=== PATIENT | female | born 1960 | race Caucasian/White ===

== ENCOUNTER 2022-11-07 15:54 | Outpatient (OUT) | payer MEDICARE, OTHER, MEDICAID, SELFPAY ==
--- NOTE | 2022-11-07 15:58 | XR_ITS ---
The [address] [address] Patient Name: CARLA ABDI MRN: [facility]:[id number] date: 1960 Sex: F Assigned Patient Location: [facility] Current Patient Location: Accession/Order Number: [id number] Exam Date: 11/07/2022 16:01 Report Date: 11/09/2022 07:31 At the request of: SOLITARIO EDWARDS Procedure: XR cervical spine 5V Exam: Radiographs: XR cervical spine 5V Reason for exam: M54.2 CERVICALGIA Comparison: Plain films dated 08/22/2021 XR/XR cervical spine 5V IMPRESSION: Anterior and posterior C4-C7 plate and screw fusion, hardware is intact. No radiographically evident cervical spine fractures or malalignment. Mild cervical spine degenerative changes. Remainder unremarkable. Electronically authenticated by: ADINA LOPEZ Date: 11/09/2022 07:31
== END 2022-11-07 15:55 | disposition home or self-care (01) ==
PROVIDERS: PCP Nurse Practitioner Family; Visit Provider Nurse Practitioner Family
DX: M54.2 Cervicalgia (principal)
CPT/HCPCS: 72050

== ENCOUNTER 2022-11-10 12:54 | Outpatient (OUT) | payer MEDICARE, OTHER, MEDICAID, SELFPAY ==
--- NOTE | 2022-11-10 15:32 | P.CN_ITS ---
Consult Note: HPI Data of Consult Patient: new to practice Consult date: 11/10/22 Requesting Physician: Manuel Reynaga MD Primary Care Provider: SOLITARIO EDWARDS Consult Narrative Reason for consult: neck pain, low back pain Narrative: 62yof who presents for evaluation. increasing axial neck pain that has been on going for years, but continues to worsen. previously underwent fusion c4-7. imaging reviewed, which is significant for spondylosis above level of fusion. engages in >6 weeks of provider directed home exercise, which provides minimal relief. utilizes various pain medications, with limited benefit. cc:: CC: Manuel Reynaga MD Review of Systems ROS Status of ROS 10 or more systems reviewed and unremarkable except as noted in history and below Exam Narrative Exam Narrative: Psych-alert and oriented x 3.? Attentive and appropriate, constitutionally normal, displays normal mood and affect per situation.? There are no obvious deficits in memory, reasoning, or intellect.? Skin-no obvious rashes, bruising, or erythema noted to the patient's area of pain. Extremities-upper extremities are warm with minimal edema and palpable pulses. Cervical- tenderness to palpation noted in the cervical spine and paraspinal musculature.? Pain is elicited with extension, and lateral rotation of the cervical spine.? Range of motion is slightly diminished due to pain. Facet loading maneuvers are positive bilaterally.? Coordination remains intact.? Gait remains non-antalgic. Assessment and Plan Assessment and Plan (1) Cervical spondylosis: (2) Cervical postlaminectomy syndrome: Plan 62yof who presents for evaluation. failed conservative measures. imaging reviewed, as noted. given symptoms and imaging, prudent to attempt diagnostic bilateral c2-3, c3-4 medial branch blocks under fluoroscopic guidance with intention of proceeding to radiofrequency ablation. she is in agreement. medications were reviewed. will trial robaxin 750mg tid prn. follow up after procedure.
== END 2022-11-10 12:55 | disposition home or self-care (01) ==
PROVIDERS: PCP Nurse Practitioner Family; Visit Provider Anesthesiology
DX: M47.812 Spondylosis without myelopathy or radiculopathy, cervical region (principal); M96.1 Postlaminectomy syndrome, not elsewhere classified
CPT/HCPCS: G0463

== ENCOUNTER 2022-11-11 11:43 | Outpatient (OUT) | payer MEDICARE, OTHER, MEDICAID, SELFPAY ==
--- NOTE | 2022-11-11 | XR_ITS ---
The [place] [id number] Patient Name: CARLA ABDI MRN: [facility]:[id number] date: 1960 Sex: F Assigned Patient Location: [facility] Current Patient Location: Accession/Order Number: [id number] Exam Date: 11/11/2022 12:05 Report Date: 11/12/2022 08:20 At the request of: OZZIE GIEDRADON Procedure: XR sacrum coccyx min 2V EXAMINATION: XR sacrum coccyx min 2V, XR lumbar spine 6V w bending HISTORY: Low back pain , chronic COMPARISON: No relevant comparison available. FINDINGS: BONES: 13 mm anterior listhesis of L4 on 5 without appreciable pars interarticularis defects. Moderate degenerative facet arthropathy L4-5, L5-S1. No compression fracture. DISC SPACES: Marked narrowing L4-5. Moderate narrowing L5-S1. PARASPINOUS: Negative. No paraspinous abnormality is seen. SACRUM: No fracture, disruption of the sacral ala line, or cortical irregularity. COCCYX: No fracture or suspicious alignment. SOFT TISSUES: No widening of the sacroiliac joints. No radiopaque foreign body. OTHER: Mild narrowing of the hip joint spaces, left greater than right. XR/XR sacrum coccyx min 2V IMPRESSION: 1. L4-5 grade 2 anterior listhesis and marked degenerative disc disease. 2. L5-S1 moderate degenerative disc disease. 3. Unremarkable sacrum and coccyx. 4. Mild degenerative changes of the hip joints, left greater than right. Electronically authenticated by: DENNY RINCON Date: 11/12/2022 08:20
--- NOTE | 2022-11-11 11:56 | XR_ITS ---
The [place] [id number] Patient Name: CARLA ABDI MRN: [facility]:[id number] date: 1960 Sex: F Assigned Patient Location: [facility] Current Patient Location: Accession/Order Number: [id number] Exam Date: 11/11/2022 12:05 Report Date: 11/12/2022 08:20 At the request of: LENORERI GIEDRAITIS Procedure: XR lumbar spine 6V w bending EXAMINATION: XR sacrum coccyx min 2V, XR lumbar spine 6V w bending HISTORY: Low back pain , chronic COMPARISON: No relevant comparison available. FINDINGS: BONES: 13 mm anterior listhesis of L4 on 5 without appreciable pars interarticularis defects. Moderate degenerative facet arthropathy L4-5, L5-S1. No compression fracture. DISC SPACES: Marked narrowing L4-5. Moderate narrowing L5-S1. PARASPINOUS: Negative. No paraspinous abnormality is seen. SACRUM: No fracture, disruption of the sacral ala line, or cortical irregularity. COCCYX: No fracture or suspicious alignment. SOFT TISSUES: No widening of the sacroiliac joints. No radiopaque foreign body. OTHER: Mild narrowing of the hip joint spaces, left greater than right. XR/XR lumbar spine 6V w bending IMPRESSION: 1. L4-5 grade 2 anterior listhesis and marked degenerative disc disease. 2. L5-S1 moderate degenerative disc disease. 3. Unremarkable sacrum and coccyx. 4. Mild degenerative changes of the hip joints, left greater than right. Electronically authenticated by: DENNY RINCON Date: 11/12/2022 08:20
== END 2022-11-11 11:44 | disposition home or self-care (01) ==
LOC: RAD 11:48
PROVIDERS: PCP Nurse Practitioner Family; Visit Provider Anesthesiology
DX: M54.50 Low back pain, unspecified (principal); M51.37 Other intervertebral disc degeneration, lumbosacral region; M51.36 Other intervertebral disc degeneration, lumbar region
CPT/HCPCS: 72114; 72220

== ENCOUNTER 2022-11-17 11:12 | Day surgery (SDC) | payer MEDICARE, OTHER, MEDICAID, SELFPAY ==
[2022-11-17 12:22] VITALS: BP 140/83; PULSE 82; RESP 16; TEMP 36.2; O2SAT 100
[2022-11-17] MEDS: BUPIVACAINE HCL 0.25% PF 25 MG/10 ML VIAL INJ (13:13)
[2022-11-17] MEDS: DEXAMETHASONE SODIUM PHOSPHATE 10 MG/ML VIAL INJ (13:13)
[2022-11-17] MEDS: LIDOCAINE HCL 2% PF 100 MG/5 ML VIAL INJ (13:14)
[2022-11-17 13:15] VITALS: BP 137/67; BP 160/72; PULSE 70; PULSE 81; RESP 18; O2SAT 94; O2SAT 95
--- NOTE | 2022-11-17 13:17 | W.PM.PROCNOT ---
Date of procedure: 11/17/22 Pre-op diagnosis: Cervical spondylosis Post-op diagnosis: same as pre-op Procedure: Procedure: Bilateral C2-3, C3-4 medial branch block Medications: Bupivacaine 0.25% 4cc The patient was seen and examined in the preoperative holding area.? The informed consent was obtained and placed on the chart.? The patient was brought to the medical procedure unit and placed in the prone position.? A timeout was completed verifying correct patient, procedure site, positioning, plan, and special equipment.? Using aseptic technique, the needle was placed at left C2.? Under direct fluoroscopic visualization, a Quincke tip needle was advanced to the midpoint of the waist of the articular pillar at the respective medial branch segment. The above-mentioned injectate was placed in a 1 mL aliquot proceeded by negative aspiration.? The needle was removed.? The procedure was completed at all left C3, 4. The same procedure, at the same levels, was then completed on the right side. Insertion site was covered.? Patient was taken to the postprocedural recovery area and monitored for an appropriate length of time before found suitable for discharge in the accompaniment of a responsible adult. Anesthesia: Local Surgeon: Manuel Reynaga Pathology: none sent Condition: stable Disposition: no change
== END 2022-11-17 13:23 | disposition home or self-care (01) ==
PROVIDERS: PCP Nurse Practitioner Family; Visit Provider Anesthesiology
DX: M47.812 Spondylosis without myelopathy or radiculopathy, cervical region (principal)
CPT/HCPCS: 64490; 64491; J1100

== ENCOUNTER 2022-12-04 09:06 | Outpatient (OUT) | payer MEDICARE, OTHER, MEDICAID, SELFPAY ==
--- NOTE | 2022-12-04 09:15 | PM.CN ---
Consult Note: HPI Data of Consult Patient: known to practice within the last 3 years Consult date: 12/04/22 Requesting Physician: Angle Brownlee NP Primary Care Provider: SOLITARIO EDWARDS Consult Narrative Reason for consult: F/u Narrative: Nancy Joyce a pleasant 62 year old female presents for evaluation of chronic neck pain, post cervical fusion. Patient recently underwent Bilateral C2-3, C3-4 medial branch block with >80% pain relief and functional improvement immediately following and hours after. Today rating pain 5/10 in neck and shoulders. Pain in bilateral hips and thighs today as well interfering with sleep. Patient has not noticed improvement in symptoms since starting robaxin, would like to discuss alternatives. cc:: CC: Angle Brownlee NP Review of Systems ROS Status of ROS 10 or more systems reviewed and unremarkable except as noted in history and below Musculoskeletal Reports: neck pain and joint pain (bilateral GTB) Meds Home Medications and Allergies Home Medications Medication Instructions Recorded Confirmed Type alprazolam 0.25 mg tablet (Xanax) 0.25 mg PO DAILY PRN anxiety 11/10/22 11/17/22 History diclofenac sodium 75 mg 75 mg PO BID 11/10/22 11/17/22 History tablet,delayed release escitalopram oxalate 10 mg tablet 10 mg PO DAILY 11/10/22 11/17/22 History (Lexapro) methocarbamol 750 mg tablet 750 mg PO TID 11/10/22 11/17/22 History Allergies Allergy/AdvReac Type Severity Reaction Status Date / Time No Known Drug Allergies Allergy Verified 11/10/22 16:09 Exam Constitutional Documenting provider has reviewed patient's vital signs: yes Common normals: no apparent distress, oriented x3, healthy appearing, alert and well nourished General appearance: cooperative [facility] Common normals: normocephalic, hearing grossly normal bilaterally and moist oral mucous membranes Head and scalp: normocephalic Eye Common normals: PERRL Pupil: PERRL Neck & C-Spine General: normal visual inspection Cervical spine: cervical ROM abnormal, pain with cervical ROM, cervical spine tenderness and paracervical muscle spasm Other: pain over C2-3 C3-4 facets no radiculopathy axial neck pain Chest Common normals: inspection of chest normal Respiratory Common normals: normal respiratory effort, no retractions and no use of accessory muscles Back & Pelvis Lumbar spine/lower back: pain with ROM Other: tenderness over bilateral GTB, pain radiates down lateral thighs when lying on side no radiculopathy negative internal/external rotation and thigh thrust. JIMENA negative Extremity Common normals: normal to inspection and full ROM Right lower extremity: hip joint Left lower extremity: hip joint Other: tenderness over bilateral GTB, pain radiates down lateral thighs when lying on side no radiculopathy negative internal/external rotation and thigh thrust. JIMENA negative Neuro Common normals: oriented x3, CN's II-XII intact bilaterally, moves all extremities, no focal motor deficits, no sensory deficits noted, deep tendon reflexes 2+ bilaterally and gait normal Sensorium/orientation: alert Motor exam: strength 5/5 throughout and no movement abnormalities noted Psych Common normals: mental status grossly normal, thought process normal, cooperative, affect normal, speech normal and activity/motor behavior normal Speech: normal speech Thought process: normal thought process Results Additional Findings Additional findings: I have checked an OARRS report on this patient today and there are no aberrancies noted in the prescribing history.?? A drug screen was completed and reviewed within the last year, and if there has not been a drug screen completed we ordered one today to monitor higher risk, state monitored pain medication use. As part of providing excellent, safe, comprehensive care, the following was completed at our patient's visit: 1. A medication reconciliation and review to ensure accurate knowledge of current/active medications, including asking our patients to inform us about any mcjl-smk-nodwfft medications or herbal remedies/nutritional supplements/alternative remedies. 2. A review to specifically ensure our patients have had annual screening for: elevated body mass index (BMI), tobacco use, screening for depression, and screening for unhealthy alcohol use. When screening is concerning, patients are provided with education and the specific recommendation to discuss the concerning health issue and treatment options with their primary care provider. Assessment and Plan Assessment and Plan (1) Cervical spondylosis: (2) Cervical postlaminectomy syndrome: (3) Muscle spasm: (4) Greater trochanteric bursitis of both hips: Assessment and Plan: encouraged heat/ice rest continue NSAIDs Plan proceed with bilateral C2-3 C3-4 MBB#2 under fluoroscopy continue HEP stop robaxin start baclofen 10mg tab 1/2-1 tab BID PRN muscle spasms continue voltaren 75mg BID patient utilizes prn xanax encouraged heat/ice rest for bilateral GT bursitis, can consider injection therapy in the future f/u 1 week after MBB #2
== END 2022-12-04 09:07 | disposition home or self-care (01) ==
LOC: PM 09:07
PROVIDERS: PCP Nurse Practitioner Family; Visit Provider Nurse Practitioner
DX: M47.812 Spondylosis without myelopathy or radiculopathy, cervical region (principal); M62.838 Other muscle spasm; M70.62 Trochanteric bursitis, left hip; M70.61 Trochanteric bursitis, right hip; M96.1 Postlaminectomy syndrome, not elsewhere classified
CPT/HCPCS: G0463

== ENCOUNTER 2022-12-15 10:07 | Day surgery (SDC) | payer MEDICARE, OTHER, MEDICAID, SELFPAY ==
[2022-12-15 10:20] VITALS: BP 144/90; PULSE 80; RESP 16; TEMP 36.2; O2SAT 97
[2022-12-15 11:12] VITALS: BP 169/84; PULSE 84; RESP 18; O2SAT 98
[2022-12-15] MEDS: BUPIVACAINE HCL 0.25% PF 25 MG/10 ML VIAL 5 ML INJ (11:14)
[2022-12-15] MEDS: DEXAMETHASONE SOD PHOS 10 MG/ML VIAL 5 MG INJ (11:14)
[2022-12-15] MEDS: LIDOCAINE HCL 2% PF 100 MG/5 ML VIAL INJ (11:15)
[2022-12-15 11:16] VITALS: BP 168/80; PULSE 82; RESP 18; O2SAT 94
--- NOTE | 2022-12-15 11:17 | W.PM.PROCNOT ---
Date of procedure: 12/15/22 Pre-op diagnosis: Cervical spondylosis Post-op diagnosis: same as pre-op Procedure: Procedure: Bilateral C2-3, C3-4 medial branch block Medications: Bupivacaine 0.25% 4cc The patient was seen and examined in the preoperative holding area.? The informed consent was obtained and placed on the chart.? The patient was brought to the medical procedure unit and placed in the prone position.? A timeout was completed verifying correct patient, procedure site, positioning, plan, and special equipment.? Using aseptic technique, the needle was placed at left C2.? Under direct fluoroscopic visualization, a Quincke tip needle was advanced to the midpoint of the waist of the articular pillar at the respective medial branch segment. The above-mentioned injectate was placed in a 1 mL aliquot proceeded by negative aspiration.? The needle was removed.? The procedure was completed at all left C3, 4. The same procedure, at the same levels, was then completed on the right side. Insertion site was covered.? Patient was taken to the postprocedural recovery area and monitored for an appropriate length of time before found suitable for discharge in the accompaniment of a responsible adult. Anesthesia: Local Surgeon: Manuel Reynaga Pathology: none sent Condition: stable Disposition: no change
== END 2022-12-15 11:23 | disposition home or self-care (01) ==
PROVIDERS: PCP Nurse Practitioner Family; Visit Provider Anesthesiology
DX: M47.812 Spondylosis without myelopathy or radiculopathy, cervical region (principal)
CPT/HCPCS: 64490; 64491; J1100

== ENCOUNTER 2022-12-25 14:15 | Outpatient (OUT) | payer MEDICARE, OTHER, MEDICAID, SELFPAY ==
--- NOTE | 2022-12-25 14:39 | PM.CN ---
Consult Note: HPI Data of Consult Patient: known to practice within the last 3 years Requesting Physician: Angle Brownlee NP Primary Care Provider: SOLITARIO EDWARDS Consult Narrative Reason for consult: f/u Narrative: Nancy Joyce a pleasant 62 year old female presents for evaluation and management of chronic neck pain. Patient rating pain 7/10 pulling sharp pain. Patient had 80% pain relief and functional improvement immediately after and hours following bilateral C2-3 C3-4 MBB #2. Patient would like to purse thermal RFA but she is leaving for [place] until spring as of this week. Patient would like to discuss medication management today. cc:: CC: Angle Brownlee NP Review of Systems ROS Status of ROS 10 or more systems reviewed and unremarkable except as noted in history and below Musculoskeletal Reports: back pain Meds Home Medications and Allergies Home Medications Medication Instructions Recorded Confirmed Type alprazolam 0.25 mg tablet (Xanax) 0.25 mg PO DAILY PRN anxiety 11/10/22 12/15/22 History diclofenac sodium 75 mg 75 mg PO BID 11/10/22 12/15/22 History tablet,delayed release escitalopram oxalate 10 mg tablet 10 mg PO DAILY 11/10/22 12/15/22 History (Lexapro) methocarbamol 750 mg tablet 750 mg PO TID 11/10/22 12/15/22 History Allergies Allergy/AdvReac Type Severity Reaction Status Date / Time No Known Drug Allergies Allergy Verified 12/15/22 10:25 Exam Constitutional Documenting provider has reviewed patient's vital signs: yes Common normals: no apparent distress, oriented x3, healthy appearing, alert and well nourished General appearance: cooperative HENMT Common normals: normocephalic, hearing grossly normal bilaterally and moist oral mucous membranes Head and scalp: normocephalic Eye Common normals: PERRL Pupil: PERRL Neck & C-Spine Common normals: full ROM General: normal visual inspection Cervical spine: cervical ROM abnormal, pain with cervical ROM, cervical spine tenderness and paracervical muscle spasm Other: pain over C2-3 C3-4 facets no radiculopathy axial neck pain Chest Common normals: inspection of chest normal Respiratory Common normals: normal respiratory effort, no retractions and no use of accessory muscles Back & Pelvis Lumbar spine/lower back: pain with ROM Other: tenderness over bilateral GTB, pain radiates down lateral thighs when lying on side no radiculopathy negative internal/external rotation and thigh thrust. JIMENA negative Extremity Common normals: normal to inspection and full ROM Right lower extremity: hip joint Left lower extremity: hip joint Other: tenderness over bilateral GTB, pain radiates down lateral thighs when lying on side no radiculopathy negative internal/external rotation and thigh thrust. JIMENA negative Neuro Common normals: oriented x3, CN's II-XII intact bilaterally, moves all extremities, no focal motor deficits, no sensory deficits noted and deep tendon reflexes 2+ bilaterally Sensorium/orientation: alert Motor exam: strength 5/5 throughout and no movement abnormalities noted Psych Common normals: mental status grossly normal, thought process normal, cooperative, affect normal, speech normal and activity/motor behavior normal Speech: normal speech Thought process: normal thought process Results Additional Findings Additional findings: I have checked an OARRS report on this patient today and there are no aberrancies noted in the prescribing history.?? A drug screen was completed and reviewed within the last year, and if there has not been a drug screen completed we ordered one today to monitor higher risk, state monitored pain medication use. As part of providing excellent, safe, comprehensive care, the following was completed at our patient's visit: 1. A medication reconciliation and review to ensure accurate knowledge of current/active medications, including asking our patients to inform us about any jrck-kqg-ptmvnst medications or herbal remedies/nutritional supplements/alternative remedies. 2. A review to specifically ensure our patients have had annual screening for: elevated body mass index (BMI), tobacco use, screening for depression, and screening for unhealthy alcohol use. When screening is concerning, patients are provided with education and the specific recommendation to discuss the concerning health issue and treatment options with their primary care provider. 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
== END 2022-12-25 14:16 | disposition home or self-care (01) ==
LOC: PM 14:19
PROVIDERS: PCP Nurse Practitioner Family; Visit Provider Nurse Practitioner
DX: M47.812 Spondylosis without myelopathy or radiculopathy, cervical region (principal); M96.1 Postlaminectomy syndrome, not elsewhere classified; M62.838 Other muscle spasm; M70.62 Trochanteric bursitis, left hip; M70.61 Trochanteric bursitis, right hip; Z79.899 Other long term (current) drug therapy
CPT/HCPCS: G0463

== ENCOUNTER 2023-07-06 12:43 | Outpatient (OUT) | payer MEDICARE, OTHER, MEDICAID, SELFPAY ==
--- OUTSIDE RECORDS SUMMARY | 2023-07-06 13:04 | XMS_ITS | CCD ---
Author Organization [facility] Care Team Providers Care Director [facility] Name Role Phone MD Nesha Bryant Attending Provider JIE Edwards Primary Care Provider 1( [phone] Asadelfino, Imad Unavailable Ama Edwards Primary Care Unavailable Asaad, Imad Attending Unavailable Asaad, Imad Admitting Unavailable JERRY, AMA Attending Unavailable JERRY, AMA Consulting Unavailable JERRY, AMA Primary Care Unavailable JERRY, AMA Admitting Unavailable JERRY, AMA Attending Unavailable JERRY, AMA Primary Care Unavailable JERRY, AMA Admitting Unavailable PAULINO, LOLIS Admitting Unavailable PAULINO, LOLIS Attending Unavailable PAULINO, LOLIS Consulting Unavailable JERRY, AMA Primary Care Unavailable SOLEDAD, DR GEORGE Lam Consulting Unavailable JERRY, AMA Attending Unavailable JERRY, AMA Primary Care Unavailable JERRY, AMA Admitting Unavailable JERRY, AMA Consulting Unavailable JERRY, AMA Admitting Unavailable ZIEBER, DR DENNY Franz Consulting Unavailable JERRY, AMA Attending Unavailable JERRY, AMA Primary Care Unavailable JERRY, AMA Consulting Unavailable JERRY, AMA Admitting Unavailable JERRY, AMA Attending Unavailable ZIEBSAUL, DR DENNY Franz Consulting Unavailable JERRY, AMA Primary Care Unavailable JERRY, AMA Consulting Unavailable George Catalan Unavailable JERRY, AMA Primary Care Unavailable JERRY, AMA Attending Unavailable JERRY, AMA Primary Care Unavailable SOLEDAD, DR GEORGE Lam Consulting Unavailable JERRY, AMA Admitting Unavailable JERRY, AMA Consulting Unavailable Juhi LEON, Manuel Yoo Attending Unavailable Juhi LEON, Manuel Yoo Attending Unavailable Juhi LEON, Manuel Yoo Attending Unavailable Medications Current Medications Medication Drug Class(es) Dates Sig (Normalized) Sig (Original) ALPRAZolam 0.25 mg oral tablet (3 sources) Benzodiazepine Start: 05-09-2022 take 0.25 mg by mouth once daily Alprazolam Active 0.25 MG PO Daily May 09, 2022 12:00am ALPRAZolam Activ e busPIRone hydrochloride 10 mg oral tablet (1 source) Start: 05-09-2022 Buspirone Active 10 MG PO As Directed May 09, 2022 12:00am hydrOXYzine hydrochloride 10 mg oral tablet (2 sources) Antihistamine hydrOXYzine HCl 10 MG as directed Orally Active omeprazole 40 mg delayed release oral capsule (2 sources) Proton Pump Inhibitor Start: 05-12-2022 take 1 capsule by mouth once daily Omeprazole 40 MG 1 capsule 30 minutes before morning meal Orally Once a day for 30 days Apr, Active polyethylene glycol 3350 555896 mg / potassium chloride 2970 mg / sodium bicarbonate 6740 mg / sodium chloride 5860 mg / sodium sulfate 05283 mg powder for oral solution (2 sources) Osmotic Laxative Start: 05-01-2022 PEG-3350/Electrol ytes 236 GM as directed Orally once daily for 1 days Apr, Active Problems Active Problems Problem Classification Problem Date Documented Da te Episodic/Chronic Disorders of lipid metabolism (1 source) Hyperlipidemia, unspecified; Translations: [HYPERLIPIDEMIA UNSPECIFIED] Onset: 03-17-2022 Chronic Other gastrointestinal disorders (2 sources) Diarrhea; Translations: [Diarrhea, unspecified] Episodic Other gastrointestinal disorders (2 sources) Dysphagia; Translations: [Dysphagia, unspecified] Episodic Other nutritional; endocrine; and metabolic disorders (2 sources) Weight loss; Translations: [Abnormal weight loss] Episodic Spondylosis; intervertebral disc disorders; other back problems (1 source) Other cervical disc degeneration, unspecified cervical region; Translations: [OTH CERV DISC DEGENERATION UNS CERV] Onset: 08-28-2021 Chronic Substance-related disorders (5 sources) Nicotine dependence, unspecified, uncomplicated; Translations: [NICOTINE DEPEND UNS UNCOMPLICATED] Onset: 08-22-2021 Chronic Unclassified (1 source) Encounter for screening for malignant neoplasm of colon; Translations: [Encounter for screening for malignant neoplasm of colon] Onset: 05-09-2022 Unclassified (3 sources) CONTACT W/AND (SUSP) EXPOS COVID-19; Translations: [CONTACT W/AND (SUSP) EXPOS COVID-19] Onset: 02-01-2022 Unclassified (1 source) COUGH, UNSPECIFIED; Translations: [COUGH, UNSPECIFIED] Onset: 02-01-2022 Past or Other Problems Problem Classification Problem Date Documented Da te Episodic/Chronic Deficiency and other anemia (1 source) Anemia, unspecified; Translations: [ANEMIA UNSPECIFIED] Onset: 03-17-2022 Episodic Diabetes mellitus without complication (1 source) Other abnormal glucose; Translations: [OTHER ABNORMAL GLUCOSE] Onset: 03-17-2022 Episodic Fever of unknown origin (1 source) Fever, unspecified; Translations: [FEVER UNSPECIFIED] Onset: 02-01-2022 Episodic Other gastrointestinal disorders (5 sources) Dysphagia, unspecified; Translations: [DYSPHAGIA UNSPECIFIED] Onset: 03-25-2022 Episodic Other nutritional; endocrine; and metabolic disorders (5 sources) Abnormal weight loss; Translations: [ABNORMAL WEIGHT LOSS] Onset: 03-12-2022 Episodic Other screening for suspected conditions (not mental disorders or infectious disease) (6 sources) Encounter for screening for malignant neoplasm of colon; Translations: [Encounter for screening for malignant neoplasm of rectum] Onset: 08-23-2021 Episodic Residual codes; unclassified (4 sources) Contact with and (suspected) exposure to potentially hazardous body fluids; Translations: [CONTACT AND EXPOS POTENTL HAZ BDY FLUID] Onset: 08-23-2021 Episodic Spondylosis; intervertebral disc disorders; other back problems (2 sources) Cervicalgia; Translations: [Pain in thoracic spine] Onset: 08-28-2021 Episodic Unclassified (1 source) CONTACT W/AND (SUSP) EXPOS COVID-19; Translations: [CONTACT W/AND (SUSP) EXPOS COVID-19] Onset: 01-27-2022 Results Test Name Value Interpretation Reference Range Facility [facility] 05-09-2022 L Specimen: [id number] Received: 05/09/22 Status: EDUARD Zaragoza Num: [id number] Spec Type: Surgical Subm Dr: Nesha Bryant MD Tissues: A Gastric Biopsy (GASTRIC) B Esophagus Biopsy (DISTAL ESOPHAGUS) C Esophagus Biopsy (PROXIMAL ESOPHAGUS) D Colon Biopsy (CECAL POLYP) E Colon Biopsy (SIGMOID POLYP) F Colon Biopsy (RECTAL POLYPS X3) Procedures: , Gross/Micro L4/6 Age/ Patient Sex Location Account Attending Physician Nancy Joyce 61/F [id number] Nesha Bryant MD SPEC NUM: [id number] RECD: 05/09/22 STATUS: EDUARD ZARAGOZA NUM: [id number] KATY: 05/09/22- SUBM DR: Nesha Bryant MD ENTERED: 05/09/22-[address]: SPEC TYPE: Surgical DEPT: S ORDERED: , Gross/Micro L4/6 ORDERED: , Gross/Micro L4/6 Pathological Diagnosis A. Stomach, gastric, biopsy: - Chronic gastritis, mild, nonspecific. - Negative for Helicobacter pylori on H E stain. B. Esophagus, distal, biopsy: - Squamous mucosa, negative for significant histopathologic changes. - Negative for Oconnell?s esophagus (H E stain). - Negative for dysplasia. - Negative for eosinophilic esophagitis. C. Esophagus, proximal, biopsy: - Squamous mucosa, negative for significant histopathologic changes. - Negative for Oconnell?s esophagus (H E stain). - Negative for dysplasia. - Negative for eosinophilic esophagitis. D. Colon, cecum, polyp, biopsy: - Colonic mucosal fold. - Negative for adenoma/dysplasia. Specimen: [id number] Received: 05/09/22 Status: EDUARD Nik Num: [id number] Spec Type: Surgical Subm Dr: Nesha Bryant MD Tissues: A Gastric Biopsy (GASTRIC) B Esophagus Biopsy (DISTAL ESOPHAGUS) C Esophagus Biopsy (PROXIMAL ESOPHAGUS) D Colon Biopsy (CECAL POLYP) E Colon Biopsy (SIGMOID POLYP) F Colon Biopsy (RECTAL POLYPS X3) Procedures: , Gross/Micro L4/6 Patient: Nancy Joyce [id number] (Continued) Specimen: Received: 05/09/22 (Continued) Pathological Diagnosis (Continued) Signed (signature on file) Carin Oliveros MD 05/12/22 1130 Specimen: Received: 05/09/22 Status: EDUARD Zaragoza Num: [id number] Spec Type: Surgical Subm Dr: Nesha Bryant MD Tissues: A Gastric Biopsy (GASTRIC) B Esophagus Biopsy (DISTAL ESOPHAGUS) C Esophagus Biopsy (PROXIMAL ESOPHAGUS) D Colon Biopsy (CECAL POLYP) E Colon Biopsy (SIGMOID POLYP) F Colon Biopsy (RECTAL POLYPS X3) Procedures: ROSI/Barbara, Gross/Micro L4/6 Patient: Nancy Joyce [id number] (Continued) Specimen: Received: 05/09/22 (Continued) Pathological Diagnosis (Continued) E. Colon, sigmoid, polyp, biopsy: - Features suggestive of hyperplastic polyp. F. Rectum, polyp, biopsy: - Colonic mucosal fold. - Negative for adenoma/dysplasia. Clinical Information Dysphagia, rule out H. pylori, rule out EOE Gross Description A. Received in formalin labeled with the patient's name, number and gastric rule out H. pylori are two fragments of soft roblero tissue measuring 0.2 cm and 0.3 cm. Entirely submitted in one cassette labeled A1. B. Received in formalin labeled with the patient's name, number and distal esophagus rule out EOE is one fragment of soft roblero tissue measuring 0.4 x 0.2 x 0.2 cm. Entirely submitted in one cassette labeled B1. C. Received in formalin labeled with the patient's name, number and proximal esophagus rule out EOE are two fragments of soft roblero tissue measuring 0.2 x 0.2 x 0.1 cm and 0.4 x 0.2 x 0.1 cm. Entirely submitted in one cassette labeled C1. D. Received in formalin labeled with the patient's name, number and cecal polyp is one fragment of soft roblero tissue measuring 0.4 x 0.4 x 0.2 cm. Entirely submitted in one cassette labeled D1. E. Received in formalin labeled with the patient's name, number and sigmoid polyp are two fragments of soft roblero tissue measuring 0.2 x 0.2 x 0.1 cm and 0.4 x 0.3 x 0.2 cm. Entirely submitted in one cassette labeled 1. (more content not included)... Normal [facility] XR MODIFIED BARIUM SWALLOWon 03-25-2022 XR MODIFIED BARIUM SWALLOW EXAMINATION: XR MODIFIED BARIUM SWALLOW HISTORY: Dysphagia COMPARISON: No relevant comparison available. TECHNIQUE: A swallowing evaluation was performed with fluoroscopy in the usual manner. Standard level fluoroscopic mode of operation utilized. FINDINGS: ORAL PHASE: Limited due to lack of dentures and multiple recently pulled teeth. Solids were not provided for evaluate of chewing function. Slight delay in initiation of swallowing with pudding and thickened liquid. PHARYNGEAL PHASE: Normal swallowing once initiated. ASPIRATION: None. STRUCTURE: Normal. No visible obstruction, stricture, or dilatation. OTHER: Negative. IMPRESSION: 1. No aspiration, penetration, or abnormal swallowing function was initiated. 2. Slight difficulty in initiating swallowing function. 3. Please see speech pathologist report for additional discussion and recommendations. Electronically authenticated by: DENNY RINCON Date: 2022-03-25 13:53 Normal [facility] INSULINon 03-13-2022 Insulin 3.9 uIU/mL Normal 2.6-24.9 [facility] Comment on above: Performed By: #### O BSCRN #### [facility] [address] [address] [address] Ambrosio Ramirez XR CSPINE MIN 4 VIEWSon 02-23 XR CSPINE MIN 4 VIEWS EXAMINATION: XR CSPINE MIN 4 VIEWS HISTORY: Neck pain ; chronic neck and upper midline back pain COMPARISON: XR C-spine 08/22/2021 FINDINGS: BONES: Anterior and posterior mechanical fusion of C4-C7 without evidence of hardware fracture or loosening. Posterior decompression C4. Straightening of the normal lordotic curvature. DISC SPACES: Mild narrowing C2-3, C3-4. Intervertebral disc spacers C4-5 through C6-7. PARASPINOUS: Negative. No paraspinous abnormality is seen. OTHER: Negative. IMPRESSION: 1. Stable surgical changes without evidence of hardware failure or change in alignment. 2. Grossly stable degenerative changes. Electronically authenticated by: DENNY RINCON Date: 2022-03-13 08:09 Normal [facility] CBC AUTO DIFFon 03-12-2022 BASO # 0.0 103/ul Normal 0.0-0.1 [facility] Comment on above: Performed By: #### C BC #### [facility] [address] [address] [address] Ambrosio Ramirez Basophils/100 WBC (Bld) 0.7 % Normal 0.2-2.0 [facility] Comment on above: Performed By: #### C BC #### [facility] [address] [address] [address] Ambrosio Ramirez EO # 0.1 103/ul Normal 0.0-0.7 [facility] Comment on above: Performed By: #### C BC #### [facility] [address] [address] [address] Ambrosio Ramirez Eosinophils/100 WBC (Bld) 0.9 % Normal 0.9-7.0 [facility] Comment on above: Performed By: #### C BC #### [facility] [address] [address] [address] Ambrosio Ramirez Erythrocyte distribution width (RBC) [Ratio] 12.3 % Normal 11.0-15.0 [facility] Comment on above: Performed By: #### C BC #### [facility] [address] [place] [address] Dr. Ambrosio Ramirez Hematocrit (Bld) [Volume fraction] 46.0 % Normal 36.0-48.0 [facility] Comment on above: Performed By: #### C BC #### [facility] [address] [place] [address] Dr. Ambrosio Ramirez Hemoglobin (Bld) [Mass/Vol] 15.2 g/dL Normal 12.0-16.0 [facility] Comment on above: Performed By: #### C BC #### [facility] [address] [place] [address] Dr. Ambrosio Ramirez IG # 0.03 10e3/ul Normal 0.00-0.03 [facility] Comment on above: Performed By: #### C BC #### [facility] [address] [place] [address] Dr. Ambrosio Ramirez IG % 0.5 % Normal 0.0-0.5 [facility] Comment on above: Performed By: #### C BC #### [facility] [address] [place] [address] Dr. Ambrosio Ramirez LYMPH # 2.0 103/ul Normal 1.2-3.8 [facility] Comment on above: Performed By: #### C BC #### [facility] [address] [place] [address] Dr. Ambrosio Ramirez Lymphocytes/100 WBC (Bld) 35.0 % Normal 20.5-60.0 [facility] Comment on above: Performed By: #### C BC #### [facility] [address] [place] [address] Dr. Ambrosio Ramirez MANUAL DIFF REQ NO Normal [facility] Comment on above: Performed By: #### C BC #### [facility] [address] [place] [address] Dr. Ambrosio Ramirez MCH (RBC) [Entitic mass] 33.8 pg Normal 26.7-34.0 [facility] Comment on above: Performed By: #### C BC #### [facility] [address] [place] [address] Dr. Ambrosio Ramirez MCHC (RBC) [Mass/Vol] 33.0 g/dL Normal 29.9-35.2 [facility] Comment on above: Performed By: #### C BC #### [facility] [address] [place] [address] Dr. Ambrosio Ramirez MCV (RBC) [Entitic vol] 102.2 fL Critically high 81.0-99.0 [facility] Comment on above: Performed By: #### C BC #### [facility] [address] [place] [address] Dr. Ambrosio Ramirez MONO # 0.4 103/ul Normal 0.3-0.8 [facility] Comment on above: Performed By: #### C BC #### [facility] [address] [place] [address] Dr. Ambrosio Ramirez Monocytes/100 WBC (Bld) 7.2 % Normal 1.7-12.0 [facility] Comment on above: Performed By: #### C BC #### [facility] [address] [place] [address] Dr. Ambrosio Ramirez NEUT # 3.2 103/ul Normal 1.4-6.5 [facility] Comment on above: Performed By: #### C BC #### [facility] [address] [place] [address] Dr. Ambrosio Ramirez Neutrophils/100 WBC (Bld) 55.7 % Normal 43.0-75.0 [facility] Comment on above: Performed By: #### C BC #### [facility] [address] [place] [address] Dr. Ambrosio Ramirez Platelet mean volume (Bld) [Entitic vol] 9.1 fL Critically low 9.5-13.5 [facility] Comment on above: Performed By: #### C BC #### [facility] [address] [address] [address] Ambrosio Ramirez PLT 234 103/ul Normal 150-450 [facility] Comment on above: Performed By: #### C BC #### [facility] [address] [address] [address] Ambrosio Ramirez RBC 4.50 106/ul Normal 4.20-5.40 [facility] Comment on above: Performed By: #### C BC #### [facility] [address] [place] [address] Dr. Ambrosio Ramirez WBC 5.7 103/ul Normal 4.0-11.0 [facility] Comment on above: Performed By: #### C BC #### [facility] [address] [place] [address] Dr. Ambrosio Ramirez FREE THYROXINE INDEX T7on FTI 2.41 Normal 1.30-4.50 [facility] Comment on above: Performed By: #### A 1C #### [facility] [address] [place] [address] Dr. Ambrosio Ramirez T3U 33.0 % Normal 30.0-39.0 [facility] Comment on above: Performed By: #### A 1C #### [facility] [address] [place] [address] Dr. Ambrosio Ramirez T4 [Mass/Vol] 7.30 ug/dL Normal 4.80-13.90 [facility] Comment on above: Performed By: #### A 1C #### [facility] [address] [place] [address] Dr. Ambrosio Ramirez GLYCOHEMOGLOBIN A1Con 2022 ADA RECOMMENDATION SEE BELOW Normal [facility] Comment on above: Result Comment: ADA RECOMMENDED LIMIT 4.0 - 6.0 ADA THERAPEUTIC TARGET < 7.0 ACTION SUGGESTED > 7.0 Performed By: #### A 1C #### [facility] [address] [place] [address] Dr. Ambrosio Ramirez Glucose [Mass/Vol] 100 mg/dL Normal [facility] Comment on above: Performed By: #### A 1C #### [facility] [address] [address] [address] Ambrosio Ramirez HbA1c (Bld) [Mass fraction] 5.1 % Normal 4.5-6.2 [facility] Comment on above: Performed By: #### A 1C #### [facility] [address] [address] [address] Ambrosio Ramirez IRONon 03-12-2022 Iron [Mass/Vol] 148.0 ug/dL Normal 50.0-170.0 [facility] Comment on above: Performed By: #### O BSCRN #### [facility] [address] [place] [address] Dr. Ambrosio Ramirez LIPID PROFILEon 03-12-2022 CHOL-HDL RATIO NORM SEE BELOW Normal [facility] Comment on above: Result Comment: 3.3 - 4.4 LOW RISK 4.4 - 7.1 AVERAGE RISK 7.1 - 11.0 MODERATE RISK >11.0 HIGH RISK Performed By: #### A 1C #### [facility] [address] [place] [address] Dr. Ambrosio Ramirez Cholesterol [Mass/Vol] 234 mg/dL Critically high <=200 [facility] Comment on above: Performed By: #### A 1C #### [facility] [address] [place] [address] Dr. Ambrosio Ramirez Cholesterol in HDL [Mass/Vol] 71 mg/dL Critically high 40-60 [facility] Comment on above: Performed By: #### A 1C #### [facility] [address] [address] [address] Ambrosio Ramirez Cholesterol in LDL [Mass/Vol] 132.4 mg/dL Normal [facility] Comment on above: Performed By: #### A 1C #### [facility] [address] [place] [address] Dr. Ambrosio Ramirez Cholesterol.total/Cho lesterol in HDL [Mass ratio] 3.3 {ratio} Normal [facility] Comment on above: Performed By: #### A 1C #### [facility] [address] [place] [address] Dr. Ambrosio Ramirez HDL NORMAL > or = 60 mg/dl - LOW CARDIOVASCULAR RISK <40 mg/dl - HIGH CARDIOVASCULAR RISK Normal [facility] Comment on above: Performed By: #### A 1C #### [facility] [address] [address] [address] Ambrosio Ramirez LDL CALC NORMAL SEE BELOW Normal [facility] Comment on above: Result Comment: <100 mg/dl OPTIMAL 100 - 129 mg/dl NEAR OR ABOVE OPTIMAL 130 - 159 mg/dl BORDERLINE HIGH 160 - 189 mg/dl HIGH >190 mg/dl VERY HIGH Performed By: #### A 1C #### [facility] [address] [address] [address] Ambrosio Ramirez Triglyceride [Mass/Vol] 153 mg/dL Critically high <=150 [facility] Comment on above: Performed By: #### A 1C #### [facility] [address] [address] [address] Ambrosio Ramirez VLDL CALC 30.6 mg/dL Normal [facility] Comment on above: Performed By: #### A 1C #### [facility] [address] [address] [address] Ambrosio Ramirez PROF 14(COMP METB)on 023 Albumin [Mass/Vol] 4.2 g/dL Normal 3.4-5.0 [facility] Comment on above: Performed By: #### A 1C #### [facility] [address] [place] [address] Dr. Ambrosio Ramirez Albumin/Globulin [Mass ratio] 1.3 {ratio} Normal [facility] Comment on above: Performed By: #### A 1C #### [facility] [address] [address] [address] Ambrosio Ramirez ALP [Catalytic activity/Vol] 62 U/L Normal 46-116 [facility] Comment on above: Performed By: #### A 1C #### [facility] [address] [place] [address] Dr. Ambrosio Ramirez ALT [Catalytic activity/Vol] 27 U/L Normal 14-59 [facility] Comment on above: Performed By: #### A 1C #### [facility] [address] [address] [address] Ambrosio Ramirez Anion gap [Moles/Vol] 12.8 mmol/L Normal [facility] Comment on above: Performed By: #### A 1C #### [facility] [address] [place] [address] Dr. Ambrosio Ramirez AST [Catalytic activity/Vol] 39 U/L Critically high 15-37 [facility] Comment on above: Performed By: #### A 1C #### [facility] [address] [address] [address] Ambrosio Ramirez Bilirubin [Mass/Vol] 0.4 mg/dL Normal 0.2-1.0 [facility] Comment on above: Performed By: #### A 1C #### [facility] [address] [place] [address] Dr. Ambrosio Ramirez Calcium [Mass/Vol] 9.1 mg/dL Normal 8.5-10.1 [facility] Comment on above: Performed By: #### A 1C #### [facility] [address] [place] [address] Dr. Ambrosio Ramirez Chloride [Moles/Vol] 103 mmol/L Normal 98-107 [facility] Comment on above: Performed By: #### A 1C #### [facility] [address] [place] [address] Dr. Ambrosio Ramirez CO2 [Moles/Vol] 30.5 mmol/L Normal 21.0-32.0 [facility] Comment on above: Performed By: #### A 1C #### [facility] [address] [place] [address] Dr. Ambrosio Ramirez Creatinine [Mass/Vol] 0.54 mg/dL Critically low 0.55-1.02 [facility] Comment on above: Performed By: #### A 1C #### [facility] [address] [place] [address] Dr. Ambrosio Ramirez EGFR-AF GREEK >60 Normal >=60 [facility] Comment on above: Performed By: #### A 1C #### [facility] [address] [place] [address] Dr. Ambrosio Ramirez EGFR-NON AF GREEK >60 Normal >=60 [facility] Comment on above: Performed By: #### A 1C #### [facility] [address] [place] [address] Dr. Ambrosio Ramirez Globulin (S) [Mass/Vol] 3.3 g/dL Normal [facility] Comment on above: Performed By: #### A 1C #### [facility] [address] [address] [address] Ambrosio Ramirez Glucose [Mass/Vol] 88 mg/dL Normal 74-106 [facility] Comment on above: Performed By: #### A 1C #### [facility] [address] [place] [address] Dr. Ambrosio Ramirez Potassium [Moles/Vol] 4.3 mmol/L Normal 3.5-5.1 [facility] Comment on above: Performed By: #### A 1C #### [facility] [address] [place] [address] Dr. Ambrosio Ramirez Protein [Mass/Vol] 7.5 g/dL Normal 6.4-8.2 [facility] Comment on above: Performed By: #### A 1C #### [facility] [address] [place] [address] Dr. Ambrosio Ramirez Sodium [Moles/Vol] 142 mmol/L Normal 136-145 [facility] Comment on above: Performed By: #### A 1C #### [facility] [address] [place] [address] Dr. Ambrosio Ramirez Urea nitrogen [Mass/Vol] 9.0 mg/dL Normal 7.0-18.0 [facility] Comment on above: Performed By: #### A 1C #### [facility] [address] [place] [address] Dr. Ambrosio Ramirez Urea nitrogen/Creatinine [Mass ratio] 16.7 mg/mg Normal [facility] Comment on above: Performed By: #### A 1C #### [facility] [address] [place] [address] Dr. Ambrosio Ramirez TSHon 03-12-2022 TSH 1.934 uIU/mL Normal 0.358-3.740 [facility] Comment on above: Performed By: #### A 1C #### [facility] [address] [address] [address] Ambrosio Ramirez XR TSPINE 3 VIEWSon 03-12-19 23 XR TSPINE 3 VIEWS EXAM: Thoracic spine HISTORY: . Pain in thoracic spine . COMPARISON: None. TECHNIQUE: 3 views. FINDINGS: Thoracic vertebral body heights are well-maintained. Mild disc space during is noted at multiple levels. Small spurs are noted involving the thoracic vertebral bodies. Pedicles appear intact. There is been previous posterior fusion of the mid and lower cervical spine. Impression: 1. Mild degenerative disc disease and spondylosis of the thoracic spine. Electronically authenticated by: GEORGE CATALAN Date: 2022-03-12 17:07 Normal [facility] Covid-19 PCR (CVDTB)on SARS-CoV-2 (COVID-19) RNA JAYY+probe Ql (Unsp spec) Not detected Normal NOT DETECTED [facility] Comment on above: Result Comment: When diagnostic testing is negative, the possibility of a false negative should be considered in the context of a patient's recent exposures and the presence of clinical signs and symptoms consistent with SARS-CoV-2. This test is not yet approved or cleared by the [place] FDA. When there are no FDA-approved or cleared tests available, and other criteria are met, FDA can make tests available under an emergency access mechanism called an Emergency Use Authorization (EUA). The EUA for this test is supported by the [place] of Health and Human Service's declaration that circumstances exist to justify the emergency use of in vitro diagnostics for the detection and/or diagnosis of the virus that causes COVID-19. This EUA will remain in effect for the duration of the COVID-19 declaration justifying emergency of IVDs, unless it is terminated or revoked by the FDA (after which the test may no longer be used). Performed By: #### C VDTBH #### [facility] [address] [place], [place] [address] Dr. Ambrosio Ramirez INFLUENZA A AND B AGon 01-27 INFLUENZA A AG Negative Normal NEGATIVE SEE COMMENT [facility] Comment on above: Performed By: #### I NFLUAB #### [facility] [address] [address] [address] Ambrosio Ramirez INFLUENZA B AG Negative Normal NEGATIVE SEE COMMENT [facility] Comment on above: Performed By: #### I NFLUAB #### [facility] [address] [place] [address] Dr. Ambrosio Ramirez INTERNAL CONTROLS Within Normal Limits Normal Wi thin Normal Limits [facility] Comment on above: Performed By: #### I NFLUAB #### [facility] [id number] Ambrosio Ramirez XR CHEST 2 Von 01-27-2022 XR CHEST 2 V EXAMINATION: XR CHEST 2 V HISTORY: Fever COMPARISON: No relevant comparison available. TECHNIQUE: PA and lateral FINDINGS: LUNGS: No significant pulmonary parenchymal abnormalities. VASCULATURE: No increased pulmonary vasculature. PLEURA: No pneumothorax, effusion, or pleural thickening. CARDIAC: No cardiomegaly or cardiac silhouette abnormality. MEDIASTINUM: No visible mass or adenopathy. BONES: No fracture or visible bone lesion. Cervical fusion hardware OTHER: Negative. IMPRESSION: No acute disease. Electronically authenticated by: GEORGE ROWE Date: 2022-01-27 14:42 Normal [facility] RPR QUANTon 08-26-2021 Rapid Plasma Reagin, Quant Non-Reactive Normal NonRea<1:1 [facility] Comment on above: Result Comment: Plea se Note: This test does not meet current guidelines for screening and diagnosis of syphilis. This test is intended for following treatment response in patients being treated for syphilis infection. To screen for syphilis infection, a reflex cascade that includes both RPR and a treponema-specific assay should be utilized, such as Treponema pallidum (Syphilis) Screening Bosque (579930) or Rapid Plasma Reagin (RPR) Test With Reflex to Quantitative RPR and Confirmatory Treponema pallidum Antibodies (030889). Performed By: #### R PRQ #### [facility] [address] [place] [address] Dr. Ambrosio Ramirez HEP B SURFACE ANTIGEN SCREEN on 08-24-2021 HBsAg Screen Negative Normal Negative [facility] Comment on above: Performed By: #### H BSANS #### [facility] [address] [place] [address] Dr. Ambrosio Ramirez HEPATITIS C ANTIBODYon 08-24 Hep C Virus Ab <0.1 Normal 0.0-0.9 [facility] Comment on above: Result Comment: Nega tive: < 0.8 Indeterminate: 0.8 - 0.9 Positive: > 0.9 . HCV antibody alone does not differentiate between previous resolved infection and active infection. The CDC and current clinical guidelines recommend that a positive HCV antibody result be followed up with an HCV RNA test to support the diagnosis of acute HCV infection. [facility] offers Hepatitis C Virus (HCV) RNA, Diagnosis, JAYY (404880) and Hepatitis C Virus (HCV) Antibody with reflex to Quantitative Real-time PCR (098979). Performed By: #### H CV #### [facility] [address] [place] [address] Dr. Ambrosio Ramirez INSULINon 08-23-2021 Insulin 5.0 uIU/mL Normal 2.6-24.9 [facility] Comment on above: Performed By: #### A 1C #### [facility] [address] [place] [address] Dr. Ambrosio Ramirez OCC BLD IMMUNO SCREENon OCCULT BLOOD Negative Normal NEGATIVE [facility] Comment on above: Performed By: #### O BSCRN #### [facility] [address] [place] [address] Dr. Ambrosio Ramirez CBC AUTO DIFFon 08-22-2021 BASO # 0.1 103/ul Normal 0.0-0.1 [facility] Comment on above: Performed By: #### O BSCRN #### [facility] [address] [place] [address] Dr. Ambrosio Ramirez Basophils/100 WBC (Bld) 1.0 % Normal 0.2-2.0 [facility] Comment on above: Performed By: #### O BSCRN #### [facility] [address] [place] [address] Dr. Ambrosio Ramirez EO # 0.1 103/ul Normal 0.0-0.7 [facility] Comment on above: Performed By: #### O BSCRN #### [facility] [address] [place] [address] Dr. Ambrosio Ramirez Eosinophils/100 WBC (Bld) 1.8 % Normal 0.9-7.0 [facility] Comment on above: Performed By: #### O BSCRN #### [facility] [address] [place] [address] Dr. Ambrosio Ramirez Erythrocyte distribution width (RBC) [Ratio] 11.9 % Normal 11.0-15.0 [facility] Comment on above: Performed By: #### O BSCRN #### [facility] [address] [place] [address] Dr. Ambrosio Ramirez Hematocrit (Bld) [Volume fraction] 48.6 % Critically high 36.0-48.0 [facility] Comment on above: Performed By: #### O BSCRN #### [facility] [address] [place] [address] Dr. Ambrosio Ramirez Hemoglobin (Bld) [Mass/Vol] 16.3 g/dL Critically high 12.0-16.0 [facility] Comment on above: Performed By: #### O BSCRN #### [facility] [address] [place] [address] Dr. Ambrosio Ramirez IG # 0.03 10e3/ul Normal 0.00-0.03 [facility] Comment on above: Performed By: #### O BSCRN #### [facility] [address] [place] [address] Dr. Ambrosio Ramirez IG % 0.6 % Critically high 0.0-0.5 [facility] Comment on above: Performed By: #### O BSCRN #### [facility] [address] [place] [address] Dr. Ambrosio Ramirez LYMPH # 2.4 103/ul Normal 1.2-3.8 [facility] Comment on above: Performed By: #### O BSCRN #### [facility] [address] [place] [address] Dr. Ambrosio Ramirez Lymphocytes/100 WBC (Bld) 46.9 % Normal 20.5-60.0 [facility] Comment on above: Performed By: #### O BSCRN #### [facility] [address] [place] [address] Dr. Ambrosio Ramirez MANUAL DIFF REQ NO Normal [facility] Comment on above: Performed By: #### O BSCRN #### [facility] [address] [place] [address] Dr. Ambrosio Ramirez MCH (RBC) [Entitic mass] 34.9 pg Critically high 26.7-34.0 [facility] Comment on above: Performed By: #### O BSCRN #### [facility] [address] [place] [address] Dr. Ambrosio Ramirez MCHC (RBC) [Mass/Vol] 33.5 g/dL Normal 29.9-35.2 [facility] Comment on above: Performed By: #### O BSCRN #### [facility] [address] [place] [address] Dr. Ambrosio Ramirez MCV (RBC) [Entitic vol] 104.1 fL Critically high 81.0-99.0 [facility] Comment on above: Performed By: #### O BSCRN #### [facility] [address] [place] [address] Dr. Ambrosio Ramirez MONO # 0.4 103/ul Normal 0.3-0.8 [facility] Comment on above: Performed By: #### O BSCRN #### [facility] [address] [place] [address] Dr. Ambrosio Ramirez Monocytes/100 WBC (Bld) 8.2 % Normal 1.7-12.0 [facility] Comment on above: Performed By: #### O BSCRN #### [facility] [address] [place] [address] Dr. Ambrosio Ramirez NEUT # 2.1 103/ul Normal 1.4-6.5 [facility] Comment on above: Performed By: #### O BSCRN #### [facility] [address] [place] [address] Dr. Ambrosio Ramirez Neutrophils/100 WBC (Bld) 41.5 % Critically low 43.0-75.0 [facility] Comment on above: Performed By: #### O BSCRN #### [facility] [address] [address] [address] Ambrosio Ramirez Platelet mean volume (Bld) [Entitic vol] 9.3 fL Critically low 9.5-13.5 [facility] Comment on above: Performed By: #### O BSCRN #### [facility] [address] [address] [address] Ambrosio Ramirez PLT 210 103/ul Normal 150-450 [facility] Comment on above: Performed By: #### O BSCRN #### [facility] [address] [place] [address] Dr. Ambrosio Ramirez RBC 4.67 106/ul Normal 4.20-5.40 [facility] Comment on above: Performed By: #### O BSCRN #### [facility] [address] [place] [address] Dr. Ambrosio Ramirez WBC 5.0 103/ul Normal 4.0-11.0 [facility] Comment on above: Performed By: #### O BSCRN #### [facility] [address] [address] [address] Ambrosio Ramirez FREE THYROXINE INDEX T7on FTI 2.72 Normal 1.30-4.50 [facility] Comment on above: Performed By: #### O BSCRN #### [facility] [address] [place] [address] Dr. Ambrosio Ramirez T3U 32.0 % Normal 30.0-39.0 [facility] Comment on above: Performed By: #### O BSCRN #### [facility] [address] [address] [address] Ambrosio Ramirez T4 [Mass/Vol] 8.50 ug/dL Normal 4.80-13.90 [facility] Comment on above: Performed By: #### O BSCRN #### [facility] [address] [place] [address] Dr. Ambrosio Ramirez GLYCOHEMOGLOBIN A1Con 2021 ADA RECOMMENDATION SEE BELOW Normal [facility] Comment on above: Result Comment: ADA RECOMMENDED LIMIT 4.0 - 6.0 ADA THERAPEUTIC TARGET < 7.0 ACTION SUGGESTED > 7.0 Performed By: #### A 1C #### [facility] [address] [place] [address] Dr. Ambrosio Ramirez Glucose [Mass/Vol] 108 mg/dL Normal [facility] Comment on above: Performed By: #### A 1C #### [facility] [address] [place] [address] Dr. Ambrosio Ramirez HbA1c (Bld) [Mass fraction] 5.4 % Normal 4.5-6.2 [facility] Comment on above: Performed By: #### A 1C #### [facility] [address] [place] [address] Dr. Ambrosio Ramirez HIV 1/2 RAPID (EXPOSURE ONLY )on 08-22-2021 HIV AB Negative Normal [facility] Comment on above: Performed By: #### A 1C #### [facility] [address] [place] [address] Dr. Ambrosio Ramirez HIV AG Negative Normal [facility] Comment on above: Performed By: #### A 1C #### [facility] [address] [place] [address] Dr. Ambrosio Ramirez INTERNAL CONTROLS Within Normal Limits Normal Wi thin Normal Limits [facility] Comment on above: Performed By: #### A 1C #### [facility] [address] [place] [address] Dr. Ambrosio Ramirez RAPID HIV INFO SEE BELOW Normal [facility] [place] Comment on above: Result Comment: This test is used for the initial screening of the exposure source. Confirmation of all results will be obtained through reference lab testing. Performed By: #### A 1C #### [facility] [address] [place] [address] Dr. Ambrosio Ramirez IRONon 08-22-2021 Iron [Mass/Vol] 137.0 ug/dL Normal 50.0-170.0 [facility] Comment on above: Performed By: #### I HAMLET #### [facility] [address] [place] [address] Dr. Ambrosio Ramirez LIPID PROFILEon 08-22-2021 CHOL-HDL RATIO NORM SEE BELOW Normal [facility] Comment on above: Result Comment: 3.3 - 4.4 LOW RISK 4.4 - 7.1 AVERAGE RISK 7.1 - 11.0 MODERATE RISK >11.0 HIGH RISK Performed By: #### O BSCRN #### [facility] [address] [address] [address] Ambrosio Ramirez Cholesterol [Mass/Vol] 251 mg/dL Critically high <=200 [facility] Comment on above: Performed By: #### O BSCRN #### [facility] [address] [address] [address] Ambrosio Ramirez Cholesterol in HDL [Mass/Vol] 67 mg/dL Critically high 40-60 [facility] Comment on above: Performed By: #### O BSCRN #### [facility] [address] [address] [address] Ambrosio Ramirez Cholesterol in LDL [Mass/Vol] 154.8 mg/dL Normal [facility] Comment on above: Performed By: #### O BSCRN #### [facility] [address] [address] [address] Ambrosio Ramirez Cholesterol.total/Cho lesterol in HDL [Mass ratio] 3.7 {ratio} Normal [facility] Comment on above: Performed By: #### O BSCRN #### [facility] [address] [address] [address] Ambrosio Ramirez HDL NORMAL > or = 60 mg/dl - LOW CARDIOVASCULAR RISK <40 mg/dl - HIGH CARDIOVASCULAR RISK Normal [facility] Comment on above: Performed By: #### O BSCRN #### [facility] [address] [id number] Ambrosio Ramirez LDL CALC NORMAL SEE BELOW Normal [facility] Comment on above: Result Comment: <100 mg/dl OPTIMAL 100 - 129 mg/dl NEAR OR ABOVE OPTIMAL 130 - 159 mg/dl BORDERLINE HIGH 160 - 189 mg/dl HIGH >190 mg/dl VERY HIGH Performed By: #### O BSCRN #### [facility] [address] [address] [address] Ambrosio Ramirez Triglyceride [Mass/Vol] 146 mg/dL Normal <=150 [facility] Comment on above: Performed By: #### O BSCRN #### [facility] [address] [place] [address] Dr. Ambrosio Ramirez VLDL CALC 29.2 mg/dL Normal [facility] Comment on above: Performed By: #### O BSCRN #### [facility] [address] [address] [address] Ambrosio Ramirez PROF 14(COMP METB)on 022 Albumin [Mass/Vol] 4.3 g/dL Normal 3.4-5.0 [facility] Comment on above: Performed By: #### O BSCRN #### [facility] [address] [place] [address] Dr. Ambrosio Ramirez Albumin/Globulin [Mass ratio] 1.2 {ratio} Normal [facility] Comment on above: Performed By: #### O BSCRN #### [facility] [address] [place] [address] Dr. Ambrosio Ramirez ALP [Catalytic activity/Vol] 57 U/L Normal 46-116 [facility] Comment on above: Performed By: #### O BSCRN #### [facility] [address] [place] [address] Dr. Ambrosio Ramirez ALT [Catalytic activity/Vol] 56 U/L Normal 14-59 [facility] Comment on above: Performed By: #### O BSCRN #### [facility] [address] [place] [address] Dr. Ambrosio Ramirez Anion gap [Moles/Vol] 11.5 mmol/L Normal [facility] Comment on above: Performed By: #### O BSCRN #### [facility] [address] [place] [address] Dr. Ambrosio Ramirez AST [Catalytic activity/Vol] 75 U/L Critically high 15-37 [facility] Comment on above: Performed By: #### O BSCRN #### [facility] [address] [place] [address] Dr. Ambrosio Ramirez Bilirubin [Mass/Vol] 0.4 mg/dL Normal 0.2-1.0 [facility] Comment on above: Performed By: #### O BSCRN #### [facility] [address] [place] [address] Dr. Ambrosio Ramirez Calcium [Mass/Vol] 8.7 mg/dL Normal 8.5-10.1 [facility] Comment on above: Performed By: #### O BSCRN #### [facility] [address] [place] [address] Dr. Ambrosio Ramirez Chloride [Moles/Vol] 105 mmol/L Normal 98-107 [facility] Comment on above: Performed By: #### O BSCRN #### [facility] [address] [place] [address] Dr. Ambrosio Ramirez CO2 [Moles/Vol] 30.3 mmol/L Normal 21.0-32.0 [facility] Comment on above: Performed By: #### O BSCRN #### [facility] [address] [place] [address] Dr. Ambrosio Ramirez Creatinine [Mass/Vol] 0.67 mg/dL Normal 0.55-1.02 [facility] Comment on above: Performed By: #### O BSCRN #### [facility] [address] [place] [address] Dr. Ambrosio Ramirez EGFR-AF GREEK >60 Normal >=60 [facility] Comment on above: Performed By: #### O BSCRN #### [facility] [address] [place] [address] Dr. Ambrosio Ramirez EGFR-NON AF GREEK >60 Normal >=60 [facility] Comment on above: Performed By: #### O BSCRN #### [facility] [address] [place] [address] Dr. Ambrosio Ramirez Globulin (S) [Mass/Vol] 3.7 g/dL Normal [facility] Comment on above: Performed By: #### O BSCRN #### [facility] [address] [place] [address] Dr. Ambrosio Ramirez Glucose [Mass/Vol] 93 mg/dL Normal 74-106 [facility] Comment on above: Performed By: #### O BSCRN #### [facility] [address] [address] [address] Ambrosio Ramirez Potassium [Moles/Vol] 4.8 mmol/L Normal 3.5-5.1 [facility] Comment on above: Performed By: #### O BSCRN #### [facility] [address] [address] [address] Ambrosio Ramirez Protein [Mass/Vol] 8.0 g/dL Normal 6.4-8.2 [facility] Comment on above: Performed By: #### O BSCRN #### [facility] [address] [place] [address] Dr. Ambrosio Ramirez Sodium [Moles/Vol] 142 mmol/L Normal 136-145 [facility] Comment on above: Performed By: #### O BSCRN #### [facility] [address] [place] [address] Dr. Ambrosio Ramirez Urea nitrogen [Mass/Vol] 8.0 mg/dL Normal 7.0-18.0 [facility] Comment on above: Performed By: #### O BSCRN #### [facility] [address] [place] [address] Dr. Ambrosio Ramirez Urea nitrogen/Creatinine [Mass ratio] 11.9 mg/mg Normal [facility] Comment on above: Performed By: #### O BSCRN #### [facility] [address] [place] [address] Dr. Ambrosio Ramirez TSHon 08-22-2021 TSH 2.117 uIU/mL Normal 0.358-3.740 [facility] Comment on above: Performed By: #### O BSCRN #### [facility] [address] [place] [address] Dr. Ambrosio Ramirez XR CSPINE MIN 4 VIEWSon 07-26 XR CSPINE MIN 4 VIEWS EXAMINATION: XR TSPINE 3 VIEWS, XR CSPINE MIN 4 VIEWS HISTORY: Pain in thoracic spine COMPARISON: No relevant comparison available. FINDINGS: BONES: Reversal of normal cervical lordosis. Anterior fusion C4-C7. Posterior decompression and transpedicular fusion through C7. No mechanical failure. Mild to moderate degenerative changes of the cervical and thoracic spine. Mild dextro curvature of the thoracic spine. DISC SPACES: Interbody fusion C3-4 C4-5 and C5-C6 PARASPINOUS: Negative. No paraspinous abnormality is seen. OTHER: Negative. IMPRESSION: Cervical fusion hardware with no mechanical failure [id number] degenerative changes of the cervical thoracic spine Electronically authenticated by: GEORGE ROWE Date: 2021-08-22 21:07 Normal [facility] Vital Signs Date Time Vital Sign Value Performing Clinician Facility 05-09-2022 10:14-0400 Diastolic blood pressure 85 mm[Hg] [employer] Ama Edwards Work Phone: [facility] 05-09-2022 10:14-0400 Heart rate 99 /min [employer]GER[employer] Ama Edwards Work Phone: [facility] 05-09-2022 10:14-0400 Respiratory rate 18 /min [employer]NAGER[employer] Ama Edwards Work Phone: [facility] 05-09-2022 10:14-0400 SaO2% (BldA) [Mass fraction] 99 % [employer] MANAGER[employer] Ama Edwards Work Phone: [facility] 05-09-2022 10:14-0400 Systolic blood pressure 124 mm[Hg] [employer] MANAGER[employer]C Ama Edwards Work Phone: [facility] 05-09-2022 08:04-0400 Body height 180.34 cm [employer] MANAGER[employer]C Ama Edwards Work Phone: [facility] 05-09-2022 08:04-0400 Body weight 58.96 kg [employer] MANAGER[employer] Ama Edwards Work Phone: [facility] 05-01-2022 11:15-0500 Body height [employer] Other [employer] Other 05-01-2022 11:15-0500 Body mass index (BMI) [Ratio] 18.13 kg/m2 [employer] Other [facility] Other 05-01-2022 11:15-0500 Body weight 58.97 kg Imad Asaad Other [facility] Other 05-01-2022 11:15-0500 Diastolic blood pressure 102 mm[Hg] Imad Asaad Other [facility] Other 05-01-2022 11:15-0500 Respiratory rate 16 /min Imad Asaad Other [facility] Other 05-01-2022 11:15-0500 Systolic blood pressure 158 mm[Hg] Imad Asaad Other [facility] Other Encounters Encounter Date Encounter Type Care Provider Facility Start: 12-15-2022 End: 12-16-2022 ambulatory Manuel Reynaga MD Facility: [facility] Start: 11-17-2022 End: 11-18-2022 ambulatory Manuel Reynaga MD Facility: [facility] Start: 11-10-2022 End: 11-11-2022 ambulatory Manuel Reynaga MD Facility: [facility] Start: 05-09-2022 End: 05-09-2022 ambulatory Ama Edwards Facility:[facility] Start: 05-09-2022 End: 05-09-2022 Admission to same day surgery center [employer] MANAGER[employer]C Ama Edwards Work Phone: [facility] Work Phone: Start: 05-09-2022 End: 05-09-2022 ambulatory [employer] MANAGER[employer]C Ama Edwards Work Phone: [facility] Work Phone: Start: 05-02-2022 End: 05-02-2022 ambulatory Imad Asaad Other [facility] Other Start: 05-02-2022 Telephone encounter Imad Asaad [facility] Start: 05-01-2022 End: 05-01-2022 ambulatory Imad Asaad Other [facility] Other Start: 05-01-2022 Office consultation new/estab patient 60 min Imad Asaad [facility] Start: 03-25-2022 End: 03-26-2022 ambulatory AMA EDWARDS Facility:[facility] Start: 03-12-2022 End: 03-13-2022 ambulatory AMA EDWARDS Facility:[facility] Start: 01-27-2022 End: 01-28-[address] GEORGE ROWE Facility:[facility] Start: 09-12-2021 ambulatory AMA EDWARDS Facility: [facility] Start: 08-23-2021 End: 08-23-2021 ambulatory AMA EDWARDS Facility:[facility] Start: 08-23-2021 End: 08-23-2021 ambulatory LOLIS BOB Facility:[facility] Start: 08-22-2021 End: 08-23-2021 ambulatory AMA EDWARDS Facility:[facility] Procedures Date Procedure Procedure Detail Performing Clinician Start: 05-09-2022 Esophagogastroduodenoscopy [employer] Ama patel Work Phone: Screening for malign ant neoplasm of colon Imad Asaad Other Plan of Treatment Date Care Activity Detail Author Start: 05-09-2022 [facility] Patient Education Colon Polyps H emorrhoids (DC) Diverticulosis (DC) Gastritis (DC) [facility] Work Phone: Payers Date Payer Category Payer Self-pay 2022 Unknown 1960 Unknown [id number] 2.16.84 [id number] 1960 Unknown [id number] 2.16.84 [id number] 1960 Unknown [id number] 2.16.84 [id number] 1960 Unknown [id number] 2.16.84 [id number] 1960 Unknown [id number] 2.16.84 [id number] 1960 Unknown [id number] 2.16.84 [id number] 1960 Unknown [id number] 2.16.84 [id number] 1960 Unknown [id number] 2.16. [id number] 1960 Unknown [id number] 2.16. [id number] 1960 Unknown [id number] 2.16. [id number] 1957 Medicare [id number] 21 [id number] 1959 Unknown [id number] 1959 Unknown [id number] 1957 Unknown [id number] Unknown [id number] 2.16.8 [id number] Social History Date Type Detail Facility Start: 05-09-2022 Tobacco smoking status IAIS Smoker (finding) [facility] Start: 1960 Sex Assigned At Female F [facility] Sex Assigned At Sex Assigned At Bir th [facility] Other Goals Date Patient Goal Desired Activity /State Procedure note 05-09-2022 Note Date & Type Note Facility 05-09-2022 Procedure note [facility] Evaluation note 05-01-2022 Note Date & Type Note Facility 05-01-2022 Evaluation note Encounter Date Diagnosis Assessment Notes Apr, Dysphagia (ICD-10 - R13.10) Apr, Weight loss (ICD-10 - R63.4) Apr, Colon cancer screening (ICD-10 - Z12.11) [facility] Other Evaluation note Note Date & Type Note Facility Evaluation note No assessment information jesse navas [facility] Work Phone: Evaluation note Note Date & Type Note Facility Evaluation note No Information [facility] Other History general Narrative - Reported Note Date & Type Note Facility History general Narrative - Reported Type Medical History Anxiety/Depression Surgical History Neck surgery Surgical History Tonsillectomy Hospitalization History See above [facility] Other Hospital Discharge instructions Note Date & Type Note Facility Hospital Discharge instructions Additional Instructions DISCHARGE INSTRUCTIONS FOR UPPER ENDOSCOPY WHAT TO EXPECT: - You may feel full, gassy or cramping after your procedure. In some cases, this may be from a few hours to a day. Walking may help relieve the discomfort. - Your throat may feel sore today from the scope that the doctor passed through your throat to visualize your stomach. Take a throat lozenge or suck on ice to ease the discomfort. - You may notice some streaks of blood in your sputum if the doctor has taken a biopsy. - You should begin to recover from anesthesia within 1 hour of the procedure, however may feel groggy for the next 24 hours. DO's AND DON'Ts: - Call your doctor right away if you have a hard abdomen, severe pain, vomiting or if you cough up large amounts of blood. - Call your doctor if you develop any rashes, hives or difficulty breathing. - If you take 81 mg aspirin for your heart it is safe to resume this medication. - If you take other blood thinner medications your doctor will instruct you when these can safely be resumed. - Do NOT drive for 24 hours. - Do NOT operate machinery such as power tools, lawn mowers, snow blowers, sewing machines, etc. for 24 hours. - Avoid alcoholic beverages and drugs for allergies, nerves, or sleep. - Do NOT stay alone. Do NOT leave your child unattended. - Do NOT make important personal or business decisions or sign any legal documents. - Eat solid foods and drink liquids in smaller amounts than usual until normal appetite returns. If you should experience an upset stomach, liquids high in sugar content (soda, Abraham-Aid, non-acid juices) are recommended. - Do NOT smoke. - Do take it easy today. You need not stay in bed, but avoid strenuous activities such as jogging or working out. DISCHARGE INSTRUCTIONS FOR COLONOSCOPY WHAT TO EXPECT: - You may feel full, gassy or cramping after your procedure. In some cases, this may be from a few hours to a day. Walking may help relieve the discomfort. - If you have polyp(s) removed you may note some minor bloody discharge after your first bowel movements. - You should begin to recover from anesthesia within 1 hour of the procedure, however may feel groggy for the next 24 hours. DO's AND DON'Ts: - Call your doctor right away if you have a hard abdomen, sever pain, are passing lots of bright red blood or clots. - Call your doctor if you develop any rashes, hives or difficulty breathing. - Let your doctor know if you have not had a bowel movement by 3 days after your procedure. - If you take 81 mg aspirin for your heart it is safe to resume this medication. - If you take other blood thinner medications your doctor will instruct you when these can safely be resumed. - Do NOT drive for 24 hours. - Do NOT operate machinery such as power tools, lawn mowers, snow blowers, sewing machines, etc. for 24 hours. - Avoid alcoholic beverages and drugs for allergies, nerves, or sleep. - Do NOT stay alone. Do NOT leave your child unattended. - Do NOT make important personal or business decisions or sign any legal documents. - Eat solid foods and drink liquids in smaller amounts than usual until normal appetite returns. If you should experience an upset stomach, liquids high in sugar content (soda, Abraham-Aid, non-acid juices) are recommended. - You can resume normal activities tomorrow. FOLLOW UP & RECOMMENDATIONS: -Start omeprazole 40 mg daily 30 minutes for breakfast. -Repeat colonoscopy in 3 years pending polyp pathology -Follow up with PCP. - Office number [phone]. [facility] Work Phone: Chief Complaint and Reason for Visit Chief Complaint Dysphagia, Weight Lo ss, Screening Family History No Family History Records Found Relationship Condition Age at Onset Recorded Date/T abelino Not Specified Dementia Unknown sister Cerebral aneurysm Unknown Lupus Unknown Malignant neoplasm of breast Unknown Summary Purpose Advance Directives No Advanced Directives Records FoundNo Advanced Directives Records FoundNo Advanced Directives Records Found Additional Source Comments Care Teams (unrecognized sec tion and content) Team Status: Active Member Role Status Dates JIE Watts Primary Care Provider Active Team Status: Inactive Member Role Status Dates Nesha Bryant MD Attending Provider Active JIE Watts Primary Care Provider Active REASON FOR VISIT (unrecogniz ed section and content) PATIENT IS HERE AT THE REQUE [facility] OF [facility] EDWRADS FOR DIARRHEA, WEIGHT LOSS AND DYSPHAGIAClinical INFORMATION SOURCE (unrecogn ized section and content) DATE CREATED AUTHOR 05/20/2022 [facility] DATE CREATED AUTHOR AUTHOR'S ORGANIZ ATION 07/02/2022 [facility] DATE CREATED AUTHOR AUTHOR'S ORGANIZ ATION 12/23/2022 [facility] FOR RECORDS PERTAINING TO PATIENTS WHO ARE OR HAVE BEEN ENROLLED IN A CHEMICAL DEPENDENCY/SUBSTANCEABUSE PROGRAM, SOME INFORMATION MAY BE OMITTED. This clinical summary was aggregated from multiple sources. Caution should be exercised in using it in the provision of clinical care. This summary normalizes information from multiple sources, and as a consequence, information in this document may materially change the coding, format and clinical context of patient data. In addition, data may be omitted in some cases. CLINICAL DECISIONS SHOULD BE BASED ON THE PRIMARY CLINICAL RECORDS. [facility]. provides no warranty or guarantee of the accuracy or completeness of information in this document.
--- NOTE | 2023-07-06 13:44 | P.CN_ITS ---
Consult Note: HPI Data of Consult Patient: known to practice within the last 3 years Consult date: 07/06/23 Requesting Physician: Manuel Reynaga MD Primary Care Provider: SOLITARIO EDWARDS Consult Narrative Reason for consult: neck, low back pain Narrative: 62yof who presents for assessment. notes worsening neck pain, low back pain. fused from C4-7. previously discussed proceeding with c2-3, c3-4 rfa, but patient then left to [place] for winter and now re-establishing. lumbar xr reviewed, which shows grade 2 listhesis of l4 on 5. continues in provider directed home exercise program >6 weeks, without benefit. uses robaxin without benefit. uses xanax prn. cc:: CC: Manuel Reynaga MD Review of Systems ROS Status of ROS 10 or more systems reviewed and unremark able except as noted in history and below PFSH PFSH Medical History Upper back pain ?M54.9 - Dorsalgia, unspecified (ICD-10) Neck pain ?M54.2 - Cervicalgia (ICD-10) Anxiety ?F41.9 - Anxiety disorder, unspecified (ICD-10) Smoker ?F17.200 - Nicotine dependence, unspecified, uncomplicated (ICD-10) Surgical History H/O cervical spine surgery ?Z98.890 - Other specified postprocedural states (ICD-10) Meds Home Medications and Allergies Home Medications ?Medication ?Instructions ?Recorded ?Confirmed ?Type alprazolam 0.25 mg tablet (Xanax) 0.25 mg PO DAILY PRN anxiety 11/10/22 12/15/22 History escitalopram oxalate 10 mg tablet 10 mg PO DAILY 11/10/22 12/15/22 History (Lexapro) methocarbamol 750 mg tablet 750 mg PO TID 11/10/22 12/15/22 History celecoxib 200 mg capsule (Celebrex) 200 mg PO BID 12/26/22 12/26/22 History cyclobenzaprine 10 mg tablet 10 mg PO TID PRN muscle spasm #90 07/06/23 Rx tabs etodolac 400 mg tablet (Lodine) 400 mg PO BID #60 tabs 07/06/23 Rx Allergies Allergy/AdvReac Type Severity Reaction Status Date / Time No Known Drug Allergies Allergy Verified 12/15/22 10:25 Exam Narrative Exam Narrative: Psych-alert and oriented x 3.? Attentive and appropriate, constitutionally normal, displays normal mood and affect per situation.? There are no obvious deficits in memory, reasoning, or intellect.? Skin-no obvious rashes, bruising, or erythema noted to the patient's area of pain. Extremities-upper extremities are warm with minimal edema and palpable pulses. Cervical- tenderness to palpation noted in the cervical spine and paraspinal musculature.? Pain is elicited with extension, and lateral rotation of the cervical spine.? Range of motion is slightly diminished due to pain. Facet loading maneuvers are positive bilaterally Lumbar-tenderness to palpation noted in the lumbar spine and paraspinal musculature. Pain is not elicited with flexion, extension, and lateral rotation of the lumbar spine. Range of motion is not diminished with these motions. Facet loading maneuvers are negative.? Strength-noted to be unremarkable with the exception of decreased strength rated at 4 out of 5 in bilateral quadriceps femoris, anterior tibialis. Sensory-no notable sensory deficits in the bilateral lower extremities to touch or pinprick in all dermatomal distributions with the exception to decreased sensation to the bilateral L4, 5 dermatomal distribution.? Coordination remains intact.? Gait remains non-antalgic. Assessment and Plan Assessment and Plan (1) Cervical postlaminectomy syndrome: (2) Cervical spondylosis: (3) Lumbar stenosis with neurogenic claudication: Plan 62yof who presents for assessment. failed conservative measures. imaging reviewed, as noted. given worsening neck pain, will obtain cervical xr to rule out acute pathology. discussed that if xr did not show new findings, would likely benefit from proceeding with cervical rfas. in terms of low back symptoms, given degree of listhesis, will have her obtain lumbar mri without contrast and be evaluated by spine surgeon. she is in agreement. meds reviewed. will trial flexeril 10mg tid prn and lodine 400mg bid prn. follow up in 1-2 weeks.
== END 2023-07-06 12:44 | disposition home or self-care (01) ==
PROVIDERS: PCP Nurse Practitioner Family; Visit Provider Anesthesiology
DX: M54.2 Cervicalgia (principal); M96.1 Postlaminectomy syndrome, not elsewhere classified; M47.812 Spondylosis without myelopathy or radiculopathy, cervical region; M48.062 Spinal stenosis, lumbar region with neurogenic claudication
CPT/HCPCS: 72050; G0463

== ENCOUNTER 2023-07-06 13:27 | Outpatient (OUT) | payer MEDICARE, OTHER, MEDICAID, SELFPAY ==
--- NOTE | 2023-07-06 13:33 | XR_ITS ---
The [address] [address] Patient Name: CARLA ABDI MRN: [id number] date: 1960 Sex: F Assigned Patient Location: [facility] Current Patient Location: Accession/Order Number: [id number] Exam Date: 07/06/2023 13:45 Report Date: 07/07/2023 06:46 At the request of: OZZIE REHMAN Procedure: XR cervical spine 5V EXAMINATION: XR cervical spine 5V HISTORY: Neck Pain , acute on chronic COMPARISON: XR cervical spine 11/07/2022 FINDINGS: BONES: Anterior posterior mechanical fusion of C4-C7; no hardware fracture or loosening. No bone fracture or spondylolisthesis. Mild-moderate degenerative facet arthropathy C3-4 through C6-7. DISC SPACES: Mild narrowing C2-3 and C3-4. Intervertebral disc spacers at C4-5, C5-6, C6-7. PARASPINOUS: Negative. No paraspinous abnormality is seen. OTHER: Negative. XR/XR cervical spine 5V IMPRESSION: 1. Stable surgical changes and moderate degenerative changes. 2. No appreciable acute abnormality or significant change. Electronically authenticated by: DENNY RINCON Date: 07/07/2023 06:46
== END 2023-07-06 13:28 | disposition home or self-care (01) ==
LOC: RAD 13:29
PROVIDERS: PCP Nurse Practitioner Family; Visit Provider Anesthesiology
DX: M54.2 Cervicalgia (principal)
CPT/HCPCS: 72050

== ENCOUNTER 2023-07-09 08:26 | Outpatient (OUT) | payer MEDICARE, OTHER, MEDICAID, SELFPAY ==
--- NOTE | 2023-07-09 08:40 | MR_ITS ---
The [address] [address] Patient Name: CARLA ABDI MRN: [employer]:[id number] date: 1960 Sex: F Assigned Patient Location: MRI Current Patient Location: MRI Accession/Order Number: [id number] Exam Date: 07/09/2023 08:47 Report Date: 07/09/2023 09:44 At the request of: OZZIE REHMAN Procedure: MR lumbar spine wo con MR lumbar spine wo con, 07/09/2023 8:47 AM EDT INDICATION: lumbar stenosis COMPARISON: Prior x-ray of the lumbar spine dated 11/11/2022 TECHNIQUE: Multiplanar, multisequential MRI images of lumbar spine were obtained without contrast. FINDINGS: For dictation purposes, the lowest complete disc space in the lumbar spine considered as L5-S1. There is normal physiologic lumbar lordosis. The vertebral height is preserved. The conus medullaris is at the level of L1. No signal abnormality within the visualized spinal cord is noted. No neural foraminal narrowing or canal stenoses at the level of T12-L1 and L1-L2 is noted. At the level of L2-L3, there are disc bulge with no neuroforaminal narrowing and no canal stenosis. At the level of L3-4, there are disc bulge with no neuroforaminal narrowing and no canal stenosis. At the level of L4-5, there are grade 1-2 anterolisthesis uncovering disc with severe bilateral neuroforaminal narrowing and moderate to severe canal stenosis. Type I endplate changes at this level are noted. At the level of L5-S1, there are disc bulge with no neuroforaminal narrowing and no canal stenosis. The paraspinal muscles are unremarkable. MR/MR lumbar spine wo con IMPRESSION: Moderate degenerative changes of lumbar spine at the level of L4-L5. Electronically authenticated by: RADHA BOWDEN Date: 07/09/2023 09:44
--- OUTSIDE RECORDS SUMMARY | 2023-07-09 08:47 | XMS_ITS | CCD ---
Author Organization [facility] Care Team Providers Care Box Lining Machine Feeder Name Role Phone MD Nesha Bryant Attending Provider JIE Edwards Primary Care Provider 1( [phone] Asadelfino, Imad Unavailable Ama Edwards Primary Care [...] 30 days Apr, Active polyethylene glycol 3350 [id number] mg / potassium chloride 2970 mg / sodium bicarbonate 6740 mg / sodium chloride 5860 mg / sodium sulfate 33790 mg powder for oral solution (2 sources) [...] Test Name Value Interpretation Reference Range Facility [facility] 05-09-2022 L Specimen: [id number] Received: 05/09/22 Status: EDUARD Zaragoza Num: [id number] Spec Type: Surgical Subm Dr: Nesha Bryant MD Tissues: A Gastric Biopsy (GASTRIC) B Esophagus Biopsy (DISTAL ESOPHAGUS) C Esophagus Biopsy (PROXIMAL ESOPHAGUS) D Colon Biopsy (CECAL POLYP) E Colon Biopsy (SIGMOID POLYP) F Colon Biopsy (RECTAL POLYPS X3) Procedures: , Gross/Micro L4/6 Age/ Patient Sex Location Account Attending Physician Nancy Joyce 61/F [id number] Nesha Bryant MD SPEC NUM: [id number] RECD: 05/09/22 STATUS: EDUARD ZARAGOZA NUM: [id number] KATY: 05/09/22- SUBM DR: Nesha Bryant MD [...] mucosal fold. - Negative for adenoma/dysplasia. Specimen: [id number] Received: 05/09/22 Status: EDUARD Nik Num: [id number] Spec Type: Surgical Subm Dr: Nesha Bryant MD Tissues: A Gastric Biopsy (GASTRIC) B Esophagus Biopsy (DISTAL ESOPHAGUS) C Esophagus Biopsy (PROXIMAL ESOPHAGUS) D Colon Biopsy (CECAL POLYP) E Colon Biopsy (SIGMOID POLYP) F Colon Biopsy (RECTAL POLYPS X3) Procedures: , Gross/Micro L4/6 Patient: Nancy Joyce [id number] (Continued) Specimen: Received: 05/09/22 (Continued) Pathological Diagnosis (Continued) Signed (signature on file) Carin Oliveros MD 05/12/22 1130 Specimen: Received: 05/09/22 Status: EDUARD Zaragoza Num: [id number] Spec Type: Surgical Subm Dr: Nesha Bryant MD Tissues: A Gastric Biopsy (GASTRIC) B Esophagus Biopsy (DISTAL ESOPHAGUS) C Esophagus Biopsy (PROXIMAL ESOPHAGUS) D Colon Biopsy (CECAL POLYP) E Colon Biopsy (SIGMOID POLYP) F Colon Biopsy (RECTAL POLYPS X3) Procedures: ROSI/Barbara, Gross/Micro L4/6 Patient: Nancy Joyce [id number] (Continued) Specimen: Received: 05/09/22 (Continued) Pathological Diagnosis [...] labeled 1. (more content not included)... Normal [facility] XR MODIFIED BARIUM SWALLOWon 03-25-2022 XR MODIFIED [...] DENNY RINCON Date: 2022-03-25 13:53 Normal [facility] INSULINon 03-13-2022 Insulin 3.9 uIU/mL Normal 2.6-24.[address] [facility] Comment on above: Performed By: #### O BSCRN #### [facility] [address] [address] [address] Ambrosio Ramirez XR CSPINE MIN 4 [...] DENNY RINCON Date: 2022-03-13 08:09 Normal [facility] CBC AUTO DIFFon 03-12-2022 BASO # 0.0 103/ul Normal 0.0-0.[address] [facility] Comment on above: Performed By: #### C BC #### [facility] [address] [address] [address] Ambrosio Ramirez Basophils/100 WBC (Bld) 0.7 % Normal 0.2-2.0 [facility] Comment on above: Performed By: #### C BC #### [facility] [address] [address] [address] Ambrosio Ramirez EO # 0.1 103/ul Normal 0.0-0.7 [facility] Comment on above: Performed By: #### C BC #### [facility] [address] [address] [address] Ambrosio Ramirez Eosinophils/100 WBC (Bld) 0.9 % Normal 0.9-7.0 [facility] Comment on above: Performed By: #### C BC #### [facility] [address] [address] [address] Ambrosio Ramirez Erythrocyte distribution width (RBC) [Ratio] 12.3 % Normal 11.0-15.[address] [facility] Comment on above: Performed By: #### C BC #### [facility] [address] [place] [address] Dr. Ambrosio Ramirez Hematocrit (Bld) [Volume fraction] 46.0 % Normal 36.0-48.[address] [facility] Comment on above: Performed By: #### C BC #### [facility] [address] [place] [address] Dr. Ambrosio Ramirez Hemoglobin (Bld) [Mass/Vol] 15.2 g/dL Normal 12.0-16.[address] [facility] Comment on above: Performed By: #### C BC #### [facility] [address] [place] [address] Dr. Ambrosio Ramirez IG # 0.03 10e3/ul Normal 0.00-0.[address] [facility] Comment on above: Performed By: #### C BC #### [facility] [address] [place] [address] Dr. Ambrosio Ramirez IG % 0.5 % Normal 0.0-0.[address] [facility] Comment on above: Performed By: #### C BC #### [facility] [address] [place] [address] Dr. Ambrosio Ramirez LYMPH # 2.0 103/ul Normal 1.2-3.[address] [facility] Comment on above: Performed By: #### C BC #### [facility] [address] [place] [address] Dr. Ambrosio Ramirez Lymphocytes/100 WBC (Bld) 35.0 % Normal 20.5-60.[address] [facility] Comment on above: Performed By: #### C BC #### [facility] [address] [place] [address] Dr. Ambrosio Ramirez MANUAL DIFF REQ NO Normal [facility] Comment on above: Performed By: #### C BC #### [facility] [address] [place] [address] Dr. Ambrosio Ramirez MCH (RBC) [Entitic mass] 33.8 pg Normal 26.7-34.0 [facility] Comment on above: Performed By: #### C BC #### [facility] [address] [place] [address] Dr. Ambrosio Ramirez MCHC (RBC) [Mass/Vol] 33.0 g/dL Normal 29.9-35.2 [facility] Comment on above: Performed By: #### C BC #### [facility] [address] [place] [address] Dr. Ambrosio Ramirez MCV (RBC) [Entitic vol] 102.2 fL Critically high 81.0-99.[address] [facility] Comment on above: Performed By: #### C BC #### [facility] [address] [place] [address] Dr. Ambrosio Ramirez MONO # 0.4 103/ul Normal 0.3-0.[address] [facility] Comment on above: Performed By: #### C BC #### [facility] [address] [place] [address] Dr. Ambrosio Ramirez Monocytes/100 WBC (Bld) 7.2 % Normal 1.7-12.[address] [facility] Comment on above: Performed By: #### C BC #### [facility] [address] [place] [address] Dr. Ambrosio Ramirez NEUT # 3.2 103/ul Normal 1.4-6.5 [facility] Comment on above: Performed By: #### C BC #### [facility] [address] [place] [address] Dr. Ambrosio Ramirez Neutrophils/100 WBC (Bld) 55.7 % Normal 43.0-75.0 [facility] Comment on above: Performed By: #### C BC #### [facility] [address] [place] [address] Dr. Ambrosio Ramirez Platelet mean volume (Bld) [Entitic vol] 9.1 fL Critically low 9.5-13.5 [facility] Comment on above: Performed By: #### C BC #### [facility] [address] [address] [address] Ambrosio Ramirez PLT 234 103/ul Normal 150-450 [facility] Comment on above: Performed By: #### C BC #### [facility] [address] [address] [address] Ambroiso Ramirez RBC 4.50 106/ul Normal 4.20-5.40 [facility] Comment on above: Performed By: #### C BC #### [facility] [address] [place] [address] Dr. Ambrosio Ramirez WBC 5.7 103/ul Normal 4.0-11.[address] [facility] Comment on above: Performed By: #### C BC #### [facility] [address] [place] [address] Dr. Ambrosio Ramirez FREE THYROXINE INDEX T7on FTI 2.41 Normal 1.30-4.[address] [facility] Comment on above: Performed By: #### A 1C #### [facility] [address] [place] [address] Dr. Ambrosio Ramirez T3U 33.0 % Normal 30.0-39.[address] [facility] Comment on above: Performed By: #### A 1C #### [facility] [address] [place] [address] Dr. Ambrosio Ramirez T4 [Mass/Vol] 7.30 ug/dL Normal 4.80-13.90 [facility] Comment on above: Performed By: #### A 1C #### [facility] [address] [place] [address] Dr. Ambrosio Ramirez GLYCOHEMOGLOBIN A1Con 2022 ADA RECOMMENDATION SEE BELOW Normal [facility] Comment on above: Result Comment: ADA RECOMMENDED LIMIT 4.0 - 6.0 ADA THERAPEUTIC TARGET < 7.0 ACTION SUGGESTED > 7.0 Performed By: #### A 1C #### [facility] [address] [place] [address] Dr. Ambrosio Ramirez Glucose [Mass/Vol] 100 mg/dL Normal [facility] Comment on above: Performed By: #### A 1C #### [facility] [address] [address] [address] Ambrosio Ramirez HbA1c (Bld) [Mass fraction] 5.1 % Normal 4.5-6.[address] [facility] Comment on above: Performed By: #### A 1C #### [facility] [address] [address] [address] Ambrosio Ramirez IRONon 03-12-2022 Iron [Mass/Vol] 148.0 ug/dL Normal 50.0-170.[address] [facility] Comment on above: Performed By: #### O BSCRN #### [facility] [address] [place] [address] Dr. Ambrosio Ramirez LIPID PROFILEon 03-12-2022 CHOL-HDL RATIO NORM SEE BELOW Normal [facility] Comment on above: Result Comment: 3.3 - 4.4 LOW RISK 4.4 - 7.1 AVERAGE RISK 7.1 - 11.0 MODERATE RISK >11.0 HIGH RISK Performed By: #### A 1C #### [facility] [address] [place] [address] Dr. Ambrosio Ramirez Cholesterol [Mass/Vol] 234 mg/dL Critically high <=[address] [facility] Comment on above: Performed By: #### A 1C #### [facility] [address] [place] [address] Dr. Ambrosio Ramirez Cholesterol in HDL [Mass/Vol] 71 mg/dL Critically high 40-[address] [facility] Comment on above: Performed By: #### A 1C #### [facility] [address] [address] [address] Ambrosio Ramirez Cholesterol in LDL [Mass/Vol] 132.4 mg/dL Normal [facility] Comment on above: Performed By: #### A 1C #### [facility] [address] [place] [address] Dr. Ambrosio Ramirez Cholesterol.total/Cho lesterol in HDL [Mass ratio] 3.3 {ratio} Normal [facility] Comment on above: Performed By: #### A 1C #### [facility] [address] [place] [address] Dr. Ambrosio Ramirez HDL NORMAL > or = 60 mg/dl - LOW CARDIOVASCULAR RISK <40 mg/dl - HIGH CARDIOVASCULAR RISK Normal [facility] Comment on above: Performed By: #### A 1C #### [facility] [address] [address] [address] Ambrosio Ramirez LDL CALC NORMAL SEE BELOW Normal [facility] Comment on above: Result Comment: <100 mg/dl OPTIMAL 100 - 129 mg/dl NEAR OR ABOVE OPTIMAL 130 - 159 mg/dl BORDERLINE HIGH 160 - 189 mg/dl HIGH >190 mg/dl VERY HIGH Performed By: #### A 1C #### [facility] [address] [address] [address] Ambrosio Ramirez Triglyceride [Mass/Vol] 153 mg/dL Critically high <=[address] [facility] Comment on above: Performed By: #### A 1C #### [facility] [address] [address] [address] Ambrosio Ramirez VLDL CALC 30.6 mg/dL Normal [facility] Comment on above: Performed By: #### A 1C #### [facility] [address] [address] [address] Ambrosio Ramirez PROF 14(COMP METB)on 023 Albumin [Mass/Vol] 4.2 g/dL Normal 3.4-5.0 [facility] Comment on above: Performed By: #### A 1C #### [facility] [address] [place] [address] Dr. Ambrosio Ramirez Albumin/Globulin [Mass ratio] 1.3 {ratio} Normal [facility] Comment on above: Performed By: #### A 1C #### [facility] [address] [address] [address] Ambrosio Ramirez ALP [Catalytic activity/Vol] 62 U/L Normal 46-[address] [facility] Comment on above: Performed By: #### A 1C #### [facility] [address] [place] [address] Dr. Ambrosio Ramirez ALT [Catalytic activity/Vol] 27 U/L Normal 14-[address] [facility] Comment on above: Performed By: #### A 1C #### [facility] [address] [address] [address] Ambrosio Ramirez Anion gap [Moles/Vol] 12.8 mmol/L Normal [facility] Comment on above: Performed By: #### A 1C #### [facility] [address] [place] [address] Dr. Ambrosio Ramirez AST [Catalytic activity/Vol] 39 U/L Critically high 15-[address] [facility] Comment on above: Performed By: #### A 1C #### [facility] [address] [address] [address] Ambrosio Ramirez Bilirubin [Mass/Vol] 0.4 mg/dL Normal 0.2-1.[address] [facility] Comment on above: Performed By: #### A 1C #### [facility] [address] [place] [address] Dr. Ambrosio Ramirez Calcium [Mass/Vol] 9.1 mg/dL Normal 8.5-10.1 [facility] Comment on above: Performed By: #### A 1C #### [facility] [address] [place] [address] Dr. Ambrosio Ramirez Chloride [Moles/Vol] 103 mmol/L Normal 98-[address] [facility] Comment on above: Performed By: #### A 1C #### [facility] [address] [place] [address] Dr. Ambrosio Ramirez CO2 [Moles/Vol] 30.5 mmol/L Normal 21.0-32.[address] [facility] Comment on above: Performed By: #### A 1C #### [facility] [address] [place] [address] Dr. Ambrosio Ramirez Creatinine [Mass/Vol] 0.54 mg/dL Critically low 0.55-1.[address] [facility] Comment on above: Performed By: #### A 1C #### [facility] [address] [place] [address] Dr. Ambrosio Ramirez EGFR-AF MAURITIAN >60 Normal >=[address] [facility] Comment on above: Performed By: #### A 1C #### [facility] [address] [place] [address] Dr. Ambrosio Ramirez EGFR-NON AF MAURITIAN >60 Normal >=[address] [facility] Comment on above: Performed By: #### A 1C #### [facility] [address] [place] [address] Dr. Ambrosio Ramirez Globulin (S) [Mass/Vol] 3.3 g/dL Normal [facility] Comment on above: Performed By: #### A 1C #### [facility] [address] [address] [address] Ambrosio Ramirez Glucose [Mass/Vol] 88 mg/dL Normal 74-106 [facility] Comment on above: Performed By: #### A 1C #### [facility] [address] [place] [address] Dr. Ambrosio Ramirez Potassium [Moles/Vol] 4.3 mmol/L Normal 3.5-5.[address] [facility] Comment on above: Performed By: #### A 1C #### [facility] [address] [place] [address] Dr. Ambrosio Ramirez Protein [Mass/Vol] 7.5 g/dL Normal 6.4-8.2 [facility] Comment on above: Performed By: #### A 1C #### [facility] [address] [place] [address] Dr. Ambrosio Ramirez Sodium [Moles/Vol] 142 mmol/L Normal 136-145 [facility] Comment on above: Performed By: #### A 1C #### [facility] [address] [place] [address] Dr. Ambrosio Ramirez Urea nitrogen [Mass/Vol] 9.0 mg/dL Normal 7.0-18.[address] [facility] Comment on above: Performed By: #### A 1C #### [facility] [address] [place] [address] Dr. Ambrosio Ramirez Urea nitrogen/Creatinine [Mass ratio] 16.7 mg/mg Normal [facility] Comment on above: Performed By: #### A 1C #### [facility] [address] [place] [address] Dr. Ambrosio Ramirez TSHon 03-12-2022 TSH 1.934 uIU/mL Normal 0.358-3.740 [facility] Comment on above: Performed By: #### A 1C #### [facility] [address] [address] [address] Ambrosio Ramirez XR TSPINE 3 VIEWSon [...] GEORGE CATALAN Date: 2022-03-12 17:07 Normal [facility] Covid-19 PCR (CVDTB)on SARS-CoV-2 (COVID-19) RNA JAYY+probe Ql (Unsp spec) Not detected Normal NOT DETECTED [facility] Comment on above: Result Comment: When diagnostic [...] for this test is supported by the [place] of Health and Human Service's declaration that [...] used). Performed By: #### C VDTBH #### [facility] [address] [place], [place] [address] Dr. Ambrosio Ramirez INFLUENZA A AND B AGon 01-27 INFLUENZA A AG Negative Normal NEGATIVE SEE COMMENT [facility] Comment on above: Performed By: #### I NFLUAB #### [facility] [address] [address] [address] Ambrosio Ramirez INFLUENZA B AG Negative Normal NEGATIVE SEE COMMENT [facility] Comment on above: Performed By: #### I NFLUAB #### [facility] [address] [place] [address] Dr. Ambrosio Ramirez INTERNAL CONTROLS Within Normal Limits Normal Wi thin Normal Limits [facility] Comment on above: Performed By: #### I NFLUAB #### [facility] [address] [id number] Ambrosio Ramirez XR CHEST 2 Von [...] GEORGE ROWE Date: 2022-01-27 14:42 Normal [facility] RPR QUANTon 08-26-2021 Rapid Plasma Reagin, Quant Non-Reactive Normal NonRea<1:1 [facility] Comment on above: Result Comment: Plea se Note: This test does not meet current guidelines for screening and diagnosis of syphilis. This test is intended for following treatment response in patients being treated for syphilis infection. To screen for syphilis infection, a reflex cascade that includes both RPR and a treponema-specific assay should be utilized, such as Treponema pallidum (Syphilis) Screening Becker (579622) or Rapid Plasma Reagin (RPR) Test With Reflex to Quantitative RPR and Confirmatory Treponema pallidum Antibodies (475271). Performed By: #### R PRQ #### [facility] [address] [place] [address] Dr. Ambrosio Ramirez HEP B SURFACE ANTIGEN SCREEN on 08-24-2021 HBsAg Screen Negative Normal Negative [facility] Comment on above: Performed By: #### H BSANS #### [facility] [address] [place] [address] Dr. Ambrosio Ramirez HEPATITIS C ANTIBODYon 08-24 Hep C Virus Ab <0.1 Normal 0.0-0.9 [facility] Comment on above: Result Comment: Nega [...] Hepatitis C Virus (HCV) RNA, Diagnosis, JAYY (534587) and Hepatitis C Virus (HCV) Antibody with reflex to Quantitative Real-time PCR (735102). Performed By: #### H CV #### [facility] [address] [place] [address] Dr. Ambrosio Ramirez INSULINon 08-23-2021 Insulin 5.0 uIU/mL Normal 2.6-24.[address] [facility] Comment on above: Performed By: #### A 1C #### [facility] [address] [place] [address] Dr. Ambrosio Ramirez OCC BLD IMMUNO SCREENon OCCULT BLOOD Negative Normal NEGATIVE [facility] Comment on above: Performed By: #### O BSCRN #### [facility] [address] [place] [address] Dr. Ambrosio Ramirez CBC AUTO DIFFon 08-22-2021 BASO # 0.1 103/ul Normal 0.0-0.[address] [facility] Comment on above: Performed By: #### O BSCRN #### [facility] [address] [place] [address] Dr. Ambrosio Ramirez Basophils/100 WBC (Bld) 1.0 % Normal 0.2-2.0 [facility] Comment on above: Performed By: #### O BSCRN #### [facility] [address] [place] [address] Dr. Ambrosio Ramirez EO # 0.1 103/ul Normal 0.0-0.[address] [facility] Comment on above: Performed By: #### O BSCRN #### [facility] [address] [place] [address] Dr. Ambrosio Ramirez Eosinophils/100 WBC (Bld) 1.8 % Normal 0.9-7.[address] [facility] Comment on above: Performed By: #### O BSCRN #### [facility] [address] [place] [address] Dr. Ambrosio Ramirez Erythrocyte distribution width (RBC) [Ratio] 11.9 % Normal 11.0-15.[address] [facility] Comment on above: Performed By: #### O BSCRN #### [facility] [address] [place] [address] Dr. Ambrosio Ramirez Hematocrit (Bld) [Volume fraction] 48.6 % Critically high 36.0-48.[address] [facility] Comment on above: Performed By: #### O BSCRN #### [facility] [address] [place] [address] Dr. Ambrosio Ramirez Hemoglobin (Bld) [Mass/Vol] 16.3 g/dL Critically high 12.0-16.[address] [facility] Comment on above: Performed By: #### O BSCRN #### [facility] [address] [place] [address] Dr. Ambrosio Ramirez IG # 0.03 10e3/ul Normal 0.00-0.[address] [facility] Comment on above: Performed By: #### O BSCRN #### [facility] [address] [place] [address] Dr. Ambrosio Ramirez IG % 0.6 % Critically high 0.0-0.5 [facility] Comment on above: Performed By: #### O BSCRN #### [facility] [address] [place] [address] Dr. Ambrosio Ramirez LYMPH # 2.4 103/ul Normal 1.2-3.8 [facility] Comment on above: Performed By: #### O BSCRN #### [facility] [address] [place] [address] Dr. Ambrosio Ramirez Lymphocytes/100 WBC (Bld) 46.9 % Normal 20.5-60.[address] [facility] Comment on above: Performed By: #### O BSCRN #### [facility] [address] [place] [address] Dr. Ambrosio Ramirez MANUAL DIFF REQ NO Normal [facility] Comment on above: Performed By: #### O BSCRN #### [facility] [address] [place] [address] Dr. Ambrosio Ramirez MCH (RBC) [Entitic mass] 34.9 pg Critically high 26.7-34.[address] [facility] [address] [facility] Comment on above: Performed By: #### O BSCRN #### [facility] [address] [place] [address] Dr. Ambrosio Ramirez MCHC (RBC) [Mass/Vol] 33.5 g/dL Normal 29.9-35.[address] [facility] Comment on above: Performed By: #### O BSCRN #### [facility] [address] [place] [address] Dr. Ambrosio Ramirez MCV (RBC) [Entitic vol] 104.1 fL Critically high 81.0-99.[address] [facility] Comment on above: Performed By: #### O BSCRN #### [facility] [address] [place] [address] Dr. Ambrosio Ramirez MONO # 0.4 103/ul Normal 0.3-0.[address] [facility] Comment on above: Performed By: #### O BSCRN #### [facility] [address] [place] [address] Dr. Ambrosio Ramirez Monocytes/100 WBC (Bld) 8.2 % Normal 1.7-12.[address] [facility] Comment on above: Performed By: #### O BSCRN #### [facility] [address] [place] [address] Dr. Ambrosio Ramirez NEUT # 2.1 103/ul Normal 1.4-6.[address] [facility] Comment on above: Performed By: #### O BSCRN #### [facility] [address] [place] [address] Dr. Ambrosio Ramirez Neutrophils/100 WBC (Bld) 41.5 % Critically low 43.0-75.[address] [facility] Comment on above: Performed By: #### O BSCRN #### [facility] [address] [address] [address] Ambrosio Ramirez Platelet mean volume (Bld) [Entitic vol] 9.3 fL Critically low 9.5-13.[address] [facility] Comment on above: Performed By: #### O BSCRN #### [facility] [address] [address] [address] Ambrosio Ramirez PLT 210 103/ul Normal 150-[address] [facility] Comment on above: Performed By: #### O BSCRN #### [facility] [address] [place] [address] Dr. Ambrosio Ramirez RBC 4.67 106/ul Normal 4.20-5.[address] [facility] Comment on above: Performed By: #### O BSCRN #### [facility] [address] [place] [address] Dr. Ambrosio Ramirez WBC 5.0 103/ul Normal 4.0-11.[address] [facility] Comment on above: Performed By: #### O BSCRN #### [facility] [address] [address] [address] Ambrosio Ramirez FREE THYROXINE INDEX T7on FTI 2.72 Normal 1.30-4.[address] [facility] Comment on above: Performed By: #### O BSCRN #### [facility] [address] [place] [address] Dr. Ambrosio Ramirez T3U 32.0 % Normal 30.0-39.[address] [facility] Comment on above: Performed By: #### O BSCRN #### [facility] [address] [address] [address] Ambrosio Ramirez T4 [Mass/Vol] 8.50 ug/dL Normal 4.80-13.90 [facility] Comment on above: Performed By: #### O BSCRN #### [facility] [address] [place] [address] Dr. Ambrosio Ramirez GLYCOHEMOGLOBIN A1Con 2021 ADA RECOMMENDATION SEE BELOW Normal [facility] Comment on above: Result Comment: ADA RECOMMENDED LIMIT 4.0 - 6.0 ADA THERAPEUTIC TARGET < 7.0 ACTION SUGGESTED > 7.0 Performed By: #### A 1C #### [facility] [address] [place] [address] Dr. Ambrosio Ramirez Glucose [Mass/Vol] 108 mg/dL Normal [facility] Comment on above: Performed By: #### A 1C #### [facility] [address] [place] [address] Dr. Ambrosio Ramirez HbA1c (Bld) [Mass fraction] 5.4 % Normal 4.5-6.[address] [facility] Comment on above: Performed By: #### A 1C #### [facility] [address] [place] [address] Dr. Ambrosio Ramirez HIV 1/2 RAPID (EXPOSURE ONLY )on 08-22-2021 HIV AB Negative Normal [facility] Comment on above: Performed By: #### A 1C #### [facility] [address] [place] [address] Dr. Ambrosio Ramirez HIV AG Negative Normal [facility] Comment on above: Performed By: #### A 1C #### [facility] [address] [place] [address] Dr. Ambrosio Ramirez INTERNAL CONTROLS Within Normal Limits Normal Wi thin Normal Limits [facility] Comment on above: Performed By: #### A 1C #### [facility] [address] [place] [address] Dr. Ambrosio Ramirez RAPID HIV INFO SEE BELOW Normal [facility] Comment on above: Result Comment: This test is used for the initial screening of the exposure source. Confirmation of all results will be obtained through reference lab testing. Performed By: #### A 1C #### [facility] [address] [place] [address] Dr. Ambrosio Ramirez IRONon 08-22-2021 Iron [Mass/Vol] 137.0 ug/dL Normal 50.0-170.[address] [facility] Comment on above: Performed By: #### I HAMLET #### [facility] [address] [place] [address] Dr. Ambrosio Ramirez LIPID PROFILEon 08-22-2021 CHOL-HDL RATIO NORM SEE BELOW Normal [facility] Comment on above: Result Comment: 3.3 - 4.4 LOW RISK 4.4 - 7.1 AVERAGE RISK 7.1 - 11.0 MODERATE RISK >11.0 HIGH RISK Performed By: #### O BSCRN #### [facility] [address] [address] [address] Ambrosio Ramirez Cholesterol [Mass/Vol] 251 mg/dL Critically high <=[address] [facility] Comment on above: Performed By: #### O BSCRN #### [facility] [address] [address] [address] Ambrosio Ramirez Cholesterol in HDL [Mass/Vol] 67 mg/dL Critically high 40-[address] [facility] Comment on above: Performed By: #### O BSCRN #### [facility] [address] [address] [address] Ambrosio Ramirez Cholesterol in LDL [Mass/Vol] 154.8 mg/dL Normal [facility] Comment on above: Performed By: #### O BSCRN #### [facility] [address] [address] [address] Ambrosio Ramirez Cholesterol.total/Cho lesterol in HDL [Mass ratio] 3.7 {ratio} Normal [facility] Comment on above: Performed By: #### O BSCRN #### [facility] [address] [address] [address] Ambrosio Ramirez HDL NORMAL > or = 60 mg/dl - LOW CARDIOVASCULAR RISK <40 mg/dl - HIGH CARDIOVASCULAR RISK Normal [facility] Comment on above: Performed By: #### O BSCRN #### [facility] [address] [id number] [address] Ambrosio Ramirez LDL CALC NORMAL SEE BELOW Normal [facility] Comment on above: Result Comment: <100 mg/dl OPTIMAL 100 - 129 mg/dl NEAR OR ABOVE OPTIMAL 130 - 159 mg/dl BORDERLINE HIGH 160 - 189 mg/dl HIGH >190 mg/dl VERY HIGH Performed By: #### O BSCRN #### [facility] [address] [address] [address] Ambrosio Ramirez Triglyceride [Mass/Vol] 146 mg/dL Normal <=[address] [facility] Comment on above: Performed By: #### O BSCRN #### [facility] [address] [place] [address] Dr. Ambrosio Ramirez VLDL CALC 29.2 mg/dL Normal [facility] Comment on above: Performed By: #### O BSCRN #### [facility] [address] [address] [address] Ambrosio Ramirez PROF 14(COMP METB)on 022 Albumin [Mass/Vol] 4.3 g/dL Normal 3.4-5.0 [facility] Comment on above: Performed By: #### O BSCRN #### [facility] [address] [place] [address] Dr. Ambrosio Ramirez Albumin/Globulin [Mass ratio] 1.2 {ratio} Normal [facility] Comment on above: Performed By: #### O BSCRN #### [facility] [address] [place] [address] Dr. Ambrosio Ramirez ALP [Catalytic activity/Vol] 57 U/L Normal 46-[address] [facility] Comment on above: Performed By: #### O BSCRN #### [facility] [address] [place] [address] Dr. Ambrosio Ramirez ALT [Catalytic activity/Vol] 56 U/L Normal 14-[address] [facility] Comment on above: Performed By: #### O BSCRN #### [facility] [address] [place] [address] Dr. Ambrosio Ramirez Anion gap [Moles/Vol] 11.5 mmol/L Normal [facility] Comment on above: Performed By: #### O BSCRN #### [facility] [address] [place] [address] Dr. Ambrosio Ramirez AST [Catalytic activity/Vol] 75 U/L Critically high 15-[address] [facility] Comment on above: Performed By: #### O BSCRN #### [facility] [address] [place] [address] Dr. Ambrosio Ramirez Bilirubin [Mass/Vol] 0.4 mg/dL Normal 0.2-1.[address] [facility] Comment on above: Performed By: #### O BSCRN #### [facility] [address] [place] [address] Dr. Ambrosio Ramirez Calcium [Mass/Vol] 8.7 mg/dL Normal 8.5-10.1 [facility] Comment on above: Performed By: #### O BSCRN #### [facility] [address] [place] [address] Dr. Ambrosio Ramirez Chloride [Moles/Vol] 105 mmol/L Normal 98-[address] [facility] Comment on above: Performed By: #### O BSCRN #### [facility] [address] [place] [address] Dr. Ambrosio Ramirez CO2 [Moles/Vol] 30.3 mmol/L Normal 21.0-32.[address] [facility] Comment on above: Performed By: #### O BSCRN #### [facility] [address] [place] [address] Dr. Ambrosio Ramirez Creatinine [Mass/Vol] 0.67 mg/dL Normal 0.55-1.[address] [facility] Comment on above: Performed By: #### O BSCRN #### [facility] [address] [place] [address] Dr. Ambrosio Ramirez EGFR-AF MAURITIAN >60 Normal >=[address] [facility] Comment on above: Performed By: #### O BSCRN #### [facility] [address] [place] [address] Dr. Ambrosio Ramirez EGFR-NON AF MAURITIAN >60 Normal >=[address] [facility] Comment on above: Performed By: #### O BSCRN #### [facility] [address] [place] [address] Dr. Ambrosio Ramirez Globulin (S) [Mass/Vol] 3.7 g/dL Normal [facility] Comment on above: Performed By: #### O BSCRN #### [facility] [address] [place] [address] Dr. Ambrosio Ramirez Glucose [Mass/Vol] 93 mg/dL Normal 74-106 [facility] Comment on above: Performed By: #### O BSCRN #### [facility] [address] [address] [address] Ambrosio Ramirez Potassium [Moles/Vol] 4.8 mmol/L Normal 3.5-5.[address] [facility] Comment on above: Performed By: #### O BSCRN #### [facility] [address] [address] [address] Ambrosio Ramirez Protein [Mass/Vol] 8.0 g/dL Normal 6.4-8.2 [facility] Comment on above: Performed By: #### O BSCRN #### [facility] [address] [place] [address] Dr. Ambrosio Ramirez Sodium [Moles/Vol] 142 mmol/L Normal 136-145 [facility] Comment on above: Performed By: #### O BSCRN #### [facility] [address] [place] [address] Dr. Ambrosio Ramirez Urea nitrogen [Mass/Vol] 8.0 mg/dL Normal 7.0-18.[address] [facility] Comment on above: Performed By: #### O BSCRN #### [facility] [address] [place] [address] Dr. Ambrosio Ramirez Urea nitrogen/Creatinine [Mass ratio] 11.9 mg/mg Normal [facility] Comment on above: Performed By: #### O BSCRN #### [facility] [address] [place] [address] Dr. Ambrosio Ramirez TSHon 08-22-2021 TSH 2.117 uIU/mL Normal 0.358-3.740 [facility] Comment on above: Performed By: #### O BSCRN #### [facility] [address] [place] [address] Dr. Ambrosio Ramirez XR CSPINE MIN 4 [...] Cervical fusion hardware with no mechanical failure [id number] degenerative changes of the cervical thoracic spine Electronically authenticated by: GEORGE ROWE Date: 2021-08-22 21:[address] [facility] Vital Signs Date Time Vital Sign Value Performing Clinician Facility 05-09-2022 10:14-0400 Diastolic blood pressure 85 mm[Hg] 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 Ama Edwards Work Phone: [facility] 05-09-2022 10:14-0400 Heart rate 99 /min 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 Ama Edwards Work Phone: [facility] 05-09-2022 10:14-0400 Respiratory rate 18 /min 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 Ama Edwards Work Phone: [facility] 05-09-2022 10:14-0400 SaO2% (BldA) [Mass fraction] 99 % 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 Ama Edwards Work Phone: [facility] 05-09-2022 10:14-0400 Systolic blood pressure 124 mm[Hg] 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 [employer] Ama Edwards Work Phone: [facility] 05-09-2022 08:04-0400 Body height 180.34 cm 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 [employer] Ama Edwards Work Phone: [facility] 05-09-2022 08:04-0400 Body weight 58.96 kg 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 Ama Edwards Work Phone: [facility] 05-01-2022 11:15-0500 Body height [email or web address] Other [facility] Other 05-01-2022 11:15-0500 Body mass index (BMI) [Ratio] 18.13 kg/m2 [facility] Other [facility] Other 05-01-2022 11:15-0500 Body weight 58.97 kg Imad Asaad Other [facility] Other 05-01-2022 11:15-0500 Diastolic blood pressure 102 mm[Hg] Imad Asaad Other [facility] Other 05-01-2022 11:15-0500 Respiratory rate 16 /min Imad Asaad Other [facility] Other 05-01-2022 11:15-0500 Systolic blood pressure 158 mm[Hg] Imad Asaad Other [facility] Other Encounters Encounter Date Encounter Type Care Provider Facility Start: 12-15-2022 End: 12-16-2022 ambulatory Manuel Reynaga MD Facility: [facility] Start: 11-17-2022 End: 11-18-2022 ambulatory Manuel Reynaga MD Facility: [facility] Start: 11-10-2022 End: 11-11-2022 ambulatory Manuel Reynaga MD Facility: [facility] Start: 05-09-2022 End: 05-09-2022 ambulatory Ama Edwards Facility:[facility] Start: 05-09-2022 End: 05-09-2022 Admission to same day surgery center 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 Ama Edwards Work Phone: [facility] Work Phone: Start: 05-09-2022 End: 05-09-2022 ambulatory 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 Ama Edwards Work Phone: [facility] Work Phone: Start: 05-02-2022 End: 05-02-2022 ambulatory Imad Asaad Other [facility] Other Start: 05-02-2022 Telephone encounter Imad Asaad [facility] Start: 05-01-2022 End: 05-01-2022 ambulatory Imad Asaad Other [facility] Other Start: 05-01-2022 Office consultation new/estab patient [...] Procedure Detail Performing Clinician Start: 05-09-2022 Esophagogastroduodenoscopy 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 [employer] Ama patel Work Phone: Screening for malign ant neoplasm of colon Imad Asaad Other Plan of Treatment Date Care Activity Detail Author Start: 05-09-[address] [facility] Patient Education Colon Polyps H emorrhoids (DC) Diverticulosis (DC) Gastritis (DC) [facility] Work Phone: Payers Date Payer Category Payer Self-pay 2022 Unknown 1960 Unknown [id number] 2.16.84 [id number] 1960 Unknown [id number] 2.16.84 [id number] 1960 Unknown [id number] 2.16.84 [id number] 1960 Unknown [id number] 2.16.84 [id number] 1960 Unknown [id number] 2.16.84 [id number] 1960 Unknown [id number] 2.16.84 [id number] 1960 Unknown [id number] 2.16.84 [id number] 1960 Unknown [id number] 2.16. [id number] 1960 Unknown [id number] 2.16. [id number] 1960 Unknown [id number] 2.16. [id number] 1957 Medicare [id number] 1957 Unknown [id number] 1959 Unknown [id number] 1957 Unknown [id number] Unknown [id number] 2.16.8 [id number] Social History Date Type Detail Facility Start: 05-09-2022 Tobacco smoking status RIIS Smoker (finding) [facility] Start: 1960 Sex Assigned At Female F [facility] Sex Assigned At Sex Assigned At Bir th [facility] Other Goals Date Patient Goal Desired Activity /State Procedure note 05-09-2022 Note Date & Type Note Facility 05-09-2022 Procedure note [facility] Evaluation note 05-01-2022 Note Date & Type Note Facility 05-01-2022 Evaluation note Encounter Date Diagnosis Assessment Notes Apr, Dysphagia (ICD-10 - R13.10) Apr, Weight loss (ICD-10 - R63.4) Apr, Colon cancer screening (ICD-10 - Z12.11) [facility] Other Evaluation note Note Date & Type Note Facility Evaluation note No assessment information jesse navas [facility] Work Phone: Evaluation note Note Date & Type Note Facility Evaluation note No Information [facility] Other History general Narrative - Reported Note Date & Type Note Facility History general Narrative - Reported Type Medical History Anxiety/Depression Surgical History Neck surgery Surgical History Tonsillectomy Hospitalization History See above [facility] Other Hospital Discharge instructions Note Date & [...] -Follow up with PCP. - Office number [phone]. [facility] Work Phone: Chief Complaint and Reason [...] HERE AT THE REQUE [facility] OF [facility] EDWARDS FOR DIARRHEA, WEIGHT LOSS AND DYSPHAGIAClinical INFORMATION SOURCE (unrecogn ized section and content) DATE CREATED AUTHOR 05/20/2022 [facility] DATE CREATED AUTHOR AUTHOR'S ORGANIZ ATION 07/02/2022 [facility] DATE CREATED AUTHOR AUTHOR'S ORGANIZ ATION 12/23/2022 [facility] FOR RECORDS PERTAINING TO PATIENTS WHO ARE [...] BE BASED ON THE PRIMARY CLINICAL RECORDS. [facility] [employer] [facility] provides no warranty or guarantee of the accuracy or completeness of information in this document.
== END 2023-07-09 08:27 | disposition home or self-care (01) ==
LOC: MRI 08:28
PROVIDERS: PCP Nurse Practitioner Family; Visit Provider Anesthesiology
DX: M48.062 Spinal stenosis, lumbar region with neurogenic claudication (principal)
CPT/HCPCS: 72148

== ENCOUNTER 2023-07-15 12:41 | Outpatient (OUT) | payer MEDICARE, OTHER, MEDICAID, SELFPAY ==
--- NOTE | 2023-07-15 12:52 | PM.CN ---
Consult Note: HPI Data of Consult Patient: known to practice within the last 3 years Consult date: 07/06/23 Requesting Physician: Angle Brownlee NP Primary Care Provider: SOLITARIO EDWARDS Consult Narrative Reason for consult: neck, low back pain Narrative: 62yof who presents for assessment. notes worsening neck pain, low back pain. fused from C4-7. previously discussed proceeding with c2-3, c3-4 rfa, but patient then left to [place] for winter and now re-establishing. lumbar xr reviewed, which shows grade 2 listhesis of l4 on 5. continues in provider directed home exercise program >6 weeks, without benefit. uses robaxin without benefit. uses xanax prn. most recently underwent cervical xray and lumbar MRI, results noted below. cc:: CC: Angle Brownlee NP Review of Systems ROS Status of ROS 10 or more systems reviewed and unremarkable except as noted in history and below PFSH PFSH Medical History Upper back pain ?M54.9 - Dorsalgia, unspecified (ICD-10) Neck pain ?M54.2 - Cervicalgia (ICD-10) Anxiety ?F41.9 - Anxiety disorder, unspecified (ICD-10) Smoker ?F17.200 - Nicotine dependence, unspecified, uncomplicated (ICD-10) Surgical History H/O cervical spine surgery ?Z98.890 - Other specified postprocedural states (ICD-10) Meds Home Medications and Allergies Home Medications ?Medication ?Instructions ?Recorded ?Confirmed ?Type alprazolam 0.25 mg tablet (Xanax) 0.25 mg PO DAILY PRN anxiety 11/10/22 12/15/22 History escitalopram oxalate 10 mg tablet 10 mg PO DAILY 11/10/22 12/15/22 History (Lexapro) methocarbamol 750 mg tablet 750 mg PO TID 11/10/22 12/15/22 History celecoxib 200 mg capsule (Celebrex) 200 mg PO BID 12/26/22 12/26/22 History cyclobenzaprine 10 mg tablet 10 mg PO TID PRN muscle spasm #90 07/06/23 Rx tabs etodolac 400 mg tablet (Lodine) 400 mg PO BID #60 tabs 07/06/23 Rx Allergies Allergy/AdvReac Type Severity Reaction Status Date / Time No Known Drug Allergies Allergy Verified 12/15/22 10:25 Exam Narrative Exam Narrative: Psych-alert and oriented x 3.? Attentive and appropriate, constitutionally normal, displays normal mood and affect per situation.? There are no obvious deficits in memory, reasoning, or intellect.? Skin-no obvious rashes, bruising, or erythema noted to the patient's area of pain. Extremities-upper extremities are warm with minimal edema and palpable pulses. Cervical- tenderness to palpation noted in the cervical spine and paraspinal musculature.?strength in RUE 4/5 LUE 5/5 decreased sensation following C6,7,8 pattern on right Pain is elicited with extension, and lateral rotation of the cervical spine.? Range of motion is slightly diminished due to pain. Facet loading maneuvers are positive bilaterally Lumbar-tenderness to palpation noted in the lumbar spine and paraspinal musculature. Pain is not elicited with flexion, extension, and lateral rotation of the lumbar spine. Range of motion is not diminished with these motions. Facet loading maneuvers are negative.? Strength-noted to be unremarkable with the exception of decreased strength rated at 4 out of 5 in bilateral quadriceps femoris, anterior tibialis. Sensory-no notable sensory deficits in the bilateral lower extremities to touch or pinprick in all dermatomal distributions with the exception to decreased sensation to the bilateral L4, 5 dermatomal distribution.? Coordination remains intact.? Gait remains non-antalgic. Constitutional Documenting provider has reviewed patient's vital signs: yes Common normals: no apparent distress, oriented x3, healthy appearing, alert and well nourished General appearance: cooperative [facility] Common normals: normocephalic, hearing grossly normal bilaterally and moist oral mucous membranes Head and scalp: normocephalic Eye Common normals: PERRL Pupil: PERRL Neck & C-Spine Common normals: full ROM General: normal visual inspection Chest Common normals: inspection of chest normal Respiratory Common normals: normal respiratory effort, no retractions and no use of accessory muscles Neuro Common normals: oriented x3, CN's II-XII intact bilaterally, moves all extremities, no focal motor deficits, no sensory deficits noted and deep tendon reflexes 2+ bilaterally Sensorium/orientation: alert Motor exam: strength 5/5 throughout and no movement abnormalities noted Psych Common normals: mental status grossly normal, thought process normal, cooperative, affect normal, speech normal and activity/motor behavior normal Speech: normal speech Thought process: normal thought process Results Imaging Lumbar MRI: Attestation: I have reviewed the pertinent imaging results. Radiologist's impression: No neural foraminal narrowing or canal stenoses at the level of T12-L1 and L1-L2 is noted. At the level of L2-L3, there are disc bulge with no neuroforaminal narrowing and no canal stenosis. At the level of L3-4, there are disc bulge with no neuroforaminal narrowing and no canal stenosis. At the level of L4-5, there are grade 1-2 anterolisthesis uncovering disc with severe bilateral neuroforaminal narrowing and moderate to severe canal stenosis. Type I endplate changes at this level are noted. At the level of L5-S1, there are disc bulge with no neuroforaminal narrowing and no canal stenosis. The paraspinal muscles are unremarkable. Cervical Xray: Attestation: I have reviewed the pertinent imaging results. Radiologist's impression: BONES: Anterior posterior mechanical fusion of C4-C7; no hardware fracture or loosening. No bone fracture or spondylolisthesis. Mild-moderate degenerative facet arthropathy C3-4 through C6-7. DISC SPACES: Mild narrowing C2-3 and C3-4. Intervertebral disc spacers at C4-5, C5-6, C6-7. PARASPINOUS: Negative. No paraspinous abnormality is seen. OTHER: Negative. Additional Findings Additional findings: If on a controlled substance or opioids, I have checked an [facility] report on this patient and there are no aberrancies noted in the prescribing history.??If on a controlled substance or opioid a drug screen was completed and reviewed within the last year, and if there has not been a drug screen completed we ordered one today to monitor higher risk, state monitored pain medication use. As part of providing excellent, safe, comprehensive care, the following was completed at our patient's visit: 1. A medication reconciliation and review to ensure accurate knowledge of current/active medications, including asking our patients to inform us about any [id number] medications or herbal remedies/nutritional supplements/alternative remedies. 2. A review to specifically ensure our patients have had annual screening for screening for depression, screening for tobacco use, and screening for unhealthy alcohol use. For concerning screenings had a discussion with the patient, provided patient education, and recommended follow-up with primary care provider when appropriate. If patient noted with a risk of falling, they received education on strength, gait, and balance training to prevent future risk of falling. Assessment and Plan Assessment and Plan (1) Cervical radiculopathy: (2) Cervical postlaminectomy syndrome: (3) Cervical spondylosis: (4) Lumbar stenosis with neurogenic claudication: (5) Myofascial pain: Plan 62yof who presents for assessment. failed conservative measures. imaging reviewed, as noted. given worsening neck pain with radiculopathy, will obtain cervical MRI. in terms of low back symptoms, given degree of listhesis, will have her evaluated by spine surgeon. she is in agreement. meds reviewed. failed flexeril, not taking lodine. continues to take xanax, celebrex, and robaxin.
--- OUTSIDE RECORDS SUMMARY | 2023-07-15 12:58 | XMS_ITS | CCD ---
Author Organization [facility]ini[facility] Care Team Providers Care Lead Handler Name Role Phone MD Nesha Bryant Attending Provider JIE Edwards Primary Care Provider Asaad, Imad Unavailable Ama Edwards Primary Care Unavailable Asaad, Imad Attending Unavailable Asaad, Imad Admitting Unavailable JERRY, AMA Attending Unavailable JERRY, AMA Consulting Unavailable JERRY, AMA Primary Care Unavailable JERRY, AMA Admitting Unavailable JERRY, AMA Attending Unavailable JERRY, AMA Primary Care Unavailable JERRY, AMA Admitting Unavailable PAULINO, LOLIS Admitting Unavailable PAULINO, LOLIS Attending Unavailable PAULINO, LOLIS Consulting Unavailable JERRY, AMA Primary Care Unavailable DR GEORGE ROWE V Consulting Unavailable JERRY, AMA Attending Unavailable JERRY, AMA Primary Care Unavailable JERRY, AMA Admitting Unavailable JERRY, AMA Consulting Unavailable JERRY, AMA Admitting Unavailable ZIEBER, DR DENNY Franz Consulting Unavailable JERRY, AMA Attending Unavailable JERRY, AMA Primary Care Unavailable JERRY, AMA Consulting Unavailable JERRY, AMA Admitting Unavailable JERRY, AMA Attending Unavailable ZIEBER, DR DENNY Franz Consulting Unavailable JERRY, AMA Primary Care Unavailable JERRY, AMA Consulting Unavailable George Catalan Unavailable JERRY, AMA Primary Care Unavailable JERRY, AMA Attending Unavailable JERRY, AMA Primary Care Unavailable DR GEORGE ROWE V Consulting Unavailable JERRY, AMA Admitting Unavailable JERRY, AMA Consulting Unavailable Juhi LEON, Manuel Yoo Attending Unavailable Giteo LEON, Manuel Yoo Attending Unavailable Juhi LEON, [...] 30 days Apr, Active polyethylene glycol 3350 806655 mg / potassium chloride 2970 mg / sodium bicarbonate 6740 mg / sodium chloride 5860 mg / sodium sulfate 21214 mg powder for oral solution (2 sources) [...] Test Name Value Interpretation Reference Range Facility [facility] 05-09-2022 L Specimen: [id number] Received: 05/09/22 Status: EDUARD Nickbatsheva Num: [id number] Spec Type: Surgical Subm Dr: Nesha Bryant MD Tissues: A Gastric Biopsy (GASTRIC) B Esophagus Biopsy (DISTAL ESOPHAGUS) C Esophagus Biopsy (PROXIMAL ESOPHAGUS) D Colon Biopsy (CECAL POLYP) E Colon Biopsy (SIGMOID POLYP) F Colon Biopsy (RECTAL POLYPS X3) Procedures: Sanya CUNNINGHAM/Lindsay L4/6 Age/ Patient Sex Location Account Attending Physician Nancy Joyce 61/F [id number] Nesha Bryant MD SPEC NUM: [id number] RECD: 05/09/22 STATUS: EDUARD NIK NUM: [id number] KATY: 05/09/22- SUBM DR: Nesha Bryant MD ENTERED: 05/09/22-[address]: SPEC TYPE: Surgical DEPT: S ORDERED: HE/12, Gross/Micro L4/6 ORDERED: HE, Gross/Micro L4/6 Pathological Diagnosis A. Stomach, gastric, [...] mucosal fold. - Negative for adenoma/dysplasia. Specimen: [id number] Received: 05/09/22 Status: EDUARD Nik Num: [id number] Spec Type: Surgical Subm Dr: Nesha Bryant MD Tissues: A Gastric Biopsy (GASTRIC) B Esophagus Biopsy (DISTAL ESOPHAGUS) C Esophagus Biopsy (PROXIMAL ESOPHAGUS) D Colon Biopsy (CECAL POLYP) E Colon Biopsy (SIGMOID POLYP) F Colon Biopsy (RECTAL POLYPS X3) Procedures: , Gross/Micro L4/6 Patient: Nancy Joyce [id number] (Continued) Specimen: [id number] Received: 05/09/22 (Continued) Pathological Diagnosis (Continued) Signed (signature on file) Carin Oliveros MD 05/12/22 1130 Specimen: [id number] Received: 05/09/22 Status: EDUARD Zaragoza Num: [id number] Spec Type: Surgical Subm Dr: Nesha Bryant MD Tissues: A Gastric Biopsy (GASTRIC) B Esophagus Biopsy (DISTAL ESOPHAGUS) C Esophagus Biopsy (PROXIMAL ESOPHAGUS) D Colon Biopsy (CECAL POLYP) E Colon Biopsy (SIGMOID POLYP) F Colon Biopsy (RECTAL POLYPS X3) Procedures: ROSI/Sanya Jimenez/Lindsay L4/6 Patient: Nancy Joyce [id number] (Continued) Specimen: [id number] Received: 05/09/22 (Continued) Pathological Diagnosis (Continued) E. [...] labeled 1. (more content not included)... Normal [facility] XR MODIFIED BARIUM SWALLOWon 03-25-2022 [...] DENNY RINCON Date: 2022-03-25 13:53 Normal [facility] INSULINon 03-13-2022 Insulin 3.9 uIU/mL Normal 2.6-24.9 [facility] Comment on above: Performed By: #### O BSCRN #### [facility] [address] [place] [address] Dr. Ambrosio Ramirez XR CSPINE MIN 4 [...] DENNY RINCON Date: 2022-03-13 08:09 Normal [facility] CBC AUTO DIFFon 03-12-2022 BASO # 0.0 103/ul Normal 0.0-0.1 [facility] Comment on above: Performed By: #### C BC #### [facility] [address] [place] [address] Dr. Ambrosio Ramirez Basophils/100 WBC (Bld) 0.7 % Normal 0.2-2.0 [facility] Comment on above: Performed By: #### C BC #### [facility] [address] [place] [address] Dr. Ambrosio Ramirez EO # 0.1 103/ul Normal 0.0-0.7 [facility] Comment on above: Performed By: #### C BC #### [facility] [address] [place] [address] Dr. Ambrosio Ramirez Eosinophils/100 WBC (Bld) 0.9 % Normal 0.9-7.0 [facility] Comment on above: Performed By: #### C BC #### [facility] [address] [place] [address] Dr. Ambrosio Ramirez Erythrocyte distribution width (RBC) [Ratio] 12.3 % Normal 11.0-15.0 [facility] Comment on above: Performed By: #### C BC #### [facility] [address] [place] [address] Dr. Ambrosio Ramirez Hematocrit (Bld) [Volume fraction] 46.0 % Normal 36.0-48.0 [facility] Comment on above: Performed By: #### C BC #### [facility] [address] [place] [address] Dr. Ambrosio Ramirez Hemoglobin (Bld) [Mass/Vol] 15.2 g/dL Normal 12.0-16.0 [facility] Comment on above: Performed By: #### C BC #### [facility] [address] [place] [address] Dr. Ambrosio Ramirez IG # 0.03 10e3/ul Normal 0.00-0.03 [facility] Comment on above: Performed By: #### C BC #### [facility] [address] [place] [address] Dr. Ambrosio Ramirez IG % 0.5 % Normal 0.0-0.5 [facility] Comment on above: Performed By: #### C BC #### [facility] [address] [place] [address] Dr. Ambrosio Ramirez LYMPH # 2.0 103/ul Normal 1.2-3.8 [facility] Comment on above: Performed By: #### C BC #### [facility] [address] [place] [address] Dr. Ambrosio Ramirez Lymphocytes/100 WBC (Bld) 35.0 % Normal 20.5-60.0 [facility] Comment on above: Performed By: #### C BC #### [facility] [address] [place] [address] Dr. Ambrosio Ramirez MANUAL DIFF REQ NO Normal [facility] Comment on above: Performed By: #### C BC #### [facility] [address] [address] [address] Ambrosio Ramirez MCH (RBC) [Entitic mass] 33.8 pg Normal 26.7-34.0 [facility] Comment on above: Performed By: #### C BC #### [facility] [address] [place] [address] Dr. Ambrosio Ramirez MCHC (RBC) [Mass/Vol] 33.0 g/dL Normal 29.9-35.2 [facility] Comment on above: Performed By: #### C BC #### [facility] [address] [place] [address] Dr. Ambrosio Ramirez MCV (RBC) [Entitic vol] 102.2 fL Critically high 81.0-99.0 [facility] Comment on above: Performed By: #### C BC #### [facility] [address] [place] [address] Dr. Ambrosio Ramirez MONO # 0.4 103/ul Normal 0.3-0.8 [facility] Comment on above: Performed By: #### C BC #### [facility] [address] [place] [address] Dr. Ambrosio Ramirez Monocytes/100 WBC (Bld) 7.2 % Normal 1.7-12.0 [facility] Comment on above: Performed By: #### C BC #### [facility] [address] [place] [address] Dr. Ambrosio Ramirez NEUT # 3.2 103/ul Normal 1.4-6.5 [facility] Comment on above: Performed By: #### C BC #### [facility] [address] [place] [address] Dr. Ambrosio Ramirez Neutrophils/100 WBC (Bld) 55.7 % Normal 43.0-75.0 [facility] Comment on above: Performed By: #### C BC #### [facility] [address] [place] [address] Dr. Ambrosio Ramirez Platelet mean volume (Bld) [Entitic vol] 9.1 fL Critically low 9.5-13.5 [facility] Comment on above: Performed By: #### C BC #### [facility] [address] [address] [address] Ambrosio Ramirez PLT 234 103/ul Normal 150-450 [facility] Comment on above: Performed By: #### C BC #### [facility] [address] [address] [address] Ambrosio Ramirez RBC 4.50 106/ul Normal 4.20-5.40 [facility] Comment on above: Performed By: #### C BC #### [facility] [address] [address] [address] Ambrosio Ramirez WBC 5.7 103/ul Normal 4.0-11.0 [facility] Comment on above: Performed By: #### C BC #### [facility] [address] [place] [address] Dr. Ambrosio Ramirez FREE THYROXINE INDEX T7on FTI 2.41 Normal 1.30-4.50 [facility] Comment on above: Performed By: #### A 1C #### [facility] [address] [place] [address] Dr. Ambrosio Ramirez T3U 33.0 % Normal 30.0-39.0 [facility] Comment on above: Performed By: #### A 1C #### [facility] [address] [place] [address] Dr. Amborsio Ramirez T4 [Mass/Vol] 7.30 ug/dL Normal 4.80-13.90 [facility] Comment on above: Performed By: #### A 1C #### [facility] [address] [place] [address] Dr. Ambrosio Ramirez GLYCOHEMOGLOBIN A1Con 2022 ADA RECOMMENDATION SEE BELOW Normal [facility] Comment on above: Result Comment: ADA RECOMMENDED LIMIT 4.0 - 6.0 ADA THERAPEUTIC TARGET < 7.0 ACTION SUGGESTED > 7.0 Performed By: #### A 1C #### [facility] [address] [place] [address] Dr. Ambrosio Ramirez Glucose [Mass/Vol] 100 mg/dL Normal [facility] Comment on above: Performed By: #### A 1C #### [facility] [address] [address] [address] Ambrosio Ramirez HbA1c (Bld) [Mass fraction] 5.1 % Normal 4.5-6.2 [facility] Comment on above: Performed By: #### A 1C #### [facility] [address] [place] [address] Dr. Ambrosio Ramirez IRONon 03-12-2022 Iron [Mass/Vol] 148.0 ug/dL Normal 50.0-170.0 [facility] Comment on above: Performed By: #### O BSCRN #### [facility] [address] [place] [address] Dr. Ambrosio Ramirez LIPID PROFILEon 03-12-2022 CHOL-HDL RATIO NORM SEE BELOW Normal [facility] Comment on above: Result Comment: 3.3 - 4.4 LOW RISK 4.4 - 7.1 AVERAGE RISK 7.1 - 11.0 MODERATE RISK >11.0 HIGH RISK Performed By: #### A 1C #### [facility] [address] [place] [address] Dr. Ambrosio Ramirez Cholesterol [Mass/Vol] 234 mg/dL Critically high <=200 [facility] Comment on above: Performed By: #### A 1C #### [facility] [address] [place] [address] Dr. Ambrosio Ramirez Cholesterol in HDL [Mass/Vol] 71 mg/dL Critically high 40-60 [facility] Comment on above: Performed By: #### A 1C #### [facility] [address] [address] [address] Ambrosio Ramirez Cholesterol in LDL [Mass/Vol] 132.4 mg/dL Normal [facility] Comment on above: Performed By: #### A 1C #### [facility] [address] [place] [address] Dr. Ambrosio Ramirez Cholesterol.total/Cho lesterol in HDL [Mass ratio] 3.3 {ratio} Normal [facility] Comment on above: Performed By: #### A 1C #### [facility] [address] [address] [address] Ambrosio Ramirez HDL NORMAL > or = 60 mg/dl - LOW CARDIOVASCULAR RISK <40 mg/dl - HIGH CARDIOVASCULAR RISK Normal [facility] Comment on above: Performed By: #### A 1C #### [facility] [address] [address] [address] Ambrosio Ramriez LDL CALC NORMAL SEE BELOW Normal [facility] Comment on above: Result Comment: <100 mg/dl OPTIMAL 100 - 129 mg/dl NEAR OR ABOVE OPTIMAL 130 - 159 mg/dl BORDERLINE HIGH 160 - 189 mg/dl HIGH >190 mg/dl VERY HIGH Performed By: #### A 1C #### [facility] [address] [place] [address] Dr. Ambrosio Ramirez Triglyceride [Mass/Vol] 153 mg/dL Critically high <=150 [facility] Comment on above: Performed By: #### A 1C #### [facility] [address] [address] [address] Ambrosio Ramirez VLDL CALC 30.6 mg/dL Normal [facility] Comment on above: Performed By: #### A 1C #### [facility] [address] [address] [address] Ambrosio Ramirez PROF 14(COMP METB)on 023 Albumin [Mass/Vol] 4.2 g/dL Normal 3.4-5.0 [facility] Comment on above: Performed By: #### A 1C #### [facility] [address] [place] [address] Dr. Ambrosio Ramirez Albumin/Globulin [Mass ratio] 1.3 {ratio} Normal [facility] Comment on above: Performed By: #### A 1C #### [facility] [address] [address] [address] Ambrosio Ramirez ALP [Catalytic activity/Vol] 62 U/L Normal 46-116 [facility] Comment on above: Performed By: #### A 1C #### [facility] [address] [address] [address] Ambrosio Ramirez ALT [Catalytic activity/Vol] 27 U/L Normal 14-59 [facility] Comment on above: Performed By: #### A 1C #### [facility] [address] [address] [address] Ambrosio Ramirez Anion gap [Moles/Vol] 12.8 mmol/L Normal [facility] Comment on above: Performed By: #### A 1C #### [facility] [address] [address] [address] Ambrosio Ramirez AST [Catalytic activity/Vol] 39 U/L Critically high 15-37 [facility] Comment on above: Performed By: #### A 1C #### [facility] [address] [address] [address] Ambrosio Ramirez Bilirubin [Mass/Vol] 0.4 mg/dL Normal 0.2-1.0 [facility] Comment on above: Performed By: #### A 1C #### [facility] [address] [address] [address] Ambrosio Ramirez Calcium [Mass/Vol] 9.1 mg/dL Normal 8.5-10.1 [facility] Comment on above: Performed By: #### A 1C #### [facility] [address] [address] [address] Ambrosio Ramirez Chloride [Moles/Vol] 103 mmol/L Normal 98-107 [facility] Comment on above: Performed By: #### A 1C #### [facility] [address] [address] [address] Ambrosio Ramirez CO2 [Moles/Vol] 30.5 mmol/L Normal 21.0-32.0 [facility] Comment on above: Performed By: #### A 1C #### [facility] [address] [address] [address] Ambrosio Ramirez Creatinine [Mass/Vol] 0.54 mg/dL Critically low 0.55-1.02 [facility] Comment on above: Performed By: #### A 1C #### [facility] [address] [address] [address] Ambrosio Ramirez EGFR-AF LIBERIAN >60 Normal >=60 [facility] Comment on above: Performed By: #### A 1C #### [facility] [address] [place] [address] Dr. Ambrosio Ramirez EGFR-NON AF LIBERIAN >60 Normal >=60 [facility] Comment on above: Performed By: #### A 1C #### [facility] [address] [place] [address] Dr. Ambrosio Ramirez Globulin (S) [Mass/Vol] 3.3 g/dL Normal [facility] Comment on above: Performed By: #### A 1C #### [facility] [address] [address] [address] Ambrosio Ramirez Glucose [Mass/Vol] 88 mg/dL Normal 74-106 [facility] Comment on above: Performed By: #### A 1C #### [facility] [address] [place] [address] Dr. Ambrosio Ramirez Potassium [Moles/Vol] 4.3 mmol/L Normal 3.5-5.1 [facility] Comment on above: Performed By: #### A 1C #### [facility] [address] [place] [address] Dr. Ambrosio Ramirez Protein [Mass/Vol] 7.5 g/dL Normal 6.4-8.2 [facility] Comment on above: Performed By: #### A 1C #### [facility] [address] [place] [address] Dr. Ambrosio Ramirez Sodium [Moles/Vol] 142 mmol/L Normal 136-145 [facility] Comment on above: Performed By: #### A 1C #### [facility] [address] [place] [address] Dr. Ambrosio Ramirez Urea nitrogen [Mass/Vol] 9.0 mg/dL Normal 7.0-18.0 [facility] Comment on above: Performed By: #### A 1C #### [facility] [address] [place] [address] Dr. Ambrosio Ramirez Urea nitrogen/Creatinine [Mass ratio] 16.7 mg/mg Normal [facility] Comment on above: Performed By: #### A 1C #### [facility] [address] [place] [address] Dr. Ambrosio Ramirez TSHon 03-12-2022 TSH 1.934 uIU/mL Normal 0.358-3.[address] [facility] Comment on above: Performed By: #### A 1C #### [facility] [address] [address] [address] Ambrosio Ramirez XR TSPINE 3 VIEWSon [...] GEORGE CATALAN Date: 2022-03-12 17:07 Normal [facility] Covid-19 PCR ([facility])on SARS-CoV-2 (COVID-19) RNA JAYY+probe Ql (Unsp spec) Not detected Normal NOT DETECTED [facility] Comment on above: Result Comment: When [...] for this test is supported by the [employer] of [employer] and Human Service's declaration that [...] used). Performed By: #### C VDTBH #### [facility] [address] [address] [address] Ambrosio Ramirez INFLUENZA A AND B AGon 12-05 -2022 INFLUENZA A AG Negative Normal NEGATIVE SEE COMMENT [facility] Comment on above: Performed By: #### I NFLUAB #### [facility] [address] [place] [address] Dr. Ambrosio Ramirez INFLUENZA B AG Negative Normal NEGATIVE SEE COMMENT [facility] Comment on above: Performed By: #### I NFLUAB #### [facility] [address] [place] [address] Dr. Ambrosio Ramirez INTERNAL CONTROLS Within Normal Limits Normal Wi thin Normal Limits [facility] Comment on above: Performed By: #### I NFLUAB #### [facility] [address] [address] [address] Ambrosio Ramirez XR CHEST 2 Von [...] GEORGE ROWE Date: 2022-01-27 14:42 Normal [facility] RPR QUANTon 08-26-2021 Rapid Plasma Reagin, Quant Non-Reactive Normal NonRea<1:1 [facility] Comment on above: Result Comment: Plea se Note: This test does not meet current guidelines for screening and diagnosis of syphilis. This test is intended for following treatment response in patients being treated for syphilis infection. To screen for syphilis infection, a reflex cascade that includes both RPR and a treponema-specific assay should be utilized, such as Treponema pallidum (Syphilis) Screening [place] (446503) or Rapid Plasma Reagin (RPR) Test With Reflex to Quantitative RPR and Confirmatory Treponema pallidum Antibodies (130219). Performed By: #### R PRQ #### [facility] [address] [place] [address] Dr. Ambrosio Ramirez HEP B SURFACE ANTIGEN SCREEN on 08-24-2021 HBsAg Screen Negative Normal Negative [facility] Comment on above: Performed By: #### H BSANS #### [facility] [address] [address] [address] Ambrosio Ramirez HEPATITIS C ANTIBODYon 08-24 Hep C Virus Ab <0.1 Normal 0.0-0.9 [facility] Comment on above: Result Comment: Nega tive: [...] Hepatitis C Virus (HCV) RNA, Diagnosis, JAYY (897008) and Hepatitis C Virus (HCV) Antibody with reflex to Quantitative Real-time PCR (108862). Performed By: #### H CV #### [facility] [address] [place] [address] Dr. Ambrosio Ramirez INSULINon 08-23-2021 Insulin 5.0 uIU/mL Normal 2.6-24.9 [facility] Comment on above: Performed By: #### A 1C #### [facility] [address] [place] [address] Dr. Ambrosio Ramirze OCC BLD IMMUNO SCREENon OCCULT BLOOD Negative Normal NEGATIVE [facility] Comment on above: Performed By: #### O BSCRN #### [facility] [address] [place] [address] Dr. Ambrosio Ramirez CBC AUTO DIFFon 08-22-2021 BASO # 0.1 103/ul Normal 0.0-0.1 [facility] Comment on above: Performed By: #### O BSCRN #### [facility] [address] [place] [address] Dr. Ambrosio Ramirez Basophils/100 WBC (Bld) 1.0 % Normal 0.2-2.0 [facility] Comment on above: Performed By: #### O BSCRN #### [facility] [address] [place] [address] Dr. Ambrosio Ramirez EO # 0.1 103/ul Normal 0.0-0.7 [facility] Comment on above: Performed By: #### O BSCRN #### [facility] [address] [place] [address] Dr. Ambrosio Ramirez Eosinophils/100 WBC (Bld) 1.8 % Normal 0.9-7.0 [facility] Comment on above: Performed By: #### O BSCRN #### [facility] [address] [place] [address] Dr. Ambrosio Ramirez Erythrocyte distribution width (RBC) [Ratio] 11.9 % Normal 11.0-15.0 [facility] Comment on above: Performed By: #### O BSCRN #### [facility] [address] [place] [address] Dr. Ambrosio Ramirez Hematocrit (Bld) [Volume fraction] 48.6 % Critically high 36.0-48.0 [facility] Comment on above: Performed By: #### O BSCRN #### [facility] [address] [place] [address] Dr. Ambrosio Ramirez Hemoglobin (Bld) [Mass/Vol] 16.3 g/dL Critically high 12.0-16.0 [facility] Comment on above: Performed By: #### O BSCRN #### [facility] [address] [place] [address] Dr. Ambrosio Ramirez IG # 0.03 10e3/ul Normal 0.00-0.03 [facility] Comment on above: Performed By: #### O BSCRN #### [facility] [address] [place] [address] Dr. Ambrosio Ramirez IG % 0.6 % Critically high 0.0-0.5 [facility] Comment on above: Performed By: #### O BSCRN #### [facility] [address] [place] [address] Dr. Ambrosio Ramirez LYMPH # 2.4 103/ul Normal 1.2-3.8 [facility] Comment on above: Performed By: #### O BSCRN #### [facility] [address] [place] [address] Dr. Ambrosio Ramirez Lymphocytes/100 WBC (Bld) 46.9 % Normal 20.5-60.0 [facility] Comment on above: Performed By: #### O BSCRN #### [facility] [address] [place] [address] Dr. Ambrosio Ramirez MANUAL DIFF REQ NO Normal [facility] Comment on above: Performed By: #### O BSCRN #### [facility] [address] [place] [address] Dr. Ambrosio Ramirez MCH (RBC) [Entitic mass] 34.9 pg Critically high 26.7-34.0 [facility] Comment on above: Performed By: #### O BSCRN #### [facility] [address] [place] [address] Dr. Ambrosio Ramirez MCHC (RBC) [Mass/Vol] 33.5 g/dL Normal 29.9-35.2 [facility] Comment on above: Performed By: #### O BSCRN #### [facility] [address] [place] [address] Dr. Ambrosio Ramirez MCV (RBC) [Entitic vol] 104.1 fL Critically high 81.0-99.0 [facility] Comment on above: Performed By: #### O BSCRN #### [facility] [address] [place] [address] Dr. Ambrosio Ramirez MONO # 0.4 103/ul Normal 0.3-0.8 [facility] Comment on above: Performed By: #### O BSCRN #### [facility] [address] [place] [address] Dr. Ambrosio Ramirez Monocytes/100 WBC (Bld) 8.2 % Normal 1.7-12.0 [facility] Comment on above: Performed By: #### O BSCRN #### [facility] [address] [place] [address] Dr. Ambrosio Ramirez NEUT # 2.1 103/ul Normal 1.4-6.5 [facility] Comment on above: Performed By: #### O BSCRN #### [facility] [address] [place] [address] Dr. Ambrosio Ramirez Neutrophils/100 WBC (Bld) 41.5 % Critically low 43.0-75.0 [facility] Comment on above: Performed By: #### O BSCRN #### [facility] [address] [address] [address] Ambrosio Ramirez Platelet mean volume (Bld) [Entitic vol] 9.3 fL Critically low 9.5-13.5 [facility] Comment on above: Performed By: #### O BSCRN #### [facility] [address] [address] [address] Ambrosio Ramirez PLT 210 103/ul Normal 150-450 [facility] Comment on above: Performed By: #### O BSCRN #### [facility] [address] [place] [address] Dr. Ambrosio Ramirez RBC 4.67 106/ul Normal 4.20-5.40 [facility] Comment on above: Performed By: #### O BSCRN #### [facility] [address] [place] [address] Dr. Ambrosio Ramirez WBC 5.0 103/ul Normal 4.0-11.0 [facility] Comment on above: Performed By: #### O BSCRN #### [facility] [address] [place] [address] Dr. Ambrosio Ramirez FREE THYROXINE INDEX T7on -2021 FTI 2.72 Normal 1.30-4.50 [facility] Comment on above: Performed By: #### O BSCRN #### [facility] [address] [place] [address] Dr. Ambrosio Ramirez T3U 32.0 % Normal 30.0-39.0 [facility] Comment on above: Performed By: #### O BSCRN #### [facility] [address] [place] [address] Dr. Ambrosio Ramirez T4 [Mass/Vol] 8.50 ug/dL Normal 4.80-13.[address] [facility] Comment on above: Performed By: #### O BSCRN #### [facility] [address] [place], [place] [id number] Dr. Ambrosio Ramirez GLYCOHEMOGLOBIN A1Con 2021 ADA RECOMMENDATION SEE BELOW Normal [facility] Comment on above: Result Comment: ADA RECOMMENDED LIMIT 4.0 - 6.0 ADA THERAPEUTIC TARGET < 7.0 ACTION SUGGESTED > 7.0 Performed By: #### A 1C #### [facility] [address] [place] [address] Dr. Ambrosio Ramirez Glucose [Mass/Vol] 108 mg/dL Normal [facility] Comment on above: Performed By: #### A 1C #### [facility] [address] [place] [address] Dr. Ambrosio Ramirez HbA1c (Bld) [Mass fraction] 5.4 % Normal 4.5-6.2 [facility] Comment on above: Performed By: #### A 1C #### [facility] [address] [place] [address] Dr. Ambrosio Ramirez HIV 1/2 RAPID (EXPOSURE ONLY )on 08-22-2021 HIV AB Negative Normal [facility] Comment on above: Performed By: #### A 1C #### [facility] [address] [place] [address] Dr. Ambrosio Ramirez HIV AG Negative Normal [facility] Comment on above: Performed By: #### A 1C #### [facility] [address] [place] [address] Dr. Ambrosio Ramirez INTERNAL CONTROLS Within Normal Limits Normal Wi thin Normal Limits [facility] Comment on above: Performed By: #### A 1C #### [facility] [address] [place] [address] Dr. Ambrosio Ramirez RAPID HIV INFO SEE BELOW Normal [facility] Comment on above: Result Comment: This test is used for the initial screening of the exposure source. Confirmation of all results will be obtained through reference lab testing. Performed By: #### A 1C #### [facility] [address] [place] [address] Dr. Ambrosio Ramirez IRONon 08-22-2021 Iron [Mass/Vol] 137.0 ug/dL Normal 50.0-170.0 [facility] Comment on above: Performed By: #### I HAMLET #### [facility] [address] [address] [address] Ambrosio Ramirez LIPID PROFILEon 08-22-2021 CHOL-HDL RATIO NORM SEE BELOW Normal [facility] Comment on above: Result Comment: 3.3 - 4.4 LOW RISK 4.4 - 7.1 AVERAGE RISK 7.1 - 11.0 MODERATE RISK >11.0 HIGH RISK Performed By: #### O BSCRN #### [facility] [address] [address] [address] Ambrosio Ramirez Cholesterol [Mass/Vol] 251 mg/dL Critically high <=200 [facility] Comment on above: Performed By: #### O BSCRN #### [facility] [address] [address] [address] Ambrosio Ramirez Cholesterol in HDL [Mass/Vol] 67 mg/dL Critically high 40-60 [facility] Comment on above: Performed By: #### O BSCRN #### [facility] [address] [address] [address] Ambrosio Ramirez Cholesterol in LDL [Mass/Vol] 154.8 mg/dL Normal [facility] Comment on above: Performed By: #### O BSCRN #### [facility] [address] [address] [address] Ambrosio Ramirez Cholesterol.total/Cho lesterol in HDL [Mass ratio] 3.7 {ratio} Normal [facility] Comment on above: Performed By: #### O BSCRN #### [facility] [address] [address] [address] Ambrosio Ramirez HDL NORMAL > or = 60 mg/dl - LOW CARDIOVASCULAR RISK <40 mg/dl - HIGH CARDIOVASCULAR RISK Normal [facility] Comment on above: Performed By: #### O BSCRN #### [facility] [address] [address] [address] Ambrosio Ramirez LDL CALC NORMAL SEE BELOW Normal [facility] Comment on above: Result Comment: <100 mg/dl OPTIMAL 100 - 129 mg/dl NEAR OR ABOVE OPTIMAL 130 - 159 mg/dl BORDERLINE HIGH 160 - 189 mg/dl HIGH >190 mg/dl VERY HIGH Performed By: #### O BSCRN #### [facility] [address] [address] [address] Ambrosio Ramirez Triglyceride [Mass/Vol] 146 mg/dL Normal <=150 [facility] Comment on above: Performed By: #### O BSCRN #### [facility] [address] [address] [address] Ambrosio Ramirez VLDL CALC 29.2 mg/dL Normal [facility] Comment on above: Performed By: #### O BSCRN #### [facility] [address] [address] [address] Ambrosio Ramirez PROF 14(COMP METB)on 022 Albumin [Mass/Vol] 4.3 g/dL Normal 3.4-5.0 [facility] Comment on above: Performed By: #### O BSCRN #### [facility] [address] [place] [address] Dr. Ambrosio Ramirez Albumin/Globulin [Mass ratio] 1.2 {ratio} Normal [facility] Comment on above: Performed By: #### O BSCRN #### [facility] [address] [place] [address] Dr. Ambrosio Ramirez ALP [Catalytic activity/Vol] 57 U/L Normal 46-116 [facility] Comment on above: Performed By: #### O BSCRN #### [facility] [address] [place] [address] Dr. Ambrosio Ramirez ALT [Catalytic activity/Vol] 56 U/L Normal 14-59 [facility] Comment on above: Performed By: #### O BSCRN #### [facility] [address] [place] [address] Dr. Ambrosio Ramirez Anion gap [Moles/Vol] 11.5 mmol/L Normal [facility] Comment on above: Performed By: #### O BSCRN #### [facility] [address] [place] [address] Dr. Ambrosio Ramirez AST [Catalytic activity/Vol] 75 U/L Critically high 15-37 [facility] Comment on above: Performed By: #### O BSCRN #### [facility] [address] [address] [address] Ambrosio Ramirez Bilirubin [Mass/Vol] 0.4 mg/dL Normal 0.2-1.0 [facility] Comment on above: Performed By: #### O BSCRN #### [facility] [address] [place] [address] Dr. Ambrosio Ramirez Calcium [Mass/Vol] 8.7 mg/dL Normal 8.5-10.1 [facility] Comment on above: Performed By: #### O BSCRN #### [facility] [address] [address] [address] Ambrosio Ramirez Chloride [Moles/Vol] 105 mmol/L Normal 98-107 [facility] Comment on above: Performed By: #### O BSCRN #### [facility] [address] [place] [address] Dr. Ambrosio Ramirez CO2 [Moles/Vol] 30.3 mmol/L Normal 21.0-32.0 [facility] Comment on above: Performed By: #### O BSCRN #### [facility] [address] [place] [address] Dr. Ambrosio Ramirez Creatinine [Mass/Vol] 0.67 mg/dL Normal 0.55-1.02 [facility] Comment on above: Performed By: #### O BSCRN #### [facility] [address] [place] [address] Dr. Ambrosio Ramirez EGFR-AF LIBERIAN >60 Normal >=60 [facility] Comment on above: Performed By: #### O BSCRN #### [facility] [address] [place] [address] Dr. Ambrosio Ramirez EGFR-NON AF LIBERIAN >60 Normal >=60 [facility] Comment on above: Performed By: #### O BSCRN #### [facility] [address] [place] [address] Dr. Ambrosio Ramirez Globulin (S) [Mass/Vol] 3.7 g/dL Normal [facility] Comment on above: Performed By: #### O BSCRN #### [facility] [address] [address] [address] Ambrosio Ramirez Glucose [Mass/Vol] 93 mg/dL Normal 74-106 [facility] Comment on above: Performed By: #### O BSCRN #### [facility] [address] [address] [address] Ambrosio Ramirez Potassium [Moles/Vol] 4.8 mmol/L Normal 3.5-5.1 [facility] Comment on above: Performed By: #### O BSCRN #### [facility] [address] [address] [address] Ambrosio Ramirez Protein [Mass/Vol] 8.0 g/dL Normal 6.4-8.2 [facility] Comment on above: Performed By: #### O BSCRN #### [facility] [address] [place] [address] Dr. Ambrosio Ramirez Sodium [Moles/Vol] 142 mmol/L Normal 136-145 [facility] Comment on above: Performed By: #### O BSCRN #### [facility] [address] [address] [address] Ambrosio Ramirez Urea nitrogen [Mass/Vol] 8.0 mg/dL Normal 7.0-18.0 [facility] Comment on above: Performed By: #### O BSCRN #### [facility] [address] [place] [address] Dr. Ambrosio Ramirez Urea nitrogen/Creatinine [Mass ratio] 11.9 mg/mg Normal [facility] Comment on above: Performed By: #### O BSCRN #### [facility] [address] [address] [address] Ambrosio Ramirez TSHon 08-22-2021 TSH 2.117 uIU/mL Normal 0.358-3.740 [facility] Comment on above: Performed By: #### O BSCRN #### [facility] [address] [place] [address] Dr. Ambrosio Ramirez XR CSPINE MIN 4 [...] Cervical fusion hardware with no mechanical failure [id number] degenerative changes of the cervical thoracic spine Electronically authenticated by: GEORGE ROWE Date: 2021-08-22 21:07 Normal [facility] Vital Signs Date Time Vital Sign Value Performing Clinician Facility 05-09-2022 10:14-0400 Diastolic blood pressure 85 mm[Hg] OYSTER PICKER-C Ama Edwards Work Phone: [facility] 05-09-2022 10:14-0400 Heart rate 99 /min OYSTER PICKER-C Ama Edwards Work Phone: [facility] 05-09-2022 10:14-0400 Respiratory rate 18 /min OYSTER PICKER-C Ama Edwards Work Phone: [facility] 05-09-2022 10:14-0400 SaO2% (BldA) [Mass fraction] 99 % OYSTER PICKER-C Ama Edwards Work Phone: [facility] 05-09-2022 10:14-0400 Systolic blood pressure 124 mm[Hg] OYSTER PICKER-C Ama Edwards Work Phone: [facility] 05-09-2022 08:04-0400 Body height 180.34 cm OYSTER PICKER-C Ama Edwards Work Phone: [facility] 05-09-2022 08:04-0400 Body weight 58.96 kg OYSTER PICKER-C Ama Edwards Work Phone: [facility] 05-01-2022 11:15-0500 Body height Imad Asaad Other [facility] Other 05-01-2022 11:15-0500 Body mass index (BMI) [Ratio] 18.13 kg/m2 Imad Asaad Other [facility] Other 05-01-2022 11:15-0500 Body weight 58.97 kg Imad Asaad Other [facility] Other 05-01-2022 11:15-0500 Diastolic blood pressure 102 mm[Hg] Imad Asaad Other [facility] Other 05-01-2022 11:15-0500 Respiratory rate 16 /min Imad Asaad Other [facility] Other 05-01-2022 11:15-0500 Systolic blood pressure 158 mm[Hg] Imad Asaad Other [facility] Other Encounters Encounter Date Encounter Type Care Provider Facility Start: 07-06-2023 End: 07-07-2023 ambulatory Manuel Reynaga MD Facility: [facility] Start: 12-15-2022 End: 12-16-2022 ambulatory Manuel Reynaga MD Facility: [facility] Start: 11-17-2022 End: 11-18-2022 ambulatory Manuel Reynaga MD Facility: [facility] Start: 11-10-2022 End: 11-11-2022 ambulatory Manuel Reynaga MD Facility: [facility] Start: 05-09-2022 End: 05-09-2022 ambulatory Ama Edwards Facility:[facility] Start: 05-09-2022 End: 05-09-2022 Admission to same day surgery center OYSTER PICKER-C Ama Edwards Work Phone: [facility] Work Phone: Start: 05-09-2022 End: 05-09-2022 ambulatory OYSTER PICKER-C Ama Edwards Work Phone: [facility] Work Phone: Start: 05-02-2022 End: 05-02-2022 ambulatory Imad Asaad Other [facility] Other Start: 05-02-2022 Telephone encounter Imad Asaad [facility] Start: 05-01-2022 End: 05-01-2022 ambulatory Imad Asaad Other [facility] Other Start: 05-01-2022 Office consultation new/estab patient [...] Procedure Detail Performing Clinician Start: 05-09-2022 Esophagogastroduodenoscopy OYSTER PICKER-C Ama patel Work Phone: Screening for malign ant neoplasm of colon Imad Asaad Other Plan of Treatment Date Care Activity Detail Author Start: 05-09-2022 [facility] Patient Education Colon Polyps H emorrhoids (DC) Diverticulosis (DC) Gastritis (DC) [facility] Work Phone: Payers Date Payer Category Payer Self-pay 2022 Unknown 1960 Unknown [id number] 2.16.84 [id number] 1960 Unknown [id number] 2.16.84 [id number] 1960 Unknown [id number] 2.16.84 [id number] 1960 Unknown [id number] 2.16.84 [id number] 1960 Unknown [id number] 2.16.84 [id number] 1960 Unknown [id number] 2.16.84 [id number] 1960 Unknown [id number] 2.16.84 [id number] 1960 Unknown [id number] 2.16. [id number] 1960 Unknown [id number] 2.16. [id number] 1960 Unknown [id number] 2.16. [id number] 1960 Unknown [id number] 2.16. [id number] 1957 Medicare [id number] 1957 Unknown [id number] 1957 Unknown [id number] 1957 Unknown [id number] Unknown [id number] 2.16.8 [id number] Social History Date Type Detail Facility Start: 05-09-2022 Tobacco smoking status [facility] Smoker (finding) [facility] Start: 1960 Sex Assigned At Female F [facility] Sex Assigned At Sex Assigned At Bir th [facility] Other Goals Date Patient Goal Desired Activity /State Procedure note 05-09-2022 Note Date & Type Note Facility 05-09-2022 Procedure note [facility] Evaluation note 05-01-2022 Note Date & Type Note Facility 05-01-2022 Evaluation note Encounter Date Diagnosis Assessment Notes Apr, Dysphagia (ICD-10 - R13.10) Apr, Weight loss (ICD-10 - R63.4) Apr, Colon cancer screening (ICD-10 - Z12.11) [facility] Other Evaluation note Note Date & Type Note Facility Evaluation note No assessment information [facility] Work Phone: Evaluation note Note Date & Type Note Facility Evaluation note No Information [facility] Other History general Narrative - Reported Note Date & Type Note Facility History general Narrative - Reported Type Medical History Anxiety/Depression Surgical History Neck surgery Surgical History Tonsillectomy Hospitalization History See above [facility] Other Hospital Discharge instructions Note Date & [...] NOT operate machinery such as power tools, [employer] mowers, snow blowers, sewing machines, etc. for [...] NOT operate machinery such as power tools, [employer] mowers, snow blowers, sewing machines, etc. for [...] -Follow up with PCP. - Office number [phone]. [facility] Work Phone: Chief Complaint and Reason [...] and content) [facility]HEA, WEIGHT LOSS AND DYSPHAGIAClinical INFORMATION SOURCE (unrecogn ized section and content) DATE CREATED AUTHOR 05/20/2022 [facility] DATE CREATED AUTHOR AUTHOR'S ORGANIZ ATION 07/02/2022 [facility] DATE CREATED AUTHOR AUTHOR'S ORGANIZ ATION 07/09/2023 [facility] FOR RECORDS PERTAINING TO PATIENTS [...] BE BASED ON THE PRIMARY CLINICAL RECORDS. [employer] provides no warranty or guarantee of the accuracy or completeness of information in this document.
== END 2023-07-15 12:42 | disposition home or self-care (01) ==
LOC: PM 12:41
PROVIDERS: PCP Nurse Practitioner Family; Visit Provider Nurse Practitioner
DX: M54.12 Radiculopathy, cervical region (principal); M96.1 Postlaminectomy syndrome, not elsewhere classified; M47.812 Spondylosis without myelopathy or radiculopathy, cervical region; M48.062 Spinal stenosis, lumbar region with neurogenic claudication; M79.18 Myalgia, other site
CPT/HCPCS: G0463

== ENCOUNTER 2023-07-24 06:46 | Outpatient (OUT) | payer MEDICARE, OTHER, MEDICAID, SELFPAY ==
--- NOTE | 2023-07-24 06:48 | MR_ITS ---
The [address] [address] Patient Name: CARLA ABDI MRN: [facility]:[id number] date: 1960 Sex: F Assigned Patient Location: MRI Current Patient Location: MRI Accession/Order Number: [id number] Exam Date: 07/24/2023 06:55 Report Date: 07/26/2023 08:01 At the request of: AISSATOU ANGELO Procedure: MR cervical spine wo con EXAM: MR CERVICAL SPINE WO CON COMPARISON: Cervical spine x-rays from 07/06/2023. HISTORY: [id number] neck pain with history of cervical fusion. Cervical pain for one year with tingling and numbness in the arms and hands. TECHNIQUE: Multiplanar and multisequence imaging of the cervical spine was performed without contrast. FINDINGS: There is postsurgical change status-post anterior cervical fusion and discectomy from C4 through C7. There has also been prior laminectomy and posterior fusion from C4 through C7. There is artifact related to the hardware degrading evaluation. There is also mild motion artifact. There is straightening of the cervical lordosis. No acute fracture is identified in the cervical spine. There is mild to moderate degenerative disc disease at C2-C3 and C3-C4 as well as within the visualized upper thoracic spine and at C7-T1 demonstrated by disc space narrowing and endplate spurring along with disc desiccation. No acute abnormality is identified in the visualized posterior fossa or at the craniocervical junction. No convincing cord signal abnormality is identified in the cervical cord. C2-C3: There is osseous fusion of the facet joint on the right. No focal disc herniation is evident. There is no central or foraminal stenosis. C3-C4: A left uncovertebral/foraminal disc-osteophyte complex results in mild left foraminal narrowing. There is a tortuous vertebral artery which tracks towards the neural foramen on the left at this level. No central stenosis is evident. C4-C5: There has been prior laminectomy as well as posterior and anterior interbody fusion. No central or foraminal stenosis is evident. C5-C6: There has been prior laminectomy as well as posterior and anterior interbody fusion. There is endplate spurring and suspected mild foraminal narrowing without central stenosis. C6-C7: There has been prior laminectomy with posterior and anterior interbody fusion. There is uncovertebral spurring and suspected mild foraminal narrowing without central stenosis. C7-T1: There appears to be moderate facet arthropathy and mild endplate spurring without central or foraminal stenosis. MR/MR cervical spine wo con IMPRESSION: 1. Postsurgical change with prior laminectomy and posterior fusion from C4 through C7 as well as anterior cervical fusion and discectomy from C4 through C7. 2. There is uncovertebral spurring at C5-C6 and C6-C7 with suspected mild foraminal narrowing at these levels. 3. A left uncovertebral/foraminal disc osteophyte complex at C3-C4 results in mild left foraminal narrowing. 4. No acute fracture. No central stenosis. Electronically authenticated by: ANABEL ROD Date: 07/26/2023 08:01
--- OUTSIDE RECORDS SUMMARY | 2023-07-24 06:49 | XMS_ITS ---
Patient Summarization (C-CDA 2.1 CCD) Created on: July 24, 2023 Nancy Joyce : 1960 Sex: Female Author Organization Sample organization Care Team Providers Care Cue Selector Name Role Phone MD Nesha Bryant Attending Provider [phone] JIE Edwards Primary Care Provider Asaad, Imad [...] AMA Admitting Unavailable JERRY, AMA Attending Unavailable JUAN ANTONIOEBSAUL, DR DENNY Franz Consulting Unavailable JERRY, AMA Primary Care Unavailable JERRY, AMA Consulting Unavailable George Catalan Unavailable JERRY, AMA Primary Care Unavailable JERRY, AMA Attending Unavailable JERRY, AMA Primary Care Unavailable DR GEORGE ROWE V Consulting Unavailable JERRY, AMA Admitting Unavailable JERRY, AMA Consulting Unavailable Juhi LEON, Hollirius Yoo Attending Unavailable Juhi LEON, Andrius Naila Attending Unavailable Juhi LEON, Andrius Naila Attending Unavailable Juhi LEON, Andrius Yoo Attending Unavailable Encounters Encounter Date Encounter Type Care Provider Facility Start: 07-06-2023 End: 07-07-2023 ambulatory Manuel Reynaga MD Facility: [facility] Start: 12-15-2022 End: 12-16-2022 ambulatory Manuel Reynaga MD Facility: [facility] Start: 11-17-2022 End: 11-18-2022 ambulatory Manuel Reynaga MD Facility:[facility] Start: 11-10-2022 End: 11-11-2022 ambulatory Manuel Reynaga MD Facility:[facility] Start: 05-09-2022 End: 05-09-2022 ambulatory Ama Edwards Facility:[facility] Start: 05-09-2022 End: 05-09-2022 Admission to same day surgery center HR GENERALIST-C Ama Edwards Work Phone: [facility] Work Phone: Start: 05-09-2022 End: 05-09-2022 ambulatory HR GENERALIST-C Ama Edwards Work Phone: [facility] Work Phone: Start: 05-02-2022 End: 05-02-2022 ambulatory Imad Asaad Other [employer] Other Start: 05-02-2022 Telephone encounter Imad Asaad [facility] Start: 05-01-2022 End: 05-01-2022 ambulatory Imad Asaad Other [place] [facility] Other Start: 05-01-2022 Office consultation new/estab patient [...] 08-22-2021 End: 08-23-2021 ambulatory AMA EDWARDS Facility:[facility] Goals Date Patient Goal Desired Activity /State Medications Current Medications Medication Drug Class(es) Dates [...] 30 days Apr, Active polyethylene glycol 3350 893320 mg / potassium chloride 2970 mg / sodium bicarbonate 6740 mg / sodium chloride 5860 mg / sodium sulfate 48721 mg powder for oral solution (2 sources) Osmotic Laxative Start: 05-01-2022 PEG-3350/Electrol ytes 236 GM as directed Orally once daily for 1 days Apr, Active Payers Date Payer Category Payer Self-pay 2022 Unknown 1960 Unknown [id number] 2.16.84 [id number] 1960 Unknown [id number] 2.16.84 [id number] 1960 Unknown [id number] 2.16.84 [id number] 1960 Unknown [id number] 2.16.84 [id number] 1960 Unknown [id number] 2.16.84 [id number] 1960 Unknown [id number] 2.16.84 0.1.714010.3.579.2.593 1960 Unknown [id number] 2.16.84 [id number] 1960 Unknown [id number] 2.16. [id number] 1960 Unknown [id number] 2.16. [id number] 1960 Unknown [id number] 2.16. [id number] 1960 Unknown [id number] 2.16. [id number] 1957 Medicare [id number] 1957 Unknown [id number] 1957 Unknown [id number] 1957 Unknown [id number] Unknown [id number] 2.16.8 [id number] Plan of Treatment Date Care Activity Detail Author Start: 05-09-2022 [facility] Patient Education Colon Polyps H emorrhoids (DC) Diverticulosis (DC) Gastritis (DC) [facility] Work Phone: Problems Active Problems Problem Classification Problem Date [...] [CONTACT W/AND (SUSP) EXPOS COVID-19] Onset: 01-27-2022 Procedures Date Procedure Procedure Detail Performing Clinician Start: 05-09-2022 Esophagogastroduodenoscopy JIE patel Work Phone: Screening for malign ant neoplasm of colon Nesha Bryant Other Results Test Name Value Interpretation Reference Range Facility [facility] 05-09-2022 L Specimen: [id number] Received: 05/09/22 Status: EDUARD Zaragoza Num: [id number] Spec Type: Surgical Subm Dr: Nesha Bryant MD Tissues: A Gastric Biopsy (GASTRIC) B Esophagus Biopsy (DISTAL ESOPHAGUS) C Esophagus Biopsy (PROXIMAL ESOPHAGUS) D Colon Biopsy (CECAL POLYP) E Colon Biopsy (SIGMOID POLYP) F Colon Biopsy (RECTAL POLYPS X3) Procedures: ROSI/Barbara Gross/Lindsay L4/6 Age/ Patient Sex Location Account Attending Physician Nancy Joyce 61/F [id number] Nesha Bryant MD SPEC NUM: [id number] RECD: 05/09/22 STATUS: EDUARD ZARAGOZA NUM: [id number] KATY: 05/09/22- SUBM DR: Nesha Bryant MD ENTERED: 05/09/22 [facility] DR: SPEC TYPE: Surgical DEPT: S ORDERED: HE/12, Gross/Micro L4/6 ORDERED: HE/12, Gross/Micro L4/6 Pathological Diagnosis A. Stomach, gastric, [...] mucosal fold. - Negative for adenoma/dysplasia. Specimen: [id number] Received: 05/09/22 Status: EDUARD Zaragoza Num: [id number] Spec Type: Surgical Subm Dr: Nesha Bryant MD Tissues: A Gastric Biopsy (GASTRIC) B Esophagus Biopsy (DISTAL ESOPHAGUS) C Esophagus Biopsy (PROXIMAL ESOPHAGUS) D Colon Biopsy (CECAL POLYP) E Colon Biopsy (SIGMOID POLYP) F Colon Biopsy (RECTAL POLYPS X3) Procedures: , Gross/Micro L4/6 Patient: Nancy Joyce [id number] (Continued) Specimen: [id number] Received: 05/09/22 (Continued) Pathological Diagnosis (Continued) Signed (signature on file) Carin Oliveros MD 05/12/22 1130 Specimen: [id number] Received: 05/09/22 Status: EDUARD Zaragoza Num: [id number] Spec Type: Surgical Subm Dr: Nesha Bryant MD Tissues: A Gastric Biopsy (GASTRIC) B Esophagus Biopsy (DISTAL ESOPHAGUS) C Esophagus Biopsy (PROXIMAL ESOPHAGUS) D Colon Biopsy (CECAL POLYP) E Colon Biopsy (SIGMOID POLYP) F Colon Biopsy (RECTAL POLYPS X3) Procedures: , Gross/Micro L4/6 Patient: Nancy Joyce [id number] (Continued) Specimen: [id number] Received: 05/09/22-1039 (Continued) Pathological Diagnosis (Continued) E. Colon, sigmoid, [...] labeled 1. (more content not included)... Normal [facility] XR MODIFIED BARIUM SWALLOWon 03-25-2022 XR [...] by: DENNY RINCON Date: 2022-03-25 13:53 Normal [facility] INSULINon 03-13-2022 Insulin 3.9 uIU/mL Normal 2.6-24.[address] [facility] Comment on above: Performed By: #### O BSCRN #### [facility] [address] [place] [address] Dr. Ambrosio Ramirez XR CSPINE MIN 4 [...] DENNY RINCON Date: 2022-03-13 08:09 Normal [facility] CBC AUTO DIFFon 03-12-2022 BASO # 0.0 103/ul Normal 0.0-0.1 [facility] Comment on above: Performed By: #### C BC #### [facility] [address] [address] [address] Ambrosio Ramirez Basophils/100 WBC (Bld) 0.7 % Normal 0.2-2.0 [facility] Comment on above: Performed By: #### C BC #### [facility] [address] [place] [address] Dr. Ambrosio Ramirez EO # 0.1 103/ul Normal 0.0-0.7 [facility] Comment on above: Performed By: #### C BC #### [facility] [address] [place] [address] Dr. Ambrosio Ramirez Eosinophils/100 WBC (Bld) 0.9 % Normal 0.9-7.0 [facility] Comment on above: Performed By: #### C BC #### [facility] [address] [place] [address] Dr. Ambrosio Ramirez Erythrocyte distribution width (RBC) [Ratio] 12.3 % Normal 11.0-15.0 [facility] Comment on above: Performed By: #### C BC #### [facility] [address] [place] [address] Dr. Ambrosio Ramirez Hematocrit (Bld) [Volume fraction] 46.0 % Normal 36.0-48.0 [facility] Comment on above: Performed By: #### C BC #### [facility] [address] [place] [address] Dr. Ambrosio Ramirez Hemoglobin (Bld) [Mass/Vol] 15.2 g/dL Normal 12.0-16.[address] [facility] Comment on above: Performed By: #### C BC #### [facility] [address] [place] [address] Dr. Ambrosio Ramirez IG # 0.03 10e3/ul Normal 0.00-0.03 [facility] Comment on above: Performed By: #### C BC #### [facility] [address] [place] [address] Dr. Ambrosio Ramirez IG % 0.5 % Normal 0.0-0.5 [facility] Comment on above: Performed By: #### C BC #### [facility] [address] [place] [address] Dr. Ambrosio Ramirez LYMPH # 2.0 103/ul Normal 1.2-3.8 [facility] Comment on above: Performed By: #### C BC #### [facility] [address] [place] [address] Dr. Ambrosio Ramirez Lymphocytes/100 WBC (Bld) 35.0 % Normal 20.5-60.0 [facility] Comment on above: Performed By: #### C BC #### [facility] [address] [place] [address] Dr. Ambrosio Ramirez MANUAL DIFF REQ NO Normal [facility] Comment on above: Performed By: #### C BC #### [facility] [address] [place] [address] Dr. Ambrosio Ramirez MCH (RBC) [Entitic mass] 33.8 pg Normal 26.7-34.0 [facility] Comment on above: Performed By: #### C BC #### [facility] [address] [place] [address] Dr. Ambrosio Ramirez MCHC (RBC) [Mass/Vol] 33.0 g/dL Normal 29.9-35.2 [facility] Comment on above: Performed By: #### C BC #### [facility] [address] [place] [address] Dr. Ambrosio Ramirez MCV (RBC) [Entitic vol] 102.2 fL Critically high 81.0-99.0 [facility] Comment on above: Performed By: #### C BC #### [facility] [address] [place] [address] Dr. Ambrosio Ramirez MONO # 0.4 103/ul Normal 0.3-0.8 [facility] Comment on above: Performed By: #### C BC #### [facility] [address] [place] [address] Dr. Ambrosio Ramirez Monocytes/100 WBC (Bld) 7.2 % Normal 1.7-12.0 [facility] Comment on above: Performed By: #### C BC #### [facility] [address] [place] [address] Dr. Ambrosio Ramirez NEUT # 3.2 103/ul Normal 1.4-6.5 [facility] Comment on above: Performed By: #### C BC #### [facility] [address] [place] [address] Dr. Ambrosio Ramirez Neutrophils/100 WBC (Bld) 55.7 % Normal 43.0-75.0 [facility] Comment on above: Performed By: #### C BC #### [facility] [address] [place] [address] Dr. Ambrosio Ramirez Platelet mean volume (Bld) [Entitic vol] 9.1 fL Critically low 9.5-13.5 [facility] Comment on above: Performed By: #### C BC #### [facility] [address] [place] [address] Dr. Ambrosio Ramirez PLT 234 103/ul Normal 150-450 [facility] Comment on above: Performed By: #### C BC #### [facility] [address] [place] [address] Dr. Ambrosio Ramirez RBC 4.50 106/ul Normal 4.20-5.40 [facility] Comment on above: Performed By: #### C BC #### [facility] [address] [place] [address] Dr. Ambrosio Ramirez WBC 5.7 103/ul Normal 4.0-11.[address] [facility] Comment on above: Performed By: #### C BC #### [facility] [address] [place] [address] Dr. Ambrosio Ramirez FREE THYROXINE INDEX T7on FTI 2.41 Normal 1.30-4.50 [facility] Comment on above: Performed By: #### A 1C #### [facility] [address] [place] [address] Dr. Ambrosio Ramirez T3U 33.0 % Normal 30.0-39.0 [facility] Comment on above: Performed By: #### A 1C #### [facility] [address] [address] [address] Ambrosio Ramirez T4 [Mass/Vol] 7.30 ug/dL Normal 4.80-13.90 [facility] Comment on above: Performed By: #### A 1C #### [facility] [address] [address] [address] Ambrosio Ramirez GLYCOHEMOGLOBIN A1Con 2022 ADA RECOMMENDATION SEE BELOW Normal [facility] Comment on above: Result Comment: ADA RECOMMENDED LIMIT 4.0 - 6.0 ADA THERAPEUTIC TARGET < 7.0 ACTION SUGGESTED > 7.0 Performed By: #### A 1C #### [facility] [address] [place] [address] Dr. Ambrosio Ramirez Glucose [Mass/Vol] 100 mg/dL Normal [facility] Comment on above: Performed By: #### A 1C #### [facility] [address] [place] [address] Dr. Ambrosio Ramirez HbA1c (Bld) [Mass fraction] 5.1 % Normal 4.5-6.2 [facility] Comment on above: Performed By: #### A 1C #### [facility] [address] [place] [address] Dr. Ambrosio Ramirez IRONon 03-12-2022 Iron [Mass/Vol] 148.0 ug/dL Normal 50.0-170.0 [facility] Comment on above: Performed By: #### O BSCRN #### [facility] [address] [place] [address] Dr. Ambrosio Ramirez LIPID PROFILEon 03-12-2022 CHOL-HDL RATIO NORM SEE BELOW Normal [facility] Comment on above: Result Comment: 3.3 - 4.4 LOW RISK 4.4 - 7.1 AVERAGE RISK 7.1 - 11.0 MODERATE RISK >11.0 HIGH RISK Performed By: #### A 1C #### [facility] [address] [place] [address] Dr. Ambrosio Ramirez Cholesterol [Mass/Vol] 234 mg/dL Critically high <=200 [facility] Comment on above: Performed By: #### A 1C #### [facility] [address] [address] [address] Ambrosio Ramirez Cholesterol in HDL [Mass/Vol] 71 mg/dL Critically high 40-60 [facility] Comment on above: Performed By: #### A 1C #### [facility] [address] [place], [place] [address] Dr. Ambrosio Ramirez Cholesterol in LDL [Mass/Vol] 132.4 mg/dL Normal [facility] Comment on above: Performed By: #### A 1C #### [facility] [address] [address] [address] Ambrosio Ramirez Cholesterol.total/Cho lesterol in HDL [Mass ratio] 3.3 {ratio} Normal [facility] Comment on above: Performed By: #### A 1C #### [facility] [address] [place] [address] Dr. Ambrosio Ramirez HDL NORMAL > or = 60 mg/dl - LOW CARDIOVASCULAR RISK <40 mg/dl - HIGH CARDIOVASCULAR RISK Normal [facility] Comment on above: Performed By: #### A 1C #### [facility] [address] [address] [address] Ambrosio Ramirez LDL CALC NORMAL SEE BELOW Normal [facility] Comment on above: Result Comment: <100 mg/dl OPTIMAL 100 - 129 mg/dl NEAR OR ABOVE OPTIMAL 130 - 159 mg/dl BORDERLINE HIGH 160 - 189 mg/dl HIGH >190 mg/dl VERY HIGH Performed By: #### A 1C #### [facility] [address] [address] [address] Ambrosio Ramirez Triglyceride [Mass/Vol] 153 mg/dL Critically high <=[address] [facility] Comment on above: Performed By: #### A 1C #### [facility] [address] [address] [address] Ambrosio Ramirez VLDL CALC 30.6 mg/dL Normal [facility] Comment on above: Performed By: #### A 1C #### [facility] [address] [address] [address] Ambrosio Ramirez PROF 14(COMP METB)on 01-18-2 023 Albumin [Mass/Vol] 4.2 g/dL Normal 3.4-5.0 [facility] Comment on above: Performed By: #### A 1C #### [facility] [address] [place] [address] Dr. Ambrosio Ramirez Albumin/Globulin [Mass ratio] 1.3 {ratio} Normal [facility] Comment on above: Performed By: #### A 1C #### [facility] [address] [place] [address] Dr. Ambrosio Ramirez ALP [Catalytic activity/Vol] 62 U/L Normal 46-116 [facility] Comment on above: Performed By: #### A 1C #### [facility] [address] [place] [address] Dr. Ambrosio Ramirez ALT [Catalytic activity/Vol] 27 U/L Normal 14-59 [facility] Comment on above: Performed By: #### A 1C #### [facility] [address] [place] [address] Dr. Ambrosio Ramirez Anion gap [Moles/Vol] 12.8 mmol/L Normal [facility] Comment on above: Performed By: #### A 1C #### [facility] [address] [place] [address] Dr. Ambrosio Ramirez AST [Catalytic activity/Vol] 39 U/L Critically high 15-37 [facility] Comment on above: Performed By: #### A 1C #### [facility] [address] [place] [address] Dr. Ambrosio Ramirez Bilirubin [Mass/Vol] 0.4 mg/dL Normal 0.2-1.0 [facility] Comment on above: Performed By: #### A 1C #### [facility] [address] [place] [address] Dr. Ambrosio Ramirez Calcium [Mass/Vol] 9.1 mg/dL Normal 8.5-10.1 [facility] Comment on above: Performed By: #### A 1C #### [facility] [address] [place] [address] Dr. Ambrosio Ramirez Chloride [Moles/Vol] 103 mmol/L Normal 98-107 [facility] Comment on above: Performed By: #### A 1C #### [facility] [address] [address] [address] Ambrosio Ramirez CO2 [Moles/Vol] 30.5 mmol/L Normal 21.0-32.0 [facility] Comment on above: Performed By: #### A 1C #### [facility] [address] [address] [address] Ambrosio Ramirez Creatinine [Mass/Vol] 0.54 mg/dL Critically low 0.55-1.[address] [facility] Comment on above: Performed By: #### A 1C #### [facility] [address] [address] [address] Ambrosio Ramirez EGFR-AF VIETNAMESE >60 Normal >=60 [facility] Comment on above: Performed By: #### A 1C #### [facility] [address] [place] [address] Dr. Ambrosio Ramirez EGFR-NON AF VIETNAMESE >60 Normal >=[address] [facility] Comment on above: Performed By: #### A 1C #### [facility] [address] [place] [address] Dr. Ambrosio Ramirez Globulin (S) [Mass/Vol] 3.3 g/dL Normal [facility] Comment on above: Performed By: #### A 1C #### [facility] [address] [address] [address] Ambrosio Ramirez Glucose [Mass/Vol] 88 mg/dL Normal 74-106 [facility] Comment on above: Performed By: #### A 1C #### [facility] [address] [place] [address] Dr. Ambrosio Ramirez Potassium [Moles/Vol] 4.3 mmol/L Normal 3.5-5.[address] [facility] Comment on above: Performed By: #### A 1C #### [facility] [address] [place] [address] Dr. Ambrosio Ramirez Protein [Mass/Vol] 7.5 g/dL Normal 6.4-8.2 [facility] Comment on above: Performed By: #### A 1C #### [facility] [address] [address] [address] Ambrosio Ramirez Sodium [Moles/Vol] 142 mmol/L Normal 136-145 [facility] Comment on above: Performed By: #### A 1C #### [facility] [id number] Ambrosio Ramirez Urea nitrogen [Mass/Vol] 9.0 mg/dL Normal 7.0-18.0 [facility] Comment on above: Performed By: #### A 1C #### [facility] [address] [address] [address] Ambrosio Ramirez Urea nitrogen/Creatinine [Mass ratio] 16.7 mg/mg Normal [facility] Comment on above: Performed By: #### A 1C #### [facility] [address] [address] [address] Ambrosio Ramirez TSHon 03-12-2022 TSH 1.934 uIU/mL Normal 0.358-3.740 [facility] Comment on above: Performed By: #### A 1C #### [facility] [address] [place] [address] Dr. Ambrosio Ramirez XR TSPINE 3 VIEWSon [...] GEORGE CATALAN Date: 2022-03-12 17:07 Normal [facility]on SARS-CoV-2 (COVID-19) RNA JAYY+probe Ql (Unsp spec) Not detected Normal NOT DETECTED [facility] Comment on above: Result Comment: When [...] for this test is supported by the [place] of Health and Human Service's declaration that [...] used). Performed By: #### C VDTBH #### [facility] [address] [place] [address] Dr. Ambrosio Ramirez INFLUENZA A AND B AGon 01-27 INFLUENZA A AG Negative Normal NEGATIVE SEE COMMENT [facility] Comment on above: Performed By: #### I NFLUAB #### [facility] [address] [place] [address] Dr. Ambrosio Ramirez INFLUENZA B AG Negative Normal NEGATIVE SEE COMMENT [facility] Comment on above: Performed By: #### I NFLUAB #### [facility] [address] [place] [address] Dr. Ambrosio Ramirez INTERNAL CONTROLS Within Normal Limits Normal Wi thin Normal Limits [facility] Comment on above: Performed By: #### I NFLUAB #### [facility] [address] [place] [address] Dr. Ambrosio Ramirez XR CHEST 2 Von [...] No acute disease. Electronically authenticated by: GEORGE RWOE Date: 2022-01-27 14:42 Normal [facility] RPR QUANTon 08-26-2021 Rapid Plasma Reagin, Quant Non-Reactive Normal NonRea<1:1 [facility] Comment on above: Result Comment: Hadley mitchell Note: This test does not meet current guidelines for screening and diagnosis of syphilis. This test is intended for following treatment response in patients being treated for syphilis infection. To screen for syphilis infection, a reflex cascade that includes both RPR and a treponema-specific assay should be utilized, such as Treponema pallidum (Syphilis) Screening [place] (411523) or Rapid Plasma Reagin (RPR) Test With Reflex to Quantitative RPR and Confirmatory Treponema pallidum Antibodies (588977). Performed By: #### R PRQ #### [facility] [address] [place] [address] Dr. Ambrosio Ramirez HEP B SURFACE ANTIGEN SCREEN on 08-24-2021 HBsAg Screen Negative Normal Negative [facility] Comment on above: Performed By: #### H BSANS #### [facility] [address] [address] [address] Ambrosio Ramirez HEPATITIS C ANTIBODYon 08-24 Hep C Virus Ab <0.1 Normal 0.0-0.9 [facility] Comment on above: Result Comment: Nega tive: < 0.8 Indeterminate: 0.8 - 0.9 Positive: > 0.9 . HCV antibody alone does not differentiate between previous resolved infection and active infection. The CDC and current clinical guidelines recommend that a positive HCV antibody result be followed up with an HCV RNA test to support the diagnosis of acute HCV infection. [facility] offers Hepatitis C Virus (HCV) RNA, Diagnosis, JAYY ([id number]) and Hepatitis C Virus (HCV) Antibody with reflex to Quantitative Real-time PCR ([id number]). Performed By: #### H CV #### [facility] [address] [address] [address] Ambrosio Ramirez INSULINon 08-23-2021 Insulin 5.0 uIU/mL Normal 2.6-24.9 [facility] Comment on above: Performed By: #### A 1C #### [facility] [address] [address] [address] Ambrosio Ramirez OCC BLD IMMUNO SCREENon OCCULT BLOOD Negative Normal NEGATIVE [facility] Comment on above: Performed By: #### O BSCRN #### [facility] [address] [place] [address] Dr. Ambrosio Ramirez CBC AUTO DIFFon 08-22-2021 BASO # 0.1 103/ul Normal 0.0-0.1 [facility] Comment on above: Performed By: #### O BSCRN #### [facility] [address] [place] [address] Dr. Ambrosio Ramirez Basophils/100 WBC (Bld) 1.0 % Normal 0.2-2.0 [facility] Comment on above: Performed By: #### O BSCRN #### [facility] [address] [place] [address] Dr. Ambrosio Ramirez EO # 0.1 103/ul Normal 0.0-0.7 [facility] Comment on above: Performed By: #### O BSCRN #### [facility] [address] [place] [address] Dr. Ambrosio Ramirez Eosinophils/100 WBC (Bld) 1.8 % Normal 0.9-7.0 [facility] Comment on above: Performed By: #### O BSCRN #### [facility] [address] [place] [address] Dr. Ambrosio Ramirez Erythrocyte distribution width (RBC) [Ratio] 11.9 % Normal 11.0-15.0 [facility] Comment on above: Performed By: #### O BSCRN #### [facility] [address] [place] [address] Dr. Ambrosio Ramirez Hematocrit (Bld) [Volume fraction] 48.6 % Critically high 36.0-48.0 [facility] Comment on above: Performed By: #### O BSCRN #### [facility] [address] [place] [address] Dr. Ambrosio Ramirez Hemoglobin (Bld) [Mass/Vol] 16.3 g/dL Critically high 12.0-16.0 [facility] Comment on above: Performed By: #### O BSCRN #### [facility] [address] [place], [place] [id number] Dr. Ambrosio Ramirez IG # 0.03 10e3/ul Normal 0.00-0.03 [facility] Comment on above: Performed By: #### O BSCRN #### [facility] [address] [place] [address] Dr. Ambrosio Ramirez IG % 0.6 % Critically high 0.0-0.[address] [facility] Comment on above: Performed By: #### O BSCRN #### [facility] [address] [place] [address] Dr. Ambrosio Ramirez LYMPH # 2.4 103/ul Normal 1.2-3.8 [facility] Comment on above: Performed By: #### O BSCRN #### [facility] [address] [place] [address] Dr. Ambrosio Ramirez Lymphocytes/100 WBC (Bld) 46.9 % Normal 20.5-60.0 [facility] Comment on above: Performed By: #### O BSCRN #### [facility] [address] [place] [address] Dr. Ambrosio Ramirez MANUAL DIFF REQ NO Normal [facility] Comment on above: Performed By: #### O BSCRN #### [facility] [address] [place] [address] Dr. Ambrosio Ramirez MCH (RBC) [Entitic mass] 34.9 pg Critically high 26.7-34.0 [facility] Comment on above: Performed By: #### O BSCRN #### [facility] [address] [place] [address] Dr. Ambrosio Ramirez MCHC (RBC) [Mass/Vol] 33.5 g/dL Normal 29.9-35.2 [facility] Comment on above: Performed By: #### O BSCRN #### [facility] [address] [place] [address] Dr. Ambrosio Ramirez MCV (RBC) [Entitic vol] 104.1 fL Critically high 81.0-99.0 [facility] Comment on above: Performed By: #### O BSCRN #### [facility] [address] [address] [address] Ambrosio Ramirez MONO # 0.4 103/ul Normal 0.3-0.[address] [facility] Comment on above: Performed By: #### O BSCRN #### [facility] [address] [place] [address] Dr. Ambrosio Ramirez Monocytes/100 WBC (Bld) 8.2 % Normal 1.7-12.[address] [facility] Comment on above: Performed By: #### O BSCRN #### [facility] [address] [place] [address] Dr. Ambrosio Ramirez NEUT # 2.1 103/ul Normal 1.4-6.[address] [facility] Comment on above: Performed By: #### O BSCRN #### [facility] [address] [place] [address] Dr. Ambrosio Ramirez Neutrophils/100 WBC (Bld) 41.5 % Critically low 43.0-75.[address] [facility] Comment on above: Performed By: #### O BSCRN #### [facility] [address] [place] [address] Dr. Ambrosio Ramirez Platelet mean volume (Bld) [Entitic vol] 9.3 fL Critically low 9.5-13.5 [facility] Comment on above: Performed By: #### O BSCRN #### [facility] [address] [place] [address] Dr. Ambrosio Ramirez PLT 210 103/ul Normal 150-[address] [facility] Comment on above: Performed By: #### O BSCRN #### [facility] [address] [place] [address] Dr. Ambrosio Ramirez RBC 4.67 106/ul Normal 4.20-5.[address] [facility] Comment on above: Performed By: #### O BSCRN #### [facility] [address] [place] [address] Dr. Ambrosio Ramirez WBC 5.0 103/ul Normal 4.0-11.[address] [facility] Comment on above: Performed By: #### O BSCRN #### [facility] [address] [address] [address] Ambrosio Ramirez FREE THYROXINE INDEX T7on FTI 2.72 Normal 1.30-4.50 [facility] Comment on above: Performed By: #### O BSCRN #### [facility] [address] [address] [address] Ambrosio Ramirez T3U 32.0 % Normal 30.0-39.0 [facility] Comment on above: Performed By: #### O BSCRN #### [facility] [address] [address] [address] Ambrosio Ramirez T4 [Mass/Vol] 8.50 ug/dL Normal 4.80-13.90 [facility] Comment on above: Performed By: #### O BSCRN #### [facility] [address] [place] [address] Dr. Ambrosio Ramirez GLYCOHEMOGLOBIN A1Con 2021 ADA RECOMMENDATION SEE BELOW Normal [facility] Comment on above: Result Comment: ADA RECOMMENDED LIMIT 4.0 - 6.0 ADA THERAPEUTIC TARGET < 7.0 ACTION SUGGESTED > 7.0 Performed By: #### A 1C #### [facility] [address] [address] [address] Ambrosio Ramirez Glucose [Mass/Vol] 108 mg/dL Normal [facility] Comment on above: Performed By: #### A 1C #### [facility] [address] [place] [address] Dr. Ambrosio Ramirez HbA1c (Bld) [Mass fraction] 5.4 % Normal 4.5-6.2 [facility] Comment on above: Performed By: #### A 1C #### [facility] [address] [address] [address] Ambrosio Ramirez HIV 1/2 RAPID (EXPOSURE ONLY )on 08-22-2021 HIV AB Negative Normal [facility] Comment on above: Performed By: #### A 1C #### [facility] [address] [place] [address] Dr. Ambrosio Ramirez HIV AG Negative Normal [facility] Comment on above: Performed By: #### A 1C #### [facility] [address] [place] [address] Dr. Ambrosio Ramirez INTERNAL CONTROLS Within Normal Limits Normal Wi thin Normal Limits [facility] Comment on above: Performed By: #### A 1C #### [facility] [address] [place] [address] Dr. Ambrosio Ramirez RAPID HIV INFO SEE BELOW Normal [facility] Comment on above: Result Comment: This test is used for the initial screening of the exposure source. Confirmation of all results will be obtained through reference lab testing. Performed By: #### A 1C #### [facility] [address] [place] [address] Dr. Ambrosio Ramirez IRONon 08-22-2021 Iron [Mass/Vol] 137.0 ug/dL Normal 50.0-170.0 [facility] Comment on above: Performed By: #### I HAMLET #### [facility] [address] [place] [address] Dr. Ambrosio Ramirez LIPID PROFILEon 08-22-2021 CHOL-HDL RATIO NORM SEE BELOW Normal [facility] Comment on above: Result Comment: 3.3 - 4.4 LOW RISK 4.4 - 7.1 AVERAGE RISK 7.1 - 11.0 MODERATE RISK >11.0 HIGH RISK Performed By: #### O BSCRN #### [facility] [address] [place] [address] Dr. Ambrosio Ramirez Cholesterol [Mass/Vol] 251 mg/dL Critically high <=200 [facility] Comment on above: Performed By: #### O BSCRN #### [facility] [address] [place] [address] Dr. Ambrosio Ramirez Cholesterol in HDL [Mass/Vol] 67 mg/dL Critically high 40-60 [facility] Comment on above: Performed By: #### O BSCRN #### [facility] [address] [place] [address] Dr. Ambrosio Ramirez Cholesterol in LDL [Mass/Vol] 154.8 mg/dL Normal [facility] Comment on above: Performed By: #### O BSCRN #### [facility] [address] [place] [address] Dr. Ambrosio Ramirez Cholesterol.total/Cho lesterol in HDL [Mass ratio] 3.7 {ratio} Normal [facility] Comment on above: Performed By: #### O BSCRN #### [facility] [address] [address] [address] Ambrosio Ramirez HDL NORMAL > or = 60 mg/dl - LOW CARDIOVASCULAR RISK <40 mg/dl - HIGH CARDIOVASCULAR RISK Normal [facility] Comment on above: Performed By: #### O BSCRN #### [facility] [address] [address] [address] Ambrosio Ramirez LDL CALC NORMAL SEE BELOW Normal [facility] Comment on above: Result Comment: <100 mg/dl OPTIMAL 100 - 129 mg/dl NEAR OR ABOVE OPTIMAL 130 - 159 mg/dl BORDERLINE HIGH 160 - 189 mg/dl HIGH >190 mg/dl VERY HIGH Performed By: #### O BSCRN #### [facility] [address] [address] [address] Ambrosio Ramirez Triglyceride [Mass/Vol] 146 mg/dL Normal <=150 [facility] Comment on above: Performed By: #### O BSCRN #### [facility] [address] [address] [address] Ambrosio Ramirez VLDL CALC 29.2 mg/dL Normal [facility] Comment on above: Performed By: #### O BSCRN #### [facility] [address] [address] [address] Ambrosio Ramirez PROF 14(COMP METB)on 022 Albumin [Mass/Vol] 4.3 g/dL Normal 3.4-5.0 [facility] Comment on above: Performed By: #### O BSCRN #### [facility] [address] [address] [address] Ambrosio Ramirez Albumin/Globulin [Mass ratio] 1.2 {ratio} Normal [facility] Comment on above: Performed By: #### O BSCRN #### [facility] [address] [address] [address] Ambrosio Ramirez ALP [Catalytic activity/Vol] 57 U/L Normal 46-116 [facility] Comment on above: Performed By: #### O BSCRN #### [facility] [address] [address] [address] Ambrosio Ramirez ALT [Catalytic activity/Vol] 56 U/L Normal 14-59 [facility] Comment on above: Performed By: #### O BSCRN #### [facility] [address] [address] [address] Ambrosio Ramirez Anion gap [Moles/Vol] 11.5 mmol/L Normal [facility] Comment on above: Performed By: #### O BSCRN #### [facility] [address] [address] [address] Ambrosio Ramirez AST [Catalytic activity/Vol] 75 U/L Critically high 15-37 [facility] Comment on above: Performed By: #### O BSCRN #### [facility] [address] [address] [address] Ambrosio Ramirez Bilirubin [Mass/Vol] 0.4 mg/dL Normal 0.2-1.0 [facility] Comment on above: Performed By: #### O BSCRN #### [facility] [address] [address] [address] Ambrosio Ramirez Calcium [Mass/Vol] 8.7 mg/dL Normal 8.5-10.1 [facility] Comment on above: Performed By: #### O BSCRN #### [facility] [address] [address] [address] Ambrosio Ramirez Chloride [Moles/Vol] 105 mmol/L Normal 98-107 [facility] Comment on above: Performed By: #### O BSCRN #### [facility] [address] [address] [address] Ambrosio Ramirez CO2 [Moles/Vol] 30.3 mmol/L Normal 21.0-32.0 [facility] Comment on above: Performed By: #### O BSCRN #### [facility] [address] [address] [address] Ambroiso Ramirez Creatinine [Mass/Vol] 0.67 mg/dL Normal 0.55-1.02 [facility] Comment on above: Performed By: #### O BSCRN #### [facility] [address] [address] [address] Ambrosio Ramirez EGFR-AF VIETNAMESE >60 Normal >=60 [facility] Comment on above: Performed By: #### O BSCRN #### [facility] [address] [address] [address] Ambrosio Ramirez EGFR-NON AF VIETNAMESE >60 Normal >=60 [facility] Comment on above: Performed By: #### O BSCRN #### [facility] [address] [address] [address] Ambrosio Ramirez Globulin (S) [Mass/Vol] 3.7 g/dL Normal [facility] Comment on above: Performed By: #### O BSCRN #### [facility] [address] [place] [address] Dr. Ambrosio Ramirez Glucose [Mass/Vol] 93 mg/dL Normal 74-106 [facility] Comment on above: Performed By: #### O BSCRN #### [facility] [address] [address] [address] Ambrosio Ramirez Potassium [Moles/Vol] 4.8 mmol/L Normal 3.5-5.1 [facility] Comment on above: Performed By: #### O BSCRN #### [facility] [address] [address] [address] Ambrosio Ramirez Protein [Mass/Vol] 8.0 g/dL Normal 6.4-8.2 [facility] Comment on above: Performed By: #### O BSCRN #### [facility] [address] [address] [address] Ambrosio Ramirez Sodium [Moles/Vol] 142 mmol/L Normal 136-145 [facility] Comment on above: Performed By: #### O BSCRN #### [facility] [address] [address] [address] Ambrosio Ramirez Urea nitrogen [Mass/Vol] 8.0 mg/dL Normal 7.0-18.0 [facility] Comment on above: Performed By: #### O BSCRN #### [facility] [address] [address] [address] Ambrosio Ramirez Urea nitrogen/Creatinine [Mass ratio] 11.9 mg/mg Normal [facility] Comment on above: Performed By: #### O BSCRN #### [facility] [address] [address] [address] Ambrosio Ramirez TSHon 08-22-2021 TSH 2.117 uIU/mL Normal 0.358-3.740 [facility] Comment on above: Performed By: #### O BSCRN #### [facility] [address] [address] [address] Ambrosio Ramirez XR CSPINE MIN 4 [...] Cervical fusion hardware with no mechanical failure [id number] degenerative changes of the cervical thoracic spine Electronically authenticated by: GEORGE ROWE Date: 2021-08-22 21:07 Normal [facility] Social History Date Type Detail Facility Start: 05-09-2022 Tobacco smoking status NHIS Smoker (finding) [facility] Start: 1960 Sex Assigned At Female F [facility] Sex Assigned At Sex Assigned At Bir th [employer] Other Vital Signs Date Time Vital Sign Value Performing Clinician Facility 05-09-2022 10:14-0400 Diastolic blood pressure 85 mm[Hg] HR GENERALIST-C Ama Edwards Work Phone: [facility] 05-09-2022 10:14-0400 Heart rate 99 /min HR GENERALIST-Fabricio Edwards Work Phone: [facility] 05-09-2022 10:14-0400 Respiratory rate 18 /min HR GENERALIST-C Ama Edwards Work Phone: [facility] 05-09-2022 10:14-0400 SaO2% (BldA) [Mass fraction] 99 % HR GENERALIST-C Ama Edwards Work Phone: [facility] 05-09-2022 10:14-0400 Systolic blood pressure 124 mm[Hg] HR GENERALIST-C Ama Edwards Work Phone: [facility] 05-09-2022 08:04-0400 Body height 180.34 cm HR GENERALIST-C Ama Edwards Work Phone: [facility] 05-09-2022 08:04-0400 Body weight 58.96 kg HR GENERALIST-C Ama Edwards Work Phone: [facility] 05-01-2022 11:15-0500 Body height Imad Asaad Other [employer] Other 05-01-2022 11:15-0500 Body mass index (BMI) [Ratio] 18.13 kg/m2 Imad Asaad Other [employer] Other 05-01-2022 11:15-0500 Body weight 58.97 kg Imad Asaad Other [employer] Other 05-01-2022 11:15-0500 Diastolic blood pressure 102 mm[Hg] Imad Asaad Other [employer] Other 05-01-2022 11:15-0500 Respiratory rate 16 /min Imad Asaad Other [employer] Other 05-01-2022 11:15-0500 Systolic blood pressure 158 mm[Hg] Imad Asaad Other [employer] Other Procedure note 05-09-2022 Note Date & Type Note Facility 05-09-2022 Procedure note [facility] Evaluation note 05-01-2022 Note Date & Type Note Facility 05-01-2022 Evaluation note Encounter Date Diagnosis Assessment Notes Apr, Dysphagia (ICD-10 - R13.10) Apr, Weight loss (ICD-10 - R63.4) Apr, Colon cancer screening (ICD-10 - Z12.11) [employer] Other Evaluation note Note Date & Type Note Facility Evaluation note No assessment information [facility] Work Phone: Evaluation note Note Date & Type Note Facility Evaluation note No Information [employer] Other History general Narrative - Reported Note Date & Type Note Facility History general Narrative - Reported Type Medical History Anxiety/Depression Surgical History Neck surgery Surgical History Tonsillectomy Hospitalization History See above [facility] [employer] Other Hospital Discharge instructions Note Date & [...] - Do NOT operate machinery such as [employer], [employer] mowers, snow blowers, sewing machines, etc. for [...] NOT operate machinery such as power tools, [employer]NA[employer] mowers, snow blowers, sewing machines, etc. for [...] -Follow up with PCP. - Office number [phone]. [facility] Work Phone: Chief Complaint and [...] and content) [facility] DIARRHEA, WEIGHT LOSS AND DYSPHAGIAClinical INFORMATION SOURCE (unrecogn ized section and content) DATE CREATED AUTHOR 05/20/2022 [facility] DATE CREATED AUTHOR AUTHOR'S ORGANIZ ATION 07/02/2022 [facility] DATE CREATED AUTHOR AUTHOR'S ORGANIZ ATION 07/09/2023 [facility] FOR RECORDS PERTAINING TO PATIENTS WHO ARE [...] BE BASED ON THE PRIMARY CLINICAL RECORDS. [employer] provides no warranty or guarantee of the accuracy or completeness of information in this document.
== END 2023-07-24 06:47 | disposition home or self-care (01) ==
LOC: MRI 06:46
PROVIDERS: PCP Nurse Practitioner Family; Visit Provider Nurse Practitioner
DX: M54.12 Radiculopathy, cervical region (principal); Z98.890 Other specified postprocedural states
CPT/HCPCS: 72141

== ENCOUNTER 2023-08-17 13:33 | Outpatient (OUT) | payer MEDICARE, OTHER, MEDICAID, SELFPAY ==
--- NOTE | 2023-08-17 14:20 | P.CN_ITS ---
Consult Note: HPI Data of Consult Patient: known to practice within the last 3 years Consult date: 08/17/23 Requesting Physician: Manuel Reynaga MD Primary Care Provider: [facility] Consult Narrative Reason for consult: neck pain Narrative: 62yof who presents for assessment. continues to have significant neck pain. previously underwent c2-3, 3-4 medial branch blocks x2 and had significant relief of >80% for >2 hours and subsequent return of pain to baseline. [place] and is now reestablishing. states that she will have lumbar surgery in september. continues to use xanax and states flexeril not helpful. denies adverse med side effects. cc:: CC: Manuel Reynaga MD Review of Systems ROS Status of ROS 10 or more systems reviewed and unremark able except as noted in history and below PFSH PFSH Medical History Upper back pain ?M54.9 - Dorsalgia, unspecified (ICD-10) Neck pain ?M54.2 - Cervicalgia (ICD-10) Anxiety ?F41.9 - Anxiety disorder, unspecified (ICD-10) Smoker ?F17.200 - Nicotine dependence, unspecified, uncomplicated (ICD-10) Surgical History H/O cervical spine surgery ?Z98.890 - Other specified postprocedural states (ICD-10) Meds Home Medications and Allergies Home Medications ?Medication ?Instructions ?Recorded ?Confirmed ?Type alprazolam 0.25 mg tablet (Xanax) 0.25 mg PO DAILY PRN anxiety 11/10/22 12/15/22 History escitalopram oxalate 10 mg tablet 10 mg PO DAILY 11/10/22 12/15/22 History (Lexapro) methocarbamol 750 mg tablet 750 mg PO TID 11/10/22 12/15/22 History cyclobenzaprine 10 mg tablet 10 mg PO TID PRN muscle spasm #90 07/06/23 Rx tabs etodolac 400 mg tablet (Lodine) 400 mg PO BID #60 tabs 07/06/23 Rx etodolac 400 mg tablet 400 mg PO BID #60 tabs 07/29/23 Rx buprenorphine 5 mcg/hour weekly 1 patch transdermal Q7D #4 ea 08/17/23 Rx transdermal patch (Butrans) Allergies Allergy/AdvReac Type Severity Reaction Status Date / Time No Known Drug Allergies Allergy Verified 12/15/22 10:25 Exam Narrative Exam Narrative: Psych-alert and oriented x 3.? Attentive and appropriate, constitutionally normal, displays normal mood and affect per situation.? There are no obvious deficits in memory, reasoning, or intellect.? Skin-no obvious rashes, bruising, or erythema noted to the patient's area of pain. Extremities-upper extremities are warm with minimal edema and palpable pulses. Cervical- tenderness to palpation noted in the cervical spine and paraspinal musculature.? Pain is elicited with extension, and lateral rotation of the cervical spine.? Range of motion is slightly diminished due to pain. Facet loading maneuvers are positive bilaterally.? Coordination remains intact.? Gait remains non-antalgic. Assessment and Plan Assessment and Plan (1) Cervical spondylosis: (2) Cervical postlaminectomy syndrome: Plan 62yof who presents for assessment. failed conservative measures. given symptoms and relief with 2 diagnostic blocks, as noted, prudent to proceed with left, then right, c2-3, 3-4 rfa under fluoroscopic guidance. will do this with ivcs. she is in agreement. meds reviewed. uds obtained. agreed to prescribe butrans patch 5mcg/hr, but no oral opioids given xanax use. follow up after procedure.
== END 2023-08-17 13:34 | disposition home or self-care (01) ==
PROVIDERS: PCP Nurse Practitioner Family; Visit Provider Anesthesiology
DX: M47.812 Spondylosis without myelopathy or radiculopathy, cervical region (principal); M96.1 Postlaminectomy syndrome, not elsewhere classified
CPT/HCPCS: G0463

== ENCOUNTER 2023-08-31 07:57 | Day surgery (SDC) | payer MEDICARE, OTHER, MEDICAID, SELFPAY ==
--- OUTSIDE RECORDS SUMMARY | 2023-08-31 08:01 | XMS_ITS | CCD ---
Author Organization [facility] CliniSyri Care Team Providers Care Bottom Polisher Name Role Phone MD Nesha Bryant Attending Provider [phone] JIE Edwards Primary Care Provider Asaad, Imad [...] AMA Admitting Unavailable JERRY, AMA Consulting Unavailable Giteo LEON, Manuel Yoo Attending Unavailable Giedraitis , Andkirshna Yoo Attending Unavailable Gieditis , Manuel Yoo Attending Unavailable Giedcitlalli LEON, Manuel Yoo Attending Unavailable Giedraitis Manuel LEON Attending Unavailable Medications Current Medications Medication Drug [...] 30 days Apr, Active polyethylene glycol 3350 [id number] mg / potassium chloride 2970 mg / sodium bicarbonate 6740 mg / sodium chloride 5860 mg / sodium sulfate 60633 mg powder for oral solution (2 sources) [...] Test Name Value Interpretation Reference Range Facility [facility] 05-09-2022 L Specimen: Received: 05/09/22 Status: EDUARD Nik Num: [id number] Spec Type: Surgical Subm Dr: Nesha Bryant MD Tissues: A Gastric Biopsy (GASTRIC) B Esophagus Biopsy (DISTAL ESOPHAGUS) C Esophagus Biopsy (PROXIMAL ESOPHAGUS) D Colon Biopsy (CECAL POLYP) E Colon Biopsy (SIGMOID POLYP) F Colon Biopsy (RECTAL POLYPS X3) Procedures: /, Gross/Micro L4/6 Age/ Patient Sex Location Account Attending Physician Nancy Joyce 61/F [id number] Nesha Bryant MD SPEC NUM: [id number] RECD: 05/09/22 STATUS: EDUARD ZARAGOZA NUM: [id number] KATY: 05/09/22- SUBM DR: Nesha Bryant MD ENTERED: 05/09/22-1040 [facility] : SPEC TYPE: Surgical DEPT: S ORDERED: HE/12, [...] mucosal fold. - Negative for adenoma/dysplasia. Specimen: [id number] Received: 05/09/22 Status: EDUARD Zaragoza Num: [id number] Spec Type: Surgical Subm Dr: Nesha Bryant MD Tissues: A Gastric Biopsy (GASTRIC) B Esophagus Biopsy (DISTAL ESOPHAGUS) C Esophagus Biopsy (PROXIMAL ESOPHAGUS) D Colon Biopsy (CECAL POLYP) E Colon Biopsy (SIGMOID POLYP) F Colon Biopsy (RECTAL POLYPS X3) Procedures: , Gross/Micro L4/6 Patient: Nancy Joyce [id number] (Continued) Specimen: [id number] Received: 05/09/22 (Continued) Pathological Diagnosis (Continued) Signed (signature on file) Carin Oliveros MD 05/12/22 1130 Specimen: [id number] Received: 05/09/22 Status: EDUARD Nik Num: [id number] Spec Type: Surgical Subm Dr: Nesha Bryant MD Tissues: A Gastric Biopsy (GASTRIC) B Esophagus Biopsy (DISTAL ESOPHAGUS) C Esophagus Biopsy (PROXIMAL ESOPHAGUS) D Colon Biopsy (CECAL POLYP) E Colon Biopsy (SIGMOID POLYP) F Colon Biopsy (RECTAL POLYPS X3) Procedures: Gross/Micro L4/6 Patient: Nancy Joyce [id number] (Continued) Specimen: [id number] Received: 05/09/22 (Continued) Pathological Diagnosis (Continued) E. [...] labeled 1. (more content not included)... Normal [facility] XR MODIFIED BARIUM SWALLOWon 03-25-2022 XR [...] DENNY RINCON Date: 2022-03-25 13:53 Normal [facility] INSULINon 03-13-2022 Insulin 3.9 uIU/mL Normal 2.6-24.9 [facility] Comment on above: Performed By: #### O BSCRN #### [facility] [address] [place] [address] Dr. Ambrosio Ramirez XR CSPINE MIN 4 [...] DENNY RINCON Date: 2022-03-13 08:09 Normal [facility] CBC AUTO DIFFon 03-12-2022 BASO # 0.0 103/ul Normal 0.0-0.1 [facility] Comment on above: Performed By: #### C BC #### [facility] [address] [place] [address] Dr. Ambrosio Ramirez Basophils/100 WBC (Bld) 0.7 % Normal 0.2-2.0 [facility] Comment on above: Performed By: #### C BC #### [facility] [address] [place] [address] Dr. Ambrosio Ramirez EO # 0.1 103/ul Normal 0.0-0.7 [facility] Comment on above: Performed By: #### C BC #### [facility] [address] [place] [address] Dr. Ambrosio Ramirez Eosinophils/100 WBC (Bld) 0.9 % Normal 0.9-7.0 [facility] Comment on above: Performed By: #### C BC #### [facility] [address] [place] [address] Dr. Ambrosio Ramirez Erythrocyte distribution width (RBC) [Ratio] 12.3 % Normal 11.0-15.0 [facility] Comment on above: Performed By: #### C BC #### [facility] [address] [place] [address] Dr. Ambrosio Ramirez Hematocrit (Bld) [Volume fraction] 46.0 % Normal 36.0-48.0 [facility] Comment on above: Performed By: #### C BC #### [facility] [address] [place] [address] Dr. Ambrosio Ramirez Hemoglobin (Bld) [Mass/Vol] 15.2 g/dL Normal 12.0-16.0 [facility] Comment on above: Performed By: #### C BC #### [facility] [address] [place] [address] Dr. Ambrosio Ramirez IG # 0.03 10e3/ul Normal 0.00-0.03 [facility] Comment on above: Performed By: #### C BC #### [facility] [address] [place] [address] Dr. Ambrosio Ramirez IG % 0.5 % Normal 0.0-0.5 [facility] Comment on above: Performed By: #### C BC #### [facility] [address] [place] [address] Dr. Ambrosio Ramirez LYMPH # 2.0 103/ul Normal 1.2-3.8 [facility] Comment on above: Performed By: #### C BC #### [facility] [address] [place] [address] Dr. Ambrosio Ramirez Lymphocytes/100 WBC (Bld) 35.0 % Normal 20.5-60.0 [facility] Comment on above: Performed By: #### C BC #### [facility] [address] [place] [address] Dr. Ambrosio Ramirez MANUAL DIFF REQ NO Normal [facility] Comment on above: Performed By: #### C BC #### [facility] [address] [place] [address] Dr. Ambrosio Ramirez MCH (RBC) [Entitic mass] 33.8 pg Normal 26.7-34.0 [facility] Comment on above: Performed By: #### C BC #### [facility] [address] [place] [address] Dr. Ambrosio Ramirez MCHC (RBC) [Mass/Vol] 33.0 g/dL Normal 29.9-35.2 [facility] Comment on above: Performed By: #### C BC #### [facility] [address] [place] [address] Dr. Ambrosio Ramirez MCV (RBC) [Entitic vol] 102.2 fL Critically high 81.0-99.0 [facility] Comment on above: Performed By: #### C BC #### [facility] [address] [place] [address] Dr. Ambrosio Ramirez MONO # 0.4 103/ul Normal 0.3-0.8 [facility] Comment on above: Performed By: #### C BC #### [facility] [address] [place] [address] Dr. Ambrosio Ramirez Monocytes/100 WBC (Bld) 7.2 % Normal 1.7-12.0 [facility] Comment on above: Performed By: #### C BC #### [facility] [address] [place] [address] Dr. Ambrosio Ramirez NEUT # 3.2 103/ul Normal 1.4-6.5 [facility] Comment on above: Performed By: #### C BC #### [facility] [address] [place] [address] Dr. Ambrosio Ramirez Neutrophils/100 WBC (Bld) 55.7 % Normal 43.0-75.0 [facility] Comment on above: Performed By: #### C BC #### [facility] [address] [place] [address] Dr. Ambrosio Ramirez Platelet mean volume (Bld) [Entitic vol] 9.1 fL Critically low 9.5-13.5 [facility] Comment on above: Performed By: #### C BC #### [facility] [address] [place] [address] Dr. Ambrosio Ramirez PLT 234 103/ul Normal 150-450 [facility] Comment on above: Performed By: #### C BC #### [facility] [address] [address] [address] Ambrosio Ramirez RBC 4.50 106/ul Normal 4.20-5.40 [facility] Comment on above: Performed By: #### C BC #### [facility] [address] [place] [address] Dr. Ambrosio Ramirez WBC 5.7 103/ul Normal 4.0-11.0 [facility] Comment on above: Performed By: #### C BC #### [facility] [address] [place] [address] Dr. Ambrosio Ramirez FREE THYROXINE INDEX T7on FTI 2.41 Normal 1.30-4.50 [facility] Comment on above: Performed By: #### A 1C #### [facility] [address] [place] [address] Dr. Ambrosio Ramirez T3U 33.0 % Normal 30.0-39.0 [facility] Comment on above: Performed By: #### A 1C #### [facility] [address] [place] [address] Dr. Ambrosio Ramirez T4 [Mass/Vol] 7.30 ug/dL Normal 4.80-13.90 [facility] Comment on above: Performed By: #### A 1C #### [facility] [address] [place] [address] Dr. Ambrosio Ramirez GLYCOHEMOGLOBIN A1Con 2022 ADA RECOMMENDATION SEE BELOW Normal [facility] Comment on above: Result Comment: ADA RECOMMENDED LIMIT 4.0 - 6.0 ADA THERAPEUTIC TARGET < 7.0 ACTION SUGGESTED > 7.0 Performed By: #### A 1C #### [facility] [address] [place] [address] Dr. Ambrosio Ramirez Glucose [Mass/Vol] 100 mg/dL Normal [facility] Comment on above: Performed By: #### A 1C #### [facility] [address] [place] [address] Dr. Ambrosio Ramirez HbA1c (Bld) [Mass fraction] 5.1 % Normal 4.5-6.2 [facility] Comment on above: Performed By: #### A 1C #### [facility] [address] [place] [address] Dr. Ambrosio Ramirez IRONon 03-12-2022 Iron [Mass/Vol] 148.0 ug/dL Normal 50.0-170.0 [facility] Comment on above: Performed By: #### O BSCRN #### [facility] [address] [place] [address] Dr. Ambrosio Ramirez LIPID PROFILEon 03-12-2022 CHOL-HDL RATIO NORM SEE BELOW Normal [facility] Comment on above: Result Comment: 3.3 - 4.4 LOW RISK 4.4 - 7.1 AVERAGE RISK 7.1 - 11.0 MODERATE RISK >11.0 HIGH RISK Performed By: #### A 1C #### [facility] [address] [place] [address] Dr. Amborsio Ramirez Cholesterol [Mass/Vol] 234 mg/dL Critically high <=200 [facility] Comment on above: Performed By: #### A 1C #### [facility] [address] [place] [address] Dr. Ambrosio Ramirez Cholesterol in HDL [Mass/Vol] 71 mg/dL Critically high 40-60 [facility] Comment on above: Performed By: #### A 1C #### [facility] [address] [place] [address] Dr. Ambrosio Ramirez Cholesterol in LDL [Mass/Vol] 132.4 mg/dL Normal [facility] Comment on above: Performed By: #### A 1C #### [facility] [address] [place] [address] Dr. Ambrosio Ramirez Cholesterol.total/Cho lesterol in HDL [Mass ratio] 3.3 {ratio} Normal [facility] Comment on above: Performed By: #### A 1C #### [facility] [address] [address] [address] Ambrosio Ramirez HDL NORMAL > or = 60 mg/dl - LOW CARDIOVASCULAR RISK <40 mg/dl - HIGH CARDIOVASCULAR RISK Normal [facility] Comment on above: Performed By: #### A 1C #### [facility] [address] [address] [address] Ambrosio Ramirez LDL CALC NORMAL SEE BELOW Normal [facility] Comment on above: Result Comment: <100 mg/dl OPTIMAL 100 - 129 mg/dl NEAR OR ABOVE OPTIMAL 130 - 159 mg/dl BORDERLINE HIGH 160 - 189 mg/dl HIGH >190 mg/dl VERY HIGH Performed By: #### A 1C #### [facility] [address] [place] [address] Dr. Ambrosio Ramirez Triglyceride [Mass/Vol] 153 mg/dL Critically high <=150 [facility] Comment on above: Performed By: #### A 1C #### [facility] [address] [address] [address] Ambrosio Ramirez VLDL CALC 30.6 mg/dL Normal [facility] Comment on above: Performed By: #### A 1C #### [facility] [address] [place] [address] Dr. Ambrosio Ramirez PROF 14(COMP METB)on 023 Albumin [Mass/Vol] 4.2 g/dL Normal 3.4-5.0 [facility] Comment on above: Performed By: #### A 1C #### [facility] [address] [place] [address] Dr. Ambrosio Ramirez Albumin/Globulin [Mass ratio] 1.3 {ratio} Normal [facility] Comment on above: Performed By: #### A 1C #### [facility] [address] [place] [address] Dr. Ambrosio Ramirez ALP [Catalytic activity/Vol] 62 U/L Normal 46-116 [facility] Comment on above: Performed By: #### A 1C #### [facility] [address] [place] [address] Dr. Ambrosio Ramirez ALT [Catalytic activity/Vol] 27 U/L Normal 14-59 [facility] Comment on above: Performed By: #### A 1C #### [facility] [address] [address] [address] Ambrosio Ramirez Anion gap [Moles/Vol] 12.8 mmol/L Normal [facility] Comment on above: Performed By: #### A 1C #### [facility] [address] [address] [address] Ambrosio Ramirez AST [Catalytic activity/Vol] 39 U/L Critically high 15-37 [facility] Comment on above: Performed By: #### A 1C #### [facility] [address] [address] [address] Ambrosio Ramirez Bilirubin [Mass/Vol] 0.4 mg/dL Normal 0.2-1.0 [facility] Comment on above: Performed By: #### A 1C #### [facility] [address] [address] [address] Ambrosio Ramirez Calcium [Mass/Vol] 9.1 mg/dL Normal 8.5-10.1 [facility] Comment on above: Performed By: #### A 1C #### [facility] [address] [place] [address] Dr. Ambrosio Ramirez Chloride [Moles/Vol] 103 mmol/L Normal 98-107 [facility] Comment on above: Performed By: #### A 1C #### [facility] [address] [address] [address] Ambrosio Ramirez CO2 [Moles/Vol] 30.5 mmol/L Normal 21.0-32.0 [facility] Comment on above: Performed By: #### A 1C #### [facility] [address] [address] [address] Ambrosio Ramirez Creatinine [Mass/Vol] 0.54 mg/dL Critically low 0.55-1.02 [facility] Comment on above: Performed By: #### A 1C #### [facility] [address] [address] [address] Ambrosio Ramirez EGFR-AF IRANIAN >60 Normal >=60 [facility] Comment on above: Performed By: #### A 1C #### [facility] [address] [address] [address] Ambrosio Ramirez EGFR-NON AF IRANIAN >60 Normal >=60 [facility] Comment on above: Performed By: #### A 1C #### [facility] [address] [address] [address] Ambrosio Ramirez Globulin (S) [Mass/Vol] 3.3 g/dL Normal [facility] Comment on above: Performed By: #### A 1C #### [facility] [address] [address] [address] Ambrosio Ramirez Glucose [Mass/Vol] 88 mg/dL Normal 74-106 [facility] Comment on above: Performed By: #### A 1C #### [facility] [address] [address] [address] Ambrosio Ramirez Potassium [Moles/Vol] 4.3 mmol/L Normal 3.5-5.1 [facility] Comment on above: Performed By: #### A 1C #### [facility] [address] [address] [address] Ambrosio Ramirez Protein [Mass/Vol] 7.5 g/dL Normal 6.4-8.2 [facility] Comment on above: Performed By: #### A 1C #### [facility] [address] [address] [address] Ambrosio Ramirez Sodium [Moles/Vol] 142 mmol/L Normal 136-145 [facility] Comment on above: Performed By: #### A 1C #### [facility] [address] [address] [address] Ambrosio Ramirez Urea nitrogen [Mass/Vol] 9.0 mg/dL Normal 7.0-18.0 [facility] Comment on above: Performed By: #### A 1C #### [facility] [address] [address] [address] Ambrosio Ramirez Urea nitrogen/Creatinine [Mass ratio] 16.7 mg/mg Normal [facility] Comment on above: Performed By: #### A 1C #### [facility] [address] [address] [address] Ambrosio Ramirez TSHon 03-12-2022 TSH 1.934 uIU/mL Normal 0.358-3.740 [facility] Comment on above: Performed By: #### A 1C #### [facility] [address] [address] [address] Ambrosio Ramirez XR TSPINE 3 VIEWSon [...] GEORGE CATALAN Date: 2022-03-12 17:07 Normal [facility] Covid-19 PCR ([facility])on SARS-CoV-2 (COVID-19) RNA JAYY+probe Ql (Unsp spec) Not detected Normal NOT DETECTED [facility] Comment on above: Result Comment: When [...] for this test is supported by the [place] of Health and Human Service's declaration that [...] used). Performed By: #### C VDTBH #### [facility] [address] [address] [address] Ambrosio Ramirez INFLUENZA A AND B AGon 01-27 INFLUENZA A AG Negative Normal NEGATIVE SEE COMMENT [facility] Comment on above: Performed By: #### I NFLUAB #### [facility] [address] [place] [address] Dr. Ambrosio Ramirez INFLUENZA B AG Negative Normal NEGATIVE SEE COMMENT [facility] Comment on above: Performed By: #### I NFLUAB #### [facility] [address] [place] [address] Dr. Ambrosio Ramirez INTERNAL CONTROLS Within Normal Limits Normal Wi thin Normal Limits [facility] Comment on above: Performed By: #### I NFLUAB #### [facility] [address] [address] [address] Ambrosio Ramirez XR CHEST 2 Von [...] GEORGE ROWE Date: 2022-01-27 14:42 Normal [facility] RPR QUANTon 08-26-2021 Rapid Plasma Reagin, Quant Non-Reactive Normal NonRea<1:1 [facility] Comment on above: Result Comment: Plea se Note: This test does not meet current guidelines for screening and diagnosis of syphilis. This test is intended for following treatment response in patients being treated for syphilis infection. To screen for syphilis infection, a reflex cascade that includes both RPR and a treponema-specific assay should be utilized, such as Treponema pallidum (Syphilis) Screening [place] (808230) or Rapid Plasma Reagin (RPR) Test With Reflex to Quantitative RPR and Confirmatory Treponema pallidum Antibodies (702858). Performed By: #### R PRQ #### [facility] [address] [place] [address] Dr. Ambrosio Ramirez HEP B SURFACE ANTIGEN SCREEN on 08-24-2021 HBsAg Screen Negative Normal Negative [facility] Comment on above: Performed By: #### H BSANS #### [facility] [address] [place] [address] Dr. Ambrosio Ramirez HEPATITIS C ANTIBODYon 08-24 Hep C Virus Ab <0.1 Normal 0.0-0.9 [facility] Comment on above: Result Comment: Nega [...] Hepatitis C Virus (HCV) RNA, Diagnosis, JAYY (738878) and Hepatitis C Virus (HCV) Antibody with reflex to Quantitative Real-time PCR ([id number]). Performed By: #### H CV #### [facility] [address] [place] [address] Dr. Ambrosio Ramirez INSULINon 08-23-2021 Insulin 5.0 uIU/mL Normal 2.6-24.9 [facility] Comment on above: Performed By: #### A 1C #### [facility] [address] [place] [address] Dr. Ambrosio Ramirez OCC BLD IMMUNO SCREENon OCCULT BLOOD Negative Normal NEGATIVE [facility] Comment on above: Performed By: #### O BSCRN #### [facility] [address] [place] [address] Dr. Ambrosio Ramirez CBC AUTO DIFFon 08-22-2021 BASO # 0.1 103/ul Normal 0.0-0.1 [facility] Comment on above: Performed By: #### O BSCRN #### [facility] [address] [place] [address] Dr. Ambrosio aRmirez Basophils/100 WBC (Bld) 1.0 % Normal 0.2-2.0 [facility] Comment on above: Performed By: #### O BSCRN #### [facility] [address] [place] [address] Dr. Ambrosio Ramirez EO # 0.1 103/ul Normal 0.0-0.7 [facility] Comment on above: Performed By: #### O BSCRN #### [facility] [address] [place] [address] Dr. Ambrosio Ramirez Eosinophils/100 WBC (Bld) 1.8 % Normal 0.9-7.0 [facility] Comment on above: Performed By: #### O BSCRN #### [facility] [address] [place] [address] Dr. Ambrosio Ramirez Erythrocyte distribution width (RBC) [Ratio] 11.9 % Normal 11.0-15.0 [facility] Comment on above: Performed By: #### O BSCRN #### [facility] [address] [place] [address] Dr. Ambrosio Ramirez Hematocrit (Bld) [Volume fraction] 48.6 % Critically high 36.0-48.0 [facility] Comment on above: Performed By: #### O BSCRN #### [facility] [address] [place] [address] Dr. Ambrosio Ramirez Hemoglobin (Bld) [Mass/Vol] 16.3 g/dL Critically high 12.0-16.0 [facility] Comment on above: Performed By: #### O BSCRN #### [facility] [address] [place] [address] Dr. Ambrosio Ramirez IG # 0.03 10e3/ul Normal 0.00-0.03 [facility] Comment on above: Performed By: #### O BSCRN #### [facility] [address] [place] [address] Dr. Ambrosio Ramirez IG % 0.6 % Critically high 0.0-0.5 [facility] Comment on above: Performed By: #### O BSCRN #### [facility] [address] [place] [address] Dr. Ambrosio Ramirez LYMPH # 2.4 103/ul Normal 1.2-3.8 [facility] Comment on above: Performed By: #### O BSCRN #### [facility] [address] [place] [address] Dr. Ambrosio Ramirez Lymphocytes/100 WBC (Bld) 46.9 % Normal 20.5-60.0 [facility] Comment on above: Performed By: #### O BSCRN #### [facility] [address] [place] [address] Dr. Ambrosio Ramirez MANUAL DIFF REQ NO Normal [facility] Comment on above: Performed By: #### O BSCRN #### [facility] [address] [place] [address] Dr. Ambrosio Ramirez MCH (RBC) [Entitic mass] 34.9 pg Critically high 26.7-34.0 [facility] Comment on above: Performed By: #### O BSCRN #### [facility] [address] [place] [address] Dr. Ambrosio Ramirez MCHC (RBC) [Mass/Vol] 33.5 g/dL Normal 29.9-35.2 [facility] Comment on above: Performed By: #### O BSCRN #### [facility] [address] [place] [address] Dr. Ambrosio Ramirez MCV (RBC) [Entitic vol] 104.1 fL Critically high 81.0-99.0 [facility] Comment on above: Performed By: #### O BSCRN #### [facility] [address] [place] [address] Dr. Ambrosio Ramirez MONO # 0.4 103/ul Normal 0.3-0.8 [facility] Comment on above: Performed By: #### O BSCRN #### [facility] [address] [place] [address] Dr. Ambrosio Ramirez Monocytes/100 WBC (Bld) 8.2 % Normal 1.7-12.0 [facility] Comment on above: Performed By: #### O BSCRN #### [facility] [address] [place] [address] Dr. Ambrosio Ramirez NEUT # 2.1 103/ul Normal 1.4-6.5 [facility] Comment on above: Performed By: #### O BSCRN #### [facility] [address] [address] [address] Ambrosio Ramirez Neutrophils/100 WBC (Bld) 41.5 % Critically low 43.0-75.0 [facility] Comment on above: Performed By: #### O BSCRN #### [facility] [address] [place] [address] Dr. Ambrosio Ramirez Platelet mean volume (Bld) [Entitic vol] 9.3 fL Critically low 9.5-13.5 [facility] Comment on above: Performed By: #### O BSCRN #### [facility] [address] [place] [address] Dr. Ambrosio Ramirez PLT 210 103/ul Normal 150-450 [facility] Comment on above: Performed By: #### O BSCRN #### [facility] [address] [place] [address] Dr. Ambrosio Ramirez RBC 4.67 106/ul Normal 4.20-5.40 [facility] Comment on above: Performed By: #### O BSCRN #### [facility] [address] [place] [address] Dr. Ambrosio Ramirez WBC 5.0 103/ul Normal 4.0-11.0 [facility] Comment on above: Performed By: #### O BSCRN #### [facility] [address] [place] [address] Dr. Ambrosio Ramirez FREE THYROXINE INDEX T7on -2021 FTI 2.72 Normal 1.30-4.50 [facility] Comment on above: Performed By: #### O BSCRN #### [facility] [address] [place] [address] Dr. Ambrosio Ramirez T3U 32.0 % Normal 30.0-39.0 [facility] Comment on above: Performed By: #### O BSCRN #### [facility] [address] [place] [address] Dr. Ambrosio Ramirez T4 [Mass/Vol] 8.50 ug/dL Normal 4.80-13.90 [facility] Comment on above: Performed By: #### O BSCRN #### [facility] [address] [address] [address] Ambrosio Ramirez GLYCOHEMOGLOBIN A1Con 2021 ADA RECOMMENDATION SEE BELOW Normal [facility] Comment on above: Result Comment: ADA RECOMMENDED LIMIT 4.0 - 6.0 ADA THERAPEUTIC TARGET < 7.0 ACTION SUGGESTED > 7.0 Performed By: #### A 1C #### [facility] [address] [address] [address] Ambrosio Ramirez Glucose [Mass/Vol] 108 mg/dL [facility] Comment on above: Performed By: #### A 1C #### [facility] [address] [address] [address] Ambrosio Ramirez HbA1c (Bld) [Mass fraction] 5.4 % Normal 4.5-6.2 [facility] Comment on above: Performed By: #### A 1C #### [facility] [address] [place] [address] Dr. Ambrosio Ramirez HIV 1/2 RAPID (EXPOSURE ONLY )on 08-22-2021 HIV AB Negative Normal [facility] Comment on above: Performed By: #### A 1C #### [facility] [address] [address] [address] Ambrosio Ramirez HIV AG Negative [facility] Comment on above: Performed By: #### A 1C #### [facility] [address] [place] [address] Dr. Ambrosio Ramirez INTERNAL CONTROLS Within Normal Limits Normal Wi thin Normal Limits [facility] Comment on above: Performed By: #### A 1C #### [facility] [address] [place] [address] Dr. Ambrosio Ramirez RAPID HIV INFO SEE BELOW Normal [facility] Comment on above: Result Comment: This test is used for the initial screening of the exposure source. Confirmation of all results will be obtained through reference lab testing. Performed By: #### A 1C #### [facility] [address] [place] [address] Dr. Ambrosio Ramirez IRONon 08-22-2021 Iron [Mass/Vol] 137.0 ug/dL Normal 50.0-170.0 [facility] Comment on above: Performed By: #### I HAMLET #### [facility] [address] [address] [address] Ambrosio Ramirez LIPID PROFILEon 08-22-2021 CHOL-HDL RATIO NORM SEE BELOW Normal [facility] Comment on above: Result Comment: 3.3 - 4.4 LOW RISK 4.4 - 7.1 AVERAGE RISK 7.1 - 11.0 MODERATE RISK >11.0 HIGH RISK Performed By: #### O BSCRN #### [facility] [address] [address] [address] Ambrosio Ramirez Cholesterol [Mass/Vol] 251 mg/dL Critically high <=200 [facility] Comment on above: Performed By: #### O BSCRN #### [facility] [address] [address] [address] Ambrosio Ramirez Cholesterol in HDL [Mass/Vol] 67 mg/dL Critically high 40-60 [facility] Comment on above: Performed By: #### O BSCRN #### [facility] [address] [address] [address] Ambrosio Ramirez Cholesterol in LDL [Mass/Vol] 154.8 mg/dL Normal [facility] Comment on above: Performed By: #### O BSCRN #### [facility] [address] [address] [address] Ambrosio Ramirez Cholesterol.total/Cho lesterol in HDL [Mass ratio] 3.7 {ratio} Normal [facility] Comment on above: Performed By: #### O BSCRN #### [facility] [address] [address] [address] Ambrosio Ramirez HDL NORMAL > or = 60 mg/dl - LOW CARDIOVASCULAR RISK <40 mg/dl - HIGH CARDIOVASCULAR RISK Normal [facility] Comment on above: Performed By: #### O BSCRN #### [facility] [address] [address] [address] Ambrosio Ramirez LDL CALC NORMAL SEE BELOW Normal [facility] Comment on above: Result Comment: <100 mg/dl OPTIMAL 100 - 129 mg/dl NEAR OR ABOVE OPTIMAL 130 - 159 mg/dl BORDERLINE HIGH 160 - 189 mg/dl HIGH >190 mg/dl VERY HIGH Performed By: #### O BSCRN #### [facility] [address] [address] [address] Ambrosio Ramirez Triglyceride [Mass/Vol] 146 mg/dL Normal <=150 [facility] Comment on above: Performed By: #### O BSCRN #### [facility] [address] [address] [address] Ambrosio Ramirez VLDL CALC 29.2 mg/dL Normal [facility] Comment on above: Performed By: #### O BSCRN #### [facility] [address] [place] [address] Dr. Ambrosio Ramirez PROF 14(COMP METB)on 022 Albumin [Mass/Vol] 4.3 g/dL Normal 3.4-5.0 [facility] Comment on above: Performed By: #### O BSCRN #### [facility] [address] [place] [address] Dr. Ambrosio Ramirez Albumin/Globulin [Mass ratio] 1.2 {ratio} Normal [facility] Comment on above: Performed By: #### O BSCRN #### [facility] [address] [place] [address] Dr. Ambrosio Ramirez ALP [Catalytic activity/Vol] 57 U/L Normal 46-116 [facility] Comment on above: Performed By: #### O BSCRN #### [facility] [address] [place] [address] Dr. Ambrosio Ramirez ALT [Catalytic activity/Vol] 56 U/L Normal 14-59 [facility] Comment on above: Performed By: #### O BSCRN #### [facility] [address] [address] [address] Ambrosio Ramirez Anion gap [Moles/Vol] 11.5 mmol/L Normal [facility] Comment on above: Performed By: #### O BSCRN #### [facility] [address] [place] [address] Dr. Ambrosio Ramirez AST [Catalytic activity/Vol] 75 U/L Critically high 15-37 [facility] Comment on above: Performed By: #### O BSCRN #### [facility] [address] [address] [address] Ambrosio Ramirez Bilirubin [Mass/Vol] 0.4 mg/dL Normal 0.2-1.0 [facility] Comment on above: Performed By: #### O BSCRN #### [facility] [address] [address] [address] Ambrosio Ramirez Calcium [Mass/Vol] 8.7 mg/dL Normal 8.5-10.1 [facility] Comment on above: Performed By: #### O BSCRN #### [facility] [address] [address] [address] Ambrosio Ramirez Chloride [Moles/Vol] 105 mmol/L Normal 98-107 [facility] Comment on above: Performed By: #### O BSCRN #### [facility] [address] [place] [address] Dr. Ambrosio Ramirez CO2 [Moles/Vol] 30.3 mmol/L Normal 21.0-32.0 [facility] Comment on above: Performed By: #### O BSCRN #### [facility] [address] [place] [address] Dr. Ambrosio Ramirez Creatinine [Mass/Vol] 0.67 mg/dL Normal 0.55-1.02 [facility] Comment on above: Performed By: #### O BSCRN #### [facility] [address] [place] [address] Dr. Ambrosio Ramirez EGFR-AF IRANIAN >60 Normal >=60 [facility] Comment on above: Performed By: #### O BSCRN #### [facility] [address] [place] [address] Dr. Ambrosio Ramirez EGFR-NON AF IRANIAN >60 Normal >=60 [facility] Comment on above: Performed By: #### O BSCRN #### [facility] [address] [place] [address] Dr. Ambrosio Ramirez Globulin (S) [Mass/Vol] 3.7 g/dL Normal [facility] Comment on above: Performed By: #### O BSCRN #### [facility] [address] [address] [address] Ambrosio Ramirez Glucose [Mass/Vol] 93 mg/dL Normal 74-106 [facility] Comment on above: Performed By: #### O BSCRN #### [facility] [address] [address] [address] Ambrosio Ramirez Potassium [Moles/Vol] 4.8 mmol/L Normal 3.5-5.1 [facility] Comment on above: Performed By: #### O BSCRN #### [facility] [address] [address] [address] Ambrosio Ramirez Protein [Mass/Vol] 8.0 g/dL Normal 6.4-8.2 [facility] Comment on above: Performed By: #### O BSCRN #### [facility] [address] [address] [address] Ambrosio Ramirez Sodium [Moles/Vol] 142 mmol/L Normal 136-145 [facility] Comment on above: Performed By: #### O BSCRN #### [facility] [address] [address] [address] Ambrosio Ramirez Urea nitrogen [Mass/Vol] 8.0 mg/dL Normal 7.0-18.0 [facility] Comment on above: Performed By: #### O BSCRN #### [facility] [address] [address] [address] Ambrosio Ramirez Urea nitrogen/Creatinine [Mass ratio] 11.9 mg/mg Normal [facility] Comment on above: Performed By: #### O BSCRN #### [facility] [address] [address] [address] Ambrosio Ramirez TSHon 08-22-2021 TSH 2.117 uIU/mL Normal 0.358-3.740 [facility] Comment on above: Performed By: #### O BSCRN #### [facility] [address] [address] [address] Ambrosio Ramirez XR CSPINE MIN 4 [...] Cervical fusion hardware with no mechanical failure Cvmy-ic-qbwehtfe degenerative changes of the cervical thoracic spine Electronically authenticated by: GEORGE ROWE Date: 2021-08-22 21:07 Normal [facility] Vital Signs Date Time Vital Sign Value Performing Clinician Facility 05-09-2022 10:14-0400 Diastolic blood pressure 85 mm[Hg] CAKE FORMER-C Ama Edwards Work Phone: [facility] 05-09-2022 10:14-0400 Heart rate 99 /min CAKE FORMER-C Ama Edwards Work Phone: [facility] 05-09-2022 10:14-0400 Respiratory rate 18 /min CAKE FORMER-C Ama Edwards Work Phone: [facility] 05-09-2022 10:14-0400 SaO2% (BldA) [Mass fraction] 99 % CAKE FORMER-C Ama Edwards Work Phone: [facility] 05-09-2022 10:14-0400 Systolic blood pressure 124 mm[Hg] CAKE FORMER-C Ama Edwards Work Phone: [facility] 05-09-2022 08:04-0400 Body height 180.34 cm CAKE FORMER-C Ama Edwards Work Phone: [facility] 05-09-2022 08:04-0400 Body weight 58.96 kg CAKE FORMER-C Ama Edwards Work Phone: [facility] 05-01-2022 11:15-0500 Body height Imad Asaad Other [facility] Other 05-01-2022 11:15-0500 Body mass index (BMI) [Ratio] 18.13 kg/m2 Imad Asaad Other [facility] Other 05-01-2022 11:15-0500 Body weight 58.97 kg Imad Asaad Other [facility] Other 05-01-2022 11:15-0500 Diastolic blood pressure 102 mm[Hg] Imad Asaad Other [facility] Other 05-01-2022 11:15-0500 Respiratory rate 16 /min Imad Asaad Other [facility] Other 05-01-2022 11:15-0500 Systolic blood pressure 158 mm[Hg] Imad Asaad Other [facility] Other Encounters Encounter Date Encounter Type Care Provider Facility Start: 08-17-2023 End: 08-17-2023 ambulatory Manuel Reynaga MD Facility: [facility] Start: 07-06-2023 End: 07-06-2023 ambulatory Manuel Reynaga MD Facility: [facility] Start: 12-15-2022 End: 12-15-2022 ambulatory Manuel Reynaga MD Facility: [facility] Start: 11-17-2022 End: 11-17-2022 ambulatory Manuel Reynaga MD Facility: [facility] Start: 11-10-2022 End: 11-10-2022 ambulatory Manuel Reynaga MD Facility: [facility] Start: 05-09-2022 End: 05-09-2022 ambulatory Ama Edwards Facility:[facility] Start: 05-09-2022 End: 05-09-2022 Admission to same day surgery center JIE Edwards Work Phone: [facility] Work Phone: Start: 05-09-2022 End: 05-09-2022 ambulatory JIE Edwards Work Phone: [facility] Work Phone: Start: 05-02-2022 End: 05-02-2022 ambulatory Imad Asaad Other [facility] Other Start: 05-02-2022 Telephone encounter Imad Asaad [facility] Start: 05-01-2022 End: 05-01-2022 ambulatory Imad Asaad Other [facility] Other Start: 05-01-2022 Office consultation new/estab patient [...] Procedure Detail Performing Clinician Start: 05-09-2022 Esophagogastroduodenoscopy SHANE-Fabricio patel Work Phone: Screening for malign ant neoplasm of colon Imad Asaad Other Plan of Treatment Date Care Activity Detail Author Start: 05-09-2022 [facility] Patient Education Colon Polyps H emorrhoids (DC) Diverticulosis (DC) Gastritis (DC) [facility] Work Phone: Payers Date Payer Category Payer Self-pay 2022 Unknown 1960 Unknown [id number] 2.16.84 [id number] 1960 Unknown [id number] 2.16.84 [id number] 1960 Unknown [id number] 2.16.84 [id number] 1960 Unknown [id number] 2.16.84 [id number] 1962 Unknown [id number] 2.16.84 [id number] 1962 Unknown [id number] 2.16.84 [id number] 1962 Unknown [id number] 2.16.84 [id number] 1962 Unknown [id number] 2.16. [id number] 1962 Unknown [id number] 2.16. [id number] 1962 Unknown [id number] 2.16. [id number] 1962 Unknown [id number] 2.16. [id number] 1962 Unknown [id number] 2.16. [id number] 1957 Medicare [id number] 21 [id number] 1959 Unknown [id number] 1957 Unknown [id number] 1957 Unknown [id number] Unknown [id number] 2.16.8 [id number] Social History Date Type Detail Facility Start: 05-09-2022 Tobacco smoking status NHIS Smoker (finding) [facility] Start: 1960 Sex Assigned At Female F [facility] Sex Assigned At Sex Assigned At Bir th [facility] Other Goals Date Patient Goal Desired Activity /State Procedure note 05-09-2022 Note Date & Type Note Facility 05-09-2022 Procedure note [facility] Evaluation note 05-01-2022 Note Date & Type Note Facility 05-01-2022 Evaluation note Encounter Date Diagnosis Assessment Notes Apr, Dysphagia (ICD-10 - R13.10) Apr, Weight loss (ICD-10 - R63.4) Apr, Colon cancer screening (ICD-10 - Z12.11) [facility] Other Evaluation note Note Date & Type Note Facility Evaluation note No assessment information availa ble [facility] Work Phone: Evaluation note Note Date & Type Note Facility Evaluation note No Information [facility] Other History general Narrative - Reported Note Date & Type Note Facility History general Narrative - Reported Type Medical History Anxiety/Depression Surgical History Neck surgery Surgical History Tonsillectomy Hospitalization History See above [facility] Other Hospital Discharge instructions Note Date & [...] -Follow up with PCP. - Office number [phone]. [facility] Work Phone: Chief Complaint and Reason for [...] section and content) DATE CREATED AUTHOR 05/20/2022 [facility] DATE CREATED AUTHOR AUTHOR'S ORGANIZ ATION 07/02/2022 [facility] DATE CREATED AUTHOR AUTHOR'S ORGANIZ ATION 08/19/2023 [facility] FOR RECORDS PERTAINING TO PATIENTS [...] BE BASED ON THE PRIMARY CLINICAL RECORDS. [facility]. provides no warranty or guarantee of the accuracy or completeness of information in this document.
[2023-08-31 08:06] VITALS: BP 132/83; PULSE 87; TEMP 36.7; O2SAT 97
[2023-08-31] MEDS: 0.9 % SODIUM CHLORIDE 500 ML IV (08:15)
[2023-08-31] MEDS: DEXAMETHASONE SOD PHOS 10 MG/ML VIAL INJ (08:49)
[2023-08-31] MEDS: BUPIVACAINE HCL 0.25% PF 25 MG/10 ML VIAL 5 ML INJ (08:49)
[2023-08-31] MEDS: LIDOCAINE HCL 2% 400 MG/20 ML MDV 5 ML INJ (08:50)
--- NOTE | 2023-08-31 09:00 | P.ON_ITS ---
Date of procedure: 08/31/23 Pre-op diagnosis: Pain due to cervical spondylosis without myelopathy Post-op diagnosis: same as pre-op Procedure: Procedure: Left C2-3, 3-4 radiofrequency ablation Medications: Bupivacaine 0.25% 2cc, lidocaine 2% 3cc, dexamethasone 10mg The patient was seen and examined in the preoperative holding area.? The site was marked.? Written informed consent was obtained and placed on the chart.? The patient was brought to the medical procedure unit and placed in the prone position.? A timeout was completed verifying correct patient, procedure, positioning, and special requirements.? The skin overlying the target points, the designated medial branch, were prepped and draped in the usual sterile fashion.? The target point was achieved with a 20-gauge 15 cm with a 10 mm curved active tip radiofrequency cannula under direct fluoroscopic visualization .? The needle was inserted at level C2 on the left side. Needle tip position was confirmed with lateral fluoroscopic position.? Motor stimulation was carried out at 2 Hz up to 5 volts with the absence of extremity activity.? This was repeated at level C3, 4 on left side.?? Sensory stimulation was carried out.? Concordant pain was realized at the above- mentioned sites.? Then radiofrequency lesioning was carried out times 90 seconds at 80 degrees times 2 lesions at each level.? The radiofrequency probe was removed prior to cannula removal.? The above-mentioned injectate was placed in 1 mL increments.? The needle was removed.? Insertion sites were covered.? The patient was taken to the postoperative recovery area and monitored for an appropriate length of time before being found suitable for discharge in the company of a responsible adult. Anesthesia: MAC Surgeon: Manuel Reynaga Pathology: none sent Condition: stable Disposition: no change
[2023-08-31 09:02] VITALS: BP 130/73; PULSE 90; TEMP 37.4; O2SAT 96
[2023-08-31 09:09] VITALS: BP 119/76; PULSE 86; O2SAT 99
== END 2023-08-31 09:28 | disposition home or self-care (01) ==
LOC: SURGOUT 07:58
PROVIDERS: PCP Nurse Practitioner Family; Visit Provider Anesthesiology
DX: M47.812 Spondylosis without myelopathy or radiculopathy, cervical region (principal)
CPT/HCPCS: 64633; 64634; J0665; J1100; J2704

== ENCOUNTER 2023-09-21 07:20 | Day surgery (SDC) | payer MEDICARE, OTHER, MEDICAID, SELFPAY ==
--- OUTSIDE RECORDS SUMMARY | 2023-09-21 07:23 | XMS_ITS | CCD ---
Author Organization [facility]iniSyaz Care Team Providers Care Beef Killer Name Role Phone MD Nesha Bryant Attending Provider [phone] JIE Edwards Primary Care Provider [phone] Asaad, Imad Unavailable Ama Edwards Primary Care [...] LEON, Manuel Yoo Attending Unavailable Giedraitis , Andkrishna Yoo Attending Unavailable Gieditis , Manuel Yoo Attending Unavailable Giedcitlalli LEON, Manuel Yoo Attending Unavailable Giedraitis MD, Manuel Yoo Attending Unavailable Juhi LEON, Manuel [...] 30 days Apr, Active polyethylene glycol 3350 598905 mg / potassium chloride 2970 mg / sodium bicarbonate 6740 mg / sodium chloride 5860 mg / sodium sulfate 50779 mg powder for oral solution (2 sources) [...] Results Test Name Value Interpretation Reference Range [facility] 05-09-2022 L Specimen: [id number] Received: 05/09/22 Status: EDUARD Nik Num: [id number] Spec Type: Surgical Subm Dr: Nesha Bryant MD Tissues: A Gastric Biopsy (GASTRIC) B Esophagus Biopsy (DISTAL ESOPHAGUS) C Esophagus Biopsy (PROXIMAL ESOPHAGUS) D Colon Biopsy (CECAL POLYP) E Colon Biopsy (SIGMOID POLYP) F Colon Biopsy (RECTAL POLYPS X3) Procedures: , Gross/Micro L4/6 Age/ Patient Sex Location Account Attending Physician Nancy Joyce 61/F [id number] Nesha Bryant MD SPEC NUM: [id number] RECD: 05/09/22 STATUS: EDUARD ZARAGOZA NUM: [id number] KATY: 05/09/22- SUBM DR: Nesha Bryant MD ENTERED: 05/09/22-[address] [facility] [address]: SPEC TYPE: Surgical DEPT: S ORDERED: [...] mucosal fold. - Negative for adenoma/dysplasia. Specimen: [id number] Received: 05/09/22 Status: EDUARD Nik Num: [id number] Spec Type: Surgical Subm Dr: Nesha Bryant MD Tissues: A Gastric Biopsy (GASTRIC) B Esophagus Biopsy (DISTAL ESOPHAGUS) C Esophagus Biopsy (PROXIMAL ESOPHAGUS) D Colon Biopsy (CECAL POLYP) E Colon Biopsy (SIGMOID POLYP) F Colon Biopsy (RECTAL POLYPS X3) Procedures: HE/12, Gross/Micro L4/6 Patient: Nancy Joyce [id number] (Continued) Specimen: [id number] Received: 05/09/22 (Continued) Pathological Diagnosis (Continued) Signed (signature on file) Carin Oliveros MD 05/12/22 1130 Specimen: [id number] Received: 05/09/22 Status: EDUARD Zaragoza Num: [id number] Spec Type: Surgical Subm Dr: Nesha Bryant MD Tissues: A Gastric Biopsy (GASTRIC) B Esophagus Biopsy (DISTAL ESOPHAGUS) C Esophagus Biopsy (PROXIMAL ESOPHAGUS) D Colon Biopsy (CECAL POLYP) E Colon Biopsy (SIGMOID POLYP) F Colon Biopsy (RECTAL POLYPS X3) Procedures: ROSI/Barbara, Gross/Micro L4/6 Patient: Nancy Joyce [id number] (Continued) Specimen: [id number] Received: 05/09/22-1038 (Continued) Pathological Diagnosis (Continued) E. Colon, sigmoid, [...] labeled 1. (more content not included)... Normal [facility] XR MODIFIED BARIUM SWALLOWon 03-25-2022 [...] DENNY RINCON Date: 2022-03-25 13:53 Normal [facility] INSULINon 03-13-2022 Insulin 3.9 uIU/mL Normal 2.6-24.9 [facility] Comment on above: Performed By: #### O BSCRN #### [facility] [address] [address] [address] Ambrosio Ramirez XR CSPINE MIN 4 [...] DENNY RINCON Date: 2022-03-13 08:09 Normal [facility] CBC AUTO DIFFon 03-12-2022 BASO # 0.0 103/ul Normal 0.0-0.1 [facility] Comment on above: Performed By: #### C BC #### [facility] [address] [place] [address] Dr. Ambrosio Ramirez Basophils/100 WBC (Bld) 0.7 % Normal 0.2-2.0 [facility] Comment on above: Performed By: #### C BC #### [facility] [address] [address] [address] Ambrosio Ramirez EO # 0.1 103/ul Normal 0.0-0.7 [facility] Comment on above: Performed By: #### C BC #### [facility] [address] [place] [address] Dr. Ambrosio Ramirez Eosinophils/100 WBC (Bld) 0.9 % Normal 0.9-7.0 [facility] Comment on above: Performed By: #### C BC #### [facility] [address] [place] [address] Dr. Ambrosio Ramirez Erythrocyte distribution width (RBC) [Ratio] 12.3 % Normal 11.0-15.0 [facility] Comment on above: Performed By: #### C BC #### [facility] [address] [place] [address] Dr. Ambrosio Ramirez Hematocrit (Bld) [Volume fraction] 46.0 % Normal 36.0-48.0 [facility] Comment on above: Performed By: #### C BC #### [facility] [address] [place] [address] Dr. Ambrosio Ramirez Hemoglobin (Bld) [Mass/Vol] 15.2 g/dL Normal 12.0-16.0 [facility] Comment on above: Performed By: #### C BC #### [facility] [address] [place] [address] Dr. Ambrosio Ramirez IG # 0.03 10e3/ul Normal 0.00-0.03 [facility] Comment on above: Performed By: #### C BC #### [facility] [address] [place] [address] Dr. Ambrosio Ramirez IG % 0.5 % Normal 0.0-0.5 [facility] Comment on above: Performed By: #### C BC #### [facility] [address] [place] [address] Dr. Ambrosio Ramirez LYMPH # 2.0 103/ul Normal 1.2-3.8 [facility] Comment on above: Performed By: #### C BC #### [facility] [address] [place] [address] Dr. Ambrosio Ramirez Lymphocytes/100 WBC (Bld) 35.0 % Normal 20.5-60.0 [facility] Comment on above: Performed By: #### C BC #### [facility] [address] [place] [address] Dr. Ambrosio Ramirez MANUAL DIFF REQ NO Normal [facility] Comment on above: Performed By: #### C BC #### [facility] [address] [place] [address] Dr. Ambrosio Ramirez MCH (RBC) [Entitic mass] 33.8 pg Normal 26.7-34.0 [facility] Comment on above: Performed By: #### C BC #### [facility] [address] [place] [address] Dr. Ambrosio Ramirez MCHC (RBC) [Mass/Vol] 33.0 g/dL Normal 29.9-35.2 [facility] Comment on above: Performed By: #### C BC #### [facility] [address] [place] [address] Dr. Ambrosio Ramirez MCV (RBC) [Entitic vol] 102.2 fL Critically high 81.0-99.0 [facility] Comment on above: Performed By: #### C BC #### [facility] [address] [place] [address] Dr. Ambrosio Ramirez MONO # 0.4 103/ul Normal 0.3-0.8 [facility] Comment on above: Performed By: #### C BC #### [facility] [address] [place] [address] Dr. Ambrosio Ramirez Monocytes/100 WBC (Bld) 7.2 % Normal 1.7-12.0 [facility] Comment on above: Performed By: #### C BC #### [facility] [address] [place] [address] Dr. Ambrosio Ramirez NEUT # 3.2 103/ul Normal 1.4-6.5 [facility] Comment on above: Performed By: #### C BC #### [facility] [address] [place] [address] Dr. Ambrosio Ramirez Neutrophils/100 WBC (Bld) 55.7 % Normal 43.0-75.0 [facility] Comment on above: Performed By: #### C BC #### [facility] [address] [place] [address] Dr. Ambrosio Ramirez Platelet mean volume (Bld) [Entitic vol] 9.1 fL Critically low 9.5-13.5 [facility] Comment on above: Performed By: #### C BC #### [facility] [address] [place] [address] Dr. Ambrosio Ramirez PLT 234 103/ul Normal 150-450 [facility] Comment on above: Performed By: #### C BC #### [facility] [address] [place] [address] Dr. Ambrosio Ramirez RBC 4.50 106/ul Normal 4.20-5.40 [facility] Comment on above: Performed By: #### C BC #### [facility] [address] [place] [address] Dr. Ambrosio Ramirez WBC 5.7 103/ul Normal 4.0-11.0 [facility] Comment on above: Performed By: #### C BC #### [facility] [address] [place] [address] Dr. Ambrosio Ramirez FREE THYROXINE INDEX T7on FTI 2.41 Normal 1.30-4.50 [facility] Comment on above: Performed By: #### A 1C #### [facility] [address] [place] [address] Dr. Ambrosio Ramirez T3U 33.0 % Normal 30.0-39.0 [facility] Comment on above: Performed By: #### A 1C #### [facility] [address] [place] [address] Dr. Ambrosio Ramirez T4 [Mass/Vol] 7.30 ug/dL Normal 4.80-13.90 [facility] Comment on above: Performed By: #### A 1C #### [facility] [address] [place] [address] Dr. Ambrosio Ramirez GLYCOHEMOGLOBIN A1Con 2022 ADA RECOMMENDATION SEE BELOW Normal [facility] Comment on above: Result Comment: ADA RECOMMENDED LIMIT 4.0 - 6.0 ADA THERAPEUTIC TARGET < 7.0 ACTION SUGGESTED > 7.0 Performed By: #### A 1C #### [facility] [address] [address] [address] Ambrosio Ramirez Glucose [Mass/Vol] 100 mg/dL Normal [facility] Comment on above: Performed By: #### A 1C #### [facility] [address] [place] [address] Dr. Ambrosio Ramirez HbA1c (Bld) [Mass fraction] 5.1 % Normal 4.5-6.2 [facility] Comment on above: Performed By: #### A 1C #### [facility] [address] [place] [address] Dr. Ambrosio Ramirez IRONon 03-12-2022 Iron [Mass/Vol] 148.0 ug/dL Normal 50.0-170.0 [facility] Comment on above: Performed By: #### O BSCRN #### [facility] [address] [place] [address] Dr. Amborsio Ramirez LIPID PROFILEon 03-12-2022 CHOL-HDL RATIO NORM SEE BELOW Normal [facility] Comment on above: Result Comment: 3.3 - 4.4 LOW RISK 4.4 - 7.1 AVERAGE RISK 7.1 - 11.0 MODERATE RISK >11.0 HIGH RISK Performed By: #### A 1C #### [facility] [address] [place] [address] Dr. Ambrosio Ramirez Cholesterol [Mass/Vol] 234 mg/dL Critically high <=200 [facility] Comment on above: Performed By: #### A 1C #### [facility] [address] [place] [address] Dr. Ambrosio Ramirez Cholesterol in HDL [Mass/Vol] 71 mg/dL Critically high 40-60 [facility] Comment on above: Performed By: #### A 1C #### [facility] [address] [place] [address] Dr. Ambrosio Ramirez Cholesterol in LDL [Mass/Vol] 132.4 mg/dL Normal [facility] Comment on above: Performed By: #### A 1C #### [facility] [address] [place] [address] Dr. Ambrosio Ramirez Cholesterol.total/Cho lesterol in HDL [Mass ratio] 3.3 {ratio} Normal [facility] Comment on above: Performed By: #### A 1C #### [facility] [address] [address] [address] Ambrosio Ramirez HDL NORMAL > or = 60 mg/dl - LOW CARDIOVASCULAR RISK <40 mg/dl - HIGH CARDIOVASCULAR RISK Normal [facility] Comment on above: Performed By: #### A 1C #### [facility] [address] [address] [address] Ambrosio Ramirez LDL CALC NORMAL SEE BELOW Normal [facility] Comment on above: Result Comment: <100 mg/dl OPTIMAL 100 - 129 mg/dl NEAR OR ABOVE OPTIMAL 130 - 159 mg/dl BORDERLINE HIGH 160 - 189 mg/dl HIGH >190 mg/dl VERY HIGH Performed By: #### A 1C #### [facility] [address] [place] [address] Dr. Ambrosio Ramirez Triglyceride [Mass/Vol] 153 mg/dL Critically high <=150 [facility] Comment on above: Performed By: #### A 1C #### [facility] [address] [place] [address] Dr. Ambrosio Ramirez VLDL CALC 30.6 mg/dL Normal [facility] Comment on above: Performed By: #### A 1C #### [facility] [address] [place] [address] Dr. Ambrosio Ramirez PROF 14(COMP METB)on 023 Albumin [Mass/Vol] 4.2 g/dL Normal 3.4-5.0 [facility] Comment on above: Performed By: #### A 1C #### [facility] [address] [place] [address] Dr. Ambrosio Ramirez Albumin/Globulin [Mass ratio] 1.3 {ratio} Normal [facility] Comment on above: Performed By: #### A 1C #### [facility] [address] [place] [address] Dr. Ambrosio Ramirez ALP [Catalytic activity/Vol] 62 U/L Normal 46-116 [facility] Comment on above: Performed By: #### A 1C #### [facility] [address] [address] [address] Ambrosio Ramirez ALT [Catalytic activity/Vol] 27 U/L Normal 14-59 [facility] Comment on above: Performed By: #### A 1C #### [facility] [address] [place] [address] Dr. Ambrosio Ramirez Anion gap [Moles/Vol] 12.8 mmol/L Normal [facility] Comment on above: Performed By: #### A 1C #### [facility] [address] [address] [address] Ambrosio Ramirez AST [Catalytic activity/Vol] 39 U/L Critically high 15-37 [facility] Comment on above: Performed By: #### A 1C #### [facility] [address] [place] [address] Dr. Ambrosio Ramirez Bilirubin [Mass/Vol] 0.4 mg/dL Normal 0.2-1.0 [facility] Comment on above: Performed By: #### A 1C #### [facility] [address] [place] [address] Dr. Ambrosio Ramirez Calcium [Mass/Vol] 9.1 mg/dL Normal 8.5-10.1 [facility] Comment on above: Performed By: #### A 1C #### [facility] [address] [place] [address] Dr. Ambrosio Ramirez Chloride [Moles/Vol] 103 mmol/L Normal 98-107 [facility] Comment on above: Performed By: #### A 1C #### [facility] [address] [place] [address] Dr. Ambrosio Ramirez CO2 [Moles/Vol] 30.5 mmol/L Normal 21.0-32.0 [facility] Comment on above: Performed By: #### A 1C #### [facility] [address] [place] [address] Dr. Ambrosio Ramirez Creatinine [Mass/Vol] 0.54 mg/dL Critically low 0.55-1.02 [facility] Comment on above: Performed By: #### A 1C #### [facility] [address] [place] [address] Dr. Ambrosio Ramirez EGFR-AF [place]ER >60 Normal >=60 [facility] Comment on above: Performed By: #### A 1C #### [facility] [address] [address] [address] Ambrosio Ramirez EGFR-NON AF [place]ER >60 Normal >=60 [facility] Comment on above: Performed By: #### A 1C #### [facility] [address] [address] [address] Ambrosio Ramirez Globulin (S) [Mass/Vol] 3.3 g/dL Normal [facility] Comment on above: Performed By: #### A 1C #### [facility] [address] [address] [address] Ambrosio Ramirez Glucose [Mass/Vol] 88 mg/dL Normal 74-106 [facility] Comment on above: Performed By: #### A 1C #### [facility] [address] [place] [address] Dr. Ambrosio Ramirez Potassium [Moles/Vol] 4.3 mmol/L Normal 3.5-5.1 [facility] Comment on above: Performed By: #### A 1C #### [facility] [address] [address] [address] Ambrosio Ramirez Protein [Mass/Vol] 7.5 g/dL Normal 6.4-8.2 [facility] Comment on above: Performed By: #### A 1C #### [facility] [address] [address] [address] Ambrosio Ramirez Sodium [Moles/Vol] 142 mmol/L Normal 136-145 [facility] Comment on above: Performed By: #### A 1C #### [facility] [address] [address] [address] Ambrosio Ramirez Urea nitrogen [Mass/Vol] 9.0 mg/dL Normal 7.0-18.0 [facility] Comment on above: Performed By: #### A 1C #### [facility] [address] [address] [address] Ambrosio Ramirez Urea nitrogen/Creatinine [Mass ratio] 16.7 mg/mg Normal [facility] Comment on above: Performed By: #### A 1C #### [facility] [address] [place], [place] [address] Dr. Ambrosio Ramirez TSHon 03-12-2022 TSH 1.934 uIU/mL Normal 0.358-3.740 [facility] Comment on above: Performed By: #### A 1C #### [facility] [address] [place], [place] [address] Dr. Ambrosio Ramirez XR TSPINE 3 VIEWSon [...] GEORGE CATALAN Date: 2022-03-12 17:07 Normal [facility] Covid-19 PCR (CVDTB)on SARS-CoV-2 (COVID-19) RNA JAYY+probe Ql (Unsp spec) Not detected Normal NOT DETECTED [facility] Comment on above: Result Comment: When diagnostic [...] for this test is supported by the Animal Sticker of Health and Human Service's declaration that [...] used). Performed By: #### C VDTBH #### [facility] [address] [place] [address] Dr. Ambrosio Ramirez INFLUENZA A AND B AGon 01-27 INFLUENZA A AG Negative Normal NEGATIVE SEE COMMENT [facility] Comment on above: Performed By: #### I NFLUAB #### [facility] [address] [place] [address] Dr. Ambrosio Ramirez INFLUENZA B AG Negative Normal NEGATIVE SEE COMMENT [facility] Comment on above: Performed By: #### I NFLUAB #### [facility] [address] [place] [address] Dr. Ambrosio Ramirez INTERNAL CONTROLS Within Normal Limits Normal Wi thin Normal Limits [facility] Comment on above: Performed By: #### I NFLUAB #### [facility] [address] [place] [address] Dr. Ambrosio Ramirez XR CHEST 2 Von [...] GEORGE ROWE Date: 2022-01-27 14:42 Normal [facility] RPR QUANTon 08-26-2021 Rapid Plasma Reagin, Quant Non-Reactive Normal NonRea<1:1 [facility] Comment on above: Result Comment: Plea se Note: This test does not meet current guidelines for screening and diagnosis of syphilis. This test is intended for following treatment response in patients being treated for syphilis infection. To screen for syphilis infection, a reflex cascade that includes both RPR and a treponema-specific assay should be utilized, such as Treponema pallidum (Syphilis) Screening Dane (246725) or Rapid Plasma Reagin (RPR) Test With Reflex to Quantitative RPR and Confirmatory Treponema pallidum Antibodies (718779). Performed By: #### R PRQ #### [facility] [address] [place] [address] Dr. Ambrosio Ramirez HEP B SURFACE ANTIGEN SCREEN on 08-24-2021 HBsAg Screen Negative Normal Negative [facility] Comment on above: Performed By: #### H BSANS #### [facility] [address] [place] [address] Dr. Ambrosio Ramirez HEPATITIS C ANTIBODYon 08-24 Hep C Virus Ab <0.1 Normal 0.0-0.9 [facility] Comment on above: Result Comment: [...] Hepatitis C Virus (HCV) RNA, Diagnosis, JAYY (003171) and Hepatitis C Virus (HCV) Antibody with reflex to Quantitative Real-time PCR (930980). Performed By: #### H CV #### [facility] [address] [place] [address] Dr. Ambrosio Ramirez INSULINon 08-23-2021 Insulin 5.0 uIU/mL Normal 2.6-24.9 [facility] Comment on above: Performed By: #### A 1C #### [facility] [address] [place] [address] Dr. Ambrosio Ramirez OCC BLD IMMUNO SCREENon OCCULT BLOOD Negative Normal NEGATIVE [facility] Comment on above: Performed By: #### O BSCRN #### [facility] [address] [place] [address] Dr. Ambrosio Ramirez CBC AUTO DIFFon 08-22-2021 BASO # 0.1 103/ul Normal 0.0-0.1 [facility] Comment on above: Performed By: #### O BSCRN #### [facility] [address] [place] [address] Dr. Ambrosio Ramirez Basophils/100 WBC (Bld) 1.0 % Normal 0.2-2.0 [facility] Comment on above: Performed By: #### O BSCRN #### [facility] [address] [place] [address] Dr. Ambrosio Ramirez EO # 0.1 103/ul Normal 0.0-0.7 [facility] Comment on above: Performed By: #### O BSCRN #### [facility] [address] [place] [address] Dr. Ambrosio Ramirez Eosinophils/100 WBC (Bld) 1.8 % Normal 0.9-7.0 [facility] Comment on above: Performed By: #### O BSCRN #### [facility] [address] [place] [address] Dr. Ambrosio Ramirez Erythrocyte distribution width (RBC) [Ratio] 11.9 % Normal 11.0-15.0 [facility] Comment on above: Performed By: #### O BSCRN #### [facility] [address] [place] [address] Dr. Ambrosio Ramirez Hematocrit (Bld) [Volume fraction] 48.6 % Critically high 36.0-48.0 [facility] Comment on above: Performed By: #### O BSCRN #### [facility] [address] [place] [address] Dr. Ambrosio Ramirez Hemoglobin (Bld) [Mass/Vol] 16.3 g/dL Critically high 12.0-16.0 [facility] Comment on above: Performed By: #### O BSCRN #### [facility] [address] [place] [address] Dr. Ambrosio Ramirez IG # 0.03 10e3/ul Normal 0.00-0.03 [facility] Comment on above: Performed By: #### O BSCRN #### [facility] [address] [place] [address] Dr. Ambrosio Ramirez IG % 0.6 % Critically high 0.0-0.5 [facility] Comment on above: Performed By: #### O BSCRN #### [facility] [address] [place] [address] Dr. Ambrosio Ramirez LYMPH # 2.4 103/ul Normal 1.2-3.8 [facility] Comment on above: Performed By: #### O BSCRN #### [facility] [address] [place] [address] Dr. Ambrosio Ramirez Lymphocytes/100 WBC (Bld) 46.9 % Normal 20.5-60.0 [facility] Comment on above: Performed By: #### O BSCRN #### [facility] [address] [place] [address] Dr. Ambrosio Ramirez MANUAL DIFF REQ NO Normal [facility] Comment on above: Performed By: #### O BSCRN #### [facility] [address] [place] [address] Dr. Ambrosio Ramirez MCH (RBC) [Entitic mass] 34.9 pg Critically high 26.7-34.0 [facility] Comment on above: Performed By: #### O BSCRN #### [facility] [address] [place] [address] Dr. Ambrosio Ramirez MCHC (RBC) [Mass/Vol] 33.5 g/dL Normal 29.9-35.2 [facility] Comment on above: Performed By: #### O BSCRN #### [facility] [address] [place] [address] Dr. Ambrosio Ramirez MCV (RBC) [Entitic vol] 104.1 fL Critically high 81.0-99.0 [facility] Comment on above: Performed By: #### O BSCRN #### [facility] [address] [place] [address] Dr. Ambrosio Ramirez MONO # 0.4 103/ul Normal 0.3-0.8 [facility] Comment on above: Performed By: #### O BSCRN #### [facility] [address] [place] [address] Dr. Ambrosio Ramirez Monocytes/100 WBC (Bld) 8.2 % Normal 1.7-12.0 [facility] Comment on above: Performed By: #### O BSCRN #### [facility] [address] [place] [address] Dr. Ambrosio Ramirez NEUT # 2.1 103/ul Normal 1.4-6.5 [facility] Comment on above: Performed By: #### O BSCRN #### [facility] [address] [address] [address] Ambrosio Ramirez Neutrophils/100 WBC (Bld) 41.5 % Critically low 43.0-75.0 [facility] Comment on above: Performed By: #### O BSCRN #### [facility] [address] [address] [address] Ambrosio Ramirez Platelet mean volume (Bld) [Entitic vol] 9.3 fL Critically low 9.5-13.5 [facility] Comment on above: Performed By: #### O BSCRN #### [facility] [address] [address] [address] Ambrosio Ramirez PLT 210 103/ul Normal 150-450 [facility] Comment on above: Performed By: #### O BSCRN #### [facility] [address] [address] [address] Ambrosio Ramirez RBC 4.67 106/ul Normal 4.20-5.40 [facility] Comment on above: Performed By: #### O BSCRN #### [facility] [address] [address] [address] Ambrosio Ramirez WBC 5.0 103/ul Normal 4.0-11.0 [facility] Comment on above: Performed By: #### O BSCRN #### [facility] [address] [address] [address] Ambrosio Ramirez FREE THYROXINE INDEX T7on FTI 2.72 Normal 1.30-4.50 [facility] Comment on above: Performed By: #### O BSCRN #### [facility] [address] [address] [address] Ambrosio Ramirez T3U 32.0 % Normal 30.0-39.0 [facility] Comment on above: Performed By: #### O BSCRN #### [facility] [address] [address] [address] Ambrosio Ramirez T4 [Mass/Vol] 8.50 ug/dL Normal 4.80-13.90 [facility] Comment on above: Performed By: #### O BSCRN #### [facility] [address] [address] [address] Ambrosio Ramirez GLYCOHEMOGLOBIN A1Con 2021 ADA RECOMMENDATION SEE BELOW Normal [facility] Comment on above: Result Comment: ADA RECOMMENDED LIMIT 4.0 - 6.0 ADA THERAPEUTIC TARGET < 7.0 ACTION SUGGESTED > 7.0 Performed By: #### A 1C #### [facility] [address] [address] [address] Ambrosio Ramirez Glucose [Mass/Vol] 108 mg/dL Normal [facility] Comment on above: Performed By: #### A 1C #### [facility] [address] [place] [address] Dr. Ambrosio Ramirez HbA1c (Bld) [Mass fraction] 5.4 % Normal 4.5-6.2 [facility] Comment on above: Performed By: #### A 1C #### [facility] [address] [address] [address] Ambrosio Ramirez HIV 1/2 RAPID (EXPOSURE ONLY )on 08-22-2021 HIV AB Negative Normal [facility] Comment on above: Performed By: #### A 1C #### [facility] [address] [address] [address] Ambrosio Ramirez HIV AG Negative Normal [facility] Comment on above: Performed By: #### A 1C #### [facility] [address] [place] [address] Dr. Ambrosio Ramirez INTERNAL CONTROLS Within Normal Limits Normal Wi thin Normal Limits [facility] Comment on above: Performed By: #### A 1C #### [facility] [address] [place] [address] Dr. Ambrosio Ramirez RAPID HIV INFO SEE BELOW Normal [facility] Comment on above: Result Comment: This test is used for the initial screening of the exposure source. Confirmation of all results will be obtained through reference lab testing. Performed By: #### A 1C #### [facility] [address] [place] [address] Dr. Ambrosio Ramirez IRONon 06-30-2022 Iron [Mass/Vol] 137.0 ug/dL Normal 50.0-170.0 [facility] Comment on above: Performed By: #### I HAMLET #### [facility] [address] [address] [address] Ambrosio Ramirez LIPID PROFILEon 08-22-2021 CHOL-HDL RATIO NORM SEE BELOW Normal [facility] Comment on above: Result Comment: 3.3 - 4.4 LOW RISK 4.4 - 7.1 AVERAGE RISK 7.1 - 11.0 MODERATE RISK >11.0 HIGH RISK Performed By: #### O BSCRN #### [facility] [address] [address] [address] Ambrosio Ramirez Cholesterol [Mass/Vol] 251 mg/dL Critically high <=200 [facility] Comment on above: Performed By: #### O BSCRN #### [facility] [address] [address] [address] Ambrosio Ramirez Cholesterol in HDL [Mass/Vol] 67 mg/dL Critically high 40-60 [facility] Comment on above: Performed By: #### O BSCRN #### [facility] [address] [address] [address] Ambrosio Ramirez Cholesterol in LDL [Mass/Vol] 154.8 mg/dL Normal [facility] Comment on above: Performed By: #### O BSCRN #### [facility] [address] [address] [address] Ambrosio Ramirez Cholesterol.total/Cho lesterol in HDL [Mass ratio] 3.7 {ratio} Normal [facility] Comment on above: Performed By: #### O BSCRN #### [facility] [address] [address] [address] Ambrosio Ramirez HDL NORMAL > or = 60 mg/dl - LOW CARDIOVASCULAR RISK <40 mg/dl - HIGH CARDIOVASCULAR RISK Normal [facility] Comment on above: Performed By: #### O BSCRN #### [facility] [address] [address] [address] Ambrosio Ramirez LDL CALC NORMAL SEE BELOW Normal [facility] Comment on above: Result Comment: <100 mg/dl OPTIMAL 100 - 129 mg/dl NEAR OR ABOVE OPTIMAL 130 - 159 mg/dl BORDERLINE HIGH 160 - 189 mg/dl HIGH >190 mg/dl VERY HIGH Performed By: #### O BSCRN #### [facility] [address] [place] [address] Dr. Ambrosio Ramirez Triglyceride [Mass/Vol] 146 mg/dL Normal <=150 [facility] Comment on above: Performed By: #### O BSCRN #### [facility] [address] [place] [address] Dr. Ambrosio Ramirez VLDL CALC 29.2 mg/dL Normal [facility] Comment on above: Performed By: #### O BSCRN #### [facility] [address] [place] [address] Dr. Ambrosio Ramirez PROF 14(COMP METB)on 022 Albumin [Mass/Vol] 4.3 g/dL Normal 3.4-5.0 [facility] Comment on above: Performed By: #### O BSCRN #### [facility] [address] [place] [address] Dr. Ambrosio Ramirez Albumin/Globulin [Mass ratio] 1.2 {ratio} Normal [facility] Comment on above: Performed By: #### O BSCRN #### [facility] [address] [place] [address] Dr. Ambrosio Ramirez ALP [Catalytic activity/Vol] 57 U/L Normal 46-116 [facility] Comment on above: Performed By: #### O BSCRN #### [facility] [address] [place] [address] Dr. Ambrosio Ramirez ALT [Catalytic activity/Vol] 56 U/L Normal 14-59 [facility] Comment on above: Performed By: #### O BSCRN #### [facility] [address] [place] [address] Dr. Ambrosio Ramirez Anion gap [Moles/Vol] 11.5 mmol/L Normal [facility] Comment on above: Performed By: #### O BSCRN #### [facility] [address] [place] [address] Dr. Ambrosio Ramirez AST [Catalytic activity/Vol] 75 U/L Critically high 15-37 [facility] Comment on above: Performed By: #### O BSCRN #### [facility] [address] [place] [address] Dr. Ambrosio Ramirez Bilirubin [Mass/Vol] 0.4 mg/dL Normal 0.2-1.0 [facility] Comment on above: Performed By: #### O BSCRN #### [facility] [address] [place] [address] Dr. Ambrosio Ramirez Calcium [Mass/Vol] 8.7 mg/dL Normal 8.5-10.1 [facility] Comment on above: Performed By: #### O BSCRN #### [facility] [address] [place] [address] Dr. Ambrosio Ramirez Chloride [Moles/Vol] 105 mmol/L Normal 98-107 [facility] Comment on above: Performed By: #### O BSCRN #### [facility] [address] [place] [address] Dr. Ambrosio Ramirez CO2 [Moles/Vol] 30.3 mmol/L Normal 21.0-32.0 [facility] Comment on above: Performed By: #### O BSCRN #### [facility] [address] [place] [address] Dr. Ambrosio Raimrez Creatinine [Mass/Vol] 0.67 mg/dL Normal 0.55-1.02 [facility] Comment on above: Performed By: #### O BSCRN #### [facility] [address] [place] [address] Dr. Ambrosio Ramirez EGFR-AF [place] >60 Normal >=60 [facility] Comment on above: Performed By: #### O BSCRN #### [facility] [address] [place] [address] Dr. Ambrosio Ramirez EGFR-NON AF [place] >60 Normal >=60 [facility] Comment on above: Performed By: #### O BSCRN #### [facility] [address] [place] [address] Dr. Ambrosio Ramirez Globulin (S) [Mass/Vol] 3.7 g/dL Normal [facility] Comment on above: Performed By: #### O BSCRN #### [facility] [address] [place] [address] Dr. Ambrosio Ramirez Glucose [Mass/Vol] 93 mg/dL Normal 74-106 [facility] Comment on above: Performed By: #### O BSCRN #### [facility] [address] [place] [address] Dr. Ambrosio Ramirez Potassium [Moles/Vol] 4.8 mmol/L Normal 3.5-5.1 [facility] Comment on above: Performed By: #### O BSCRN #### [facility] [address] [place] [address] Dr. Ambrosio Ramirez Protein [Mass/Vol] 8.0 g/dL Normal 6.4-8.2 [facility] Comment on above: Performed By: #### O BSCRN #### [facility] [address] [place] [address] Dr. Ambrosio Ramirez Sodium [Moles/Vol] 142 mmol/L Normal 136-145 [facility] Comment on above: Performed By: #### O BSCRN #### [facility] [address] [place] [address] Dr. Ambrosio Ramirez Urea nitrogen [Mass/Vol] 8.0 mg/dL Normal 7.0-18.0 [facility] Comment on above: Performed By: #### O BSCRN #### [facility] [address] [place] [address] Dr. Ambrosio Ramirez Urea nitrogen/Creatinine [Mass ratio] 11.9 mg/mg Normal [facility] Comment on above: Performed By: #### O BSCRN #### [facility] [address] [place] [address] Dr. Ambrosio Ramirez TSHon 08-22-2021 TSH 2.117 uIU/mL Normal 0.358-3.740 [facility] Comment on above: Performed By: #### O BSCRN #### [facility] [address] [place] [address] Dr. Ambrosio Ramirez XR CSPINE MIN 4 VIEWSon 06-3 XR CSPINE MIN 4 VIEWS EXAMINATION: XR [...] Cervical fusion hardware with no mechanical failure [id number] degenerative changes of the cervical thoracic spine Electronically authenticated by: GEORGE ROWE Date: 2021-08-22 21:07 Normal [facility] Vital Signs Date Time Vital Sign Value Performing Clinician Facility 05-09-2022 10:14-0400 Diastolic blood pressure 85 mm[Hg] [employer] Ama Edwards Work Phone: [facility] 05-09-2022 10:14-0400 Heart rate 99 /min [employer] Ama Edwards Work Phone: [facility] 05-09-2022 10:14-0400 Respiratory rate 18 /min [employer] Ama Edwards Work Phone: [facility] 05-09-2022 10:14-0400 SaO2% (BldA) [Mass fraction] 99 % [employer] Ama Edwards Work Phone: [facility] 05-09-2022 10:14-0400 Systolic blood pressure 124 mm[Hg] [employer]C Ama Gordillomer Work Phone: [facility] 05-09-2022 08:04-0400 Body height 180.34 cm [employer] Ama Edwards Work Phone: [facility] 05-09-2022 08:04-0400 Body weight 58.96 kg [employer]C Ama Gordillomer Work Phone: [facility] 05-01-2022 11:15-0500 Body height Imad Asaad Other [facility] Other 05-01-2022 11:15-0500 Body mass index (BMI) [Ratio] 18.13 kg/m2 Imad Asaad Other [facility] Other 05-01-2022 11:15-0500 Body weight 58.97 kg Imad Asaad Other [facility] Other 05-01-2022 11:15-0500 Diastolic blood pressure 102 mm[Hg] Imad Asaad Other [facility] Other 05-01-2022 11:15-0500 Respiratory rate 16 /min Imad Asaad Other [facility] Other 05-01-2022 11:15-0500 Systolic blood pressure 158 mm[Hg] Imad Asaad Other [facility] Other Encounters Encounter Date Encounter Type Care Provider Facility Start: 08-31-2023 End: 08-31-2023 ambulatory Manuel Reynaga MD Facility: [facility] Start: 08-17-2023 End: 08-17-2023 ambulatory Manuel Reynaga MD Facility: [facility] Start: 07-06-2023 End: 07-06-2023 ambulatory Manuel Reynaga MD Facility: [facility] Start: 12-15-2022 End: 12-15-2022 ambulatory Manuel Reynaga MD Facility: [facility] Start: 11-17-2022 End: 11-17-2022 ambulatory Manuel Reynaga MD Facility: [facility] Start: 11-10-2022 End: 11-10-2022 ambulatory Manuel Reynaga MD Facility: [facility] Start: 05-09-2022 End: 05-09-2022 ambulatory Ama Edwards Facility:[facility] Start: 05-09-2022 End: 05-09-2022 Admission to same day surgery center [employer]-Fabricio Edwards Work Phone: [facility] Work Phone: Start: 05-09-2022 End: 05-09-2022 ambulatory [employer] Ama Edwards Work Phone: [facility] Work Phone: Start: 05-02-2022 End: 05-02-2022 ambulatory Imad Asaad Other [facility] Other Start: 05-02-2022 Telephone encounter Imad Asaad [facility] Start: 05-01-2022 End: 05-01-2022 ambulatory Imad Asaad Other [facility] Other Start: 05-01-2022 Office consultation new/estab patient [...] Procedure Detail Performing Clinician Start: 05-09-2022 Esophagogastroduodenoscopy [employer] Ama patel Work Phone: Screening for malign ant neoplasm of colon Imad Asaad Other Plan of Treatment Date Care Activity Detail Author Start: 05-09-2022 [facility] Patient Education Colon Polyps H emorrhoids (DC) Diverticulosis (DC) Gastritis (DC) [facility] Work Phone: Payers Date Payer Category Payer Self-pay 2022 Unknown 1960 Unknown [id number] 2.16.84 [id number] 1960 Unknown [id number] 2.16.84 [id number] 1960 Unknown [id number] 2.16.84 [id number] 1960 Unknown [id number] 2.16.84 [id number] 1960 Unknown [id number] 2.16.84 0.1.278968.3.579.2.593 1960 Unknown [id number] 2.16.84 [id number] 1960 Unknown [id number] 2.16.84 [id number] 1960 Unknown [id number] 2.16. [id number] 1960 Unknown [id number] 2.16. [id number] 1960 Unknown [id number] 2.16. [id number] 1960 Unknown [id number] 2.16. 840.1.179427.3.579.2.196 1960 Unknown [id number] 2.16. [id number] 1960 Unknown [id number] 2.16. [id number] 1957 Medicare [id number] 1957 Unknown [id number] 1957 Unknown [id number] 1957 Unknown [id number] Unknown [id number] 2.16.8 [id number] Social History Date Type Detail Facility Start: 05-09-2022 Tobacco smoking status NHIS Smoker (finding) [facility] Start: 1960 Sex Assigned At Female F [facility] Sex Assigned At Sex Assigned At Bir th [facility] Other Goals Date Patient Goal Desired Activity /State Procedure note 05-09-2022 Note Date & Type Note Facility 05-09-2022 Procedure note [facility] Evaluation note 05-01-2022 Note Date & Type Note Facility 05-01-2022 Evaluation note Encounter Date Diagnosis Assessment Notes Apr, Dysphagia (ICD-10 - R13.10) Apr, Weight loss (ICD-10 - R63.4) Apr, Colon cancer screening (ICD-10 - Z12.11) [facility] Other Evaluation note Note Date & Type Note Facility Evaluation note No assessment information availa [facility] Work Phone: Evaluation note Note Date & Type Note Facility Evaluation note No Information [facility] Other History general Narrative - Reported Note Date & Type Note Facility History general Narrative - Reported Type Medical History Anxiety/Depression Surgical History Neck surgery Surgical History Tonsillectomy Hospitalization History See above [facility] Other Hospital Discharge instructions Note Date & [...] NOT operate machinery such as power tools, [employer] mowers, snow blowers, sewing machines, etc. for [...] -Follow up with PCP. - Office number [phone]. [facility] Work Phone: Chief Complaint and Reason [...] section and content) DATE CREATED AUTHOR 05/20/2022 [facility] DATE CREATED AUTHOR AUTHOR'S ORGANIZ ATION 07/02/2022 [facility] DATE CREATED AUTHOR AUTHOR'S ORGANIZ ATION 09/12/2023 [facility] FOR RECORDS PERTAINING TO PATIENTS WHO ARE [...] BE BASED ON THE PRIMARY CLINICAL RECORDS. [facility]. provides no warranty or guarantee of the accuracy or completeness of information in this document.
[2023-09-21 07:36] VITALS: BP 133/86; PULSE 91; TEMP 36.2; O2SAT 95
[2023-09-21] MEDS: 0.9 % SODIUM CHLORIDE 500 ML IV (07:50)
[2023-09-21] MEDS: BUPIVACAINE HCL 0.25% PF 25 MG/10 ML VIAL 2 ML INJ (08:28)
[2023-09-21] MEDS: DEXAMETHASONE SOD PHOS 10 MG/ML VIAL INJ (08:28)
[2023-09-21] MEDS: LIDOCAINE HCL 2% 400 MG/20 ML MDV 5 ML INJ (08:28)
--- NOTE | 2023-09-21 08:34 | P.ON_ITS ---
Date of procedure: 09/21/23 Pre-op diagnosis: Pain due to cervical spondylosis Post-op diagnosis: same as pre-op Procedure: Procedure: Right C2-3, 3-4 radiofrequency ablation Medications: Bupivacaine 0.25% 3cc, lidocaine 2% 3cc, dexamethasone 10mg The patient was seen and examined in the preoperative holding area.? The site was marked.? Written informed consent was obtained and placed on the chart.? The patient was brought to the medical procedure unit and placed in the prone position.? A timeout was completed verifying correct patient, procedure, positioning, and special requirements.? The skin overlying the target points, the designated medial branch, were prepped and draped in the usual sterile fashion.? The target point was achieved with a 20-gauge 15 cm with a 10 mm curved active tip radiofrequency cannula under direct fluoroscopic visualization.? The needle was inserted at level C2 on the right side. Needle tip position was confirmed with lateral fluoroscopic position.? Motor stimulation was carried out at 2 Hz up to 5 volts with the absence of extremity activity.? This was repeated at level C3, 4 on right side.?? Sensory stimulation was carried out.? Concordant pain was realized at the above- mentioned sites.? Then radiofrequency lesioning was carried out times 90 seconds at 80 degrees times 2 lesions at each level.? The radiofrequency probe was removed prior to cannula removal.? The above-mentioned injectate was placed in 1 mL increments.? The needle was removed.? Insertion sites were covered.? The patient was taken to the postoperative recovery area and monitored for an appropriate length of time before being found suitable for discharge in the company of a responsible adult. Anesthesia: MAC Surgeon: Manuel Reynaga Pathology: none sent Condition: stable Disposition: no change
[2023-09-21 08:37] VITALS: BP 135/86; PULSE 88; O2SAT 95
[2023-09-21 08:40] VITALS: BP 118/72; PULSE 91; O2SAT 95
== END 2023-09-21 08:58 | disposition home or self-care (01) ==
LOC: SURGOUT 07:21
PROVIDERS: PCP Nurse Practitioner Family; Visit Provider Anesthesiology
DX: M47.812 Spondylosis without myelopathy or radiculopathy, cervical region (principal)
CPT/HCPCS: 64633; 64634; J0665; J1100; J2250; J2704; J3010

== ENCOUNTER 2023-09-25 12:44 | Outpatient (OUT) | payer MEDICARE, OTHER, MEDICAID, SELFPAY ==
--- NOTE | 2023-09-25 12:44 | XR_ITS ---
[address] [address] Patient Name: CARLA ABDI MRN: [id number] date: 1960 Sex: F Assigned Patient Location: [facility] Current Patient Location: Accession/Order Number: [id number] Exam Date: 09/25/2023 13:35 Report Date: 09/26/2023 06:37 At the request of: SHAD REID Procedure: XR chest 2V EXAMINATION: XR chest 2V HISTORY: Preop exam COMPARISON: XR chest 01/27/2022 FINDINGS: LUNGS: No significant pulmonary parenchymal abnormalities. VASCULATURE: No increased pulmonary vasculature. PLEURA: No pneumothorax, effusion, or pleural thickening. CARDIAC: No cardiomegaly or cardiac silhouette abnormality. MEDIASTINUM: No visible mass or adenopathy. BONES: Anterior and posterior mechanical fusion of the visible cervical spine. OTHER: Negative. XR/XR chest 2V IMPRESSION: 1. No acute cardiac pulmonary process. Electronically authenticated by: DENNY RINCON Date: 09/26/2023 06:37
--- NOTE | 2023-09-25 12:44 | ECG_ITS ---
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
[2023-09-25 13:35] LABS: Basophils Absolute Auto 0.1 10^3/uL (0.0-0.1); Basophils Percent Auto 0.8 % (0.2-2.0); Eosinophils Absolute Auto 0.2 10^3/uL (0.0-0.7); Eosinophils Percent Auto 3.5 % (0.9-7.0); Hematocrit 41.8 % (36.0-48.0); Hemoglobin 13.8 g/dL (12.0-16.0); Immature Granulocytes Abs Auto 0.11 10^3/uL (0.00-0.03); Immature Granulocytes Pct Auto 1.7 % (0.0-0.5); Lymphocytes Absolute Auto 1.8 10^3/uL (1.2-3.8); Lymphocytes Percent Auto 28.8 % (20.5-60.0); Mean Corpuscular Hemoglobin 33.3 pg (26.7-34.0); Mean Platelet Volume 9.5 fL (9.5-13.5); Monocytes Absolute Auto 0.5 10^3/uL (0.3-0.8); Monocytes Percent Auto 7.8 % (1.7-12.0); Neutrophils Absolute Auto 3.6 10^3/uL (1.4-6.5); Neutrophils Percent Auto 57.4 % (43.0-75.0); Platelet Count 230 10^3/uL (150-450); Red Blood Count 4.14 10^6/uL (4.20-5.40); Red Cell Distribution Width 12.7 % (11.0-15.0); White Blood Count 6.3 10^3/uL (4.0-11.0)
[2023-09-25 14:09] LABS: Alanine Aminotransferase 22 U/L (14-59); Albumin Globulin Ratio 1.1; Albumin Level 3.9 g/dL (3.4-5.0); Alkaline Phosphatase 67 U/L (46-116); Anion Gap 10.3; Aspartate Amino Transferase 27 U/L (15-37); BUN Creatinine Ratio 17.1; Bilirubin Direct 0.1 mg/dL (0.0-0.2); Bilirubin Total 0.5 mg/dL (0.2-1.0); Calcium 9.3 mg/dL (8.5-10.1); Carbon Dioxide 29.5 mmol/L (21.0-32.0); Chloride 102 mmol/L (98-107); Estimated GFR (African America >60 (>=60); Estimated GFR (Non-African Ame >60 (>=60); Globulin 3.5 g/dL; Glucose 94 mg/dL (74-106); Potassium 4.8 mmol/L (3.5-5.1); Sodium 137 mmol/L (136-145); Total Protein 7.4 g/dL (6.4-8.2)
[2023-09-25 14:14] LABS: INR 0.94; Partial Thromboplastin Time 26.5 sec (22.3-36.2)
== END 2023-09-25 12:45 | disposition home or self-care (01) ==
LOC: PST 12:45
PROVIDERS: PCP Nurse Practitioner Family; Visit Provider Orthopaedic Surgery Orthopaedic Surgery of the Spine
DX: Z01.810 Encounter for preprocedural cardiovascular examination (principal); Z01.812 Encounter for preprocedural laboratory examination; M51.37 Other intervertebral disc degeneration, lumbosacral region
CPT/HCPCS: 36415; 71046; 80048; 80076; 85025; 85610; 85730; 87081; 93005

== ENCOUNTER 2023-10-07 16:29 | Outpatient (OUT) | payer MEDICARE, OTHER, MEDICAID, SELFPAY | END 2023-10-07 16:30 | disposition home or self-care (01) | LOC: LAB 16:30 | PROVIDERS: PCP Nurse Practitioner Family; Visit Provider Orthopaedic Surgery Orthopaedic Surgery of the Spine | DX: Z01.812 Encounter for preprocedural laboratory examination (principal); M51.37 Other intervertebral disc degeneration, lumbosacral region | CPT/HCPCS: 36415; 86850; 86900; 86901 ==

== ENCOUNTER 2023-10-09 12:32 | Observation (INO) | payer MEDICARE, OTHER, MEDICAID, SELFPAY ==
[2023-09-25 13:21] VITALS: BP 132/79; PULSE 85; TEMP 36.4; O2SAT 97; BMI 22.4
[2023-10-09] VITALS (16 sets, daily range): BP systolic 99–136; BP diastolic 54–82; PULSE 69–96; TEMP 36.1–36.8; O2SAT 90–100; BMI 22.8
--- NOTE | 2023-10-09 | FL_ITS ---
[address] [address] Patient Name: CARLA ABDI MRN: [id number] date: 1960 Sex: F Assigned Patient Location: SURGOUT Current Patient Location: [place] Accession/Order Number: [id number] Exam Date: 10/09/2023 11:10 Report Date: 10/20/2023 08:18 At the request of: SHAD REID Procedure: FL fluoroscopy <1hr NON-READ EXAM: FL fluoroscopy <1hr NON-READ HISTORY: TECHNIQUE: FINDINGS: Please see Operative Report. Electronically authenticated by: RADIOLOGIST NO Date: 10/20/2023 08:18
--- OUTSIDE RECORDS SUMMARY | 2023-10-09 07:45 | XMS_ITS | CCD ---
Author Organization [facility] CliniSyor Care Team Providers Care Escort Patients Name Role Phone MD Nesha Bryant Attending [...] 30 days Apr, Active polyethylene glycol 3350 254886 mg / potassium chloride 2970 mg / sodium bicarbonate 6740 mg / sodium chloride 5860 mg / sodium sulfate 07639 mg powder for oral solution (2 sources) [...] Test Name Value Interpretation Reference Range Facility [facility] 05-09-2022 L Specimen: [id number] Received: 05/09/22 Status: EDUARD Zaragoza Num: [id number] Spec Type: Surgical Subm Dr: Nesha Bryant MD Tissues: A Gastric Biopsy (GASTRIC) B Esophagus Biopsy (DISTAL ESOPHAGUS) C Esophagus Biopsy (PROXIMAL ESOPHAGUS) D Colon Biopsy (CECAL POLYP) E Colon Biopsy (SIGMOID POLYP) F Colon Biopsy (RECTAL POLYPS X3) Procedures: /, Gross/Micro L4/6 Age/ Patient Sex Location Account Attending Physician Nancy Joyce 61/F [id number] Nesha Bryant MD SPEC NUM: [id number] RECD: 05/09/22 STATUS: EDUARD ZARAGOZA NUM: [id number] KATY: 05/09/22- SUBM DR: Nesha Bryant MD ENTERED: 05/09/22-[address] [facility] [address]: SPEC TYPE: Surgical DEPT: S [...] mucosal fold. - Negative for adenoma/dysplasia. Specimen: [id number] Received: 05/09/22 Status: EDUARD Nickbatsheva Num: [id number] Spec Type: Surgical Subm Dr: Nesha Bryant MD Tissues: A Gastric Biopsy (GASTRIC) B Esophagus Biopsy (DISTAL ESOPHAGUS) C Esophagus Biopsy (PROXIMAL ESOPHAGUS) D Colon Biopsy (CECAL POLYP) E Colon Biopsy (SIGMOID POLYP) F Colon Biopsy (RECTAL POLYPS X3) Procedures: HE/12, Gross/Micro L4/6 Patient: Nancy Joyce [id number] (Continued) Specimen: [id number] Received: 05/09/22 (Continued) Pathological Diagnosis (Continued) Signed (signature on file) Carin Oliveros MD 05/12/22 1130 Specimen: [id number] Received: 05/09/22 Status: EDUARD Zaragoza Num: [id number] Spec Type: Surgical Subm Dr: Nesha Bryant MD Tissues: A Gastric Biopsy (GASTRIC) B Esophagus Biopsy (DISTAL ESOPHAGUS) C Esophagus Biopsy (PROXIMAL ESOPHAGUS) D Colon Biopsy (CECAL POLYP) E Colon Biopsy (SIGMOID POLYP) F Colon Biopsy (RECTAL POLYPS X3) Procedures: ROSI/Barbara, Gross/Micro L4/6 Patient: Nancy Joyce [id number] (Continued) Specimen: [id number] Received: 05/09/22 (Continued) Pathological Diagnosis (Continued) E. [...] cassette labeled 1. (more content not included)... [facility] XR MODIFIED BARIUM SWALLOWon 03-25-2022 XR [...] DENNY RINCON Date: 2022-03-25 13:53 Normal [facility] INSULINon 03-13-2022 Insulin 3.9 uIU/mL Normal 2.6-24.9 [facility] Comment on above: Performed By: #### O BSCRN #### [facility] [address] [address] [address] Ambrosio Ramirez XR CSPINE MIN 4 [...] DENNY RINCON Date: 2022-03-13 08:09 Normal [facility] CBC AUTO DIFFon 03-12-2022 BASO # 0.0 103/ul Normal 0.0-0.1 [facility] Comment on above: Performed By: #### C BC #### [facility] [address] [address] [address] Ambrosio Ramirez Basophils/100 WBC (Bld) 0.7 % Normal 0.2-2.0 [facility] Comment on above: Performed By: #### C BC #### [facility] [address] [address] [address] Ambrosio Ramirez EO # 0.1 103/ul Normal 0.0-0.7 [facility] Comment on above: Performed By: #### C BC #### [facility] [address] [place] [address] Dr. Ambrosio Ramirez Eosinophils/100 WBC (Bld) 0.9 % Normal 0.9-7.0 [facility] Comment on above: Performed By: #### C BC #### [facility] [address] [place] [address] Dr. Ambrosio Ramirez Erythrocyte distribution width (RBC) [Ratio] 12.3 % Normal 11.0-15.0 [facility] Comment on above: Performed By: #### C BC #### [facility] [address] [place] [address] Dr. Ambrosio Ramirez Hematocrit (Bld) [Volume fraction] 46.0 % Normal 36.0-48.0 [facility] Comment on above: Performed By: #### C BC #### [facility] [address] [place] [address] Dr. Ambrosio Ramirez Hemoglobin (Bld) [Mass/Vol] 15.2 g/dL Normal 12.0-16.0 [facility] Comment on above: Performed By: #### C BC #### [facility] [address] [place] [address] Dr. Ambrosio Ramirez IG # 0.03 10e3/ul Normal 0.00-0.03 [facility] Comment on above: Performed By: #### C BC #### [facility] [address] [place] [address] Dr. Ambrosio Ramirez IG % 0.5 % Normal 0.0-0.5 [facility] Comment on above: Performed By: #### C BC #### [facility] [address] [place] [address] Dr. Ambrosio Ramirez LYMPH # 2.0 103/ul Normal 1.2-3.8 [facility] Comment on above: Performed By: #### C BC #### [facility] [address] [place] [address] Dr. Ambrosio Ramirez Lymphocytes/100 WBC (Bld) 35.0 % Normal 20.5-60.0 [facility] Comment on above: Performed By: #### C BC #### [facility] [address] [place] [address] Dr. Ambrosio Ramirez MANUAL DIFF REQ NO Normal [facility] Comment on above: Performed By: #### C BC #### [facility] [address] [place] [address] Dr. Ambrosio Ramirez MCH (RBC) [Entitic mass] 33.8 pg Normal 26.7-34.0 [facility] Comment on above: Performed By: #### C BC #### [facility] [address] [place] [address] Dr. Ambrosio Ramirez MCHC (RBC) [Mass/Vol] 33.0 g/dL Normal 29.9-35.2 [facility] Comment on above: Performed By: #### C BC #### [facility] [address] [place] [address] Dr. Ambrosio Ramirez MCV (RBC) [Entitic vol] 102.2 fL Critically high 81.0-99.0 [facility] Comment on above: Performed By: #### C BC #### [facility] [address] [place] [address] Dr. Ambrosio Ramirez MONO # 0.4 103/ul Normal 0.3-0.8 [facility] Comment on above: Performed By: #### C BC #### [facility] [address] [place] [address] Dr. Ambrosio Ramirez Monocytes/100 WBC (Bld) 7.2 % Normal 1.7-12.0 [facility] Comment on above: Performed By: #### C BC #### [facility] [address] [place] [address] Dr. Ambrosio Ramirez NEUT # 3.2 103/ul Normal 1.4-6.5 [facility] Comment on above: Performed By: #### C BC #### [facility] [address] [place] [address] Dr. Ambrosio Ramirez Neutrophils/100 WBC (Bld) 55.7 % Normal 43.0-75.0 [facility] Comment on above: Performed By: #### C BC #### [facility] [address] [place] [address] Dr. Ambrosio Ramirez Platelet mean volume (Bld) [Entitic vol] 9.1 fL Critically low 9.5-13.5 [facility] Comment on above: Performed By: #### C BC #### [facility] [address] [place] [address] Dr. Ambrosio Ramirez PLT 234 103/ul Normal 150-450 [facility] Comment on above: Performed By: #### C BC #### [facility] [address] [place] [address] Dr. Ambrosio Ramirez RBC 4.50 106/ul Normal 4.20-5.40 [facility] Comment on above: Performed By: #### C BC #### [facility] [address] [place] [address] Dr. Ambrosio Ramirez WBC 5.7 103/ul Normal 4.0-11.0 [facility] Comment on above: Performed By: #### C BC #### [facility] [address] [place] [address] Dr. Ambrosio Ramirez FREE THYROXINE INDEX T7on FTI 2.41 Normal 1.30-4.50 [facility] Comment on above: Performed By: #### A 1C #### [facility] [address] [place] [address] Dr. Ambrosio Ramirez T3U 33.0 % Normal 30.0-39.0 [facility] Comment on above: Performed By: #### A 1C #### [facility] [address] [place] [address] Dr. Ambrosio Ramirez T4 [Mass/Vol] 7.30 ug/dL Normal 4.80-13.90 [facility] Comment on above: Performed By: #### A 1C #### [facility] [address] [place] [address] Dr. Ambrosio Ramirez GLYCOHEMOGLOBIN A1Con 2022 ADA RECOMMENDATION SEE BELOW Normal [facility] Comment on above: Result Comment: ADA RECOMMENDED LIMIT 4.0 - 6.0 ADA THERAPEUTIC TARGET < 7.0 ACTION SUGGESTED > 7.0 Performed By: #### A 1C #### [facility] [address] [address] [address] Ambrosio Ramirez Glucose [Mass/Vol] 100 mg/dL Normal [facility] Comment on above: Performed By: #### A 1C #### [facility] [address] [place] [address] Dr. Ambrosio Ramirez HbA1c (Bld) [Mass fraction] 5.1 % Normal 4.5-6.2 [facility] Comment on above: Performed By: #### A 1C #### [facility] [address] [place] [address] Dr. Ambrosio Ramirez IRONon 03-12-2022 Iron [Mass/Vol] 148.0 ug/dL Normal 50.0-170.0 [facility] Comment on above: Performed By: #### O BSCRN #### [facility] [address] [place] [address] Dr. Ambrosio Ramirez LIPID PROFILEon 03-12-2022 CHOL-HDL RATIO NORM SEE BELOW Normal [facility] Comment on above: Result Comment: 3.3 - 4.4 LOW RISK 4.4 - 7.1 AVERAGE RISK 7.1 - 11.0 MODERATE RISK >11.0 HIGH RISK Performed By: #### A 1C #### [facility] [address] [place] [address] Dr. Ambrosio Ramirez Cholesterol [Mass/Vol] 234 mg/dL Critically high <=200 [facility] Comment on above: Performed By: #### A 1C #### [facility] [address] [place] [address] Dr. Ambrosio Ramirez Cholesterol in HDL [Mass/Vol] 71 mg/dL Critically high 40-60 [facility] Comment on above: Performed By: #### A 1C #### [facility] [address] [place] [address] Dr. Ambrosio Ramirez Cholesterol in LDL [Mass/Vol] 132.4 mg/dL Normal [facility] Comment on above: Performed By: #### A 1C #### [facility] [address] [place] [address] Dr. Ambrosio Ramirez Cholesterol.total/Cho lesterol in HDL [Mass ratio] 3.3 {ratio} Normal [facility] Comment on above: Performed By: #### A 1C #### [facility] [address] [address] [address] Ambrosio Ramirez HDL NORMAL > or = 60 mg/dl - LOW CARDIOVASCULAR RISK <40 mg/dl - HIGH CARDIOVASCULAR RISK Normal [facility] Comment on above: Performed By: #### A 1C #### [facility] [address] [address] [address] Ambrosio Ramirez LDL CALC NORMAL SEE BELOW Normal [facility] Comment on above: Result Comment: <100 mg/dl OPTIMAL 100 - 129 mg/dl NEAR OR ABOVE OPTIMAL 130 - 159 mg/dl BORDERLINE HIGH 160 - 189 mg/dl HIGH >190 mg/dl VERY HIGH Performed By: #### A 1C #### [facility] [address] [address] [address] Ambrosio Ramirez Triglyceride [Mass/Vol] 153 mg/dL Critically high <=150 [facility] Comment on above: Performed By: #### A 1C #### [facility] [address] [address] [address] Ambrosio Ramirez VLDL CALC 30.6 mg/dL Normal [facility] Comment on above: Performed By: #### A 1C #### [facility] [address] [address] [address] Ambrosio Ramirez PROF 14(COMP METB)on 023 Albumin [Mass/Vol] 4.2 g/dL Normal 3.4-5.0 [facility] Comment on above: Performed By: #### A 1C #### [facility] [address] [address] [address] Ambrosio Ramirez Albumin/Globulin [Mass ratio] 1.3 {ratio} Normal [facility] Comment on above: Performed By: #### A 1C #### [facility] [address] [address] [address] Ambrosio Ramirez ALP [Catalytic activity/Vol] 62 U/L Normal 46-116 [facility] Comment on above: Performed By: #### A 1C #### [facility] [address] [address] [address] Ambrosio Ramirez ALT [Catalytic activity/Vol] 27 U/L Normal 14-59 [facility] Comment on above: Performed By: #### A 1C #### [facility] [address] [address] [address] Ambrosio Ramirez Anion gap [Moles/Vol] 12.8 mmol/L Normal [facility] Comment on above: Performed By: #### A 1C #### [facility] [address] [address] [address] Ambrosio Ramirez AST [Catalytic activity/Vol] 39 U/L Critically high 15-37 [facility] Comment on above: Performed By: #### A 1C #### [facility] [address] [place] [address] Dr. Ambrosio Ramirez Bilirubin [Mass/Vol] 0.4 mg/dL Normal 0.2-1.0 [facility] Comment on above: Performed By: #### A 1C #### [facility] [address] [place] [address] Dr. Ambrosio Ramirez Calcium [Mass/Vol] 9.1 mg/dL Normal 8.5-10.1 [facility] Comment on above: Performed By: #### A 1C #### [facility] [address] [place] [address] Dr. Ambrosio Ramirez Chloride [Moles/Vol] 103 mmol/L Normal 98-107 [facility] Comment on above: Performed By: #### A 1C #### [facility] [address] [address] [address] Ambrosio Ramirez CO2 [Moles/Vol] 30.5 mmol/L Normal 21.0-32.0 [facility] Comment on above: Performed By: #### A 1C #### [facility] [address] [place] [address] Dr. Ambrosio Ramirez Creatinine [Mass/Vol] 0.54 mg/dL Critically low 0.55-1.02 [facility] Comment on above: Performed By: #### A 1C #### [facility] [address] [address] [address] Ambrosio Ramirez EGFR-AF MALAYSIAN >60 Normal >=60 [facility] Comment on above: Performed By: #### A 1C #### [facility] [address] [address] [address] Ambrosio Ramirez EGFR-NON AF MALAYSIAN >60 Normal >=60 [facility] Comment on above: Performed By: #### A 1C #### [facility] [address] [address] [address] Ambrosio Ramirez Globulin (S) [Mass/Vol] 3.3 g/dL Normal [facility] Comment on above: Performed By: #### A 1C #### [facility] [address] [place] [address] Dr. Ambrosio Ramirez Glucose [Mass/Vol] 88 mg/dL Normal 74-106 [facility] Comment on above: Performed By: #### A 1C #### [facility] [address] [place] [address] Dr. Ambrosio Ramirez Potassium [Moles/Vol] 4.3 mmol/L Normal 3.5-5.1 [facility] Comment on above: Performed By: #### A 1C #### [facility] [address] [place] [address] Dr. Ambrosio Ramirez Protein [Mass/Vol] 7.5 g/dL Normal 6.4-8.2 [facility] Comment on above: Performed By: #### A 1C #### [facility] [address] [place] [address] Dr. Ambrosio Ramirez Sodium [Moles/Vol] 142 mmol/L Normal 136-145 [facility] Comment on above: Performed By: #### A 1C #### [facility] [address] [place] [address] Dr. Ambrosio Ramirez Urea nitrogen [Mass/Vol] 9.0 mg/dL Normal 7.0-18.0 [facility] Comment on above: Performed By: #### A 1C #### [facility] [address] [place] [address] Dr. Ambrosio Ramirez Urea nitrogen/Creatinine [Mass ratio] 16.7 mg/mg Normal [facility] Comment on above: Performed By: #### A 1C #### [facility] [address] [place], [place] [address] Dr. Ambrosio Ramirez TSHon 03-12-2022 TSH 1.934 uIU/mL Normal 0.358-3.740 [facility] Comment on above: Performed By: #### A 1C #### [facility] [address] [place], [place] [address] Dr. Ambrosio Ramirez XR TSPINE 3 VIEWSon [...] GEORGE CATALAN Date: 2022-03-12 17:07 Normal [facility] Covid-19 PCR (CVDTB)on SARS-CoV-2 (COVID-19) RNA JAYY+probe Ql (Unsp spec) Not detected Normal NOT DETECTED [facility] Comment on above: Result Comment: When diagnostic [...] for this test is supported by the [employer] Worker of Health and Human Service's declaration that [...] used). Performed By: #### C VDTBH #### [facility] [address] [address] [address] Ambrosio Ramirez INFLUENZA A AND B AGon 01-27 INFLUENZA A AG Negative Normal NEGATIVE SEE COMMENT [facility] Comment on above: Performed By: #### I NFLUAB #### [facility] [address] [place] [address] Dr. Ambrosio Ramirez INFLUENZA B AG Negative Normal NEGATIVE SEE COMMENT [facility] Comment on above: Performed By: #### I NFLUAB #### [facility] [address] [address] [address] Ambrosio Ramirez INTERNAL CONTROLS Within Normal Limits Normal Wi thin Normal Limits [facility] Comment on above: Performed By: #### I NFLUAB #### [facility] [address] [place] [address] Dr. Ambrosio Ramirez XR CHEST 2 Von [...] GEORGE ROWE Date: 2022-01-27 14:42 Normal [facility] RPR QUANTon 08-26-2021 Rapid Plasma Reagin, Quant Non-Reactive Normal NonRea<1:1 [facility] Comment on above: Result Comment: Plea se Note: This test does not meet current guidelines for screening and diagnosis of syphilis. This test is intended for following treatment response in patients being treated for syphilis infection. To screen for syphilis infection, a reflex cascade that includes both RPR and a treponema-specific assay should be utilized, such as Treponema pallidum (Syphilis) Screening [place] (083029) or Rapid Plasma Reagin (RPR) Test With Reflex to Quantitative RPR and Confirmatory Treponema pallidum Antibodies (529914). Performed By: #### R PRQ #### [facility] [address] [place] [address] Dr. Ambrosio Ramirez HEP B SURFACE ANTIGEN SCREEN on 08-24-2021 HBsAg Screen Negative Normal Negative [facility] Comment on above: Performed By: #### H BSANS #### [facility] [address] [place] [address] Dr. Ambrosio Ramirez HEPATITIS C ANTIBODYon 08-24 Hep C Virus Ab <0.1 Normal 0.0-0.9 [facility] Comment on above: Result Comment: Nega [...] Hepatitis C Virus (HCV) RNA, Diagnosis, JAYY (779699) and Hepatitis C Virus (HCV) Antibody with reflex to Quantitative Real-time PCR (915809). Performed By: #### H CV #### [facility] [address] [place] [address] Dr. Ambrosio Ramirez INSULINon 08-23-2021 Insulin 5.0 uIU/mL Normal 2.6-24.9 [facility] Comment on above: Performed By: #### A 1C #### [facility] [address] [place] [address] Dr. Ambrosio Ramirez OCC BLD IMMUNO SCREENon OCCULT BLOOD Negative Normal NEGATIVE [facility] Comment on above: Performed By: #### O BSCRN #### [facility] [address] [place] [address] Dr. Ambrosio Ramirez CBC AUTO DIFFon 08-22-2021 BASO # 0.1 103/ul Normal 0.0-0.1 [facility] Comment on above: Performed By: #### O BSCRN #### [facility] [address] [place] [address] Dr. Ambrosio Ramirez Basophils/100 WBC (Bld) 1.0 % Normal 0.2-2.0 [facility] Comment on above: Performed By: #### O BSCRN #### [facility] [address] [place] [address] Dr. Ambrosio Ramirez EO # 0.1 103/ul Normal 0.0-0.7 [facility] Comment on above: Performed By: #### O BSCRN #### [facility] [address] [place] [address] Dr. Ambrosio Ramirez Eosinophils/100 WBC (Bld) 1.8 % Normal 0.9-7.0 [facility] Comment on above: Performed By: #### O BSCRN #### [facility] [address] [place] [address] Dr. Ambrosio Ramirez Erythrocyte distribution width (RBC) [Ratio] 11.9 % Normal 11.0-15.0 [facility] Comment on above: Performed By: #### O BSCRN #### [facility] [address] [place] [address] Dr. Ambrosio Ramirez Hematocrit (Bld) [Volume fraction] 48.6 % Critically high 36.0-48.0 [facility] Comment on above: Performed By: #### O BSCRN #### [facility] [address] [place] [address] Dr. Ambrosio Ramirez Hemoglobin (Bld) [Mass/Vol] 16.3 g/dL Critically high 12.0-16.0 [facility] Comment on above: Performed By: #### O BSCRN #### [facility] [address] [place] [address] Dr. Ambrosio Ramirez IG # 0.03 10e3/ul Normal 0.00-0.03 [facility] Comment on above: Performed By: #### O BSCRN #### [facility] [address] [place] [address] Dr. Ambrosio Ramirez IG % 0.6 % Critically high 0.0-0.[address] [facility] Comment on above: Performed By: #### O BSCRN #### [facility] [address] [place] [address] Dr. Ambrosio Ramirez LYMPH # 2.4 103/ul Normal 1.2-3.8 [facility] Comment on above: Performed By: #### O BSCRN #### [facility] [address] [place] [address] Dr. Ambrosio Ramirez Lymphocytes/100 WBC (Bld) 46.9 % Normal 20.5-60.0 [facility] Comment on above: Performed By: #### O BSCRN #### [facility] [address] [place] [address] Dr. Ambrosio Ramirez MANUAL DIFF REQ NO Normal [facility] Comment on above: Performed By: #### O BSCRN #### [facility] [address] [place] [address] Dr. Ambrosio Ramirez MCH (RBC) [Entitic mass] 34.9 pg Critically high 26.7-34.0 [facility] Comment on above: Performed By: #### O BSCRN #### [facility] [address] [place] [address] Dr. Ambrosio Ramirez MCHC (RBC) [Mass/Vol] 33.5 g/dL Normal 29.9-35.2 [facility] Comment on above: Performed By: #### O BSCRN #### [facility] [address] [place] [address] Dr. Ambrosio Ramirez MCV (RBC) [Entitic vol] 104.1 fL Critically high 81.0-99.0 [facility] Comment on above: Performed By: #### O BSCRN #### [facility] [address] [place] [address] Dr. Ambrosio Ramirez MONO # 0.4 103/ul Normal 0.3-0.8 [facility] Comment on above: Performed By: #### O BSCRN #### [facility] [address] [place] [address] Dr. Ambrosio Ramirez Monocytes/100 WBC (Bld) 8.2 % Normal 1.7-12.0 [facility] Comment on above: Performed By: #### O BSCRN #### [facility] [address] [place] [address] Dr. Ambrosio Ramirez NEUT # 2.1 103/ul Normal 1.4-6.5 [facility] Comment on above: Performed By: #### O BSCRN #### [facility] [address] [place] [address] Dr. Ambrosio Ramirez Neutrophils/100 WBC (Bld) 41.5 % Critically low 43.0-75.0 [facility] Comment on above: Performed By: #### O BSCRN #### [facility] [address] [place] [address] Dr. Ambrosio Ramirez Platelet mean volume (Bld) [Entitic vol] 9.3 fL Critically low 9.5-13.5 [facility] Comment on above: Performed By: #### O BSCRN #### [facility] [address] [place] [address] Dr. Ambrosio Ramirez PLT 210 103/ul Normal 150-450 [facility] Comment on above: Performed By: #### O BSCRN #### [facility] [address] [place] [address] Dr. Ambrosio Ramirez RBC 4.67 106/ul Normal 4.20-5.40 [facility] Comment on above: Performed By: #### O BSCRN #### [facility] [address] [place] [address] Dr. Ambrosio Ramirez WBC 5.0 103/ul Normal 4.0-11.0 [facility] Comment on above: Performed By: #### O BSCRN #### [facility] [address] [place] [address] Dr. Ambrosio Ramirez FREE THYROXINE INDEX T7on -2021 FTI 2.72 Normal 1.30-4.50 [facility] Comment on above: Performed By: #### O BSCRN #### [facility] [address] [place] [address] Dr. Ambrosio Ramirez T3U 32.0 % Normal 30.0-39.0 [facility] Comment on above: Performed By: #### O BSCRN #### [facility] [address] [place] [address] Dr. Ambrosio Ramirez T4 [Mass/Vol] 8.50 ug/dL Normal 4.80-13.90 [facility] Comment on above: Performed By: #### O BSCRN #### [facility] [address] [place] [address] Dr. Ambrosio Ramirez GLYCOHEMOGLOBIN A1Con 2021 ADA RECOMMENDATION SEE BELOW Normal [facility] Comment on above: Result Comment: ADA RECOMMENDED LIMIT 4.0 - 6.0 ADA THERAPEUTIC TARGET < 7.0 ACTION SUGGESTED > 7.0 Performed By: #### A 1C #### [facility] [address] [place] [address] Dr. Ambrosio Ramirez Glucose [Mass/Vol] 108 mg/dL Normal [facility] Comment on above: Performed By: #### A 1C #### [facility] [address] [place] [address] Dr. Ambrosio Ramirez HbA1c (Bld) [Mass fraction] 5.4 % Normal 4.5-6.2 [facility] Comment on above: Performed By: #### A 1C #### [facility] [address] [place] [address] Dr. Ambrosio Ramirez HIV 1/2 RAPID (EXPOSURE ONLY )on 08-22-2021 HIV AB Negative Normal [facility] Comment on above: Performed By: #### A 1C #### [facility] [address] [place] [address] Dr. Ambrosio Ramirez HIV AG Negative Normal [facility] Comment on above: Performed By: #### A 1C #### [facility] [address] [address] [address] Ambrosio Ramirez INTERNAL CONTROLS Within Normal Limits Normal Wi thin Normal Limits [facility] Comment on above: Performed By: #### A 1C #### [facility] [address] [place] [address] Dr. Ambrsoio Ramirez RAPID HIV INFO SEE BELOW Normal [facility] [place] Comment on above: Result Comment: This test is used for the initial screening of the exposure source. Confirmation of all results will be obtained through reference lab testing. Performed By: #### A 1C #### [facility] [address] [place] [address] Dr. Ambrosio Ramirez IRONon 08-22-2021 Iron [Mass/Vol] 137.0 ug/dL Normal 50.0-170.0 [facility] Comment on above: Performed By: #### I HAMLET #### [facility] [address] [address] [address] Ambrosio Ramirez LIPID PROFILEon 08-22-2021 CHOL-HDL RATIO NORM SEE BELOW Normal [facility] Comment on above: Result Comment: 3.3 - 4.4 LOW RISK 4.4 - 7.1 AVERAGE RISK 7.1 - 11.0 MODERATE RISK >11.0 HIGH RISK Performed By: #### O BSCRN #### [facility] [address] [address] [address] Ambrosio Ramirez Cholesterol [Mass/Vol] 251 mg/dL Critically high <=200 [facility] Comment on above: Performed By: #### O BSCRN #### [facility] [address] [address] [address] Ambrosio Ramirez Cholesterol in HDL [Mass/Vol] 67 mg/dL Critically high 40-60 [facility] Comment on above: Performed By: #### O BSCRN #### [facility] [address] [address] [address] Ambrosio Ramirez Cholesterol in LDL [Mass/Vol] 154.8 mg/dL Normal [facility] Comment on above: Performed By: #### O BSCRN #### [facility] [address] [address] [address] Ambrosio Ramirez Cholesterol.total/Cho lesterol in HDL [Mass ratio] 3.7 {ratio} Normal [facility] Comment on above: Performed By: #### O BSCRN #### [facility] [address] [address] [address] Ambrosio Ramirez HDL NORMAL > or = 60 mg/dl - LOW CARDIOVASCULAR RISK <40 mg/dl - HIGH CARDIOVASCULAR RISK Normal [facility] Comment on above: Performed By: #### O BSCRN #### [facility] [address] [address] [address] Ambrosio Ramirez LDL CALC NORMAL SEE BELOW Normal [facility] Comment on above: Result Comment: <100 mg/dl OPTIMAL 100 - 129 mg/dl NEAR OR ABOVE OPTIMAL 130 - 159 mg/dl BORDERLINE HIGH 160 - 189 mg/dl HIGH >190 mg/dl VERY HIGH Performed By: #### O BSCRN #### [facility] [address] [address] [address] Ambrosio Ramirez Triglyceride [Mass/Vol] 146 mg/dL Normal <=150 [facility] Comment on above: Performed By: #### O BSCRN #### [facility] [address] [address] [address] Ambrosio Ramirez VLDL CALC 29.2 mg/dL Normal [facility] Comment on above: Performed By: #### O BSCRN #### [facility] [address] [address] [address] Ambrosio Ramirez PROF 14(COMP METB)on 022 Albumin [Mass/Vol] 4.3 g/dL Normal 3.4-5.0 [facility] Comment on above: Performed By: #### O BSCRN #### [facility] [address] [place] [address] Dr. Ambrosio Ramirez Albumin/Globulin [Mass ratio] 1.2 {ratio} Normal [facility] Comment on above: Performed By: #### O BSCRN #### [facility] [address] [place] [address] Dr. Ambrosio Ramirez ALP [Catalytic activity/Vol] 57 U/L Normal 46-116 [facility] Comment on above: Performed By: #### O BSCRN #### [facility] [address] [place] [address] Dr. Ambrosio Ramirez ALT [Catalytic activity/Vol] 56 U/L Normal 14-59 [facility] Comment on above: Performed By: #### O BSCRN #### [facility] [address] [place] [address] Dr. Ambrosio Ramirez Anion gap [Moles/Vol] 11.5 mmol/L Normal [facility] Comment on above: Performed By: #### O BSCRN #### [facility] [address] [address] [address] Ambrosio Ramirez AST [Catalytic activity/Vol] 75 U/L Critically high 15-37 [facility] Comment on above: Performed By: #### O BSCRN #### [facility] [address] [place] [address] Dr. Ambrosio Ramirez Bilirubin [Mass/Vol] 0.4 mg/dL Normal 0.2-1.0 [facility] Comment on above: Performed By: #### O BSCRN #### [facility] [address] [place] [address] Dr. Ambrosio Ramirez Calcium [Mass/Vol] 8.7 mg/dL Normal 8.5-10.1 [facility] Comment on above: Performed By: #### O BSCRN #### [facility] [address] [place] [address] Dr. Ambrosio Ramirez Chloride [Moles/Vol] 105 mmol/L Normal 98-107 [facility] Comment on above: Performed By: #### O BSCRN #### [facility] [address] [place] [address] Dr. Ambrosio Ramirez CO2 [Moles/Vol] 30.3 mmol/L Normal 21.0-32.0 [facility] Comment on above: Performed By: #### O BSCRN #### [facility] [address] [place] [address] Dr. Ambrosio Ramirez Creatinine [Mass/Vol] 0.67 mg/dL Normal 0.55-1.02 [facility] Comment on above: Performed By: #### O BSCRN #### [facility] [address] [place] [address] Dr. Ambrosio Ramirez EGFR-AF MALAYSIAN >60 Normal >=60 [facility] Comment on above: Performed By: #### O BSCRN #### [facility] [address] [place] [address] Dr. Ambrosio Ramirez EGFR-NON AF MALAYSIAN >60 Normal >=60 [facility] Comment on above: Performed By: #### O BSCRN #### [facility] [address] [place] [address] Dr. Ambrosio Ramirez Globulin (S) [Mass/Vol] 3.7 g/dL Normal [facility] Comment on above: Performed By: #### O BSCRN #### [facility] [address] [address] [address] Ambrosio Ramirez Glucose [Mass/Vol] 93 mg/dL Normal 74-106 [facility] Comment on above: Performed By: #### O BSCRN #### [facility] [address] [place] [address] Dr. Ambrosio Ramirez Potassium [Moles/Vol] 4.8 mmol/L Normal 3.5-5.1 [facility] Comment on above: Performed By: #### O BSCRN #### [facility] [address] [place] [address] Dr. Ambrosio Ramirez Protein [Mass/Vol] 8.0 g/dL Normal 6.4-8.2 [facility] Comment on above: Performed By: #### O BSCRN #### [facility] [address] [place] [address] Dr. Ambrosio Ramirez Sodium [Moles/Vol] 142 mmol/L Normal 136-145 [facility] Comment on above: Performed By: #### O BSCRN #### [facility] [address] [place] [address] Dr. Ambrosio Ramirez Urea nitrogen [Mass/Vol] 8.0 mg/dL Normal 7.0-18.0 [facility] Comment on above: Performed By: #### O BSCRN #### [facility] [address] [place] [address] Dr. Ambrosio Ramirez Urea nitrogen/Creatinine [Mass ratio] 11.9 mg/mg Normal [facility] Comment on above: Performed By: #### O BSCRN #### [facility] [address] [place] [address] Dr. Ambrosio Ramirez TSHon 08-22-2021 TSH 2.117 uIU/mL Normal 0.358-3.740 [facility] Comment on above: Performed By: #### O BSCRN #### [facility] [address] [address] [address] Ambrosio Ramirez XR CSPINE MIN 4 [...] Cervical fusion hardware with no mechanical failure [id number] degenerative changes of the cervical thoracic spine Electronically authenticated by: GEORGE ROWE Date: 2021-08-22 21:07 Normal [facility] Vital Signs Date Time Vital Sign Value Performing Clinician Facility 05-09-2022 10:14-0400 Diastolic blood pressure 85 mm[Hg] IRON MELTER-C Ama Edwards Work Phone: [facility] 05-09-2022 10:14-0400 Heart rate 99 /min IR[facility] Ama Edwards Work Phone: [facility] 05-09-2022 10:14-0400 Respiratory rate 18 /min IR[facility] Ama Edwards Work Phone: [facility] 05-09-2022 10:14-0400 SaO2% (BldA) [Mass fraction] 99 % IRON [facility]C Ama Edwards Work Phone: [facility] 05-09-2022 10:14-0400 Systolic blood pressure 124 mm[Hg] IRON MELTER-C Ama Edwards Work Phone: [facility] 05-09-2022 08:04-0400 Body height 180.34 cm IRON MELTER-C Ama Edwards Work Phone: [facility] 05-09-2022 08:04-0400 Body weight 58.96 kg IRON MELTER-C Ama Edwards Work Phone: [facility] 05-01-2022 11:15-0500 Body height Imad Asaad Other [facility] 05-01-2022 11:15-0500 Body mass index (BMI) [Ratio] 18.13 kg/m2 Imad Asaad Other [facility] 05-01-2022 11:15-0500 Body weight 58.97 kg Imad Asaad Other [facility] 05-01-2022 11:15-0500 Diastolic blood pressure 102 mm[Hg] Imad Asaad Other [facility] 05-01-2022 11:15-0500 Respiratory rate 16 /min Imad Asaad Other [facility] 05-01-2022 11:15-0500 Systolic blood pressure 158 mm[Hg] Imad Asaad Other [facility] Other Encounters Encounter Date Encounter Type Care Provider Facility Start: 09-21-2023 End: 09-21-2023 ambulatory Manuel Reynaga MD Facility: [facility] Start: 08-31-2023 End: 08-31-2023 ambulatory Manuel Reynaga MD Facility: [facility] Start: 08-17-2023 End: 08-17-2023 ambulatory Manuel Reynaga MD Facility: [facility] Start: 07-06-2023 End: 07-06-2023 ambulatory Manuel Reynaga MD Facility: [facility] Start: 12-15-2022 End: 12-15-2022 ambulatory Manuel Reynaga MD Facility: [facility] Start: 11-17-2022 End: 11-17-2022 ambulatory Manuel Reynaga MD Facility:[facility] Start: 11-10-2022 End: 11-10-2022 ambulatory Maneul Reynaga MD Facility:[facility] Start: 05-09-2022 End: 05-09-2022 ambulatory Ama Edwards Facility:[facility] Start: 05-09-2022 End: 05-09-2022 Admission to same day surgery center IRON [facility]TER-C Ama Edwards Work Phone: [facility] Work Phone: Start: 05-09-2022 End: 05-09-2022 ambulatory IRON MELTER-C Ama Edwards Work Phone: [facility] Work Phone: Start: 05-02-2022 End: 05-02-2022 ambulatory Imad Asaad Other [facility] Start: 05-02-2022 Telephone encounter Imad Asaad [facility] Start: 05-01-2022 End: 05-01-2022 ambulatory Imad Asaad Other [facility] Start: 05-01-2022 Office consultation new/estab patient [...] Date Care Activity Detail Author Start: 05-09-2022 [facility] Patient Education Colon Polyps H emorrhoids (DC) Diverticulosis (DC) Gastritis (DC) [facility] Work Phone: Payers Date Payer Category Payer Self-pay 2022 Unknown 1960 Unknown [id number] 2.16.84 [id number] 1960 Unknown [id number] 2.16.84 [id number] 1960 Unknown [id number] 2.16.84 [id number] 1960 Unknown [id number] 2.16.84 [id number] 1962 Unknown [id number] 2.16.84 [id number] 1962 Unknown [id number] 2.16.84 [id number] 1962 Unknown [id number] 2.16.84 [id number] 1962 Unknown [id number] 2.16. [id number] 1962 Unknown [id number] 2.16. [id number] 1962 Unknown [id number] 2.16. [id number] 1962 Unknown [id number] 2.16. [id number] 1962 Unknown [id number] 2.16. 840.1.198107.3.579.2.196 1962 Unknown [id number] 2.16. [id number] 1962 Unknown [id number] 2.16. [id number] 1957 Medicare [id number] 1959 Unknown [id number] 1957 Unknown [id number] 1957 Unknown [id number] Unknown [id number] 2.16.8 [id number] Social History Date Type Detail Facility Start: 05-09-2022 Tobacco smoking status NHIS Smoker (finding) [facility] Start: 1960 Sex Assigned At Female F [facility] Sex Assigned At Sex Assigned At Bir th [facility] Other Goals Date Patient Goal Desired Activity /State Procedure note 05-09-2022 Note Date & Type Note Facility 05-09-2022 Procedure note [facility] Evaluation note 05-01-2022 Note Date & Type Note Facility 05-01-2022 Evaluation note Encounter Date Diagnosis Assessment Notes Apr, Dysphagia (ICD-10 - R13.10) Apr, Weight loss (ICD-10 - R63.4) Apr, Colon cancer screening (ICD-10 - Z12.11) [facility] Evaluation note Note Date & Type Note Facility Evaluation note No assessment information availa [facility] Work Phone: Evaluation note Note Date & Type Note Facility Evaluation note No Information [employer] Other History general Narrative - Reported Note Date & Type Note Facility History general Narrative - Reported Type Medical History Anxiety/Depression Surgical History Neck surgery Surgical History Tonsillectomy Hospitalization History See above [facility] Other Hospital Discharge instructions Note Date & [...] NOT operate machinery such as power tools, [employer] mowers, snow blowers, sewing machines, etc. for [...] -Follow up with PCP. - Office number [phone]. [facility] Work Phone: Chief Complaint and Reason for [...] and content) [facility] DIARRHEA, WEIGHT LOSS AND DYSPHAGIAClinical INFORMATION SOURCE (unrecogn ized section and content) DATE CREATED AUTHOR 05/20/2022 [facility] DATE CREATED AUTHOR AUTHOR'S ORGANIZ ATION 07/02/2022 [facility] DATE CREATED AUTHOR AUTHOR'S ORGANIZ ATION 10/06/2023 [facility] FOR RECORDS PERTAINING TO PATIENTS WHO ARE [...] BE BASED ON THE PRIMARY CLINICAL RECORDS. [employer] provides no warranty or guarantee of the accuracy or completeness of information in this document.
[2023-10-09 08:18] LABS: Amphetamine Screen Urine NEGATIVE (NEGATIVE); Barbiturates Screen Urine NEGATIVE (NEGATIVE); Benzodiazepines Screen Urine POSITIVE (NEGATIVE); Buprenorphine Screen Urine NEGATIVE (NEGATIVE); Cannabinoid Screen Urine NEGATIVE (NEGATIVE); Cocaine Screen Urine NEGATIVE (NEGATIVE); Methadone Screen Urine NEGATIVE (NEGATIVE); Methamphetamines Screen Urine NEGATIVE (NEGATIVE); Opiate Screen Urine NEGATIVE (NEGATIVE); Oxycodone Screen Urine NEGATIVE (NEGATIVE); Phencyclidine Screen Urine NEGATIVE (NEGATIVE); Tricyclic Antidepressant Urine POSITIVE (NEGATIVE)
[2023-10-09] MEDS: LACTATED RINGER'S SOLUTION 1,000 ML 50 ML IV ×2 (08:22→10:53)
[2023-10-09] MEDS: CEFAZOLIN SODIUM 2 GM/50 ML D5W PREMIX IV (09:46)
[2023-10-09] MEDS: VANCOMYCIN HCL 1,000 MG VIAL 1000 MG TOPICAL (12:00)
--- NOTE | 2023-10-09 12:17 | P.ON_ITS ---
Brief Operative Note Date of procedure: 10/09/23 Pre-op diagnosis general: L4-5 spondylolisthesis, grade 1 and DDD with stenosis and radiculopathy Post-op diagnosis: same as pre-op Procedure: L4-5 decompression and fusion Anesthesia: AGAPITO Surgeon: Segundo [employer] Requirements Planner: Godfrey Pack Estimated blood loss (mL): 150 Pathology: none sent Condition: stable Disposition: PACU
[2023-10-09] MEDS: HYDROMORPHONE HCL 0.5 MG/0.5 ML SYRINGE IV ×3 (12:48→13:04)
--- NOTE | 2023-10-09 12:59 | W.PM.OPNOTE ---
Surgery Operative Note Operative Note Procedure Date: 10/09/23 Time Out Performed: yes Pre-op Diagnosis: 1. L4-5 spondylolisthesis, grade 1 2. L4-5 degenerative disc disease with stenosis and radiculopathy Post-op Diagnosis: same as pre-op Procedures performed: 1. ?L4-5 bilateral laminectomy, partial medial facetectomies and foraminotomies of L4 and L5 nerve roots along with total facetectomies at L4-5 on the right for complete decompression of the right L4 nerve root 2. ?L4-5 posterior spinal fusion. 3. ?L4-5 posterior spinal instrumentation, GetSet, Xtant instrumentation. 4. ?Use of local autograft bone Anesthesia: AGAPITO Primary Surgeon: Segundo Chu Estimated blood loss (mL): 150 Findings: Stenosis Specimens: None Drains: Hemovac drain x 1 Indications for Procedures: INDICATIONS: ?This is a 62-year-old female with refractory back and right leg pain from degenerative spondylolisthesis and lumbar stenosis at L4-5. ?Patient has failed full conservative therapy including medication management, physical therapy, and lumbar injections. Due to the persistence of symptoms and reduction in the ADLs, patient elected surgical treatment.?Patient, therefore, understood indications for the surgery as well as its risks, benefits, and alternatives. ?These risks include but are not limited to paralysis, infection, hematoma, dural tear, nerve root injury, nonunion, DVT/PE, stroke, ID, etc. ?All questions were answered. Informed consent was obtained. Detailed description of Procedure: ? OPERATIVE PROCEDURE: ?The patient was taken to the operating room by the Anesthesiology Service and had satisfactory general anesthesia.?A first-generation cephalosporin was given within 1 hour of surgical incision. ?2 gm of cefazolin was given IV. ?Venous thromboembolic prophylaxis was performed with sequential devices. (Charles was placed using standard sterile technique)?The patient was then positioned prone on a standard OSI frame with the abdomen hanging free and all bony prominences well padded. ?The low back was then prepped and draped in its entirety in the usual sterile fashion. Before incision, a formal timeout was taken per protocol. We next took a midline longitudinal approach and performed subperiosteal dissection out to the tips of the transverse processes of L4 and L5.?Intraoperative radiographic localization of level was confirmed. ?We then began the laminectomy as well as decompression by removing the spinous process of L4. ?We entered the spinal canal, resecting the ligamentum flavum in its entirety over this region. Patient had significant stenosis in the lateral recess and neural foramina.?Partial medial facetectomy was then performed with an osteotome to get lateral to the facet overhang, but just medial to the pedicles and nerve roots. ?Kerrison's were then used to perform foraminotomies of the L4 and L5 nerve roots bilaterally. In order to get further lateral to the right L4 nerve root, total facetectomy was performed at L4-5 on the right. ?In this way, the right L4 nerve root was completely visualized and foraminized. ?In this way, we completed decompression at L4-5 with foraminotomies of the L4 and L5 nerve roots bilaterally. Satisfied with this, we then turned our attention to perform spinal instrumentation and posterolateral fusion. Using anatomic landmarks and guided by direct visualization of the pedicles from within the canal, pedicle screws were placed bilaterally at L4 and L5. ?All the screws were completely interosseous as determined by bony palpation. ?Before the screws were inserted, the transverse processes were decorticated with a high-speed bur at L4 and L5. ?Local autograft bone was placed over the decorticated elements bilaterally from L4-5.?The screws were then inserted which were under tapped by 1 mm. ?Two rods were placed from L4-5, set screws engaged and tightened down to their final torque.?Everything was tightened down. ?A very rigid construct was achieved. ?Final x-ray was taken, demonstrated good position of the spine and all of the implants. Satisfied with this, we then achieved hemostasis. ?We then copiously irrigated the wound with Irrisept. ?We then inserted a Hemovac drain through a separate stab incision. ?The wound was then closed in layer with interrupted 1 and 2-0 Vicryl sutures and dusted with vancomycin powder. ?A 3-0 Monocryl was used for the skin. The skin edges were sealed with Dermabond. ?A dry sterile dressing was applied. ?The patient was then returned to the hospital bed, extubated, and taken to the recovery room in stable condition. Spinal cord monitoring remained stable throughout the operation. SUPERVISOR QUILTING: ?TANIYA Page PA-C, assisted throughout the procedure with positioning, draping, retraction, wound closure, and dressing application. POSTOPERATIVE CARE: ?The patient will be recovered in PACU and then a regular nursing floor. ??Once the drainage is low and pain is under control, patient will be discharged home per clinical indication. Patient will follow up in the office in 6 weeks. ?At that time, AP and lateral x-rays of the lumbar spine will be obtained to assess instrumentation and fusion. Signal Circuit Designer: Godfrey Pack Other Provider present: No
--- NOTE | 2023-10-09 13:23 | PC.NURSE ---
Medicated with Dilaudid IV as ordered for pain; lying on right side with pillow to back and pillow between knees
--- NOTE | 2023-10-09 13:28 | PC.NURSE ---
Medicated as ordered for pain; does not rate pain. Moving all extremities without difficulty.
--- NOTE | 2023-10-09 13:33 | PC.NURSE ---
Medicated for pain with IV Dilaudid as ordered; does not rate pain
[2023-10-09] MEDS: 0.9 % SODIUM CHLORIDE 1,000 ML 100 ML IV ×2 (13:36→17:38)
--- NOTE | 2023-10-09 14:33 | SWNOTE1 ---
SW met with pt and in room. Pt lives at home with , independent at home. SW spoke with them about hemovac drain and need for HH to be set up at discharge. Pt and in agreement. SW provided list from medicare.gov and pt/pt's do not have preference. has heard of [facility]. Referral sent to__. Referral included face sheet, and operative note.
--- NOTE | 2023-10-09 15:17 | SWNOTE1 ---
SW received call from [facility] and they are able to accept. SW or nursing to send discharge orders once pt is discharged.
--- NOTE | 2023-10-09 15:36 | SWNOTE1 ---
SW took packet to the med/surge floor in case of dc this evening or over the weekend.
[2023-10-09] MEDS: OXYCODONE HCL 5 MG TABLET PO ×2 (15:44→21:33)
--- NOTE | 2023-10-09 16:08 | SWNOTE1 ---
BIBIANA completed HCPOA with patient. Copy placed in chart and copy given to patient along with booklet. BIBIANA reminded pt and that pt will be going home with [place] .
--- NOTE | 2023-10-09 17:28 | P.PN_ITS ---
Progress Note: Subjective Subjective Interval history: Patient admitted for lumbar disc surgery-consultation for Medical management When I saw patient up on the medical surgical floor, she was sitting up at the bedside eating her dinner, seemed fairly comfortable from a pain control standpoint. Only complaint really was her shoulder pain which has been a longstanding issue as well. Exam Constitutional Vital Signs, click to edit/add: Last Vital Signs Temp 97.4 F L 10/09/23 16:33 Pulse 93 H 10/09/23 16:33 Resp 18 10/09/23 16:33 BP 126/79 10/09/23 16:33 Pulse Ox 94 L 10/09/23 16:33 O2 Del Method Room Air 10/09/23 16:33 O2 Flow Rate 3 10/09/23 13:24 Documenting provider has reviewed patient's vital signs: yes Common normals: no apparent distress Chest Common normals: inspection of chest normal Respiratory Common normals: normal respiratory effort and no retractions Auscultation: diminished lung sounds Cardio Common normals: regular rate, regular rhythm and no murmurs GI Common normals: Normal to inspection, nondistended, normoactive bowel sounds present, soft to palpation and no hepatosplenomegaly Progress Note: A&P Assessment and Plan (1) Fibromyalgia: (2) Back pain: (3) Degeneration of lumbosacral intervertebral disc: (4) Depression: (5) HTN (hypertension): (6) Smoker: Plan Admission findings: Patient mated status post surgical intervention for lumbar disc disease-plan per Dr. Saint Izaguirre Likely mild COPD based on exam-lungs are fairly clear currently. Encourage PEP, continue with home inhalers Generalized anxiety disorder-continue with home medications GERD-continue with home medications Discharge disposition per surgery.
[2023-10-09] MEDS: CEFAZOLIN SODIUM/DEXTROSE,ISO 2 GM/50 ML PIGGYBACK IV (17:38)
[2023-10-09] MEDS: MORPHINE SULFATE 2 MG/ML SYRINGE IV ×2 (19:40→23:45)
[2023-10-09] MEDS: NICOTINE 21 MG PATCH.TD24 TD (19:40)
[2023-10-09] MEDS: SENNOSIDES/DOCUSATE SODIUM 1 TAB TABLET PO (21:29)
[2023-10-09] MEDS: TRAZODONE HCL 50 MG TABLET PO (21:33)
[2023-10-09] MEDS: CYCLOBENZAPRINE HCL 10 MG TABLET PO (21:36)
[2023-10-10] MEDS: CEFAZOLIN SODIUM/DEXTROSE,ISO 2 GM/50 ML PIGGYBACK IV (01:01)
[2023-10-10] MEDS: MORPHINE SULFATE 2 MG/ML SYRINGE IV ×6 (01:09→23:08)
[2023-10-10] MEDS: OXYCODONE HCL 5 MG TABLET PO ×3 (03:05→20:42)
[2023-10-10 03:21] VITALS: BP 123/72; PULSE 96; TEMP 36.6; O2SAT 92
[2023-10-10] MEDS: 0.9 % SODIUM CHLORIDE 1,000 ML 100 ML IV ×2 (05:32→13:59)
[2023-10-10] MEDS: OMEPRAZOLE 40 MG CAPSULE.DR PO (05:35)
[2023-10-10 07:42] VITALS: BP 128/74; PULSE 90; TEMP 36.8; O2SAT 92
[2023-10-10 08:08] LABS: Hematocrit 31.7 % (36.0-48.0); Hemoglobin 10.3 g/dL (12.0-16.0)
[2023-10-10 08:15] LABS: Anion Gap 10.2; BUN Creatinine Ratio 21.9; Calcium 8.6 mg/dL (8.5-10.1); Carbon Dioxide 30.1 mmol/L (21.0-32.0); Chloride 104 mmol/L (98-107); Estimated GFR (African America >60 (>=60); Estimated GFR (Non-African Ame >60 (>=60); Glucose 95 mg/dL (74-106); Potassium 4.3 mmol/L (3.5-5.1); Sodium 140 mmol/L (136-145)
[2023-10-10] MEDS: SENNOSIDES/DOCUSATE SODIUM 1 TAB TABLET PO ×2 (09:04→20:43)
[2023-10-10] MEDS: POLYETHYLENE GLYCOL 3350 17 GM POWDER PACKET PO (09:04)
[2023-10-10] MEDS: BISACODYL 5 MG TABLET PO (09:04)
--- NOTE | 2023-10-10 09:39 | PT.DAILY ---
Physical Therapy Daily Note PT Daily Note/Assess Start: 10/10/23 09:27 Freq: Status: Active Protocol: Document 10/10/23 09:27 [id number] (Rec: 10/10/23 09:39 [id number]) Physical Therapy Daily Note/Assessment Time In/Time Out Time In 08:08 Time Out 08:20 Pain In Pain Level 9 Pain Out Pain Level 9 Subjective Subjective Patient received seated at edge of bed, reports she just received her pain meds. Patient agreeable to work with PT and perform stairs. States she would like to go to the [facility] for additional rehab as she does not feel she will be able to care for her whom requires a high level of care and mother in law at this time. Patient advised to speak with nursing and/or the doctor. Therapeutic Activity Time Therapeutic Activity Minutes (minutes) 12 Therapeutic Activity Units 1 Therapeutic Activity Treatment Chair Transfer Ability Modified Independent Therapeutic Activity Comments Sit to stand transfer to IV pole is MOD I, hand placement is one hand on bed and the other on bedrail. Patient ambulated ~100 ft with use of IV pole in R hand with SBA +1 to therapy room. Navigated 4 steps in reciprocal while ascending with RADHA handrails, descended in step to gait leading with L foot with use of RADHA handrails for safety. Ambulated ~100 ft. with use of IV pole in R hand with SBA x 1 to room and seated EOB per patient requests. States she is not ready to sit in chair or lay down. CBWR, nursing notified of patient placement and acknowledge information. Total Physical Therapy Time Total Therapy Minutes 12 Total Physical Therapy Units 1 Summary Daily Note Summary Patient demonstrates increased ambulation distance, slow pace of gait. Uses IV pole for AD, reaches for handrail to the L side of cottrell 4 times for support during walking. Able to navigate stairs, demonstrates RADHA LE weakness in step to gait while descending and requiring RADHA handrails for safety and support. Patient reports she only has one handrail on the right to get into her trailer. Patient would benefit from [facility] PT upon DC to address functional deficits.
--- NOTE | 2023-10-10 10:33 | P.ORPN_ITS ---
Progress Note: A&P Assessment and Plan (1) Fibromyalgia: (2) Back pain: (3) Degeneration of lumbosacral intervertebral disc: (4) Depression: (5) HTN (hypertension): (6) Smoker: Plan POD #1 S/P L4-5 decompression/ fusion - PT/OT eval-pt doing well and walking the halls, has need for assistance to rise from sitting or laying. - ABLA Hgb 13.8 prior to surgery and has trended to 10.3 post op, vitals stable, afebrile overnight. - Neuro intact, some muscle spasms can be normal, decreased sensation to L thigh was present prior to surgery. - 5/5 strength to lower extremities - Hemovac in place, 430ml since surgery, keep in place for today, possibly remove tomorrow - Pt anxious about returning home as she has no help and cannot get up by herself, interested in the [place] - Awaiting bowel movement for discharge Subjective Subjective Principal diagnosis: L4-5 Decompression and Fusion Interval history: Patient is POD #1 status post L4?5 decompression and fusion. Patient is doing well this morning, states that she has been up walking and the hardest part is getting out of bed. Pain is controlled. Patient denies BM or flatus so far, but denies abdominal pain. Patient also denies nausea/vomiting and is eating. She is still having numbness to her left thigh and pain to her lower extremities. She is having some muscle spasms to her lower extremities as well. Exam Narrative Exam Narrative: On exam patient is laying in the hospital bed in no apparent distress, age-appro priate, alert and oriented x 3. On inspection of her lumbar dressing is clean dry and intact with a Hemovac in place. Sensation intact to bilateral lower extremities, other than decreased sensation to left thigh. 5/5 strength to bilateral lower extremities. 2+ DP pulse palpated bilaterally. Constitutional Vital Signs, click to edit/add: Last Vital Signs Temp 98.3 F 10/10/23 07:42 Pulse 90 10/10/23 07:42 Resp 16 10/10/23 07:47 BP 128/74 10/10/23 07:42 Pulse Ox 92 L 10/10/23 07:42 O2 Del Method Room Air 10/10/23 07:42 O2 Flow Rate 3 10/09/23 13:24
[2023-10-10 11:10] VITALS: BP 134/51; PULSE 88; TEMP 36.7; O2SAT 93
[2023-10-10 15:25] VITALS: BP 130/58; PULSE 91; TEMP 36.7; O2SAT 94
--- NOTE | 2023-10-10 15:48 | PM.IMPN1 ---
Progress Note: A&P Assessment and Plan (1) S/P lumbar fusion: Assessment and Plan: S/P L4-5 decompression/ fusion. Post op management as per orthopedic surgery. Appeared comfortable, ambulating w.o assistance but reporting poorly controlled pain. PT/OT eval. Pain control as per orthopedic surgery. (2) Wheezing on auscultation: Assessment and Plan: No formal diagnosis of COPD, but smokes. Added duonebs as needed. No resp symptoms. (3) Fibromyalgia: Assessment and Plan: C/w Etodolac. (4) Degeneration of lumbosacral intervertebral disc: Assessment and Plan: S/P L4-5 decompression/ fusion (5) Depression: Assessment and Plan: C/w home medications. Anxious about returning home. Increase Alprazolam to TID. Qualifiers: Depression Type: major depressive disorder Major depression recurrence: recurrent Active/Remission status: in full remission Qualified Code(s): F33.42 - Major depressive disorder, recurrent, in full remission (6) HTN (hypertension): Assessment and Plan: Not on any medications. Outpatient f/u Qualifiers: Hypertension type: primary hypertension Qualified Code(s): I10 - Essential (primary) hypertension (7) Smoker: Assessment and Plan: Nicotine patch in place. Internal Medicine - PN: Subj Subjective Interval history: Seen and examined. POD #1. Reports poorly controlled pain. Patient previously was sobbing and tearful when informed that she will likely be discharged home once cleared by Orthopedics. Patient has been ambulating with minimal assist post operatively. Exam Constitutional Vital Signs, click to edit/add: Last Vital Signs Temp 98.1 F 10/10/23 15:25 Pulse 91 H 10/10/23 15:25 Resp 16 10/10/23 15:25 BP 130/58 10/10/23 15:25 Pulse Ox 94 L 10/10/23 15:25 O2 Del Method Room Air 10/10/23 15:25 O2 Flow Rate 3 10/09/23 13:24 Documenting provider has reviewed patient's vital signs: yes Common normals: no apparent distress and oriented x3 General appearance: cooperative Respiratory Common normals: normal respiratory effort and clear to auscultation bilaterally Effort & inspection: able to speak in complete sentences Auscultation: clear to auscultation bilaterally Cardio Common normals: regular rate, S1 normal heart sound and S2 normal heart sound Rate: regular rate Heart sounds: S1 normal and S2 normal Back & Pelvis Thoracic spine/upper back: ROM limited and paraspinal muscle tenderness Lumbar spine/lower back: ROM limited Extremity Common normals: no clubbing, cyanosis or edema Neuro Common normals: oriented x3, moves all extremities and no focal motor deficits Psych Common normals: mental status grossly normal, denies hallucinations, denies homicidal ideation and denies suicidal ideation Internal Medicine - PN: Obj Da Labs Labs: Laboratory Results - last 24 hr 10/10/23 08:02 Hgb 10.3 L Hct 31.7 L Sodium 140 Potassium 4.3 Chloride 104 Carbon Dioxide 30.1 Anion Gap 10.2 BUN 14.0 Creatinine 0.64 Est GFR ( Amer) >60 Est GFR (Non-Af Amer) >60 BUN/Creatinine Ratio 21.9 Glucose 95 Calcium 8.6
[2023-10-10] MEDS: ALPRAZOLAM 0.25 MG TABLET 0.5 MG PO (16:20)
[2023-10-10] MEDS: CYCLOBENZAPRINE HCL 10 MG TABLET PO ×2 (17:14→20:41)
--- NOTE | 2023-10-10 17:25 | US_ITS ---
The [address] [address] Patient Name: CARLA ABDI MRN: [id number] date: 1960 Sex: F Assigned Patient Location: [place] Current Patient Location: [place] Accession/Order Number: [id number] Exam Date: 10/10/2023 19:04 Report Date: 10/10/2023 20:56 At the request of: SHAIKH TOM Procedure: US venous doppler LE BI EXAM: US venous doppler LE BI HISTORY: pain/swelling bilateral. Clinical suspicion of DVT right and left leg COMPARISON: None. TECHNIQUE: [Doppler ultrasound right and left leg veins. William scale, color Doppler and compression imaging. FINDINGS: Right leg: Deep veins visualized groin to costal calf demonstrate normal color flow, compression and augmentation. No thrombus or occlusion. Greater saphenous vein at the groin is patent without thrombus. No abnormal fluid collection seen. Left leg: Deep veins groin to proximal calf demonstrate normal color flow, compression and augmentation without thrombus or occlusion. Saphenous vein at the groin is patent without thrombus. No abnormal fluid collection. US/US venous doppler LE BI IMPRESSION: 1. Negative for DVT or saphenous thrombus right leg veins. No fluid collection or Wolf's cyst. 2. Negative for DVT or saphenous thrombus left leg veins. No fluid collection or Wolf's cyst. Electronically authenticated by: MI HINKLE Date: 10/10/2023 20:56
[2023-10-10] MEDS: ORPHENADRINE CITRATE 100 MG TABLET.ER PO (18:01)
[2023-10-10 20:00] VITALS: BP 158/81; PULSE 78; PULSE 87; TEMP 37.1; O2SAT 93
[2023-10-10] MEDS: NICOTINE 21 MG PATCH.TD24 TD (20:51)
--- NOTE | 2023-10-10 20:58 | PC.NURSE ---
Patient found wearing SCD attached to the motor standing up in the room with them on. I explained to her those are a fall hazard and she could get severely injured getting out of bed with those still attached. The SCD are to be taken off when OOB. She said Fadia been walking out in the halls with them attached to me still. I explained it is unsafe to walk around with the sleeves on or get OOB with them still attached to the motor. I informed the Driver Guide that I'm afraid she will not be compliant. I also told her she is on muscle relaxers and pain pills that can cause her to become unsteady or too drowsy to ambulate. Will continue to monitor.
[2023-10-11] VITALS: BP 145/74; PULSE 86; TEMP 36.9; O2SAT 91
[2023-10-11] MEDS: MORPHINE SULFATE 2 MG/ML SYRINGE IV ×2 (01:18→06:23)
[2023-10-11] MEDS: OXYCODONE HCL 5 MG TABLET PO ×2 (03:07→09:23)
[2023-10-11 04:00] VITALS: BP 117/66; TEMP 37.2; O2SAT 91
[2023-10-11] MEDS: OMEPRAZOLE 40 MG CAPSULE.DR PO (06:20)
[2023-10-11 08:10] LABS: Hemoglobin 9.8 g/dL (12.0-16.0)
[2023-10-11 08:28] VITALS: BP 115/77; PULSE 87; TEMP 36.9; O2SAT 91
[2023-10-11 08:29] LABS: Anion Gap 9.2; BUN Creatinine Ratio 20.3; Calcium 8.5 mg/dL (8.5-10.1); Carbon Dioxide 29.8 mmol/L (21.0-32.0); Chloride 105 mmol/L (98-107); Estimated GFR (African America >60 (>=60); Estimated GFR (Non-African Ame >60 (>=60); Glucose 113 mg/dL (74-106); Sodium 140 mmol/L (136-145)
--- NOTE | 2023-10-11 09:06 | PM.ORPN ---
Progress Note: A&P Assessment and Plan (1) S/P lumbar fusion: (2) Wheezing on auscultation: Plan POD #2 S/P L4-5 decompression/ fusion - PT/OT eval - ABLA Hgb 9.8 this am, vitals stable, afebrile overnight. - Neuro intact, some muscle spasms can be normal, decreased sensation to L thigh was present prior to surgery. Norflex helped vs the flexeril she had been taking, will stop Flexeril and discharge her with Norflex. - 5/5 strength to lower extremities - Hemovac in place, < 50ml in the last 12 hours, hemovac removed, keep tegaderm in place for 24 hrs then regular dressing changes daily. - Percocet sent to Pharmacy,no NSAIDs for 6 months post fusion, Tylenol okay. - Cover incision and drain site with a clean dry dressing when discharged until it is dry for a 24 hr period, then can leave open to air. Change daily or as needed until then. - Call with concerns, discharge today. Follow up in [address] Verdin. Plan discussed with Supervising Physician, Dr Verdin. Subjective Subjective Principal diagnosis: Post Op L4-5 Decompression/Fusion Interval history: Pt is POD #2 status post L4-5 Decompression/Fusion and patient is doing well. She states that her muscle spasms increased and were relieved by Norflex given by the Hospitalist. She has been up out of bed without issue today. She endorses she had a small BM today. Exam Narrative Exam Narrative: On exam patient is walking around the room upon my entry, in no apparent distress, age-appropriate, alert and oriented x 3. On inspection of the midline lumbar incision there is some mild serosanguineous drainage, nonpurulent, no erythema, no warmth to touch. 5/5 strength to bilateral lower extremities. Decreased sensation to left thigh with light touch, otherwise sensation intact to light touch bilateral lower extremities. Constitutional Vital Signs, click to edit/add: Last Vital Signs Temp 98.5 F 10/11/23 08:28 Pulse 87 10/11/23 08:28 Resp 16 10/11/23 08:29 BP 115/77 10/11/23 08:28 Pulse Ox 91 L 10/11/23 08:28 O2 Del Method Room Air 10/11/23 08:28 O2 Flow Rate 3 10/09/23 13:24
[2023-10-11] MEDS: POLYETHYLENE GLYCOL 3350 17 GM POWDER PACKET PO (09:21)
[2023-10-11] MEDS: BISACODYL 5 MG TABLET PO (09:21)
[2023-10-11] MEDS: SENNOSIDES/DOCUSATE SODIUM 1 TAB TABLET PO (09:21)
[2023-10-11] MEDS: CYCLOBENZAPRINE HCL 10 MG TABLET PO (09:23)
--- NOTE | 2023-10-11 11:32 | PM.IMPN1 ---
Progress Note: A&P Assessment and Plan (1) S/P lumbar fusion: Assessment and Plan: S/P L4-5 decompression/ fusion. Post op management as per orthopedic surgery. Appeared comfortable, ambulating w.o assistance. Stable for discharge as per orthopedics. (2) Wheezing on auscultation: Assessment and Plan: No formal diagnosis of COPD, but smokes. Added duonebs as needed. No resp symptoms. (3) Fibromyalgia: Assessment and Plan: C/w Etodolac. (4) Degeneration of lumbosacral intervertebral disc: Assessment and Plan: S/P L4-5 decompression/ fusion (5) Depression: Assessment and Plan: C/w home medications. Anxious about returning home. Increase Alprazolam to TID. Qualifiers: Depression Type: major depressive disorder Major depression recurrence: recurrent Active/Remission status: in full remission Qualified Code(s): F33.42 - Major depressive disorder, recurrent, in full remission (6) HTN (hypertension): Assessment and Plan: Not on any medications. Outpatient f/u Qualifiers: Hypertension type: primary hypertension Qualified Code(s): I10 - Essential (primary) hypertension (7) Smoker: Assessment and Plan: Nicotine patch in place. Internal Medicine - PN: Subj Subjective Interval history: Seen and examined. POD #2. pain is much better. US b/l LE ordered yesterday negative for DVT. Exam Constitutional Vital Signs, click to edit/add: Last Vital Signs Temp 98.5 F 10/11/23 08:28 Pulse 87 10/11/23 08:28 Resp 16 10/11/23 08:29 BP 115/77 10/11/23 08:28 Pulse Ox 91 L 10/11/23 08:28 O2 Del Method Room Air 10/11/23 08:28 O2 Flow Rate 3 10/09/23 13:24 Documenting provider has reviewed patient's vital signs: yes Common normals: no apparent distress and oriented x3 General appearance: cooperative Respiratory Common normals: normal respiratory effort and clear to auscultation bilaterally Effort & inspection: able to speak in complete sentences Auscultation: clear to auscultation bilaterally Cardio Common normals: regular rate, S1 normal heart sound and S2 normal heart sound Rate: regular rate Heart sounds: S1 normal and S2 normal Back & Pelvis Thoracic spine/upper back: ROM limited and paraspinal muscle tenderness Lumbar spine/lower back: ROM limited Extremity Common normals: no clubbing, cyanosis or edema Neuro Common normals: oriented x3, moves all extremities and no focal motor deficits Psych Common normals: mental status grossly normal, denies hallucinations, denies homicidal ideation and denies suicidal ideation Internal Medicine - PN: Obj Da Labs Labs: Laboratory Results - last 24 hr 10/11/23 07:55 Hgb 9.8 L Hct 30.0 L Sodium 140 Potassium 4.0 Chloride 105 Carbon Dioxide 29.8 Anion Gap 9.2 BUN 12.0 Creatinine 0.59 Est GFR ( Amer) >60 Est GFR (Non-Af Amer) >60 BUN/Creatinine Ratio 20.3 Glucose 113 H Calcium 8.5
--- NOTE | 2023-10-12 09:38 | SWNOTE1 ---
Pt was discharged yesterday, 10/11/23, hemovac drain was removed. [facility] sent an email requesting discharge orders. BIBIANA faxed over physician progress notes from 10/09 and 10/10 to [facility], along with [place] [facility] [place] and [facility].
--- NOTE | 2023-10-12 09:45 | SWNOTE1 ---
SW reviewed progress notes from pt's stay and pt was discharged on 10/10 and her hemovac drain was removed. SW called and left a message for pt to see if she still wants HH to come in. Waiting for call back.
--- NOTE | 2023-10-12 12:48 | SWNOTE1 ---
SW attempted to call pt again, no answer. Pt's phone number listed is the same as pt's . Pt's phone will ring 2-3 times then go busy.
--- NOTE | 2023-10-14 11:23 | SWNOTE1 ---
BIBIANA called pt again, no answer. BIBIANA notified [facility] that SW is still not able to get ahold of pt at this time.
--- OUTSIDE RECORDS SUMMARY | 2023-10-14 12:18 | XMS_ITS | CCD ---
Author Organization [facility] CliniSyid Care Team Providers Care Policy Intern Name Role Phone MD Nesha Bryant Attending Provider [phone] JIE Edwards Primary Care Provider Asaad, Imad [...] LEON, Manuel Yoo Attending Unavailable Giedraitis , Andkrishan Yoo Attending Unavailable Gieditis , Manuel Yoo Attending Unavailable Giedcitlalli LENO, Manuel Yoo Attending Unavailable Giedraitis MD, Manuel [...] 30 days Apr, Active polyethylene glycol 3350 431026 mg / potassium chloride 2970 mg / sodium bicarbonate 6740 mg / sodium chloride 5860 mg / sodium sulfate 43717 mg powder for oral solution (2 sources) [...] Test Name Value Interpretation Reference Range Facility [facility] 05-09-2022 L Specimen: [id number] Received: 05/09/22 Status: EDUARD Zaragoza Num: [id number] Spec Type: Surgical Subm Dr: Nesha Bryant MD Tissues: A Gastric Biopsy (GASTRIC) B Esophagus Biopsy (DISTAL ESOPHAGUS) C Esophagus Biopsy (PROXIMAL ESOPHAGUS) D Colon Biopsy (CECAL POLYP) E Colon Biopsy (SIGMOID POLYP) F Colon Biopsy (RECTAL POLYPS X3) Procedures: /, Gross/Micro L4/6 Age/ Patient Sex Location Account Attending Physician Nancy Joyce 61/F [id number] Nesha Bryant MD SPEC NUM: [id number] RECD: 05/09/22 STATUS: EDUARD ZARAGOZA NUM: [id number] KATY: 05/09/22- SUBM DR: Nesha Bryant MD ENTERED: 05/09/22-[address] [facility] [address]: SPEC TYPE: Surgical DEPT: S ORDERED: [...] mucosal fold. - Negative for adenoma/dysplasia. Specimen: [id number] Received: 05/09/22 Status: EDUARD Nickbatsheva Num: [id number] Spec Type: Surgical Subm Dr: Nesha Bryant MD Tissues: A Gastric Biopsy (GASTRIC) B Esophagus Biopsy (DISTAL ESOPHAGUS) C Esophagus Biopsy (PROXIMAL ESOPHAGUS) D Colon Biopsy (CECAL POLYP) E Colon Biopsy (SIGMOID POLYP) F Colon Biopsy (RECTAL POLYPS X3) Procedures: HE/12, Gross/Micro L4/6 Patient: Nancy Joyce [id number] (Continued) Specimen: [id number] Received: 05/09/22 (Continued) Pathological Diagnosis (Continued) Signed (signature on file) Carin Oliveros MD 05/12/22 1130 Specimen: [id number] Received: 05/09/22 Status: EDUARD Zaragoza Num: [id number] Spec Type: Surgical Subm Dr: Nesha Bryant MD Tissues: A Gastric Biopsy (GASTRIC) B Esophagus Biopsy (DISTAL ESOPHAGUS) C Esophagus Biopsy (PROXIMAL ESOPHAGUS) D Colon Biopsy (CECAL POLYP) E Colon Biopsy (SIGMOID POLYP) F Colon Biopsy (RECTAL POLYPS X3) Procedures: ROSI/Barbara, Gross/Micro L4/6 Patient: Nancy Joyce [id number] (Continued) Specimen: [id number] Received: 05/09/22 (Continued) Pathological Diagnosis (Continued) E. [...] cassette labeled 1. (more content not included)... [facility] XR MODIFIED BARIUM SWALLOWon 03-25-2022 XR [...] DENNY RINCON Date: 2022-03-25 13:53 Normal [facility] INSULINon 03-13-2022 Insulin 3.9 uIU/mL Normal 2.6-24.9 [facility] Comment on above: Performed By: #### O BSCRN #### [facility] [address] [address] [address] Ambrosio Ramirez XR CSPINE MIN 4 [...] DENNY RINCON Date: 2022-03-13 08:09 Normal [facility] CBC AUTO DIFFon 03-12-2022 BASO # 0.0 103/ul Normal 0.0-0.1 [facility] Comment on above: Performed By: #### C BC #### [facility] [address] [address] [address] Ambrosio Ramirez Basophils/100 WBC (Bld) 0.7 % Normal 0.2-2.0 [facility] Comment on above: Performed By: #### C BC #### [facility] [address] [address] [address] Ambrosio Ramirez EO # 0.1 103/ul Normal 0.0-0.7 [facility] Comment on above: Performed By: #### C BC #### [facility] [address] [place] [address] Dr. Ambrosio Ramirez Eosinophils/100 WBC (Bld) 0.9 % Normal 0.9-7.0 [facility] Comment on above: Performed By: #### C BC #### [facility] [address] [place] [address] Dr. Ambrosio Ramirez Erythrocyte distribution width (RBC) [Ratio] 12.3 % Normal 11.0-15.0 [facility] Comment on above: Performed By: #### C BC #### [facility] [address] [place] [address] Dr. Ambrosio Ramirez Hematocrit (Bld) [Volume fraction] 46.0 % Normal 36.0-48.0 [facility] Comment on above: Performed By: #### C BC #### [facility] [address] [place] [address] Dr. Ambrosio Ramirez Hemoglobin (Bld) [Mass/Vol] 15.2 g/dL Normal 12.0-16.0 [facility] Comment on above: Performed By: #### C BC #### [facility] [address] [place] [address] Dr. Ambrosio Ramirez IG # 0.03 10e3/ul Normal 0.00-0.03 [facility] Comment on above: Performed By: #### C BC #### [facility] [address] [place] [address] Dr. Ambrosio Ramirez IG % 0.5 % Normal 0.0-0.5 [facility] Comment on above: Performed By: #### C BC #### [facility] [address] [place] [address] Dr. Ambrosio Ramirez LYMPH # 2.0 103/ul Normal 1.2-3.8 [facility] Comment on above: Performed By: #### C BC #### [facility] [address] [place] [address] Dr. Ambrosio Ramirez Lymphocytes/100 WBC (Bld) 35.0 % Normal 20.5-60.0 [facility] Comment on above: Performed By: #### C BC #### [facility] [address] [place] [address] Dr. Ambrosio Ramirez MANUAL DIFF REQ NO Normal [facility] Comment on above: Performed By: #### C BC #### [facility] [address] [place] [address] Dr. Ambrosio Ramirez MCH (RBC) [Entitic mass] 33.8 pg Normal 26.7-34.0 [facility] Comment on above: Performed By: #### C BC #### [facility] [address] [place] [address] Dr. Ambrosio Ramirez MCHC (RBC) [Mass/Vol] 33.0 g/dL Normal 29.9-35.2 [facility] Comment on above: Performed By: #### C BC #### [facility] [address] [place] [address] Dr. Ambrosio Ramirez MCV (RBC) [Entitic vol] 102.2 fL Critically high 81.0-99.0 [facility] Comment on above: Performed By: #### C BC #### [facility] [address] [place] [address] Dr. Ambrosio Ramirez MONO # 0.4 103/ul Normal 0.3-0.8 [facility] Comment on above: Performed By: #### C BC #### [facility] [address] [place] [address] Dr. Ambrosio Ramirez Monocytes/100 WBC (Bld) 7.2 % Normal 1.7-12.0 [facility] Comment on above: Performed By: #### C BC #### [facility] [address] [place] [address] Dr. Ambrosio Ramirez NEUT # 3.2 103/ul Normal 1.4-6.5 [facility] Comment on above: Performed By: #### C BC #### [facility] [address] [place] [address] Dr. Ambrosio Ramirez Neutrophils/100 WBC (Bld) 55.7 % Normal 43.0-75.0 [facility] Comment on above: Performed By: #### C BC #### [facility] [address] [place] [address] Dr. Ambrosio Ramirez Platelet mean volume (Bld) [Entitic vol] 9.1 fL Critically low 9.5-13.5 [facility] Comment on above: Performed By: #### C BC #### [facility] [address] [place] [address] Dr. Ambrosio Ramirez PLT 234 103/ul Normal 150-450 [facility] Comment on above: Performed By: #### C BC #### [facility] [address] [place] [address] Dr. Ambrosio Ramirez RBC 4.50 106/ul Normal 4.20-5.40 [facility] Comment on above: Performed By: #### C BC #### [facility] [address] [place] [address] Dr. Ambrosio Ramirez WBC 5.7 103/ul Normal 4.0-11.0 [facility] Comment on above: Performed By: #### C BC #### [facility] [address] [place] [address] Dr. Ambrosio Ramirez FREE THYROXINE INDEX T7on FTI 2.41 Normal 1.30-4.50 [facility] Comment on above: Performed By: #### A 1C #### [facility] [address] [place] [address] Dr. Ambrosio Ramirez T3U 33.0 % Normal 30.0-39.0 [facility] Comment on above: Performed By: #### A 1C #### [facility] [address] [place] [address] Dr. Ambrosio Ramirez T4 [Mass/Vol] 7.30 ug/dL Normal 4.80-13.90 [facility] Comment on above: Performed By: #### A 1C #### [facility] [address] [place] [address] Dr. Ambrosio Ramirez GLYCOHEMOGLOBIN A1Con 2022 ADA RECOMMENDATION SEE BELOW Normal [facility] Comment on above: Result Comment: ADA RECOMMENDED LIMIT 4.0 - 6.0 ADA THERAPEUTIC TARGET < 7.0 ACTION SUGGESTED > 7.0 Performed By: #### A 1C #### [facility] [address] [address] [address] Ambrosio Ramirez Glucose [Mass/Vol] 100 mg/dL Normal [facility] Comment on above: Performed By: #### A 1C #### [facility] [address] [place] [address] Dr. Ambrosio Ramirez HbA1c (Bld) [Mass fraction] 5.1 % Normal 4.5-6.2 [facility] Comment on above: Performed By: #### A 1C #### [facility] [address] [place] [address] Dr. Ambrosio Ramirez IRONon 03-12-2022 Iron [Mass/Vol] 148.0 ug/dL Normal 50.0-170.0 [facility] Comment on above: Performed By: #### O BSCRN #### [facility] [address] [place] [address] Dr. Ambrosio Ramirez LIPID PROFILEon 03-12-2022 CHOL-HDL RATIO NORM SEE BELOW Normal [facility] Comment on above: Result Comment: 3.3 - 4.4 LOW RISK 4.4 - 7.1 AVERAGE RISK 7.1 - 11.0 MODERATE RISK >11.0 HIGH RISK Performed By: #### A 1C #### [facility] [address] [place] [address] Dr. Ambrosio Ramirez Cholesterol [Mass/Vol] 234 mg/dL Critically high <=200 [facility] Comment on above: Performed By: #### A 1C #### [facility] [address] [place] [address] Dr. Ambrosio Ramirez Cholesterol in HDL [Mass/Vol] 71 mg/dL Critically high 40-60 [facility] Comment on above: Performed By: #### A 1C #### [facility] [address] [place] [address] Dr. Ambrosio Ramirez Cholesterol in LDL [Mass/Vol] 132.4 mg/dL Normal [facility] Comment on above: Performed By: #### A 1C #### [facility] [address] [place] [address] Dr. Ambrosio Ramirez Cholesterol.total/Cho lesterol in HDL [Mass ratio] 3.3 {ratio} Normal [facility] Comment on above: Performed By: #### A 1C #### [facility] [address] [address] [address] Ambrosio Ramirez HDL NORMAL > or = 60 mg/dl - LOW CARDIOVASCULAR RISK <40 mg/dl - HIGH CARDIOVASCULAR RISK Normal [facility] Comment on above: Performed By: #### A 1C #### [facility] [address] [address] [address] Ambroiso Ramirez LDL CALC NORMAL SEE BELOW Normal [facility] Comment on above: Result Comment: <100 mg/dl OPTIMAL 100 - 129 mg/dl NEAR OR ABOVE OPTIMAL 130 - 159 mg/dl BORDERLINE HIGH 160 - 189 mg/dl HIGH >190 mg/dl VERY HIGH Performed By: #### A 1C #### [facility] [address] [address] [address] Ambrosio Ramirez Triglyceride [Mass/Vol] 153 mg/dL Critically high <=150 [facility] Comment on above: Performed By: #### A 1C #### [facility] [address] [address] [address] Ambrosio Ramirez VLDL CALC 30.6 mg/dL Normal [facility] Comment on above: Performed By: #### A 1C #### [facility] [address] [address] [address] Ambrosio Ramirez PROF 14(COMP METB)on 023 Albumin [Mass/Vol] 4.2 g/dL Normal 3.4-5.0 [facility] Comment on above: Performed By: #### A 1C #### [facility] [address] [address] [address] Ambrosio Ramirez Albumin/Globulin [Mass ratio] 1.3 {ratio} Normal [facility] Comment on above: Performed By: #### A 1C #### [facility] [address] [address] [address] Ambrosio Ramirez ALP [Catalytic activity/Vol] 62 U/L Normal 46-116 [facility] Comment on above: Performed By: #### A 1C #### [facility] [address] [address] [address] Ambrosio Ramirez ALT [Catalytic activity/Vol] 27 U/L Normal 14-59 [facility] Comment on above: Performed By: #### A 1C #### [facility] [address] [address] [address] Ambrosio Ramirez Anion gap [Moles/Vol] 12.8 mmol/L Normal [facility] Comment on above: Performed By: #### A 1C #### [facility] [address] [address] [address] Ambrosio Ramirez AST [Catalytic activity/Vol] 39 U/L Critically high 15-37 [facility] Comment on above: Performed By: #### A 1C #### [facility] [address] [place] [address] Dr. Ambrosio Ramirez Bilirubin [Mass/Vol] 0.4 mg/dL Normal 0.2-1.0 [facility] Comment on above: Performed By: #### A 1C #### [facility] [address] [place] [address] Dr. Ambrosio Ramirez Calcium [Mass/Vol] 9.1 mg/dL Normal 8.5-10.1 [facility] Comment on above: Performed By: #### A 1C #### [facility] [address] [place] [address] Dr. Ambrosio Ramirez Chloride [Moles/Vol] 103 mmol/L Normal 98-107 [facility] Comment on above: Performed By: #### A 1C #### [facility] [address] [address] [address] Ambrosio Ramirez CO2 [Moles/Vol] 30.5 mmol/L Normal 21.0-32.0 [facility] Comment on above: Performed By: #### A 1C #### [facility] [address] [place] [address] Dr. Ambrosio Ramirez Creatinine [Mass/Vol] 0.54 mg/dL Critically low 0.55-1.02 [facility] Comment on above: Performed By: #### A 1C #### [facility] [address] [address] [address] Ambrosio Ramirez EGFR-AF EMIRATI >60 Normal >=60 [facility] Comment on above: Performed By: #### A 1C #### [facility] [address] [address] [address] Ambrosio Ramirez EGFR-NON AF EMIRATI >60 Normal >=60 [facility] Comment on above: Performed By: #### A 1C #### [facility] [address] [address] [address] Ambrosio Ramirez Globulin (S) [Mass/Vol] 3.3 g/dL Normal [facility] Comment on above: Performed By: #### A 1C #### [facility] [address] [place] [address] Dr. Ambrosio Ramirez Glucose [Mass/Vol] 88 mg/dL Normal 74-106 [facility] Comment on above: Performed By: #### A 1C #### [facility] [address] [place] [address] Dr. Ambrosio Ramirez Potassium [Moles/Vol] 4.3 mmol/L Normal 3.5-5.1 [facility] Comment on above: Performed By: #### A 1C #### [facility] [address] [place] [address] Dr. Ambrosio Ramirez Protein [Mass/Vol] 7.5 g/dL Normal 6.4-8.2 [facility] Comment on above: Performed By: #### A 1C #### [facility] [address] [place] [address] Dr. Ambrosio Ramirez Sodium [Moles/Vol] 142 mmol/L Normal 136-145 [facility] Comment on above: Performed By: #### A 1C #### [facility] [address] [place] [address] Dr. Ambrosio Ramirez Urea nitrogen [Mass/Vol] 9.0 mg/dL Normal 7.0-18.0 [facility] Comment on above: Performed By: #### A 1C #### [facility] [address] [place] [address] Dr. Ambrosio Ramirez Urea nitrogen/Creatinine [Mass ratio] 16.7 mg/mg Normal [facility] Comment on above: Performed By: #### A 1C #### [facility] [address] [place], [place] [address] Dr. Ambrosio Ramirez TSHon 03-12-2022 TSH 1.934 uIU/mL Normal 0.358-3.740 [facility] Comment on above: Performed By: #### A 1C #### [facility] [address] [place], [place] [address] Dr. Ambrosio Ramirez XR TSPINE 3 VIEWSon [...] GEORGE CATALAN Date: 2022-03-12 17:07 Normal [facility] Covid-19 PCR (CVDTB)on SARS-CoV-2 (COVID-19) RNA JAYY+probe Ql (Unsp spec) Not detected Normal NOT DETECTED [facility] Comment on above: Result Comment: When [...] for this test is supported by the Assistant Manager Pt of Health and Human Service's declaration that [...] used). Performed By: #### C VDTBH #### [facility] [address] [address] [address] Ambrosio Ramirez INFLUENZA A AND B AGon 01-27 INFLUENZA A AG Negative Normal NEGATIVE SEE COMMENT [facility] Comment on above: Performed By: #### I NFLUAB #### [facility] [address] [place] [address] Dr. Ambrosio Ramirez INFLUENZA B AG Negative Normal NEGATIVE SEE COMMENT [facility] Comment on above: Performed By: #### I NFLUAB #### [facility] [address] [address] [address] Ambrosio Ramirez INTERNAL CONTROLS Within Normal Limits Normal Wi thin Normal Limits [facility] Comment on above: Performed By: #### I NFLUAB #### [facility] [address] [place] [address] Dr. Ambrosio Ramirez XR CHEST 2 Von [...] GEORGE ROWE Date: 2022-01-27 14:42 Normal [facility] RPR QUANTon 08-26-2021 Rapid Plasma Reagin, Quant Non-Reactive Normal NonRea<1:1 [facility] Comment on above: Result Comment: Plea se Note: This test does not meet current guidelines for screening and diagnosis of syphilis. This test is intended for following treatment response in patients being treated for syphilis infection. To screen for syphilis infection, a reflex cascade that includes both RPR and a treponema-specific assay should be utilized, such as Treponema pallidum (Syphilis) Screening [place] (011491) or Rapid Plasma Reagin (RPR) Test With Reflex to Quantitative RPR and Confirmatory Treponema pallidum Antibodies (614131). Performed By: #### R PRQ #### [facility] [address] [place] [address] Dr. Ambrosio Ramirez HEP B SURFACE ANTIGEN SCREEN on 08-24-2021 HBsAg Screen Negative Normal Negative [facility] Comment on above: Performed By: #### H BSANS #### [facility] [address] [place] [address] Dr. Ambrosio Ramirez HEPATITIS C ANTIBODYon 08-24 Hep C Virus Ab <0.1 Normal 0.0-0.9 [facility] Comment on above: Result Comment: Nega tive: [...] Hepatitis C Virus (HCV) RNA, Diagnosis, JAYY (203429) and Hepatitis C Virus (HCV) Antibody with reflex to Quantitative Real-time PCR ([id number]). Performed By: #### H CV #### [facility] [address] [place] [address] Dr. Ambrosio Ramirez INSULINon 08-23-2021 Insulin 5.0 uIU/mL Normal 2.6-24.9 [facility] Comment on above: Performed By: #### A 1C #### [facility] [address] [place] [address] Dr. Ambrosio Ramirez OCC BLD IMMUNO SCREENon OCCULT BLOOD Negative Normal NEGATIVE [facility] Comment on above: Performed By: #### O BSCRN #### [facility] [address] [place] [address] Dr. Ambrosio Ramirez CBC AUTO DIFFon 08-22-2021 BASO # 0.1 103/ul Normal 0.0-0.1 [facility] Comment on above: Performed By: #### O BSCRN #### [facility] [address] [place] [address] Dr. Ambrosio Ramirez Basophils/100 WBC (Bld) 1.0 % Normal 0.2-2.0 [facility] Comment on above: Performed By: #### O BSCRN #### [facility] [address] [place] [address] Dr. Ambrosio Ramirez EO # 0.1 103/ul Normal 0.0-0.7 [facility] Comment on above: Performed By: #### O BSCRN #### [facility] [address] [place] [address] Dr. Ambrosio Ramirez Eosinophils/100 WBC (Bld) 1.8 % Normal 0.9-7.0 [facility] Comment on above: Performed By: #### O BSCRN #### [facility] [address] [place] [address] Dr. Ambrosio Ramirez Erythrocyte distribution width (RBC) [Ratio] 11.9 % Normal 11.0-15.0 [facility] Comment on above: Performed By: #### O BSCRN #### [facility] [address] [place] [address] Dr. Ambrosio Ramirez Hematocrit (Bld) [Volume fraction] 48.6 % Critically high 36.0-48.0 [facility] Comment on above: Performed By: #### O BSCRN #### [facility] [address] [place] [address] Dr. Ambrosio Ramirez Hemoglobin (Bld) [Mass/Vol] 16.3 g/dL Critically high 12.0-16.0 [facility] Comment on above: Performed By: #### O BSCRN #### [facility] [address] [place] [address] Dr. Ambrosio Ramirez IG # 0.03 10e3/ul Normal 0.00-0.03 [facility] Comment on above: Performed By: #### O BSCRN #### [facility] [address] [place] [address] Dr. Ambrosio Ramirez IG % 0.6 % Critically high 0.0-0.5 [facility] Comment on above: Performed By: #### O BSCRN #### [facility] [address] [place] [address] Dr. Ambrosio Ramirez LYMPH # 2.4 103/ul Normal 1.2-3.8 [facility] Comment on above: Performed By: #### O BSCRN #### [facility] [address] [place] [address] Dr. Ambrosio Ramirez Lymphocytes/100 WBC (Bld) 46.9 % Normal 20.5-60.0 [facility] Comment on above: Performed By: #### O BSCRN #### [facility] [address] [place] [address] Dr. Ambrosio Ramirez MANUAL DIFF REQ NO Normal [facility] Comment on above: Performed By: #### O BSCRN #### [facility] [address] [place] [address] Dr. Ambrosio Ramirez MCH (RBC) [Entitic mass] 34.9 pg Critically high 26.7-34.0 [facility] Comment on above: Performed By: #### O BSCRN #### [facility] [address] [place] [address] Dr. Ambrosio Ramirez MCHC (RBC) [Mass/Vol] 33.5 g/dL Normal 29.9-35.2 [facility] Comment on above: Performed By: #### O BSCRN #### [facility] [address] [place] [address] Dr. Ambrosio Ramirez MCV (RBC) [Entitic vol] 104.1 fL Critically high 81.0-99.0 [facility] Comment on above: Performed By: #### O BSCRN #### [facility] [address] [place] [address] Dr. Ambrosio Ramirez MONO # 0.4 103/ul Normal 0.3-0.8 [facility] Comment on above: Performed By: #### O BSCRN #### [facility] [address] [place] [address] Dr. Ambrosio Ramirez Monocytes/100 WBC (Bld) 8.2 % Normal 1.7-12.0 [facility] Comment on above: Performed By: #### O BSCRN #### [facility] [address] [place] [address] Dr. Ambrosio Ramirez NEUT # 2.1 103/ul Normal 1.4-6.5 [facility] Comment on above: Performed By: #### O BSCRN #### [facility] [address] [place] [address] Dr. Amborsio Ramirez Neutrophils/100 WBC (Bld) 41.5 % Critically low 43.0-75.0 [facility] Comment on above: Performed By: #### O BSCRN #### [facility] [address] [place] [address] Dr. Ambrosio Ramirez Platelet mean volume (Bld) [Entitic vol] 9.3 fL Critically low 9.5-13.5 [facility] Comment on above: Performed By: #### O BSCRN #### [facility] [address] [place] [address] Dr. Ambrosio Ramirez PLT 210 103/ul Normal 150-450 [facility] Comment on above: Performed By: #### O BSCRN #### [facility] [address] [place] [address] Dr. Ambrosio Ramirez RBC 4.67 106/ul Normal 4.20-5.40 [facility] Comment on above: Performed By: #### O BSCRN #### [facility] [address] [place] [address] Dr. Ambrosio Ramirez WBC 5.0 103/ul Normal 4.0-11.0 [facility] Comment on above: Performed By: #### O BSCRN #### [facility] [address] [place] [address] Dr. Ambrosio Ramirez FREE THYROXINE INDEX T7on -2021 FTI 2.72 Normal 1.30-4.50 [facility] Comment on above: Performed By: #### O BSCRN #### [facility] [address] [place] [address] Dr. Ambrosio Ramirez T3U 32.0 % Normal 30.0-39.0 [facility] Comment on above: Performed By: #### O BSCRN #### [facility] [address] [place] [address] Dr. Ambrosio Ramirez T4 [Mass/Vol] 8.50 ug/dL Normal 4.80-13.90 [facility] Comment on above: Performed By: #### O BSCRN #### [facility] [address] [place] [address] Dr. Ambrosio Ramirez GLYCOHEMOGLOBIN A1Con 2021 ADA RECOMMENDATION SEE BELOW Normal [facility] Comment on above: Result Comment: ADA RECOMMENDED LIMIT 4.0 - 6.0 ADA THERAPEUTIC TARGET < 7.0 ACTION SUGGESTED > 7.0 Performed By: #### A 1C #### [facility] [address] [place] [address] Dr. Ambrosio Ramirez Glucose [Mass/Vol] 108 mg/dL Normal [facility] Comment on above: Performed By: #### A 1C #### [facility] [address] [place] [address] Dr. Ambrosio Ramirez HbA1c (Bld) [Mass fraction] 5.4 % Normal 4.5-6.2 [facility] Comment on above: Performed By: #### A 1C #### [facility] [address] [place] [address] Dr. Ambrosio Ramirez HIV 1/2 RAPID (EXPOSURE ONLY )on 08-22-2021 HIV AB Negative Normal [facility] Comment on above: Performed By: #### A 1C #### [facility] [address] [place] [address] Dr. Ambrosio Ramirez HIV AG Negative Normal [facility] Comment on above: Performed By: #### A 1C #### [facility] [address] [address] [address] Ambrosio Ramirez INTERNAL CONTROLS Within Normal Limits Normal Wi thin Normal Limits [facility] Comment on above: Performed By: #### A 1C #### [facility] [address] [place] [address] Dr. Ambrosio Ramirez RAPID HIV INFO SEE BELOW Normal [facility] Comment on above: Result Comment: This test is used for the initial screening of the exposure source. Confirmation of all results will be obtained through reference lab testing. Performed By: #### A 1C #### [facility] [address] [place] [address] Dr. Ambrosio Ramirez IRONon 08-22-2021 Iron [Mass/Vol] 137.0 ug/dL Normal 50.0-170.0 [facility] Comment on above: Performed By: #### I HAMLET #### [facility] [address] [address] [address] Ambrosio Ramirez LIPID PROFILEon 08-22-2021 CHOL-HDL RATIO NORM SEE BELOW Normal [facility] Comment on above: Result Comment: 3.3 - 4.4 LOW RISK 4.4 - 7.1 AVERAGE RISK 7.1 - 11.0 MODERATE RISK >11.0 HIGH RISK Performed By: #### O BSCRN #### [facility] [address] [address] [address] Ambrosio Ramirez Cholesterol [Mass/Vol] 251 mg/dL Critically high <=200 [facility] Comment on above: Performed By: #### O BSCRN #### [facility] [address] [address] [address] Ambrosio Ramirez Cholesterol in HDL [Mass/Vol] 67 mg/dL Critically high 40-60 [facility] Comment on above: Performed By: #### O BSCRN #### [facility] [address] [address] [address] Ambrosio Ramirez Cholesterol in LDL [Mass/Vol] 154.8 mg/dL Normal [facility] Comment on above: Performed By: #### O BSCRN #### [facility] [address] [address] [address] Ambrosio Ramirez Cholesterol.total/Cho lesterol in HDL [Mass ratio] 3.7 {ratio} Normal [facility] Comment on above: Performed By: #### O BSCRN #### [facility] [address] [address] [address] Ambrosio Ramirez HDL NORMAL > or = 60 mg/dl - LOW CARDIOVASCULAR RISK <40 mg/dl - HIGH CARDIOVASCULAR RISK Normal [facility] Comment on above: Performed By: #### O BSCRN #### [facility] [address] [address] [address] Ambrosio Ramirez LDL CALC NORMAL SEE BELOW Normal [facility] Comment on above: Result Comment: <100 mg/dl OPTIMAL 100 - 129 mg/dl NEAR OR ABOVE OPTIMAL 130 - 159 mg/dl BORDERLINE HIGH 160 - 189 mg/dl HIGH >190 mg/dl VERY HIGH Performed By: #### O BSCRN #### [facility] [address] [address] [address] Ambrosio Ramirez Triglyceride [Mass/Vol] 146 mg/dL Normal <=150 [facility] Comment on above: Performed By: #### O BSCRN #### [facility] [address] [address] [address] Ambrosio Ramirez VLDL CALC 29.2 mg/dL Normal [facility] Comment on above: Performed By: #### O BSCRN #### [facility] [address] [address] [address] Ambrosio Ramirez PROF 14(COMP METB)on 022 Albumin [Mass/Vol] 4.3 g/dL Normal 3.4-5.0 [facility] Comment on above: Performed By: #### O BSCRN #### [facility] [address] [place] [address] Dr. Ambrosio Ramirez Albumin/Globulin [Mass ratio] 1.2 {ratio} Normal [facility] Comment on above: Performed By: #### O BSCRN #### [facility] [address] [place] [address] Dr. Ambrosio Ramirez ALP [Catalytic activity/Vol] 57 U/L Normal 46-116 [facility] Comment on above: Performed By: #### O BSCRN #### [facility] [address] [place] [address] Dr. Ambrsoio Ramirez ALT [Catalytic activity/Vol] 56 U/L Normal 14-59 [facility] Comment on above: Performed By: #### O BSCRN #### [facility] [address] [place] [address] Dr. Ambrosio Ramirez Anion gap [Moles/Vol] 11.5 mmol/L Normal [facility] Comment on above: Performed By: #### O BSCRN #### [facility] [address] [address] [address] Ambrosio Ramirez AST [Catalytic activity/Vol] 75 U/L Critically high 15-37 [facility] Comment on above: Performed By: #### O BSCRN #### [facility] [address] [place] [address] Dr. Ambrosio Ramirez Bilirubin [Mass/Vol] 0.4 mg/dL Normal 0.2-1.0 [facility] Comment on above: Performed By: #### O BSCRN #### [facility] [address] [place] [address] Dr. Ambrosio Ramirez Calcium [Mass/Vol] 8.7 mg/dL Normal 8.5-10.1 [facility] Comment on above: Performed By: #### O BSCRN #### [facility] [address] [place] [address] Dr. Ambrosio Ramirez Chloride [Moles/Vol] 105 mmol/L Normal 98-107 [facility] Comment on above: Performed By: #### O BSCRN #### [facility] [address] [place] [address] Dr. Ambrosio Ramirez CO2 [Moles/Vol] 30.3 mmol/L Normal 21.0-32.0 [facility] Comment on above: Performed By: #### O BSCRN #### [facility] [address] [place] [address] Dr. Ambrosio Ramirez Creatinine [Mass/Vol] 0.67 mg/dL Normal 0.55-1.02 [facility] Comment on above: Performed By: #### O BSCRN #### [facility] [address] [place] [address] Dr. Ambrosio Ramirez EGFR-AF EMIRATI >60 Normal >=60 [facility] Comment on above: Performed By: #### O BSCRN #### [facility] [address] [place] [address] Dr. Ambrosio Ramirez EGFR-NON AF EMIRATI >60 Normal >=60 [facility] Comment on above: Performed By: #### O BSCRN #### [facility] [address] [place] [address] Dr. Ambrosio Ramirez Globulin (S) [Mass/Vol] 3.7 g/dL Normal [facility] Comment on above: Performed By: #### O BSCRN #### [facility] [address] [address] [address] Ambrosio Ramirez Glucose [Mass/Vol] 93 mg/dL Normal 74-106 [facility] Comment on above: Performed By: #### O BSCRN #### [facility] [address] [place] [address] Dr. Ambrosio Ramirez Potassium [Moles/Vol] 4.8 mmol/L Normal 3.5-5.1 [facility] Comment on above: Performed By: #### O BSCRN #### [facility] [address] [place] [address] Dr. Ambrosio Ramirez Protein [Mass/Vol] 8.0 g/dL Normal 6.4-8.2 [facility] Comment on above: Performed By: #### O BSCRN #### [facility] [address] [place] [address] Dr. Ambrosio Ramirez Sodium [Moles/Vol] 142 mmol/L Normal 136-145 [facility] Comment on above: Performed By: #### O BSCRN #### [facility] [address] [place] [address] Dr. Ambrosio Ramirez Urea nitrogen [Mass/Vol] 8.0 mg/dL Normal 7.0-18.0 [facility] Comment on above: Performed By: #### O BSCRN #### [facility] [address] [place] [address] Dr. Ambrosio Ramirez Urea nitrogen/Creatinine [Mass ratio] 11.9 mg/mg Normal [facility] Comment on above: Performed By: #### O BSCRN #### [facility] [address] [place] [address] Dr. Ambrosio Ramirez TSHon 08-22-2021 TSH 2.117 uIU/mL Normal 0.358-3.740 [facility] Comment on above: Performed By: #### O BSCRN #### [facility] [address] [address] [address] Ambrosio Ramirez XR CSPINE MIN 4 [...] Cervical fusion hardware with no mechanical failure [id number] degenerative changes of the cervical thoracic spine Electronically authenticated by: GEORGE ROWE Date: 2021-08-22 21:07 Normal [facility] Vital Signs Date Time Vital Sign Value Performing Clinician Facility 05-09-2022 10:14-0400 Diastolic blood pressure 85 mm[Hg] [employer] ATTENDANT-C Ama Edwards Work Phone: [facility] 05-09-2022 10:14-0400 Heart rate 99 /min [employer] ATTEND[employer]-C Ama Edwards Work Phone: [facility] 05-09-2022 10:14-0400 Respiratory rate 18 /min [employer] ATTENDANT-C Ama Edwards Work Phone: [facility] 05-09-2022 10:14-0400 SaO2% (BldA) [Mass fraction] 99 % [employer] ATTENDANT-C Ama Edwards Work Phone: [facility] 05-09-2022 10:14-0400 Systolic blood pressure 124 mm[Hg] ACTIV[employer] ATTENDANT-C Ama Edwards Work Phone: [facility] 05-09-2022 08:04-0400 Body height 180.34 cm ACTIV[employer] ATTENDANT-C Ama Edwards Work Phone: [facility] 05-09-2022 08:04-0400 Body weight 58.96 kg [employer] ATTENDANT-C Ama Edwards Work Phone: [facility] 05-01-2022 11:15-0500 Body height Imad Asaad Other [facility] Other 05-01-2022 11:15-0500 Body mass index (BMI) [Ratio] 18.13 kg/m2 Imad Asaad Other [facility] Other 05-01-2022 11:15-0500 Body weight 58.97 kg Imad Asaad Other [facility] Other 05-01-2022 11:15-0500 Diastolic blood pressure 102 mm[Hg] Imad Asaad Other [facility] Other 05-01-2022 11:15-0500 Respiratory rate 16 /min Imad Asaad Other [facility] Other 05-01-2022 11:15-0500 Systolic blood pressure 158 mm[Hg] Imad Asaad Other [facility] Other Encounters Encounter Date Encounter Type Care [...] Facility:[facility] Start: 11-10-2022 End: 11-10-2022 ambulatory Manuel Reynaga MD Facility:[facility] Start: 05-09-2022 End: 05-09-2022 ambulatory Ama Edwards Facility:[facility] Start: 05-09-2022 End: 05-09-2022 Admission to same day surgery center [employer] ATTENDANT-C Ama Edwards Work Phone: [facility] Work Phone: Start: 05-09-2022 End: 05-09-2022 ambulatory [employer] ATTENDANT-C Ama Edwards Work Phone: [facility] Work Phone: Start: 05-02-2022 End: 05-02-2022 ambulatory Imad Asaad Other [facility] Other Start: 05-02-2022 Telephone encounter Imad Asaad [facility] Start: 05-01-2022 End: 05-01-2022 ambulatory Imad Asaad Other [facility] Other Start: 05-01-2022 Office consultation new/estab patient [...] Date Care Activity Detail Author Start: 05-09-2022 [facility] Patient Education Colon Polyps H emorrhoids (DC) Diverticulosis (DC) Gastritis (DC) [facility] Work Phone: Payers Date Payer Category Payer Self-pay 2022 Unknown 1960 Unknown [id number] 2.16.84 [id number] 1960 Unknown [id number] 2.16.84 [id number] 1960 Unknown [id number] 2.16.84 [id number] 1962 Unknown [id number] 2.16.84 0.1.156211.3.579.2.593 1962 Unknown [id number] 2.16.84 0.1.970541.3.579.2.593 1962 Unknown [id number] 2.16.84 0.1.948156.3.579.2.593 1962 Unknown [id number] 2.16.84 0.1.891258.3.579.2.593 1962 Unknown [id number] 2.16. 840.1.512478.3.579.2.196 1962 Unknown [id number] 2.16. 840.1.139908.3.579.2.196 1962 Unknown [id number] 2.16. 840.1.384472.3.579.2.196 1962 Unknown [id number] 2.16. 840.1.130363.3.579.2.196 1962 Unknown [id number] 2.16. 840.1.542076.3.579.2.196 1962 Unknown [id number] 2.16. 840.1.648800.3.579.2.196 1962 Unknown [id number] 2.16. 840.1.104927.3.579.2.196 1957 Medicare [id number] 21 [id number] 1957 Unknown [id number] 1959 Unknown [id number] 1957 Unknown [id number] Unknown [id number] 2.16.8 [id number] Social History Date Type Detail Facility Start: 05-09-2022 Tobacco smoking status NHIS Smoker (finding) [facility] Start: 1960 Sex Assigned At Female F [facility] Sex Assigned At Sex Assigned At Bir th [facility] Other Goals Date Patient Goal Desired Activity /State Procedure note 05-09-2022 Note Date & Type Note Facility 05-09-2022 Procedure note [facility] Evaluation note 05-01-2022 Note Date & Type Note Facility 05-01-2022 Evaluation note Encounter Date Diagnosis Assessment Notes Apr, Dysphagia (ICD-10 - R13.10) Apr, Weight loss (ICD-10 - R63.4) Apr, Colon cancer screening (ICD-10 - Z12.11) [facility] Other Evaluation note Note Date & Type Note Facility Evaluation note No assessment information availa [facility] Work Phone: Evaluation note Note Date & Type Note Facility Evaluation note No Information [facility] Other History general Narrative - Reported Note Date & Type Note Facility History general Narrative - Reported Type Medical History Anxiety/Depression Surgical History Neck surgery Surgical History Tonsillectomy Hospitalization History See above [facility] Other Hospital Discharge instructions Note Date & [...] NOT operate machinery such as power tools, [id number] mowers, snow blowers, sewing machines, etc. for [...] -Follow up with PCP. - Office number [phone]. [facility] Work Phone: Chief Complaint and Reason [...] content) [facility] DIARRHEA, WEIGHT LOSS AND DYSPHAGIAClinical INFORMATION SOURCE (unrecogn ized section and content) DATE CREATED AUTHOR 05/20/2022 [facility] DATE CREATED AUTHOR AUTHOR'S ORGANIZ ATION 07/02/2022 [facility] DATE CREATED AUTHOR AUTHOR'S ORGANIZ ATION 10/06/2023 [facility] FOR RECORDS PERTAINING TO PATIENTS WHO [...] BE BASED ON THE PRIMARY CLINICAL RECORDS. [employer] provides no warranty or guarantee of the accuracy or completeness of information in this document.
--- NOTE | 2023-10-14 15:06 | CM.DCFOLLOWU ---
1st attempt 10/14/23
--- NOTE | 2023-10-15 14:21 | CM.DCFOLLOWU ---
2nd attempt 10/15/23
--- NOTE | 2023-10-19 15:17 | CM.DCFOLLOWU ---
3rd attempt 10/19/23
== END 2023-10-11 12:35 | disposition home or self-care (01) ==
LOC: MS 18:47 → SURGOUT 10-14 11:56 → MS 10-14 11:56
PROVIDERS: Anesthesiology; Admitting Provider Family Medicine; PCP Nurse Practitioner Family; Visit Provider Orthopaedic Surgery Orthopaedic Surgery of the Spine
PROC: (CPT 20936; principal; 2023-10-09 09:15)
DX: M51.16 Intervertebral disc disorders with radiculopathy, lumbar region (principal); M48.061 Spinal stenosis, lumbar region without neurogenic claudication; M43.16 Spondylolisthesis, lumbar region; M79.7 Fibromyalgia; M54.9 Dorsalgia, unspecified; I10 Essential (primary) hypertension; D62 Acute posthemorrhagic anemia; F41.1 Generalized anxiety disorder; K21.9 Gastro-esophageal reflux disease without esophagitis; R06.2 Wheezing; F33.42 Major depressive disorder, recurrent, in full remission; M79.605 Pain in left leg; M79.604 Pain in right leg; F17.210 Nicotine dependence, cigarettes, uncomplicated; Z79.899 Other long term (current) drug therapy
CPT/HCPCS: 20936; 22612; 22840; 63047; 63048; 36415; 76000; 80048; 80307; 85014; 85018; 93970; 94667; 94668; 95861; 95938; 95940; 96365; 96366; 96375; 96376; 97161; 97165; 97530; C1713; G0378; J0690; J1100; J1170; J1290; J1885; J2250; J2270; J2371; J2405; J2704; J2710; J3010; J3370

== ENCOUNTER 2023-10-22 14:53 | Outpatient (OUT) | payer MEDICARE, OTHER, MEDICAID, SELFPAY ==
--- OUTSIDE RECORDS SUMMARY | 2023-10-22 15:13 | XMS_ITS | CCD ---
Author Organization [facility] Care Team Providers Care General Practitioner Name Role Phone MD Nesha Bryant Attending [...] 30 days Apr, Active polyethylene glycol 3350 164257 mg / potassium chloride 2970 mg / sodium bicarbonate 6740 mg / sodium chloride 5860 mg / sodium sulfate 60511 mg powder for oral solution (2 sources) [...] Test Name Value Interpretation Reference Range Facility [facility] 05-09-2022 L Specimen: [id number] Received: 05/09/22 Status: EDUARD Zaragoza Num: [id number] Spec Type: Surgical Subm Dr: Nesha Bryant MD Tissues: A Gastric Biopsy (GASTRIC) B Esophagus Biopsy (DISTAL ESOPHAGUS) C Esophagus Biopsy (PROXIMAL ESOPHAGUS) D Colon Biopsy (CECAL POLYP) E Colon Biopsy (SIGMOID POLYP) F Colon Biopsy (RECTAL POLYPS X3) Procedures: /, Gross/Micro L4/6 Age/ Patient Sex Location Account Attending Physician Nancy Joyce 61/F [id number] Nesha Bryant MD SPEC NUM: [id number] RECD: 05/09/22 STATUS: EDUARD ZARAGOZA NUM: [id number] KATY: 05/09/22- SUBM DR: Nesha Bryant MD ENTERED: 05/09/22-[address] [facility] [address]: SPEC TYPE: Surgical DEPT: S ORDERED: [...] mucosal fold. - Negative for adenoma/dysplasia. Specimen: [id number] Received: 05/09/22 Status: EDUARD Nickbatsheva Num: [id number] Spec Type: Surgical Subm Dr: Nesha Bryant MD Tissues: A Gastric Biopsy (GASTRIC) B Esophagus Biopsy (DISTAL ESOPHAGUS) C Esophagus Biopsy (PROXIMAL ESOPHAGUS) D Colon Biopsy (CECAL POLYP) E Colon Biopsy (SIGMOID POLYP) F Colon Biopsy (RECTAL POLYPS X3) Procedures: HE/12, Gross/Micro L4/6 Patient: Nancy Joyce [id number] (Continued) Specimen: [id number] Received: 05/09/22 (Continued) Pathological Diagnosis (Continued) Signed (signature on file) Carin Oliveros MD 05/12/22 1130 Specimen: [id number] Received: 05/09/22 Status: EDUARD Zaragoza Num: [id number] Spec Type: Surgical Subm Dr: Nesha Bryant MD Tissues: A Gastric Biopsy (GASTRIC) B Esophagus Biopsy (DISTAL ESOPHAGUS) C Esophagus Biopsy (PROXIMAL ESOPHAGUS) D Colon Biopsy (CECAL POLYP) E Colon Biopsy (SIGMOID POLYP) F Colon Biopsy (RECTAL POLYPS X3) Procedures: ROSI/Barbara, Gross/Micro L4/6 Patient: Nancy Joyce [id number] (Continued) Specimen: [id number] Received: 05/09/22 (Continued) Pathological Diagnosis (Continued) E. [...] cassette labeled 1. (more content not included)... [facility] XR MODIFIED BARIUM SWALLOWon 03-25-2022 XR [...] DENNY RINCON Date: 2022-03-25 13:53 Normal [facility] INSULINon 03-13-2022 Insulin 3.9 uIU/mL Normal 2.6-24.9 [facility] Comment on above: Performed By: #### O BSCRN #### [facility] [address] [address] [address] Ambrosio Ramirez XR CSPINE MIN 4 [...] DENNY RINCON Date: 2022-03-13 08:09 Normal [facility] CBC AUTO DIFFon 03-12-2022 BASO # 0.0 103/ul Normal 0.0-0.1 [facility] Comment on above: Performed By: #### C BC #### [facility] [address] [address] [address] Ambrosio Ramirez Basophils/100 WBC (Bld) 0.7 % Normal 0.2-2.0 [facility] Comment on above: Performed By: #### C BC #### [facility] [address] [address] [address] Ambrosio Ramirez EO # 0.1 103/ul Normal 0.0-0.7 [facility] Comment on above: Performed By: #### C BC #### [facility] [address] [place] [address] Dr. Ambrosio Ramirez Eosinophils/100 WBC (Bld) 0.9 % Normal 0.9-7.0 [facility] Comment on above: Performed By: #### C BC #### [facility] [address] [place] [address] Dr. Ambrosio Ramirez Erythrocyte distribution width (RBC) [Ratio] 12.3 % Normal 11.0-15.0 [facility] Comment on above: Performed By: #### C BC #### [facility] [address] [place] [address] Dr. Ambrosio Ramirez Hematocrit (Bld) [Volume fraction] 46.0 % Normal 36.0-48.0 [facility] Comment on above: Performed By: #### C BC #### [facility] [address] [place] [address] Dr. Ambrosio Ramirez Hemoglobin (Bld) [Mass/Vol] 15.2 g/dL Normal 12.0-16.0 [facility] Comment on above: Performed By: #### C BC #### [facility] [address] [place] [address] Dr. Ambrosio Ramirez IG # 0.03 10e3/ul Normal 0.00-0.03 [facility] Comment on above: Performed By: #### C BC #### [facility] [address] [place] [address] Dr. Ambrosio Ramirez IG % 0.5 % Normal 0.0-0.5 [facility] Comment on above: Performed By: #### C BC #### [facility] [address] [place] [address] Dr. Ambrosio Ramirez LYMPH # 2.0 103/ul Normal 1.2-3.8 [facility] Comment on above: Performed By: #### C BC #### [facility] [address] [place] [address] Dr. Ambrosio Ramirez Lymphocytes/100 WBC (Bld) 35.0 % Normal 20.5-60.0 [facility] Comment on above: Performed By: #### C BC #### [facility] [address] [place] [address] Dr. Ambrosio Ramirez MANUAL DIFF REQ NO Normal [facility] Comment on above: Performed By: #### C BC #### [facility] [address] [place] [address] Dr. Ambrosio Ramirez MCH (RBC) [Entitic mass] 33.8 pg Normal 26.7-34.0 [facility] Comment on above: Performed By: #### C BC #### [facility] [address] [place] [address] Dr. Ambrosio Ramirez MCHC (RBC) [Mass/Vol] 33.0 g/dL Normal 29.9-35.2 [facility] Comment on above: Performed By: #### C BC #### [facility] [address] [place] [address] Dr. Ambrosio Ramirez MCV (RBC) [Entitic vol] 102.2 fL Critically high 81.0-99.0 [facility] Comment on above: Performed By: #### C BC #### [facility] [address] [place] [address] Dr. Ambrosio Ramirez MONO # 0.4 103/ul Normal 0.3-0.8 [facility] Comment on above: Performed By: #### C BC #### [facility] [address] [place] [address] Dr. Ambrosio Ramirez Monocytes/100 WBC (Bld) 7.2 % Normal 1.7-12.0 [facility] Comment on above: Performed By: #### C BC #### [facility] [address] [place] [address] Dr. Ambrosio Ramirez NEUT # 3.2 103/ul Normal 1.4-6.5 [facility] Comment on above: Performed By: #### C BC #### [facility] [address] [place] [address] Dr. Ambrosio Ramirez Neutrophils/100 WBC (Bld) 55.7 % Normal 43.0-75.0 [facility] Comment on above: Performed By: #### C BC #### [facility] [address] [place] [address] Dr. Ambrosio Ramirez Platelet mean volume (Bld) [Entitic vol] 9.1 fL Critically low 9.5-13.5 [facility] Comment on above: Performed By: #### C BC #### [facility] [address] [place] [address] Dr. Ambrosio Ramirez PLT 234 103/ul Normal 150-450 [facility] Comment on above: Performed By: #### C BC #### [facility] [address] [place] [address] Dr. Ambrosio Ramirez RBC 4.50 106/ul Normal 4.20-5.40 [facility] Comment on above: Performed By: #### C BC #### [facility] [address] [place] [address] Dr. Ambrosio Ramirez WBC 5.7 103/ul Normal 4.0-11.0 [facility] Comment on above: Performed By: #### C BC #### [facility] [address] [place] [address] Dr. Ambrosio Ramirez FREE THYROXINE INDEX T7on FTI 2.41 Normal 1.30-4.50 [facility] Comment on above: Performed By: #### A 1C #### [facility] [address] [place] [address] Dr. Ambrosio Ramirez T3U 33.0 % Normal 30.0-39.0 [facility] Comment on above: Performed By: #### A 1C #### [facility] [address] [place] [address] Dr. Ambrosio Ramirez T4 [Mass/Vol] 7.30 ug/dL Normal 4.80-13.90 [facility] Comment on above: Performed By: #### A 1C #### [facility] [address] [place] [address] Dr. Ambrosio Ramirez GLYCOHEMOGLOBIN A1Con 2022 ADA RECOMMENDATION SEE BELOW Normal [facility] Comment on above: Result Comment: ADA RECOMMENDED LIMIT 4.0 - 6.0 ADA THERAPEUTIC TARGET < 7.0 ACTION SUGGESTED > 7.0 Performed By: #### A 1C #### [facility] [address] [address] [address] Ambrosio aRmirez Glucose [Mass/Vol] 100 mg/dL Normal [facility] Comment on above: Performed By: #### A 1C #### [facility] [address] [place] [address] Dr. Ambrosio Ramirez HbA1c (Bld) [Mass fraction] 5.1 % Normal 4.5-6.2 [facility] Comment on above: Performed By: #### A 1C #### [facility] [address] [place] [address] Dr. Ambrosio Ramirez IRONon 03-12-2022 Iron [Mass/Vol] 148.0 ug/dL Normal 50.0-170.0 [facility] Comment on above: Performed By: #### O BSCRN #### [facility] [address] [place] [address] Dr. Ambrosio Ramirez LIPID PROFILEon 03-12-2022 CHOL-HDL RATIO NORM SEE BELOW Normal [facility] Comment on above: Result Comment: 3.3 - 4.4 LOW RISK 4.4 - 7.1 AVERAGE RISK 7.1 - 11.0 MODERATE RISK >11.0 HIGH RISK Performed By: #### A 1C #### [facility] [address] [place] [address] Dr. Ambrosio Ramirez Cholesterol [Mass/Vol] 234 mg/dL Critically high <=200 [facility] Comment on above: Performed By: #### A 1C #### [facility] [address] [place] [address] Dr. Ambrosio Ramirez Cholesterol in HDL [Mass/Vol] 71 mg/dL Critically high 40-60 [facility] Comment on above: Performed By: #### A 1C #### [facility] [address] [place] [address] Dr. Ambrosio Ramirez Cholesterol in LDL [Mass/Vol] 132.4 mg/dL Normal [facility] Comment on above: Performed By: #### A 1C #### [facility] [address] [place] [address] Dr. Ambrosio Ramirez Cholesterol.total/Cho lesterol in HDL [Mass ratio] 3.3 {ratio} Normal [facility] Comment on above: Performed By: #### A 1C #### [facility] [address] [address] [address] Ambrosio Ramirez HDL NORMAL > or = 60 mg/dl - LOW CARDIOVASCULAR RISK <40 mg/dl - HIGH CARDIOVASCULAR RISK Normal [facility] Comment on above: Performed By: #### A 1C #### [facility] [address] [address] [address] Ambrosio Ramirez LDL CALC NORMAL SEE BELOW Normal [facility] Comment on above: Result Comment: <100 mg/dl OPTIMAL 100 - 129 mg/dl NEAR OR ABOVE OPTIMAL 130 - 159 mg/dl BORDERLINE HIGH 160 - 189 mg/dl HIGH >190 mg/dl VERY HIGH Performed By: #### A 1C #### [facility] [address] [address] [address] Ambrosio Ramirez Triglyceride [Mass/Vol] 153 mg/dL Critically high <=150 [facility] Comment on above: Performed By: #### A 1C #### [facility] [address] [address] [address] Ambrosio Ramirez VLDL CALC 30.6 mg/dL Normal [facility] Comment on above: Performed By: #### A 1C #### [facility] [address] [address] [address] Ambrosio Ramirez PROF 14(COMP METB)on 023 Albumin [Mass/Vol] 4.2 g/dL Normal 3.4-5.0 [facility] Comment on above: Performed By: #### A 1C #### [facility] [address] [address] [address] Ambrosio Ramirez Albumin/Globulin [Mass ratio] 1.3 {ratio} Normal [facility] Comment on above: Performed By: #### A 1C #### [facility] [address] [address] [address] Ambrosio Ramirez ALP [Catalytic activity/Vol] 62 U/L Normal 46-116 [facility] Comment on above: Performed By: #### A 1C #### [facility] [address] [address] [address] Ambrosio Ramirez ALT [Catalytic activity/Vol] 27 U/L Normal 14-59 [facility] Comment on above: Performed By: #### A 1C #### [facility] [address] [address] [address] Ambrosio Ramirez Anion gap [Moles/Vol] 12.8 mmol/L Normal [facility] Comment on above: Performed By: #### A 1C #### [facility] [address] [address] [address] Ambrosio Ramirez AST [Catalytic activity/Vol] 39 U/L Critically high 15-37 [facility] Comment on above: Performed By: #### A 1C #### [facility] [address] [place] [address] Dr. Ambrosio Ramirez Bilirubin [Mass/Vol] 0.4 mg/dL Normal 0.2-1.0 [facility] Comment on above: Performed By: #### A 1C #### [facility] [address] [place] [address] Dr. Ambrosio Ramirez Calcium [Mass/Vol] 9.1 mg/dL Normal 8.5-10.1 [facility] Comment on above: Performed By: #### A 1C #### [facility] [address] [place] [address] Dr. Ambrosio Ramirez Chloride [Moles/Vol] 103 mmol/L Normal 98-107 [facility] Comment on above: Performed By: #### A 1C #### [facility] [address] [address] [address] Ambrosio Ramirez CO2 [Moles/Vol] 30.5 mmol/L Normal 21.0-32.0 [facility] Comment on above: Performed By: #### A 1C #### [facility] [address] [place] [address] Dr. Ambrosio Ramirez Creatinine [Mass/Vol] 0.54 mg/dL Critically low 0.55-1.02 [facility] Comment on above: Performed By: #### A 1C #### [facility] [address] [address] [address] Ambrosio Ramirez EGFR-AF RWANDAN >60 Normal >=60 [facility] Comment on above: Performed By: #### A 1C #### [facility] [address] [address] [address] Ambrosio Ramirez EGFR-NON AF RWANDAN >60 Normal >=60 [facility] Comment on above: Performed By: #### A 1C #### [facility] [address] [address] [address] Ambrosio Ramirez Globulin (S) [Mass/Vol] 3.3 g/dL Normal [facility] Comment on above: Performed By: #### A 1C #### [facility] [address] [place] [address] Dr. Ambrosio Ramirez Glucose [Mass/Vol] 88 mg/dL Normal 74-106 [facility] Comment on above: Performed By: #### A 1C #### [facility] [address] [place] [address] Dr. Ambrosio Ramirez Potassium [Moles/Vol] 4.3 mmol/L Normal 3.5-5.1 [facility] Comment on above: Performed By: #### A 1C #### [facility] [address] [place] [address] Dr. Ambrosio Ramirez Protein [Mass/Vol] 7.5 g/dL Normal 6.4-8.2 [facility] Comment on above: Performed By: #### A 1C #### [facility] [address] [place] [address] Dr. Ambrosio Ramirez Sodium [Moles/Vol] 142 mmol/L Normal 136-145 [facility] Comment on above: Performed By: #### A 1C #### [facility] [address] [place] [address] Dr. Ambrosio Ramirez Urea nitrogen [Mass/Vol] 9.0 mg/dL Normal 7.0-18.0 [facility] Comment on above: Performed By: #### A 1C #### [facility] [address] [place] [address] Dr. Ambrosio Ramirez Urea nitrogen/Creatinine [Mass ratio] 16.7 mg/mg Normal [facility] Comment on above: Performed By: #### A 1C #### [facility] [address], [place] [address] Dr. Ambrosio Ramirez TSHon 03-12-2022 TSH 1.934 uIU/mL Normal 0.358-3.740 [facility] Comment on above: Performed By: #### A 1C #### [facility] [address] [place], [place] [address] Dr. Ambrosio Ramirez XR TSPINE 3 VIEWSon [...] GEORGE CATALAN Date: 2022-03-12 17:07 Normal [facility] Covid-19 PCR (CVDTB)on SARS-CoV-2 (COVID-19) RNA JAYY+probe Ql (Unsp spec) Not detected Normal NOT DETECTED [facility] Comment on above: Result Comment: When [...] for this test is supported by the Rn Diabetes of Health and Human Service's declaration that [...] used). Performed By: #### C VDTBH #### [facility] [address] [address] [address] Ambrosio Ramirez INFLUENZA A AND B AGon 01-27 INFLUENZA A AG Negative Normal NEGATIVE SEE COMMENT [facility] Comment on above: Performed By: #### I NFLUAB #### [facility] [address] [place] [address] Dr. Ambrosio Ramirez INFLUENZA B AG Negative Normal NEGATIVE SEE COMMENT [facility] Comment on above: Performed By: #### I NFLUAB #### [facility] [address] [address] [address] Ambrosio Ramirez INTERNAL CONTROLS Within Normal Limits Normal Wi thin Normal Limits [facility] Comment on above: Performed By: #### I NFLUAB #### [facility] [address] [place] [address] Dr. Ambrosio Ramirez XR CHEST 2 Von [...] GEORGE ROWE Date: 2022-01-27 14:42 Normal [facility] RPR QUANTon 08-26-2021 Rapid Plasma Reagin, Quant Non-Reactive Normal NonRea<1:1 [facility] Comment on above: Result Comment: Plea se Note: This test does not meet current guidelines for screening and diagnosis of syphilis. This test is intended for following treatment response in patients being treated for syphilis infection. To screen for syphilis infection, a reflex cascade that includes both RPR and a treponema-specific assay should be utilized, such as Treponema pallidum (Syphilis) Screening [place] (065489) or Rapid Plasma Reagin (RPR) Test With Reflex to Quantitative RPR and Confirmatory Treponema pallidum Antibodies (638340). Performed By: #### R PRQ #### [facility] [address] [place] [address] Dr. Ambrosio Ramirez HEP B SURFACE ANTIGEN SCREEN on 08-24-2021 HBsAg Screen Negative Normal Negative [facility] Comment on above: Performed By: #### H BSANS #### [facility] [address] [place] [address] Dr. Ambrosio Ramirez HEPATITIS C ANTIBODYon 08-24 Hep C Virus Ab <0.1 Normal 0.0-0.9 [facility] Comment on above: Result Comment: Nega tive: [...] Hepatitis C Virus (HCV) RNA, Diagnosis, JAYY (510550) and Hepatitis C Virus (HCV) Antibody with reflex to Quantitative Real-time PCR (162337). Performed By: #### H CV #### [facility] [address] [place] [address] Dr. Ambrosio Ramirez INSULINon 08-23-2021 Insulin 5.0 uIU/mL Normal 2.6-24.9 [facility] Comment on above: Performed By: #### A 1C #### [facility] [address] [place] [address] Dr. Ambrosio Ramirez OCC BLD IMMUNO SCREENon OCCULT BLOOD Negative Normal NEGATIVE [facility] Comment on above: Performed By: #### O BSCRN #### [facility] [address] [place] [address] Dr. Ambrosio Ramirez CBC AUTO DIFFon 08-22-2021 BASO # 0.1 103/ul Normal 0.0-0.1 [facility] Comment on above: Performed By: #### O BSCRN #### [facility] [address] [place] [address] Dr. Ambrosio Ramirez Basophils/100 WBC (Bld) 1.0 % Normal 0.2-2.0 [facility] Comment on above: Performed By: #### O BSCRN #### [facility] [address] [place] [address] Dr. Ambrosio Ramirez EO # 0.1 103/ul Normal 0.0-0.7 [facility] Comment on above: Performed By: #### O BSCRN #### [facility] [address] [place] [address] Dr. Ambrosio Ramirez Eosinophils/100 WBC (Bld) 1.8 % Normal 0.9-7.0 [facility] Comment on above: Performed By: #### O BSCRN #### [facility] [address] [place] [address] Dr. Ambrosio Ramirez Erythrocyte distribution width (RBC) [Ratio] 11.9 % Normal 11.0-15.0 [facility] Comment on above: Performed By: #### O BSCRN #### [facility] [address] [place] [address] Dr. Ambrosio Ramirez Hematocrit (Bld) [Volume fraction] 48.6 % Critically high 36.0-48.0 [facility] Comment on above: Performed By: #### O BSCRN #### [facility] [address] [place] [address] Dr. Ambrosio Ramirez Hemoglobin (Bld) [Mass/Vol] 16.3 g/dL Critically high 12.0-16.0 [facility] Comment on above: Performed By: #### O BSCRN #### [facility] [address] [place] [address] Dr. Ambrosio Ramirez IG # 0.03 10e3/ul Normal 0.00-0.03 [facility] Comment on above: Performed By: #### O BSCRN #### [facility] [address] [place] [address] Dr. Ambrosio Ramirez IG % 0.6 % Critically high 0.0-0.5 [facility] Comment on above: Performed By: #### O BSCRN #### [facility] [address] [place] [address] Dr. Ambrosio Ramirez LYMPH # 2.4 103/ul Normal 1.2-3.8 [facility] Comment on above: Performed By: #### O BSCRN #### [facility] [address] [place] [address] Dr. Ambrosio Ramirez Lymphocytes/100 WBC (Bld) 46.9 % Normal 20.5-60.0 [facility] Comment on above: Performed By: #### O BSCRN #### [facility] [address] [place] [address] Dr. Ambrosio Ramirez MANUAL DIFF REQ NO Normal [facility] Comment on above: Performed By: #### O BSCRN #### [facility] [address] [place] [address] Dr. Ambrosio Ramirez MCH (RBC) [Entitic mass] 34.9 pg Critically high 26.7-34.0 [facility] Comment on above: Performed By: #### O BSCRN #### [facility] [address] [place] [address] Dr. Ambrosio Ramirez MCHC (RBC) [Mass/Vol] 33.5 g/dL Normal 29.9-35.2 [facility] Comment on above: Performed By: #### O BSCRN #### [facility] [address] [place] [address] Dr. Ambrosio Ramirez MCV (RBC) [Entitic vol] 104.1 fL Critically high 81.0-99.0 [facility] Comment on above: Performed By: #### O BSCRN #### [facility] [address] [place] [address] Dr. Ambrosio Ramirez MONO # 0.4 103/ul Normal 0.3-0.8 [facility] Comment on above: Performed By: #### O BSCRN #### [facility] [address] [place] [address] Dr. Ambrosio Ramirez Monocytes/100 WBC (Bld) 8.2 % Normal 1.7-12.0 [facility] Comment on above: Performed By: #### O BSCRN #### [facility] [address] [place] [address] Dr. Ambrosio Ramirez NEUT # 2.1 103/ul Normal 1.4-6.5 [facility] Comment on above: Performed By: #### O BSCRN #### [facility] [address] [place] [address] Dr. Ambrosio Ramirez Neutrophils/100 WBC (Bld) 41.5 % Critically low 43.0-75.0 [facility] Comment on above: Performed By: #### O BSCRN #### [facility] [address] [place] [address] Dr. Ambrosio Ramirez Platelet mean volume (Bld) [Entitic vol] 9.3 fL Critically low 9.5-13.5 [facility] Comment on above: Performed By: #### O BSCRN #### [facility] [address] [place] [address] Dr. Ambrosio Ramirez PLT 210 103/ul Normal 150-450 [facility] Comment on above: Performed By: #### O BSCRN #### [facility] [address] [place] [address] Dr. Ambrosio Ramirez RBC 4.67 106/ul Normal 4.20-5.40 [facility] Comment on above: Performed By: #### O BSCRN #### [facility] [address] [place] [address] Dr. Ambrosio Ramirez WBC 5.0 103/ul Normal 4.0-11.0 [facility] Comment on above: Performed By: #### O BSCRN #### [facility] [address] [place] [address] Dr. Ambrosio Ramirez FREE THYROXINE INDEX T7on -2021 FTI 2.72 Normal 1.30-4.50 [facility] Comment on above: Performed By: #### O BSCRN #### [facility] [address] [place] [address] Dr. Ambrosio Ramirez T3U 32.0 % Normal 30.0-39.0 [facility] Comment on above: Performed By: #### O BSCRN #### [facility] [address] [place] [address] Dr. Ambrosio Ramirez T4 [Mass/Vol] 8.50 ug/dL Normal 4.80-13.90 [facility] Comment on above: Performed By: #### O BSCRN #### [facility] [address] [place] [address] Dr. Ambrosio Ramirez GLYCOHEMOGLOBIN A1Con 2021 ADA RECOMMENDATION SEE BELOW Normal [facility] Comment on above: Result Comment: ADA RECOMMENDED LIMIT 4.0 - 6.0 ADA THERAPEUTIC TARGET < 7.0 ACTION SUGGESTED > 7.0 Performed By: #### A 1C #### [facility] [address] [place] [address] Dr. Ambrosio Ramirez Glucose [Mass/Vol] 108 mg/dL Normal [facility] Comment on above: Performed By: #### A 1C #### [facility] [address] [place] [address] Dr. Ambrosio Ramirez HbA1c (Bld) [Mass fraction] 5.4 % Normal 4.5-6.2 [facility] Comment on above: Performed By: #### A 1C #### [facility] [address] [place] [address] Dr. Ambrosio Ramirez HIV 1/2 RAPID (EXPOSURE ONLY )on 08-22-2021 HIV AB Negative Normal [facility] Comment on above: Performed By: #### A 1C #### [facility] [address] [place] [address] Dr. Ambrosio Ramirez HIV AG Negative Normal [facility] Comment on above: Performed By: #### A 1C #### [facility] [address] [address] [address] Ambrosio Ramirez INTERNAL CONTROLS Within Normal Limits Normal Wi thin Normal Limits [facility] Comment on above: Performed By: #### A 1C #### [facility] [address] [place] [address] Dr. Ambrosio Ramirez RAPID HIV INFO SEE BELOW Normal [facility] Comment on above: Result Comment: This test is used for the initial screening of the exposure source. Confirmation of all results will be obtained through reference lab testing. Performed By: #### A 1C #### [facility] [address] [place] [address] Dr. Ambrosio Ramirez IRONon 08-22-2021 Iron [Mass/Vol] 137.0 ug/dL Normal 50.0-170.0 [facility] Comment on above: Performed By: #### I HAMLET #### [facility] [address] [address] [address] Ambrosio Ramirez LIPID PROFILEon 08-22-2021 CHOL-HDL RATIO NORM SEE BELOW Normal [facility] Comment on above: Result Comment: 3.3 - 4.4 LOW RISK 4.4 - 7.1 AVERAGE RISK 7.1 - 11.0 MODERATE RISK >11.0 HIGH RISK Performed By: #### O BSCRN #### [facility] [address] [address] [address] Ambrosio Ramirez Cholesterol [Mass/Vol] 251 mg/dL Critically high <=200 [facility] Comment on above: Performed By: #### O BSCRN #### [facility] [address] [address] [address] Ambrosio Ramirez Cholesterol in HDL [Mass/Vol] 67 mg/dL Critically high 40-60 [facility] Comment on above: Performed By: #### O BSCRN #### [facility] [address] [address] [address] Ambrosio Ramirez Cholesterol in LDL [Mass/Vol] 154.8 mg/dL Normal [facility] Comment on above: Performed By: #### O BSCRN #### [facility] [address] [address] [address] Ambrosio Ramirez Cholesterol.total/Cho lesterol in HDL [Mass ratio] 3.7 {ratio} Normal [facility] Comment on above: Performed By: #### O BSCRN #### [facility] [address] [address] [address] Ambrosio Ramirez HDL NORMAL > or = 60 mg/dl - LOW CARDIOVASCULAR RISK <40 mg/dl - HIGH CARDIOVASCULAR RISK Normal [facility] Comment on above: Performed By: #### O BSCRN #### [facility] [address] [address] [address] Ambrosio Ramirez LDL CALC NORMAL SEE BELOW Normal [facility] Comment on above: Result Comment: <100 mg/dl OPTIMAL 100 - 129 mg/dl NEAR OR ABOVE OPTIMAL 130 - 159 mg/dl BORDERLINE HIGH 160 - 189 mg/dl HIGH >190 mg/dl VERY HIGH Performed By: #### O BSCRN #### [facility] [address] [address] [address] Ambrosio Ramirez Triglyceride [Mass/Vol] 146 mg/dL Normal <=150 [facility] Comment on above: Performed By: #### O BSCRN #### [facility] [address] [address] [address] Ambrosio Ramirez VLDL CALC 29.2 mg/dL Normal [facility] Comment on above: Performed By: #### O BSCRN #### [facility] [address] [address] [address] Ambrosio Ramirez PROF 14(COMP METB)on 022 Albumin [Mass/Vol] 4.3 g/dL Normal 3.4-5.0 [facility] Comment on above: Performed By: #### O BSCRN #### [facility] [address] [place] [address] Dr. Ambrosio Ramirez Albumin/Globulin [Mass ratio] 1.2 {ratio} Normal [facility] Comment on above: Performed By: #### O BSCRN #### [facility] [address] [place] [address] Dr. Ambrosio Ramirez ALP [Catalytic activity/Vol] 57 U/L Normal 46-116 [facility] Comment on above: Performed By: #### O BSCRN #### [facility] [address] [place] [address] Dr. Ambrosio Ramirez ALT [Catalytic activity/Vol] 56 U/L Normal 14-59 [facility] Comment on above: Performed By: #### O BSCRN #### [facility] [address] [place] [address] Dr. Ambrosio Ramirez Anion gap [Moles/Vol] 11.5 mmol/L Normal [facility] Comment on above: Performed By: #### O BSCRN #### [facility] [address] [address] [address] Ambrosio Ramirez AST [Catalytic activity/Vol] 75 U/L Critically high 15-37 [facility] Comment on above: Performed By: #### O BSCRN #### [facility] [address] [place] [address] Dr. Ambrosio Ramirez Bilirubin [Mass/Vol] 0.4 mg/dL Normal 0.2-1.0 [facility] Comment on above: Performed By: #### O BSCRN #### [facility] [address] [place] [address] Dr. Ambrosio Ramirez Calcium [Mass/Vol] 8.7 mg/dL Normal 8.5-10.1 [facility] Comment on above: Performed By: #### O BSCRN #### [facility] [address] [place] [address] Dr. Ambrosio Ramirez Chloride [Moles/Vol] 105 mmol/L Normal 98-107 [facility] Comment on above: Performed By: #### O BSCRN #### [facility] [address] [place] [address] Dr. Ambrosio Ramirez CO2 [Moles/Vol] 30.3 mmol/L Normal 21.0-32.0 [facility] Comment on above: Performed By: #### O BSCRN #### [facility] [address] [place] [address] Dr. Ambrosio Ramirez Creatinine [Mass/Vol] 0.67 mg/dL Normal 0.55-1.02 [facility] Comment on above: Performed By: #### O BSCRN #### [facility] [address] [place] [address] Dr. Ambrosio Ramirez EGFR-AF RWANDAN >60 Normal >=60 [facility] Comment on above: Performed By: #### O BSCRN #### [facility] [address] [place] [address] Dr. Ambrosio Ramirez EGFR-NON AF RWANDAN >60 Normal >=60 [facility] Comment on above: Performed By: #### O BSCRN #### [facility] [address] [place] [address] Dr. Ambrosio Ramirez Globulin (S) [Mass/Vol] 3.7 g/dL Normal [facility] Comment on above: Performed By: #### O BSCRN #### [facility] [address] [address] [address] Ambrosio Ramirez Glucose [Mass/Vol] 93 mg/dL Normal 74-106 [facility] Comment on above: Performed By: #### O BSCRN #### [facility] [address] [place] [address] Dr. Ambrosio Ramirez Potassium [Moles/Vol] 4.8 mmol/L Normal 3.5-5.1 [facility] Comment on above: Performed By: #### O BSCRN #### [facility] [address] [place] [address] Dr. Ambrosio Ramirez Protein [Mass/Vol] 8.0 g/dL Normal 6.4-8.2 [facility] Comment on above: Performed By: #### O BSCRN #### [facility] [address] [place] [address] Dr. Ambrosio Ramirez Sodium [Moles/Vol] 142 mmol/L Normal 136-145 [facility] Comment on above: Performed By: #### O BSCRN #### [facility] [address] [place] [address] Dr. Ambrosio Ramirez Urea nitrogen [Mass/Vol] 8.0 mg/dL Normal 7.0-18.0 [facility] Comment on above: Performed By: #### O BSCRN #### [facility] [address] [place] [address] Dr. Ambrosio Ramirez Urea nitrogen/Creatinine [Mass ratio] 11.9 mg/mg Normal [facility] Comment on above: Performed By: #### O BSCRN #### [facility] [address] [place] [address] Dr. Ambrosio Ramirez TSHon 08-22-2021 TSH 2.117 uIU/mL Normal 0.358-3.740 [facility] Comment on above: Performed By: #### O BSCRN #### [facility] [address] [address] [address] Ambrosio Ramirez XR CSPINE MIN 4 [...] Cervical fusion hardware with no mechanical failure [id number] degenerative changes of the cervical thoracic spine Electronically authenticated by: GEORGE ROWE Date: 2021-08-22 21:[address] [facility] Vital Signs Date Time Vital Sign Value Performing Clinician Facility 05-09-2022 10:14-0400 Diastolic blood pressure 85 mm[Hg] RADIOGRAPHIC TECHNOLOGIST-C Ama [place] Work Phone: [facility] 05-09-2022 10:14-0400 Heart rate 99 /min RADIOGRAPHIC TECHNOLOGIST-C Ama [place] Work Phone: [facility] 05-09-2022 10:14-0400 Respiratory rate 18 /min RADIOGRAPHIC TECHNOLOGIST-C Ama [place] Work Phone: [facility] 05-09-2022 10:14-0400 SaO2% (BldA) [Mass fraction] 99 % RADIOGRAPHIC TECHNOLOGIST-C Ama [place] Work Phone: [facility] 05-09-2022 10:14-0400 Systolic blood pressure 124 mm[Hg] RADIOGRAPHIC TECHNOLOGIST-C Ama [place] Work Phone: [facility] 05-09-2022 08:04-0400 Body height 180.34 cm RADIOGRAPHIC TECHNOLOGIST-C Ama [place] Work Phone: [facility] 05-09-2022 08:04-0400 Body weight 58.96 kg RADIOGRAPHIC TECHNOLOGIST-C Ama [place] Work Phone: [facility] 05-01-2022 11:15-0500 Body height Imad Asaad Other [facility] 05-01-2022 11:15-0500 Body mass index (BMI) [Ratio] 18.13 kg/m2 Imad Asaad Other [facility] Other 05-01-2022 11:15-0500 Body weight 58.97 kg Imad Asaad Other [facility] Other 05-01-2022 11:15-0500 Diastolic blood pressure 102 mm[Hg] Imad Asaad Other [facility] Other 05-01-2022 11:15-0500 Respiratory rate 16 /min Imad Asaad Other [facility] Other 05-01-2022 11:15-0500 Systolic blood pressure 158 mm[Hg] Imad Asaad Other [facility] Other Encounters Encounter Date Encounter Type Care [...] Start: 05-09-2022 End: 05-09-2022 ambulatory Ama [place] Facility:[facility] Start: 05-09-2022 End: 05-09-2022 Admission to same day surgery center RADIOGRAPHIC TECHNOLOGIST-C Ama [place] Work Phone: [facility] Work Phone: Start: 05-09-2022 End: 05-09-2022 ambulatory RADIOGRAPHIC TECHNOLOGIST-C Ama [place] Work Phone: [facility] Work Phone: Start: 05-02-2022 End: 05-02-2022 ambulatory Imad Asaad Other [facility] Other Start: 05-02-2022 Telephone encounter Imad Asaad [facility] Start: 05-01-2022 End: 05-01-2022 ambulatory Imad Asaad Other [facility] Other Start: 05-01-2022 Office consultation new/estab patient [...] Date Care Activity Detail Author Start: 05-09-2022 [facility] Patient Education Colon Polyps H emorrhoids (DC) Diverticulosis (DC) Gastritis (DC) [facility] Work Phone: Payers Date Payer Category Payer Self-pay 2022 Unknown 1960 Unknown [id number] 2.16.84 [id number] 1960 Unknown [id number] 2.16.84 [id number] 1960 Unknown [id number] 2.16.84 [id number] 1962 Unknown [id number] 2.16.84 [id number] 1962 Unknown [id number] 2.16.84 [id number] 1962 Unknown [id number] 2.16.84 [id number] 1962 Unknown [id number] 2.16.84 [id number] 1962 Unknown [id number] 2.16. [id number] 1962 Unknown [id number] 2.16. [id number] 1962 Unknown [id number] 2.16. [id number] 1962 Unknown [id number] 2.16. [id number] 1962 Unknown [id number] 2.16. [id number] 1962 Unknown [id number] 2.16. [id number] 1962 Unknown [id number] 2.16. [id number] 1957 Medicare [id number] 1959 Unknown [id number] 1959 Unknown [id number] 1959 Unknown [id number] Unknown [id number] 2.16.8 [id number] Social History Date Type Detail Facility Start: 05-09-2022 Tobacco smoking status NHIS Smoker (finding) [facility] Start: 1960 Sex Assigned At Female F [facility] Sex Assigned At Sex Assigned At Bir th [facility] Other Goals Date Patient Goal Desired Activity /State Procedure note 05-09-2022 Note Date & Type Note Facility 05-09-2022 Procedure note [facility] Evaluation note 05-01-2022 Note Date & Type Note Facility 05-01-2022 Evaluation note Encounter Date Diagnosis Assessment Notes Apr, Dysphagia (ICD-10 - R13.10) Apr, Weight loss (ICD-10 - R63.4) Apr, Colon cancer screening (ICD-10 - Z12.11) [facility] Other Evaluation note Note Date & Type Note Facility Evaluation note No assessment information availa [facility] Work Phone: Evaluation note Note Date & Type Note Facility Evaluation note No Information [facility] Other History general Narrative - Reported Note Date & Type Note Facility History general Narrative - Reported Type Medical History Anxiety/Depression Surgical History Neck surgery Surgical History Tonsillectomy Hospitalization History See above [facility] Other Hospital Discharge instructions Note Date & [...] NOT operate machinery such as power tools, [employer] mowers, snow blowers, sewing machines, etc. for [...] -Follow up with PCP. - Office number [phone]. [facility] Work Phone: Chief Complaint and Reason [...] content) [facility] DIARRHEA, WEIGHT LOSS AND DYSPHAGIAClinical INFORMATION SOURCE (unrecogn ized section and content) DATE CREATED AUTHOR 05/20/2022 [facility] DATE CREATED AUTHOR AUTHOR'S ORGANIZ ATION 07/02/2022 [facility] DATE CREATED AUTHOR AUTHOR'S ORGANIZ ATION 10/06/2023 [facility] FOR RECORDS PERTAINING TO PATIENTS WHO ARE [...] BE BASED ON THE PRIMARY CLINICAL RECORDS. [employer] provides no warranty or guarantee of the accuracy or completeness of information in this document.
--- NOTE | 2023-10-22 15:47 | P.CN_ITS ---
Consult Note: HPI Data of Consult Patient: known to practice within the last 3 years Consult date: 08/17/23 Requesting Physician: Angle Brownlee NP Primary Care Provider: SOLITARIO EDWARDS Consult Narrative Reason for consult: neck pain Narrative: 62yof who presents for assessment. continues to have significant neck pain. denies adverse med side effects. patient recently underwent right and left C3-4 C3-4 RFA 50% improvement ongoing. patient continues to have discomfort across occipital nerves and bilateral traps. patient not currently utilizing butrans or zonegran due to concerns of side effects. continues to f/u with Dr Reyes post lumbar fusion. cc:: CC: Angle Brownlee NP Review of Systems ROS Status of ROS 10 or more systems reviewed and unremark able except as noted in history and below Musculoskeletal Reports: back pain and neck pain PFSH PFSH Medical History Dyspnea on exertion ?R06.09 - Other forms of dyspnea (ICD-10) Colon polyp ?K63.5 - Polyp of colon (ICD-10) Fibromyalgia ?M79.7 - Fibromyalgia (ICD-10) Back pain ?M54.9 - Dorsalgia, unspecified (ICD-10) Arthritis ?M19.90 - Unspecified osteoarthritis, unspecified site (ICD-10) Claustrophobia ?F40.240 - Claustrophobia (ICD-10) Insomnia ?G47.00 - Insomnia, unspecified (ICD-10) Heartburn ?R12 - Heartburn (ICD-10) Diverticulitis ?K57.92 - Diverticulitis of intestine, part unspecified, without perforation or abscess without bleeding (ICD-10) Degeneration of lumbosacral intervertebral disc ?M51.37 - Other intervertebral disc degeneration, lumbosacral region (ICD-10) Spondylolisthesis, lumbar region ?M43.16 - Spondylolisthesis, lumbar region (ICD-10) Cervical disc displacement ?M50.20 - Other cervical disc displacement, unspecified cervical region (ICD- 10) Spinal stenosis, cervical region ?M48.02 - Spinal stenosis, cervical region (ICD-10) Other cervical disc degeneration, high cervical region ?M50.31 - Other cervical disc degeneration, high cervical region (ICD-10) Anxiety ?F41.9 - Anxiety disorder, unspecified (ICD-10) Depression ?F32.A - Depression, unspecified (ICD-10) Bronchitis ?J40 - Bronchitis, not specified as acute or chronic (ICD-10) HTN (hypertension) ?I10 - Essential (primary) hypertension (ICD-10) Intervertebral disc degeneration Myofascial pain ?M79.18 - Myalgia, other site (ICD-10) Cervical radiculopathy ?M54.12 - Radiculopathy, cervical region (ICD-10) Lumbar stenosis with neurogenic claudication ?M48.062 - Spinal stenosis, lumbar region with neurogenic claudication (ICD- 10) Chronic use of benzodiazepine for therapeutic purpose ?Z79.899 - Other meterman (current) drug therapy (ICD-10) Greater trochanteric bursitis of both hips ?M70.61 - Trochanteric bursitis, right hip (ICD-10) ?M70.62 - Trochanteric bursitis, left hip (ICD-10) Muscle spasm ?M62.838 - Other muscle spasm (ICD-10) Cervical postlaminectomy syndrome ?M96.1 - Postlaminectomy syndrome, not elsewhere classified (ICD-10) Cervical spondylosis ?M47.812 - Spondylosis without myelopathy or radiculopathy, cervical region (ICD-10) Upper back pain ?M54.9 - Dorsalgia, unspecified (ICD-10) Neck pain ?M54.2 - Cervicalgia (ICD-10) Smoker ?F17.200 - Nicotine dependence, unspecified, uncomplicated (ICD-10) Surgical History History of colonoscopy ?Z98.890 - Other specified postprocedural states (ICD-10) S/P epidural steroid injection ?Z92.241 - Personal history of systemic steroid therapy (ICD-10) History of tonsillectomy ?Z90.89 - Acquired absence of other organs (ICD-10) H/O cervical spine surgery ?Z98.890 - Other specified postprocedural states (ICD-10) Family History Other Family history of breast cancer Social History Within the past year, how often did you have a drink containing alcohol: 2-4 times a month Smoking status: Current every day smoker What tobacco products do you use: cigarettes Packs per day: 1 Years smoked: 45 Smoking pack-years: 45.00 Highest level of school completed/degree received: 9th grade Meds Home Medications and Allergies Home Medications ?Medication ?Instructions ?Recorded ?Confirmed ?Type alprazolam 0.25 mg tablet (Xanax) 0.25 mg PO BID PRN anxiety 11/10/22 10/09/23 History cyclobenzaprine 10 mg tablet 10 mg PO TID PRN muscle spasm #90 07/06/23 10/09/23 Rx tabs etodolac 400 mg tablet 400 mg PO BID #60 tabs 07/29/23 10/09/23 Rx omeprazole 40 mg capsule,delayed 40 mg PO DAILY 08/31/23 10/09/23 History release albuterol sulfate 90 mcg/actuation 2 inh inhalation Q6H PRN shortness 09/25/23 10/09/23 History aerosol inhaler of breath or wheezing trazodone 50 mg tablet 50 mg PO QPM PRN sleep 09/25/23 10/09/23 History zonisamide 100 mg capsule 100 mg PO BID PRN NEEDED 10/09/23 10/09/23 History orphenadrine citrate 100 mg 100 mg PO BID PRN Muscle spasms 30 10/11/23 Rx tablet,extended release days #60 tabs Allergies Allergy/AdvReac Type Severity Reaction Status Date / Time No Known Drug Allergies Allergy Verified 09/25/23 12:58 Exam Constitutional Documenting provider has reviewed patient's vital signs: yes Common normals: no apparent distress, oriented x3, healthy appearing, alert and well nourished General appearance: cooperative [facility] Common normals: normocephalic, hearing grossly normal bilaterally and moist oral mucous membranes Head and scalp: normocephalic Eye Common normals: PERRL Pupil: PERRL Neck & C-Spine Common normals: full ROM General: normal visual inspection Cervical spine: cervical ROM abnormal, pain with cervical ROM, paracervical muscle tenderness, paracervical muscle spasm and trapezius muscle tenderness Other: trigger points noted in bilateral splenius capitus and bilateral trapezius sensation intact BUE strength 5/5 in BUE Chest Common normals: inspection of chest normal Respiratory Common normals: normal respiratory effort, no retractions and no use of accessory muscles Neuro Common normals: oriented x3, CN's II-XII intact bilaterally, moves all extremities, no focal motor deficits, no sensory deficits noted and deep tendon reflexes 2+ bilaterally Sensorium/orientation: alert Motor exam: strength 5/5 throughout and no movement abnormalities noted Psych Common normals: mental status grossly normal, thought process normal, cooperative, affect normal, speech normal and activity/motor behavior normal Speech: normal speech Thought process: normal thought process Results Additional Findings Additional findings: If on a controlled substance or opioids, I have checked an [place] report on this patient and there are no aberrancies noted in the prescribing history.??If on a controlled substance or opioid a drug screen was completed and reviewed within the last year, and if there has not been a drug screen completed we ordered one today to monitor higher risk, state monitored pain medication use. As part of providing excellent, safe, comprehensive care, the following was completed at our patient's visit: 1. A medication reconciliation and review to ensure accurate knowledge of current/active medications, including asking our patients to inform us about any [id number] medications or herbal remedies/nutritional supplements/alternative remedies. 2. A review to specifically ensure our patients have had annual screening for screening for depression, screening for tobacco use, and screening for unhealthy alcohol use. For concerning screenings had a discussion with the patient, provided patient education, and recommended follow-up with primary care provider when appropriate. If patient noted with a risk of falling, they received education on strength, gait, and balance training to prevent future risk of falling. Assessment and Plan Assessment and Plan (1) Cervical spondylosis: (2) Cervical postlaminectomy syndrome: (3) Muscle spasm: (4) Myofascial pain: Plan with residual myofascial pain and trigger points i am recommending bilateral trapezius and splenius capitus TPI in office with Dr Reynaga, can consider occipital nerve blocks if pain persists continue current medications f/u 3 months, sooner if needed
== END 2023-10-22 14:54 | disposition home or self-care (01) ==
LOC: PM 14:53
PROVIDERS: PCP Nurse Practitioner Family; Visit Provider Nurse Practitioner
DX: M47.812 Spondylosis without myelopathy or radiculopathy, cervical region (principal); M96.1 Postlaminectomy syndrome, not elsewhere classified; M62.838 Other muscle spasm
CPT/HCPCS: G0463

== ENCOUNTER 2023-11-13 11:45 | Outpatient (OUT) | payer MEDICARE, OTHER, MEDICAID, SELFPAY ==
--- NOTE | 2023-11-13 | XR_ITS ---
The [address] [address] Patient Name: CARLA ABDI MRN: [facility]:[id number] date: 1960 Sex: F Assigned Patient Location: Current Patient Location: Accession/Order Number: [id number] Exam Date: 11/13/2023 11:46 Report Date: 11/16/2023 13:30 At the request of: SHAD REID Procedure: XR lumbar spine 2-3V EXAMINATION: XR lumbar spine 2-3V HISTORY: LUMBAR SPINE PAIN COMPARISON: No relevant comparison available. FINDINGS: BONES: Posterior decompression and transpedicular fusion L4-L5 with no mechanical failure. 10 mm anterolisthesis of L4 and L5. Minimal spondylosis. Moderate facet osteoarthropathy DISC SPACES: Collapse L4-5 PARASPINOUS: Negative. No paraspinous abnormality is seen. OTHER: Vascular calcifications XR/XR lumbar spine 2-3V IMPRESSION: Lumbar fusion with no mechanical failure Electronically authenticated by: GEROGE ROWE Date: 11/16/2023 13:30
--- OUTSIDE RECORDS SUMMARY | 2023-11-13 11:49 | XMS_ITS | CCD ---
Author Organization [facility] CliniSyct Care Team Providers Care Hand Almond Blancher Name Role Phone MD Nesha Bryant Attending [...] 30 days Apr, Active polyethylene glycol 3350 786105 mg / potassium chloride 2970 mg / sodium bicarbonate 6740 mg / sodium chloride 5860 mg / sodium sulfate 01421 mg powder for oral solution (2 sources) [...] Test Name Value Interpretation Reference Range Facility [facility] 05-09-2022 L Specimen: [id number] Received: 05/09/22 Status: EDUARD Zaragoza Num: [id number] Spec Type: Surgical Subm Dr: Nesha Bryant MD Tissues: A Gastric Biopsy (GASTRIC) B Esophagus Biopsy (DISTAL ESOPHAGUS) C Esophagus Biopsy (PROXIMAL ESOPHAGUS) D Colon Biopsy (CECAL POLYP) E Colon Biopsy (SIGMOID POLYP) F Colon Biopsy (RECTAL POLYPS X3) Procedures: /, Gross/Micro L4/6 Age/ Patient Sex Location Account Attending Physician Nancy Joyce 61/F [id number] Nesha Bryant MD SPEC NUM: [id number] RECD: 05/09/22 STATUS: EDUARD ZARAGOZA NUM: [id number] KATY: 05/09/22- SUBM DR: Nesha Bryant MD ENTERED: 05/09/22-1040 [facility] DR: SPEC TYPE: Surgical DEPT: S ORDERED: [...] mucosal fold. - Negative for adenoma/dysplasia. Specimen: [id number] Received: 05/09/22 Status: EDURAD Nickbatsheva Num: [id number] Spec Type: Surgical Subm Dr: Nesha Bryant MD Tissues: A Gastric Biopsy (GASTRIC) B Esophagus Biopsy (DISTAL ESOPHAGUS) C Esophagus Biopsy (PROXIMAL ESOPHAGUS) D Colon Biopsy (CECAL POLYP) E Colon Biopsy (SIGMOID POLYP) F Colon Biopsy (RECTAL POLYPS X3) Procedures: HE/12, Gross/Micro L4/6 Patient: Nancy Joyce [id number] (Continued) Specimen: [id number] Received: 05/09/22 (Continued) Pathological Diagnosis (Continued) Signed (signature on file) Carin Oliveros MD 05/12/22 1130 Specimen: [id number] Received: 05/09/22 Status: EDUARD Zaragoza Num: [id number] Spec Type: Surgical Subm Dr: Nesha Bryant MD Tissues: A Gastric Biopsy (GASTRIC) B Esophagus Biopsy (DISTAL ESOPHAGUS) C Esophagus Biopsy (PROXIMAL ESOPHAGUS) D Colon Biopsy (CECAL POLYP) E Colon Biopsy (SIGMOID POLYP) F Colon Biopsy (RECTAL POLYPS X3) Procedures: ROSI/Barbara, Gross/Micro L4/6 Patient: Nancy Joyce [id number] (Continued) Specimen: [id number] Received: 05/09/22 (Continued) Pathological Diagnosis (Continued) E. [...] cassette labeled 1. (more content not included)... [facility] XR MODIFIED BARIUM SWALLOWon 03-25-2022 XR [...] DENNY RINCON Date: 2022-03-25 13:[address] [facility] INSULINon 03-13-2022 Insulin 3.9 uIU/mL Normal 2.6-24.9 [facility] Comment on above: Performed By: #### O BSCRN #### [facility] [address] [address] [address] Ambrosio Ramirez XR CSPINE MIN 4 [...] DENNY RINCON Date: 2022-03-13 08:[address] [facility] CBC AUTO DIFFon 03-12-2022 BASO # 0.0 103/ul Normal 0.0-0.1 [facility] Comment on above: Performed By: #### C BC #### [facility] [address] [address] [address] Ambrosio Ramirez Basophils/100 WBC (Bld) 0.7 % Normal 0.2-2.0 [facility] Comment on above: Performed By: #### C BC #### [facility] [address] [address] [address] Ambrosio Ramirez EO # 0.1 103/ul Normal 0.0-0.7 [facility] Comment on above: Performed By: #### C BC #### [facility] [address] [place] [address] Dr. Ambrosio Ramirez Eosinophils/100 WBC (Bld) 0.9 % Normal 0.9-7.0 [facility] Comment on above: Performed By: #### C BC #### [facility] [address] [place] [address] Dr. Ambrosio Ramirez Erythrocyte distribution width (RBC) [Ratio] 12.3 % Normal 11.0-15.0 [facility] Comment on above: Performed By: #### C BC #### [facility] [address] [place] [address] Dr. Ambrosio Ramirez Hematocrit (Bld) [Volume fraction] 46.0 % Normal 36.0-48.0 [facility] Comment on above: Performed By: #### C BC #### [facility] [address] [place] [address] Dr. Ambrosio Ramirez Hemoglobin (Bld) [Mass/Vol] 15.2 g/dL Normal 12.0-16.0 [facility] Comment on above: Performed By: #### C BC #### [facility] [address] [place] [address] Dr. Ambrosio Ramirez IG # 0.03 10e3/ul Normal 0.00-0.03 [facility] Comment on above: Performed By: #### C BC #### [facility] [address] [place] [address] Dr. Ambrosio Ramirez IG % 0.5 % Normal 0.0-0.[address] [facility] Comment on above: Performed By: #### C BC #### [facility] [address] [place] [address] Dr. Ambrosio Ramirez LYMPH # 2.0 103/ul Normal 1.2-3.[address] [facility] Comment on above: Performed By: #### C BC #### [facility] [address] [place] [address] Dr. Ambrosio Ramirez Lymphocytes/100 WBC (Bld) 35.0 % Normal 20.5-60.0 [facility] Comment on above: Performed By: #### C BC #### [facility] [address] [place] [address] Dr. Ambrosio Ramirez MANUAL DIFF REQ NO Normal [facility] Comment on above: Performed By: #### C BC #### [facility] [address] [place] [address] Dr. Ambrosio Ramirez MCH (RBC) [Entitic mass] 33.8 pg Normal 26.7-34.0 [facility] Comment on above: Performed By: #### C BC #### [facility] [address] [place] [address] Dr. Ambrosio Ramirez MCHC (RBC) [Mass/Vol] 33.0 g/dL Normal 29.9-35.2 [facility] Comment on above: Performed By: #### C BC #### [facility] [address] [place] [address] Dr. Ambrosio Ramirez MCV (RBC) [Entitic vol] 102.2 fL Critically high 81.0-99.0 [facility] Comment on above: Performed By: #### C BC #### [facility] [address] [place] [address] Dr. Ambrosio Ramirez MONO # 0.4 103/ul Normal 0.3-0.8 [facility] Comment on above: Performed By: #### C BC #### [facility] [address] [place] [address] Dr. Ambrosio Ramirez Monocytes/100 WBC (Bld) 7.2 % Normal 1.7-12.0 [facility] Comment on above: Performed By: #### C BC #### [facility] [address] [place] [address] Dr. Ambrosio Ramirez NEUT # 3.2 103/ul Normal 1.4-6.[address] [facility] Comment on above: Performed By: #### C BC #### [facility] [address] [place] [address] Dr. Ambrosio Ramirez Neutrophils/100 WBC (Bld) 55.7 % Normal 43.0-75.[address] [facility] Comment on above: Performed By: #### C BC #### [facility] [address] [place] [address] Dr. Ambrosio Ramirez Platelet mean volume (Bld) [Entitic vol] 9.1 fL Critically low 9.5-13.5 [facility] Comment on above: Performed By: #### C BC #### [facility] [address] [place] [address] Dr. Ambrosio Ramirez PLT 234 103/ul Normal 150-[address] [facility] Comment on above: Performed By: #### C BC #### [facility] [address] [place] [address] Dr. Ambrosio Ramirez RBC 4.50 106/ul Normal 4.20-5.40 [facility] Comment on above: Performed By: #### C BC #### [facility] [address] [place] [address] Dr. Ambrosio Ramirez WBC 5.7 103/ul Normal 4.0-11.0 [facility] Comment on above: Performed By: #### C BC #### [facility] [address] [place] [address] Dr. Ambrosio Ramirez FREE THYROXINE INDEX T7on FTI 2.41 Normal 1.30-4.50 [facility] Comment on above: Performed By: #### A 1C #### [facility] [address] [place] [address] Dr. Ambrosio Ramirez T3U 33.0 % Normal 30.0-39.0 [facility] Comment on above: Performed By: #### A 1C #### [facility] [address] [place] [address] Dr. Ambrosio Ramirez T4 [Mass/Vol] 7.30 ug/dL Normal 4.80-13.90 [facility] Comment on above: Performed By: #### A 1C #### [facility] [address] [place] [address] Dr. Ambrosio Ramirez GLYCOHEMOGLOBIN A1Con 2022 ADA RECOMMENDATION SEE BELOW Normal [facility] Comment on above: Result Comment: ADA RECOMMENDED LIMIT 4.0 - 6.0 ADA THERAPEUTIC TARGET < 7.0 ACTION SUGGESTED > 7.0 Performed By: #### A 1C #### [facility] [address] [address] [address] Ambrosio Ramirez Glucose [Mass/Vol] 100 mg/dL Normal [facility] Comment on above: Performed By: #### A 1C #### [facility] [address] [place] [address] Dr. Ambrosio Ramirez HbA1c (Bld) [Mass fraction] 5.1 % Normal 4.5-6.2 [facility] Comment on above: Performed By: #### A 1C #### [facility] [address] [place] [address] Dr. Ambrosio Ramirez IRONon 03-12-2022 Iron [Mass/Vol] 148.0 ug/dL Normal 50.0-170.0 [facility] Comment on above: Performed By: #### O BSCRN #### [facility] [address] [place] [address] Dr. Ambrosio Ramirez LIPID PROFILEon 03-12-2022 CHOL-HDL RATIO NORM SEE BELOW Normal [facility] Comment on above: Result Comment: 3.3 - 4.4 LOW RISK 4.4 - 7.1 AVERAGE RISK 7.1 - 11.0 MODERATE RISK >11.0 HIGH RISK Performed By: #### A 1C #### [facility] [address] [place] [address] Dr. Ambrosio Ramirez Cholesterol [Mass/Vol] 234 mg/dL Critically high <=200 [facility] Comment on above: Performed By: #### A 1C #### [facility] [address] [place] [address] Dr. Ambrosio Ramirez Cholesterol in HDL [Mass/Vol] 71 mg/dL Critically high 40-60 [facility] Comment on above: Performed By: #### A 1C #### [facility] [address] [place] [address] Dr. Ambrosio Ramirez Cholesterol in LDL [Mass/Vol] 132.4 mg/dL Normal [facility] Comment on above: Performed By: #### A 1C #### [facility] [address] [place] [address] Dr. Ambrosio Ramirez Cholesterol.total/Cho lesterol in HDL [Mass ratio] 3.3 {ratio} Normal [facility] Comment on above: Performed By: #### A 1C #### [facility] [address] [address] [address] Ambrosio Ramirez HDL NORMAL > or = 60 mg/dl - LOW CARDIOVASCULAR RISK <40 mg/dl - HIGH CARDIOVASCULAR RISK Normal [facility] Comment on above: Performed By: #### A 1C #### [facility] [address] [address] [address] Ambrosio Ramirez LDL CALC NORMAL SEE BELOW Normal [facility] Comment on above: Result Comment: <100 mg/dl OPTIMAL 100 - 129 mg/dl NEAR OR ABOVE OPTIMAL 130 - 159 mg/dl BORDERLINE HIGH 160 - 189 mg/dl HIGH >190 mg/dl VERY HIGH Performed By: #### A 1C #### [facility] [address] [address] [address] Ambrosio Ramirez Triglyceride [Mass/Vol] 153 mg/dL Critically high <=150 [facility] Comment on above: Performed By: #### A 1C #### [facility] [address] [address] [address] Ambrosio Ramirez VLDL CALC 30.6 mg/dL Normal [facility] Comment on above: Performed By: #### A 1C #### [facility] [address] [address] [address] Ambrosio Ramirez PROF 14(COMP METB)on 023 Albumin [Mass/Vol] 4.2 g/dL Normal 3.4-5.0 [facility] Comment on above: Performed By: #### A 1C #### [facility] [address] [address] [address] Ambrosio Ramirez Albumin/Globulin [Mass ratio] 1.3 {ratio} Normal [facility] Comment on above: Performed By: #### A 1C #### [facility] [address] [address] [address] Ambrosio Ramirez ALP [Catalytic activity/Vol] 62 U/L Normal 46-116 [facility] Comment on above: Performed By: #### A 1C #### [facility] [address] [address] [address] Ambrosio Ramirez ALT [Catalytic activity/Vol] 27 U/L Normal 14-59 [facility] Comment on above: Performed By: #### A 1C #### [facility] [address] [address] [address] Ambrosio Ramirez Anion gap [Moles/Vol] 12.8 mmol/L Normal [facility] Comment on above: Performed By: #### A 1C #### [facility] [address] [address] [address] Ambrosio Ramirez AST [Catalytic activity/Vol] 39 U/L Critically high 15-37 [facility] Comment on above: Performed By: #### A 1C #### [facility] [address] [place] [address] Dr. Ambrosio Ramirez Bilirubin [Mass/Vol] 0.4 mg/dL Normal 0.2-1.0 [facility] Comment on above: Performed By: #### A 1C #### [facility] [address] [place] [address] Dr. Ambrosio Ramirez Calcium [Mass/Vol] 9.1 mg/dL Normal 8.5-10.1 [facility] Comment on above: Performed By: #### A 1C #### [facility] [address] [place] [address] Dr. Ambrosio Ramirez Chloride [Moles/Vol] 103 mmol/L Normal 98-107 [facility] Comment on above: Performed By: #### A 1C #### [facility] [address] [address] [address] Ambrosio Ramirez CO2 [Moles/Vol] 30.5 mmol/L Normal 21.0-32.0 [facility] Comment on above: Performed By: #### A 1C #### [facility] [address] [place] [address] Dr. Ambrosio Ramirez Creatinine [Mass/Vol] 0.54 mg/dL Critically low 0.55-1.02 [facility] Comment on above: Performed By: #### A 1C #### [facility] [address] [address] [address] Ambrosio Ramirez EGFR-AF SOUTH AFRICAN >60 Normal >=[address] [facility] Comment on above: Performed By: #### A 1C #### [facility] [address] [address] [address] Ambrosio Ramirez EGFR-NON AF SOUTH AFRICAN >60 Normal >=60 [facility] Comment on above: Performed By: #### A 1C #### [facility] [address] [address] [address] Ambrosio Ramirez Globulin (S) [Mass/Vol] 3.3 g/dL Normal [facility] Comment on above: Performed By: #### A 1C #### [facility] [address] [place] [address] Dr. Ambrosio Ramirez Glucose [Mass/Vol] 88 mg/dL Normal 74-106 [facility] Comment on above: Performed By: #### A 1C #### [facility] [address] [place] [address] Dr. Ambrosio Ramirez Potassium [Moles/Vol] 4.3 mmol/L Normal 3.5-5.1 [facility] Comment on above: Performed By: #### A 1C #### [facility] [address] [place] [address] Dr. Ambrosio Ramirez Protein [Mass/Vol] 7.5 g/dL Normal 6.4-8.2 [facility] Comment on above: Performed By: #### A 1C #### [facility] [address] [place] [address] Dr. Ambrosio Ramirez Sodium [Moles/Vol] 142 mmol/L Normal 136-145 [facility] Comment on above: Performed By: #### A 1C #### [facility] [address] [place] [address] Dr. Ambrosio Ramirez Urea nitrogen [Mass/Vol] 9.0 mg/dL Normal 7.0-18.0 [facility] Comment on above: Performed By: #### A 1C #### [facility] [address] [place] [address] Dr. Ambrosio Ramirez Urea nitrogen/Creatinine [Mass ratio] 16.7 mg/mg Normal [facility] Comment on above: Performed By: #### A 1C #### [facility] [address] [place], [place] [address] Dr. Ambrosio Ramirez TSHon 03-12-2022 TSH 1.934 uIU/mL Normal 0.358-3.740 [facility] Comment on above: Performed By: #### A 1C #### [facility] [address] [place], [place] [address] Dr. Ambrosio Ramirez XR TSPINE 3 VIEWSon [...] GEORGE CATALAN Date: 2022-03-12 17:[address] [facility] Covid-19 PCR (CVDTB)on SARS-CoV-2 (COVID-19) RNA JAYY+probe Ql (Unsp spec) Not detected Normal NOT DETECTED [facility] Comment on above: Result Comment: When [...] for this test is supported by the [place] of Health and Human Service's declaration that [...] used). Performed By: #### C VDTBH #### [facility] [address] [address] [address] Ambrosio Ramirez INFLUENZA A AND B AGon 01-27 INFLUENZA A AG Negative Normal NEGATIVE SEE COMMENT [facility] Comment on above: Performed By: #### I NFLUAB #### [facility] [address] [place] [address] Dr. Ambrosio Ramirez INFLUENZA B AG Negative Normal NEGATIVE SEE COMMENT [facility] Comment on above: Performed By: #### I NFLUAB #### [facility] [address] [address] [address] Ambrosio Ramirez INTERNAL CONTROLS Within Normal Limits Normal Wi thin Normal Limits [facility] Comment on above: Performed By: #### I NFLUAB #### [facility] [address] [place] [address] Dr. Ambrosio Ramirez XR CHEST 2 Von [...] GEORGE ROWE Date: 2022-01-27 14:[address] [facility] RPR QUANTon 08-26-2021 Rapid Plasma Reagin, Quant Non-Reactive Normal NonRea<1:[address] [facility] Comment on above: Result Comment: Plea se Note: This test does not meet current guidelines for screening and diagnosis of syphilis. This test is intended for following treatment response in patients being treated for syphilis infection. To screen for syphilis infection, a reflex cascade that includes both RPR and a treponema-specific assay should be utilized, such as Treponema pallidum (Syphilis) Screening [place] (635231) or Rapid Plasma Reagin (RPR) Test With Reflex to Quantitative RPR and Confirmatory Treponema pallidum Antibodies (147465). Performed By: #### R PRQ #### [facility] [address] [place] [address] Dr. Ambrosio Ramirez HEP B SURFACE ANTIGEN SCREEN on 08-24-2021 HBsAg Screen Negative Normal Negative [facility] Comment on above: Performed By: #### H BSANS #### [facility] [address] [place] [address] Dr. Ambrosio Ramirez HEPATITIS C ANTIBODYon 08-24 Hep C Virus Ab <0.1 Normal 0.0-0.9 [facility] Comment on above: Result Comment: Nega [...] Hepatitis C Virus (HCV) RNA, Diagnosis, JAYY (462381) and Hepatitis C Virus (HCV) Antibody with reflex to Quantitative Real-time PCR (092433). Performed By: #### H CV #### [facility] [address] [place] [address] Dr. Ambrosio Ramirez INSULINon 08-23-2021 Insulin 5.0 uIU/mL Normal 2.6-24.9 [facility] Comment on above: Performed By: #### A 1C #### [facility] [address] [place] [address] Dr. Ambrosio Ramirez OCC BLD IMMUNO SCREENon OCCULT BLOOD Negative Normal NEGATIVE [facility] Comment on above: Performed By: #### O BSCRN #### [facility] [address] [place] [address] Dr. Ambrosio Ramirez CBC AUTO DIFFon 08-22-2021 BASO # 0.1 103/ul Normal 0.0-0.1 [facility] Comment on above: Performed By: #### O BSCRN #### [facility] [address] [place] [address] Dr. Ambrosio Ramirez Basophils/100 WBC (Bld) 1.0 % Normal 0.2-2.0 [facility] Comment on above: Performed By: #### O BSCRN #### [facility] [address] [place] [address] Dr. Ambrosio Ramirez EO # 0.1 103/ul Normal 0.0-0.7 [facility] Comment on above: Performed By: #### O BSCRN #### [facility] [address] [place] [address] Dr. Ambrosio Ramirez Eosinophils/100 WBC (Bld) 1.8 % Normal 0.9-7.0 [facility] Comment on above: Performed By: #### O BSCRN #### [facility] [address] [place] [address] Dr. Ambrosio Ramirez Erythrocyte distribution width (RBC) [Ratio] 11.9 % Normal 11.0-15.0 [facility] Comment on above: Performed By: #### O BSCRN #### [facility] [address] [place] [address] Dr. Ambrosio Ramirez Hematocrit (Bld) [Volume fraction] 48.6 % Critically high 36.0-48.0 [facility] Comment on above: Performed By: #### O BSCRN #### [facility] [address] [place] [address] Dr. Ambrosio Ramirez Hemoglobin (Bld) [Mass/Vol] 16.3 g/dL Critically high 12.0-16.0 [facility] Comment on above: Performed By: #### O BSCRN #### [facility] [address] [place] [address] Dr. Ambrosio Ramirez IG # 0.03 10e3/ul Normal 0.00-0.03 [facility] Comment on above: Performed By: #### O BSCRN #### [facility] [address] [place] [address] Dr. Ambrosio Ramirez IG % 0.6 % Critically high 0.0-0.5 [facility] Comment on above: Performed By: #### O BSCRN #### [facility] [address] [place] [address] Dr. Ambrosio Ramirez LYMPH # 2.4 103/ul Normal 1.2-3.[address] [facility] Comment on above: Performed By: #### O BSCRN #### [facility] [address] [place] [address] Dr. Ambrosio Ramirez Lymphocytes/100 WBC (Bld) 46.9 % Normal 20.5-60.0 [facility] Comment on above: Performed By: #### O BSCRN #### [facility] [address] [place] [address] Dr. Ambrosio Ramirez MANUAL DIFF REQ NO Normal [facility] Comment on above: Performed By: #### O BSCRN #### [facility] [address] [place] [address] Dr. Ambrosio Ramirez MCH (RBC) [Entitic mass] 34.9 pg Critically high 26.7-34.0 [facility] Comment on above: Performed By: #### O BSCRN #### [facility] [address] [place] [address] Dr. Ambrosio Ramirez MCHC (RBC) [Mass/Vol] 33.5 g/dL Normal 29.9-35.2 [facility] Comment on above: Performed By: #### O BSCRN #### [facility] [address] [place] [address] Dr. Ambrosio Ramirez MCV (RBC) [Entitic vol] 104.1 fL Critically high 81.0-99.0 [facility] Comment on above: Performed By: #### O BSCRN #### [facility] [address] [place] [address] Dr. Ambrosio Ramirez MONO # 0.4 103/ul Normal 0.3-0.8 [facility] Comment on above: Performed By: #### O BSCRN #### [facility] [address] [place] [address] Dr. Ambrosio Ramirez Monocytes/100 WBC (Bld) 8.2 % Normal 1.7-12.0 [facility] Comment on above: Performed By: #### O BSCRN #### [facility] [address] [place] [address] Dr. Ambrosio Ramirez NEUT # 2.1 103/ul Normal 1.4-6.5 [facility] Comment on above: Performed By: #### O BSCRN #### [facility] [address] [place] [address] Dr. Ambrosio Ramirez Neutrophils/100 WBC (Bld) 41.5 % Critically low 43.0-75.0 [facility] Comment on above: Performed By: #### O BSCRN #### [facility] [address] [place] [address] Dr. Ambrosio Ramirez Platelet mean volume (Bld) [Entitic vol] 9.3 fL Critically low 9.5-13.5 [facility] Comment on above: Performed By: #### O BSCRN #### [facility] [address] [place] [address] Dr. Ambrosio Ramirez PLT 210 103/ul Normal 150-450 [facility] Comment on above: Performed By: #### O BSCRN #### [facility] [address] [place] [address] Dr. Ambrosio Ramirez RBC 4.67 106/ul Normal 4.20-5.40 [facility] Comment on above: Performed By: #### O BSCRN #### [facility] [address] [place] [address] Dr. Ambrosio Ramirez WBC 5.0 103/ul Normal 4.0-11.0 [facility] Comment on above: Performed By: #### O BSCRN #### [facility] [address] [place] [address] Dr. Ambrosio Ramirez FREE THYROXINE INDEX T7on -2021 FTI 2.72 Normal 1.30-4.50 [facility] Comment on above: Performed By: #### O BSCRN #### [facility] [address] [place] [address] Dr. Ambrosio Ramirez T3U 32.0 % Normal 30.0-39.0 [facility] Comment on above: Performed By: #### O BSCRN #### [facility] [address] [place] [address] Dr. Ambrosio Ramirez T4 [Mass/Vol] 8.50 ug/dL Normal 4.80-13.90 [facility] Comment on above: Performed By: #### O BSCRN #### [facility] [address] [place] [address] Dr. Ambrosio Ramirez GLYCOHEMOGLOBIN A1Con 2021 ADA RECOMMENDATION SEE BELOW Normal [facility] Comment on above: Result Comment: ADA RECOMMENDED LIMIT 4.0 - 6.0 ADA THERAPEUTIC TARGET < 7.0 ACTION SUGGESTED > 7.0 Performed By: #### A 1C #### [facility] [address] [place] [address] Dr. Ambrosio Ramirez Glucose [Mass/Vol] 108 mg/dL Normal [facility] Comment on above: Performed By: #### A 1C #### [facility] [address] [place] [address] Dr. Ambrosio Ramirez HbA1c (Bld) [Mass fraction] 5.4 % Normal 4.5-6.2 [facility] Comment on above: Performed By: #### A 1C #### [facility] [address] [place] [address] Dr. Ambrosio Ramirez HIV 1/2 RAPID (EXPOSURE ONLY )on 08-22-2021 HIV AB Negative Normal [facility] Comment on above: Performed By: #### A 1C #### [facility] [address] [place] [address] Dr. Ambrosio Ramirez HIV AG Negative Normal [facility] Comment on above: Performed By: #### A 1C #### [facility] [address] [address] [address] Ambrosio Ramirez INTERNAL CONTROLS Within Normal Limits Normal Wi thin Normal Limits [facility] Comment on above: Performed By: #### A 1C #### [facility] [address] [place] [address] Dr. Ambrosio Ramirez RAPID HIV INFO SEE BELOW Normal [facility] Comment on above: Result Comment: This test is used for the initial screening of the exposure source. Confirmation of all results will be obtained through reference lab testing. Performed By: #### A 1C #### [facility] [address] [place] [address] Dr. Ambrosio Ramirez IRONon 08-22-2021 Iron [Mass/Vol] 137.0 ug/dL Normal 50.0-170.0 [facility] Comment on above: Performed By: #### I HAMLET #### [facility] [address] [address] [address] Ambrosio Ramirez LIPID PROFILEon 08-22-2021 CHOL-HDL RATIO NORM SEE BELOW Normal [facility] Comment on above: Result Comment: 3.3 - 4.4 LOW RISK 4.4 - 7.1 AVERAGE RISK 7.1 - 11.0 MODERATE RISK >11.0 HIGH RISK Performed By: #### O BSCRN #### [facility] [address] [address] [address] Ambrosio Ramirez Cholesterol [Mass/Vol] 251 mg/dL Critically high <=200 [facility] Comment on above: Performed By: #### O BSCRN #### [facility] [address] [address] [address] Ambrosio Ramirez Cholesterol in HDL [Mass/Vol] 67 mg/dL Critically high 40-60 [facility] Comment on above: Performed By: #### O BSCRN #### [facility] [address] [address] [address] Ambrosio Ramirez Cholesterol in LDL [Mass/Vol] 154.8 mg/dL Normal [facility] Comment on above: Performed By: #### O BSCRN #### [facility] [address] [address] [address] Ambrosio Ramirez Cholesterol.total/Cho lesterol in HDL [Mass ratio] 3.7 {ratio} Normal [facility] Comment on above: Performed By: #### O BSCRN #### [facility] [address] [address] [address] Ambrosio Ramirez HDL NORMAL > or = 60 mg/dl - LOW CARDIOVASCULAR RISK <40 mg/dl - HIGH CARDIOVASCULAR RISK Normal [facility] Comment on above: Performed By: #### O BSCRN #### [facility] [address] [address] [address] Ambrosio Ramirez LDL CALC NORMAL SEE BELOW Normal [facility] Comment on above: Result Comment: <100 mg/dl OPTIMAL 100 - 129 mg/dl NEAR OR ABOVE OPTIMAL 130 - 159 mg/dl BORDERLINE HIGH 160 - 189 mg/dl HIGH >190 mg/dl VERY HIGH Performed By: #### O BSCRN #### [facility] [address] [address] [address] Ambrosio Ramirez Triglyceride [Mass/Vol] 146 mg/dL Normal <=150 [facility] Comment on above: Performed By: #### O BSCRN #### [facility] [address] [address] [address] Ambrosio Ramirez VLDL CALC 29.2 mg/dL Normal [facility] Comment on above: Performed By: #### O BSCRN #### [facility] [address] [address] [address] Ambrosio Ramirez PROF 14(COMP METB)on 022 Albumin [Mass/Vol] 4.3 g/dL Normal 3.4-5.0 [facility] Comment on above: Performed By: #### O BSCRN #### [facility] [address] [place] [address] Dr. Ambrosio Ramirez Albumin/Globulin [Mass ratio] 1.2 {ratio} Normal [facility] Comment on above: Performed By: #### O BSCRN #### [facility] [address] [place] [address] Dr. Ambrosio Ramirez ALP [Catalytic activity/Vol] 57 U/L Normal 46-116 [facility] Comment on above: Performed By: #### O BSCRN #### [facility] [address] [place] [address] Dr. Ambrosio Ramirez ALT [Catalytic activity/Vol] 56 U/L Normal 14-59 [facility] Comment on above: Performed By: #### O BSCRN #### [facility] [address] [place] [address] Dr. Ambrosio Ramirez Anion gap [Moles/Vol] 11.5 mmol/L Normal [facility] Comment on above: Performed By: #### O BSCRN #### [facility] [address] [address] [address] Ambrosio Ramirez AST [Catalytic activity/Vol] 75 U/L Critically high 15-37 [facility] Comment on above: Performed By: #### O BSCRN #### [facility] [address] [place] [address] Dr. Ambrosio Ramirez Bilirubin [Mass/Vol] 0.4 mg/dL Normal 0.2-1.0 [facility] Comment on above: Performed By: #### O BSCRN #### [facility] [address] [place] [address] Dr. Ambrosio Ramirez Calcium [Mass/Vol] 8.7 mg/dL Normal 8.5-10.1 [facility] Comment on above: Performed By: #### O BSCRN #### [facility] [address] [place] [address] Dr. Ambrosio Ramirez Chloride [Moles/Vol] 105 mmol/L Normal 98-107 [facility] Comment on above: Performed By: #### O BSCRN #### [facility] [address] [place] [address] Dr. Ambroiso Ramirez CO2 [Moles/Vol] 30.3 mmol/L Normal 21.0-32.[address] [facility] Comment on above: Performed By: #### O BSCRN #### [facility] [address] [place] [address] Dr. Ambrosio Ramirez Creatinine [Mass/Vol] 0.67 mg/dL Normal 0.55-1.02 [facility] Comment on above: Performed By: #### O BSCRN #### [facility] [address] [place] [address] Dr. Ambrosio Ramirez EGFR-AF SOUTH AFRICAN >60 Normal >=[address] [facility] Comment on above: Performed By: #### O BSCRN #### [facility] [address] [place] [address] Dr. Ambrosio Ramirez EGFR-NON AF SOUTH AFRICAN >60 Normal >=[address] [facility] Comment on above: Performed By: #### O BSCRN #### [facility] [address] [place] [address] Dr. Ambrosio Ramirez Globulin (S) [Mass/Vol] 3.7 g/dL Normal [facility] Comment on above: Performed By: #### O BSCRN #### [facility] [address] [address] [address] Ambrosio Ramirez Glucose [Mass/Vol] 93 mg/dL Normal 74-106 [facility] Comment on above: Performed By: #### O BSCRN #### [facility] [address] [place] [address] Dr. Ambrosio Ramirez Potassium [Moles/Vol] 4.8 mmol/L Normal 3.5-5.1 [facility] Comment on above: Performed By: #### O BSCRN #### [facility] [address] [place] [address] Dr. Ambrosio Ramirez Protein [Mass/Vol] 8.0 g/dL Normal 6.4-8.2 [facility] Comment on above: Performed By: #### O BSCRN #### [facility] [address] [place] [address] Dr. Ambrosio Ramirez Sodium [Moles/Vol] 142 mmol/L Normal 136-145 [facility] Comment on above: Performed By: #### O BSCRN #### [facility] [address] [place] [address] Dr. Ambrosio Ramirez Urea nitrogen [Mass/Vol] 8.0 mg/dL Normal 7.0-18.0 [facility] Comment on above: Performed By: #### O BSCRN #### [facility] [address] [place] [address] Dr. Ambrosio Ramirez Urea nitrogen/Creatinine [Mass ratio] 11.9 mg/mg Normal [facility] Comment on above: Performed By: #### O BSCRN #### [facility] [address] [place] [address] Dr. Ambrosio Ramirez TSHon 08-22-2021 TSH 2.117 uIU/mL Normal 0.358-3.740 [facility] Comment on above: Performed By: #### O BSCRN #### [facility] [address] [address] [address] 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 Electronically authenticated by: GEORGE ROWE Date: 2021-08-22 21:07 Normal [facility] Vital Signs Date Time Vital Sign Value Performing Clinician Facility 05-09-2022 10:14-0400 Diastolic blood pressure 85 mm[Hg] [facility] Ama Edwards Work Phone: [facility] 05-09-2022 10:14-0400 Heart rate 99 /min [facility] [employer] Ama Edwards Work Phone: [facility] 05-09-2022 10:14-0400 Respiratory rate 18 /min [employer] [employer] Ama Edwards Work Phone: [facility] 05-09-2022 10:14-0400 SaO2% (BldA) [Mass fraction] 99 % [employer] Ama Edwards Work Phone: [facility] 05-09-2022 10:14-0400 Systolic blood pressure 124 mm[Hg] [employer] [employer] Ama Edwards Work Phone: [facility] 05-09-2022 08:04-0400 Body height 180.34 cm [employer] Ama Edwards Work Phone: [facility] 05-09-2022 08:04-0400 Body weight 58.96 kg [employer] Ama Edwards Work Phone: [facility] 05-01-2022 11:15-0500 Body height Imad Asaad Other [facility] Other 05-01-2022 11:15-0500 Body mass index (BMI) [Ratio] 18.13 kg/m2 Imad Asaad Other [facility] Other 05-01-2022 11:15-0500 Body weight 58.97 kg Imad Asaad Other [facility] Other 05-01-2022 11:15-0500 Diastolic blood pressure 102 mm[Hg] Imad Asaad Other [facility] Other 05-01-2022 11:15-0500 Respiratory rate 16 /min Imad Asaad Other [facility] Other 05-01-2022 11:15-0500 Systolic blood pressure 158 mm[Hg] Imad Asaad Other [facility] Other Encounters Encounter Date Encounter Type Care [...] Start: 05-09-2022 End: 05-09-2022 ambulatory Ama Edwards Facility:[facility] Start: 05-09-2022 End: 05-09-2022 Admission to same day surgery center [facility] Ama Edwards Work Phone: [facility] Work Phone: Start: 05-09-2022 End: 05-09-2022 ambulatory [facility] Ama Edwards Work Phone: [facility] Work Phone: Start: 05-02-2022 End: 05-02-2022 ambulatory Imad Asaad Other [facility] Other Start: 05-02-2022 Telephone encounter Imad Asaad [facility] Start: 05-01-2022 End: 05-01-2022 ambulatory Imad Asaad Other [facility] Other Start: 05-01-2022 Office consultation new/estab patient [...] Date Care Activity Detail Author Start: 05-09-2022 [facility] Patient Education Colon Polyps H emorrhoids (DC) Diverticulosis (DC) Gastritis (DC) [facility] Work Phone: Payers Date Payer Category Payer Self-pay 2022 Unknown 1960 Unknown [id number] 2.16.84 [id number] 1960 Unknown [id number] 2.16.84 [id number] 1960 Unknown [id number] 2.16.84 [id number] 1960 Unknown [id number] 2.16.84 0.1.892728.3.579.2.593 1960 Unknown [id number] 2.16.84 0.1.855078.3.579.2.593 1960 Unknown [id number] 2.16.84 0.1.857812.3.579.2.593 1960 Unknown [id number] 2.16.84 0.1.085630.3.579.2.593 1960 Unknown [id number] 2.16. 840.1.151974.3.579.2.196 1960 Unknown [id number] 2.16. 840.1.460804.3.579.2.196 1960 Unknown [id number] 2.16. 840.1.482455.3.579.2.196 1960 Unknown [id number] 2.16. 840.1.145446.3.579.2.196 1960 Unknown [id number] 2.16. 840.1.136709.3.579.2.196 1960 Unknown [id number] 2.16. 840.1.505448.3.579.2.196 1960 Unknown [id number] 2.16. 840.1.702562.3.579.2.196 1957 Medicare [id number] 1959 Unknown [id number] 1957 Unknown [id number] 1957 Unknown [id number] Unknown [id number] 2.16.8 [id number] Social History Date Type Detail Facility Start: 05-09-2022 Tobacco smoking status NHIS Smoker (finding) [facility] Start: 1960 Sex Assigned At Female F [facility] Sex Assigned At Sex Assigned At Bir th [facility] Other Goals Date Patient Goal Desired Activity /State Procedure note 05-09-2022 Note Date & Type Note Facility 05-09-2022 Procedure note [facility] Evaluation note 05-01-2022 Note Date & Type Note Facility 05-01-2022 Evaluation note Encounter Date Diagnosis Assessment Notes Apr, Dysphagia (ICD-10 - R13.10) Apr, Weight loss (ICD-10 - R63.4) Apr, Colon cancer screening (ICD-10 - Z12.11) [facility] Other Evaluation note Note Date & Type Note Facility Evaluation note No assessment information availa [facility] Work Phone: Evaluation note Note Date & Type Note Facility Evaluation note No Information [employer] Other History general Narrative - Reported Note Date & Type Note Facility History general Narrative - Reported Type Medical History Anxiety/Depression Surgical History Neck surgery Surgical History Tonsillectomy Hospitalization History See above [facility] Other Hospital Discharge instructions Note Date & [...] NOT operate machinery such as power tools, [employer] mowers, snow blowers, sewing machines, etc. for [...] -Follow up with PCP. - Office number [phone]. [facility] Work Phone: Chief Complaint and [...] and content) [facility] DIARRHEA, WEIGHT LOSS AND DYSPHAGIAClinical INFORMATION SOURCE (unrecogn ized section and content) DATE CREATED AUTHOR 05/20/2022 [facility] DATE CREATED AUTHOR AUTHOR'S ORGANIZ ATION 07/02/2022 [facility] DATE CREATED AUTHOR AUTHOR'S ORGANIZ ATION 10/06/2023 [facility] FOR RECORDS PERTAINING TO PATIENTS WHO ARE [...] BE BASED ON THE PRIMARY CLINICAL RECORDS. [employer] provides no warranty or guarantee of the accuracy or completeness of information in this document.
== END 2023-11-13 11:46 | disposition home or self-care (01) ==
LOC: EC 11:45
PROVIDERS: PCP Nurse Practitioner Family; Visit Provider Orthopaedic Surgery Orthopaedic Surgery of the Spine
DX: M54.50 Low back pain, unspecified (principal); M43.26 Fusion of spine, lumbar region
CPT/HCPCS: 72100

== ENCOUNTER 2023-11-23 14:05 | Outpatient (OUT) | payer MEDICARE, OTHER, MEDICAID, SELFPAY ==
--- NOTE | 2023-11-23 14:10 | XR_ITS ---
The [address] [address] Patient Name: CARLA ABDI MRN: [id number] date: 1960 Sex: F Assigned Patient Location: LAB Current Patient Location: LAB Accession/Order Number: [id number] Exam Date: 11/23/2023 14:20 Report Date: 11/23/2023 14:42 At the request of: SOILTARIO EDWARDS Procedure: XR chest 2V PROCEDURE: XR chest 2V DATE: 11/23/2023 1:20 PM CDT COMPARISONS: 09/25/2023 CLINICAL INDICATION: 63 years Female Chronic Obstructive Pulmonary Disease FINDINGS: The cardiomediastinal silhouette and pulmonary vasculature are within normal limits. There is slight scattered increased interstitial markings likely representing some chronic lung changes, stable. The lungs are otherwise clear. There is no evidence of pleural effusion or pneumothorax. XR/XR chest 2V IMPRESSION: Probable mild chronic lung changes. Stable chest. Electronically authenticated by: FABIO JAMES Date: 11/23/2023 14:42
--- OUTSIDE RECORDS SUMMARY | 2023-11-23 14:18 | XMS_ITS | CCD ---
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 Name Role Phone MD Nesha Bryant Attending Provider [phone] JIE Edwards Primary Care Provider Asaad, Imad [...] Unavailable Giedraitis , Andkrishna Yoo Attending Unavailable Gicarmenitis , Manuel Yoo Attending Unavailable Giedcitlalli LEON, Manule Yoo Attending Unavailable Giedraitis MD, Manuel Yoo [...] 30 days Apr, Active polyethylene glycol 3350 792807 mg / potassium chloride 2970 mg / sodium bicarbonate 6740 mg / sodium chloride 5860 mg / sodium sulfate 95739 mg powder for oral solution (2 sources) [...] Test Name Value Interpretation Reference Range [facility] L Specimen: [id number] Received: 05/09/22 Status: EDUARD Zaragoza Num: [id number] Spec Type: Surgical Subm Dr: Nesha Bryant MD Tissues: A Gastric Biopsy (GASTRIC) B Esophagus Biopsy (DISTAL ESOPHAGUS) C Esophagus Biopsy (PROXIMAL ESOPHAGUS) D Colon Biopsy (CECAL POLYP) E Colon Biopsy (SIGMOID POLYP) F Colon Biopsy (RECTAL POLYPS X3) Procedures: /, Gross/Micro L4/6 Age/ Patient Sex Location Account Attending Physician Nancy Joyce 61/F [id number] Nesha Bryant MD SPEC NUM: [id number] RECD: 05/09/22 STATUS: EDUARD ZARAGOZA NUM: [id number] KATY: 05/09/22- SUBM DR: Nesha Bryant MD ENTERED: 05/09/22-[address] [facility] [address]: SPEC TYPE: Surgical DEPT: S [...] mucosal fold. - Negative for adenoma/dysplasia. Specimen: [id number] Received: 05/09/22 Status: EDUARD Nickbatsheva Num: [id number] Spec Type: Surgical Subm Dr: Nesha Bryant MD Tissues: A Gastric Biopsy (GASTRIC) B Esophagus Biopsy (DISTAL ESOPHAGUS) C Esophagus Biopsy (PROXIMAL ESOPHAGUS) D Colon Biopsy (CECAL POLYP) E Colon Biopsy (SIGMOID POLYP) F Colon Biopsy (RECTAL POLYPS X3) Procedures: HE/12, Gross/Micro L4/6 Patient: Nancy Joyce [id number] (Continued) Specimen: [id number] Received: 05/09/22 (Continued) Pathological Diagnosis (Continued) Signed (signature on file) Carin Oliveros MD 05/12/22 1130 Specimen: [id number] Received: 05/09/22 Status: EDUARD Zaragoza Num: [id number] Spec Type: Surgical Subm Dr: Nesha Bryant MD Tissues: A Gastric Biopsy (GASTRIC) B Esophagus Biopsy (DISTAL ESOPHAGUS) C Esophagus Biopsy (PROXIMAL ESOPHAGUS) D Colon Biopsy (CECAL POLYP) E Colon Biopsy (SIGMOID POLYP) F Colon Biopsy (RECTAL POLYPS X3) Procedures: ROSI/Barbara, Gross/Micro L4/6 Patient: Nancy Joyce [id number] (Continued) Specimen: [id number] Received: 05/09/22 (Continued) Pathological Diagnosis (Continued) E. [...] cassette labeled 1. (more content not included)... [facility] XR MODIFIED BARIUM SWALLOWon 03-25-2022 XR [...] DENNY RINCON Date: 2022-03-25 13:53 Normal [facility] INSULINon 03-13-2022 Insulin 3.9 uIU/mL Normal 2.6-24.9 [facility] Comment on above: Performed By: #### O BSCRN #### [facility] [address] [address] [address] Ambrosio Ramirez XR CSPINE MIN 4 [...] DENNY RINCON Date: 2022-03-13 08:09 Normal [facility] CBC AUTO DIFFon 03-12-2022 BASO # 0.0 103/ul Normal 0.0-0.1 [facility] Comment on above: Performed By: #### C BC #### [facility] [address] [address] [address] Ambrosio Ramirez Basophils/100 WBC (Bld) 0.7 % Normal 0.2-2.0 [facility] Comment on above: Performed By: #### C BC #### [facility] [address] [address] [address] Ambrosio Ramirez EO # 0.1 103/ul Normal 0.0-0.7 [facility] Comment on above: Performed By: #### C BC #### [facility] [address] [place] [address] Dr. Ambrosio Ramirez Eosinophils/100 WBC (Bld) 0.9 % Normal 0.9-7.0 [facility] Comment on above: Performed By: #### C BC #### [facility] [address] [place] [address] Dr. Ambrosio Ramirez Erythrocyte distribution width (RBC) [Ratio] 12.3 % Normal 11.0-15.0 [facility] Comment on above: Performed By: #### C BC #### [facility] [address] [place] [address] Dr. Ambrosio Ramirez Hematocrit (Bld) [Volume fraction] 46.0 % Normal 36.0-48.0 [facility] Comment on above: Performed By: #### C BC #### [facility] [address] [place] [address] Dr. Ambrosio Ramirez Hemoglobin (Bld) [Mass/Vol] 15.2 g/dL Normal 12.0-16.0 [facility] Comment on above: Performed By: #### C BC #### [facility] [address] [place] [address] Dr. Ambrosio Ramirez IG # 0.03 10e3/ul Normal 0.00-0.03 [facility] Comment on above: Performed By: #### C BC #### [facility] [address] [place] [address] Dr. Ambrosio Ramirez IG % 0.5 % Normal 0.0-0.5 [facility] Comment on above: Performed By: #### C BC #### [facility] [address] [place] [address] Dr. Ambrosio Ramirez LYMPH # 2.0 103/ul Normal 1.2-3.8 [facility] Comment on above: Performed By: #### C BC #### [facility] [address] [place] [address] Dr. Ambrosio Ramirez Lymphocytes/100 WBC (Bld) 35.0 % Normal 20.5-60.0 [facility] Comment on above: Performed By: #### C BC #### [facility] [address] [place] [address] Dr. Ambrosio Ramirez MANUAL DIFF REQ NO Normal [facility] Comment on above: Performed By: #### C BC #### [facility] [address] [place] [address] Dr. Ambrosio Ramirez MCH (RBC) [Entitic mass] 33.8 pg Normal 26.7-34.0 [facility] Comment on above: Performed By: #### C BC #### [facility] [address] [place] [address] Dr. Ambrosio Ramirez MCHC (RBC) [Mass/Vol] 33.0 g/dL Normal 29.9-35.2 [facility] Comment on above: Performed By: #### C BC #### [facility] [address] [place] [address] Dr. Ambrosio Ramirez MCV (RBC) [Entitic vol] 102.2 fL Critically high 81.0-99.0 [facility] Comment on above: Performed By: #### C BC #### [facility] [address] [place] [address] Dr. Ambrosio Ramirez MONO # 0.4 103/ul Normal 0.3-0.8 [facility] Comment on above: Performed By: #### C BC #### [facility] [address] [place] [address] Dr. Ambrosio Ramirez Monocytes/100 WBC (Bld) 7.2 % Normal 1.7-12.0 [facility] Comment on above: Performed By: #### C BC #### [facility] [address] [place] [address] Dr. Ambrosio Ramirez NEUT # 3.2 103/ul Normal 1.4-6.5 [facility] Comment on above: Performed By: #### C BC #### [facility] [address] [place] [address] Dr. Ambrosio Ramirez Neutrophils/100 WBC (Bld) 55.7 % Normal 43.0-75.0 [facility] Comment on above: Performed By: #### C BC #### [facility] [address] [place] [address] Dr. Ambrosio Ramirez Platelet mean volume (Bld) [Entitic vol] 9.1 fL Critically low 9.5-13.5 [facility] Comment on above: Performed By: #### C BC #### [facility] [address] [place] [address] Dr. Ambrosio Ramirez PLT 234 103/ul Normal 150-450 [facility] Comment on above: Performed By: #### C BC #### [facility] [address] [place] [address] Dr. Ambrosio Ramirez RBC 4.50 106/ul Normal 4.20-5.40 [facility] Comment on above: Performed By: #### C BC #### [facility] [address] [place] [address] Dr. Ambrosio Ramirez WBC 5.7 103/ul Normal 4.0-11.0 [facility] Comment on above: Performed By: #### C BC #### [facility] [address] [place] [address] Dr. Ambrosio Ramirez FREE THYROXINE INDEX T7on FTI 2.41 Normal 1.30-4.50 [facility] Comment on above: Performed By: #### A 1C #### [facility] [address] [place] [address] Dr. Ambrosio Ramirez T3U 33.0 % Normal 30.0-39.0 [facility] Comment on above: Performed By: #### A 1C #### [facility] [address] [place] [address] Dr. Ambrosio Ramirez T4 [Mass/Vol] 7.30 ug/dL Normal 4.80-13.90 [facility] Comment on above: Performed By: #### A 1C #### [facility] [address] [place] [address] Dr. Ambrosio Ramirez GLYCOHEMOGLOBIN A1Con 2022 ADA RECOMMENDATION SEE BELOW Normal [facility] Comment on above: Result Comment: ADA RECOMMENDED LIMIT 4.0 - 6.0 ADA THERAPEUTIC TARGET < 7.0 ACTION SUGGESTED > 7.0 Performed By: #### A 1C #### [facility] [address] [address] [address] Ambrosio Ramirez Glucose [Mass/Vol] 100 mg/dL Normal [facility] Comment on above: Performed By: #### A 1C #### [facility] [address] [place] [address] Dr. Ambrosio Ramirez HbA1c (Bld) [Mass fraction] 5.1 % Normal 4.5-6.2 [facility] Comment on above: Performed By: #### A 1C #### [facility] [address] [place] [address] Dr. Ambrosio Ramirez IRONon 03-12-2022 Iron [Mass/Vol] 148.0 ug/dL Normal 50.0-170.0 [facility] Comment on above: Performed By: #### O BSCRN #### [facility] [address] [place] [address] Dr. Ambrosio Ramirez LIPID PROFILEon 03-12-2022 CHOL-HDL RATIO NORM SEE BELOW Normal [facility] Comment on above: Result Comment: 3.3 - 4.4 LOW RISK 4.4 - 7.1 AVERAGE RISK 7.1 - 11.0 MODERATE RISK >11.0 HIGH RISK Performed By: #### A 1C #### [facility] [address] [place] [address] Dr. Ambrosio Ramirez Cholesterol [Mass/Vol] 234 mg/dL Critically high <=200 [facility] Comment on above: Performed By: #### A 1C #### [facility] [address] [place] [address] Dr. Ambrosio Ramirez Cholesterol in HDL [Mass/Vol] 71 mg/dL Critically high 40-60 [facility] Comment on above: Performed By: #### A 1C #### [facility] [address] [place] [address] Dr. Ambrosio Ramirez Cholesterol in LDL [Mass/Vol] 132.4 mg/dL Normal [facility] Comment on above: Performed By: #### A 1C #### [facility] [address] [place] [address] Dr. Ambrosio Ramirez Cholesterol.total/Cho lesterol in HDL [Mass ratio] 3.3 {ratio} Normal [facility] Comment on above: Performed By: #### A 1C #### [facility] [address] [address] [address] Ambrosio Ramirez HDL NORMAL > or = 60 mg/dl - LOW CARDIOVASCULAR RISK <40 mg/dl - HIGH CARDIOVASCULAR RISK Normal [facility] Comment on above: Performed By: #### A 1C #### [facility] [address] [address] [address] Ambrosio Ramirez LDL CALC NORMAL SEE BELOW Normal [facility] Comment on above: Result Comment: <100 mg/dl OPTIMAL 100 - 129 mg/dl NEAR OR ABOVE OPTIMAL 130 - 159 mg/dl BORDERLINE HIGH 160 - 189 mg/dl HIGH >190 mg/dl VERY HIGH Performed By: #### A 1C #### [facility] [address] [address] [address] Ambrosio Ramirez Triglyceride [Mass/Vol] 153 mg/dL Critically high <=150 [facility] Comment on above: Performed By: #### A 1C #### [facility] [address] [address] [address] Ambrosio Ramirez VLDL CALC 30.6 mg/dL Normal [facility] Comment on above: Performed By: #### A 1C #### [facility] [address] [address] [address] Ambrosio Ramirez PROF 14(COMP METB)on 023 Albumin [Mass/Vol] 4.2 g/dL Normal 3.4-5.0 [facility] Comment on above: Performed By: #### A 1C #### [facility] [address] [address] [address] Ambrosio Ramirez Albumin/Globulin [Mass ratio] 1.3 {ratio} Normal [facility] Comment on above: Performed By: #### A 1C #### [facility] [address] [address] [address] Ambrosio Ramirez ALP [Catalytic activity/Vol] 62 U/L Normal 46-116 [facility] Comment on above: Performed By: #### A 1C #### [facility] [address] [address] [address] Ambrosio Ramirez ALT [Catalytic activity/Vol] 27 U/L Normal 14-59 [facility] Comment on above: Performed By: #### A 1C #### [facility] [address] [address] [address] Ambrosio Ramirez Anion gap [Moles/Vol] 12.8 mmol/L Normal Th [facility] Comment on above: Performed By: #### A 1C #### [facility] [address] [address] [address] Ambrosio Ramirez AST [Catalytic activity/Vol] 39 U/L Critically high 15-37 [facility] Comment on above: Performed By: #### A 1C #### [facility] [address] [place] [address] Dr. Ambrosio Ramirez Bilirubin [Mass/Vol] 0.4 mg/dL Normal 0.2-1.0 [facility] Comment on above: Performed By: #### A 1C #### [facility] [address] [place] [address] Dr. Ambrosio Ramirez Calcium [Mass/Vol] 9.1 mg/dL Normal 8.5-10.1 [facility] Comment on above: Performed By: #### A 1C #### [facility] [address] [place] [address] Dr. Ambrosio Ramirez Chloride [Moles/Vol] 103 mmol/L Normal 98-107 [facility] Comment on above: Performed By: #### A 1C #### [facility] [address] [address] [address] Ambrosio Ramirez CO2 [Moles/Vol] 30.5 mmol/L Normal 21.0-32.0 [facility] Comment on above: Performed By: #### A 1C #### [facility] [address] [place] [address] Dr. Ambrosio Ramirez Creatinine [Mass/Vol] 0.54 mg/dL Critically low 0.55-1.02 [facility] Comment on above: Performed By: #### A 1C #### [facility] [address] [address] [address] Ambrosio Ramirez EGFR-AF ZIMBABWEAN >60 Normal >=60 [facility] Comment on above: Performed By: #### A 1C #### [facility] [address] [address] [address] Ambrosio Ramirez EGFR-NON AF ZIMBABWEAN >60 Normal >=60 [facility] Comment on above: Performed By: #### A 1C #### [facility] [address] [address] [address] Ambrosio Ramirez Globulin (S) [Mass/Vol] 3.3 g/dL Normal [facility] Comment on above: Performed By: #### A 1C #### [facility] [address] [place] [address] Dr. Ambrosio Ramirez Glucose [Mass/Vol] 88 mg/dL Normal 74-106 [facility] Comment on above: Performed By: #### A 1C #### [facility] [address] [place] [address] Dr. Ambrosio Ramirez Potassium [Moles/Vol] 4.3 mmol/L Normal 3.5-5.1 [facility] Comment on above: Performed By: #### A 1C #### [facility] [address] [place] [address] Dr. Ambrosio Ramirez Protein [Mass/Vol] 7.5 g/dL Normal 6.4-8.2 [facility] Comment on above: Performed By: #### A 1C #### [facility] [address] [place] [address] Dr. Ambrosio Ramirez Sodium [Moles/Vol] 142 mmol/L Normal 136-145 [facility] Comment on above: Performed By: #### A 1C #### [facility] [address] [place] [address] Dr. Ambrosio Ramirez Urea nitrogen [Mass/Vol] 9.0 mg/dL Normal 7.0-18.0 [facility] Comment on above: Performed By: #### A 1C #### [facility] [address] [place] [address] Dr. Ambrosio Ramirez Urea nitrogen/Creatinine [Mass ratio] 16.7 mg/mg Normal [facility] Comment on above: Performed By: #### A 1C #### [facility] [address] [place], [place] [address] Dr. Ambrosio Ramirez TSHon 03-12-2022 TSH 1.934 uIU/mL Normal 0.358-3.740 [facility] Comment on above: Performed By: #### A 1C #### [facility] [address] [place], [place] [address] Dr. Ambrosio Ramirez XR TSPINE 3 VIEWSon [...] GEORGE CATALAN Date: 2022-03-12 17:07 Normal [facility] Covid-19 PCR (CVDTB)on SARS-CoV-2 (COVID-19) RNA JAYY+probe Ql (Unsp spec) Not detected Normal NOT DETECTED [facility] Comment on above: Result Comment: When [...] for this test is supported by the [place] of [employer] and Human Service's declaration that [...] used). Performed By: #### C VDTBH #### [facility] [address] [address] [address] Ambrosio Ramirez INFLUENZA A AND B AGon 01-27 INFLUENZA A AG Negative Normal NEGATIVE SEE COMMENT [facility] Comment on above: Performed By: #### I NFLUAB #### [facility] [address] [place] [address] Dr. Ambrosio Ramirez INFLUENZA B AG Negative Normal NEGATIVE SEE COMMENT [facility] Comment on above: Performed By: #### I NFLUAB #### [facility] [address] [address] [address] Ambrosio Ramirez INTERNAL CONTROLS Within Normal Limits Normal Wi thin Normal Limits [facility] Comment on above: Performed By: #### I NFLUAB #### [facility] [address] [place] [address] Dr. Ambrosio Ramirez XR CHEST 2 Von [...] GEORGE ROWE Date: 2022-01-27 14:42 Normal [facility] RPR QUANTon 08-26-2021 Rapid Plasma Reagin, Quant Non-Reactive Normal NonRea<1:1 [facility] Comment on above: Result Comment: Plea se Note: This test does not meet current guidelines for screening and diagnosis of syphilis. This test is intended for following treatment response in patients being treated for syphilis infection. To screen for syphilis infection, a reflex cascade that includes both RPR and a treponema-specific assay should be utilized, such as Treponema pallidum (Syphilis) Screening Colbert (134475) or Rapid Plasma Reagin (RPR) Test With Reflex to Quantitative RPR and Confirmatory Treponema pallidum Antibodies (767371). Performed By: #### R PRQ #### [facility] [address] [place] [address] Dr. Ambrosio Ramirez HEP B SURFACE ANTIGEN SCREEN on 08-24-2021 HBsAg Screen Negative Normal Negative [facility] Comment on above: Performed By: #### H BSANS #### [facility] [address] [place] [address] Dr. Ambrosio Ramirez HEPATITIS C ANTIBODYon 08-24 Hep C Virus Ab <0.1 Normal 0.0-0.9 [facility] Comment on above: Result Comment: Nega tive: [...] Hepatitis C Virus (HCV) RNA, Diagnosis, JAYY (378798) and Hepatitis C Virus (HCV) Antibody with reflex to Quantitative Real-time PCR ([id number]). Performed By: #### H CV #### [facility] [address] [place] [address] Dr. Ambrosio Ramirez INSULINon 08-23-2021 Insulin 5.0 uIU/mL Normal 2.6-24.9 [facility] Comment on above: Performed By: #### A 1C #### [facility] [address] [place] [address] Dr. Ambrosio Ramirez OCC BLD IMMUNO SCREENon OCCULT BLOOD Negative Normal NEGATIVE [facility] Comment on above: Performed By: #### O BSCRN #### [facility] [address] [place] [address] Dr. Ambrosio Ramirez CBC AUTO DIFFon 08-22-2021 BASO # 0.1 103/ul Normal 0.0-0.1 [facility] Comment on above: Performed By: #### O BSCRN #### [facility] [address] [place] [address] Dr. Ambrosio Ramirez Basophils/100 WBC (Bld) 1.0 % Normal 0.2-2.0 [facility] Comment on above: Performed By: #### O BSCRN #### [facility] [address] [place] [address] Dr. Ambrosio Ramirez EO # 0.1 103/ul Normal 0.0-0.7 [facility] Comment on above: Performed By: #### O BSCRN #### [facility] [address] [place] [address] Dr. Ambrosio Ramirez Eosinophils/100 WBC (Bld) 1.8 % Normal 0.9-7.0 [facility] Comment on above: Performed By: #### O BSCRN #### [facility] [address] [place] [address] Dr. Ambrosio Ramirez Erythrocyte distribution width (RBC) [Ratio] 11.9 % Normal 11.0-15.0 [facility] Comment on above: Performed By: #### O BSCRN #### [facility] [address] [place] [address] Dr. Ambrosio Ramirez Hematocrit (Bld) [Volume fraction] 48.6 % Critically high 36.0-48.0 [facility] Comment on above: Performed By: #### O BSCRN #### [facility] [address] [place] [address] Dr. Ambrosio Ramirez Hemoglobin (Bld) [Mass/Vol] 16.3 g/dL Critically high 12.0-16.0 [facility] Comment on above: Performed By: #### O BSCRN #### [facility] [address] [place] [address] Dr. Ambrosio Ramirez IG # 0.03 10e3/ul Normal 0.00-0.03 [facility] Comment on above: Performed By: #### O BSCRN #### [facility] [address] [place] [address] Dr. Ambrosio Ramirez IG % 0.6 % Critically high 0.0-0.5 [facility] Comment on above: Performed By: #### O BSCRN #### [facility] [address] [place] [address] Dr. Ambrosio Ramirez LYMPH # 2.4 103/ul Normal 1.2-3.8 [facility] Comment on above: Performed By: #### O BSCRN #### [facility] [address] [place] [address] Dr. Abmrosio Ramirez Lymphocytes/100 WBC (Bld) 46.9 % Normal 20.5-60.0 [facility] Comment on above: Performed By: #### O BSCRN #### [facility] [address] [place] [address] Dr. Ambrosio Ramirez MANUAL DIFF REQ NO Normal [facility] Comment on above: Performed By: #### O BSCRN #### [facility] [address] [place] [address] Dr. Ambrosio Ramirez MCH (RBC) [Entitic mass] 34.9 pg Critically high 26.7-34.0 [facility] Comment on above: Performed By: #### O BSCRN #### [facility] [address] [place] [address] Dr. Ambrosio Ramirez MCHC (RBC) [Mass/Vol] 33.5 g/dL Normal 29.9-35.2 [facility] Comment on above: Performed By: #### O BSCRN #### [facility] [address] [place] [address] Dr. Ambrosio Ramirez MCV (RBC) [Entitic vol] 104.1 fL Critically high 81.0-99.0 [facility] Comment on above: Performed By: #### O BSCRN #### [facility] [address] [place] [address] Dr. Ambrosio Ramirez MONO # 0.4 103/ul Normal 0.3-0.8 [facility] Comment on above: Performed By: #### O BSCRN #### [facility] [address] [place] [address] Dr. Ambrosio Ramirez Monocytes/100 WBC (Bld) 8.2 % Normal 1.7-12.0 [facility] Comment on above: Performed By: #### O BSCRN #### [facility] [address] [place] [address] Dr. Ambrosio Ramirez NEUT # 2.1 103/ul Normal 1.4-6.5 [facility] Comment on above: Performed By: #### O BSCRN #### [facility] [address] [place] [address] Dr. Ambrosio Ramirez Neutrophils/100 WBC (Bld) 41.5 % Critically low 43.0-75.0 [facility] Comment on above: Performed By: #### O BSCRN #### [facility] [address] [place] [address] Dr. Ambrosio Ramirez Platelet mean volume (Bld) [Entitic vol] 9.3 fL Critically low 9.5-13.5 [facility] Comment on above: Performed By: #### O BSCRN #### [facility] [address] [place] [address] Dr. Ambrosio Ramirez PLT 210 103/ul Normal 150-450 [facility] Comment on above: Performed By: #### O BSCRN #### [facility] [address] [place] [address] Dr. Ambrosio Ramirez RBC 4.67 106/ul Normal 4.20-5.40 [facility] Comment on above: Performed By: #### O BSCRN #### [facility] [address] [place] [address] Dr. Ambrosio Ramirez WBC 5.0 103/ul Normal 4.0-11.0 [facility] Comment on above: Performed By: #### O BSCRN #### [facility] [address] [place] [address] Dr. Ambrosio Ramirez FREE THYROXINE INDEX T7on -2021 FTI 2.72 Normal 1.30-4.50 [facility] Comment on above: Performed By: #### O BSCRN #### [facility] [address] [place] [address] Dr. Ambrosio Ramirez T3U 32.0 % Normal 30.0-39.0 [facility] Comment on above: Performed By: #### O BSCRN #### [facility] [address] [place] [address] Dr. Ambrosio Ramirez T4 [Mass/Vol] 8.50 ug/dL Normal 4.80-13.90 [facility] Comment on above: Performed By: #### O BSCRN #### [facility] [address] [place] [address] Dr. Ambrosio Ramirez GLYCOHEMOGLOBIN A1Con 2021 ADA RECOMMENDATION SEE BELOW Normal [facility] Comment on above: Result Comment: ADA RECOMMENDED LIMIT 4.0 - 6.0 ADA THERAPEUTIC TARGET < 7.0 ACTION SUGGESTED > 7.0 Performed By: #### A 1C #### [facility] [address] [place] [address] Dr. Ambrosio Ramirez Glucose [Mass/Vol] 108 mg/dL Normal [facility] Comment on above: Performed By: #### A 1C #### [facility] [address] [place] [address] Dr. Ambrosio Ramirez HbA1c (Bld) [Mass fraction] 5.4 % Normal 4.5-6.2 [facility] Comment on above: Performed By: #### A 1C #### [facility] [address] [place] [address] Dr. Ambrosio Ramirez HIV 1/2 RAPID (EXPOSURE ONLY )on 08-22-2021 HIV AB Negative Normal [facility] Comment on above: Performed By: #### A 1C #### [facility] [address] [place] [address] Dr. Ambrosio Ramirez HIV AG Negative Normal [facility] Comment on above: Performed By: #### A 1C #### [facility] [address] [address] [address] Ambrosio Ramirez INTERNAL CONTROLS Within Normal Limits Normal Wi thin Normal Limits [facility] Comment on above: Performed By: #### A 1C #### [facility] [address] [place] [address] Dr. Ambrosio Ramirez RAPID HIV INFO SEE BELOW Normal [facility] Comment on above: Result Comment: This test is used for the initial screening of the exposure source. Confirmation of all results will be obtained through reference lab testing. Performed By: #### A 1C #### [facility] [address] [place] [address] Dr. Ambrosio Ramirez IRONon 08-22-2021 Iron [Mass/Vol] 137.0 ug/dL Normal 50.0-170.0 [facility] Comment on above: Performed By: #### I HAMLET #### [facility] [address] [address] [address] Ambrosio Ramirez LIPID PROFILEon 08-22-2021 CHOL-HDL RATIO NORM SEE BELOW Normal [facility] Comment on above: Result Comment: 3.3 - 4.4 LOW RISK 4.4 - 7.1 AVERAGE RISK 7.1 - 11.0 MODERATE RISK >11.0 HIGH RISK Performed By: #### O BSCRN #### [facility] [address] [address] [address] Ambrosio Ramirez Cholesterol [Mass/Vol] 251 mg/dL Critically high <=200 [facility] Comment on above: Performed By: #### O BSCRN #### [facility] [address] [address] [address] Ambrosio Ramirez Cholesterol in HDL [Mass/Vol] 67 mg/dL Critically high 40-60 [facility] Comment on above: Performed By: #### O BSCRN #### [facility] [address] [address] [address] Ambrosio Ramirez Cholesterol in LDL [Mass/Vol] 154.8 mg/dL Normal [facility] Comment on above: Performed By: #### O BSCRN #### [facility] [address] [address] [address] Ambrosio Ramirez Cholesterol.total/Cho lesterol in HDL [Mass ratio] 3.7 {ratio} Normal [facility] Comment on above: Performed By: #### O BSCRN #### [facility] [address] [address] [address] Ambrosio Ramirez HDL NORMAL > or = 60 mg/dl - LOW CARDIOVASCULAR RISK <40 mg/dl - HIGH CARDIOVASCULAR RISK Normal [facility] Comment on above: Performed By: #### O BSCRN #### [facility] [address] [address] [address] Ambrosio Ramirez LDL CALC NORMAL SEE BELOW Normal [facility] Comment on above: Result Comment: <100 mg/dl OPTIMAL 100 - 129 mg/dl NEAR OR ABOVE OPTIMAL 130 - 159 mg/dl BORDERLINE HIGH 160 - 189 mg/dl HIGH >190 mg/dl VERY HIGH Performed By: #### O BSCRN #### [facility] [address] [address] [address] Ambrosio Ramirez Triglyceride [Mass/Vol] 146 mg/dL Normal <=150 [facility] Comment on above: Performed By: #### O BSCRN #### [facility] [address] [address] [address] Ambrosio Ramirez VLDL CALC 29.2 mg/dL Normal [facility] Comment on above: Performed By: #### O BSCRN #### [facility] [address] [address] [address] Ambrosio Ramirez PROF 14(COMP METB)on 022 Albumin [Mass/Vol] 4.3 g/dL Normal 3.4-5.0 [facility] Comment on above: Performed By: #### O BSCRN #### [facility] [address] [place] [address] Dr. Ambrosio Ramirez Albumin/Globulin [Mass ratio] 1.2 {ratio} Normal [facility] Comment on above: Performed By: #### O BSCRN #### [facility] [address] [place] [address] Dr. Ambrosio Ramirez ALP [Catalytic activity/Vol] 57 U/L Normal 46-116 [facility] Comment on above: Performed By: #### O BSCRN #### [facility] [address] [place] [address] Dr. Ambrosio Ramirez ALT [Catalytic activity/Vol] 56 U/L Normal 14-59 [facility] Comment on above: Performed By: #### O BSCRN #### [facility] [address] [place] [address] Dr. Ambrosio Ramirez Anion gap [Moles/Vol] 11.5 mmol/L Normal [facility] Comment on above: Performed By: #### O BSCRN #### [facility] [address] [address] [address] Ambrosio Ramirez AST [Catalytic activity/Vol] 75 U/L Critically high 15-37 [facility] Comment on above: Performed By: #### O BSCRN #### [facility] [address] [place] [address] Dr. Ambrosio Ramirez Bilirubin [Mass/Vol] 0.4 mg/dL Normal 0.2-1.0 [facility] Comment on above: Performed By: #### O BSCRN #### [facility] [address] [place] [address] Dr. Ambrosio Ramirez Calcium [Mass/Vol] 8.7 mg/dL Normal 8.5-10.1 [facility] Comment on above: Performed By: #### O BSCRN #### [facility] [address] [place] [address] Dr. Ambrosio Ramirez Chloride [Moles/Vol] 105 mmol/L Normal 98-107 [facility] Comment on above: Performed By: #### O BSCRN #### [facility] [address] [place] [address] Dr. Ambrosio Ramirez CO2 [Moles/Vol] 30.3 mmol/L Normal 21.0-32.0 [facility] Comment on above: Performed By: #### O BSCRN #### [facility] [address] [place] [address] Dr. Ambrosio Ramirez Creatinine [Mass/Vol] 0.67 mg/dL Normal 0.55-1.02 [facility] Comment on above: Performed By: #### O BSCRN #### [facility] [address] [place] [address] Dr. Ambrosio Ramirez EGFR-AF ZIMBABWEAN >60 Normal >=60 [facility] Comment on above: Performed By: #### O BSCRN #### [facility] [address] [place] [address] Dr. Ambrosio Ramirez EGFR-NON AF ZIMBABWEAN >60 Normal >=60 [facility] Comment on above: Performed By: #### O BSCRN #### [facility] [address] [place] [address] Dr. Ambrosio Ramirez Globulin (S) [Mass/Vol] 3.7 g/dL Normal [facility] Comment on above: Performed By: #### O BSCRN #### [facility] [address] [address] [address] Ambrosio Ramirez Glucose [Mass/Vol] 93 mg/dL Normal 74-106 [facility] Comment on above: Performed By: #### O BSCRN #### [facility] [address] [place] [address] Dr. Ambrosio Ramirez Potassium [Moles/Vol] 4.8 mmol/L Normal 3.5-5.1 [facility] Comment on above: Performed By: #### O BSCRN #### [facility] [address] [place] [address] Dr. Ambrosio Ramirez Protein [Mass/Vol] 8.0 g/dL Normal 6.4-8.2 [facility] Comment on above: Performed By: #### O BSCRN #### [facility] [address] [place] [address] Dr. Ambrosio Ramirez Sodium [Moles/Vol] 142 mmol/L Normal 136-145 [facility] Comment on above: Performed By: #### O BSCRN #### [facility] [address] [place] [address] Dr. Ambrosio Ramirez Urea nitrogen [Mass/Vol] 8.0 mg/dL Normal 7.0-18.0 [facility] Comment on above: Performed By: #### O BSCRN #### [facility] [address] [place] [address] Dr. Ambrosio Ramirez Urea nitrogen/Creatinine [Mass ratio] 11.9 mg/mg Normal [facility] Comment on above: Performed By: #### O BSCRN #### [facility] [address] [place] [address] Dr. Ambrosio Ramirez TSHon 08-22-2021 TSH 2.117 uIU/mL Normal 0.358-3.740 [facility] Comment on above: Performed By: #### O BSCRN #### [facility] [address] [address] [address] 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 05-09-2022 10:14-0400 Heart rate 99 /min HAZMAT CDL A DRIVER-C Ama Edwards Work Phone: [facility] 05-09-2022 10:14-0400 Respiratory rate 18 /min HAZMAT CDL A DRIVER-C Ama Edwards Work Phone: [facility] 05-09-2022 10:14-0400 SaO2% (BldA) [Mass fraction] 99 % HAZMAT CDL A DRIVER-C mAa Edwards Work Phone: 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 05-09-2022 08:04-0400 Body weight 58.96 kg HAZMAT CDL A DRIVER-C Ama Edwards Work Phone: [facility] 05-01-2022 11:15-0500 Body height Imad Asaad Other [employer] [facility] Other 05-01-2022 11:15-0500 Body mass index (BMI) [Ratio] 18.13 kg/m2 Imad Asaad Other [employer] [facility] Other 05-01-2022 11:15-0500 Body weight 58.97 kg Imad Asaad Other [employer] [facility] Other 05-01-2022 11:15-0500 Diastolic blood pressure 102 mm[Hg] Imad Asaad Other [employer] Other 05-01-2022 11:15-0500 Respiratory rate 16 /min Imad Asaad Other [employer] [facility] Other 05-01-2022 11:15-0500 Systolic blood pressure 158 mm[Hg] Imad Asaad Other [employer] Other Encounters Encounter Date Encounter Type Care [...] Start: 05-09-2022 End: 05-09-2022 ambulatory Ama Edwards Facility: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 Patient Education Colon Polyps H emorrhoids (DC) Diverticulosis (DC) Gastritis (DC) [facility] Work Phone: Payers Date Payer Category Payer Self-pay 2022 Unknown 1960 Unknown [id number] 2.16.84 [id number] 1960 Unknown [id number] 2.16.84 [id number] 1960 Unknown [id number] 2.16.84 [id number] 1962 Unknown [id number] 2.16.84 [id number] 1962 Unknown [id number] 2.16.84 [id number] 1962 Unknown [id number] 2.16.84 [id number] 1962 Unknown [id number] 2.16.84 [id number] 1962 Unknown [id number] 2.16. [id number] 1962 Unknown [id number] 2.16. [id number] 1962 Unknown [id number] 2.16. [id number] 1962 Unknown [id number] 2.16. 840.1.269774.3.579.2.196 1962 Unknown [id number] 2.16. 840.1.437010.3.579.2.196 1962 Unknown [id number] 2.16. [id number] 1962 Unknown [id number] 2.16. [id number] 1957 Medicare [id number] 1957 Unknown [id number] 1959 Unknown [id number] 1957 Unknown [id number] Unknown [id number] 2.16.8 [id number] Social History Date Type Detail Facility Start: 05-09-2022 Tobacco smoking status NHIS Smoker (finding) [facility] Start: 1960 Sex Assigned At Female F [facility] Sex Assigned At Sex Assigned At Bir th [employer] Other Goals Date Patient Goal Desired Activity /State Procedure note 05-09-2022 Note Date & Type Note Facility 05-09-2022 Procedure note [facility] Evaluation note 05-01-2022 Note Date & Type Note Facility 05-01-2022 Evaluation note Encounter Date Diagnosis Assessment Notes Apr, Dysphagia (ICD-10 - R13.10) Apr, Weight loss (ICD-10 - R63.4) Apr, Colon cancer screening (ICD-10 - Z12.11) [employer] [facility] Other Evaluation note Note Date & Type Note Facility Evaluation note No assessment information availa [facility] Work Phone: Evaluation note Note Date & Type Note Facility Evaluation note No Information [facility] Other History general Narrative - Reported Note Date & Type Note Facility History general Narrative - Reported Type Medical History Anxiety/Depression Surgical History Neck surgery Surgical History Tonsillectomy Hospitalization History See above [facility] [employer] Other Hospital Discharge instructions Note Date & [...] NOT operate machinery such as power tools, [employer] mowers, snow blowers, sewing machines, etc. for [...] -Follow up with PCP. - Office number [phone]. [facility] Work Phone: Chief Complaint and Reason [...] and content) [facility] FOR DIARRHEA, WEIGHT LOSS AND DYSPHAGIAClinical INFORMATION SOURCE (unrecogn ized section and content) DATE CREATED AUTHOR 05/20/2022 [facility] DATE CREATED AUTHOR AUTHOR'S ORGANIZ ATION 07/02/2022 [facility] DATE CREATED AUTHOR AUTHOR'S ORGANIZ ATION 10/06/2023 [facility] FOR RECORDS PERTAINING TO PATIENTS WHO [...] BE BASED ON THE PRIMARY CLINICAL RECORDS. [employer] provides no warranty or guarantee of the accuracy or completeness of information in this document.
[2023-11-23 14:31] LABS: Bilirubin Urine NEGATIVE (NEGATIVE); Blood Urine NEGATIVE (NEGATIVE); Clarity Urine CLEAR (CLEAR); Color Urine YELLOW (YELLOW); Glucose Urine UA NEGATIVE (NEGATIVE); Ketones Urine NEGATIVE (NEGATIVE); Leukocyte Esterase Urine TRACE (NEGATIVE); Nitrite Urine NEGATIVE (NEGATIVE); Protein Urine NEGATIVE (NEG/TRACE); Specific Gravity Urine 1.015 (1.005-1.025); Urobilinogen Urine 0.2 EU/dL (0.2-1.0)
[2023-11-23 14:56] LABS: Bacteria Urine TRACE #/HPF (NONE SEEN); Cast Seen? NONE SEEN #/LPF (NONE SEEN); Crystals Seen? None Seen #/HPF (None Seen); Mucus Urine MODERATE (NONE SEEN); Squamous Epithelial Cell Urine FEW #/LPF (NONE/RARE); Trichomonas Urine SEEN (NONE SEEN)
== END 2023-11-23 14:06 | disposition home or self-care (01) ==
LOC: LAB 14:06
PROVIDERS: PCP Nurse Practitioner Family; Visit Provider Nurse Practitioner Family
DX: R30.0 Dysuria (principal); J44.9 Chronic obstructive pulmonary disease, unspecified
CPT/HCPCS: 71046; 81001; 87086

== ENCOUNTER 2023-11-26 08:35 | Outpatient (OUT) | payer MEDICARE, OTHER, MEDICAID, SELFPAY ==
--- OUTSIDE RECORDS SUMMARY | 2023-11-26 08:39 | XMS_ITS | CCD ---
Author Organization [facility]ini[facility] Care Team Providers Care Support Team Assoc Name Role Phone MD Nesha Bryant Attending Provider [phone] JIE Edwards Primary Care Provider [phone] Asaad, Imad Unavailable Ama Edwards Primary Care [...] Unavailable Juhi LEON, Manuel Yoo Attending Unavailable LEIGH CLARK Attending Unavailable Thompson Diane Referring Unavailable Medications Current Medications Medication Drug Class(es) [...] 30 days Apr, Active polyethylene glycol 3350 232693 mg / potassium chloride 2970 mg / sodium bicarbonate 6740 mg / sodium chloride 5860 mg / sodium sulfate 23050 mg powder for oral solution (2 sources) [...] Test Name Value Interpretation Reference Range Facility [facility] 05-09-2022 L Specimen: [id number] Received: 05/09/22 Status: EDUARD Zaragoza Num: [id number] Spec Type: Surgical Subm Dr: Nesha Bryant MD Tissues: A Gastric Biopsy (GASTRIC) B Esophagus Biopsy (DISTAL ESOPHAGUS) C Esophagus Biopsy (PROXIMAL ESOPHAGUS) D Colon Biopsy (CECAL POLYP) E Colon Biopsy (SIGMOID POLYP) F Colon Biopsy (RECTAL POLYPS X3) Procedures: /Sanya Jimenez/Lindsay L4/6 Age/ Patient Sex Location Account Attending Physician Nancy Joyce 61/F [id number] Nesha Bryant MD SPEC NUM: [id number] RECD: 05/09/22 STATUS: EDUARD ZARAGOZA NUM: [id number] KATY: 05/09/22- SUBM DR: Nesha Bryant MD ENTERED: 05/09/22-[address] [facility] [address]: SPEC TYPE: Surgical DEPT: S [...] mucosal fold. - Negative for adenoma/dysplasia. Specimen: [id number] Received: 05/09/22-1039 Status: MANOLOZahra Zaragoza Num: [id number] Spec Type: Surgical Subm Dr: Nesha Bryant MD Tissues: A Gastric Biopsy (GASTRIC) B Esophagus Biopsy (DISTAL ESOPHAGUS) C Esophagus Biopsy (PROXIMAL ESOPHAGUS) D Colon Biopsy (CECAL POLYP) E Colon Biopsy (SIGMOID POLYP) F Colon Biopsy (RECTAL POLYPS X3) Procedures: HE/12, Gross/Micro L4/6 Patient: Nancy Joyce [id number] (Continued) Specimen: [id number] Received: 05/09/22 (Continued) Pathological Diagnosis (Continued) Signed (signature on file) Carin Oliveros MD 05/12/22 1130 Specimen: [id number] Received: 05/09/22 Status: EDUARD Nik Num: [id number] Spec Type: Surgical Subm Dr: Nesha Bryant MD Tissues: A Gastric Biopsy (GASTRIC) B Esophagus Biopsy (DISTAL ESOPHAGUS) C Esophagus Biopsy (PROXIMAL ESOPHAGUS) D Colon Biopsy (CECAL POLYP) E Colon Biopsy (SIGMOID POLYP) F Colon Biopsy (RECTAL POLYPS X3) Procedures: ROSI/Barbara, Gross/Micro L4/6 Patient: Nancy Joyce [id number] (Continued) Specimen: [id number] Received: 05/09/22-1039 (Continued) Pathological Diagnosis (Continued) E. [...] labeled 1. (more content not included)... Normal [facility] XR MODIFIED BARIUM SWALLOWon 03-25-2022 XR [...] by: DENNY RINCON Date: 2022-03-25 13:53 Normal [facility] INSULINon 03-13-2022 Insulin 3.9 uIU/mL Normal 2.6-24.9 [facility] Comment on above: Performed By: #### O BSCRN #### [facility] [address] [place] [address] Dr. Ambrosio Ramirez XR CSPINE MIN 4 [...] RINCON Date: 2022-03-13 08:09 Normal [facility] CBC AUTO DIFFon 03-12-2022 BASO # 0.0 103/ul Normal 0.0-0.1 [facility] Comment on above: Performed By: #### C BC #### [facility] [address] [place] [address] Dr. Ambrosio Ramirez Basophils/100 WBC (Bld) 0.7 % Normal 0.2-2.0 [facility] Comment on above: Performed By: #### C BC #### [facility] [address] [place] [address] Dr. Ambrosio Ramirez EO # 0.1 103/ul Normal 0.0-0.7 [facility] Comment on above: Performed By: #### C BC #### [facility] [address] [place] [address] Dr. Ambrosio Ramirez Eosinophils/100 WBC (Bld) 0.9 % Normal 0.9-7.0 [facility] Comment on above: Performed By: #### C BC #### [facility] [address] [place] [address] Dr. Ambrosio Ramirez Erythrocyte distribution width (RBC) [Ratio] 12.3 % Normal 11.0-15.0 [facility] Comment on above: Performed By: #### C BC #### [facility] [address] [place] [address] Dr. Ambrosio Ramirez Hematocrit (Bld) [Volume fraction] 46.0 % Normal 36.0-48.0 [facility] Comment on above: Performed By: #### C BC #### [facility] [address] [place] [address] Dr. Ambrosio Ramirez Hemoglobin (Bld) [Mass/Vol] 15.2 g/dL Normal 12.0-16.0 [facility] Comment on above: Performed By: #### C BC #### [facility] [address] [place] [address] Dr. Ambrosio Ramirez IG # 0.03 10e3/ul Normal 0.00-0.03 [facility] Comment on above: Performed By: #### C BC #### [facility] [address] [place] [address] Dr. Ambrosio Ramirez IG % 0.5 % Normal 0.0-0.5 [facility] Comment on above: Performed By: #### C BC #### [facility] [address] [place] [address] Dr. Ambrosio Ramirez LYMPH # 2.0 103/ul Normal 1.2-3.8 [facility] Comment on above: Performed By: #### C BC #### [facility] [address] [place] [address] Dr. Ambrosio Ramirez Lymphocytes/100 WBC (Bld) 35.0 % Normal 20.5-60.0 [facility] Comment on above: Performed By: #### C BC #### [facility] [address] [place] [address] Dr. Ambrosio Ramirez MANUAL DIFF REQ NO Normal [facility] Comment on above: Performed By: #### C BC #### [facility] [address] [place] [address] Dr. Ambrosio Ramirez MCH (RBC) [Entitic mass] 33.8 pg Normal 26.7-34.0 [facility] Comment on above: Performed By: #### C BC #### [facility] [address] [place] [address] Dr. Ambrosio Ramirez MCHC (RBC) [Mass/Vol] 33.0 g/dL Normal 29.9-35.2 [facility] Comment on above: Performed By: #### C BC #### [facility] [address] [place] [address] Dr. Ambrosio Ramirez MCV (RBC) [Entitic vol] 102.2 fL Critically high 81.0-99.0 [facility] Comment on above: Performed By: #### C BC #### [facility] [address] [place] [address] Dr. Ambrosio Ramirez MONO # 0.4 103/ul Normal 0.3-0.8 [facility] Comment on above: Performed By: #### C BC #### [facility] [address] [place] [address] Dr. Ambrosio Ramirez Monocytes/100 WBC (Bld) 7.2 % Normal 1.7-12.0 [facility] Comment on above: Performed By: #### C BC #### [facility] [address] [place] [address] Dr. Ambrosio Ramirez NEUT # 3.2 103/ul Normal 1.4-6.5 [facility] Comment on above: Performed By: #### C BC #### [facility] [address] [place] [address] Dr. Ambrosio Ramirez Neutrophils/100 WBC (Bld) 55.7 % Normal 43.0-75.0 [facility] Comment on above: Performed By: #### C BC #### [facility] [address] [address] [address] Ambrosio Ramirez Platelet mean volume (Bld) [Entitic vol] 9.1 fL Critically low 9.5-13.5 [facility] Comment on above: Performed By: #### C BC #### [facility] [address] [address] [address] Ambrosio Ramirez PLT 234 103/ul Normal 150-450 [facility] Comment on above: Performed By: #### C BC #### [facility] [address] [place] [address] Dr. Ambrosio Ramirez RBC 4.50 106/ul Normal 4.20-5.40 [facility] Comment on above: Performed By: #### C BC #### [facility] [address] [place] [address] Dr. Ambrosio Ramirez WBC 5.7 103/ul Normal 4.0-11.0 [facility] Comment on above: Performed By: #### C BC #### [facility] [address] [place] [address] Dr. Ambrosio Ramirez FREE THYROXINE INDEX T7on FTI 2.41 Normal 1.30-4.50 [facility] Comment on above: Performed By: #### A 1C #### [facility] [address] [place] [address] Dr. Ambrosio Ramirez T3U 33.0 % Normal 30.0-39.0 [facility] Comment on above: Performed By: #### A 1C #### [facility] [address] [place] [address] Dr. Ambrosio Ramirez T4 [Mass/Vol] 7.30 ug/dL Normal 4.80-13.90 [facility] Comment on above: Performed By: #### A 1C #### [facility] [address] [place] [address] Dr. Ambrosio Ramirez GLYCOHEMOGLOBIN A1Con 2022 ADA RECOMMENDATION SEE BELOW Normal [facility] Comment on above: Result Comment: ADA RECOMMENDED LIMIT 4.0 - 6.0 ADA THERAPEUTIC TARGET < 7.0 ACTION SUGGESTED > 7.0 Performed By: #### A 1C #### [facility] [address] [place] [address] Dr. Ambrosio Ramirez Glucose [Mass/Vol] 100 mg/dL Normal [facility] Comment on above: Performed By: #### A 1C #### [facility] [address] [address] [address] Ambrosio Ramirez HbA1c (Bld) [Mass fraction] 5.1 % Normal 4.5-6.2 [facility] Comment on above: Performed By: #### A 1C #### [facility] [address] [place] [address] Dr. Ambrosio Ramirez IRONon 03-12-2022 Iron [Mass/Vol] 148.0 ug/dL Normal 50.0-170.0 [facility] Comment on above: Performed By: #### O BSCRN #### [facility] [address] [place] [address] Dr. Ambrosio Ramirez LIPID PROFILEon 03-12-2022 CHOL-HDL RATIO NORM SEE BELOW Normal [facility] Comment on above: Result Comment: 3.3 - 4.4 LOW RISK 4.4 - 7.1 AVERAGE RISK 7.1 - 11.0 MODERATE RISK >11.0 HIGH RISK Performed By: #### A 1C #### [facility] [address] [place] [address] Dr. Ambrosio Ramirez Cholesterol [Mass/Vol] 234 mg/dL Critically high <=200 [facility] Comment on above: Performed By: #### A 1C #### [facility] [address] [place] [address] Dr. Ambrosio Ramirez Cholesterol in HDL [Mass/Vol] 71 mg/dL Critically high 40-60 [facility] Comment on above: Performed By: #### A 1C #### [facility] [address] [place] [address] Dr. Ambrosio Ramirez Cholesterol in LDL [Mass/Vol] 132.4 mg/dL Normal [facility] Comment on above: Performed By: #### A 1C #### [facility] [address] [address] [address] Ambrosio Ramirez Cholesterol.total/Cho lesterol in HDL [Mass ratio] 3.3 {ratio} Normal [facility] Comment on above: Performed By: #### A 1C #### [facility] [address] [address] [address] Ambrosio Ramirez HDL NORMAL > or = 60 mg/dl - LOW CARDIOVASCULAR RISK <40 mg/dl - HIGH CARDIOVASCULAR RISK Normal [facility] Comment on above: Performed By: #### A 1C #### [facility] [address] [address] [address] Ambrosio Ramirez LDL CALC NORMAL SEE BELOW Normal [facility] Comment on above: Result Comment: <100 mg/dl OPTIMAL 100 - 129 mg/dl NEAR OR ABOVE OPTIMAL 130 - 159 mg/dl BORDERLINE HIGH 160 - 189 mg/dl HIGH >190 mg/dl VERY HIGH Performed By: #### A 1C #### [facility] [address] [address] [address] Ambrosio Ramirez Triglyceride [Mass/Vol] 153 mg/dL Critically high <=150 [facility] Comment on above: Performed By: #### A 1C #### [facility] [address] [address] [address] Ambrosio Ramirez VLDL CALC 30.6 mg/dL Normal [facility] Comment on above: Performed By: #### A 1C #### [facility] [address] [address] [address] Ambrosio Ramirez PROF 14(COMP METB)on 023 Albumin [Mass/Vol] 4.2 g/dL Normal 3.4-5.[address] [facility] Comment on above: Performed By: #### A 1C #### [facility] [address] [address] [address] Ambrosio Ramirez Albumin/Globulin [Mass ratio] 1.3 {ratio} Normal [facility] Comment on above: Performed By: #### A 1C #### [facility] [address] [address] [address] Ambrosio Ramirez ALP [Catalytic activity/Vol] 62 U/L Normal 46-116 [facility] Comment on above: Performed By: #### A 1C #### [facility] [address] [address] [address] Ambrosio Ramirez ALT [Catalytic activity/Vol] 27 U/L Normal 14-59 [facility] Comment on above: Performed By: #### A 1C #### [facility] [address] [address] [address] Ambrosio Ramirez Anion gap [Moles/Vol] 12.8 mmol/L Normal [facility] Comment on above: Performed By: #### A 1C #### [facility] [address] [address] [address] Ambrosio Ramirez AST [Catalytic activity/Vol] 39 U/L Critically high 15-37 [facility] Comment on above: Performed By: #### A 1C #### [facility] [address] [place] [address] Dr. Ambrosio Ramirez Bilirubin [Mass/Vol] 0.4 mg/dL Normal 0.2-1.0 [facility] Comment on above: Performed By: #### A 1C #### [facility] [address] [address] [address] Ambrosio Ramirez Calcium [Mass/Vol] 9.1 mg/dL Normal 8.5-10.[address] [facility] Comment on above: Performed By: #### A 1C #### [facility] [address] [address] [address] Ambrosio Ramirez Chloride [Moles/Vol] 103 mmol/L Normal 98-107 [facility] Comment on above: Performed By: #### A 1C #### [facility] [address] [address] [address] Ambrosio Ramirez CO2 [Moles/Vol] 30.5 mmol/L Normal 21.0-32.0 [facility] Comment on above: Performed By: #### A 1C #### [facility] [address] [address] [address] Ambrosio Ramirez Creatinine [Mass/Vol] 0.54 mg/dL Critically low 0.55-1.02 [facility] Comment on above: Performed By: #### A 1C #### [facility] [address] [address] [address] Ambrosio Ramirez EGFR-AF KOSOVAN >60 Normal >=60 [facility] Comment on above: Performed By: #### A 1C #### [facility] [address] [address] [address] Ambrosio Ramirez EGFR-NON AF KOSOVAN >60 Normal >=60 [facility] Comment on above: Performed By: #### A 1C #### [facility] [address] [address] [address] Ambrosio Ramirez Globulin (S) [Mass/Vol] 3.3 g/dL Normal [facility] Comment on above: Performed By: #### A 1C #### [facility] [address] [place] [address] Dr. Ambrosio Ramirez Glucose [Mass/Vol] 88 mg/dL Normal 74-106 [facility] Comment on above: Performed By: #### A 1C #### [facility] [address] [address] [address] Ambrosio Ramirez Potassium [Moles/Vol] 4.3 mmol/L Normal 3.5-5.1 [facility] Comment on above: Performed By: #### A 1C #### [facility] [address] [place] [address] Dr. Ambrosio Ramirez Protein [Mass/Vol] 7.5 g/dL Normal 6.4-8.2 [facility] Comment on above: Performed By: #### A 1C #### [facility] [address] [place] [address] Dr. Ambrosio Ramirez Sodium [Moles/Vol] 142 mmol/L Normal 136-145 [facility] Comment on above: Performed By: #### A 1C #### [facility] [address] [place] [address] Dr. Ambrosio Ramirez Urea nitrogen [Mass/Vol] 9.0 mg/dL Normal 7.0-18.0 [facility] Comment on above: Performed By: #### A 1C #### [facility] [address] [place] [address] Dr. Ambrosio Ramirez Urea nitrogen/Creatinine [Mass ratio] 16.7 mg/mg Normal [facility] Comment on above: Performed By: #### A 1C #### [facility] [address] [place], [place] [address] Dr. Ambrosio Ramirez TSHon 03-12-2022 TSH 1.934 uIU/mL Normal 0.358-3.740 [facility] Comment on above: Performed By: #### A 1C #### [facility] [address] [address] [address] Ambrosio Ramirez XR TSPINE 3 VIEWSon [...] CATALAN Date: 2022-03-12 17:07 Normal [facility]on SARS-CoV-2 (COVID-19) RNA JAYY+probe Ql (Unsp spec) Not detected Normal NOT DETECTED [facility] Comment on above: Result Comment: When [...] for this test is supported by the [employer] of [employer] and Human Service's declaration that [...] longer be used). Performed By: #### C VDTB #### [facility] [address] [place] [address] Dr. Ambrosio Ramirez INFLUENZA A AND B AGon 01-27 INFLUENZA A AG Negative Normal NEGATIVE SEE COMMENT [facility] Comment on above: Performed By: #### I NFLUAB #### [facility] [address] [place] [address] Dr. Ambrosio Ramirez INFLUENZA B AG Negative Normal NEGATIVE SEE COMMENT [facility] Comment on above: Performed By: #### I NFLUAB #### [facility] [address] [place] [address] Dr. Ambrosio Ramirez INTERNAL CONTROLS Within Normal Limits Normal Wi thin Normal Limits [facility] Comment on above: Performed By: #### I NFLUAB #### [facility] [address] [place] [address] Dr. Ambrosio Ramirez XR CHEST 2 Von [...] ROWE Date: 2022-01-27 14:42 Normal [facility] RPR QUANTon 08-26-2021 Rapid Plasma Reagin, Quant Non-Reactive Normal NonRea<1:1 [facility] Comment on above: Result Comment: Plea se Note: This test does not meet current guidelines for screening and diagnosis of syphilis. This test is intended for following treatment response in patients being treated for syphilis infection. To screen for syphilis infection, a reflex cascade that includes both RPR and a treponema-specific assay should be utilized, such as Treponema pallidum (Syphilis) Screening [employer] (080479) or Rapid Plasma Reagin (RPR) Test With Reflex to Quantitative RPR and Confirmatory Treponema pallidum Antibodies (638023). Performed By: #### R PRQ #### [facility] [address] [place] [address] Dr. Ambrosio Ramirez HEP B SURFACE ANTIGEN SCREEN on 08-24-2021 HBsAg Screen Negative Normal Negative [facility] Comment on above: Performed By: #### H BSANS #### [facility] [address] [place] [address] Dr. Ambrosio Ramirez HEPATITIS C ANTIBODYon 08-24 Hep C Virus Ab <0.1 Normal 0.0-0.9 [facility] Comment on above: Result Comment: Nega [...] Hepatitis C Virus (HCV) RNA, Diagnosis, JAYY (589874) and Hepatitis C Virus (HCV) Antibody with reflex to Quantitative Real-time PCR (293620). Performed By: #### H CV #### [facility] [address] [place] [address] Dr. Ambrosio Ramirez INSULINon 08-23-2021 Insulin 5.0 uIU/mL Normal 2.6-24.9 [facility] Comment on above: Performed By: #### A 1C #### [facility] [address] [place] [address] Dr. Ambrosio Ramirez OCC BLD IMMUNO SCREENon OCCULT BLOOD Negative Normal NEGATIVE [facility] Comment on above: Performed By: #### O BSCRN #### [facility] [address] [place] [address] Dr. Ambrosio Ramirez CBC AUTO DIFFon 08-22-2021 BASO # 0.1 103/ul Normal 0.0-0.1 [facility] Comment on above: Performed By: #### O BSCRN #### [facility] [address] [place] [address] Dr. Ambrosio Ramirez Basophils/100 WBC (Bld) 1.0 % Normal 0.2-2.0 [facility] Comment on above: Performed By: #### O BSCRN #### [facility] [address] [place] [address] Dr. Ambrosio Ramirez EO # 0.1 103/ul Normal 0.0-0.7 [facility] Comment on above: Performed By: #### O BSCRN #### [facility] [address] [place] [address] Dr. Ambrosio Ramirez Eosinophils/100 WBC (Bld) 1.8 % Normal 0.9-7.0 [facility] Comment on above: Performed By: #### O BSCRN #### [facility] [address] [place] [address] Dr. Ambrosio Ramirez Erythrocyte distribution width (RBC) [Ratio] 11.9 % Normal 11.0-15.0 [facility] Comment on above: Performed By: #### O BSCRN #### [facility] [address] [place] [address] Dr. Ambrosio Ramirez Hematocrit (Bld) [Volume fraction] 48.6 % Critically high 36.0-48.0 [facility] Comment on above: Performed By: #### O BSCRN #### [facility] [address] [place] [address] Dr. Ambrosio Ramirez Hemoglobin (Bld) [Mass/Vol] 16.3 g/dL Critically high 12.0-16.0 [facility] Comment on above: Performed By: #### O BSCRN #### [facility] [address] [place] [address] Dr. Ambrosio Ramirez IG # 0.03 10e3/ul Normal 0.00-0.03 [facility] Comment on above: Performed By: #### O BSCRN #### [facility] [address] [place] [address] Dr. Ambrosio Ramirez IG % 0.6 % Critically high 0.0-0.5 [facility] Comment on above: Performed By: #### O BSCRN #### [facility] [address] [place] [address] Dr. Ambrosio Ramirez LYMPH # 2.4 103/ul Normal 1.2-3.8 [facility] Comment on above: Performed By: #### O BSCRN #### [facility] [address] [place] [address] Dr. Ambrosio Ramirez Lymphocytes/100 WBC (Bld) 46.9 % Normal 20.5-60.0 [facility] Comment on above: Performed By: #### O BSCRN #### [facility] [address] [place] [address] Dr. Ambrosio Ramirez MANUAL DIFF REQ NO Normal [facility] Comment on above: Performed By: #### O BSCRN #### [facility] [address] [place] [address] Dr. Ambrosio Ramirez MCH (RBC) [Entitic mass] 34.9 pg Critically high 26.7-34.0 [facility] Comment on above: Performed By: #### O BSCRN #### [facility] [address] [place] [address] Dr. Ambrosio Ramirez MCHC (RBC) [Mass/Vol] 33.5 g/dL Normal 29.9-35.2 [facility] Comment on above: Performed By: #### O BSCRN #### [facility] [address] [place] [address] Dr. Ambrosio Ramirez MCV (RBC) [Entitic vol] 104.1 fL Critically high 81.0-99.0 [facility] Comment on above: Performed By: #### O BSCRN #### [facility] Laboratory [address] [place] [address] Dr. Ambrosio Ramirez MONO # 0.4 103/ul Normal 0.3-0.8 [facility] Comment on above: Performed By: #### O BSCRN #### [facility] Laboratory [address] [place] [address] Dr. Ambrosio Ramirez Monocytes/100 WBC (Bld) 8.2 % Normal 1.7-12.0 [facility] Comment on above: Performed By: #### O BSCRN #### [facility] Laboratory [address] [place] [address] Dr. Ambrosio Ramirez NEUT # 2.1 103/ul Normal 1.4-6.5 [facility] Comment on above: Performed By: #### O BSCRN #### [facility] Laboratory [address] [place] [address] Dr. Ambrosio Ramirez Neutrophils/100 WBC (Bld) 41.5 % Critically low 43.0-75.0 [facility] Comment on above: Performed By: #### O BSCRN #### [facility] Laboratory [address] [place] [address] Dr. Ambrosio Ramirez Platelet mean volume (Bld) [Entitic vol] 9.3 fL Critically low 9.5-13.5 [facility] Comment on above: Performed By: #### O BSCRN #### [facility] Laboratory [address] [place] [address] Dr. Ambrosio Ramirez PLT 210 103/ul Normal 150-450 [facility] Comment on above: Performed By: #### O BSCRN #### [facility] Laboratory [address] [place] [address] Dr. Ambrosio Ramirez RBC 4.67 106/ul Normal 4.20-5.40 [facility] Comment on above: Performed By: #### O BSCRN #### [facility] Laboratory [address] [place] [address] Dr. Ambrosio Ramirez WBC 5.0 103/ul Normal 4.0-11.0 [facility] Comment on above: Performed By: #### O BSCRN #### [facility] Laboratory [address] [place] [address] Dr. Ambrosio Ramirez FREE THYROXINE INDEX T7on -2021 FTI 2.72 Normal 1.30-4.50 [facility] Comment on above: Performed By: #### O BSCRN #### [facility] Laboratory [address] [place] [address] Dr. Ambrosio Ramirez T3U 32.0 % Normal 30.0-39.0 [facility] Comment on above: Performed By: #### O BSCRN #### [facility] Laboratory [address] [place] [address] Dr. Ambrosio Ramirez T4 [Mass/Vol] 8.50 ug/dL Normal 4.80-13.90 [facility] Comment on above: Performed By: #### O BSCRN #### [facility] Laboratory [address] [place] [address] Dr. Ambrosio Ramirez GLYCOHEMOGLOBIN A1Con 2021 ADA RECOMMENDATION SEE BELOW Normal [facility] Comment on above: Result Comment: ADA RECOMMENDED LIMIT 4.0 - 6.0 ADA THERAPEUTIC TARGET < 7.0 ACTION SUGGESTED > 7.0 Performed By: #### A 1C #### [facility] [address] [place] [address] Dr. Ambrosio Ramirez Glucose [Mass/Vol] 108 mg/dL Normal [facility] Comment on above: Performed By: #### A 1C #### [facility] Laboratory [address] [place] [address] Dr. Ambrosio Ramirez HbA1c (Bld) [Mass fraction] 5.4 % Normal 4.5-6.2 [facility] Comment on above: Performed By: #### A 1C #### [facility] [address] [place] [address] Dr. Ambrosio Ramirez HIV 1/2 RAPID (EXPOSURE ONLY )on 08-22-2021 HIV AB Negative Normal [facility] Comment on above: Performed By: #### A 1C #### [facility] [address] [place] [address] Dr. Ambrosio Ramirez HIV AG Negative Normal [facility] Comment on above: Performed By: #### A 1C #### [facility] [address] [place] [address] Dr. Ambrosio Ramirez INTERNAL CONTROLS Within Normal Limits Normal Wi thin Normal Limits [facility] Comment on above: Performed By: #### A 1C #### [facility] Laboratory [address] [place] [address] Dr. Ambrosio Ramirez RAPID HIV INFO SEE BELOW Normal [facility] Comment on above: Result Comment: This test is used for the initial screening of the exposure source. Confirmation of all results will be obtained through reference lab testing. Performed By: #### A 1C #### [facility] [address] [address] [address] Ambrosio Ramirez IRONon 08-22-2021 Iron [Mass/Vol] 137.0 ug/dL Normal 50.0-170.0 [facility] Comment on above: Performed By: #### I HAMLET #### [facility] [address] [address] [address] Ambrosio Ramirez LIPID PROFILEon 08-22-2021 CHOL-HDL RATIO NORM SEE BELOW Normal [facility] Comment on above: Result Comment: 3.3 - 4.4 LOW RISK 4.4 - 7.1 AVERAGE RISK 7.1 - 11.0 MODERATE RISK >11.0 HIGH RISK Performed By: #### O BSCRN #### [facility] [address] [address] [address] Ambrosio Ramirez Cholesterol [Mass/Vol] 251 mg/dL Critically high <=200 [facility] Comment on above: Performed By: #### O BSCRN #### [facility] [address] [address] [address] Ambrosio Ramirez Cholesterol in HDL [Mass/Vol] 67 mg/dL Critically high 40-60 [facility] Comment on above: Performed By: #### O BSCRN #### [facility] [address] [address] [address] Ambrosio Ramirez Cholesterol in LDL [Mass/Vol] 154.8 mg/dL Normal [facility] Comment on above: Performed By: #### O BSCRN #### [facility] [address] [address] [address] Ambrosio Ramirez Cholesterol.total/Cho lesterol in HDL [Mass ratio] 3.7 {ratio} Normal [facility] Comment on above: Performed By: #### O BSCRN #### [facility] [address] [place] [address] Dr. Ambrosio Ramirez HDL NORMAL > or = 60 mg/dl - LOW CARDIOVASCULAR RISK <40 mg/dl - HIGH CARDIOVASCULAR RISK Normal [facility] Comment on above: Performed By: #### O BSCRN #### [facility] [address] [address] [address] Ambrosio Ramirez LDL CALC NORMAL SEE BELOW Normal [facility] Comment on above: Result Comment: <100 mg/dl OPTIMAL 100 - 129 mg/dl NEAR OR ABOVE OPTIMAL 130 - 159 mg/dl BORDERLINE HIGH 160 - 189 mg/dl HIGH >190 mg/dl VERY HIGH Performed By: #### O BSCRN #### [facility] [address] [address] [address] Ambrosio Ramirez Triglyceride [Mass/Vol] 146 mg/dL Normal <=150 [facility] Comment on above: Performed By: #### O BSCRN #### [facility] [address] [address] [address] Ambrosio Ramirez VLDL CALC 29.2 mg/dL Normal [facility] Comment on above: Performed By: #### O BSCRN #### [facility] [address] [place] [address] Dr. Ambrosio Ramirez PROF 14(COMP METB)on 022 Albumin [Mass/Vol] 4.3 g/dL Normal 3.4-5.[address] [facility] Comment on above: Performed By: #### O BSCRN #### [facility] [address] [address] [address] Ambrosio Ramirez Albumin/Globulin [Mass ratio] 1.2 {ratio} Normal [facility] Comment on above: Performed By: #### O BSCRN #### [facility] [address] [address] [address] Ambrosio Ramirez ALP [Catalytic activity/Vol] 57 U/L Normal 46-116 [facility] Comment on above: Performed By: #### O BSCRN #### [facility] [address] [address] [address] Ambrosio Ramirez ALT [Catalytic activity/Vol] 56 U/L Normal 14-59 [facility] Comment on above: Performed By: #### O BSCRN #### [facility] [address] [address] [address] Ambrosio Ramirez Anion gap [Moles/Vol] 11.5 mmol/L Normal [facility] Comment on above: Performed By: #### O BSCRN #### [facility] [address] [address] [address] Ambrosio Ramirez AST [Catalytic activity/Vol] 75 U/L Critically high 15-37 [facility] Comment on above: Performed By: #### O BSCRN #### [facility] [address] [address] [address] Ambrosio Ramirez Bilirubin [Mass/Vol] 0.4 mg/dL Normal 0.2-1.0 [facility] Comment on above: Performed By: #### O BSCRN #### [facility] [address] [address] [address] Ambrosio Ramirez Calcium [Mass/Vol] 8.7 mg/dL Normal 8.5-10.[address] [facility] Comment on above: Performed By: #### O BSCRN #### [facility] [address] [place] [address] Dr. Ambrosio Ramirez Chloride [Moles/Vol] 105 mmol/L Normal 98-107 [facility] Comment on above: Performed By: #### O BSCRN #### [facility] [address] [place] [address] Dr. Ambrosio Ramirez CO2 [Moles/Vol] 30.3 mmol/L Normal 21.0-32.0 [facility] Comment on above: Performed By: #### O BSCRN #### [facility] [address] [place] [address] Dr. Ambrosio Ramirez Creatinine [Mass/Vol] 0.67 mg/dL Normal 0.55-1.02 [facility] Comment on above: Performed By: #### O BSCRN #### [facility] [address] [address] [address] Ambrosio Ramirez EGFR-AF KOSOVAN >60 Normal >=60 [facility] Comment on above: Performed By: #### O BSCRN #### [facility] [address] [address] [address] Ambrosio Ramirez EGFR-NON AF KOSOVAN >60 Normal >=60 [facility] Comment on above: Performed By: #### O BSCRN #### [facility] [address] [address] [address] Ambrosio Ramirez Globulin (S) [Mass/Vol] 3.7 g/dL Normal [facility] Comment on above: Performed By: #### O BSCRN #### [facility] [address] [address] [address] Ambrosio Ramirez Glucose [Mass/Vol] 93 mg/dL Normal 74-[address] [facility] Comment on above: Performed By: #### O BSCRN #### [facility] [address] [place] [address] Dr. Ambrosio Ramirez Potassium [Moles/Vol] 4.8 mmol/L Normal 3.5-5.1 [facility] Comment on above: Performed By: #### O BSCRN #### [facility] [address] [place] [address] Dr. Ambrosio Ramirez Protein [Mass/Vol] 8.0 g/dL Normal 6.4-8.2 [facility] Comment on above: Performed By: #### O BSCRN #### [facility] [address] [place] [address] Dr. Ambrosio Ramirez Sodium [Moles/Vol] 142 mmol/L Normal 136-[address] [facility] Comment on above: Performed By: #### O BSCRN #### [facility] [address] [place] [address] Dr. Ambrosio Ramirez Urea nitrogen [Mass/Vol] 8.0 mg/dL Normal 7.0-18.0 [facility] Comment on above: Performed By: #### O BSCRN #### [facility] [address] [place] [address] Dr. Ambrosio Ramirez Urea nitrogen/Creatinine [Mass ratio] 11.9 mg/mg Normal [facility] Comment on above: Performed By: #### O BSCRN #### [facility] [address] [place] [address] Dr. Ambrosio Ramirez TSHon 08-22-2021 TSH 2.117 uIU/mL Normal 0.358-3.740 [facility] Comment on above: Performed By: #### O BSCRN #### [facility] [address] [address] [address] Ambrosio Ramirez XR CSPINE MIN 4 [...] Cervical fusion hardware with no mechanical failure Yxzy-on-jvryqlon degenerative changes of the cervical thoracic spine Electronically authenticated by: GEORGE ROWE Date: 2021-08-22 21:07 Normal [facility] Vital Signs Date Time Vital Sign Value Performing Clinician Facility 05-09-2022 10:14-0400 Diastolic blood pressure 85 mm[Hg] FINAL INSPECTOR-C Ama Edwards Work Phone: [facility] 05-09-2022 10:14-0400 Heart rate 99 /min FINAL INSPECTOR-C Ama Edwards Work Phone: [facility] 05-09-2022 10:14-0400 Respiratory rate 18 /min FINAL INSPECTOR-C Ama Edwards Work Phone: [facility] 05-09-2022 10:14-0400 SaO2% (BldA) [Mass fraction] 99 % FINAL INSPECTOR-C Ama Edwards Work Phone: [facility] 05-09-2022 10:14-0400 Systolic blood pressure 124 mm[Hg] FINAL INSPECTOR-C Ama Edwards Work Phone: [facility] 05-09-2022 08:04-0400 Body height 180.34 cm FINAL INSPECTOR-C Ama Edwards Work Phone: [facility] 05-09-2022 08:04-0400 Body weight 58.96 kg FINAL INSPECTOR-C Ama Edwards Work Phone: [facility] 05-01-2022 11:15-0500 Body height Imad Asaad Other [facility] Other 05-01-2022 11:15-0500 Body mass index (BMI) [Ratio] 18.13 kg/m2 Imad Asaad Other [facility] Other 05-01-2022 11:15-0500 Body weight 58.97 kg Imad Asaad Other [facility] Other 05-01-2022 11:15-0500 Diastolic blood pressure 102 mm[Hg] Imad Asaad Other [facility] Other 05-01-2022 11:15-0500 Respiratory rate 16 /min Imad Asaad Other [facility] Other 05-01-2022 11:15-0500 Systolic blood pressure 158 mm[Hg] Imad Asaad Other [facility] Other Encounters Encounter Date Encounter Type Care Provider Facility Start: 12-22-2023 ambulatory LEIGH Sheehan ty:[facility] Start: 11-23-2023 ambulatory LEIGH CLARK Facility :[facility] Start: 09-21-2023 End: 09-21-2023 ambulatory Manuel Reynaga MD Facility:[facility] Start: 08-31-2023 End: 08-31-2023 ambulatory Manuel Reynaga MD Facility:[facility] Start: 08-17-2023 End: 08-17-2023 ambulatory Manuel Reynaga MD Facility: [facility] Start: 07-06-2023 End: 07-06-2023 ambulatory Manuel Reynaga MD Facility: [facility] Start: 12-15-2022 End: 12-15-2022 ambulatory Manuel Reynaga MD Facility:[facility] Start: 11-17-2022 End: 11-17-2022 ambulatory Manuel Reynaga MD Facility:[facility] Start: 11-10-2022 End: 11-10-2022 ambulatory Manuel Reynaga MD Facility:[facility] Start: 05-09-2022 End: 05-09-2022 ambulatory Ama Edwards Facility:[facility] Start: 05-09-2022 End: 05-09-2022 Admission to same day surgery center FINAL INSPECTOR-C Ama Edwards Work Phone: [facility] Work Phone: Start: 05-09-2022 End: 05-09-2022 ambulatory FINAL INSPECTOR-C Ama Edwards Work Phone: [facility] Work Phone: Start: 05-02-2022 End: 05-02-2022 ambulatory Imad Asaad Other [facility] Other Start: 05-02-2022 Telephone encounter Imad Asaad [facility] Start: 05-01-2022 End: 05-01-2022 ambulatory Imad Asaad Other [facility] Other Start: 05-01-2022 Office consultation new/estab patient [...] Procedure Detail Performing Clinician Start: 05-09-2022 Esophagogastroduodenoscopy FINAL INSPECTOR-C Ama patel Work Phone: Screening for malign ant neoplasm of colon Imad Asaad Other Plan of Treatment Date Care Activity Detail Author Start: 05-09-2022 [facility] Patient Education Colon Polyps H emorrhoids (DC) Diverticulosis (DC) Gastritis (DC) [facility] Work Phone: Payers Date Payer Category Payer Self-pay 2022 Unknown 1960 Unknown [id number] 2.16.84 [id number] 1960 Unknown [id number] 2.16.84 [id number] 1960 Unknown [id number] 2.16.84 [id number] 1960 Unknown [id number] 2.16.84 [id number] 1962 Unknown [id number] 2.16.84 [id number] 1962 Unknown [id number] 2.16.84 [id number] 1962 Unknown [id number] 2.16.84 [id number] 1962 Unknown [id number] 2.16. [id number] 1962 Unknown [id number] 2.16. [id number] 1962 Unknown [id number] 2.16. [id number] 1962 Unknown [id number] 2.16. 840.1.267062.3.579.2.196 1962 Unknown [id number] 2.16. [id number] 1962 Unknown [id number] 2.16. [id number] 1962 Unknown [id number] 2.16. [id number] 1957 Medicare [id number] 21 [id number] 1959 Unknown [id number] 1959 Unknown [id number] 1959 Unknown [id number] Unknown [id number] 2.16.8 [id number] Social History Date Type Detail Facility Start: 05-09-2022 Tobacco smoking status NHIS Smoker (finding) [facility] Start: 1960 Sex Assigned At Female F [facility] Sex Assigned At Sex Assigned At Bir th [facility] Other Goals Date Patient Goal Desired Activity /State Procedure note 05-09-2022 Note Date & Type Note Facility 05-09-2022 Procedure note [facility] Evaluation note 05-01-2022 Note Date & Type Note Facility 05-01-2022 Evaluation note Encounter Date Diagnosis Assessment Notes Apr, Dysphagia (ICD-10 - R13.10) Apr, Weight loss (ICD-10 - R63.4) Apr, Colon cancer screening (ICD-10 - Z12.11) [facility] Other Evaluation note Note Date & Type Note Facility Evaluation note No assessment information availa ble [facility] Work Phone: Evaluation note Note Date & Type Note Facility Evaluation note No Information [facility] Other History general Narrative - Reported Note Date & Type Note Facility History general Narrative - Reported Type Medical History Anxiety/Depression Surgical History Neck surgery Surgical History Tonsillectomy Hospitalization History See above [facility] Other Hospital Discharge instructions Note Date & [...] -Follow up with PCP. - Office number [phone]. [facility] Work Phone: Chief Complaint and [...] Dates Nesha Bryant MD Attending Provider Active Ama Edwards NP-C Primary Care Provider Active REASON FOR VISIT (unrecogniz ed section and content) PATIENT IS HERE AT THE [facility]QUE [facility] FOR DIARRHEA, WEIGHT LOSS AND DYSPHAGIAClinical INFORMATION SOURCE (unrecogn ized section and content) DATE CREATED AUTHOR 05/20/2022 [facility] DATE CREATED AUTHOR AUTHOR'S ORGANIZ ATION 07/02/2022 [facility] DATE CREATED AUTHOR AUTHOR'S ORGANIZ ATION 10/06/2023 [facility] DATE CREATED AUTHOR AUTHOR'S ORGANIZ ATION 11/24/2023 [facility] FOR RECORDS PERTAINING TO PATIENTS WHO ARE [...] BE BASED ON THE PRIMARY CLINICAL RECORDS. [facility] [facility]. provides no warranty or guarantee of the accuracy or completeness of information in this document.
--- NOTE | 2023-11-26 08:42 | US_ITS ---
[address] [address] Patient Name: CARLA ABDI MRN: [id number] date: 1960 Sex: F Assigned Patient Location: Current Patient Location: CT Accession/Order Number: [id number] Exam Date: 11/26/2023 08:45 Report Date: 11/26/2023 13:17 At the request of: SOLITARIO EDWARDS Procedure: US renal BI EXAMINATION: US renal BI HISTORY: Dysuria COMPARISON: No relevant comparison available. TECHNIQUE: Ultrasound examination was performed of the bladder. FINDINGS: Right Kidney: Normal in size, contour and echotexture. The cortex measures 0.9 cm. No solid cortical mass, hydronephrosis or obstructing nephrolithiasis Height: 5.03 cm Length: 10.51 cm Width: 6.29 cm Left Kidney: Normal in size, contour and echotexture. The cortex measures 0.9 cm. No solid cortical mass, hydronephrosis or obstructing nephrolithiasis Height: 5.31 cm Length: 9.10 cm Width: 5.42 cm Urinary bladder measures 4.2 x 9.5 x 7.3 cm. Prevoid volume 206 mL. Post void volume 83 mL Ureteral jets: Visualized bilaterally US/US renal BI IMPRESSION: Moderate post void urinary bladder residual of 83 mL Electronically authenticated by: GEORGE ROWE Date: 11/26/2023 13:17
--- NOTE | 2023-11-26 08:42 | MM_ITS ---
Patient Name: CARLA ABDI MR#: [id number] : 1960 Exam Date: 11/26/2023 Ordering Doctor: SOLITARIO EDWARDS CNP RADIOLOGY REPORT PROCEDURE: MM SCREENING MAMMO BI COMPARISON: None. INDICATIONS: Screening Calculator Name NCI Breast Cancer Risk Assessment Tool 5 Year Breast Cancer Risk Not Reported. Lifetime Breast Cancer Risk Not Reported. Personal Breast Cancer No Personal Ovarian Cancer No Treatments None Family Cancers None LOCATION: [facility] BREAST COMPOSITION: The breasts are heterogeneously dense,which may obscure small masses. FINDINGS: DIAGNOSTIC CATEGORY 0--INCOMPLETE: NEED ADDITIONAL IMAGING EVALUATION. The breasts are medium in size.Scattered benign-appearing calcifications are present. Scattered benign-appearing lymph nodes are present. RIGHT BREAST: Geographic round and pleomorphic microcalcifications in the upper outer quadrant. Spot magnification and ultrasound follow-up is recommended for further characterization and to determine possible modality for biopsy LEFT BREAST: No significant suspicious finding. RECOMMENDATIONS: ULTRASOUND: RIGHT BREAST ADDITIONAL MAMMOGRAPHIC VIEWS REQUIRED: RIGHT BREAST - spot magnification of geographic calcification PLEASE NOTE: A NORMAL MAMMOGRAM DOES NOT EXCLUDE THE POSSIBILITY OF BREAST CANCER. A CLINICALLY SUSPICIOUS PALPABLE LUMP SHOULD BE BIOPSIED. Dictated by: Bruce Crowe MD on 11/26/2023 at 12:10 Approved by: Bruce Crowe MD on 11/26/2023 at 12:18
== END 2023-11-26 08:36 | disposition home or self-care (01) ==
LOC: US 08:35
PROVIDERS: PCP Nurse Practitioner Family; Visit Provider Nurse Practitioner Family
DX: Z12.31 Encounter for screening mammogram for malignant neoplasm of breast (principal); R92.0 Mammographic microcalcification found on diagnostic imaging of breast; R92.1 Mammographic calcification found on diagnostic imaging of breast; R30.0 Dysuria
CPT/HCPCS: 76775; 77067

== ENCOUNTER 2023-11-26 08:36 | Outpatient (OUT) | payer MEDICARE, OTHER, MEDICAID, SELFPAY ==
--- OUTSIDE RECORDS SUMMARY | 2023-11-26 08:41 | XMS_ITS | CCD ---
Author Organization [facility] Care Team Providers Care Database Reporting Consultant Name Role Phone MD Nesha Bryant Attending Provider [phone] JIE Edwards Primary Care Provider [phone] Asaad, Imad Unavailable Ama Edwards Primary Care Unavailable Asaad, Imad Attending Unavailable Asaad, Imad Admitting Unavailable JERRY, AMA Attending Unavailable JERRY, AMA Consulting Unavailable JERRY, AMA Primary Care Unavailable JERRY, AMA Admitting Unavailable JERRY, AMA Attending Unavailable JERRY, AMA Primary Care Unavailable JERRY, AMA Admitting Unavailable PAULINO, LOLIS Admitting Unavailable PAULINO, LOLSI Attending Unavailable PAULINO, LOLIS Consulting Unavailable JERRY, [...] 30 days Apr, Active polyethylene glycol 3350 768948 mg / potassium chloride 2970 mg / sodium bicarbonate 6740 mg / sodium chloride 5860 mg / sodium sulfate 02547 mg powder for oral solution (2 sources) [...] Test Name Value Interpretation Reference Range Facility [facility] 05-09-2022 L Specimen: [id number] Received: 05/09/22 Status: EDUARD Zaragoza Num: [id number] Spec Type: Surgical Subm Dr: Nesha Bryant MD Tissues: A Gastric Biopsy (GASTRIC) B Esophagus Biopsy (DISTAL ESOPHAGUS) C Esophagus Biopsy (PROXIMAL ESOPHAGUS) D Colon Biopsy (CECAL POLYP) E Colon Biopsy (SIGMOID POLYP) F Colon Biopsy (RECTAL POLYPS X3) Procedures: /Sanya Jimenez/Lindsay L4/6 Age/ Patient Sex Location Account Attending Physician Nancy Joyce 61/F [id number] Nesha Bryant MD SPEC NUM: [id number] RECD: 05/09/22 STATUS: EDUARD ZARAGOZA NUM: [id number] KATY: 05/09/22- SUBM DR: Nesha Bryant MD ENTERED: 05/09/22-[address] [facility] [address]: SPEC TYPE: Surgical DEPT: [...] mucosal fold. - Negative for adenoma/dysplasia. Specimen: [id number] Received: 05/09/22-1039 Status: MANOLOZahra Zaragoza Num: [id number] Spec Type: Surgical Subm Dr: Nesha Bryant MD Tissues: A Gastric Biopsy (GASTRIC) B Esophagus Biopsy (DISTAL ESOPHAGUS) C Esophagus Biopsy (PROXIMAL ESOPHAGUS) D Colon Biopsy (CECAL POLYP) E Colon Biopsy (SIGMOID POLYP) F Colon Biopsy (RECTAL POLYPS X3) Procedures: HE/12, Gross/Micro L4/6 Patient: Nancy Joyce [id number] (Continued) Specimen: [id number] Received: 05/09/22 (Continued) Pathological Diagnosis (Continued) Signed (signature on file) Carin Oliveros MD 05/12/22 1130 Specimen: [id number] Received: 05/09/22 Status: EDUARD Nik Num: [id number] Spec Type: Surgical Subm Dr: Nesha Bryant MD Tissues: A Gastric Biopsy (GASTRIC) B Esophagus Biopsy (DISTAL ESOPHAGUS) C Esophagus Biopsy (PROXIMAL ESOPHAGUS) D Colon Biopsy (CECAL POLYP) E Colon Biopsy (SIGMOID POLYP) F Colon Biopsy (RECTAL POLYPS X3) Procedures: ROSI/Barbara, Gross/Micro L4/6 Patient: Nancy Joyce [id number] (Continued) Specimen: [id number] Received: 05/09/22-1039 (Continued) Pathological Diagnosis (Continued) E. [...] labeled 1. (more content not included)... Normal [facility] XR MODIFIED BARIUM SWALLOWon 03-25-2022 [...] by: DENNY RINCON Date: 2022-03-25 13:53 Normal [facility] INSULINon 03-13-2022 Insulin 3.9 uIU/mL Normal 2.6-24.9 [facility] Comment on above: Performed By: #### O BSCRN #### [facility] [address] [place] [address] Dr. Ambrosio Ramirez XR CSPINE MIN 4 [...] DENNY RINCON Date: 2022-03-13 08:09 Normal [facility] CBC AUTO DIFFon 03-12-2022 BASO # 0.0 103/ul Normal 0.0-0.1 [facility] Comment on above: Performed By: #### C BC #### [facility] [address] [place] [address] Dr. Ambrosio Ramirez Basophils/100 WBC (Bld) 0.7 % Normal 0.2-2.0 [facility] Comment on above: Performed By: #### C BC #### [facility] [address] [place] [address] Dr. Ambrosio Ramirez EO # 0.1 103/ul Normal 0.0-0.7 [facility] Comment on above: Performed By: #### C BC #### [facility] [address] [place] [address] Dr. Ambrosio Ramirez Eosinophils/100 WBC (Bld) 0.9 % Normal 0.9-7.0 [facility] Comment on above: Performed By: #### C BC #### [facility] [address] [place] [address] Dr. Ambrosio Ramirez Erythrocyte distribution width (RBC) [Ratio] 12.3 % Normal 11.0-15.0 [facility] Comment on above: Performed By: #### C BC #### [facility] [address] [place] [address] Dr. Ambrosio Ramirez Hematocrit (Bld) [Volume fraction] 46.0 % Normal 36.0-48.0 [facility] Comment on above: Performed By: #### C BC #### [facility] [address] [place] [address] Dr. Ambrosio Ramirez Hemoglobin (Bld) [Mass/Vol] 15.2 g/dL Normal 12.0-16.0 [facility] Comment on above: Performed By: #### C BC #### [facility] [address] [place] [address] Dr. Ambrosio Ramirez IG # 0.03 10e3/ul Normal 0.00-0.03 [facility] Comment on above: Performed By: #### C BC #### [facility] [address] [place] [address] Dr. Ambrosio Ramirez IG % 0.5 % Normal 0.0-0.5 [facility] Comment on above: Performed By: #### C BC #### [facility] [address] [place] [address] Dr. Ambrosio Ramirez LYMPH # 2.0 103/ul Normal 1.2-3.8 [facility] Comment on above: Performed By: #### C BC #### [facility] [address] [place] [address] Dr. Ambrosio Ramirez Lymphocytes/100 WBC (Bld) 35.0 % Normal 20.5-60.0 [facility] Comment on above: Performed By: #### C BC #### [facility] [address] [place] [address] Dr. Ambrosio Ramirez MANUAL DIFF REQ NO Normal [facility] Comment on above: Performed By: #### C BC #### [facility] [address] [place] [address] Dr. Ambrosio Ramirez MCH (RBC) [Entitic mass] 33.8 pg Normal 26.7-34.0 [facility] Comment on above: Performed By: #### C BC #### [facility] [address] [place] [address] Dr. Ambrosio Ramirez MCHC (RBC) [Mass/Vol] 33.0 g/dL Normal 29.9-35.2 [facility] Comment on above: Performed By: #### C BC #### [facility] [address] [place] [address] Dr. Ambrosio Ramirez MCV (RBC) [Entitic vol] 102.2 fL Critically high 81.0-99.0 [facility] Comment on above: Performed By: #### C BC #### [facility] [address] [place] [address] Dr. Ambrosio Ramirez MONO # 0.4 103/ul Normal 0.3-0.8 [facility] Comment on above: Performed By: #### C BC #### [facility] [address] [place] [address] Dr. Ambrosio Ramirez Monocytes/100 WBC (Bld) 7.2 % Normal 1.7-12.0 [facility] Comment on above: Performed By: #### C BC #### [facility] [address] [place] [address] Dr. Ambrosio Ramirez NEUT # 3.2 103/ul Normal 1.4-6.5 [facility] Comment on above: Performed By: #### C BC #### [facility] [address] [place] [address] Dr. Ambrosio Ramirez Neutrophils/100 WBC (Bld) 55.7 % Normal 43.0-75.0 [facility] Comment on above: Performed By: #### C BC #### [facility] [address] [address] [address] Ambrosio Ramirez Platelet mean volume (Bld) [Entitic vol] 9.1 fL Critically low 9.5-13.5 [facility] Comment on above: Performed By: #### C BC #### [facility] [address] [address] [address] Ambrosio Ramirez PLT 234 103/ul Normal 150-450 [facility] Comment on above: Performed By: #### C BC #### [facility] [address] [place] [address] Dr. Ambrosio Ramirez RBC 4.50 106/ul Normal 4.20-5.40 [facility] Comment on above: Performed By: #### C BC #### [facility] [address] [place] [address] Dr. Ambrosio Ramirez WBC 5.7 103/ul Normal 4.0-11.0 [facility] Comment on above: Performed By: #### C BC #### [facility] [address] [place] [address] Dr. Ambrosio Ramirez FREE THYROXINE INDEX T7on FTI 2.41 Normal 1.30-4.50 [facility] Comment on above: Performed By: #### A 1C #### [facility] [address] [place] [address] Dr. Ambrosio Ramirez T3U 33.0 % Normal 30.0-39.0 [facility] Comment on above: Performed By: #### A 1C #### [facility] [address] [place] [address] Dr. Ambrosio Ramirez T4 [Mass/Vol] 7.30 ug/dL Normal 4.80-13.90 [facility] Comment on above: Performed By: #### A 1C #### [facility] [address] [place] [address] Dr. Ambrosio Ramirez GLYCOHEMOGLOBIN A1Con 2022 ADA RECOMMENDATION SEE BELOW Normal [facility] Comment on above: Result Comment: ADA RECOMMENDED LIMIT 4.0 - 6.0 ADA THERAPEUTIC TARGET < 7.0 ACTION SUGGESTED > 7.0 Performed By: #### A 1C #### [facility] [address] [place] [address] Dr. Ambrosio Ramirez Glucose [Mass/Vol] 100 mg/dL Normal [facility] Comment on above: Performed By: #### A 1C #### [facility] [address] [address] [address] Ambrosio Ramirez HbA1c (Bld) [Mass fraction] 5.1 % Normal 4.5-6.2 [facility] Comment on above: Performed By: #### A 1C #### [facility] [address] [place] [address] Dr. Ambrosio Ramirez IRONon 03-12-2022 Iron [Mass/Vol] 148.0 ug/dL Normal 50.0-170.0 [facility] Comment on above: Performed By: #### O BSCRN #### [facility] [address] [place] [address] Dr. Ambrosio Ramirez LIPID PROFILEon 03-12-2022 CHOL-HDL RATIO NORM SEE BELOW Normal [facility] Comment on above: Result Comment: 3.3 - 4.4 LOW RISK 4.4 - 7.1 AVERAGE RISK 7.1 - 11.0 MODERATE RISK >11.0 HIGH RISK Performed By: #### A 1C #### [facility] [address] [place] [address] Dr. Ambrosio Ramirez Cholesterol [Mass/Vol] 234 mg/dL Critically high <=200 [facility] Comment on above: Performed By: #### A 1C #### [facility] [address] [place] [address] Dr. Ambrosio Ramirez Cholesterol in HDL [Mass/Vol] 71 mg/dL Critically high 40-60 [facility] Comment on above: Performed By: #### A 1C #### [facility] [address] [place] [address] Dr. Ambrosio Ramirez Cholesterol in LDL [Mass/Vol] 132.4 mg/dL Normal [facility] Comment on above: Performed By: #### A 1C #### [facility] [address] [address] [address] Ambrosio Ramirez Cholesterol.total/Cho lesterol in HDL [Mass ratio] 3.3 {ratio} Normal [facility] Comment on above: Performed By: #### A 1C #### [facility] [address] [address] [address] Ambrosio Ramirez HDL NORMAL > or = 60 mg/dl - LOW CARDIOVASCULAR RISK <40 mg/dl - HIGH CARDIOVASCULAR RISK Normal [facility] Comment on above: Performed By: #### A 1C #### [facility] [address] [address] [address] Ambrosio Ramirez LDL CALC NORMAL SEE BELOW Normal [facility] Comment on above: Result Comment: <100 mg/dl OPTIMAL 100 - 129 mg/dl NEAR OR ABOVE OPTIMAL 130 - 159 mg/dl BORDERLINE HIGH 160 - 189 mg/dl HIGH >190 mg/dl VERY HIGH Performed By: #### A 1C #### [facility] [address] [address] [address] Ambrosio Ramirez Triglyceride [Mass/Vol] 153 mg/dL Critically high <=150 [facility] Comment on above: Performed By: #### A 1C #### [facility] [address] [address] [address] Ambrosio Ramirez VLDL CALC 30.6 mg/dL Normal [facility] Comment on above: Performed By: #### A 1C #### [facility] [address] [address] [address] Ambrosio Ramirez PROF 14(COMP METB)on 023 Albumin [Mass/Vol] 4.2 g/dL Normal 3.4-5.0 [facility] Comment on above: Performed By: #### A 1C #### [facility] [address] [address] [address] Ambrosio Ramirez Albumin/Globulin [Mass ratio] 1.3 {ratio} Normal [facility] Comment on above: Performed By: #### A 1C #### [facility] [address] [address] [address] Ambrosio Ramirez ALP [Catalytic activity/Vol] 62 U/L Normal 46-116 [facility] Comment on above: Performed By: #### A 1C #### [facility] [address] [address] [address] Ambrosio Ramirez ALT [Catalytic activity/Vol] 27 U/L Normal 14-59 [facility] Comment on above: Performed By: #### A 1C #### [facility] [address] [address] [address] Ambrosio Ramirez Anion gap [Moles/Vol] 12.8 mmol/L Normal [facility] Comment on above: Performed By: #### A 1C #### [facility] [address] [address] [address] Ambrosio Ramirez AST [Catalytic activity/Vol] 39 U/L Critically high 15-37 [facility] Comment on above: Performed By: #### A 1C #### [facility] [address] [place] [address] Dr. Ambrosio Ramirez Bilirubin [Mass/Vol] 0.4 mg/dL Normal 0.2-1.0 [facility] Comment on above: Performed By: #### A 1C #### [facility] [address] [address] [address] Ambrosio Ramirez Calcium [Mass/Vol] 9.1 mg/dL Normal 8.5-10.1 [facility] Comment on above: Performed By: #### A 1C #### [facility] [address] [address] [address] Ambrosio Ramirez Chloride [Moles/Vol] 103 mmol/L Normal 98-107 [facility] Comment on above: Performed By: #### A 1C #### [facility] [address] [address] [address] Ambrosio Ramirez CO2 [Moles/Vol] 30.5 mmol/L Normal 21.0-32.0 [facility] Comment on above: Performed By: #### A 1C #### [facility] [address] [address] [address] Ambrosio Ramirez Creatinine [Mass/Vol] 0.54 mg/dL Critically low 0.55-1.02 [facility] Comment on above: Performed By: #### A 1C #### [facility] [address] [address] [address] Ambrosio Ramirez EGFR-AF SPANISH >60 Normal >=60 [facility] Comment on above: Performed By: #### A 1C #### [facility] [address] [address] [address] Ambrosio Ramirez EGFR-NON AF SPANISH >60 Normal >=60 [facility] Comment on above: Performed By: #### A 1C #### [facility] [address] [address] [address] Ambrosio Ramirez Globulin (S) [Mass/Vol] 3.3 g/dL Normal [facility] Comment on above: Performed By: #### A 1C #### [facility] [address] [place] [address] Dr. Ambrosio Ramirez Glucose [Mass/Vol] 88 mg/dL Normal 74-106 [facility] Comment on above: Performed By: #### A 1C #### [facility] [address] [address] [address] Ambrosio Ramirez Potassium [Moles/Vol] 4.3 mmol/L Normal 3.5-5.1 [facility] Comment on above: Performed By: #### A 1C #### [facility] [address] [place] [address] Dr. Ambrosio Ramirez Protein [Mass/Vol] 7.5 g/dL Normal 6.4-8.2 [facility] Comment on above: Performed By: #### A 1C #### [facility] [address] [place] [address] Dr. Ambrosio Ramirez Sodium [Moles/Vol] 142 mmol/L Normal 136-145 [facility] Comment on above: Performed By: #### A 1C #### [facility] [address] [place] [address] Dr. Ambrosio Ramirez Urea nitrogen [Mass/Vol] 9.0 mg/dL Normal 7.0-18.0 [facility] Comment on above: Performed By: #### A 1C #### [facility] [address] [place] [address] Dr. Ambrosio Ramirez Urea nitrogen/Creatinine [Mass ratio] 16.7 mg/mg Normal [facility] Comment on above: Performed By: #### A 1C #### [facility] [address] [place], [place] [address] Dr. Ambrosio Ramirez TSHon 03-12-2022 TSH 1.934 uIU/mL Normal 0.358-3.740 [facility] Comment on above: Performed By: #### A 1C #### [facility] [address] [address] [address] Ambrosio Ramirez XR TSPINE 3 VIEWSon [...] GEORGE CATALAN Date: 2022-03-12 17:07 Normal [facility]on SARS-CoV-2 (COVID-19) RNA JAYY+probe Ql (Unsp spec) Not detected Normal NOT DETECTED [facility] Comment on above: Result Comment: When [...] for this test is supported by the [place] of Health and Human Service's declaration that [...] used). Performed By: #### C VDTB #### [facility] [address] [place] [address] Dr. Ambrosio Ramirez INFLUENZA A AND B AGon 01-27 INFLUENZA A AG Negative Normal NEGATIVE SEE COMMENT [facility] Comment on above: Performed By: #### I NFLUAB #### [facility] [address] [place] [address] Dr. Ambrosio Ramirez INFLUENZA B AG Negative Normal NEGATIVE SEE COMMENT [facility] Comment on above: Performed By: #### I NFLUAB #### [facility] [address] [place] [address] Dr. Ambrosio Ramirez INTERNAL CONTROLS Within Normal Limits Normal Wi thin Normal Limits [facility] Comment on above: Performed By: #### I NFLUAB #### [facility] [address] [place] [address] Dr. Ambrosio Ramirez XR CHEST 2 Von [...] GEORGE ROWE Date: 2022-01-27 14:42 Normal [facility] RPR QUANTon 08-26-2021 Rapid Plasma Reagin, Quant Non-Reactive Normal NonRea<1:1 [facility] Comment on above: Result Comment: Plea se Note: This test does not meet current guidelines for screening and diagnosis of syphilis. This test is intended for following treatment response in patients being treated for syphilis infection. To screen for syphilis infection, a reflex cascade that includes both RPR and a treponema-specific assay should be utilized, such as Treponema pallidum (Syphilis) Screening [place] (012323) or Rapid Plasma Reagin (RPR) Test With Reflex to Quantitative RPR and Confirmatory Treponema pallidum Antibodies (467344). Performed By: #### R PRQ #### [facility] [address] [place] [address] Dr. Ambrosio Ramirez HEP B SURFACE ANTIGEN SCREEN on 08-24-2021 HBsAg Screen Negative Normal Negative [facility] Comment on above: Performed By: #### H BSANS #### [facility] [address] [place] [address] Dr. Ambrosio Ramirez HEPATITIS C ANTIBODYon 08-24 Hep C Virus Ab <0.1 Normal 0.0-0.9 [facility] Comment on above: Result Comment: Nega [...] Hepatitis C Virus (HCV) RNA, Diagnosis, JAYY (091883) and Hepatitis C Virus (HCV) Antibody with reflex to Quantitative Real-time PCR ([id number]). Performed By: #### H CV #### [facility] [address] [place] [address] Dr. Ambrosio Ramirez INSULINon 08-23-2021 Insulin 5.0 uIU/mL Normal 2.6-24.9 [facility] Comment on above: Performed By: #### A 1C #### [facility] [address] [place] [address] Dr. Ambrosio Ramirez OCC BLD IMMUNO SCREENon OCCULT BLOOD Negative Normal NEGATIVE [facility] Comment on above: Performed By: #### O BSCRN #### [facility] [address] [place] [address] Dr. Ambrosio Ramirez CBC AUTO DIFFon 08-22-2021 BASO # 0.1 103/ul Normal 0.0-0.1 [facility] Comment on above: Performed By: #### O BSCRN #### [facility] [address] [place] [address] Dr. Ambrosio Ramirez Basophils/100 WBC (Bld) 1.0 % Normal 0.2-2.0 [facility] Comment on above: Performed By: #### O BSCRN #### [facility] [address] [place] [address] Dr. Ambrosio Ramirez EO # 0.1 103/ul Normal 0.0-0.7 [facility] Comment on above: Performed By: #### O BSCRN #### [facility] [address] [place] [address] Dr. Ambrosio Ramirez Eosinophils/100 WBC (Bld) 1.8 % Normal 0.9-7.0 [facility] Comment on above: Performed By: #### O BSCRN #### [facility] [address] [place] [address] Dr. Ambrosio Ramirez Erythrocyte distribution width (RBC) [Ratio] 11.9 % Normal 11.0-15.0 [facility] Comment on above: Performed By: #### O BSCRN #### [facility] [address] [place] [address] Dr. Ambrosio Ramirez Hematocrit (Bld) [Volume fraction] 48.6 % Critically high 36.0-48.0 [facility] Comment on above: Performed By: #### O BSCRN #### [facility] [address] [place] [address] Dr. Ambrosio Ramirez Hemoglobin (Bld) [Mass/Vol] 16.3 g/dL Critically high 12.0-16.0 [facility] Comment on above: Performed By: #### O BSCRN #### [facility] [address] [place] [address] Dr. Ambrosio Ramirez IG # 0.03 10e3/ul Normal 0.00-0.03 [facility] Comment on above: Performed By: #### O BSCRN #### [facility] [address] [place] [address] Dr. Ambrosio Ramirez IG % 0.6 % Critically high 0.0-0.5 [facility] Comment on above: Performed By: #### O BSCRN #### [facility] [address] [place] [address] Dr. Ambrosio Ramirez LYMPH # 2.4 103/ul Normal 1.2-3.8 [facility] Comment on above: Performed By: #### O BSCRN #### [facility] [address] [place] [address] Dr. Ambrosio Ramirez Lymphocytes/100 WBC (Bld) 46.9 % Normal 20.5-60.0 [facility] Comment on above: Performed By: #### O BSCRN #### [facility] [address] [place] [address] Dr. Ambrosio Ramirez MANUAL DIFF REQ NO Normal [facility] Comment on above: Performed By: #### O BSCRN #### [facility] [address] [place] [address] Dr. Ambrosio Ramirez MCH (RBC) [Entitic mass] 34.9 pg Critically high 26.7-34.0 [facility] Comment on above: Performed By: #### O BSCRN #### [facility] [address] [place] [address] Dr. Ambrosio Ramirez MCHC (RBC) [Mass/Vol] 33.5 g/dL Normal 29.9-35.2 [facility] Comment on above: Performed By: #### O BSCRN #### [facility] [address] [place] [address] Dr. Ambrosio Ramirez MCV (RBC) [Entitic vol] 104.1 fL Critically high 81.0-99.0 [facility] Comment on above: Performed By: #### O BSCRN #### [facility] [address] [place] [address] Dr. Ambrosio Ramirez MONO # 0.4 103/ul Normal 0.3-0.8 [facility] Comment on above: Performed By: #### O BSCRN #### [facility] [address] [place] [address] Dr. Ambrosio Ramirez Monocytes/100 WBC (Bld) 8.2 % Normal 1.7-12.0 [facility] Comment on above: Performed By: #### O BSCRN #### [facility] [address] [place] [address] Dr. Ambrosio Ramirez NEUT # 2.1 103/ul Normal 1.4-6.5 [facility] Comment on above: Performed By: #### O BSCRN #### [facility] [address] [place] [address] Dr. Ambrosio Ramirez Neutrophils/100 WBC (Bld) 41.5 % Critically low 43.0-75.0 [facility] Comment on above: Performed By: #### O BSCRN #### [facility] [address] [place] [address] Dr. Ambrosio Ramirez Platelet mean volume (Bld) [Entitic vol] 9.3 fL Critically low 9.5-13.5 [facility] Comment on above: Performed By: #### O BSCRN #### [facility] [address] [place] [address] Dr. Ambrosio Ramirez PLT 210 103/ul Normal 150-450 [facility] Comment on above: Performed By: #### O BSCRN #### [facility] [address] [place] [address] Dr. Ambrosio Ramirez RBC 4.67 106/ul Normal 4.20-5.40 [facility] Comment on above: Performed By: #### O BSCRN #### [facility] [address] [place] [address] Dr. Ambrosio Ramirez WBC 5.0 103/ul Normal 4.0-11.0 [facility] Comment on above: Performed By: #### O BSCRN #### [facility] [address] [place] [address] Dr. Ambrosio Ramirez FREE THYROXINE INDEX T7on -2021 FTI 2.72 Normal 1.30-4.50 [facility] Comment on above: Performed By: #### O BSCRN #### [facility] [address] [place] [address] Dr. Ambrosio Ramirez T3U 32.0 % Normal 30.0-39.0 [facility] Comment on above: Performed By: #### O BSCRN #### [facility] [address] [place] [address] Dr. Ambrosio Ramirez T4 [Mass/Vol] 8.50 ug/dL Normal 4.80-13.90 [facility] Comment on above: Performed By: #### O BSCRN #### [facility] [address] [place] [address] Dr. Ambrosio Ramirez GLYCOHEMOGLOBIN A1Con 2021 ADA RECOMMENDATION SEE BELOW Normal [facility] Comment on above: Result Comment: ADA RECOMMENDED LIMIT 4.0 - 6.0 ADA THERAPEUTIC TARGET < 7.0 ACTION SUGGESTED > 7.0 Performed By: #### A 1C #### [facility] [address] [place] [address] Dr. Ambrosio Ramirez Glucose [Mass/Vol] 108 mg/dL Normal [facility] Comment on above: Performed By: #### A 1C #### [facility] [address] [place] [address] Dr. Ambrosio Ramirez HbA1c (Bld) [Mass fraction] 5.4 % Normal 4.5-6.2 [facility] Comment on above: Performed By: #### A 1C #### [facility] [address] [place] [address] Dr. Ambrosio Ramirez HIV 1/2 RAPID (EXPOSURE ONLY )on 08-22-2021 HIV AB Negative Normal [facility] Comment on above: Performed By: #### A 1C #### [facility] [address] [place] [address] Dr. Ambrosio Ramirez HIV AG Negative Normal [facility] Comment on above: Performed By: #### A 1C #### [facility] [address] [place] [address] Dr. Ambrosio Ramirez INTERNAL CONTROLS Within Normal Limits Normal Wi thin Normal Limits [facility] Comment on above: Performed By: #### A 1C #### [facility] [address] [place] [address] Dr. Ambrosio Ramirez RAPID HIV INFO SEE BELOW Normal [facility] Comment on above: Result Comment: This test is used for the initial screening of the exposure source. Confirmation of all results will be obtained through reference lab testing. Performed By: #### A 1C #### [facility] [address] [address] [address] Ambrosio Ramirez IRONon 08-22-2021 Iron [Mass/Vol] 137.0 ug/dL Normal 50.0-170.0 [facility] Comment on above: Performed By: #### I HAMLET #### [facility] [address] [address] [address] Ambrosio Ramirez LIPID PROFILEon 08-22-2021 CHOL-HDL RATIO NORM SEE BELOW Normal [facility] Comment on above: Result Comment: 3.3 - 4.4 LOW RISK 4.4 - 7.1 AVERAGE RISK 7.1 - 11.0 MODERATE RISK >11.0 HIGH RISK Performed By: #### O BSCRN #### [facility] [address] [address] [address] Ambrosio Ramirez Cholesterol [Mass/Vol] 251 mg/dL Critically high <=200 [facility] Comment on above: Performed By: #### O BSCRN #### [facility] [address] [address] [address] Ambrosio Ramirez Cholesterol in HDL [Mass/Vol] 67 mg/dL Critically high 40-60 [facility] Comment on above: Performed By: #### O BSCRN #### [facility] [address] [address] [address] Ambrosio Ramirez Cholesterol in LDL [Mass/Vol] 154.8 mg/dL Normal [facility] Comment on above: Performed By: #### O BSCRN #### [facility] [address] [address] [address] Ambrosio Ramirez Cholesterol.total/Cho lesterol in HDL [Mass ratio] 3.7 {ratio} Normal [facility] Comment on above: Performed By: #### O BSCRN #### [facility] [address] [place] [address] Dr. Ambrosio Ramirez HDL NORMAL > or = 60 mg/dl - LOW CARDIOVASCULAR RISK <40 mg/dl - HIGH CARDIOVASCULAR RISK Normal [facility] Comment on above: Performed By: #### O BSCRN #### [facility] [address] [address] [address] Ambrosio Ramirez LDL CALC NORMAL SEE BELOW Normal [facility] Comment on above: Result Comment: <100 mg/dl OPTIMAL 100 - 129 mg/dl NEAR OR ABOVE OPTIMAL 130 - 159 mg/dl BORDERLINE HIGH 160 - 189 mg/dl HIGH >190 mg/dl VERY HIGH Performed By: #### O BSCRN #### [facility] [address] [address] [address] Ambrosio Ramirez Triglyceride [Mass/Vol] 146 mg/dL Normal <=150 [facility] Comment on above: Performed By: #### O BSCRN #### [facility] [address] [address] [address] Ambrosio Ramirez VLDL CALC 29.2 mg/dL Normal [facility] Comment on above: Performed By: #### O BSCRN #### [facility] [address] [place] [address] Dr. Ambrosio Ramirez PROF 14(COMP METB)on 022 Albumin [Mass/Vol] 4.3 g/dL Normal 3.4-5.0 [facility] Comment on above: Performed By: #### O BSCRN #### [facility] [address] [address] [address] Ambrosio Ramirez Albumin/Globulin [Mass ratio] 1.2 {ratio} Normal [facility] Comment on above: Performed By: #### O BSCRN #### [facility] [address] [address] [address] Ambrosio Ramirez ALP [Catalytic activity/Vol] 57 U/L Normal 46-116 [facility] Comment on above: Performed By: #### O BSCRN #### [facility] [address] [address] [address] Ambrosio Ramirez ALT [Catalytic activity/Vol] 56 U/L Normal 14-59 [facility] Comment on above: Performed By: #### O BSCRN #### [facility] [address] [address] [address] Ambrosio Ramirez Anion gap [Moles/Vol] 11.5 mmol/L Normal [facility] Comment on above: Performed By: #### O BSCRN #### [facility] [address] [address] [address] Ambrosio Ramirez AST [Catalytic activity/Vol] 75 U/L Critically high 15-37 [facility] Comment on above: Performed By: #### O BSCRN #### [facility] [address] [address] [address] Ambrosio Ramirez Bilirubin [Mass/Vol] 0.4 mg/dL Normal 0.2-1.0 [facility] Comment on above: Performed By: #### O BSCRN #### [facility] [address] [address] [address] Ambrosio Ramirez Calcium [Mass/Vol] 8.7 mg/dL Normal 8.5-10.1 [facility] Comment on above: Performed By: #### O BSCRN #### [facility] [address] [place] [address] Dr. Ambrosio Ramirez Chloride [Moles/Vol] 105 mmol/L Normal 98-107 [facility] Comment on above: Performed By: #### O BSCRN #### [facility] [address] [place] [address] Dr. Ambrosio Ramirez CO2 [Moles/Vol] 30.3 mmol/L Normal 21.0-32.0 [facility] Comment on above: Performed By: #### O BSCRN #### [facility] [address] [place] [address] Dr. Ambrosio Ramirez Creatinine [Mass/Vol] 0.67 mg/dL Normal 0.55-1.02 [facility] Comment on above: Performed By: #### O BSCRN #### [facility] [address] [address] [address] Ambrosio Ramirez EGFR-AF SPANISH >60 Normal >=60 [facility] Comment on above: Performed By: #### O BSCRN #### [facility] [address] [address] [address] Ambrosio Ramirez EGFR-NON AF SPANISH >60 Normal >=60 [facility] Comment on above: Performed By: #### O BSCRN #### [facility] [address] [address] [address] Ambrosio Ramirez Globulin (S) [Mass/Vol] 3.7 g/dL Normal [facility] Comment on above: Performed By: #### O BSCRN #### [facility] [address] [address] [address] Ambrosio Ramirez Glucose [Mass/Vol] 93 mg/dL Normal 74-106 [facility] Comment on above: Performed By: #### O BSCRN #### [facility] [address] [place] [address] Dr. Ambrosio Ramirez Potassium [Moles/Vol] 4.8 mmol/L Normal 3.5-5.1 [facility] Comment on above: Performed By: #### O BSCRN #### [facility] [address] [place] [address] Dr. Ambrosio Ramirez Protein [Mass/Vol] 8.0 g/dL Normal 6.4-8.2 [facility] Comment on above: Performed By: #### O BSCRN #### [facility] [address] [place] [address] Dr. Ambrosio Ramirez Sodium [Moles/Vol] 142 mmol/L Normal 136-145 [facility] Comment on above: Performed By: #### O BSCRN #### [facility] [address] [place] [address] Dr. Ambrosio Ramirez Urea nitrogen [Mass/Vol] 8.0 mg/dL Normal 7.0-18.0 [facility] Comment on above: Performed By: #### O BSCRN #### [facility] [address] [place] [address] Dr. Ambrosio Ramirez Urea nitrogen/Creatinine [Mass ratio] 11.9 mg/mg Normal [facility] Comment on above: Performed By: #### O BSCRN #### [facility] [address] [place] [address] Dr. Ambrosio Ramirez TSHon 08-22-2021 TSH 2.117 uIU/mL Normal 0.358-3.740 [facility] Comment on above: Performed By: #### O BSCRN #### [facility] [address] [address] [address] 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 Electronically authenticated by: GEORGE ROWE Date: 2021-08-22 21:07 Normal [facility] Vital Signs Date Time Vital Sign Value Performing Clinician Facility 05-09-2022 10:14-0400 Diastolic blood pressure 85 mm[Hg] BLURB WRITER-C Ama Edwards Work Phone: [facility] 05-09-2022 10:14-0400 Heart rate 99 /min BLUR[employer] WRITER[employer]C Ama Edwards Work Phone: [facility] 05-09-2022 10:14-0400 Respiratory rate 18 /min BLUR[employer] WRITER-C Ama Edwards Work Phone: [facility] 05-09-2022 10:14-0400 SaO2% (BldA) [Mass fraction] 99 % BLURB WRITER-C Ama Edwards Work Phone: [facility] 05-09-2022 10:14-0400 Systolic blood pressure 124 mm[Hg] BLURB WRITER-C Ama Edwards Work Phone: [facility] 05-09-2022 08:04-0400 Body height 180.34 cm BLURB WRITER-C Ama Edwards Work Phone: [facility] 05-09-2022 08:04-0400 Body weight 58.96 kg [employer]UR[employer] WRITER-C Ama Edwards Work Phone: [facility] 05-01-2022 11:15-0500 Body height Imad Asaad Other [facility] Other 05-01-2022 11:15-0500 Body mass index (BMI) [Ratio] 18.13 kg/m2 Imad Asaad Other [facility] Other 05-01-2022 11:15-0500 Body weight 58.97 kg Imad Asaad Other [facility] Other 05-01-2022 11:15-0500 Diastolic blood pressure 102 mm[Hg] Imad Asaad Other [facility] Other 05-01-2022 11:15-0500 Respiratory rate 16 /min Imad Asaad Other [facility] Other 05-01-2022 11:15-0500 Systolic blood pressure 158 mm[Hg] Imad Asaad Other [facility] Other Encounters Encounter Date Encounter Type Care [...] Start: 05-09-2022 End: 05-09-2022 ambulatory Ama Edwards Facility:[facility] Start: 05-09-2022 End: 05-09-2022 Admission to same day surgery center [facility]UR[employer] WRITER-C Ama Edwards Work Phone: [facility] Work Phone: Start: 05-09-2022 End: 05-09-2022 ambulatory BLURB WRITER-C Ama Edwards Work Phone: [facility] Work Phone: Start: 05-02-2022 End: 05-02-2022 ambulatory Imad Asaad Other [facility] Other Start: 05-02-2022 Telephone encounter Imad Asaad [facility] Start: 05-01-2022 End: 05-01-2022 ambulatory Imad Asaad Other [facility] Other Start: 05-01-2022 Office consultation new/estab patient 60 min Imad Asaad [facility] Start: 03-25-2022 End: 03-26-2022 ambulatory MAA EDWARDS Facility:[facility] Start: 03-12-2022 End: 03-13-2022 ambulatory AMA EDWARDS Facility:[facility] Start: 01-27-2022 End: 01-28-[address] GEORGE ROWE Facility:[facility] Start: 09-12-2021 ambulatory AMA EDWARDS Facility: [facility] Start: 08-23-2021 End: 08-23-2021 ambulatory AMA EDWARDS Facility:[facility] Start: 08-23-2021 End: 08-23-2021 ambulatory LOLIS BOB Facility:[facility] Start: 08-22-2021 End: 08-23-2021 ambulatory AMA EDWARDS Facility:[facility] Procedures Date Procedure Procedure Detail Performing Clinician Start: 05-09-2022 Esophagogastroduodenoscopy [employer]UR[employer] WRITER-C Ama patel Work Phone: Screening for malign ant neoplasm of colon Imad Asaad Other Plan of Treatment Date Care Activity Detail Author Start: 05-09-2022 [facility] Patient Education Colon Polyps H emorrhoids (DC) Diverticulosis (DC) Gastritis (DC) [facility] Work Phone: Payers Date Payer Category Payer Self-pay 2022 Unknown 1960 Unknown [id number] 2.16.84 [id number] 1960 Unknown [id number] 2.16.84 [id number] 1960 Unknown [id number] 2.16.84 [id number] 1960 Unknown [id number] 2.16.84 [id number] 1960 Unknown [id number] 2.16.84 [id number] 1960 Unknown [id number] 2.16.84 [id number] 1960 Unknown [id number] 2.16.84 0.1.180701.3.579.2.593 1960 Unknown [id number] 2.16. [id number] 1960 Unknown [id number] 2.16. [id number] 1960 Unknown [id number] 2.16. [id number] 1960 Unknown [id number] 2.16. 840.1.821431.3.579.2.196 1960 Unknown [id number] 2.16. 840.1.702922.3.579.2.196 1960 Unknown [id number] 2.16. 840.1.915750.3.579.2.196 1960 Unknown [id number] 2.16. [id number] 1957 Medicare [id number] 1957 Unknown [id number] 1957 Unknown [id number] 1957 Unknown [id number] Unknown [id number] 2.16.8 [id number] Social History Date Type Detail Facility Start: 05-09-2022 Tobacco smoking status NHIS Smoker (finding) [facility] Start: 1960 Sex Assigned At Female F [facility] Sex Assigned At Sex Assigned At Bir th [facility] Other Goals Date Patient Goal Desired Activity /State Procedure note 05-09-2022 Note Date & Type Note Facility 05-09-2022 Procedure note [facility] Evaluation note 05-01-2022 Note Date & Type Note Facility 05-01-2022 Evaluation note Encounter Date Diagnosis Assessment Notes Apr, Dysphagia (ICD-10 - R13.10) Apr, Weight loss (ICD-10 - R63.4) Apr, Colon cancer screening (ICD-10 - Z12.11) [facility] Other Evaluation note Note Date & Type Note Facility Evaluation note No assessment information availa ble [facility] Work Phone: Evaluation note Note Date & Type Note Facility Evaluation note No Information [facility] Other History general Narrative - Reported Note Date & Type Note Facility History general Narrative - Reported Type Medical History Anxiety/Depression Surgical History Neck surgery Surgical History Tonsillectomy Hospitalization History See above [facility] Other Hospital Discharge instructions Note Date & [...] -Follow up with PCP. - Office number [phone]. [facility] Work Phone: Chief Complaint and [...] section and content) DATE CREATED AUTHOR 05/20/2022 [facility] DATE CREATED AUTHOR AUTHOR'S ORGANIZ ATION 07/02/[address] [facility] DATE CREATED AUTHOR AUTHOR'S ORGANIZ ATION 10/06/2023 [facility] DATE CREATED AUTHOR AUTHOR'S ORGANIZ ATION 11/24/2023 [facility] FOR RECORDS PERTAINING TO PATIENTS WHO [...] BE BASED ON THE PRIMARY CLINICAL RECORDS. [employer] [facility]. provides no warranty or guarantee of the accuracy or completeness of information in this document.
--- NOTE | 2023-11-26 08:45 | CT_ITS ---
[address] [address] Patient Name: CARLA ABDI MRN: [facility]:[id number] date: 1960 Sex: F Assigned Patient Location: CT Current Patient Location: [place] Accession/Order Number: [id number] Exam Date: 11/26/2023 09:45 Report Date: 11/26/2023 12:44 At the request of: SHAD REID Procedure: CT cervical spine wo con EXAM: CT cervical spine wo con CLINICAL INDICATION: Spinal Stenosis, Aftercare Following Surgery COMPARISON: MRI cervical spine 07/24/2023. TECHNIQUE: Axial CT images of the cervical spine were obtained without intravenous contrast. Coronal and sagittal reformatted images were also reviewed. Dose reduction techniques were achieved by using automated exposure control and/or adjustment of mA and/or kV according to patient size and/or use of iterative reconstruction technique. FINDINGS: Osseous Mineralization: Diffuse osseous demineralization limits evaluation of fine osseous detail. Trauma: No definite fracture, traumatic malalignment, facet dislocation, or discrete epidural hemorrhage. Alignment: Normal craniocervical and cervicothoracic junctions. Straightening of the physiologic cervical lordosis and slight anterior subluxation of C2 on C3 and C7 on T1 could relate at least in part to patient positioning. Vertebral Body Heights: Maintained. Spondylotic Changes: Multilevel spondylotic changes include varying degrees of intervertebral disc height loss, osteophytic ridging, endplate sclerosis, and facet/uncovertebral joint hypertrophy. Postoperative Changes: Intact ACDF and posterior instrumented fusion from C4 to C7. Hardware is intact and screws are well seated. Interbody fusion of the levels. Soft Tissues: Normal. Other: Clear visualized lung apices. Airway is patent. Scattered vascular calcifications. CT/CT cervical spine wo con IMPRESSION: 1. No acute osseous abnormalities in the cervical spine. 2. Multilevel spondylotic changes. 3. Intact ACDF and posterior instrumented fusion from C4 to C7. No evidence of hardware complication. Electronically authenticated by: ELIZABETH STEVENS Date: 11/26/2023 12:44
== END 2023-11-26 08:37 | disposition home or self-care (01) ==
LOC: CT 08:36
PROVIDERS: PCP Nurse Practitioner Family; Visit Provider Orthopaedic Surgery Orthopaedic Surgery of the Spine
DX: Z12.31 Encounter for screening mammogram for malignant neoplasm of breast (principal); R92.0 Mammographic microcalcification found on diagnostic imaging of breast; R92.1 Mammographic calcification found on diagnostic imaging of breast; R30.0 Dysuria; M48.02 Spinal stenosis, cervical region; Z47.89 Encounter for other orthopedic aftercare
CPT/HCPCS: 72125; 76775; 77067

== ENCOUNTER 2023-12-09 14:23 | Outpatient (OUT) | payer MEDICARE, OTHER, MEDICAID, SELFPAY ==
--- NOTE | 2023-12-09 14:26 | US_ITS ---
Patient Name: CARLA ABDI MR#: [id number] : 1960 Exam Date: 12/09/2023 Ordering Doctor: SOLITARIO EDWARDS CNP RADIOLOGY REPORT PROCEDURE: MM DIAGNOSTIC MAMMO UNILAT RT, 12/09/2023, 14:24 US BREAST RT LIMITED, 12/09/2023, 14:37 COMPARISON: MM SCREENING MAMMO BI, 11/26/2023. INDICATIONS: Abnormal Mammogram Calculator Name NCI Breast Cancer Risk Assessment Tool 5 Year Breast Cancer Risk Not Reported. Lifetime Breast Cancer Risk Not Reported. Personal Breast Cancer No Personal Ovarian Cancer No Treatments None Family Cancers None LOCATION: [facility] BREAST COMPOSITION: The breasts are heterogeneously dense,which may obscure small masses. FINDINGS: DIAGNOSTIC CATEGORY 4--SUSPICIOUS FOR MALIGNANCY. FINDING DOES NOT EXHIBIT CLASSIC FINDINGS OF BREAST CANCER: Spot magnification demonstrate a segmental distribution of pleomorphic calcifications in the upper outer quadrant. Ultrasound demonstrates scattered punctate calcifications. Given the asymmetry and suspicious appearance, stereotactic breast biopsy is recommended for further evaluation RECOMMENDATIONS: STEREOTACTIC BREAST BIOPSY: RIGHT BREAST PLEASE NOTE: A NORMAL MAMMOGRAM DOES NOT EXCLUDE THE POSSIBILITY OF BREAST CANCER. A CLINICALLY SUSPICIOUS PALPABLE LUMP SHOULD BE BIOPSIED. Dictated by: Bruce Crowe MD on 12/09/2023 at 14:52 Approved by: Bruce Crowe MD on 12/09/2023 at 14:58
--- OUTSIDE RECORDS SUMMARY | 2023-12-09 14:30 | XMS_ITS | CCD ---
Author Organization [facility] Care Team Providers Care Upkeep Worker Name Role Phone MD Nesha Bryant Attending [...] 30 days Apr, Active polyethylene glycol 3350 [id number] mg / potassium chloride 2970 mg / sodium bicarbonate 6740 mg / sodium chloride 5860 mg / sodium sulfate 86795 mg powder for oral solution (2 sources) [...] Test Name Value Interpretation Reference Range Facility [facility] 05-09-2022 L Specimen: [id number] Received: 05/09/22 Status: EDUARD Zaragoza Num: [id number] Spec Type: Surgical Subm Dr: Nesha Bryant MD Tissues: A Gastric Biopsy (GASTRIC) B Esophagus Biopsy (DISTAL ESOPHAGUS) C Esophagus Biopsy (PROXIMAL ESOPHAGUS) D Colon Biopsy (CECAL POLYP) E Colon Biopsy (SIGMOID POLYP) F Colon Biopsy (RECTAL POLYPS X3) Procedures: /Sanya Jimenez/Lindsay L4/6 Age/ Patient Sex Location Account Attending Physician Nancy Joyce 61/F [id number] Nesha Bryant MD SPEC NUM: [id number] RECD: 05/09/22 STATUS: EDUARD ZARAGOZA NUM: [id number] KATY: 05/09/22- SUBM DR: Nesha Bryant MD ENTERED: 05/09/22-10[address] [facility] DR: SPEC TYPE: Surgical DEPT: [...] mucosal fold. - Negative for adenoma/dysplasia. Specimen: [id number] Received: 05/09/22-1039 Status: MANOLOZahra Zaragoza Num: [id number] Spec Type: Surgical Subm Dr: Nesha Bryant MD Tissues: A Gastric Biopsy (GASTRIC) B Esophagus Biopsy (DISTAL ESOPHAGUS) C Esophagus Biopsy (PROXIMAL ESOPHAGUS) D Colon Biopsy (CECAL POLYP) E Colon Biopsy (SIGMOID POLYP) F Colon Biopsy (RECTAL POLYPS X3) Procedures: HE/12, Gross/Micro L4/6 Patient: Nancy Joyce [id number] (Continued) Specimen: [id number] Received: 05/09/22 (Continued) Pathological Diagnosis (Continued) Signed (signature on file) Carin Oliveros MD 05/12/22 1130 Specimen: [id number] Received: 05/09/22 Status: EDUARD Nik Num: [id number] Spec Type: Surgical Subm Dr: Nesha Bryant MD Tissues: A Gastric Biopsy (GASTRIC) B Esophagus Biopsy (DISTAL ESOPHAGUS) C Esophagus Biopsy (PROXIMAL ESOPHAGUS) D Colon Biopsy (CECAL POLYP) E Colon Biopsy (SIGMOID POLYP) F Colon Biopsy (RECTAL POLYPS X3) Procedures: ROSI/Barbara, Gross/Micro L4/6 Patient: Nancy Joyce [id number] (Continued) Specimen: [id number] Received: 05/09/22-1039 (Continued) Pathological Diagnosis (Continued) E. [...] labeled 1. (more content not included)... Normal [facility] XR MODIFIED BARIUM SWALLOWon 03-25-2022 XR MODIFIED [...] by: DENNY RINCON Date: 2022-03-25 13:53 Normal [facility] INSULINon 03-13-2022 Insulin 3.9 uIU/mL Normal 2.6-24.9 [facility] Comment on above: Performed By: #### O BSCRN #### [facility] [address] [place] [address] Dr. Ambrosio Ramirez XR CSPINE MIN 4 [...] DENNY RINCON Date: 2022-03-13 08:09 Normal [facility] CBC AUTO DIFFon 03-12-2022 BASO # 0.0 103/ul Normal 0.0-0.1 [facility] Comment on above: Performed By: #### C BC #### [facility] [address] [place] [address] Dr. Ambrosio Ramirez Basophils/100 WBC (Bld) 0.7 % Normal 0.2-2.0 [facility] Comment on above: Performed By: #### C BC #### [facility] [address] [place] [address] Dr. Ambrosio Ramirez EO # 0.1 103/ul Normal 0.0-0.7 [facility] Comment on above: Performed By: #### C BC #### [facility] [address] [place] [address] Dr. Ambrosio Ramirez Eosinophils/100 WBC (Bld) 0.9 % Normal 0.9-7.0 [facility] Comment on above: Performed By: #### C BC #### [facility] [address] [place] [address] Dr. Ambrosio Ramirez Erythrocyte distribution width (RBC) [Ratio] 12.3 % Normal 11.0-15.0 [facility] Comment on above: Performed By: #### C BC #### [facility] [address] [place] [address] Dr. Ambrosio Ramirez Hematocrit (Bld) [Volume fraction] 46.0 % Normal 36.0-48.0 [facility] Comment on above: Performed By: #### C BC #### [facility] [address] [place] [address] Dr. Ambrosio Ramirez Hemoglobin (Bld) [Mass/Vol] 15.2 g/dL Normal 12.0-16.0 [facility] Comment on above: Performed By: #### C BC #### [facility] [address] [place] [address] Dr. Ambrosio Ramirez IG # 0.03 10e3/ul Normal 0.00-0.03 [facility] Comment on above: Performed By: #### C BC #### [facility] [address] [place] [address] Dr. Ambrosio Ramirez IG % 0.5 % Normal 0.0-0.5 [facility] Comment on above: Performed By: #### C BC #### [facility] [address] [place] [address] Dr. Ambrosio Ramirez LYMPH # 2.0 103/ul Normal 1.2-3.8 [facility] Comment on above: Performed By: #### C BC #### [facility] [address] [place] [address] Dr. Ambrosio Ramirez Lymphocytes/100 WBC (Bld) 35.0 % Normal 20.5-60.0 [facility] Comment on above: Performed By: #### C BC #### [facility] [address] [place] [address] Dr. Ambrosio Ramirez MANUAL DIFF REQ NO Normal [facility] Comment on above: Performed By: #### C BC #### [facility] [address] [place] [address] Dr. Ambrosio Ramirez MCH (RBC) [Entitic mass] 33.8 pg Normal 26.7-34.0 [facility] Comment on above: Performed By: #### C BC #### [facility] [address] [place] [address] Dr. Ambrosio Ramirez MCHC (RBC) [Mass/Vol] 33.0 g/dL Normal 29.9-35.2 [facility] Comment on above: Performed By: #### C BC #### [facility] [address] [place] [address] Dr. Ambrosio Ramirez MCV (RBC) [Entitic vol] 102.2 fL Critically high 81.0-99.0 [facility] Comment on above: Performed By: #### C BC #### [facility] [address] [place] [address] Dr. Ambrosio Ramriez MONO # 0.4 103/ul Normal 0.3-0.8 [facility] Comment on above: Performed By: #### C BC #### [facility] [address] [place] [address] Dr. Ambrosio Ramirez Monocytes/100 WBC (Bld) 7.2 % Normal 1.7-12.0 [facility] Comment on above: Performed By: #### C BC #### [facility] [address] [place] [address] Dr. Ambrosio Ramirez NEUT # 3.2 103/ul Normal 1.4-6.5 [facility] Comment on above: Performed By: #### C BC #### [facility] [address] [place] [address] Dr. Ambrosio Ramirez Neutrophils/100 WBC (Bld) 55.7 % Normal 43.0-75.0 [facility] Comment on above: Performed By: #### C BC #### [facility] [address] [address] [address] Ambrosio Ramirez Platelet mean volume (Bld) [Entitic vol] 9.1 fL Critically low 9.5-13.5 [facility] Comment on above: Performed By: #### C BC #### [facility] [address] [address] [address] Ambrosio Ramirez PLT 234 103/ul Normal 150-450 [facility] Comment on above: Performed By: #### C BC #### [facility] [address] [place] [address] Dr. Ambrosio Ramirez RBC 4.50 106/ul Normal 4.20-5.40 [facility] Comment on above: Performed By: #### C BC #### [facility] [address] [place] [address] Dr. Ambrosio Ramirez WBC 5.7 103/ul Normal 4.0-11.0 [facility] Comment on above: Performed By: #### C BC #### [facility] [address] [place] [address] Dr. Ambrosio Ramirez FREE THYROXINE INDEX T7on FTI 2.41 Normal 1.30-4.50 [facility] Comment on above: Performed By: #### A 1C #### [facility] [address] [place] [address] Dr. Ambrosio Ramirez T3U 33.0 % Normal 30.0-39.0 [facility] Comment on above: Performed By: #### A 1C #### [facility] [address] [place] [address] Dr. Ambrosio Ramirez T4 [Mass/Vol] 7.30 ug/dL Normal 4.80-13.90 [facility] Comment on above: Performed By: #### A 1C #### [facility] [address] [place] [address] Dr. Ambrosio Ramirez GLYCOHEMOGLOBIN A1Con 2022 ADA RECOMMENDATION SEE BELOW Normal [facility] Comment on above: Result Comment: ADA RECOMMENDED LIMIT 4.0 - 6.0 ADA THERAPEUTIC TARGET < 7.0 ACTION SUGGESTED > 7.0 Performed By: #### A 1C #### [facility] [address] [place] [address] Dr. Ambrosio Ramirez Glucose [Mass/Vol] 100 mg/dL Normal [facility] Comment on above: Performed By: #### A 1C #### [facility] [address] [address] [address] Ambrosio Ramirez HbA1c (Bld) [Mass fraction] 5.1 % Normal 4.5-6.2 [facility] Comment on above: Performed By: #### A 1C #### [facility] [address] [place] [address] Dr. Ambrosio Ramirez IRONon 03-12-2022 Iron [Mass/Vol] 148.0 ug/dL Normal 50.0-170.0 [facility] Comment on above: Performed By: #### O BSCRN #### [facility] [address] [place] [address] Dr. Ambrosio Ramirez LIPID PROFILEon 03-12-2022 CHOL-HDL RATIO NORM SEE BELOW Normal [facility] Comment on above: Result Comment: 3.3 - 4.4 LOW RISK 4.4 - 7.1 AVERAGE RISK 7.1 - 11.0 MODERATE RISK >11.0 HIGH RISK Performed By: #### A 1C #### [facility] [address] [place] [address] Dr. Ambrosio Ramirez Cholesterol [Mass/Vol] 234 mg/dL Critically high <=200 [facility] Comment on above: Performed By: #### A 1C #### [facility] [address] [place] [address] Dr. Ambrosio Ramirez Cholesterol in HDL [Mass/Vol] 71 mg/dL Critically high 40-60 [facility] Comment on above: Performed By: #### A 1C #### [facility] [address] [place] [address] Dr. Ambrosio Ramirez Cholesterol in LDL [Mass/Vol] 132.4 mg/dL Normal [facility] Comment on above: Performed By: #### A 1C #### [facility] [address] [address] [address] Ambrosio Ramirez Cholesterol.total/Cho lesterol in HDL [Mass ratio] 3.3 {ratio} Normal [facility] Comment on above: Performed By: #### A 1C #### [facility] [address] [address] [address] Ambrosio Ramirez HDL NORMAL > or = 60 mg/dl - LOW CARDIOVASCULAR RISK <40 mg/dl - HIGH CARDIOVASCULAR RISK Normal [facility] Comment on above: Performed By: #### A 1C #### [facility] [address] [address] [address] Ambrosio Ramirez LDL CALC NORMAL SEE BELOW Normal [facility] Comment on above: Result Comment: <100 mg/dl OPTIMAL 100 - 129 mg/dl NEAR OR ABOVE OPTIMAL 130 - 159 mg/dl BORDERLINE HIGH 160 - 189 mg/dl HIGH >190 mg/dl VERY HIGH Performed By: #### A 1C #### [facility] [address] [address] [address] Ambrosio Ramirez Triglyceride [Mass/Vol] 153 mg/dL Critically high <=150 [facility] Comment on above: Performed By: #### A 1C #### [facility] [address] [address] [address] Ambrosio Ramirez VLDL CALC 30.6 mg/dL Normal [facility] Comment on above: Performed By: #### A 1C #### [facility] [address] [address] [address] Ambrosio Ramirez PROF 14(COMP METB)on 023 Albumin [Mass/Vol] 4.2 g/dL Normal 3.4-5.0 [facility] Comment on above: Performed By: #### A 1C #### [facility] [address] [address] [address] Ambrosio Ramirez Albumin/Globulin [Mass ratio] 1.3 {ratio} Normal [facility] Comment on above: Performed By: #### A 1C #### [facility] [address] [address] [address] Ambrosio Ramirez ALP [Catalytic activity/Vol] 62 U/L Normal 46-116 [facility] Comment on above: Performed By: #### A 1C #### [facility] [address] [address] [address] Ambrosio Ramirez ALT [Catalytic activity/Vol] 27 U/L Normal 14-59 [facility] Comment on above: Performed By: #### A 1C #### [facility] [address] [address] [address] Ambrosio Ramirez Anion gap [Moles/Vol] 12.8 mmol/L Normal [facility] Comment on above: Performed By: #### A 1C #### [facility] [address] [address] [address] Ambrosio Ramirez AST [Catalytic activity/Vol] 39 U/L Critically high 15-37 [facility] Comment on above: Performed By: #### A 1C #### [facility] [address] [place] [address] Dr. Ambrosio Ramirez Bilirubin [Mass/Vol] 0.4 mg/dL Normal 0.2-1.0 [facility] Comment on above: Performed By: #### A 1C #### [facility] [address] [address] [address] Ambrosio Ramirez Calcium [Mass/Vol] 9.1 mg/dL Normal 8.5-10.1 [facility] Comment on above: Performed By: #### A 1C #### [facility] [address] [address] [address] Ambrosio Ramirez Chloride [Moles/Vol] 103 mmol/L Normal 98-107 [facility] Comment on above: Performed By: #### A 1C #### [facility] [address] [address] [address] Ambrosio Ramirez CO2 [Moles/Vol] 30.5 mmol/L Normal 21.0-32.0 [facility] Comment on above: Performed By: #### A 1C #### [facility] [address] [address] [address] Ambrosio Ramirez Creatinine [Mass/Vol] 0.54 mg/dL Critically low 0.55-1.02 [facility] Comment on above: Performed By: #### A 1C #### [facility] [address] [address] [address] Ambrosio Ramirez EGFR-AF BELGIAN >60 Normal >=60 [facility] Comment on above: Performed By: #### A 1C #### [facility] [address] [address] [address] Ambrosio Ramirez EGFR-NON AF BELGIAN >60 Normal >=60 [facility] Comment on above: Performed By: #### A 1C #### [facility] [address] [address] [address] Ambrosio Ramirez Globulin (S) [Mass/Vol] 3.3 g/dL Normal [facility] Comment on above: Performed By: #### A 1C #### [facility] [address] [place] [address] Dr. Ambrosio Ramirez Glucose [Mass/Vol] 88 mg/dL Normal 74-106 [facility] Comment on above: Performed By: #### A 1C #### [facility] [address] [address] [address] Ambrosio Ramirez Potassium [Moles/Vol] 4.3 mmol/L Normal 3.5-5.1 [facility] Comment on above: Performed By: #### A 1C #### [facility] [address] [place] [address] Dr. Ambrosio Ramirez Protein [Mass/Vol] 7.5 g/dL Normal 6.4-8.2 [facility] Comment on above: Performed By: #### A 1C #### [facility] [address] [place] [address] Dr. Ambrosio Ramirez Sodium [Moles/Vol] 142 mmol/L Normal 136-145 [facility] Comment on above: Performed By: #### A 1C #### [facility] [address] [place] [address] Dr. Ambrosio Ramirez Urea nitrogen [Mass/Vol] 9.0 mg/dL Normal 7.0-18.0 [facility] Comment on above: Performed By: #### A 1C #### [facility] [address] [place] [address] Dr. Ambrosio Ramirez Urea nitrogen/Creatinine [Mass ratio] 16.7 mg/mg Normal [facility] Comment on above: Performed By: #### A 1C #### [facility] [address] [place], [place] [address] Dr. Ambrosio Ramirez TSHon 03-12-2022 TSH 1.934 uIU/mL Normal 0.358-3.740 [facility] Comment on above: Performed By: #### A 1C #### [facility] [address] [address] [address] Ambrosio Ramirez XR TSPINE 3 VIEWSon [...] GEORGE CATALAN Date: 2022-03-12 17:07 Normal [facility]on SARS-CoV-2 (COVID-19) RNA JAYY+probe Ql (Unsp spec) Not detected Normal NOT DETECTED [facility] Comment on above: Result Comment: [...] for this test is supported by the [place] of [employer] and [employer] Service's declaration that [...] used). Performed By: #### C VDTB #### [facility] [address] [place] [address] Dr. Ambrosio Ramirez INFLUENZA A AND B AGon 01-27 INFLUENZA A AG Negative Normal NEGATIVE SEE COMMENT [facility] Comment on above: Performed By: #### I NFLUAB #### [facility] [address] [place] [address] Dr. Ambrosio Ramirez INFLUENZA B AG Negative Normal NEGATIVE SEE COMMENT [facility] Comment on above: Performed By: #### I NFLUAB #### [facility] [address] [place] [address] Dr. Ambrosio Ramirez INTERNAL CONTROLS Within Normal Limits Normal Wi thin Normal Limits [facility] Comment on above: Performed By: #### I NFLUAB #### [facility] [address] [place] [address] Dr. Ambrosio Ramirez XR CHEST 2 Von [...] GEORGE ROWE Date: 2022-01-27 14:42 Normal [facility] RPR QUANTon 08-26-2021 Rapid Plasma Reagin, Quant Non-Reactive Normal NonRea<1:1 [facility] Comment on above: Result Comment: Plea se Note: This test does not meet current guidelines for screening and diagnosis of syphilis. This test is intended for following treatment response in patients being treated for syphilis infection. To screen for syphilis infection, a reflex cascade that includes both RPR and a treponema-specific assay should be utilized, such as Treponema pallidum (Syphilis) Screening Weaver (951434) or Rapid Plasma Reagin (RPR) Test With Reflex to Quantitative RPR and Confirmatory Treponema pallidum Antibodies (623662). Performed By: #### R PRQ #### [facility] [address] [place] [address] Dr. Ambrosio Ramirez HEP B SURFACE ANTIGEN SCREEN on 08-24-2021 HBsAg Screen Negative Normal Negative [facility] Comment on above: Performed By: #### H BSANS #### [facility] [address] [place] [address] Dr. Ambrosio Ramirez HEPATITIS C ANTIBODYon 08-24 Hep C Virus Ab <0.1 Normal 0.0-0.9 [facility] Comment on above: Result Comment: Nega [...] Hepatitis C Virus (HCV) RNA, Diagnosis, JAYY (701635) and Hepatitis C Virus (HCV) Antibody with reflex to Quantitative Real-time PCR (879889). Performed By: #### H CV #### [facility] [address] [place] [address] Dr. Ambrosio Ramirez INSULINon 08-23-2021 Insulin 5.0 uIU/mL Normal 2.6-24.9 [facility] Comment on above: Performed By: #### A 1C #### [facility] [address] [place] [address] Dr. Ambrosio Ramirez OCC BLD IMMUNO SCREENon OCCULT BLOOD Negative Normal NEGATIVE [facility] Comment on above: Performed By: #### O BSCRN #### [facility] [address] [place] [address] Dr. Ambrosio Ramirez CBC AUTO DIFFon 08-22-2021 BASO # 0.1 103/ul Normal 0.0-0.1 [facility] Comment on above: Performed By: #### O BSCRN #### [facility] [address] [place] [address] Dr. Ambrosio Ramirez Basophils/100 WBC (Bld) 1.0 % Normal 0.2-2.0 [facility] Comment on above: Performed By: #### O BSCRN #### [facility] [address] [place] [address] Dr. Ambrosio Ramirez EO # 0.1 103/ul Normal 0.0-0.7 [facility] Comment on above: Performed By: #### O BSCRN #### [facility] [address] [place] [address] Dr. Ambrosio Ramirez Eosinophils/100 WBC (Bld) 1.8 % Normal 0.9-7.0 [facility] Comment on above: Performed By: #### O BSCRN #### [facility] [address] [place] [address] Dr. Ambrosio Ramirez Erythrocyte distribution width (RBC) [Ratio] 11.9 % Normal 11.0-15.0 [facility] Comment on above: Performed By: #### O BSCRN #### [facility] [address] [place] [address] Dr. Ambrosio Ramirez Hematocrit (Bld) [Volume fraction] 48.6 % Critically high 36.0-48.0 [facility] Comment on above: Performed By: #### O BSCRN #### [facility] [address] [place] [address] Dr. Ambrosio Ramirez Hemoglobin (Bld) [Mass/Vol] 16.3 g/dL Critically high 12.0-16.0 [facility] Comment on above: Performed By: #### O BSCRN #### [facility] [address] [place] [address] Dr. Ambrosio Ramirez IG # 0.03 10e3/ul Normal 0.00-0.03 [facility] Comment on above: Performed By: #### O BSCRN #### [facility] [address] [place] [address] Dr. Ambrosio Ramirez IG % 0.6 % Critically high 0.0-0.5 [facility] Comment on above: Performed By: #### O BSCRN #### [facility] [address] [place] [address] Dr. Ambrosio Ramirez LYMPH # 2.4 103/ul Normal 1.2-3.8 [facility] Comment on above: Performed By: #### O BSCRN #### [facility] [address] [place] [address] Dr. Ambrosio Ramirez Lymphocytes/100 WBC (Bld) 46.9 % Normal 20.5-60.0 [facility] Comment on above: Performed By: #### O BSCRN #### [facility] [address] [place] [address] Dr. Ambrosio Ramirez MANUAL DIFF REQ NO Normal [facility] Comment on above: Performed By: #### O BSCRN #### [facility] [address] [place] [address] Dr. Ambrosio Ramirez MCH (RBC) [Entitic mass] 34.9 pg Critically high 26.7-34.0 [facility] Comment on above: Performed By: #### O BSCRN #### [facility] [address] [place] [address] Dr. Ambrosio Ramirez MCHC (RBC) [Mass/Vol] 33.5 g/dL Normal 29.9-35.2 [facility] Comment on above: Performed By: #### O BSCRN #### [facility] [address] [place] [address] Dr. Ambrosio Ramirez MCV (RBC) [Entitic vol] 104.1 fL Critically high 81.0-99.0 [facility] Comment on above: Performed By: #### O BSCRN #### [facility] [address] [place] [address] Dr. Ambrosio Ramirez MONO # 0.4 103/ul Normal 0.3-0.8 [facility] Comment on above: Performed By: #### O BSCRN #### [facility] [address] [place] [address] Dr. Ambrosio Ramirez Monocytes/100 WBC (Bld) 8.2 % Normal 1.7-12.0 [facility] Comment on above: Performed By: #### O BSCRN #### [facility] [address] [place] [address] Dr. Ambrosio Ramirez NEUT # 2.1 103/ul Normal 1.4-6.5 [facility] Comment on above: Performed By: #### O BSCRN #### [facility] [address] [place] [address] Dr. Ambrosio Ramirez Neutrophils/100 WBC (Bld) 41.5 % Critically low 43.0-75.0 [facility] Comment on above: Performed By: #### O BSCRN #### [facility] [address] [place] [address] Dr. Ambrosio Ramirez Platelet mean volume (Bld) [Entitic vol] 9.3 fL Critically low 9.5-13.5 [facility] Comment on above: Performed By: #### O BSCRN #### [facility] [address] [place] [address] Dr. Ambrosio Ramirez PLT 210 103/ul Normal 150-450 [facility] Comment on above: Performed By: #### O BSCRN #### [facility] [address] [place] [address] Dr. Ambrosio Ramirez RBC 4.67 106/ul Normal 4.20-5.40 [facility] Comment on above: Performed By: #### O BSCRN #### [facility] [address] [place] [address] Dr. Ambrosio Ramirez WBC 5.0 103/ul Normal 4.0-11.0 [facility] Comment on above: Performed By: #### O BSCRN #### [facility] [address] [place] [address] Dr. Ambrosio Ramirez FREE THYROXINE INDEX T7on -2021 FTI 2.72 Normal 1.30-4.50 [facility] Comment on above: Performed By: #### O BSCRN #### [facility] [address] [place] [address] Dr. Ambrosio Ramirez T3U 32.0 % Normal 30.0-39.0 [facility] Comment on above: Performed By: #### O BSCRN #### [facility] [address] [place] [address] Dr. Ambrosio Ramirez T4 [Mass/Vol] 8.50 ug/dL Normal 4.80-13.90 [facility] Comment on above: Performed By: #### O BSCRN #### [facility] [address] [place] [address] Dr. Ambrosio Ramirez GLYCOHEMOGLOBIN A1Con 2021 ADA RECOMMENDATION SEE BELOW Normal [facility] Comment on above: Result Comment: ADA RECOMMENDED LIMIT 4.0 - 6.0 ADA THERAPEUTIC TARGET < 7.0 ACTION SUGGESTED > 7.0 Performed By: #### A 1C #### [facility] [address] [place] [address] Dr. Ambrosio Ramirez Glucose [Mass/Vol] 108 mg/dL Normal [facility] Comment on above: Performed By: #### A 1C #### [facility] [address] [place] [address] Dr. Ambrosio Ramirez HbA1c (Bld) [Mass fraction] 5.4 % Normal 4.5-6.2 [facility] Comment on above: Performed By: #### A 1C #### [facility] [address] [place] [address] Dr. Ambrosio Ramirez HIV 1/2 RAPID (EXPOSURE ONLY )on 08-22-2021 HIV AB Negative Normal [facility] Comment on above: Performed By: #### A 1C #### [facility] [address] [place] [address] Dr. Ambrosio Ramirez HIV AG Negative Normal [facility] Comment on above: Performed By: #### A 1C #### [facility] [address] [place] [address] Dr. Ambrosio Ramirez INTERNAL CONTROLS Within Normal Limits Normal Wi thin Normal Limits [facility] Comment on above: Performed By: #### A 1C #### [facility] [address] [place] [address] Dr. Ambrosio Ramirez RAPID HIV INFO SEE BELOW Normal [facility] Comment on above: Result Comment: This test is used for the initial screening of the exposure source. Confirmation of all results will be obtained through reference lab testing. Performed By: #### A 1C #### [facility] [address] [address] [address] Ambrosio Ramirez IRONon 08-22-2021 Iron [Mass/Vol] 137.0 ug/dL Normal 50.0-170.0 [facility] Comment on above: Performed By: #### I HAMLET #### [facility] [address] [address] [address] Ambrosio Ramirez LIPID PROFILEon 08-22-2021 CHOL-HDL RATIO NORM SEE BELOW Normal [facility] Comment on above: Result Comment: 3.3 - 4.4 LOW RISK 4.4 - 7.1 AVERAGE RISK 7.1 - 11.0 MODERATE RISK >11.0 HIGH RISK Performed By: #### O BSCRN #### [facility] [address] [address] [address] Ambrosio Ramirez Cholesterol [Mass/Vol] 251 mg/dL Critically high <=200 [facility] Comment on above: Performed By: #### O BSCRN #### [facility] [address] [address] [address] Ambrosio Ramirez Cholesterol in HDL [Mass/Vol] 67 mg/dL Critically high 40-60 [facility] Comment on above: Performed By: #### O BSCRN #### [facility] [address] [address] [address] Ambrosio Ramirez Cholesterol in LDL [Mass/Vol] 154.8 mg/dL Normal [facility] Comment on above: Performed By: #### O BSCRN #### [facility] [address] [address] [address] Ambrosio Ramirez Cholesterol.total/Cho lesterol in HDL [Mass ratio] 3.7 {ratio} Normal [facility] Comment on above: Performed By: #### O BSCRN #### [facility] [address] [place] [address] Dr. Ambrosio Ramirez HDL NORMAL > or = 60 mg/dl - LOW CARDIOVASCULAR RISK <40 mg/dl - HIGH CARDIOVASCULAR RISK Normal [facility] Comment on above: Performed By: #### O BSCRN #### [facility] [address] [address] [address] Ambrosio Ramirez LDL CALC NORMAL SEE BELOW Normal [facility] Comment on above: Result Comment: <100 mg/dl OPTIMAL 100 - 129 mg/dl NEAR OR ABOVE OPTIMAL 130 - 159 mg/dl BORDERLINE HIGH 160 - 189 mg/dl HIGH >190 mg/dl VERY HIGH Performed By: #### O BSCRN #### [facility] [address] [address] [address] Ambrosio Ramirez Triglyceride [Mass/Vol] 146 mg/dL Normal <=150 [facility] Comment on above: Performed By: #### O BSCRN #### [facility] [address] [address] [address] Ambrosio Ramirez VLDL CALC 29.2 mg/dL Normal [facility] Comment on above: Performed By: #### O BSCRN #### [facility] [address] [place] [address] Dr. Ambrosio Ramirez PROF 14(COMP METB)on 022 Albumin [Mass/Vol] 4.3 g/dL Normal 3.4-5.0 [facility] Comment on above: Performed By: #### O BSCRN #### [facility] [address] [address] [address] Ambrosio Ramirez Albumin/Globulin [Mass ratio] 1.2 {ratio} Normal [facility] Comment on above: Performed By: #### O BSCRN #### [facility] [address] [address] [address] Ambrosio Ramirez ALP [Catalytic activity/Vol] 57 U/L Normal 46-116 [facility] Comment on above: Performed By: #### O BSCRN #### [facility] [address] [address] [address] Ambrosio Ramirez ALT [Catalytic activity/Vol] 56 U/L Normal 14-59 [facility] Comment on above: Performed By: #### O BSCRN #### [facility] [address] [address] [address] Ambrosio Ramirez Anion gap [Moles/Vol] 11.5 mmol/L Normal [facility] Comment on above: Performed By: #### O BSCRN #### [facility] [address] [address] [address] Ambrosio Ramirez AST [Catalytic activity/Vol] 75 U/L Critically high 15-37 [facility] Comment on above: Performed By: #### O BSCRN #### [facility] [address] [address] [address] Ambrosio Ramirez Bilirubin [Mass/Vol] 0.4 mg/dL Normal 0.2-1.0 [facility] Comment on above: Performed By: #### O BSCRN #### [facility] [address] [address] [address] Ambrosio Ramirez Calcium [Mass/Vol] 8.7 mg/dL Normal 8.5-10.1 [facility] Comment on above: Performed By: #### O BSCRN #### [facility] [address] [place] [address] Dr. Ambrosio Ramirez Chloride [Moles/Vol] 105 mmol/L Normal 98-107 [facility] Comment on above: Performed By: #### O BSCRN #### [facility] [address] [place] [address] Dr. Ambrosio Ramirez CO2 [Moles/Vol] 30.3 mmol/L Normal 21.0-32.0 [facility] Comment on above: Performed By: #### O BSCRN #### [facility] [address] [place] [address] Dr. Ambrosio Ramirez Creatinine [Mass/Vol] 0.67 mg/dL Normal 0.55-1.02 [facility] Comment on above: Performed By: #### O BSCRN #### [facility] [address] [address] [address] Ambrosio Ramirez EGFR-AF BELGIAN >60 Normal >=60 [facility] Comment on above: Performed By: #### O BSCRN #### [facility] [address] [address] [address] Ambrosio Ramirez EGFR-NON AF BELGIAN >60 Normal >=60 [facility] Comment on above: Performed By: #### O BSCRN #### [facility] [address] [address] [address] Ambrosio Ramirez Globulin (S) [Mass/Vol] 3.7 g/dL Normal [facility] Comment on above: Performed By: #### O BSCRN #### [facility] [address] [address] [address] Ambrosio Ramirez Glucose [Mass/Vol] 93 mg/dL Normal 74-106 [facility] Comment on above: Performed By: #### O BSCRN #### [facility] [address] [place] [address] Dr. Ambrosio Ramirez Potassium [Moles/Vol] 4.8 mmol/L Normal 3.5-5.1 [facility] Comment on above: Performed By: #### O BSCRN #### [facility] [address] [place] [address] Dr. Ambrosio Ramirez Protein [Mass/Vol] 8.0 g/dL Normal 6.4-8.2 [facility] Comment on above: Performed By: #### O BSCRN #### [facility] [address] [place] [address] Dr. Ambrosio Ramirez Sodium [Moles/Vol] 142 mmol/L Normal 136-145 [facility] Comment on above: Performed By: #### O BSCRN #### [facility] [address] [place] [address] Dr. Ambrosio Ramirez Urea nitrogen [Mass/Vol] 8.0 mg/dL Normal 7.0-18.0 [facility] Comment on above: Performed By: #### O BSCRN #### [facility] [address] [place] [address] Dr. Ambrosio Ramirez Urea nitrogen/Creatinine [Mass ratio] 11.9 mg/mg Normal [facility] Comment on above: Performed By: #### O BSCRN #### [facility] [address] [place] [address] Dr. Ambrsoio Ramirez TSHon 08-22-2021 TSH 2.117 uIU/mL Normal 0.358-3.740 [facility] Comment on above: Performed By: #### O BSCRN #### [facility] [address] [address] [address] 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 Electronically authenticated by: GEORGE ROWE Date: 2021-08-22 21:07 Normal [facility] Vital Signs Date Time Vital Sign Value Performing Clinician Facility 05-09-2022 10:14-0400 Diastolic blood pressure 85 mm[Hg] [facility] Ama Edwards Work Phone: [facility] 05-09-2022 10:14-0400 Heart rate 99 /min [facility] Ama Edwards Work Phone: [facility] 05-09-2022 10:14-0400 Respiratory rate 18 /min [facility] Ama Edwards Work Phone: [facility] 05-09-2022 10:14-0400 SaO2% (BldA) [Mass fraction] 99 % [facility] Ama Edwards Work Phone: [facility] 05-09-2022 10:14-0400 Systolic blood pressure 124 mm[Hg] [facility] Ama Edwards Work Phone: [facility] 05-09-2022 08:04-0400 Body height 180.34 cm [facility] Ama Edwards Work Phone: [facility] 05-09-2022 08:04-0400 Body weight 58.96 kg [facility] Ama Edwards Work Phone: [facility] 05-01-2022 11:15-0500 Body height Imad Asaad Other [facility] Other 05-01-2022 11:15-0500 Body mass index (BMI) [Ratio] 18.13 kg/m2 Imad Asaad Other [facility] Other 05-01-2022 11:15-0500 Body weight 58.97 kg Imad Asaad Other [facility] Other 05-01-2022 11:15-0500 Diastolic blood pressure 102 mm[Hg] Imad Asaad Other [facility] Other 05-01-2022 11:15-0500 Respiratory rate 16 /min Imad Asaad Other [facility] Other 05-01-2022 11:15-0500 Systolic blood pressure 158 mm[Hg] Imad Asaad Other [employer] Other Encounters Encounter Date Encounter Type Care [...] Start: 05-09-2022 End: 05-09-2022 ambulatory Ama Edwards Facility:[facility] Start: 05-09-2022 End: 05-09-2022 Admission to same day surgery center [facility] Ama Edwards Work Phone: [facility] Work Phone: Start: 05-09-2022 End: 05-09-2022 ambulatory [facility] Ama Edwards Work Phone: [facility] Work Phone: Start: 05-02-2022 End: 05-02-2022 ambulatory Imad Asaad Other [employer] Other Start: 05-02-2022 Telephone encounter Imad Asaad [facility] Start: 05-01-2022 End: 05-01-2022 ambulatory Imad Asaad Other [facility] [employer] Other Start: 05-01-2022 Office consultation new/estab patient [...] Procedure Detail Performing Clinician Start: 05-09-2022 Esophagogastroduodenoscopy [facility] Ama patel Work Phone: Screening for malign ant neoplasm of colon Imad Asaad Other Plan of Treatment Date Care Activity Detail Author Start: 05-09-2022 [facility] Patient Education Colon Polyps H emorrhoids (DC) Diverticulosis (DC) Gastritis (DC) [facility] Work Phone: Payers Date Payer Category Payer Self-pay 2022 Unknown 1960 Unknown [id number] 2.16.84 [id number] 1960 Unknown [id number] 2.16.84 [id number] 1960 Unknown [id number] 2.16.84 [id number] 1960 Unknown [id number] 2.16.84 [id number] 1960 Unknown [id number] 2.16.84 [id number] 1962 Unknown [id number] 2.16.84 [id number] 1962 Unknown [id number] 2.16.84 0.1.172704.3.579.2.593 1960 Unknown [id number] 2.16. 840.1.539443.3.579.2.196 1960 Unknown [id number] 2.16. [id number] 1962 Unknown [id number] 2.16. 840.1.424035.3.579.2.196 1962 Unknown [id number] 2.16. 840.1.524950.3.579.2.196 1962 Unknown [id number] 2.16. 840.1.620841.3.579.2.196 1962 Unknown [id number] 2.16. 840.1.176152.3.579.2.196 1962 Unknown [id number] 2.16. [id number] 1957 Medicare [id number] 1957 Unknown [id number] 1957 Unknown [id number] 1957 Unknown [id number] Unknown [id number] 2.16.8 [id number] Social History Date Type Detail Facility Start: 05-09-2022 Tobacco smoking status NHIS Smoker (finding) [facility] Start: 1960 Sex Assigned At Female F [facility] Sex Assigned At Sex Assigned At Bir th [employer] Other Goals Date Patient Goal Desired Activity /State Procedure note 05-09-2022 Note Date & Type Note Facility 05-09-2022 Procedure note [facility] Evaluation note 05-01-2022 Note Date & Type Note Facility 05-01-2022 Evaluation note Encounter Date Diagnosis Assessment Notes Apr, Dysphagia (ICD-10 - R13.10) Apr, Weight loss (ICD-10 - R63.4) Apr, Colon cancer screening (ICD-10 - Z12.11) [facility] Other Evaluation note Note Date & Type Note Facility Evaluation note No assessment information availa ble [facility] Work Phone: Evaluation note Note Date & Type Note Facility Evaluation note No Information [employer] Other History general Narrative - Reported Note Date & Type Note Facility History general Narrative - Reported Type Medical History Anxiety/Depression Surgical History Neck surgery Surgical History Tonsillectomy Hospitalization History See above [facility] Other Hospital Discharge instructions Note Date & [...] -Follow up with PCP. - Office number [phone]. [facility] Work Phone: Chief Complaint and Reason [...] section and content) DATE CREATED AUTHOR 05/20/2022 [facility] DATE CREATED AUTHOR AUTHOR'S ORGANIZ ATION 07/02/2022 [facility] DATE CREATED AUTHOR AUTHOR'S ORGANIZ ATION 10/06/2023 [facility] DATE CREATED AUTHOR AUTHOR'S ORGANIZ ATION 11/24/2023 [facility] FOR RECORDS PERTAINING TO PATIENTS WHO [...] BE BASED ON THE PRIMARY CLINICAL RECORDS. [employer] [facility]. provides no warranty or guarantee of the accuracy or completeness of information in this document.
== END 2023-12-09 14:24 | disposition home or self-care (01) ==
LOC: MAMMO 14:24
PROVIDERS: PCP Nurse Practitioner Family; Visit Provider Nurse Practitioner Family
DX: R92.8 Other abnormal and inconclusive findings on diagnostic imaging of breast (principal)
CPT/HCPCS: 76642; 77065

== ENCOUNTER 2023-12-14 12:52 | Outpatient (OUT) | payer MEDICARE, OTHER, MEDICAID, SELFPAY ==
--- OUTSIDE RECORDS SUMMARY | 2023-12-14 12:56 | XMS_ITS | CCD ---
Author Organization [facility] Care Team Providers Care Data Compiler Name Role Phone MD Nesha Bryant Attending Provider [phone] JIE Edwards Primary Care Provider [phone] Asaad, Imad Unavailable Ama Edwards Primary Care [...] 30 days Apr, Active polyethylene glycol 3350 372752 mg / potassium chloride 2970 mg / sodium bicarbonate 6740 mg / sodium chloride 5860 mg / sodium sulfate 55111 mg powder for oral solution (2 sources) [...] Test Name Value Interpretation Reference Range Facility [facility] 05-09-2022 L Specimen: [id number] Received: 05/09/22 Status: EDUARD Zaragoza Num: [id number] Spec Type: Surgical Subm Dr: Nesha Bryant MD Tissues: A Gastric Biopsy (GASTRIC) B Esophagus Biopsy (DISTAL ESOPHAGUS) C Esophagus Biopsy (PROXIMAL ESOPHAGUS) D Colon Biopsy (CECAL POLYP) E Colon Biopsy (SIGMOID POLYP) F Colon Biopsy (RECTAL POLYPS X3) Procedures: /Sanya Jimenez/Lindsay L4/6 Age/ Patient Sex Location Account Attending Physician Nancy Joyce 61/F [id number] Nesha Bryant MD SPEC NUM: [id number] RECD: 05/09/22 STATUS: EDUARD ZARAGOZA NUM: [id number] KATY: 05/09/22- SUBM DR: Nesha Bryant MD ENTERED: 05/09/22-1040 [facility] DR: SPEC TYPE: Surgical DEPT: [...] mucosal fold. - Negative for adenoma/dysplasia. Specimen: [id number] Received: 05/09/22-1039 Status: MANOLOZahra Zaragoza Num: [id number] Spec Type: Surgical Subm Dr: Nesha Bryant MD Tissues: A Gastric Biopsy (GASTRIC) B Esophagus Biopsy (DISTAL ESOPHAGUS) C Esophagus Biopsy (PROXIMAL ESOPHAGUS) D Colon Biopsy (CECAL POLYP) E Colon Biopsy (SIGMOID POLYP) F Colon Biopsy (RECTAL POLYPS X3) Procedures: HE/12, Gross/Micro L4/6 Patient: Nancy Joyce [id number] (Continued) Specimen: [id number] Received: 05/09/22 (Continued) Pathological Diagnosis (Continued) Signed (signature on file) Carin Oliveros MD 05/12/22 1130 Specimen: [id number] Received: 05/09/22 Status: EDUARD Nik Num: [id number] Spec Type: Surgical Subm Dr: Nesha Bryant MD Tissues: A Gastric Biopsy (GASTRIC) B Esophagus Biopsy (DISTAL ESOPHAGUS) C Esophagus Biopsy (PROXIMAL ESOPHAGUS) D Colon Biopsy (CECAL POLYP) E Colon Biopsy (SIGMOID POLYP) F Colon Biopsy (RECTAL POLYPS X3) Procedures: ROSI/Barbara, Gross/Micro L4/6 Patient: Nancy Joyce [id number] (Continued) Specimen: [id number] Received: 05/09/22-1039 (Continued) Pathological Diagnosis (Continued) E. [...] labeled 1. (more content not included)... Normal [facility] XR MODIFIED BARIUM SWALLOWon 03-25-2022 XR [...] by: DENNY RINCON Date: 2022-03-25 13:53 Normal [facility] INSULINon 03-13-2022 Insulin 3.9 uIU/mL Normal 2.6-24.9 [facility] Comment on above: Performed By: #### O BSCRN #### [facility] [address] [place] [address] Dr. Ambrosio Ramirez XR CSPINE MIN 4 [...] DENNY RINCON Date: 2022-03-13 08:[address] [facility] CBC AUTO DIFFon 03-12-2022 BASO # 0.0 103/ul Normal 0.0-0.1 [facility] Comment on above: Performed By: #### C BC #### [facility] [address] [place] [address] Dr. Ambrosio Ramirez Basophils/100 WBC (Bld) 0.7 % Normal 0.2-2.0 [facility] Comment on above: Performed By: #### C BC #### [facility] [address] [place] [address] Dr. Ambrosio Ramirez EO # 0.1 103/ul Normal 0.0-0.7 [facility] Comment on above: Performed By: #### C BC #### [facility] [address] [place] [address] Dr. Ambrosio Ramirez Eosinophils/100 WBC (Bld) 0.9 % Normal 0.9-7.0 [facility] Comment on above: Performed By: #### C BC #### [facility] [address] [place] [address] Dr. Ambrosio Ramirez Erythrocyte distribution width (RBC) [Ratio] 12.3 % Normal 11.0-15.0 [facility] Comment on above: Performed By: #### C BC #### [facility] [address] [place] [address] Dr. Ambrosio Ramirez Hematocrit (Bld) [Volume fraction] 46.0 % Normal 36.0-48.0 [facility] Comment on above: Performed By: #### C BC #### [facility] [address] [place] [address] Dr. Ambrosio Ramirez Hemoglobin (Bld) [Mass/Vol] 15.2 g/dL Normal 12.0-16.0 [facility] Comment on above: Performed By: #### C BC #### [facility] [address] [place] [address] Dr. Ambrosio Ramirez IG # 0.03 10e3/ul Normal 0.00-0.03 [facility] Comment on above: Performed By: #### C BC #### [facility] [address] [place] [address] Dr. Ambrosio Ramirez IG % 0.5 % Normal 0.0-0.[address] [facility] Comment on above: Performed By: #### C BC #### [facility] [address] [place] [address] Dr. Ambrosio Ramirez LYMPH # 2.0 103/ul Normal 1.2-3.8 [facility] Comment on above: Performed By: #### C BC #### [facility] [address] [place] [address] Dr. Ambrosio Ramirez Lymphocytes/100 WBC (Bld) 35.0 % Normal 20.5-60.0 [facility] Comment on above: Performed By: #### C BC #### [facility] [address] [place] [address] Dr. Ambrosio Ramirez MANUAL DIFF REQ NO Normal [facility] Comment on above: Performed By: #### C BC #### [facility] [address] [place] [address] Dr. Ambrosio Ramirez MCH (RBC) [Entitic mass] 33.8 pg Normal 26.7-34.0 [facility] Comment on above: Performed By: #### C BC #### [facility] [address] [place] [address] Dr. Ambrosio Ramirez MCHC (RBC) [Mass/Vol] 33.0 g/dL Normal 29.9-35.2 [facility] Comment on above: Performed By: #### C BC #### [facility] [address] [place] [address] Dr. Ambrosio Ramirez MCV (RBC) [Entitic vol] 102.2 fL Critically high 81.0-99.0 [facility] Comment on above: Performed By: #### C BC #### [facility] [address] [place] [address] Dr. Ambrosio Ramirez MONO # 0.4 103/ul Normal 0.3-0.8 [facility] Comment on above: Performed By: #### C BC #### [facility] [address] [place] [address] Dr. Ambrosio Ramirez Monocytes/100 WBC (Bld) 7.2 % Normal 1.7-12.0 [facility] Comment on above: Performed By: #### C BC #### [facility] [address] [place] [address] Dr. Ambrosio Ramirez NEUT # 3.2 103/ul Normal 1.4-6.5 [facility] Comment on above: Performed By: #### C BC #### [facility] [address] [place] [address] Dr. Ambrosio Ramirez Neutrophils/100 WBC (Bld) 55.7 % Normal 43.0-75.0 [facility] Comment on above: Performed By: #### C BC #### [facility] [address] [address] [address] Ambrosio Ramirez Platelet mean volume (Bld) [Entitic vol] 9.1 fL Critically low 9.5-13.5 [facility] Comment on above: Performed By: #### C BC #### [facility] [address] [address] [address] Ambrosio Ramirez PLT 234 103/ul Normal 150-450 [facility] Comment on above: Performed By: #### C BC #### [facility] [address] [place] [address] Dr. Ambrosio Ramirez RBC 4.50 106/ul Normal 4.20-5.40 [facility] Comment on above: Performed By: #### C BC #### [facility] [address] [place] [address] Dr. Ambrosio Ramirez WBC 5.7 103/ul Normal 4.0-11.0 [facility] Comment on above: Performed By: #### C BC #### [facility] [address] [place] [address] Dr. Ambrosio Ramirez FREE THYROXINE INDEX T7on FTI 2.41 Normal 1.30-4.50 [facility] Comment on above: Performed By: #### A 1C #### [facility] [address] [place] [address] Dr. Ambrosio Ramirez T3U 33.0 % Normal 30.0-39.0 [facility] Comment on above: Performed By: #### A 1C #### [facility] [address] [place] [address] Dr. Ambrosio Ramirez T4 [Mass/Vol] 7.30 ug/dL Normal 4.80-13.90 [facility] Comment on above: Performed By: #### A 1C #### [facility] [address] [place] [address] Dr. Ambrosio Ramirez GLYCOHEMOGLOBIN A1Con 2022 ADA RECOMMENDATION SEE BELOW Normal [facility] Comment on above: Result Comment: ADA RECOMMENDED LIMIT 4.0 - 6.0 ADA THERAPEUTIC TARGET < 7.0 ACTION SUGGESTED > 7.0 Performed By: #### A 1C #### [facility] [address] [place] [address] Dr. Ambrosio Ramirez Glucose [Mass/Vol] 100 mg/dL Normal [facility] Comment on above: Performed By: #### A 1C #### [facility] [address] [address] [address] Ambrosio Ramirez HbA1c (Bld) [Mass fraction] 5.1 % Normal 4.5-6.2 [facility] Comment on above: Performed By: #### A 1C #### [facility] [address] [place] [address] Dr. Ambrosio Ramirez IRONon 03-12-2022 Iron [Mass/Vol] 148.0 ug/dL Normal 50.0-170.0 [facility] Comment on above: Performed By: #### O BSCRN #### [facility] [address] [place] [address] Dr. Ambrosio Ramirez LIPID PROFILEon 03-12-2022 CHOL-HDL RATIO NORM SEE BELOW Normal [facility] Comment on above: Result Comment: 3.3 - 4.4 LOW RISK 4.4 - 7.1 AVERAGE RISK 7.1 - 11.0 MODERATE RISK >11.0 HIGH RISK Performed By: #### A 1C #### [facility] [address] [place] [address] Dr. Ambrosio Ramirez Cholesterol [Mass/Vol] 234 mg/dL Critically high <=200 [facility] Comment on above: Performed By: #### A 1C #### [facility] [address] [place] [address] Dr. Ambrosio Ramirez Cholesterol in HDL [Mass/Vol] 71 mg/dL Critically high 40-[address] [facility] Comment on above: Performed By: #### A 1C #### [facility] [address] [place] [address] Dr. Ambrosio Ramirez Cholesterol in LDL [Mass/Vol] 132.4 mg/dL Normal [facility] Comment on above: Performed By: #### A 1C #### [facility] [address] [address] [address] Ambrosio Ramirez Cholesterol.total/Cho lesterol in HDL [Mass ratio] 3.3 {ratio} Normal [facility] Comment on above: Performed By: #### A 1C #### [facility] [address] [address] [address] Ambrosio Ramirez HDL NORMAL > or = 60 mg/dl - LOW CARDIOVASCULAR RISK <40 mg/dl - HIGH CARDIOVASCULAR RISK Normal [facility] Comment on above: Performed By: #### A 1C #### [facility] [address] [address] [address] Ambrosio Ramirez LDL CALC NORMAL SEE BELOW Normal [facility] Comment on above: Result Comment: <100 mg/dl OPTIMAL 100 - 129 mg/dl NEAR OR ABOVE OPTIMAL 130 - 159 mg/dl BORDERLINE HIGH 160 - 189 mg/dl HIGH >190 mg/dl VERY HIGH Performed By: #### A 1C #### [facility] [address] [address] [address] Ambrosio Ramirez Triglyceride [Mass/Vol] 153 mg/dL Critically high <=150 [facility] Comment on above: Performed By: #### A 1C #### [facility] [address] [address] [address] Ambrosio Ramirez VLDL CALC 30.6 mg/dL Normal [facility] Comment on above: Performed By: #### A 1C #### [facility] [address] [address] [address] Ambrosio Ramirez PROF 14(COMP METB)on 023 Albumin [Mass/Vol] 4.2 g/dL Normal 3.4-5.0 [facility] Comment on above: Performed By: #### A 1C #### [facility] [address] [address] [address] Ambrosio Ramirez Albumin/Globulin [Mass ratio] 1.3 {ratio} Normal [facility] Comment on above: Performed By: #### A 1C #### [facility] [address] [address] [address] Ambrosio Ramirez ALP [Catalytic activity/Vol] 62 U/L Normal 46-116 [facility] Comment on above: Performed By: #### A 1C #### [facility] [address] [address] [address] Ambrosio Ramirez ALT [Catalytic activity/Vol] 27 U/L Normal 14-59 [facility] Comment on above: Performed By: #### A 1C #### [facility] [address] [address] [address] Ambrosio Ramirez Anion gap [Moles/Vol] 12.8 mmol/L Normal [facility] Comment on above: Performed By: #### A 1C #### [facility] [address] [address] [address] Ambrosio Ramirez AST [Catalytic activity/Vol] 39 U/L Critically high 15-37 [facility] Comment on above: Performed By: #### A 1C #### [facility] [address] [place] [address] Dr. Ambrosio Ramirez Bilirubin [Mass/Vol] 0.4 mg/dL Normal 0.2-1.0 [facility] Comment on above: Performed By: #### A 1C #### [facility] [address] [address] [address] Ambrosio Ramirez Calcium [Mass/Vol] 9.1 mg/dL Normal 8.5-10.1 [facility] Comment on above: Performed By: #### A 1C #### [facility] [address] [address] [address] Ambrosio Ramirez Chloride [Moles/Vol] 103 mmol/L Normal 98-107 [facility] Comment on above: Performed By: #### A 1C #### [facility] [address] [address] [address] Ambrosio Ramirez CO2 [Moles/Vol] 30.5 mmol/L Normal 21.0-32.0 [facility] Comment on above: Performed By: #### A 1C #### [facility] [address] [address] [address] Ambrosio Ramirez Creatinine [Mass/Vol] 0.54 mg/dL Critically low 0.55-1.02 [facility] Comment on above: Performed By: #### A 1C #### [facility] [address] [address] [address] Ambrosio Ramirez EGFR-AF TAJIK >60 Normal >=60 [facility] Comment on above: Performed By: #### A 1C #### [facility] [address] [address] [address] Ambrosio Ramriez EGFR-NON AF TAJIK >60 Normal >=[address] [facility] Comment on above: Performed By: #### A 1C #### [facility] [address] [address] [address] Ambrosio Ramirez Globulin (S) [Mass/Vol] 3.3 g/dL Normal [facility] Comment on above: Performed By: #### A 1C #### [facility] [address] [place] [address] Dr. Ambrosio Ramriez Glucose [Mass/Vol] 88 mg/dL Normal 74-106 [facility] Comment on above: Performed By: #### A 1C #### [facility] [address] [address] [address] Ambrosio Ramirez Potassium [Moles/Vol] 4.3 mmol/L Normal 3.5-5.[address] [facility] Comment on above: Performed By: #### A 1C #### [facility] [address] [place] [address] Dr. Ambrosio Ramirez Protein [Mass/Vol] 7.5 g/dL Normal 6.4-8.2 [facility] Comment on above: Performed By: #### A 1C #### [facility] [address] [place] [address] Dr. Ambrosio Ramirez Sodium [Moles/Vol] 142 mmol/L Normal 136-145 [facility] Comment on above: Performed By: #### A 1C #### [facility] [address] [place] [address] Dr. Ambrosio Ramirez Urea nitrogen [Mass/Vol] 9.0 mg/dL Normal 7.0-18.[address] [facility] Comment on above: Performed By: #### A 1C #### [facility] [address] [place] [address] Dr. Ambrosio Ramirez Urea nitrogen/Creatinine [Mass ratio] 16.7 mg/mg Normal [facility] Comment on above: Performed By: #### A 1C #### [facility] [address] [place], [place] [address] Dr. Ambrosio Ramirez TSHon 03-12-2022 TSH 1.934 uIU/mL Normal 0.358-3.740 [facility] Comment on above: Performed By: #### A 1C #### [facility] [address] [address] [address] Ambrosio Ramirez XR TSPINE 3 VIEWSon [...] GEORGE CATALAN Date: 2022-03-12 17:[address] [facility]on SARS-CoV-2 (COVID-19) RNA JAYY+probe Ql (Unsp spec) Not detected Normal NOT DETECTED [facility] Comment on above: Result Comment: When [...] for this test is supported by the [employer] of [employer] and Human Service's declaration that [...] used). Performed By: #### C VDTB #### [facility] [address] [place] [address] Dr. Ambrosio Ramirez INFLUENZA A AND B AGon 01-27 INFLUENZA A AG Negative Normal NEGATIVE SEE COMMENT [facility] Comment on above: Performed By: #### I NFLUAB #### [facility] [address] [place] [address] Dr. Ambrosio Ramirez INFLUENZA B AG Negative Normal NEGATIVE SEE COMMENT [facility] Comment on above: Performed By: #### I NFLUAB #### [facility] [address] [place] [address] Dr. Ambrosio Ramirez INTERNAL CONTROLS Within Normal Limits Normal Wi thin Normal Limits [facility] Comment on above: Performed By: #### I NFLUAB #### [facility] [address] [place] [address] Dr. Ambrosio Ramirez XR CHEST 2 Von [...] GEORGE ROWE Date: 2022-01-27 14:[address] [facility] RPR QUANTon 08-26-2021 Rapid Plasma Reagin, Quant Non-Reactive Normal NonRea<1:[address] [facility] Comment on above: Result Comment: Plea se Note: This test does not meet current guidelines for screening and diagnosis of syphilis. This test is intended for following treatment response in patients being treated for syphilis infection. To screen for syphilis infection, a reflex cascade that includes both RPR and a treponema-specific assay should be utilized, such as Treponema pallidum (Syphilis) Screening [place] (195584) or Rapid Plasma Reagin (RPR) Test With Reflex to Quantitative RPR and Confirmatory Treponema pallidum Antibodies (236820). Performed By: #### R PRQ #### [facility] [address] [place] [address] Dr. Ambrosio Ramirez HEP B SURFACE ANTIGEN SCREEN on 08-24-2021 HBsAg Screen Negative Normal Negative [facility] Comment on above: Performed By: #### H BSANS #### [facility] [address] [place] [address] Dr. Ambrosio Ramirez HEPATITIS C ANTIBODYon 08-24 Hep C Virus Ab <0.1 Normal 0.0-0.9 [facility] Comment on above: Result Comment: [...] Hepatitis C Virus (HCV) RNA, Diagnosis, JAYY (897023) and Hepatitis C Virus (HCV) Antibody with reflex to Quantitative Real-time PCR (052879). Performed By: #### H CV #### [facility] [address] [place] [address] Dr. Ambrosio Ramirez INSULINon 08-23-2021 Insulin 5.0 uIU/mL Normal 2.6-24.9 [facility] Comment on above: Performed By: #### A 1C #### [facility] [address] [place] [address] Dr. Ambrosio Ramirez OCC BLD IMMUNO SCREENon OCCULT BLOOD Negative Normal NEGATIVE [facility] Comment on above: Performed By: #### O BSCRN #### [facility] [address] [place] [address] Dr. Ambrosio Ramirez CBC AUTO DIFFon 08-22-2021 BASO # 0.1 103/ul Normal 0.0-0.1 [facility] Comment on above: Performed By: #### O BSCRN #### [facility] [address] [place] [address] Dr. Ambrosio Ramirez Basophils/100 WBC (Bld) 1.0 % Normal 0.2-2.0 [facility] Comment on above: Performed By: #### O BSCRN #### [facility] [address] [place] [address] Dr. Ambrosio Ramirez EO # 0.1 103/ul Normal 0.0-0.7 [facility] Comment on above: Performed By: #### O BSCRN #### [facility] [address] [place] [address] Dr. Ambrosio Ramirez Eosinophils/100 WBC (Bld) 1.8 % Normal 0.9-7.0 [facility] Comment on above: Performed By: #### O BSCRN #### [facility] [address] [place] [address] Dr. Ambrosio Ramirez Erythrocyte distribution width (RBC) [Ratio] 11.9 % Normal 11.0-15.0 [facility] Comment on above: Performed By: #### O BSCRN #### [facility] [address] [place] [address] Dr. Ambrosio Ramirez Hematocrit (Bld) [Volume fraction] 48.6 % Critically high 36.0-48.0 [facility] Comment on above: Performed By: #### O BSCRN #### [facility] [address] [place] [address] Dr. Ambrosio Ramirez Hemoglobin (Bld) [Mass/Vol] 16.3 g/dL Critically high 12.0-16.0 [facility] Comment on above: Performed By: #### O BSCRN #### [facility] [address] [place] [address] Dr. Ambrosio Ramirez IG # 0.03 10e3/ul Normal 0.00-0.03 [facility] Comment on above: Performed By: #### O BSCRN #### [facility] [address] [place] [address] Dr. Ambrosio Ramirez IG % 0.6 % Critically high 0.0-0.5 [facility] Comment on above: Performed By: #### O BSCRN #### [facility] [address] [place] [address] Dr. Ambrosio Ramirez LYMPH # 2.4 103/ul Normal 1.2-3.8 [facility] Comment on above: Performed By: #### O BSCRN #### [facility] [address] [place] [address] Dr. Ambrosio Ramirez Lymphocytes/100 WBC (Bld) 46.9 % Normal 20.5-60.0 [facility] Comment on above: Performed By: #### O BSCRN #### [facility] [address] [place] [address] Dr. Ambrosio Ramirez MANUAL DIFF REQ NO Normal [facility] Comment on above: Performed By: #### O BSCRN #### [facility] [address] [place] [address] Dr. Ambrosio Ramirez MCH (RBC) [Entitic mass] 34.9 pg Critically high 26.7-34.0 [facility] Comment on above: Performed By: #### O BSCRN #### [facility] [address] [place] [address] Dr. Ambrosio Ramirez MCHC (RBC) [Mass/Vol] 33.5 g/dL Normal 29.9-35.2 [facility] Comment on above: Performed By: #### O BSCRN #### [facility] [address] [place] [address] Dr. Ambrosio Ramirez MCV (RBC) [Entitic vol] 104.1 fL Critically high 81.0-99.0 [facility] Comment on above: Performed By: #### O BSCRN #### [facility] [address] [place] [address] Dr. Ambrosio Ramirez MONO # 0.4 103/ul Normal 0.3-0.8 [facility] Comment on above: Performed By: #### O BSCRN #### [facility] [address] [place] [address] Dr. Ambrosio Ramirez Monocytes/100 WBC (Bld) 8.2 % Normal 1.7-12.0 [facility] Comment on above: Performed By: #### O BSCRN #### [facility] [address] [place] [address] Dr. Ambrosio Ramirez NEUT # 2.1 103/ul Normal 1.4-6.5 [facility] Comment on above: Performed By: #### O BSCRN #### [facility] [address] [place] [address] Dr. Ambrosio Ramirez Neutrophils/100 WBC (Bld) 41.5 % Critically low 43.0-75.0 [facility] Comment on above: Performed By: #### O BSCRN #### [facility] [address] [place] [address] Dr. Ambrosio Ramirez Platelet mean volume (Bld) [Entitic vol] 9.3 fL Critically low 9.5-13.5 [facility] Comment on above: Performed By: #### O BSCRN #### [facility] [address] [place] [address] Dr. Ambrosio Ramirez PLT 210 103/ul Normal 150-450 [facility] Comment on above: Performed By: #### O BSCRN #### [facility] [address] [place] [address] Dr. Ambrosio Ramirez RBC 4.67 106/ul Normal 4.20-5.40 [facility] Comment on above: Performed By: #### O BSCRN #### [facility] [address] [place] [address] Dr. Ambrosio Ramirez WBC 5.0 103/ul Normal 4.0-11.0 [facility] Comment on above: Performed By: #### O BSCRN #### [facility] [address] [place] [address] Dr. Ambrosio Ramirez FREE THYROXINE INDEX T7on -2021 FTI 2.72 Normal 1.30-4.[address] [facility] Comment on above: Performed By: #### O BSCRN #### [facility] [address] [place] [address] Dr. Ambrosio Ramirez T3U 32.0 % Normal 30.0-39.0 [facility] Comment on above: Performed By: #### O BSCRN #### [facility] [address] [place] [address] Dr. Ambrosio Ramirez T4 [Mass/Vol] 8.50 ug/dL Normal 4.80-13.90 [facility] Comment on above: Performed By: #### O BSCRN #### [facility] [address] [place] [address] Dr. Ambrosio Ramirez GLYCOHEMOGLOBIN A1Con 2021 ADA RECOMMENDATION SEE BELOW Normal [facility] Comment on above: Result Comment: ADA RECOMMENDED LIMIT 4.0 - 6.0 ADA THERAPEUTIC TARGET < 7.0 ACTION SUGGESTED > 7.0 Performed By: #### A 1C #### [facility] [address] [place] [address] Dr. Ambrosio Ramirez Glucose [Mass/Vol] 108 mg/dL Normal [facility] Comment on above: Performed By: #### A 1C #### [facility] [address] [place] [address] Dr. Ambrosio Ramirez HbA1c (Bld) [Mass fraction] 5.4 % Normal 4.5-6.2 [facility] Comment on above: Performed By: #### A 1C #### [facility] [address] [place] [address] Dr. Ambrosio Ramirez HIV 1/2 RAPID (EXPOSURE ONLY )on 08-22-2021 HIV AB Negative Normal [facility] Comment on above: Performed By: #### A 1C #### [facility] [address] [place] [address] Dr. Ambrosio Ramirez HIV AG Negative Normal [facility] Comment on above: Performed By: #### A 1C #### [facility] [address] [place] [address] Dr. Ambrosio Ramirez INTERNAL CONTROLS Within Normal Limits Normal Wi thin Normal Limits [facility] Comment on above: Performed By: #### A 1C #### [facility] [address] [place] [address] Dr. Ambrsoio Ramirez RAPID HIV INFO SEE BELOW Normal [facility] Comment on above: Result Comment: This test is used for the initial screening of the exposure source. Confirmation of all results will be obtained through reference lab testing. Performed By: #### A 1C #### [facility] [address] [address] [address] Ambrosio Ramirez IRONon 08-22-2021 Iron [Mass/Vol] 137.0 ug/dL Normal 50.0-170.0 [facility] Comment on above: Performed By: #### I HAMLET #### [facility] [address] [address] [address] Ambrosio aRmirez LIPID PROFILEon 08-22-2021 CHOL-HDL RATIO NORM SEE BELOW Normal [facility] Comment on above: Result Comment: 3.3 - 4.4 LOW RISK 4.4 - 7.1 AVERAGE RISK 7.1 - 11.0 MODERATE RISK >11.0 HIGH RISK Performed By: #### O BSCRN #### [facility] [address] [address] [address] Ambrosio Ramirez Cholesterol [Mass/Vol] 251 mg/dL Critically high <=200 [facility] Comment on above: Performed By: #### O BSCRN #### [facility] [address] [address] [address] Ambrosio Ramirez Cholesterol in HDL [Mass/Vol] 67 mg/dL Critically high 40-60 [facility] Comment on above: Performed By: #### O BSCRN #### [facility] [address] [address] [address] Ambrosio Ramirez Cholesterol in LDL [Mass/Vol] 154.8 mg/dL Normal [facility] Comment on above: Performed By: #### O BSCRN #### [facility] [address] [address] [address] Ambrosio Ramirez Cholesterol.total/Cho lesterol in HDL [Mass ratio] 3.7 {ratio} Normal [facility] Comment on above: Performed By: #### O BSCRN #### [facility] [address] [place] [address] Dr. Ambrosio Ramirez HDL NORMAL > or = 60 mg/dl - LOW CARDIOVASCULAR RISK <40 mg/dl - HIGH CARDIOVASCULAR RISK Normal [facility] Comment on above: Performed By: #### O BSCRN #### [facility] [address] [address] [address] Ambrosio Ramirez LDL CALC NORMAL SEE BELOW Normal [facility] Comment on above: Result Comment: <100 mg/dl OPTIMAL 100 - 129 mg/dl NEAR OR ABOVE OPTIMAL 130 - 159 mg/dl BORDERLINE HIGH 160 - 189 mg/dl HIGH >190 mg/dl VERY HIGH Performed By: #### O BSCRN #### [facility] [address] [address] [address] Ambrosio Ramirez Triglyceride [Mass/Vol] 146 mg/dL Normal <=150 [facility] Comment on above: Performed By: #### O BSCRN #### [facility] [address] [address] [address] Ambrosio Ramirez VLDL CALC 29.2 mg/dL Normal [facility] Comment on above: Performed By: #### O BSCRN #### [facility] [address] [place] [address] Dr. Ambrosio Ramirez PROF 14(COMP METB)on 022 Albumin [Mass/Vol] 4.3 g/dL Normal 3.4-5.0 [facility] Comment on above: Performed By: #### O BSCRN #### [facility] [address] [address] [address] Ambrosio Ramirez Albumin/Globulin [Mass ratio] 1.2 {ratio} Normal [facility] Comment on above: Performed By: #### O BSCRN #### [facility] [address] [address] [address] Ambrosio Ramirez ALP [Catalytic activity/Vol] 57 U/L Normal 46-116 [facility] Comment on above: Performed By: #### O BSCRN #### [facility] [address] [address] [address] Ambrosio Ramirez ALT [Catalytic activity/Vol] 56 U/L Normal 14-59 [facility] Comment on above: Performed By: #### O BSCRN #### [facility] [address] [address] [address] Ambrosio Ramirez Anion gap [Moles/Vol] 11.5 mmol/L Normal [facility] Comment on above: Performed By: #### O BSCRN #### [facility] [address] [address] [address] Ambrosio Ramirez AST [Catalytic activity/Vol] 75 U/L Critically high 15-37 [facility] Comment on above: Performed By: #### O BSCRN #### [facility] [address] [address] [address] Ambrosio Ramirez Bilirubin [Mass/Vol] 0.4 mg/dL Normal 0.2-1.0 [facility] Comment on above: Performed By: #### O BSCRN #### [facility] [address] [address] [address] Ambrosio Ramirez Calcium [Mass/Vol] 8.7 mg/dL Normal 8.5-10.1 [facility] Comment on above: Performed By: #### O BSCRN #### [facility] [address] [place] [address] Dr. Ambrosio Ramirez Chloride [Moles/Vol] 105 mmol/L Normal 98-107 [facility] Comment on above: Performed By: #### O BSCRN #### [facility] [address] [place] [address] Dr. Ambrosio Ramirez CO2 [Moles/Vol] 30.3 mmol/L Normal 21.0-32.0 [facility] Comment on above: Performed By: #### O BSCRN #### [facility] [address] [place] [address] Dr. Ambrosio Ramirez Creatinine [Mass/Vol] 0.67 mg/dL Normal 0.55-1.02 [facility] Comment on above: Performed By: #### O BSCRN #### [facility] [address] [address] [address] Ambrosio Ramirez EGFR-AF TAJIK >60 Normal >=60 [facility] Comment on above: Performed By: #### O BSCRN #### [facility] [address] [address] [address] Ambrosio Ramirez EGFR-NON AF TAJIK >60 Normal >=[address] [facility] Comment on above: Performed By: #### O BSCRN #### [facility] [address] [address] [address] Ambrosio Ramirez Globulin (S) [Mass/Vol] 3.7 g/dL Normal [facility] Comment on above: Performed By: #### O BSCRN #### [facility] [address] [address] [address] Ambrosio Ramirez Glucose [Mass/Vol] 93 mg/dL Normal 74-106 [facility] Comment on above: Performed By: #### O BSCRN #### [facility] [address] [place] [address] Dr. Ambrosio Ramirez Potassium [Moles/Vol] 4.8 mmol/L Normal 3.5-5.1 [facility] Comment on above: Performed By: #### O BSCRN #### [facility] [address] [place] [address] Dr. Ambrosio Ramirez Protein [Mass/Vol] 8.0 g/dL Normal 6.4-8.2 [facility] Comment on above: Performed By: #### O BSCRN #### [facility] [address] [place] [address] Dr. Ambrosio Ramirez Sodium [Moles/Vol] 142 mmol/L Normal 136-145 [facility] Comment on above: Performed By: #### O BSCRN #### [facility] [address] [place] [address] Dr. Ambrosio Ramirez Urea nitrogen [Mass/Vol] 8.0 mg/dL Normal 7.0-18.0 [facility] Comment on above: Performed By: #### O BSCRN #### [facility] [address] [place] [address] Dr. Ambrosio Ramirez Urea nitrogen/Creatinine [Mass ratio] 11.9 mg/mg Normal [facility] Comment on above: Performed By: #### O BSCRN #### [facility] [address] [place] [address] Dr. Ambrosio Ramirez TSHon 08-22-2021 TSH 2.117 uIU/mL Normal 0.358-3.740 [facility] Comment on above: Performed By: #### O BSCRN #### [facility] [address] [address] [address] Ambrosio Ramirez XR CSPINE MIN 4 [...] Cervical fusion hardware with no mechanical failure [id number] degenerative changes of the cervical thoracic spine Electronically authenticated by: GEORGE ROWE Date: 2021-08-22 21:[address] [facility] Vital Signs Date Time Vital Sign Value Performing Clinician Facility 05-09-2022 10:14-0400 Diastolic blood pressure 85 mm[Hg] [employer] Ama Edwards Work Phone: [facility] 05-09-2022 10:14-0400 Heart rate 99 /min [employer] Ama Edwards Work Phone: [facility] 05-09-2022 10:14-0400 Respiratory rate 18 /min [employer] Ama Edwards Work Phone: [facility] 05-09-2022 10:14-0400 SaO2% (BldA) [Mass fraction] 99 % [employer]C Ama Edwards Work Phone: [facility] 05-09-2022 10:14-0400 Systolic blood pressure 124 mm[Hg] [employer] CONSULT[employer]C Ama Edwards Work Phone: [facility] 05-09-2022 08:04-0400 Body height 180.34 cm [employer]SULT[employer]C Ama Edwards Work Phone: [facility] 05-09-2022 08:04-0400 Body weight 58.96 kg [employer]SULT[employer]C Ama Edwards Work Phone: [facility] 05-01-2022 11:15-0500 Body height Imad Asaad Other [facility] Other 05-01-2022 11:15-0500 Body mass index (BMI) [Ratio] 18.13 kg/m2 Imad Asaad Other [facility] Other 05-01-2022 11:15-0500 Body weight 58.97 kg Imad Asaad Other [facility] Other 05-01-2022 11:15-0500 Diastolic blood pressure 102 mm[Hg] Imad Asaad Other [facility] Other 05-01-2022 11:15-0500 Respiratory rate 16 /min Imad Asaad Other [facility] Other 05-01-2022 11:15-0500 Systolic blood pressure 158 mm[Hg] Imad Asaad Other [employer] Other Encounters Encounter Date Encounter Type Care [...] Start: 05-09-2022 End: 05-09-2022 ambulatory Ama Edwards Facility:[facility] Start: 05-09-2022 End: 05-09-2022 Admission to same day surgery center [employer]C Ama Edwards Work Phone: [facility] Work Phone: Start: 05-09-2022 End: 05-09-2022 ambulatory [employer] CON[employer]C Ama Edwards Work Phone: [facility] Work Phone: Start: 05-02-2022 End: 05-02-2022 ambulatory Imad Asaad Other [facility] Other Start: 05-02-2022 Telephone encounter Imad Asaad [facility] Start: 05-01-2022 End: 05-01-2022 ambulatory Imad Asaad Other [employer] Other Start: 05-01-2022 Office consultation new/estab patient 60 min Imad Asaad [facility] Start: 03-25-2022 End: 03-26-2022 ambulatory AMA EDWARDS Facility:[facility] Start: 03-12-2022 End: 03-13-2022 ambulatory AMA EDAWRDS Facility:[facility] Start: 01-27-2022 End: 01-28-[address] GEORGE ROWE Facility:[facility] Start: 09-12-2021 ambulatory AMA EDWARDS Facility: [facility] Start: 08-23-2021 End: 08-23-2021 ambulatory AMA EDWARDS Facility:[facility] Start: 08-23-2021 End: 08-23-2021 ambulatory LOLIS BOB Facility:[facility] Start: 08-22-2021 End: 08-23-2021 ambulatory AMA EDWARDS Facility:[facility] Procedures Date Procedure Procedure Detail Performing Clinician Start: 05-09-2022 Esophagogastroduodenoscopy [employer]C Ama patel Work Phone: Screening for malign ant neoplasm of colon Imad Asaad Other Plan of Treatment Date Care Activity Detail Author Start: 05-09-2022 [facility] Patient Education Colon Polyps H emorrhoids (DC) Diverticulosis (DC) Gastritis (DC) [facility] Work Phone: Payers Date Payer Category Payer Self-pay 2022 Unknown 1960 Unknown [id number] 2.16.84 [id number] 1960 Unknown [id number] 2.16.84 [id number] 1960 Unknown [id number] 2.16.84 [id number] 1960 Unknown [id number] 2.16.84 0.1.179106.3.579.2.593 1960 Unknown [id number] 2.16.84 0.1.021760.3.579.2.593 1960 Unknown [id number] 2.16.84 0.1.537685.3.579.2.593 1960 Unknown [id number] 2.16.84 0.1.709999.3.579.2.593 1960 Unknown [id number] 2.16. [id number] 1960 Unknown [id number] 2.16. 840.1.849058.3.579.2.196 1960 Unknown [id number] 2.16. 840.1.619481.3.579.2.196 1960 Unknown [id number] 2.16. 840.1.173627.3.579.2.196 1960 Unknown [id number] 2.16. 840.1.390414.3.579.2.196 1960 Unknown [id number] 2.16. 840.1.300903.3.579.2.196 1960 Unknown [id number] 2.16. 840.1.056226.3.579.2.196 1957 Medicare [id number] 1957 Unknown [id number] 1957 Unknown [id number] 1957 Unknown [id number] Unknown [id number] 2.16.8 [id number] Social History Date Type Detail Facility Start: 05-09-2022 Tobacco smoking status NHIS Smoker (finding) [facility] Start: 1960 Sex Assigned At Female F [facility] Sex Assigned At Sex Assigned At Bir [facility] Other Goals Date Patient Goal Desired Activity /State Procedure note 05-09-2022 Note Date & Type Note Facility 05-09-2022 Procedure note [facility] Evaluation note 05-01-2022 Note Date & Type Note Facility 05-01-2022 Evaluation note Encounter Date Diagnosis Assessment Notes Apr, Dysphagia (ICD-10 - R13.10) Apr, Weight loss (ICD-10 - R63.4) Apr, Colon cancer screening (ICD-10 - Z12.11) [facility] Other Evaluation note Note Date & Type Note Facility Evaluation note No assessment information availa ble [facility] Work Phone: Evaluation note Note Date & Type Note Facility Evaluation note No Information [employer] Other History general Narrative - Reported Note Date & Type Note Facility History general Narrative - Reported Type Medical History Anxiety/Depression Surgical History Neck surgery Surgical History Tonsillectomy Hospitalization History See above [facility] Other Hospital Discharge instructions Note Date & [...] -Follow up with PCP. - Office number [phone]. [facility] Work Phone: Chief Complaint and [...] section and content) DATE CREATED AUTHOR 05/20/2022 [facility] DATE CREATED AUTHOR AUTHOR'S ORGANIZ ATION 07/02/2022 [facility] DATE CREATED AUTHOR AUTHOR'S ORGANIZ ATION 10/06/2023 [facility] DATE CREATED AUTHOR AUTHOR'S ORGANIZ ATION 11/24/2023 [facility] FOR RECORDS PERTAINING TO PATIENTS [...] BE BASED ON THE PRIMARY CLINICAL RECORDS. [employer] [facility]. provides no warranty or guarantee of the accuracy or completeness of information in this document.
--- NOTE | 2023-12-14 17:52 | P.CN_ITS ---
Consult Note: HPI Data of Consult Patient: known to practice within the last 3 years Consult date: 12/14/23 Requesting Physician: Manuel Reynaga MD Primary Care Provider: SOLITARIO EDWARDS Consult Narrative Reason for consult: neck, bilateral arm pain Narrative: 63yof who presents for assessment. continues to have neck and bilateral arm pain. fused from c4-7. recently saw spine surgeon, who did not recommend surgery at this time. imaging significant for cervical spondylosis and stenosis at c3-4. recently underwent lumbar fusion and is recovering well from this. was given tramadol by spine surgeon, which helps pain. also on xanax. continues in provider directed home exercise course >6 weeks, without lasting benefit. denies adverse med side effects. cc:: CC: Manuel Reynaga MD Review of Systems ROS Status of ROS 10 or more systems reviewed and unremark able except as noted in history and below PFSH PFSH Medical History Dyspnea on exertion ?R06.09 - Other forms of dyspnea (ICD-10) Colon polyp ?K63.5 - Polyp of colon (ICD-10) Fibromyalgia ?M79.7 - Fibromyalgia (ICD-10) Back pain ?M54.9 - Dorsalgia, unspecified (ICD-10) Arthritis ?M19.90 - Unspecified osteoarthritis, unspecified site (ICD-10) Claustrophobia ?F40.240 - Claustrophobia (ICD-10) Insomnia ?G47.00 - Insomnia, unspecified (ICD-10) Heartburn ?R12 - Heartburn (ICD-10) Diverticulitis ?K57.92 - Diverticulitis of intestine, part unspecified, without perforation or abscess without bleeding (ICD-10) Degeneration of lumbosacral intervertebral disc ?M51.37 - Other intervertebral disc degeneration, lumbosacral region (ICD-10) Spondylolisthesis, lumbar region ?M43.16 - Spondylolisthesis, lumbar region (ICD-10) Cervical disc displacement ?M50.20 - Other cervical disc displacement, unspecified cervical region (ICD- 10) Spinal stenosis, cervical region ?M48.02 - Spinal stenosis, cervical region (ICD-10) Other cervical disc degeneration, high cervical region ?M50.31 - Other cervical disc degeneration, high cervical region (ICD-10) Anxiety ?F41.9 - Anxiety disorder, unspecified (ICD-10) Depression ?F32.A - Depression, unspecified (ICD-10) Bronchitis ?J40 - Bronchitis, not specified as acute or chronic (ICD-10) HTN (hypertension) ?I10 - Essential (primary) hypertension (ICD-10) Intervertebral disc degeneration Myofascial pain ?M79.18 - Myalgia, other site (ICD-10) Cervical radiculopathy ?M54.12 - Radiculopathy, cervical region (ICD-10) Lumbar stenosis with neurogenic claudication ?M48.062 - Spinal stenosis, lumbar region with neurogenic claudication (ICD- 10) Chronic use of benzodiazepine for therapeutic purpose ?Z79.899 - Other penitentiary (current) drug therapy (ICD-10) Greater trochanteric bursitis of both hips ?M70.61 - Trochanteric bursitis, right hip (ICD-10) ?M70.62 - Trochanteric bursitis, left hip (ICD-10) Muscle spasm ?M62.838 - Other muscle spasm (ICD-10) Cervical postlaminectomy syndrome ?M96.1 - Postlaminectomy syndrome, not elsewhere classified (ICD-10) Cervical spondylosis ?M47.812 - Spondylosis without myelopathy or radiculopathy, cervical region (ICD-10) Upper back pain ?M54.9 - Dorsalgia, unspecified (ICD-10) Neck pain ?M54.2 - Cervicalgia (ICD-10) Smoker ?F17.200 - Nicotine dependence, unspecified, uncomplicated (ICD-10) Surgical History H/O lumbosacral spine surgery ?Z98.890 - Other specified postprocedural states (ICD-10) History of colonoscopy ?Z98.890 - Other specified postprocedural states (ICD-10) S/P epidural steroid injection ?Z92.241 - Personal history of systemic steroid therapy (ICD-10) History of tonsillectomy ?Z90.89 - Acquired absence of other organs (ICD-10) H/O cervical spine surgery ?Z98.890 - Other specified postprocedural states (ICD-10) Family History Other Family history of breast cancer Social History Within the past year, how often did you have a drink containing alcohol: 2-4 times a month Smoking status: Current every day smoker What tobacco products do you use: cigarettes Packs per day: 1 Years smoked: 45 Smoking pack-years: 45.00 Highest level of school completed/degree received: 9th grade Meds Home Medications and Allergies Home Medications ?Medication ?Instructions ?Recorded ?Confirmed ?Type alprazolam 0.25 mg tablet (Xanax) 0.25 mg PO BID PRN anxiety 11/10/22 10/09/23 History omeprazole 40 mg capsule,delayed 40 mg PO DAILY 08/31/23 10/09/23 History release albuterol sulfate 90 mcg/actuation 2 inh inhalation Q6H PRN shortness 09/25/23 10/09/23 History aerosol inhaler of breath or wheezing trazodone 50 mg tablet 50 mg PO QPM PRN sleep 09/25/23 10/09/23 History orphenadrine citrate 100 mg 100 mg PO BID PRN Muscle spasms 30 10/11/23 Rx tablet,extended release days #60 tabs tramadol 50 mg tablet 50 mg PO Q4H PRN pain 12/14/23 12/14/23 History Allergies Allergy/AdvReac Type Severity Reaction Status Date / Time No Known Drug Allergies Allergy Verified 09/25/23 12:58 Exam Narrative Exam Narrative: Psych-alert and oriented x 3.? Attentive and appropriate, constitutionally normal, displays normal mood and affect per situation.? There are no obvious deficits in memory, reasoning, or intellect.? Skin-no obvious rashes, bruising, or erythema noted to the patient's area of pain.? Extremities-upper extremities are warm with minimal edema and palpable pulses. Cervical- tenderness to palpation noted in the cervical spine and paraspinal musculature.? Pain is elicited with flexion, extension, and lateral rotation of the cervical spine.? Range of motion is diminished due to pain. Facet loading maneuvers are negative.? Strength-unremarkable and within normal limits with the exception to the bilateral biceps. Sensory-no notable sensory deficits in the bilateral upper extremities to touch or pinprick with the exception to decreased sensation to the bilateral C3, 4, 5 dermatomal distribution.? Coordination remains intact.? Gait remains non-antalgic. Assessment and Plan Assessment and Plan (1) Cervical postlaminectomy syndrome: (2) Cervical radiculopathy: (3) Spinal stenosis, cervical region: Plan 63yof who presents for assessment. failed conservative measures, as noted. imaging reviewed, as noted. given symptoms and imaging, prudent to attempt bilateral c3-4 tfesi under fluoroscopic guidance, as advised by spine surgeon. will utilize ivcs. she is in agreement. meds reviewed. discussed that not an opioid candidate due to concurrent benzo use. follow up after procedure.
== END 2023-12-14 12:53 | disposition home or self-care (01) ==
LOC: PM 12:52
PROVIDERS: PCP Nurse Practitioner Family; Visit Provider Anesthesiology
DX: M96.1 Postlaminectomy syndrome, not elsewhere classified (principal); M54.12 Radiculopathy, cervical region; M48.02 Spinal stenosis, cervical region
CPT/HCPCS: G0463

== ENCOUNTER 2023-12-25 11:06 | Outpatient (OUT) | payer MEDICARE, OTHER, MEDICAID, SELFPAY ==
--- NOTE | 2023-12-25 | XR_ITS ---
The [address] [address] Patient Name: CARLA ABDI MRN: [facility]:[id number] date: 1960 Sex: F Assigned Patient Location: Current Patient Location: Accession/Order Number: [id number] Exam Date: 12/25/2023 11:07 Report Date: 12/27/2023 06:59 At the request of: SHAD REID Procedure: XR lumbar spine 2-3V EXAMINATION: XR lumbar spine 2-3V HISTORY: LUMBAR SPINE PAIN COMPARISON: XR lumbar spine 11/13/2023 FINDINGS: BONES: Prior posterior mechanical fusion L4-L5 via bilateral pedicle screws and rods. Stable grade 2 anterolisthesis of L4 on 5 and posterior decompression of L4. DISC SPACES: Marked narrowing L4-L5. Moderate narrowing L5-S1. PARASPINOUS: Negative. No paraspinous abnormality is seen. OTHER: Negative. XR/XR lumbar spine 2-3V IMPRESSION: 1. Stable surgical changes and degenerative changes. Electronically authenticated by: DENNY RINCON Date: 12/27/2023 06:59
--- OUTSIDE RECORDS SUMMARY | 2023-12-25 11:10 | XMS_ITS | CCD ---
Author Organization [facility] CliniSyar Care Team Providers Care Pipe Buffer Name Role Phone MD Nesha Bryant Attending Provider [phone] JIE Edwards Primary Care Provider Asaad, Imad [...] AMA Consulting Unavailable JERRY, AMA Admitting Unavailable ZIEBSAUL, DR DENNY Franz Consulting Unavailable [...] LEON, Manuel Yoo Attending Unavailable Juhi LEON, Andkrishna Yoo Attending Unavailable Manuel Reynaga MD Attending Unavailable Thompson Diane Primary Care Physician LEIGH CLARK Attending Unavailable Thompson Diane Referring [...] 30 days Apr, Active polyethylene glycol 3350 [id number] mg / potassium chloride 2970 mg / sodium bicarbonate 6740 mg / sodium chloride 5860 mg / sodium sulfate 61295 mg powder for oral solution (2 sources) Osmotic Laxative Start: 05-01-2022 PEG-3350/Electrol ytes 236 GM as directed Orally once daily for 1 days Apr, Active Problems Active Problems Problem Classification Problem Date Documented Da te Episodic/Chronic Anxiety disorders (1 source) Anxiety disorder 12-16-2023 Chronic Chronic obstructive pulmonary disease and bronchiectasis (1 source) Chronic obstructive lung disease 12-16-2023 Chronic Disorders of lipid metabolism (2 sources) Hyperlipidemia, unspecified; Translations: [Hyperlipidemia] Onset: 3 12-16-2023 Chronic Esophageal disorders (1 source) Gastroesophageal reflux disease without esophagitis 12-16-2023 Chronic Genitourinary symptoms and ill-defined conditions (1 source) Retention of urine 12-16-2023 Episodic Osteoarthritis (1 source) Osteoarthritis 12-16-2023 Chronic Other gastrointestinal disorders (2 sources) Diarrhea; Translations: [Diarrhea, unspecified] Episodic Other gastrointestinal disorders (2 sources) Dysphagia; Translations: [Dysphagia, unspecified] Episodic Other nutritional; endocrine; and metabolic disorders (2 sources) Weight loss; Translations: [Abnormal weight loss] Episodic Residual codes; unclassified (1 source) Insomnia 12-16-2023 Episodic Spondylosis; intervertebral disc disorders; other back problems (2 sources) Other cervical disc degeneration, unspecified cervical region; Translations: [Degeneration of lumbar intervertebral disc] Onset: 2 12-16-2023 Chronic Spondylosis; intervertebral disc disorders; other back problems (4 sources) Cervicalgia; Translations: [Pain in thoracic spine] Onset: 2 12-16-2023 Episodic Substance-related disorders (6 sources) Nicotine dependence, unspecified, uncomplicated; Translations: [Nicotine dependence] Onset: 2 Chronic Unclassified (1 source) Encounter for screening for malignant neoplasm of colon; Translations: [Encounter for screening for malignant neoplasm of colon] Onset: 3 Unclassified (3 sources) CONTACT W/AND (SUSP) EXPOS COVID-19; Translations: [CONTACT W/AND (SUSP) EXPOS COVID-19] Onset: 2 Unclassified (1 source) COUGH, UNSPECIFIED; Translations: [COUGH, UNSPECIFIED] Onset: 2 Past or Other Problems Problem Classification Problem [...] POTENTL HAZ BDY FLUID] Onset: 08-23-2021 Episodic Unclassified (1 source) CONTACT W/AND (SUSP) EXPOS COVID-19; Translations: [CONTACT W/AND (SUSP) EXPOS COVID-19] Onset: 01-27-2022 Results Test Name Value Interpretation Reference Range Facility Ernie 05-09-2022 L Specimen: [id number] Received: 05/09/22 Status: EDUARD Zaragoza Num: [id number] Spec Type: Surgical Subm Dr: Nesha Bryant MD Tissues: A Gastric Biopsy (GASTRIC) B Esophagus Biopsy (DISTAL ESOPHAGUS) C Esophagus Biopsy (PROXIMAL ESOPHAGUS) D Colon Biopsy (CECAL POLYP) E Colon Biopsy (SIGMOID POLYP) F Colon Biopsy (RECTAL POLYPS X3) Procedures: ROSI/Barbara, Gross/Micro L4/6 Age/ Patient Sex Location Account Attending Physician Nancy Joyce 61/F [id number] Nesha Bryant MD SPEC NUM: [id number] RECD: 05/09/22 STATUS: EDUARD NIK NUM: [id number] KATY: 05/09/22- SUBM DR: Nesha Bryant MD ENTERED: 05/09/[address] [facility] [address]: SPEC TYPE: Surgical DEPT: S [...] mucosal fold. - Negative for adenoma/dysplasia. Specimen: [id number] Received: 05/09/22 Status: EDUARD Nik Num: [id number] Spec Type: Surgical Subm Dr: Nesha Bryant MD Tissues: A Gastric Biopsy (GASTRIC) B Esophagus Biopsy (DISTAL ESOPHAGUS) C Esophagus Biopsy (PROXIMAL ESOPHAGUS) D Colon Biopsy (CECAL POLYP) E Colon Biopsy (SIGMOID POLYP) F Colon Biopsy (RECTAL POLYPS X3) Procedures: , Gross/Micro L4/6 Patient: Nancy Joyce [id number] (Continued) Specimen: [id number] Received: 05/09/22 (Continued) Pathological Diagnosis (Continued) Signed (signature on file) Carin Oliveros MD 05/12/22 1130 Specimen: [id number] Received: 05/09/22 Status: EDUARD Zaragoza Num: [id number] Spec Type: Surgical Subm Dr: Nesha Bryant MD Tissues: A Gastric Biopsy (GASTRIC) B Esophagus Biopsy (DISTAL ESOPHAGUS) C Esophagus Biopsy (PROXIMAL ESOPHAGUS) D Colon Biopsy (CECAL POLYP) E Colon Biopsy (SIGMOID POLYP) F Colon Biopsy (RECTAL POLYPS X3) Procedures: , Gross/Micro L4/6 Patient: Nancy Joyce [id number] (Continued) Specimen: [id number] Received: 05/09/22-103 (Continued) Pathological Diagnosis (Continued) E. Colon, sigmoid, [...] labeled 1. (more content not included)... Normal [facility] XR MODIFIED BARIUM SWALLOWon 03-25-2022 [...] by: DENNY RINCON Date: 2022-03-25 13:53 Normal [facility] INSULINon 03-13-2022 Insulin 3.9 uIU/mL Normal 2.6-24.9 [facility] Comment on above: Performed By: #### O BSCRN #### [facility] [address] [place] [address] Dr. Ambrosio Ramirez XR CSPINE MIN 4 [...] DENNY RINCON Date: 2022-03-13 08:09 Normal [facility] CBC AUTO DIFFon 03-12-2022 BASO # 0.0 103/ul Normal 0.0-0.1 [facility] Comment on above: Performed By: #### C BC #### [facility] [address] [address] [address] Ambrosio Ramirez Basophils/100 WBC (Bld) 0.7 % Normal 0.2-2.0 [facility] Comment on above: Performed By: #### C BC #### [facility] [address] [address] [address] Ambrosio Ramirez EO # 0.1 103/ul Normal 0.0-0.7 [facility] Comment on above: Performed By: #### C BC #### [facility] [address] [place] [address] Dr. Ambrosio Ramirez Eosinophils/100 WBC (Bld) 0.9 % Normal 0.9-7.0 [facility] Comment on above: Performed By: #### C BC #### [facility] [address] [place] [address] Dr. Ambrosio Ramirez Erythrocyte distribution width (RBC) [Ratio] 12.3 % Normal 11.0-15.0 [facility] Comment on above: Performed By: #### C BC #### [facility] [address] [place] [address] Dr. Ambrosio Ramirez Hematocrit (Bld) [Volume fraction] 46.0 % Normal 36.0-48.0 [facility] Comment on above: Performed By: #### C BC #### [facility] [address] [place] [address] Dr. Ambrosio Ramirez Hemoglobin (Bld) [Mass/Vol] 15.2 g/dL Normal 12.0-16.0 [facility] Comment on above: Performed By: #### C BC #### [facility] [address] [place] [address] Dr. Ambrosio Ramirez IG # 0.03 10e3/ul Normal 0.00-0.03 [facility] Comment on above: Performed By: #### C BC #### [facility] [address] [place] [address] Dr. Ambrosio Ramirez IG % 0.5 % Normal 0.0-0.5 [facility] Comment on above: Performed By: #### C BC #### [facility] [address] [place] [address] Dr. Ambrosio Ramirez LYMPH # 2.0 103/ul Normal 1.2-3.8 [facility] Comment on above: Performed By: #### C BC #### [facility] [address] [place] [address] Dr. Ambrosio Ramirez Lymphocytes/100 WBC (Bld) 35.0 % Normal 20.5-60.0 [facility] Comment on above: Performed By: #### C BC #### [facility] [address] [place] [address] Dr. Ambrosio Ramirez MANUAL DIFF REQ NO Normal [facility] Comment on above: Performed By: #### C BC #### [facility] [address] [place] [address] Dr. Ambrosio Ramirez MCH (RBC) [Entitic mass] 33.8 pg Normal 26.7-34.0 [facility] Comment on above: Performed By: #### C BC #### [facility] [address] [place] [address] Dr. Ambrosio Ramirez MCHC (RBC) [Mass/Vol] 33.0 g/dL Normal 29.9-35.2 [facility] Comment on above: Performed By: #### C BC #### [facility] [address] [place] [address] Dr. Ambrosio Ramirez MCV (RBC) [Entitic vol] 102.2 fL Critically high 81.0-99.0 [facility] Comment on above: Performed By: #### C BC #### [facility] [address] [place] [address] Dr. Ambrosio Ramirez MONO # 0.4 103/ul Normal 0.3-0.8 [facility] Comment on above: Performed By: #### C BC #### [facility] [address] [place] [address] Dr. Ambrosio Ramirez Monocytes/100 WBC (Bld) 7.2 % Normal 1.7-12.0 [facility] Comment on above: Performed By: #### C BC #### [facility] [address] [address] [address] Ambrosio Ramirez NEUT # 3.2 103/ul Normal 1.4-6.5 [facility] Comment on above: Performed By: #### C BC #### [facility] [address] [place] [address] Dr. Ambrosio Ramirez Neutrophils/100 WBC (Bld) 55.7 % Normal 43.0-75.0 [facility] Comment on above: Performed By: #### C BC #### [facility] [address] [place] [address] Dr. Ambrosio Ramirez Platelet mean volume (Bld) [Entitic vol] 9.1 fL Critically low 9.5-13.5 [facility] Comment on above: Performed By: #### C BC #### [facility] [address] [place] [address] Dr. Ambrosio Ramirez PLT 234 103/ul Normal 150-450 [facility] Comment on above: Performed By: #### C BC #### [facility] [address] [place] [address] Dr. Ambrosio Ramirez RBC 4.50 106/ul Normal 4.20-5.40 [facility] Comment on above: Performed By: #### C BC #### [facility] [address] [place] [address] Dr. Ambrosio Ramirez WBC 5.7 103/ul Normal 4.0-11.0 [facility] Comment on above: Performed By: #### C BC #### [facility] [address] [place] [address] Dr. Ambrosio Ramirez FREE THYROXINE INDEX T7on FTI 2.41 Normal 1.30-4.50 [facility] Comment on above: Performed By: #### A 1C #### [facility] [address] [place] [address] Dr. Ambrosio Ramirez T3U 33.0 % Normal 30.0-39.0 [facility] Comment on above: Performed By: #### A 1C #### [facility] [address] [place] [address] Dr. Ambrosio Ramirez T4 [Mass/Vol] 7.30 ug/dL Normal 4.80-13.90 [facility] Comment on above: Performed By: #### A 1C #### [facility] [address] [address] [address] Ambrosio Ramirez GLYCOHEMOGLOBIN A1Con 2022 ADA RECOMMENDATION SEE BELOW Normal [facility] Comment on above: Result Comment: ADA RECOMMENDED LIMIT 4.0 - 6.0 ADA THERAPEUTIC TARGET < 7.0 ACTION SUGGESTED > 7.0 Performed By: #### A 1C #### [facility] [address] [address] [address] Ambrosio Ramirez Glucose [Mass/Vol] 100 mg/dL Normal [facility] Comment on above: Performed By: #### A 1C #### [facility] [address] [address] [address] Ambrosio Ramirez HbA1c (Bld) [Mass fraction] 5.1 % Normal 4.5-6.2 [facility] Comment on above: Performed By: #### A 1C #### [facility] [address] [address] [address] Ambrosio Ramirez IRONon 03-12-2022 Iron [Mass/Vol] 148.0 ug/dL Normal 50.0-170.0 [facility] Comment on above: Performed By: #### O BSCRN #### [facility] [address] [address] [address] Ambrosio Ramirez LIPID PROFILEon 03-12-2022 CHOL-HDL RATIO NORM SEE BELOW Normal [facility] Comment on above: Result Comment: 3.3 - 4.4 LOW RISK 4.4 - 7.1 AVERAGE RISK 7.1 - 11.0 MODERATE RISK >11.0 HIGH RISK Performed By: #### A 1C #### [facility] [address] [address] [address] Ambrosio Ramirez Cholesterol [Mass/Vol] 234 mg/dL Critically high <=200 [facility] Comment on above: Performed By: #### A 1C #### [facility] [address] [address] [address] Ambrosio Ramirez Cholesterol in HDL [Mass/Vol] 71 mg/dL Critically high 40-60 [facility] Comment on above: Performed By: #### A 1C #### [facility] [address] [address] [address] Ambrosio Ramirez Cholesterol in LDL [Mass/Vol] 132.4 mg/dL Normal [facility] Comment on above: Performed By: #### A 1C #### [facility] [address] [address] [address] Ambrosio Ramirez Cholesterol.total/Cho lesterol in HDL [Mass ratio] 3.3 {ratio} Normal [facility] Comment on above: Performed By: #### A 1C #### [facility] [address] [place] [address] Dr. Ambrosio Ramirez HDL NORMAL > or = 60 mg/dl - LOW CARDIOVASCULAR RISK <40 mg/dl - HIGH CARDIOVASCULAR RISK Normal [facility] Comment on above: Performed By: #### A 1C #### [facility] [address] [place] [address] Dr. Ambrosio Ramirez LDL CALC NORMAL SEE BELOW Normal [facility] Comment on above: Result Comment: <100 mg/dl OPTIMAL 100 - 129 mg/dl NEAR OR ABOVE OPTIMAL 130 - 159 mg/dl BORDERLINE HIGH 160 - 189 mg/dl HIGH >190 mg/dl VERY HIGH Performed By: #### A 1C #### [facility] [address] [place] [address] Dr. Ambrosio Ramirez Triglyceride [Mass/Vol] 153 mg/dL Critically high <=150 [facility] Comment on above: Performed By: #### A 1C #### [facility] [address] [place] [address] Dr. Ambrosio Ramirez VLDL CALC 30.6 mg/dL Normal [facility] Comment on above: Performed By: #### A 1C #### [facility] [address] [place] [address] Dr. Ambrosio Ramirez PROF 14(COMP METB)on 023 Albumin [Mass/Vol] 4.2 g/dL Normal 3.4-5.0 [facility] Comment on above: Performed By: #### A 1C #### [facility] [address] [address] [address] Ambrosio Ramirez Albumin/Globulin [Mass ratio] 1.3 {ratio} Normal [facility] Comment on above: Performed By: #### A 1C #### [facility] [address] [address] [address] Ambrosio Ramirez ALP [Catalytic activity/Vol] 62 U/L Normal 46-116 [facility] Comment on above: Performed By: #### A 1C #### [facility] [address] [place] [address] Dr. Ambrosio Ramirez ALT [Catalytic activity/Vol] 27 U/L Normal 14-59 [facility] Comment on above: Performed By: #### A 1C #### [facility] [address] [place] [address] Dr. Ambrosoi Ramirez Anion gap [Moles/Vol] 12.8 mmol/L Normal [facility] Comment on above: Performed By: #### A 1C #### [facility] [address] [place] [address] Dr. Ambrosio Ramirez AST [Catalytic activity/Vol] 39 U/L Critically high 15-37 [facility] Comment on above: Performed By: #### A 1C #### [facility] [address] [place] [address] Dr. Ambrosio Ramirez Bilirubin [Mass/Vol] 0.4 mg/dL Normal 0.2-1.0 [facility] Comment on above: Performed By: #### A 1C #### [facility] [address] [place] [address] Dr. Ambrosio Ramirez Calcium [Mass/Vol] 9.1 mg/dL Normal 8.5-10.1 [facility] Comment on above: Performed By: #### A 1C #### [facility] [address] [place] [address] Dr. Ambrosio Ramirez Chloride [Moles/Vol] 103 mmol/L Normal 98-107 [facility] Comment on above: Performed By: #### A 1C #### [facility] [address] [place] [address] Dr. Ambrosio Ramirez CO2 [Moles/Vol] 30.5 mmol/L Normal 21.0-32.0 [facility] Comment on above: Performed By: #### A 1C #### [facility] [address] [address] [address] Ambrosio Ramirez Creatinine [Mass/Vol] 0.54 mg/dL Critically low 0.55-1.02 [facility] Comment on above: Performed By: #### A 1C #### [facility] [address] [address] [address] Ambrosio Ramirez EGFR-AF TURKMEN >60 Normal >=60 [facility] Comment on above: Performed By: #### A 1C #### [facility] [address] [address] [address] Ambrosio Ramirez EGFR-NON AF TURKMEN >60 Normal >=60 [facility] Comment on above: Performed By: #### A 1C #### [facility] [address] [address] [address] Ambrosio Ramirez Globulin (S) [Mass/Vol] 3.3 g/dL Normal [facility] Comment on above: Performed By: #### A 1C #### [facility] [address] [address] [address] Ambrosio Ramirez Glucose [Mass/Vol] 88 mg/dL Normal 74-106 [facility] Comment on above: Performed By: #### A 1C #### [facility] [address] [address] [address] Ambrosio Ramirez Potassium [Moles/Vol] 4.3 mmol/L Normal 3.5-5.1 [facility] Comment on above: Performed By: #### A 1C #### [facility] [address] [address] [address] Ambrosio Ramirez Protein [Mass/Vol] 7.5 g/dL Normal 6.4-8.2 [facility] Comment on above: Performed By: #### A 1C #### [facility] [address] [address] [address] Ambrosio Ramirez Sodium [Moles/Vol] 142 mmol/L Normal 136-145 [facility] Comment on above: Performed By: #### A 1C #### [facility] [address] [address] [address] Ambrosio Ramirez Urea nitrogen [Mass/Vol] 9.0 mg/dL Normal 7.0-18.0 [facility] Comment on above: Performed By: #### A 1C #### [facility] [address] [place] [address] Dr. Ambrosio Ramirez Urea nitrogen/Creatinine [Mass ratio] 16.7 mg/mg Normal [facility] Comment on above: Performed By: #### A 1C #### [facility] [address] [place] [address] Dr. Ambrosio Ramirez TSHon 03-12-2022 TSH 1.934 uIU/mL Normal 0.358-3.740 [facility] Comment on above: Performed By: #### A 1C #### [facility] [address] [place] [address] Dr. Ambrosio Ramirez XR TSPINE 3 VIEWSon [...] GEORGE CATALAN Date: 2022-03-12 17:07 Normal [facility] Covid-19 PCR (CVDTB)on SARS-CoV-2 (COVID-19) RNA JAYY+probe Ql (Unsp spec) Not detected Normal NOT DETECTED [facility] Comment on above: Result Comment: When diagnostic [...] for this test is supported by the Sales Marketing Manager of Health and Human Service's declaration that [...] used). Performed By: #### C VDTB #### [facility] [address] [place] [address] Dr. Ambrosio Ramirez INFLUENZA A AND B AGon 01-27 INFLUENZA A AG Negative Normal NEGATIVE SEE COMMENT [facility] Comment on above: Performed By: #### I NFLUAB #### [facility] [address] [place] [address] Dr. Ambrosio Ramirez INFLUENZA B AG Negative Normal NEGATIVE SEE COMMENT [facility] Comment on above: Performed By: #### I NFLUAB #### [facility] [address] [place] [address] Dr. Ambrosio Ramirez INTERNAL CONTROLS Within Normal Limits Normal Wi thin Normal Limits [facility] Comment on above: Performed By: #### I NFLUAB #### [facility] [address] [place] [address] Dr. Ambrosio Ramirez XR CHEST 2 Von [...] GEORGE ROWE Date: 2022-01-27 14:42 Normal [facility] RPR QUANTon 08-26-2021 Rapid Plasma Reagin, Quant Non-Reactive Normal NonRea<1:1 [facility] Comment on above: Result Comment: Plea se Note: This test does not meet current guidelines for screening and diagnosis of syphilis. This test is intended for following treatment response in patients being treated for syphilis infection. To screen for syphilis infection, a reflex cascade that includes both RPR and a treponema-specific assay should be utilized, such as Treponema pallidum (Syphilis) Screening [place] (479274) or Rapid Plasma Reagin (RPR) Test With Reflex to Quantitative RPR and Confirmatory Treponema pallidum Antibodies (527166). Performed By: #### R PRQ #### [facility] [address] [place] [address] Dr. Ambrosio Ramirez HEP B SURFACE ANTIGEN SCREEN on 08-24-2021 HBsAg Screen Negative Normal Negative [facility] Comment on above: Performed By: #### H BSANS #### [facility] [address] [place] [address] Dr. Ambrosio Ramirez HEPATITIS C ANTIBODYon 08-24 Hep C Virus Ab <0.1 Normal 0.0-0.9 [facility] Comment on above: Result Comment: Nega tive: [...] Hepatitis C Virus (HCV) RNA, Diagnosis, JAYY (901347) and Hepatitis C Virus (HCV) Antibody with reflex to Quantitative Real-time PCR ([id number]). Performed By: #### H CV #### [facility] [address] [place] [address] Dr. Ambrosio Ramirez INSULINon 08-23-2021 Insulin 5.0 uIU/mL Normal 2.6-24.9 [facility] Comment on above: Performed By: #### A 1C #### [facility] [address] [place] [address] Dr. Ambrosio Ramirez OCC BLD IMMUNO SCREENon OCCULT BLOOD Negative Normal NEGATIVE [facility] Comment on above: Performed By: #### O BSCRN #### [facility] [address] [place] [address] Dr. Ambrosio Ramirez CBC AUTO DIFFon 08-22-2021 BASO # 0.1 103/ul Normal 0.0-0.1 [facility] Comment on above: Performed By: #### O BSCRN #### [facility] [address] [place] [address] Dr. Ambrosio Ramirez Basophils/100 WBC (Bld) 1.0 % Normal 0.2-2.0 [facility] Comment on above: Performed By: #### O BSCRN #### [facility] [address] [place] [address] Dr. Ambrosio Ramirez EO # 0.1 103/ul Normal 0.0-0.7 [facility] Comment on above: Performed By: #### O BSCRN #### [facility] [address] [place] [address] Dr. Ambrosio Ramirez Eosinophils/100 WBC (Bld) 1.8 % Normal 0.9-7.0 [facility] Comment on above: Performed By: #### O BSCRN #### [facility] [address] [place] [address] Dr. Ambrosio Ramirez Erythrocyte distribution width (RBC) [Ratio] 11.9 % Normal 11.0-15.0 [facility] Comment on above: Performed By: #### O BSCRN #### [facility] [address] [place] [address] Dr. Ambrosio Ramirez Hematocrit (Bld) [Volume fraction] 48.6 % Critically high 36.0-48.0 [facility] Comment on above: Performed By: #### O BSCRN #### [facility] [address] [place] [address] Dr. Ambrosio Ramirez Hemoglobin (Bld) [Mass/Vol] 16.3 g/dL Critically high 12.0-16.0 [facility] Comment on above: Performed By: #### O BSCRN #### [facility] [address] [place] [address] Dr. Ambrosio Ramirez IG # 0.03 10e3/ul Normal 0.00-0.03 [facility] Comment on above: Performed By: #### O BSCRN #### [facility] [address] [address] [address] Ambrosio Ramirez IG % 0.6 % Critically high 0.0-0.5 [facility] Comment on above: Performed By: #### O BSCRN #### [facility] [address] [address] [address] Ambrosio Ramirez LYMPH # 2.4 103/ul Normal 1.2-3.8 [facility] Comment on above: Performed By: #### O BSCRN #### [facility] [address] [address] [address] Ambrosio Ramirez Lymphocytes/100 WBC (Bld) 46.9 % Normal 20.5-60.0 [facility] Comment on above: Performed By: #### O BSCRN #### [facility] [address] [address] [address] Ambrosio Ramirez MANUAL DIFF REQ NO Normal [facility] Comment on above: Performed By: #### O BSCRN #### [facility] [address] [address] [address] Ambrosio Ramirez MCH (RBC) [Entitic mass] 34.9 pg Critically high 26.7-34.0 [facility] Comment on above: Performed By: #### O BSCRN #### [facility] [address] [address] [address] Ambrosio Ramirez MCHC (RBC) [Mass/Vol] 33.5 g/dL Normal 29.9-35.2 [facility] Comment on above: Performed By: #### O BSCRN #### [facility] [address] [address] [address] Ambrosio Ramirez MCV (RBC) [Entitic vol] 104.1 fL Critically high 81.0-99.0 [facility] Comment on above: Performed By: #### O BSCRN #### [facility] [address] [address] [address] Ambrosio Ramirez MONO # 0.4 103/ul Normal 0.3-0.8 [facility] Comment on above: Performed By: #### O BSCRN #### [facility] [address] [place] [address] Dr. Ambrosio Ramirez Monocytes/100 WBC (Bld) 8.2 % Normal 1.7-12.0 [facility] Comment on above: Performed By: #### O BSCRN #### [facility] [address] [place] [address] Dr. Ambrosio Ramirez NEUT # 2.1 103/ul Normal 1.4-6.5 [facility] Comment on above: Performed By: #### O BSCRN #### [facility] [address] [place] [address] Dr. Ambrosio Ramirez Neutrophils/100 WBC (Bld) 41.5 % Critically low 43.0-75.0 [facility] Comment on above: Performed By: #### O BSCRN #### [facility] [address] [place] [address] Dr. Ambrosio Ramirez Platelet mean volume (Bld) [Entitic vol] 9.3 fL Critically low 9.5-13.5 [facility] Comment on above: Performed By: #### O BSCRN #### [facility] [address] [place] [address] Dr. Ambrosio Ramirez PLT 210 103/ul Normal 150-450 [facility] Comment on above: Performed By: #### O BSCRN #### [facility] [address] [place] [address] Dr. Ambrosio Ramirze RBC 4.67 106/ul Normal 4.20-5.40 [facility] Comment on above: Performed By: #### O BSCRN #### [facility] [address] [place] [address] Dr. Ambrosio Ramirez WBC 5.0 103/ul Normal 4.0-11.0 [facility] Comment on above: Performed By: #### O BSCRN #### [facility] [address] [place] [address] Dr. Ambrosio Ramirez FREE THYROXINE INDEX T7on FTI 2.72 Normal 1.30-4.50 [facility] Comment on above: Performed By: #### O BSCRN #### [facility] [address] [address] [address] Ambrosio Ramirez T3U 32.0 % Normal 30.0-39.0 [facility] Comment on above: Performed By: #### O BSCRN #### [facility] [address] [address] [address] Ambrosio Ramirez T4 [Mass/Vol] 8.50 ug/dL Normal 4.80-13.90 [facility] Comment on above: Performed By: #### O BSCRN #### [facility] [address] [place] [address] Dr. Ambrosio Ramirez GLYCOHEMOGLOBIN A1Con 2021 ADA RECOMMENDATION SEE BELOW Normal [facility] Comment on above: Result Comment: ADA RECOMMENDED LIMIT 4.0 - 6.0 ADA THERAPEUTIC TARGET < 7.0 ACTION SUGGESTED > 7.0 Performed By: #### A 1C #### [facility] [address] [place] [address] Dr. Ambrosio Ramirez Glucose [Mass/Vol] 108 mg/dL Normal [facility] Comment on above: Performed By: #### A 1C #### [facility] [address] [place] [address] Dr. Ambrosio Ramirez HbA1c (Bld) [Mass fraction] 5.4 % Normal 4.5-6.2 [facility] Comment on above: Performed By: #### A 1C #### [facility] [address] [place] [address] Dr. Ambrosio Ramirez HIV 1/2 RAPID (EXPOSURE ONLY )on 08-22-2021 HIV AB Negative Normal [facility] Comment on above: Performed By: #### A 1C #### [facility] [address] [place] [address] Dr. Ambrosio Ramirez HIV AG Negative Normal [facility] Comment on above: Performed By: #### A 1C #### [facility] [address] [place] [address] Dr. Ambrosio Ramirez INTERNAL CONTROLS Within Normal Limits Normal Wi thin Normal Limits [facility] Comment on above: Performed By: #### A 1C #### [facility] [address] [place] [address] Dr. Ambrosio Ramirez RAPID HIV INFO SEE BELOW Normal [facility] Comment on above: Result Comment: This test is used for the initial screening of the exposure source. Confirmation of all results will be obtained through reference lab testing. Performed By: #### A 1C #### [facility] [address] [place] [address] Dr. Ambrosio Ramirez IRONon 08-22-2021 Iron [Mass/Vol] 137.0 ug/dL Normal 50.0-170.0 [facility] Comment on above: Performed By: #### I HAMLET #### [facility] [address] [place] [address] Dr. Ambrosio Ramirez LIPID PROFILEon 08-22-2021 CHOL-HDL RATIO NORM SEE BELOW Normal [facility] Comment on above: Result Comment: 3.3 - 4.4 LOW RISK 4.4 - 7.1 AVERAGE RISK 7.1 - 11.0 MODERATE RISK >11.0 HIGH RISK Performed By: #### O BSCRN #### [facility] [address] [place] [address] Dr. Ambrosio Ramirez Cholesterol [Mass/Vol] 251 mg/dL Critically high <=200 [facility] Comment on above: Performed By: #### O BSCRN #### [facility] [address] [place] [address] Dr. Ambrosio Ramirez Cholesterol in HDL [Mass/Vol] 67 mg/dL Critically high 40-60 [facility] Comment on above: Performed By: #### O BSCRN #### [facility] [address] [address] [address] Ambrosio Ramirez Cholesterol in LDL [Mass/Vol] 154.8 mg/dL Normal [facility] Comment on above: Performed By: #### O BSCRN #### [facility] [address] [place] [address] Dr. Ambrosio Ramirez Cholesterol.total/Cho lesterol in HDL [Mass ratio] 3.7 {ratio} Normal [facility] Comment on above: Performed By: #### O BSCRN #### [facility] [address] [address] [address] Ambrosio Ramirez HDL NORMAL > or = 60 mg/dl - LOW CARDIOVASCULAR RISK <40 mg/dl - HIGH CARDIOVASCULAR RISK Normal [facility] Comment on above: Performed By: #### O BSCRN #### [facility] [address] [address] [address] Ambrosio Ramirez LDL CALC NORMAL SEE BELOW Normal [facility] Comment on above: Result Comment: <100 mg/dl OPTIMAL 100 - 129 mg/dl NEAR OR ABOVE OPTIMAL 130 - 159 mg/dl BORDERLINE HIGH 160 - 189 mg/dl HIGH >190 mg/dl VERY HIGH Performed By: #### O BSCRN #### [facility] [address] [place] [address] Dr. Ambrosio Ramirez Triglyceride [Mass/Vol] 146 mg/dL Normal <=150 [facility] Comment on above: Performed By: #### O BSCRN #### [facility] [address] [address] [address] Ambrosio Ramirez VLDL CALC 29.2 mg/dL Normal [facility] Comment on above: Performed By: #### O BSCRN #### [facility] [address] [address] [address] Ambrosio Ramirez PROF 14(COMP METB)on 022 Albumin [Mass/Vol] 4.3 g/dL Normal 3.4-5.0 [facility] Comment on above: Performed By: #### O BSCRN #### [facility] [address] [place] [address] Dr. Ambrosio Ramirez Albumin/Globulin [Mass ratio] 1.2 {ratio} Normal [facility] Comment on above: Performed By: #### O BSCRN #### [facility] [address] [place] [address] Dr. Ambrosio Ramirez ALP [Catalytic activity/Vol] 57 U/L Normal 46-116 [facility] Comment on above: Performed By: #### O BSCRN #### [facility] [address] [address] [address] Ambrosio Ramirez ALT [Catalytic activity/Vol] 56 U/L Normal 14-59 [facility] Comment on above: Performed By: #### O BSCRN #### [facility] [address] [address] [address] Ambrosio Ramirez Anion gap [Moles/Vol] 11.5 mmol/L Normal Th [facility] Comment on above: Performed By: #### O BSCRN #### [facility] [address] [address] [address] Ambrosio Ramirez AST [Catalytic activity/Vol] 75 U/L Critically high 15-37 [facility] Comment on above: Performed By: #### O BSCRN #### [facility] [address] [place] [address] Dr. Ambrosio Ramirez Bilirubin [Mass/Vol] 0.4 mg/dL Normal 0.2-1.0 [facility] Comment on above: Performed By: #### O BSCRN #### [facility] [address] [place] [address] Dr. Ambrosio Ramirez Calcium [Mass/Vol] 8.7 mg/dL Normal 8.5-10.1 [facility] Comment on above: Performed By: #### O BSCRN #### [facility] [address] [place] [address] Dr. Ambrosio Ramirez Chloride [Moles/Vol] 105 mmol/L Normal 98-107 [facility] Comment on above: Performed By: #### O BSCRN #### [facility] [address] [place] [address] Dr. Ambrosio Ramirez CO2 [Moles/Vol] 30.3 mmol/L Normal 21.0-32.0 [facility] Comment on above: Performed By: #### O BSCRN #### [facility] [address] [address] [address] Ambrosio Ramirez Creatinine [Mass/Vol] 0.67 mg/dL Normal 0.55-1.02 [facility] Comment on above: Performed By: #### O BSCRN #### [facility] [address] [address] [address] Ambrosio Ramirez EGFR-AF TURKMEN >60 Normal >=60 [facility] Comment on above: Performed By: #### O BSCRN #### [facility] [address] [address] [address] Ambrosio Ramirez EGFR-NON AF TURKMEN >60 Normal >=60 [facility] Comment on above: Performed By: #### O BSCRN #### [facility] [address] [address] [address] Ambrosio Ramirez Globulin (S) [Mass/Vol] 3.7 g/dL Normal [facility] Comment on above: Performed By: #### O BSCRN #### [facility] [address] [address] [address] Ambrosio Ramirez Glucose [Mass/Vol] 93 mg/dL Normal 74-106 [facility] Comment on above: Performed By: #### O BSCRN #### [facility] [address] [address] [address] Ambrosio Ramirez Potassium [Moles/Vol] 4.8 mmol/L Normal 3.5-5.1 [facility] Comment on above: Performed By: #### O BSCRN #### [facility] [address] [place] [address] Dr. Ambrosio Ramirez Protein [Mass/Vol] 8.0 g/dL Normal 6.4-8.2 [facility] Comment on above: Performed By: #### O BSCRN #### [facility] [address] [place] [address] Dr. Ambrosio Ramirez Sodium [Moles/Vol] 142 mmol/L Normal 136-145 [facility] Comment on above: Performed By: #### O BSCRN #### [facility] [address] [address] [address] Ambrosio Ramirez Urea nitrogen [Mass/Vol] 8.0 mg/dL Normal 7.0-18.0 [facility] Comment on above: Performed By: #### O BSCRN #### [facility] [address] [place] [address] Dr. Ambrosio Ramirez Urea nitrogen/Creatinine [Mass ratio] 11.9 mg/mg Normal [facility] Comment on above: Performed By: #### O BSCRN #### [facility] [address] [address] [address] Ambrosio Ramirez TSHon 08-22-2021 TSH 2.117 uIU/mL Normal 0.358-3.740 [facility] Comment on above: Performed By: #### O BSCRN #### [facility] [address] [address] [address] 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 Electronically authenticated by: GEORGE ROWE Date: 2021-08-22 21:07 Normal [facility] Vital Signs Date Time Vital Sign Value Performing Clinician Facility 05-09-2022 10:14-0400 Diastolic blood pressure 85 mm[Hg] [facility] RN-C Ama Edwards Work Phone: [facility] 05-09-2022 10:14-0400 Heart rate 99 /min [facility] RN-C Ama Edwards Work Phone: [facility] 05-09-2022 10:14-0400 Respiratory rate 18 /min [facility] RN-Fabricio Edwards Work Phone: [facility] 05-09-2022 10:14-0400 SaO2% (BldA) [Mass fraction] 99 % [facility] RN-Fabricio Edwards Work Phone: [facility] 05-09-2022 10:14-0400 Systolic blood pressure 124 mm[Hg] [facility] RN-C Ama Edwards Work Phone: [facility] 05-09-2022 08:04-0400 Body height 180.34 cm [facility] RN-C Ama Edwards Work Phone: [facility] 05-09-2022 08:04-0400 Body weight 58.96 kg [facility] RN-C Ama Edwards Work Phone: [facility] 05-01-2022 11:15-0500 Body height Imad Asaad Other [facility] Other 05-01-2022 11:15-0500 Body mass index (BMI) [Ratio] 18.13 kg/m2 Imad Asaad [facility] Other 05-01-2022 11:15-0500 Body weight 58.97 kg Imad Asaad Other [facility] Other 05-01-2022 11:15-0500 Diastolic blood pressure 102 mm[Hg] Imad Asaad Other [facility] Other 05-01-2022 11:15-0500 Respiratory rate 16 /min Imad Asaad Other [facility] Other 05-01-2022 11:15-0500 Systolic blood pressure 158 mm[Hg] Imad Asaad Other [facility] Other Encounters Encounter Date Encounter Type Care Provider Facility Start: 12-22-2023 End: 12-22-2023 ambulatory LEIGH CLARK Facility:[facility] Start: 12-22-2023 End: 12-22-2023 Patient encounter procedure LEIGH CLARK [facility] Start: 12-14-2023 End: 12-14-2023 ambulatory Manuel Lugoitis Facility:[facility] Start: 11-23-2023 ambulatory LEIGH CLARK Facility :[facility] Start: 09-21-2023 End: 09-21-2023 ambulatory Manuel Lugoitis Facility:[facility] Start: 08-31-2023 End: 08-31-2023 ambulatory Andrius Naila Lugoitis Facility:[facility] Start: 08-17-2023 End: 08-17-2023 ambulatory Manuel Lugoitis Facility:[facility] Start: 07-06-2023 End: 07-06-2023 ambulatory Andkrishna Lugoitis Facility:[facility] Start: 05-09-2022 End: 05-09-2022 ambulatory Ama Edwards Facility:[facility] Start: 05-09-2022 End: 05-09-2022 Admission to same day surgery center [facility] RN-C Ama Edwards Work Phone: [facility] Work Phone: Start: 05-09-2022 End: 05-09-2022 ambulatory [facility] RN-C Ama Edwards Work Phone: [facility] Work Phone: Start: 05-02-2022 End: 05-02-2022 ambulatory Imad Asaad Other [facility] Other Start: 05-02-2022 Telephone encounter Imad Asaad [facility] Start: 05-01-2022 End: 05-01-2022 ambulatory Imad Asaad Other [facility] Other Start: 05-01-2022 Office consultation new/estab patient [...] Procedure Detail Performing Clinician Start: 05-09-2022 Esophagogastroduodenoscopy [facility] RN-Fabricio patel Work Phone: Screening for malign ant neoplasm of colon Imad Asaad Other Plan of Treatment Date Care Activity Detail Author Start: 05-09-2022 [facility] Patient Education Colon Polyps H emorrhoids (DC) Diverticulosis (DC) Gastritis (DC) [facility] Work Phone: Payers Date Payer Category Payer Self-pay 2022 Unknown 1960 Unknown [id number] 2.16.84 [id number] 1960 Unknown [id number] 2.16.84 [id number] 1960 Unknown [id number] 2.16.84 [id number] 1962 Unknown [id number] 2.16.84 [id number] 1962 Unknown [id number] 2.16.84 [id number] 1962 Unknown [id number] 2.16.84 [id number] 1962 Unknown [id number] 2.16.84 [id number] 1962 Unknown [id number] 2.16. [id number] 1962 Unknown [id number] 2.16. [id number] 1962 Unknown [id number] 2.16. [id number] 1962 Unknown [id number] 2.16. [id number] 1962 Unknown [id number] 2.16. [id number] 1957 Medicare [id number] 21 [id number] 1959 Unknown [id number] 1957 Unknown [id number] 1957 Unknown [id number] Unknown [id number] 2.16.8 [id number] Social History Date Type Detail Facility Start: [facility]-09[facility]2022 [facility] Start: 1960 Sex Assigned At Female F [facility]igned At [facility] Tobacco smoking status No Smokin g Status Entered [facility] Goals Date Patient Goal Desired Activity /State Procedure note 05-09-2022 Note Date & Type Note Facility 05-09-2022 Procedure note [facility] Evaluation note 05-01-2022 Note Date & Type Note Facility 05-01-2022 Evaluation note Encounter Date Diagnosis Assessment Notes Apr, Dysphagia (ICD-10 - R13.10) Apr, Weight loss (ICD-10 - R63.4) Apr, Colon cancer screening (ICD-10 - Z12.11) [facility] Other Evaluation + Plan note Note Date & Type Note Facility Evaluation + Plan note No data available for this section [facility] [place] Evaluation note Note Date & Type Note Facility Evaluation note No assessment information jesse navas [facility] Work Phone: Evaluation note Note Date & Type Note Facility Evaluation note No Information [facility] [employer] Other History general Narrative - Reported Note Date & Type Note Facility History general Narrative - Reported Type Medical History Anxiety/Depression Surgical History Neck surgery Surgical History Tonsillectomy Hospitalization History See above [facility] Other Hospital Discharge instructions Note Date & [...] -Follow up with PCP. - Office number [phone]. [facility] Work Phone: Hospital Discharge instructions Note Date & Type Note Facility Hospital Discharge instructions No data available for this section [facility] Progress note Note Date & Type Note Facility Progress note No data available for this section [facility] Chief Complaint and Reason for Visit Chief [...] Status: Inactive Member Role Status Dates Nesha Bryatn MD Attending Provider Active JIE Watts Primary Care Provider Active REASON FOR VISIT (unrecogniz ed section and content) [facility] DIARRHEA, WEIGHT LOSS AND DYSPHAGIAClinical INFORMATION SOURCE (unrecogn ized section and content) DATE CREATED AUTHOR 05/20/2022 [facility] DATE CREATED AUTHOR AUTHOR'S ORGANIZ ATION 07/02/2022 [facility] DATE CREATED AUTHOR AUTHOR'S ORGANIZ ATION 12/20/2023 [facility] DATE CREATED AUTHOR AUTHOR'S ORGANIZ ATION 12/24/2023 [facility] FOR RECORDS PERTAINING TO PATIENTS WHO [...] BE BASED ON THE PRIMARY CLINICAL RECORDS. [employer] provides no warranty or guarantee of the accuracy or completeness of information in this document.
== END 2023-12-25 11:07 | disposition home or self-care (01) ==
LOC: EC 11:06
PROVIDERS: PCP Nurse Practitioner Family; Visit Provider Orthopaedic Surgery Orthopaedic Surgery of the Spine
DX: M54.50 Low back pain, unspecified (principal)
CPT/HCPCS: 72100

== ENCOUNTER 2023-12-28 08:05 | Day surgery (SDC) | payer MEDICARE, OTHER, MEDICAID, SELFPAY ==
--- OUTSIDE RECORDS SUMMARY | 2023-12-28 08:09 | XMS_ITS | CCD ---
Author Organization [facility] Care Team Providers Care Secretary Bookkeeper Name Role Phone MD Nesha Bryant Attending Provider [phone] JIE Edwards Primary Care Provider Asadelfino, Imad Unavailable Ama Edwards Primary Care [...] 30 days Apr, Active polyethylene glycol 3350 [id number] mg / potassium chloride 2970 mg / sodium bicarbonate 6740 mg / sodium chloride 5860 mg / sodium sulfate 79445 mg powder for oral solution (2 sources) [...] Reference Range Facility Ernie 05-09-2022 L Specimen: [id number] Received: 05/09/22 Status: EDUARD Zaragoza Num: [id number] Spec Type: Surgical Subm Dr: Nesha Bryant MD Tissues: A Gastric Biopsy (GASTRIC) B Esophagus Biopsy (DISTAL ESOPHAGUS) C Esophagus Biopsy (PROXIMAL ESOPHAGUS) D Colon Biopsy (CECAL POLYP) E Colon Biopsy (SIGMOID POLYP) F Colon Biopsy (RECTAL POLYPS X3) Procedures: ROSI/Barbara, Gross/Micro L4/6 Age/ Patient Sex Location Account Attending Physician Nancy Joyce 61/F [id number] Nesha Bryant MD SPEC NUM: [id number] RECD: 05/09/22 STATUS: EDUARD NIK NUM: [id number] KATY: 05/09/22- SUBM DR: Nesha Bryant MD ENTERED: 05/09/[address] [facility] DR: SPEC TYPE: Surgical DEPT: S ORDERED: [...] mucosal fold. - Negative for adenoma/dysplasia. Specimen: [id number] Received: 05/09/22 Status: EDUARD Nik Num: [id number] Spec Type: Surgical Subm Dr: Nesha Bryant MD Tissues: A Gastric Biopsy (GASTRIC) B Esophagus Biopsy (DISTAL ESOPHAGUS) C Esophagus Biopsy (PROXIMAL ESOPHAGUS) D Colon Biopsy (CECAL POLYP) E Colon Biopsy (SIGMOID POLYP) F Colon Biopsy (RECTAL POLYPS X3) Procedures: , Gross/Micro L4/6 Patient: Nancy Joyce [id number] (Continued) Specimen: [id number] Received: 05/09/22 (Continued) Pathological Diagnosis (Continued) Signed (signature on file) Carin Oliveros MD 05/12/22 1130 Specimen: [id number] Received: 05/09/22 Status: EDUARD Zaragoza Num: [id number] Spec Type: Surgical Subm Dr: Nesha Bryant MD Tissues: A Gastric Biopsy (GASTRIC) B Esophagus Biopsy (DISTAL ESOPHAGUS) C Esophagus Biopsy (PROXIMAL ESOPHAGUS) D Colon Biopsy (CECAL POLYP) E Colon Biopsy (SIGMOID POLYP) F Colon Biopsy (RECTAL POLYPS X3) Procedures: , Gross/Micro L4/6 Patient: Nancy Joyce [id number] (Continued) Specimen: [id number] Received: 05/09/22-103 (Continued) Pathological Diagnosis (Continued) E. [...] labeled 1. (more content not included)... Normal [facility] XR MODIFIED BARIUM SWALLOWon 03-25-2022 XR MODIFIED [...] by: DENNY RINCON Date: 2022-03-25 13:53 Normal [facility] INSULINon 03-13-2022 Insulin 3.9 uIU/mL Normal 2.6-24.9 [facility] Comment on above: Performed By: #### O BSCRN #### [facility] [address] [place] [address] Dr. Ambrosio Ramirez XR CSPINE MIN 4 [...] Date: 2022-03-13 08:09 Normal [facility] CBC AUTO DIFFon 03-12-2022 BASO # 0.0 103/ul Normal 0.0-0.1 [facility] Comment on above: Performed By: #### C BC #### [facility] [address] [address] [address] Ambrosio Ramirez Basophils/100 WBC (Bld) 0.7 % Normal 0.2-2.0 [facility] Comment on above: Performed By: #### C BC #### [facility] [address] [address] [address] Ambrosio Ramirez EO # 0.1 103/ul Normal 0.0-0.7 [facility] Comment on above: Performed By: #### C BC #### [facility] [address] [place] [address] Dr. Ambrosio Ramirez Eosinophils/100 WBC (Bld) 0.9 % Normal 0.9-7.0 [facility] Comment on above: Performed By: #### C BC #### [facility] [address] [place] [address] Dr. Ambrosio Ramirez Erythrocyte distribution width (RBC) [Ratio] 12.3 % Normal 11.0-15.0 [facility] Comment on above: Performed By: #### C BC #### [facility] [address] [place] [address] Dr. Ambrosio Ramirez Hematocrit (Bld) [Volume fraction] 46.0 % Normal 36.0-48.0 [facility] Comment on above: Performed By: #### C BC #### [facility] [address] [place] [address] Dr. Ambrosio Ramirez Hemoglobin (Bld) [Mass/Vol] 15.2 g/dL Normal 12.0-16.0 [facility] Comment on above: Performed By: #### C BC #### [facility] [address] [place] [address] Dr. Ambrosio Ramirez IG # 0.03 10e3/ul Normal 0.00-0.03 [facility] Comment on above: Performed By: #### C BC #### [facility] [address] [place] [address] Dr. Ambrosio Ramirez IG % 0.5 % Normal 0.0-0.5 [facility] Comment on above: Performed By: #### C BC #### [facility] [address] [place] [address] Dr. Ambrosio Ramirez LYMPH # 2.0 103/ul Normal 1.2-3.8 [facility] Comment on above: Performed By: #### C BC #### [facility] [address] [place] [address] Dr. Ambrosio Ramirez Lymphocytes/100 WBC (Bld) 35.0 % Normal 20.5-60.0 [facility] Comment on above: Performed By: #### C BC #### [facility] [address] [place] [address] Dr. Ambrosio Ramirez MANUAL DIFF REQ NO Normal [facility] Comment on above: Performed By: #### C BC #### [facility] [address] [place] [address] Dr. Ambrosio Ramirez MCH (RBC) [Entitic mass] 33.8 pg Normal 26.7-34.0 [facility] Comment on above: Performed By: #### C BC #### [facility] [address] [place] [address] Dr. Ambrosio Ramirez MCHC (RBC) [Mass/Vol] 33.0 g/dL Normal 29.9-35.2 [facility] Comment on above: Performed By: #### C BC #### [facility] [address] [place] [address] Dr. Ambrosio Ramirez MCV (RBC) [Entitic vol] 102.2 fL Critically high 81.0-99.0 [facility] Comment on above: Performed By: #### C BC #### [facility] [address] [place] [address] Dr. Ambrosio Ramirez MONO # 0.4 103/ul Normal 0.3-0.8 [facility] Comment on above: Performed By: #### C BC #### [facility] [address] [place] [address] Dr. Ambrosio Ramirez Monocytes/100 WBC (Bld) 7.2 % Normal 1.7-12.0 [facility] Comment on above: Performed By: #### C BC #### [facility] [address] [address] [address] Ambrosio Ramirez NEUT # 3.2 103/ul Normal 1.4-6.5 [facility] Comment on above: Performed By: #### C BC #### [facility] [address] [place] [address] Dr. Ambrosio Ramirez Neutrophils/100 WBC (Bld) 55.7 % Normal 43.0-75.0 [facility] Comment on above: Performed By: #### C BC #### [facility] [address] [place] [address] Dr. Ambrosio Ramirez Platelet mean volume (Bld) [Entitic vol] 9.1 fL Critically low 9.5-13.5 [facility] Comment on above: Performed By: #### C BC #### [facility] [address] [place] [address] Dr. Ambrosio Ramirez PLT 234 103/ul Normal 150-450 [facility] Comment on above: Performed By: #### C BC #### [facility] [address] [place] [address] Dr. Ambrosio Ramirez RBC 4.50 106/ul Normal 4.20-5.40 [facility] Comment on above: Performed By: #### C BC #### [facility] [address] [place] [address] Dr. Ambrosio Ramirez WBC 5.7 103/ul Normal 4.0-11.0 [facility] Comment on above: Performed By: #### C BC #### [facility] [address] [place] [address] Dr. Ambrosio Ramirez FREE THYROXINE INDEX T7on FTI 2.41 Normal 1.30-4.50 [facility] Comment on above: Performed By: #### A 1C #### [facility] [address] [place] [address] Dr. Ambrosio Ramirez T3U 33.0 % Normal 30.0-39.0 [facility] Comment on above: Performed By: #### A 1C #### [facility] [address] [place] [address] Dr. Ambrosio Ramirez T4 [Mass/Vol] 7.30 ug/dL Normal 4.80-13.90 [facility] Comment on above: Performed By: #### A 1C #### [facility] [address] [address] [address] Ambrosio Ramirez GLYCOHEMOGLOBIN A1Con 2022 ADA RECOMMENDATION SEE BELOW Normal [facility] Comment on above: Result Comment: ADA RECOMMENDED LIMIT 4.0 - 6.0 ADA THERAPEUTIC TARGET < 7.0 ACTION SUGGESTED > 7.0 Performed By: #### A 1C #### [facility] [address] [address] [address] Ambrosio Ramirez Glucose [Mass/Vol] 100 mg/dL Normal [facility] Comment on above: Performed By: #### A 1C #### [facility] [address] [address] [address] Ambrosio Ramirez HbA1c (Bld) [Mass fraction] 5.1 % Normal 4.5-6.2 [facility] Comment on above: Performed By: #### A 1C #### [facility] [address] [address] [address] Ambrosio Ramirez IRONon 03-12-2022 Iron [Mass/Vol] 148.0 ug/dL Normal 50.0-170.0 [facility] Comment on above: Performed By: #### O BSCRN #### [facility] [address] [address] [address] Ambrosio Ramirez LIPID PROFILEon 03-12-2022 CHOL-HDL RATIO NORM SEE BELOW Normal [facility] Comment on above: Result Comment: 3.3 - 4.4 LOW RISK 4.4 - 7.1 AVERAGE RISK 7.1 - 11.0 MODERATE RISK >11.0 HIGH RISK Performed By: #### A 1C #### [facility] [address] [address] [address] Ambrosio Ramirez Cholesterol [Mass/Vol] 234 mg/dL Critically high <=200 [facility] Comment on above: Performed By: #### A 1C #### [facility] [address] [address] [address] Ambrosio Ramirez Cholesterol in HDL [Mass/Vol] 71 mg/dL Critically high 40-60 [facility] Comment on above: Performed By: #### A 1C #### [facility] [address] [address] [address] Ambrosio Ramirez Cholesterol in LDL [Mass/Vol] 132.4 mg/dL Normal [facility] Comment on above: Performed By: #### A 1C #### [facility] [address] [address] [address] Ambrosio Ramirez Cholesterol.total/Cho lesterol in HDL [Mass ratio] 3.3 {ratio} Normal [facility] Comment on above: Performed By: #### A 1C #### [facility] [address] [place] [address] Dr. Ambrosio Ramirez HDL NORMAL > or = 60 mg/dl - LOW CARDIOVASCULAR RISK <40 mg/dl - HIGH CARDIOVASCULAR RISK Normal [facility] Comment on above: Performed By: #### A 1C #### [facility] [address] [place] [address] Dr. Ambrosio Ramirez LDL CALC NORMAL SEE BELOW Normal [facility] Comment on above: Result Comment: <100 mg/dl OPTIMAL 100 - 129 mg/dl NEAR OR ABOVE OPTIMAL 130 - 159 mg/dl BORDERLINE HIGH 160 - 189 mg/dl HIGH >190 mg/dl VERY HIGH Performed By: #### A 1C #### [facility] [address] [place] [address] Dr. Ambrosio Ramirez Triglyceride [Mass/Vol] 153 mg/dL Critically high <=150 [facility] Comment on above: Performed By: #### A 1C #### [facility] [address] [place] [address] Dr. Ambrosio Ramirez VLDL CALC 30.6 mg/dL Normal [facility] Comment on above: Performed By: #### A 1C #### [facility] [address] [place] [address] Dr. Ambrosio Ramirez PROF 14(COMP METB)on 023 Albumin [Mass/Vol] 4.2 g/dL Normal 3.4-5.0 [facility] Comment on above: Performed By: #### A 1C #### [facility] [address] [address] [address] Ambrosio Ramirez Albumin/Globulin [Mass ratio] 1.3 {ratio} Normal [facility] Comment on above: Performed By: #### A 1C #### [facility] [address] [address] [address] Ambrosio Ramirez ALP [Catalytic activity/Vol] 62 U/L Normal 46-116 [facility] Comment on above: Performed By: #### A 1C #### [facility] [address] [place] [address] Dr. Ambrosio Ramirez ALT [Catalytic activity/Vol] 27 U/L Normal 14-59 [facility] Comment on above: Performed By: #### A 1C #### [facility] [address] [place] [address] Dr. Ambrosio Ramirez Anion gap [Moles/Vol] 12.8 mmol/L Normal [facility] Comment on above: Performed By: #### A 1C #### [facility] [address] [place] [address] Dr. Ambrosio Ramirez AST [Catalytic activity/Vol] 39 U/L Critically high 15-37 [facility] Comment on above: Performed By: #### A 1C #### [facility] [address] [place] [address] Dr. Ambrosio Ramirez Bilirubin [Mass/Vol] 0.4 mg/dL Normal 0.2-1.0 [facility] Comment on above: Performed By: #### A 1C #### [facility] [address] [place] [address] Dr. Ambrosio Ramirez Calcium [Mass/Vol] 9.1 mg/dL Normal 8.5-10.1 [facility] Comment on above: Performed By: #### A 1C #### [facility] [address] [place] [address] Dr. Ambrosio Ramirez Chloride [Moles/Vol] 103 mmol/L Normal 98-107 [facility] Comment on above: Performed By: #### A 1C #### [facility] [address] [place] [address] Dr. Ambrosio Ramirez CO2 [Moles/Vol] 30.5 mmol/L Normal 21.0-32.[address] [facility] Comment on above: Performed By: #### A 1C #### [facility] [address] [address] [address] Ambrosio Ramirez Creatinine [Mass/Vol] 0.54 mg/dL Critically low 0.55-1.02 [facility] Comment on above: Performed By: #### A 1C #### [facility] [address] [address] [address] Ambrosio Ramirez EGFR-AF GABONESE >60 Normal >=[address] [facility] Comment on above: Performed By: #### A 1C #### [facility] [address] [address] [address] Ambrosio Ramirez EGFR-NON AF GABONESE >60 Normal >=60 [facility] Comment on above: Performed By: #### A 1C #### [facility] [address] [address] [address] Ambrosio Ramirez Globulin (S) [Mass/Vol] 3.3 g/dL Normal [facility] Comment on above: Performed By: #### A 1C #### [facility] [address] [address] [address] Ambrosio Ramirez Glucose [Mass/Vol] 88 mg/dL Normal 74-106 [facility] Comment on above: Performed By: #### A 1C #### [facility] [address] [address] [address] Ambrosio Ramirez Potassium [Moles/Vol] 4.3 mmol/L Normal 3.5-5.1 [facility] Comment on above: Performed By: #### A 1C #### [facility] [address] [address] [address] Ambrosio Ramirez Protein [Mass/Vol] 7.5 g/dL Normal 6.4-8.2 [facility] Comment on above: Performed By: #### A 1C #### [facility] [address] [address] [address] Ambrosio Ramirez Sodium [Moles/Vol] 142 mmol/L Normal 136-145 [facility] Comment on above: Performed By: #### A 1C #### [facility] [address] [address] [address] Ambrosio Ramirez Urea nitrogen [Mass/Vol] 9.0 mg/dL Normal 7.0-18.0 [facility] Comment on above: Performed By: #### A 1C #### [facility] [address] [place] [address] Dr. Ambrosio Ramirez Urea nitrogen/Creatinine [Mass ratio] 16.7 mg/mg Normal [facility] Comment on above: Performed By: #### A 1C #### [facility] [address] [place] [address] Dr. Ambrosio Ramirez TSHon 03-12-2022 TSH 1.934 uIU/mL Normal 0.358-3.740 [facility] Comment on above: Performed By: #### A 1C #### [facility] [address] [place] [address] Dr. Ambrosio Ramirez XR TSPINE 3 VIEWSon [...] Date: 2022-03-12 17:07 Normal [facility] Covid-19 PCR (CVDTB)on SARS-CoV-2 (COVID-19) RNA JAYY+probe Ql (Unsp spec) Not detected Normal NOT DETECTED [facility] Comment on above: Result Comment: When [...] for this test is supported by the [employer]cal Services Manager of Health and Human Service's declaration [...] used). Performed By: #### C VDTB #### [facility] [address] [place] [address] Dr. Ambrosio Ramirez INFLUENZA A AND B AGon 01-27 INFLUENZA A AG Negative Normal NEGATIVE SEE COMMENT [facility] Comment on above: Performed By: #### I NFLUAB #### [facility] [address] [place] [address] Dr. Ambrosio Ramirez INFLUENZA B AG Negative Normal NEGATIVE SEE COMMENT [facility] Comment on above: Performed By: #### I NFLUAB #### [facility] [address] [place] [address] Dr. Ambrosio Ramirez INTERNAL CONTROLS Within Normal Limits Normal Wi thin Normal Limits [facility] Comment on above: Performed By: #### I NFLUAB #### [facility] [address] [place] [address] Dr. Ambrosio Ramirez XR CHEST 2 Von [...] GEORGE ROWE Date: 2022-01-27 14:42 Normal [facility] RPR QUANTon 08-26-2021 Rapid Plasma Reagin, Quant Non-Reactive Normal NonRea<1:1 [facility] Comment on above: Result Comment: Plea se Note: This test does not meet current guidelines for screening and diagnosis of syphilis. This test is intended for following treatment response in patients being treated for syphilis infection. To screen for syphilis infection, a reflex cascade that includes both RPR and a treponema-specific assay should be utilized, such as Treponema pallidum (Syphilis) Screening [place] (778645) or Rapid Plasma Reagin (RPR) Test With Reflex to Quantitative RPR and Confirmatory Treponema pallidum Antibodies (739680). Performed By: #### R PRQ #### [facility] [address] [place] [address] Dr. Ambrosio Ramirez HEP B SURFACE ANTIGEN SCREEN on 08-24-2021 HBsAg Screen Negative Normal Negative [facility] Comment on above: Performed By: #### H BSANS #### [facility] [address] [place] [address] Dr. Ambrosio Ramirez HEPATITIS C ANTIBODYon 08-24 Hep C Virus Ab <0.1 Normal 0.0-0.9 [facility] Comment on above: Result Comment: Nega tive: [...] Hepatitis C Virus (HCV) RNA, Diagnosis, JAYY (121439) and Hepatitis C Virus (HCV) Antibody with reflex to Quantitative Real-time PCR (311517). Performed By: #### H CV #### [facility] [address] [place] [address] Dr. Ambrosio Ramirez INSULINon 08-23-2021 Insulin 5.0 uIU/mL Normal 2.6-24.9 [facility] Comment on above: Performed By: #### A 1C #### [facility] [address] [place] [address] Dr. Ambrosio Ramirez OCC BLD IMMUNO SCREENon OCCULT BLOOD Negative Normal NEGATIVE [facility] Comment on above: Performed By: #### O BSCRN #### [facility] [address] [place] [address] Dr. Ambrosio Ramirez CBC AUTO DIFFon 08-22-2021 BASO # 0.1 103/ul Normal 0.0-0.1 [facility] Comment on above: Performed By: #### O BSCRN #### [facility] [address] [place] [address] Dr. Ambrosio Ramirez Basophils/100 WBC (Bld) 1.0 % Normal 0.2-2.0 [facility] Comment on above: Performed By: #### O BSCRN #### [facility] [address] [place] [address] Dr. Ambrosio Ramirez EO # 0.1 103/ul Normal 0.0-0.7 [facility] Comment on above: Performed By: #### O BSCRN #### [facility] [address] [place] [address] Dr. Ambrosio Ramirez Eosinophils/100 WBC (Bld) 1.8 % Normal 0.9-7.0 [facility] Comment on above: Performed By: #### O BSCRN #### [facility] [address] [place] [address] Dr. Ambrosio Ramirez Erythrocyte distribution width (RBC) [Ratio] 11.9 % Normal 11.0-15.0 [facility] Comment on above: Performed By: #### O BSCRN #### [facility] [address] [place] [address] Dr. Ambrosio Ramirez Hematocrit (Bld) [Volume fraction] 48.6 % Critically high 36.0-48.0 [facility] Comment on above: Performed By: #### O BSCRN #### [facility] [address] [place] [address] Dr. Ambrosio Ramirez Hemoglobin (Bld) [Mass/Vol] 16.3 g/dL Critically high 12.0-16.0 [facility] Comment on above: Performed By: #### O BSCRN #### [facility] [address] [place] [address] Dr. Ambrosio Ramirez IG # 0.03 10e3/ul Normal 0.00-0.03 [facility] Comment on above: Performed By: #### O BSCRN #### [facility] [address] [address] [address] Ambrosio Ramirez IG % 0.6 % Critically high 0.0-0.5 [facility] Comment on above: Performed By: #### O BSCRN #### [facility] [address] [address] [address] Ambrosio Ramirez LYMPH # 2.4 103/ul Normal 1.2-3.8 [facility] Comment on above: Performed By: #### O BSCRN #### [facility] [address] [address] [address] Ambrosio Ramirez Lymphocytes/100 WBC (Bld) 46.9 % Normal 20.5-60.0 [facility] Comment on above: Performed By: #### O BSCRN #### [facility] [address] [address] [address] Ambrosio Ramirez MANUAL DIFF REQ NO Normal [facility] Comment on above: Performed By: #### O BSCRN #### [facility] [address] [address] [address] Ambrosio Ramirez MCH (RBC) [Entitic mass] 34.9 pg Critically high 26.7-34.0 [facility] Comment on above: Performed By: #### O BSCRN #### [facility] [address] [address] [address] Ambrosio Ramirez MCHC (RBC) [Mass/Vol] 33.5 g/dL Normal 29.9-35.2 [facility] Comment on above: Performed By: #### O BSCRN #### [facility] [address] [address] [address] Ambrosio Ramirez MCV (RBC) [Entitic vol] 104.1 fL Critically high 81.0-99.0 [facility] Comment on above: Performed By: #### O BSCRN #### [facility] [address] [address] [address] Ambrosio Ramirez MONO # 0.4 103/ul Normal 0.3-0.8 [facility] Comment on above: Performed By: #### O BSCRN #### [facility] [address] [place] [address] Dr. Ambrosio Ramirez Monocytes/100 WBC (Bld) 8.2 % Normal 1.7-12.0 [facility] Comment on above: Performed By: #### O BSCRN #### [facility] [address] [place] [address] Dr. Ambrosio Ramirez NEUT # 2.1 103/ul Normal 1.4-6.5 [facility] Comment on above: Performed By: #### O BSCRN #### [facility] [address] [place] [address] Dr. Ambrosio Ramirez Neutrophils/100 WBC (Bld) 41.5 % Critically low 43.0-75.0 [facility] Comment on above: Performed By: #### O BSCRN #### [facility] [address] [place] [address] Dr. Ambrosio Ramirez Platelet mean volume (Bld) [Entitic vol] 9.3 fL Critically low 9.5-13.5 [facility] Comment on above: Performed By: #### O BSCRN #### [facility] [address] [place] [address] Dr. Ambrosio Ramirez PLT 210 103/ul Normal 150-450 [facility] Comment on above: Performed By: #### O BSCRN #### [facility] [address] [place] [address] Dr. Ambrosio Ramirez RBC 4.67 106/ul Normal 4.20-5.40 [facility] Comment on above: Performed By: #### O BSCRN #### [facility] [address] [place] [address] Dr. Ambrosio Ramirez WBC 5.0 103/ul Normal 4.0-11.0 [facility] Comment on above: Performed By: #### O BSCRN #### [facility] [address] [place] [address] Dr. Ambrosio Ramirez FREE THYROXINE INDEX T7on FTI 2.72 Normal 1.30-4.50 [facility] Comment on above: Performed By: #### O BSCRN #### [facility] [address] [address] [address] Ambrosio Ramirez T3U 32.0 % Normal 30.0-39.0 [facility] Comment on above: Performed By: #### O BSCRN #### [facility] [address] [address] [address] Ambrosio Ramirez T4 [Mass/Vol] 8.50 ug/dL Normal 4.80-13.90 [facility] Comment on above: Performed By: #### O BSCRN #### [facility] [address] [place] [address] Dr. Ambrosio Ramirez GLYCOHEMOGLOBIN A1Con 2021 ADA RECOMMENDATION SEE BELOW Normal [facility] Comment on above: Result Comment: ADA RECOMMENDED LIMIT 4.0 - 6.0 ADA THERAPEUTIC TARGET < 7.0 ACTION SUGGESTED > 7.0 Performed By: #### A 1C #### [facility] [address] [place] [address] Dr. Ambrosio Ramirez Glucose [Mass/Vol] 108 mg/dL Normal [facility] Comment on above: Performed By: #### A 1C #### [facility] [address] [place] [address] Dr. Ambrosio Ramirez HbA1c (Bld) [Mass fraction] 5.4 % Normal 4.5-6.2 [facility] Comment on above: Performed By: #### A 1C #### [facility] [address] [place] [address] Dr. Ambrosio Ramirez HIV 1/2 RAPID (EXPOSURE ONLY )on 08-22-2021 HIV AB Negative Normal [facility] Comment on above: Performed By: #### A 1C #### [facility] [address] [place] [address] Dr. Ambrosio Ramirez HIV AG Negative Normal [facility] Comment on above: Performed By: #### A 1C #### [facility] [address] [place] [address] Dr. Ambrosio Ramirez INTERNAL CONTROLS Within Normal Limits Normal Wi thin Normal Limits [facility] Comment on above: Performed By: #### A 1C #### [facility] [address] [place] [address] Dr. Ambrosio Ramirez RAPID HIV INFO SEE BELOW Normal [facility] Comment on above: Result Comment: This test is used for the initial screening of the exposure source. Confirmation of all results will be obtained through reference lab testing. Performed By: #### A 1C #### [facility] [address] [place] [address] Dr. Ambrosio Ramirez IRONon 08-22-2021 Iron [Mass/Vol] 137.0 ug/dL Normal 50.0-170.0 [facility] Comment on above: Performed By: #### I HAMLET #### [facility] [address] [place] [address] Dr. Ambrosio Ramirez LIPID PROFILEon 08-22-2021 CHOL-HDL RATIO NORM SEE BELOW Normal [facility] Comment on above: Result Comment: 3.3 - 4.4 LOW RISK 4.4 - 7.1 AVERAGE RISK 7.1 - 11.0 MODERATE RISK >11.0 HIGH RISK Performed By: #### O BSCRN #### [facility] [address] [place] [address] Dr. Ambrosio Ramirez Cholesterol [Mass/Vol] 251 mg/dL Critically high <=200 [facility] Comment on above: Performed By: #### O BSCRN #### [facility] [address] [place] [address] Dr. Ambrosio Ramirez Cholesterol in HDL [Mass/Vol] 67 mg/dL Critically high 40-60 [facility] Comment on above: Performed By: #### O BSCRN #### [facility] [address] [address] [address] Ambrosio Ramirez Cholesterol in LDL [Mass/Vol] 154.8 mg/dL Normal [facility] Comment on above: Performed By: #### O BSCRN #### [facility] [address] [place] [address] Dr. Ambrosio Ramirez Cholesterol.total/Cho lesterol in HDL [Mass ratio] 3.7 {ratio} Normal [facility] Comment on above: Performed By: #### O BSCRN #### [facility] [address] [address] [address] Ambrosio Ramirez HDL NORMAL > or = 60 mg/dl - LOW CARDIOVASCULAR RISK <40 mg/dl - HIGH CARDIOVASCULAR RISK Normal [facility] Comment on above: Performed By: #### O BSCRN #### [facility] [address] [address] [address] Ambrosio Ramirez LDL CALC NORMAL SEE BELOW Normal [facility] Comment on above: Result Comment: <100 mg/dl OPTIMAL 100 - 129 mg/dl NEAR OR ABOVE OPTIMAL 130 - 159 mg/dl BORDERLINE HIGH 160 - 189 mg/dl HIGH >190 mg/dl VERY HIGH Performed By: #### O BSCRN #### [facility] [address] [place] [address] Dr. Ambrosio Ramirez Triglyceride [Mass/Vol] 146 mg/dL Normal <=150 [facility] Comment on above: Performed By: #### O BSCRN #### [facility] [address] [address] [address] Ambrosio Ramirez VLDL CALC 29.2 mg/dL Normal [facility] Comment on above: Performed By: #### O BSCRN #### [facility] [address] [address] [address] Ambrosio Ramirez PROF 14(COMP METB)on 022 Albumin [Mass/Vol] 4.3 g/dL Normal 3.4-5.0 [facility] Comment on above: Performed By: #### O BSCRN #### [facility] [address] [place] [address] Dr. Ambrosio Ramirez Albumin/Globulin [Mass ratio] 1.2 {ratio} Normal [facility] Comment on above: Performed By: #### O BSCRN #### [facility] [address] [place] [address] Dr. Ambrosio Ramirez ALP [Catalytic activity/Vol] 57 U/L Normal 46-116 [facility] Comment on above: Performed By: #### O BSCRN #### [facility] [address] [address] [address] Ambrosio Ramirez ALT [Catalytic activity/Vol] 56 U/L Normal 14-59 [facility] Comment on above: Performed By: #### O BSCRN #### [facility] [address] [address] [address] Ambrosio Ramirez Anion gap [Moles/Vol] 11.5 mmol/L Normal [facility] Comment on above: Performed By: #### O BSCRN #### [facility] [address] [address] [address] Ambrosio Ramirez AST [Catalytic activity/Vol] 75 U/L Critically high 15-37 [facility] Comment on above: Performed By: #### O BSCRN #### [facility] [address] [place] [address] Dr. Ambrosio Ramirez Bilirubin [Mass/Vol] 0.4 mg/dL Normal 0.2-1.0 [facility] Comment on above: Performed By: #### O BSCRN #### [facility] [address] [place] [address] Dr. Ambrosio Ramirez Calcium [Mass/Vol] 8.7 mg/dL Normal 8.5-10.1 [facility] Comment on above: Performed By: #### O BSCRN #### [facility] [address] [place] [address] Dr. Ambrosio Ramirez Chloride [Moles/Vol] 105 mmol/L Normal 98-107 [facility] Comment on above: Performed By: #### O BSCRN #### [facility] [address] [place] [address] Dr. Ambrosio Ramirez CO2 [Moles/Vol] 30.3 mmol/L Normal 21.0-32.0 [facility] Comment on above: Performed By: #### O BSCRN #### [facility] [address] [address] [address] Ambrosio Ramirez Creatinine [Mass/Vol] 0.67 mg/dL Normal 0.55-1.02 [facility] Comment on above: Performed By: #### O BSCRN #### [facility] [address] [address] [address] Ambrosio Ramirez EGFR-AF GABONESE >60 Normal >=60 [facility] Comment on above: Performed By: #### O BSCRN #### [facility] [address] [address] [address] Ambrosio Ramirez EGFR-NON AF GABONESE >60 Normal >=60 [facility] Comment on above: Performed By: #### O BSCRN #### [facility] [address] [address] [address] Ambrosio Ramirez Globulin (S) [Mass/Vol] 3.7 g/dL Normal [facility] Comment on above: Performed By: #### O BSCRN #### [facility] [address] [address] [address] Ambrosio Ramirez Glucose [Mass/Vol] 93 mg/dL Normal 74-106 [facility] Comment on above: Performed By: #### O BSCRN #### [facility] [address] [address] [address] Ambrosio Ramirez Potassium [Moles/Vol] 4.8 mmol/L Normal 3.5-5.1 [facility] Comment on above: Performed By: #### O BSCRN #### [facility] [address] [place] [address] Dr. Ambrosio Ramirez Protein [Mass/Vol] 8.0 g/dL Normal 6.4-8.2 [facility] Comment on above: Performed By: #### O BSCRN #### [facility] [address] [place] [address] Dr. Ambrosio Ramirez Sodium [Moles/Vol] 142 mmol/L Normal 136-145 [facility] Comment on above: Performed By: #### O BSCRN #### [facility] [address] [address] [address] Ambrosio Ramirez Urea nitrogen [Mass/Vol] 8.0 mg/dL Normal 7.0-18.0 [facility] Comment on above: Performed By: #### O BSCRN #### [facility] [address] [place] [address] Dr. Ambrosio Ramirez Urea nitrogen/Creatinine [Mass ratio] 11.9 mg/mg Normal [facility] Comment on above: Performed By: #### O BSCRN #### [facility] [address] [address] [address] Ambrosio Ramirez TSHon 08-22-2021 TSH 2.117 uIU/mL Normal 0.358-3.740 [facility] Comment on above: Performed By: #### O BSCRN #### [facility] [address] [address] [address] Ambrosio Ramirez XR CSPINE MIN 4 [...] Cervical fusion hardware with no mechanical failure [id number] degenerative changes of the cervical thoracic spine Electronically authenticated by: GEORGE ROWE Date: 2021-08-22 21:07 Normal [facility] Vital Signs Date Time Vital Sign Value Performing Clinician Facility 05-09-2022 10:14-0400 Diastolic blood pressure 85 mm[Hg] WILDLIFE MANAGER-C Ama Edwards Work Phone: [facility] 05-09-2022 10:14-0400 Heart rate 99 /min WILDLIFE MANAGER-C Ama Edwards Work Phone: [facility] 05-09-2022 10:14-0400 Respiratory rate 18 /min WILDLIFE MANAGER-Fabricio Edwards Work Phone: [facility] 05-09-2022 10:14-0400 SaO2% (BldA) [Mass fraction] 99 % WILDLIFE MANAGER-Fabricio Edwards Work Phone: [facility] 05-09-2022 10:14-0400 Systolic blood pressure 124 mm[Hg] WILDLIFE MANAGER-C Ama Edwards Work Phone: [facility] 05-09-2022 08:04-0400 Body height 180.34 cm WILDLIFE MANAGER-C Ama Edwards Work Phone: [facility] 05-09-2022 08:04-0400 Body weight 58.96 kg WILDLIFE MANAGER-C Ama Edwards Work Phone: [facility] 05-01-2022 11:15-0500 Body height Imad Asaad Other [employer] Other 05-01-2022 11:15-0500 Body mass index (BMI) [Ratio] 18.13 kg/m2 Imad Asaad Other [employer] Other 05-01-2022 11:15-0500 Body weight 58.97 kg Imad Asaad Other [employer] Other 05-01-2022 11:15-0500 Diastolic blood pressure 102 mm[Hg] Imad Asaad Other [employer] Other 05-01-2022 11:15-0500 Respiratory rate 16 /min Imad Asaad Other [employer] Other 05-01-2022 11:15-0500 Systolic blood pressure 158 mm[Hg] Imad Asaad Other [employer] Other Encounters Encounter Date Encounter Type Care Provider Facility Start: 12-22-2023 End: 12-22-2023 ambulatory LEIGH CLARK Facility:[facility] Start: 12-22-2023 End: 12-22-2023 Patient encounter procedure LEIGH CLARK [facility] Start: 12-14-2023 End: 12-14-2023 ambulatory Manuel Lugoitis Facility:[facility] Start: 11-23-2023 ambulatory LEIGH CLARK Facility :[facility] Start: 09-21-2023 End: 09-21-2023 ambulatory Manuel Lugoitis Facility:[facility] Start: 08-31-2023 End: 08-31-2023 ambulatory Andrius Naila Lugoitis Facility:[facility] Start: 08-17-2023 End: 08-17-2023 ambulatory Manuel Lugoitis Facility:[facility] Start: 07-06-2023 End: 07-06-2023 ambulatory Andkrishna Lugoitis Facility:[facility] Start: 05-09-2022 End: 05-09-2022 ambulatory Ama Edwards Facility:[facility] Start: 05-09-2022 End: 05-09-2022 Admission to same day surgery center WILDLIFE MANAGER-C Ama Edwards Work Phone: [facility] Work Phone: Start: 05-09-2022 End: 05-09-2022 ambulatory WILDLIFE MANAGER-C Ama Edwards Work Phone: [facility] Work Phone: Start: 05-02-2022 End: 05-02-2022 ambulatory Imad Asaad Other [employer] Other Start: 05-02-2022 Telephone encounter Imad Asaad [facility] Start: 05-01-2022 End: 05-01-2022 ambulatory Imad Asaad Other [employer] Other Start: 05-01-2022 Office consultation new/estab patient [...] Procedure Detail Performing Clinician Start: 05-09-2022 Esophagogastroduodenoscopy WILDLIFE MANAGER-Fabricio patel Work Phone: Screening for malign ant neoplasm of colon Imad Asaad Other Plan of Treatment Date Care Activity Detail Author Start: 05-09-2022 [facility] Patient Education Colon Polyps H emorrhoids (DC) Diverticulosis (DC) Gastritis (DC) [facility] Work Phone: Payers Date Payer Category Payer Self-pay 2022 Unknown 1960 Unknown [id number] 2.16.84 [id number] 1960 Unknown [id number] 2.16.84 [id number] 1960 Unknown [id number] 2.16.84 [id number] 1960 Unknown [id number] 2.16.84 [id number] 1962 Unknown [id number] 2.16.84 [id number] 1962 Unknown [id number] 2.16.84 [id number] 1962 Unknown [id number] 2.16.84 [id number] 1962 Unknown [id number] 2.16. [id number] 1960 Unknown [id number] 2.16. [id number] 1962 Unknown [id number] 2.16. [id number] 1962 Unknown [id number] 2.16. [id number] 1960 Unknown [id number] 2.16. [id number] 1957 Medicare [id number] 21 [id number] 1959 Unknown [id number] 1957 Unknown [id number] 1957 Unknown [id number] Unknown [id number] 2.16.8 [id number] Social History Date Type Detail Facility Start: 05-09-2022 [facility] Start: 1960 Sex Assigned At Female F [facility] Sex Assigned At [facility] Tobacco smoking status No Smokin g Status Entered [facility] Goals Date Patient Goal Desired Activity /State Procedure note 05-09-2022 Note Date & Type Note Facility 05-09-2022 Procedure note [facility] Evaluation note 05-01-2022 Note Date & Type Note Facility 05-01-2022 Evaluation note Encounter Date Diagnosis Assessment Notes Apr, Dysphagia (ICD-10 - R13.10) Apr, Weight loss (ICD-10 - R63.4) Apr, Colon cancer screening (ICD-10 - Z12.11) [employer] Other Evaluation + Plan note Note Date & Type Note Facility Evaluation + Plan note No data available for this section [facility] Evaluation note Note Date & Type Note Facility Evaluation note No assessment information jesse navas [facility] Work Phone: Evaluation note Note Date & Type Note Facility Evaluation note No Information [facility] [employer] Other History general Narrative - Reported Note Date & Type Note Facility History general Narrative - Reported Type Medical History Anxiety/Depression Surgical History Neck surgery Surgical History Tonsillectomy Hospitalization History See above [employer] Other Hospital Discharge instructions Note Date & [...] -Follow up with PCP. - Office number [phone]. [facility] Work Phone: Hospital Discharge instructions Note Date & Type Note Facility Hospital Discharge instructions No data available for this section [facility] Progress note Note Date & Type Note Facility Progress note No data available for this section [facility] Chief Complaint and Reason for Visit Chief [...] and content) [facility]HEA, WEIGHT LOSS AND DYSPHAGIAClinical INFORMATION SOURCE (unrecogn ized section and content) DATE CREATED AUTHOR 05/20/2022 [facility] DATE CREATED AUTHOR AUTHOR'S ORGANIZ ATION 07/02/2022 [facility] DATE CREATED AUTHOR AUTHOR'S ORGANIZ ATION 12/20/2023 [facility] DATE CREATED AUTHOR AUTHOR'S ORGANIZ ATION 12/24/2023 [facility] FOR RECORDS PERTAINING TO PATIENTS WHO [...] BE BASED ON THE PRIMARY CLINICAL RECORDS. [employer] provides no warranty or guarantee of the accuracy or completeness of information in this document.
[2023-12-28 09:13] VITALS: BP 154/96; PULSE 86; TEMP 36.2; O2SAT 97
[2023-12-28] MEDS: 0.9 % SODIUM CHLORIDE 500 ML IV (09:21)
[2023-12-28] MEDS: LIDOCAINE HCL 2% 400 MG/20 ML MDV INJ (10:09)
[2023-12-28] MEDS: DEXAMETHASONE SOD PHOS 10 MG/ML VIAL INJ (10:09)
[2023-12-28] MEDS: BUPIVACAINE HCL 0.25% PF 25 MG/10 ML VIAL INJ (10:09)
[2023-12-28] MEDS: IOHEXOL 240 MG/ML - 10 ML VIAL 12 MG INJ (10:09)
--- NOTE | 2023-12-28 10:10 | W.PM.PROCNOT ---
Date of procedure: 12/28/23 Pre-op diagnosis: Pain due to cervical radiculopathy, cervical postlaminectomy syndrome Post-op diagnosis: same as pre-op Procedure: Procedure: Bilateral C3-4 transforaminal epidural steroid injection Medications: Bupivacaine 0.25% 2cc, lidocaine 2% 1cc, dexamethasone 10mg The patient was seen and examined in the preoperative holding area.? Informed consent was obtained and placed on the chart.? Patient was brought to the medical procedure unit and placed in the prone position where a timeout was completed verifying the correct patient, procedure site, position, and planned special equipment using sterile aseptic technique.? Under direct fluoroscopic visualization a 25-gauge Quincke tipped spinal needle was advanced at level left C3-4 to the designated neural foramen where contrast dye was injected to show adequate spread.? There was no evidence of vascular or adverse uptake.? Epidural spread was appreciated.? The above-mentioned injectate was then placed in a 1.5 mL aliquot preceded by negative aspiration.? The needle was removed. The same procedure, at the same level, was completed on the opposite side. ? Patient was taken to the postprocedural recovery area and monitored for an appropriate length of time before found suitable for discharge in the accompaniment of a responsible adult. Anesthesia: MAC Surgeon: Manuel Reynaga Pathology: none sent Condition: stable Disposition: no change
[2023-12-28 10:12] VITALS: BP 155/96; PULSE 83; TEMP 37.1; O2SAT 97
[2023-12-28 10:23] VITALS: BP 137/68; PULSE 80; TEMP 37.1; O2SAT 96
== END 2023-12-28 10:42 | disposition home or self-care (01) ==
PROVIDERS: PCP Nurse Practitioner Family; Visit Provider Anesthesiology
DX: M54.12 Radiculopathy, cervical region (principal); M96.1 Postlaminectomy syndrome, not elsewhere classified; I10 Essential (primary) hypertension; K21.9 Gastro-esophageal reflux disease without esophagitis
CPT/HCPCS: 64479; J0665; J1100; J2704; Q9966

== ENCOUNTER 2024-01-06 09:26 | Outpatient (OUT) | payer MEDICARE, OTHER, MEDICAID, SELFPAY ==
--- OUTSIDE RECORDS SUMMARY | 2024-01-06 09:44 | XMS_ITS | CCD ---
Author Organization [facility] Care Team Providers Care Roll Forger Name Role Phone MD Nesha Bryant Attending [...] Care Unavailable JERRY, AMA Attending Unavailable JERRY, MAA Primary Care Unavailable DR GEORGE ROWE V Consulting Unavailable JERRY, AMA Admitting Unavailable JERRY, AMA Consulting Unavailable Thompson Diane Primary Care Physician LEIGH CLARK Attending Unavailable Thompson Diane Referring Unavailable Juhi LEON, Manuel Yoo Attending Unavailable Juhi LEON, Manuel Yoo Attending Unavailable Gicarmenitis , Manuel Yoo Attending Unavailable Gieditis , Manuel Yoo Attending Unavailable Giteo LEON, Manuel Yoo Attending Unavailable Giedcitlalli LEON, Manuel Yoo Attending Unavailable Medications Current [...] 30 days Apr, Active polyethylene glycol 3350 120593 mg / potassium chloride 2970 mg / sodium bicarbonate 6740 mg / sodium chloride 5860 mg / sodium sulfate 52255 mg powder for oral solution (2 sources) [...] Test Name Value Interpretation Reference Range Facility [facility] 05-09-2022 L Specimen: [id number] Received: 05/09/22 Status: EDUARD Zaragoza Num: [id number] Spec Type: Surgical Subm Dr: Nesha Bryant MD Tissues: A Gastric Biopsy (GASTRIC) B Esophagus Biopsy (DISTAL ESOPHAGUS) C Esophagus Biopsy (PROXIMAL ESOPHAGUS) D Colon Biopsy (CECAL POLYP) E Colon Biopsy (SIGMOID POLYP) F Colon Biopsy (RECTAL POLYPS X3) Procedures: ROSI/Barbara, Gross/Micro L4/6 Age/ Patient Sex Location Account Attending Physician Nancy Joyce 61/F [id number] Nesha Bryant MD SPEC NUM: [id number] RECD: 05/09/22 STATUS: EDUARD ZARAGOZA NUM: [id number] KATY: 05/09/22- SUBM DR: Nesha Bryant MD ENTERED: 05/09/[address] [facility] [address]: SPEC TYPE: Surgical DEPT: S ORDERED: [...] mucosal fold. - Negative for adenoma/dysplasia. Specimen: [id number] Received: 05/09/22 Status: EDUARD Zaragoza Num: [id number] Spec Type: Surgical Subm Dr: Nesha Bryant MD Tissues: A Gastric Biopsy (GASTRIC) B Esophagus Biopsy (DISTAL ESOPHAGUS) C Esophagus Biopsy (PROXIMAL ESOPHAGUS) D Colon Biopsy (CECAL POLYP) E Colon Biopsy (SIGMOID POLYP) F Colon Biopsy (RECTAL POLYPS X3) Procedures: , Gross/Micro L4/6 Patient: Nancy Joyce [id number] (Continued) Specimen: [id number] Received: 05/09/22 (Continued) Pathological Diagnosis (Continued) Signed (signature on file) Carin Oliveros MD 05/12/22 1130 Specimen: [id number] Received: 05/09/22 Status: EDUARD Zaragoza Num: [id number] Spec Type: Surgical Subm Dr: Nesha Bryant MD Tissues: A Gastric Biopsy (GASTRIC) B Esophagus Biopsy (DISTAL ESOPHAGUS) C Esophagus Biopsy (PROXIMAL ESOPHAGUS) D Colon Biopsy (CECAL POLYP) E Colon Biopsy (SIGMOID POLYP) F Colon Biopsy (RECTAL POLYPS X3) Procedures: , Gross/Micro L4/6 Patient: Nancy Joyce [id number] (Continued) Specimen: [id number] Received: 05/09/22-1039 (Continued) Pathological Diagnosis (Continued) E. [...] labeled 1. (more content not included)... Normal [facility] XR MODIFIED BARIUM SWALLOWon 03-25-2022 XR [...] RINCON Date: 2022-03-25 13:[address] [facility] INSULINon 03-13-2022 Insulin 3.9 uIU/mL Normal 2.6-24.9 [facility] Comment on above: Performed By: #### O BSCRN #### [facility] [address] [place] [address] Dr. Ambrosio Ramirez XR CSPINE MIN 4 [...] DENNY RINCON Date: 2022-03-13 08:09 Normal [facility] CBC AUTO DIFFon 03-12-2022 BASO # 0.0 103/ul Normal 0.0-0.[address] [facility] Comment on above: Performed By: #### C BC #### [facility] [address] [place] [address] Dr. Ambrosio Ramirez Basophils/100 WBC (Bld) 0.7 % Normal 0.2-2.[address] [facility] Comment on above: Performed By: #### C BC #### [facility] [address] [place] [address] Dr. Ambrosio Ramirez EO # 0.1 103/ul Normal 0.0-0.7 [facility] Comment on above: Performed By: #### C BC #### [facility] [address] [place] [address] Dr. Ambrosio Ramirez Eosinophils/100 WBC (Bld) 0.9 % Normal 0.9-7.[address] [facility] Comment on above: Performed By: #### C BC #### [facility] [address] [place] [address] Dr. Ambrosio Ramirez Erythrocyte distribution width (RBC) [Ratio] 12.3 % Normal 11.0-15.[address] [facility] Comment on above: Performed By: #### C BC #### [facility] [address] [place] [address] Dr. Ambrosio Ramirez Hematocrit (Bld) [Volume fraction] 46.0 % Normal 36.0-48.[address] [facility] Comment on above: Performed By: #### C BC #### [facility] [address] [place] [address] Dr. Ambrosio Ramirez Hemoglobin (Bld) [Mass/Vol] 15.2 g/dL Normal 12.0-16.0 [facility] Comment on above: Performed By: #### C BC #### [facility] [address] [place] [address] Dr. Ambrosio Ramirez IG # 0.03 10e3/ul Normal 0.00-0.[address] [facility] Comment on above: Performed By: #### C BC #### [facility] [address] [place] [address] Dr. Ambrosio Ramirez IG % 0.5 % Normal 0.0-0.[address] [facility] Comment on above: Performed By: #### C BC #### [facility] [address] [place] [address] Dr. Ambrosio Ramirez LYMPH # 2.0 103/ul Normal 1.2-3.[address] [facility] Comment on above: Performed By: #### C BC #### [facility] [address] [place] [address] Dr. Ambrosio Ramirez Lymphocytes/100 WBC (Bld) 35.0 % Normal 20.5-60.[address] [facility] Comment on above: Performed By: #### C BC #### [facility] [address] [place] [address] Dr. Ambrosio Ramirez MANUAL DIFF REQ NO Normal [facility] Comment on above: Performed By: #### C BC #### [facility] [address] [place] [address] Dr. Ambrosio Ramirez MCH (RBC) [Entitic mass] 33.8 pg Normal 26.7-34.[address] [facility] Comment on above: Performed By: #### C BC #### [facility] [address] [place] [address] Dr. Ambrosio Ramirez MCHC (RBC) [Mass/Vol] 33.0 g/dL Normal 29.9-35.[address] [facility] Comment on above: Performed By: #### C BC #### [facility] [address] [place] [address] Dr. Ambrosio Ramirez MCV (RBC) [Entitic vol] 102.2 fL Critically high 81.0-99.[address] [facility] Comment on above: Performed By: #### C BC #### [facility] [address] [place] [address] Dr. Ambrosio Ramirez MONO # 0.4 103/ul Normal 0.3-0.[address] [facility] Comment on above: Performed By: #### C BC #### [facility] [address] [place] [address] Dr. Ambrosio Ramirez Monocytes/100 WBC (Bld) 7.2 % Normal 1.7-12.0 [facility] Comment on above: Performed By: #### C BC #### [facility] [address] [address] [address] Ambrosio Ramirez NEUT # 3.2 103/ul Normal 1.4-6.[address] [facility] Comment on above: Performed By: #### C BC #### [facility] [address] [place] [address] Dr. Ambrosio Ramirez Neutrophils/100 WBC (Bld) 55.7 % Normal 43.0-75.[address] [facility] Comment on above: Performed By: #### C BC #### [facility] [address] [place] [address] Dr. Ambrosio Ramirez Platelet mean volume (Bld) [Entitic vol] 9.1 fL Critically low 9.5-13.[address] [facility] Comment on above: Performed By: #### C BC #### [facility] [address] [place] [address] Dr. Ambrosio Ramirez PLT 234 103/ul Normal 150-450 [facility] Comment on above: Performed By: #### C BC #### [facility] [address] [place] [address] Dr. Ambrosio Ramirez RBC 4.50 106/ul Normal 4.20-5.40 [facility] Comment on above: Performed By: #### C BC #### [facility] [address] [place] [address] Dr. Ambrosio Ramirez WBC 5.7 103/ul Normal 4.0-11.0 [facility] Comment on above: Performed By: #### C BC #### [facility] [address] [place] [address] Dr. Ambrosio Ramirez FREE THYROXINE INDEX T7on FTI 2.41 Normal 1.30-4.50 [facility] Comment on above: Performed By: #### A 1C #### [facility] [address] [place] [address] Dr. Ambrosio Ramirez T3U 33.0 % Normal 30.0-39.[address] [facility] Comment on above: Performed By: #### A 1C #### [facility] [address] [address] [address] Ambrosio Ramirez T4 [Mass/Vol] 7.30 ug/dL Normal 4.80-13.90 [facility] Comment on above: Performed By: #### A 1C #### [facility] [address] [address] [address] Ambrosio Ramirez GLYCOHEMOGLOBIN A1Con 2022 ADA RECOMMENDATION SEE BELOW Normal [facility] Comment on above: Result Comment: ADA RECOMMENDED LIMIT 4.0 - 6.0 ADA THERAPEUTIC TARGET < 7.0 ACTION SUGGESTED > 7.0 Performed By: #### A 1C #### [facility] [address] [address] [address] Ambrosio Ramirez Glucose [Mass/Vol] 100 mg/dL Normal [facility] Comment on above: Performed By: #### A 1C #### [facility] [address] [address] [address] Ambrosio Ramirez HbA1c (Bld) [Mass fraction] 5.1 % Normal 4.5-6.[address] [facility] Comment on above: Performed By: #### A 1C #### [facility] [address] [address] [address] Ambrosio Ramirez IRONon 03-12-2022 Iron [Mass/Vol] 148.0 ug/dL Normal 50.0-170.0 [facility] Comment on above: Performed By: #### O BSCRN #### [facility] [address] [address] [address] Ambrosio Ramirez LIPID PROFILEon 03-12-2022 CHOL-HDL RATIO NORM SEE BELOW Normal [facility] Comment on above: Result Comment: 3.3 - 4.4 LOW RISK 4.4 - 7.1 AVERAGE RISK 7.1 - 11.0 MODERATE RISK >11.0 HIGH RISK Performed By: #### A 1C #### [facility] [address] [place] [address] Dr. Ambrosio Ramirez Cholesterol [Mass/Vol] 234 mg/dL Critically high <=[address] [facility] Comment on above: Performed By: #### A 1C #### [facility] [address] [place], [place] [address] Dr. Ambrosio Ramirez Cholesterol in HDL [Mass/Vol] 71 mg/dL Critically high 40-[address] [facility] Comment on above: Performed By: #### A 1C #### [facility] [address] [place], [place] [address] Dr. Ambrosio Ramirez Cholesterol in LDL [Mass/Vol] 132.4 mg/dL Normal [facility] Comment on above: Performed By: #### A 1C #### [facility] [address] [address] [address] Ambrosio Ramirez Cholesterol.total/Cho lesterol in HDL [Mass ratio] 3.3 {ratio} Normal [facility] Comment on above: Performed By: #### A 1C #### [facility] [address] [address] [address] Ambrosio Ramirez HDL NORMAL > or = 60 mg/dl - LOW CARDIOVASCULAR RISK <40 mg/dl - HIGH CARDIOVASCULAR RISK Normal [facility] Comment on above: Performed By: #### A 1C #### [facility] [address] [address] [address] Ambrosio Ramirez LDL CALC NORMAL SEE BELOW Normal [facility] Comment on above: Result Comment: <100 mg/dl OPTIMAL 100 - 129 mg/dl NEAR OR ABOVE OPTIMAL 130 - 159 mg/dl BORDERLINE HIGH 160 - 189 mg/dl HIGH >190 mg/dl VERY HIGH Performed By: #### A 1C #### [facility] [address] [address] [address] Ambrosio Ramirez Triglyceride [Mass/Vol] 153 mg/dL Critically high <=150 [facility] Comment on above: Performed By: #### A 1C #### [facility] [address] [address] [address] Ambrosio Ramirez VLDL CALC 30.6 mg/dL Normal [facility] Comment on above: Performed By: #### A 1C #### [facility] [address] [address] [address] Ambrosio Ramirez PROF 14(COMP METB)on 023 Albumin [Mass/Vol] 4.2 g/dL Normal 3.4-5.0 [facility] Comment on above: Performed By: #### A 1C #### [facility] [address] [address] [address] Ambrosio Ramirez Albumin/Globulin [Mass ratio] 1.3 {ratio} Normal [facility] Comment on above: Performed By: #### A 1C #### [facility] [address] [address] [address] Ambrosio Ramirez ALP [Catalytic activity/Vol] 62 U/L Normal 46-[address] [facility] Comment on above: Performed By: #### A 1C #### [facility] [address] [place] [address] Dr. Ambrosio Ramirez ALT [Catalytic activity/Vol] 27 U/L Normal 14-[address] [facility] Comment on above: Performed By: #### A 1C #### [facility] [address] [place] [address] Dr. Ambrosio Ramirez Anion gap [Moles/Vol] 12.8 mmol/L Normal [facility] Comment on above: Performed By: #### A 1C #### [facility] [address] [place] [address] Dr. Ambrosio Ramirez AST [Catalytic activity/Vol] 39 U/L Critically high 15-[address] [facility] Comment on above: Performed By: #### A 1C #### [facility] [address] [place] [address] Dr. Ambrosio Ramirez Bilirubin [Mass/Vol] 0.4 mg/dL Normal 0.2-1.[address] [facility] Comment on above: Performed By: #### A 1C #### [facility] [address] [place] [address] Dr. Ambrosio Ramirez Calcium [Mass/Vol] 9.1 mg/dL Normal 8.5-10.1 [facility] Comment on above: Performed By: #### A 1C #### [facility] [address] [place] [address] Dr. Ambrosio Ramirez Chloride [Moles/Vol] 103 mmol/L Normal 98-[address] [facility] Comment on above: Performed By: #### A 1C #### [facility] [address] [address] [address] Ambrosio Ramirez CO2 [Moles/Vol] 30.5 mmol/L Normal 21.0-32.0 [facility] Comment on above: Performed By: #### A 1C #### [facility] [address] [address] [address] Ambrosio Ramirez Creatinine [Mass/Vol] 0.54 mg/dL Critically low 0.55-1.02 [facility] Comment on above: Performed By: #### A 1C #### [facility] [address] [address] [address] Ambrosio Ramirez EGFR-AF SAMOAN >60 Normal >=60 [facility] Comment on above: Performed By: #### A 1C #### [facility] [address] [place] [address] Dr. Ambrosio Ramirez EGFR-NON AF SAMOAN >60 Normal >=60 [facility] Comment on above: Performed By: #### A 1C #### [facility] [address] [place] [address] Dr. Ambrosio Ramirez Globulin (S) [Mass/Vol] 3.3 g/dL Normal [facility] Comment on above: Performed By: #### A 1C #### [facility] [address] [place] [address] Dr. Ambrosio Ramirez Glucose [Mass/Vol] 88 mg/dL Normal 74-106 [facility] Comment on above: Performed By: #### A 1C #### [facility] [address] [address] [address] Ambrosio Ramirez Potassium [Moles/Vol] 4.3 mmol/L Normal 3.5-5.1 [facility] Comment on above: Performed By: #### A 1C #### [facility] [address] [place] [address] Dr. Ambrosio Ramirez Protein [Mass/Vol] 7.5 g/dL Normal 6.4-8.2 [facility] Comment on above: Performed By: #### A 1C #### [facility] [address] [place] [address] Dr. Ambrosio Ramirez Sodium [Moles/Vol] 142 mmol/L Normal 136-145 [facility] Comment on above: Performed By: #### A 1C #### [facility] [address] [place] [address] Dr. Ambrosio Ramirez Urea nitrogen [Mass/Vol] 9.0 mg/dL Normal 7.0-18.[address] [facility] Comment on above: Performed By: #### A 1C #### [facility] [address] [place] [address] Dr. Ambrosio Ramirez Urea nitrogen/Creatinine [Mass ratio] 16.7 mg/mg Normal [facility] Comment on above: Performed By: #### A 1C #### [facility] [address] [place] [address] Dr. Ambrosio Ramirez TSHon 03-12-2022 TSH 1.934 uIU/mL Normal 0.358-3.740 [facility] Comment on above: Performed By: #### A 1C #### [facility] [address] [place] [address] Dr. Ambrosio Ramirez XR TSPINE 3 VIEWSon [...] GEORGE CATALAN Date: 2022-03-12 17:07 Normal [facility]on SARS-CoV-2 (COVID-19) RNA JAYY+probe Ql (Unsp spec) Not detected Normal NOT DETECTED [facility] Comment on above: Result Comment: When [...] for this test is supported by the Research Investigator of Health and Human Service's declaration that [...] used). Performed By: #### C VDTBH #### [facility] [address] [place] [address] Dr. Ambrosio Ramirez INFLUENZA A AND B AGon 01-27 INFLUENZA A AG Negative Normal NEGATIVE SEE COMMENT [facility] Comment on above: Performed By: #### I NFLUAB #### [facility] [address] [place] [address] Dr. Ambrosio Ramirez INFLUENZA B AG Negative Normal NEGATIVE SEE COMMENT [facility] Comment on above: Performed By: #### I NFLUAB #### [facility] [address] [place] [address] Dr. Ambrosio Ramirez INTERNAL CONTROLS Within Normal Limits Normal Wi thin Normal Limits [facility] Comment on above: Performed By: #### I NFLUAB #### [facility] [address] [place] [address] Dr. Ambrosio Ramirez XR CHEST 2 Von [...] GEORGE ROWE Date: 2022-01-27 14:42 Normal [facility] RPR QUANTon 08-26-2021 Rapid Plasma Reagin, Quant Non-Reactive Normal NonRea<1:1 [facility] Comment on above: Result Comment: Hadley mitchell Note: This test does not meet current guidelines for screening and diagnosis of syphilis. This test is intended for following treatment response in patients being treated for syphilis infection. To screen for syphilis infection, a reflex cascade that includes both RPR and a treponema-specific assay should be utilized, such as Treponema pallidum (Syphilis) Screening [place] (001647) or Rapid Plasma Reagin (RPR) Test With Reflex to Quantitative RPR and Confirmatory Treponema pallidum Antibodies (059650). Performed By: #### R PRQ #### [facility] [address] [place] [address] Dr. Ambrosio Ramirez HEP B SURFACE ANTIGEN SCREEN on 08-24-2021 HBsAg Screen Negative Normal Negative [facility] Comment on above: Performed By: #### H BSANS #### [facility] [address] [place] [address] Dr. Ambrosio Ramirez HEPATITIS C ANTIBODYon 08-24 Hep C Virus Ab <0.1 Normal 0.0-0.9 [facility] Comment on above: Result Comment: Nega [...] Hepatitis C Virus (HCV) RNA, Diagnosis, JAYY (933675) and Hepatitis C Virus (HCV) Antibody with reflex to Quantitative Real-time PCR (111397). Performed By: #### H CV #### [facility] [address] [place] [address] Dr. Ambrosio Ramirez INSULINon 08-23-2021 Insulin 5.0 uIU/mL Normal 2.6-24.[address] [facility] Comment on above: Performed By: #### A 1C #### [facility] [address] [place] [address] Dr. Ambrosio Ramirez OCC BLD IMMUNO SCREENon OCCULT BLOOD Negative Normal NEGATIVE [facility] Comment on above: Performed By: #### O BSCRN #### [facility] [address] [place] [address] Dr. Ambrosio Ramirez CBC AUTO DIFFon 08-22-2021 BASO # 0.1 103/ul Normal 0.0-0.[address] [facility] Comment on above: Performed By: #### O BSCRN #### [facility] [address] [place] [address] Dr. Ambrosio Ramirez Basophils/100 WBC (Bld) 1.0 % Normal 0.2-2.[address] [facility] Comment on above: Performed By: #### O BSCRN #### [facility] [address] [place] [address] Dr. Ambrosio Ramirez EO # 0.1 103/ul Normal 0.0-0.[address] [facility] Comment on above: Performed By: #### O BSCRN #### [facility] [address] [place] [address] Dr. Ambrosio Ramirze Eosinophils/100 WBC (Bld) 1.8 % Normal 0.9-7.[address] [facility] Comment on above: Performed By: #### O BSCRN #### [facility] [address] [place] [address] Dr. Ambrosio Ramirez Erythrocyte distribution width (RBC) [Ratio] 11.9 % Normal 11.0-15.[address] [facility] Comment on above: Performed By: #### O BSCRN #### [facility] [address] [place] [address] Dr. Ambrosio Ramirez Hematocrit (Bld) [Volume fraction] 48.6 % Critically high 36.0-48.[address] [facility] Comment on above: Performed By: #### O BSCRN #### [facility] [address] [place] [address] Dr. Ambrosio Ramirez Hemoglobin (Bld) [Mass/Vol] 16.3 g/dL Critically high 12.0-16.[address] [facility] Comment on above: Performed By: #### O BSCRN #### [facility] [address] [place] [address] Dr. Ambrosio Ramirez IG # 0.03 10e3/ul Normal 0.00-0.[address] [facility] Comment on above: Performed By: #### O BSCRN #### [facility] [address] [place] [address] Dr. Ambrosio Ramirez IG % 0.6 % Critically high 0.0-0.5 [facility] Comment on above: Performed By: #### O BSCRN #### [facility] [address] [place] [address] Dr. Ambrosio Ramirez LYMPH # 2.4 103/ul Normal 1.2-3.[address] [facility] Comment on above: Performed By: #### O BSCRN #### [facility] [address] [place] [address] Dr. Ambrosio Ramirez Lymphocytes/100 WBC (Bld) 46.9 % Normal 20.5-60.[address] [facility] Comment on above: Performed By: #### O BSCRN #### [facility] [address] [place] [address] Dr. Ambrosio Ramirez MANUAL DIFF REQ NO Normal [facility] Comment on above: Performed By: #### O BSCRN #### [facility] [address] [place] [address] Dr. Ambrosio Ramirez MCH (RBC) [Entitic mass] 34.9 pg Critically high 26.7-34.[address] [facility] Comment on above: Performed By: #### O BSCRN #### [facility] [address] [place] [address] Dr. Ambrosio Ramirez MCHC (RBC) [Mass/Vol] 33.5 g/dL Normal 29.9-35.[address] [facility] Comment on above: Performed By: #### O BSCRN #### [facility] [address] [place] [address] Dr. Ambrosio Ramirez MCV (RBC) [Entitic vol] 104.1 fL Critically high 81.0-99.[address] [facility] Comment on above: Performed By: #### O BSCRN #### [facility] [address] [place] [address] Dr. Ambrosio Ramirez MONO # 0.4 103/ul Normal 0.3-0.[address] [facility] Comment on above: Performed By: #### O BSCRN #### [facility] [address] [place] [address] Dr. Ambrosio Ramirez Monocytes/100 WBC (Bld) 8.2 % Normal 1.7-12.[address] [facility] Comment on above: Performed By: #### O BSCRN #### [facility] [facility] [address] [place] [address] Dr. Ambrosio Ramirez NEUT # 2.1 103/ul Normal 1.4-6.[address] [facility] Comment on above: Performed By: #### O BSCRN #### [facility] [address] [place] [address] Dr. Ambrosio Ramirez Neutrophils/100 WBC (Bld) 41.5 % Critically low 43.0-75.[address] [facility] Comment on above: Performed By: #### O BSCRN #### [facility] [address] [place] [address] Dr. Ambrosio Ramirez Platelet mean volume (Bld) [Entitic vol] 9.3 fL Critically low 9.5-13.[address] [facility] Comment on above: Performed By: #### O BSCRN #### [facility] [address] [place] [address] Dr. Ambrosio Ramirez PLT 210 103/ul Normal 150-450 [facility] Comment on above: Performed By: #### O BSCRN #### [facility] [address] [place] [address] Dr. Ambrosio Ramirez RBC 4.67 106/ul Normal 4.20-5.40 [facility] Comment on above: Performed By: #### O BSCRN #### [facility] [address] [place] [address] Dr. Ambrosio Ramirez WBC 5.0 103/ul Normal 4.0-11.0 [facility] Comment on above: Performed By: #### O BSCRN #### [facility] [address] [place] [address] Dr. Ambrosio Ramirez FREE THYROXINE INDEX T7on FTI 2.72 Normal 1.30-4.[address] [facility] Comment on above: Performed By: #### O BSCRN #### [facility] [address] [address] [address] Ambrosio Ramirez T3U 32.0 % Normal 30.0-39.[address] [facility] Comment on above: Performed By: #### O BSCRN #### [facility] [address] [address] [address] Ambrosio Ramirez T4 [Mass/Vol] 8.50 ug/dL Normal 4.80-13.90 [facility] Comment on above: Performed By: #### O BSCRN #### [facility] [address] [address] [address] Ambrosio Ramirez GLYCOHEMOGLOBIN A1Con 2021 ADA RECOMMENDATION SEE BELOW Normal [facility] Comment on above: Result Comment: ADA RECOMMENDED LIMIT 4.0 - 6.0 ADA THERAPEUTIC TARGET < 7.0 ACTION SUGGESTED > 7.0 Performed By: #### A 1C #### [facility] [address] [address] [address] Ambrosio Ramirez Glucose [Mass/Vol] 108 mg/dL Normal [facility] Comment on above: Performed By: #### A 1C #### [facility] [address] [address] [address] Ambrosio Ramirez HbA1c (Bld) [Mass fraction] 5.4 % Normal 4.5-6.[address] [facility] Comment on above: Performed By: #### A 1C #### [facility] [address] [address] [address] Ambrosio Ramirez HIV 1/2 RAPID (EXPOSURE ONLY )on 08-22-2021 HIV AB Negative Normal [facility] Comment on above: Performed By: #### A 1C #### [facility] [address] [place] [address] Dr. Ambrosio Ramirez HIV AG Negative Normal [facility] Comment on above: Performed By: #### A 1C #### [facility] [address] [address] [address] Ambrosio Ramirez INTERNAL CONTROLS Within Normal Limits Normal Wi thin Normal Limits [facility] Comment on above: Performed By: #### A 1C #### [facility] [address] [place] [address] Dr. Ambrosio Ramirez RAPID HIV INFO SEE BELOW Normal [facility] Comment on above: Result Comment: This test is used for the initial screening of the exposure source. Confirmation of all results will be obtained through reference lab testing. Performed By: #### A 1C #### [facility] [address] [place] [address] Dr. Ambrosio Ramirez IRONon 08-22-2021 Iron [Mass/Vol] 137.0 ug/dL Normal 50.0-170.0 [facility] Comment on above: Performed By: #### I HAMLET #### [facility] [address] [place] [address] Dr. Ambrosio Ramirez LIPID PROFILEon 08-22-2021 CHOL-HDL RATIO NORM SEE BELOW Normal [facility] Comment on above: Result Comment: 3.3 - 4.4 LOW RISK 4.4 - 7.1 AVERAGE RISK 7.1 - 11.0 MODERATE RISK >11.0 HIGH RISK Performed By: #### O BSCRN #### [facility] [address] [place] [address] Dr. Ambrosio Ramirez Cholesterol [Mass/Vol] 251 mg/dL Critically high <=[address] [facility] Comment on above: Performed By: #### O BSCRN #### [facility] [address] [address] [address] Ambrosio Ramirez Cholesterol in HDL [Mass/Vol] 67 mg/dL Critically high 40-[address] [facility] Comment on above: Performed By: #### O BSCRN #### [facility] [address] [place] [address] Dr. Ambrosio Ramirez Cholesterol in LDL [Mass/Vol] 154.8 mg/dL Normal [facility] Comment on above: Performed By: #### O BSCRN #### [facility] [address] [place] [address] Dr. Ambrosio Ramirez Cholesterol.total/Cho lesterol in HDL [Mass ratio] 3.7 {ratio} Normal [facility] Comment on above: Performed By: #### O BSCRN #### [facility] [address] [address] [address] Ambrosio Ramirez HDL NORMAL > or = 60 mg/dl - LOW CARDIOVASCULAR RISK <40 mg/dl - HIGH CARDIOVASCULAR RISK Normal [facility] Comment on above: Performed By: #### O BSCRN #### [facility] [address] [address] [address] Ambrosio Ramirez LDL CALC NORMAL SEE BELOW Normal [facility] Comment on above: Result Comment: <100 mg/dl OPTIMAL 100 - 129 mg/dl NEAR OR ABOVE OPTIMAL 130 - 159 mg/dl BORDERLINE HIGH 160 - 189 mg/dl HIGH >190 mg/dl VERY HIGH Performed By: #### O BSCRN #### [facility] [address] [address] [address] Ambrosio Ramirez Triglyceride [Mass/Vol] 146 mg/dL Normal <=[address] [facility] Comment on above: Performed By: #### O BSCRN #### [facility] [address] [address] [address] Ambrosio Ramirez VLDL CALC 29.2 mg/dL Normal [facility] Comment on above: Performed By: #### O BSCRN #### [facility] [address] [address] [address] Ambrosio Ramirez PROF 14(COMP METB)on 022 Albumin [Mass/Vol] 4.3 g/dL Normal 3.4-5.0 [facility] Comment on above: Performed By: #### O BSCRN #### [facility] [address] [address] [address] Ambrosio Ramirez Albumin/Globulin [Mass ratio] 1.2 {ratio} Normal [facility] Comment on above: Performed By: #### O BSCRN #### [facility] [address] [address] [address] Ambrosio Ramirez ALP [Catalytic activity/Vol] 57 U/L Normal 46-[address] [facility] Comment on above: Performed By: #### O BSCRN #### [facility] [address] [address] [address] Ambrosio Ramirez ALT [Catalytic activity/Vol] 56 U/L Normal 14-[address] [facility] Comment on above: Performed By: #### O BSCRN #### [facility] [address] [address] [address] Ambrosio Ramirez Anion gap [Moles/Vol] 11.5 mmol/L Normal [facility] Comment on above: Performed By: #### O BSCRN #### [facility] [address] [address] [address] Ambrosio Ramirez AST [Catalytic activity/Vol] 75 U/L Critically high 15-[address] [facility] Comment on above: Performed By: #### O BSCRN #### [facility] [address] [place] [address] Dr. Ambrosio Ramirez Bilirubin [Mass/Vol] 0.4 mg/dL Normal 0.2-1.[address] [facility] Comment on above: Performed By: #### O BSCRN #### [facility] [address] [address] [address] Ambrosio Ramirez Calcium [Mass/Vol] 8.7 mg/dL Normal 8.5-10.1 [facility] Comment on above: Performed By: #### O BSCRN #### [facility] [address] [place] [address] Dr. Ambrosio Ramirez Chloride [Moles/Vol] 105 mmol/L Normal 98-[address] [facility] Comment on above: Performed By: #### O BSCRN #### [facility] [address] [address] [address] Ambrosio Ramirez CO2 [Moles/Vol] 30.3 mmol/L Normal 21.0-32.0 [facility] Comment on above: Performed By: #### O BSCRN #### [facility] [address] [place] [address] Dr. Ambrosio Ramirez Creatinine [Mass/Vol] 0.67 mg/dL Normal 0.55-1.[address] [facility] Comment on above: Performed By: #### O BSCRN #### [facility] [address] [address] [address] Ambrosio Ramirez EGFR-AF SAMOAN >60 Normal >=60 [facility] Comment on above: Performed By: #### O BSCRN #### [facility] [address] [address] [address] Ambrosio Ramirez EGFR-NON AF SAMOAN >60 Normal >=[address] [facility] Comment on above: Performed By: #### O BSCRN #### [facility] [address] [address] [address] Ambrosio Ramirez Globulin (S) [Mass/Vol] 3.7 g/dL Normal [facility] Comment on above: Performed By: #### O BSCRN #### [facility] [address] [place] [address] Dr. Ambrosio Ramirez Glucose [Mass/Vol] 93 mg/dL Normal 74-106 [facility] Comment on above: Performed By: #### O BSCRN #### [facility] [address] [place] [address] Dr. Ambrosio Ramirez Potassium [Moles/Vol] 4.8 mmol/L Normal 3.5-5.[address] [facility] Comment on above: Performed By: #### O BSCRN #### [facility] [address] [place] [address] Dr. Ambrosio Ramirez Protein [Mass/Vol] 8.0 g/dL Normal 6.4-8.2 [facility] Comment on above: Performed By: #### O BSCRN #### [facility] [address] [place] [address] Dr. Ambrosio Ramirez Sodium [Moles/Vol] 142 mmol/L Normal 136-145 [facility] Comment on above: Performed By: #### O BSCRN #### [facility] [address] [place] [address] Dr. Ambrosio Ramirez Urea nitrogen [Mass/Vol] 8.0 mg/dL Normal 7.0-18.[address] [facility] Comment on above: Performed By: #### O BSCRN #### [facility] [address] [address] [address] Ambrosio Ramirez Urea nitrogen/Creatinine [Mass ratio] 11.9 mg/mg Normal [facility] Comment on above: Performed By: #### O BSCRN #### [facility] [address] [address] [address] Ambrosio Ramirez TSHon 08-22-2021 TSH 2.117 uIU/mL Normal 0.358-3.740 [facility] Comment on above: Performed By: #### O BSCRN #### [facility] [address] [address] [address] Ambrosio Ramirez XR CSPINE MIN 4 [...] Cervical fusion hardware with no mechanical failure [id number] degenerative changes of the cervical thoracic spine Electronically authenticated by: GEORGE ROWE Date: 2021-08-22 21:[address] [facility] Vital Signs Date Time Vital Sign Value Performing Clinician Facility 05-09-2022 10:14-0400 Diastolic blood pressure 85 mm[Hg] [employer] Ama Edwards Work Phone: [facility] 05-09-2022 10:14-0400 Heart rate 99 /min [employer] Ama Edwards Work Phone: [facility] 05-09-2022 10:14-040 Respiratory rate 18 /min [employer]Fabricio Edwards Work Phone: [facility] 05-09-2022 10:14-0400 SaO2% (BldA) [Mass fraction] 99 % [employer]io Edwards Work Phone: [facility] 05-09-2022 10:14-0400 Systolic blood pressure 124 mm[Hg] [employer] Ama Edwards Work Phone: [facility] 05-09-2022 08:04-0400 Body height 180.34 cm [employer] Ama Edwards Work Phone: [facility] 05-09-2022 08:04-0400 Body weight 58.96 kg [employer] Ama Edwards Work Phone: [facility] 05-01-2022 11:15-0500 Body height Imad Asaad Other [facility] Other 05-01-2022 11:15-0500 Body mass index (BMI) [Ratio] 18.13 kg/m2 Imad Asaad Other [facility] Other 05-01-2022 11:15-0500 Body weight 58.97 kg Imad Asaad Other [facility] Other 05-01-2022 11:15-0500 Diastolic blood pressure 102 mm[Hg] Imad Asaad Other [facility] Other 05-01-2022 11:15-0500 Respiratory rate 16 /min Imad Asaad Other [facility] Other 05-01-2022 11:15-0500 Systolic blood pressure 158 mm[Hg] Imad Asaad Other [facility] Other Encounters Encounter Date Encounter Type Care Provider Facility Start: 12-28-2023 End: 12-28-2023 ambulatory Manuel Reynaga MD Facility:[facility] Start: 12-22-2023 End: 12-22-2023 ambulatory LEIGH CLARK Facility:[facility] Start: 12-22-2023 End: 12-22-2023 Patient encounter procedure [facility] CL[facility] Start: 12-14-2023 End: 12-14-2023 ambulatory Andkrishna Lugoitis Facility:[facility] Start: 11-23-2023 ambulatory LEIGH CLARK Facility :[facility] Start: 09-21-2023 End: 09-21-2023 ambulatory Andrius Caroleytautas Gieditis Facility:[facility] Start: 08-31-2023 End: 08-31-2023 ambulatory Andrius Caroleytautas Giedraitis Facility: [facility] Start: 08-17-2023 End: 08-17-2023 ambulatory Andrius Naila Lugoitis Facility: [facility] Start: 07-06-2023 End: 07-06-2023 ambulatory Andrius Caroleytdeepas Parishitis Facility: [facility] Start: 05-09-2022 End: 05-09-2022 ambulatory Ama Edwards Facility:[facility] Start: 05-09-2022 End: 05-09-2022 Admission to same day surgery center [employer] Ama Edwards Work Phone: [facility] Work Phone: Start: 05-09-2022 End: 05-09-2022 ambulatory [employer] Ama Edwards Work Phone: [facility] Work Phone: Start: 05-02-2022 End: 05-02-2022 ambulatory Imad Asaad Other [facility] Other Start: 05-02-2022 Telephone encounter Imad Asaad [facility] Start: 05-01-2022 End: 05-01-2022 ambulatory Imad Asaad Other [facility] Other Start: 05-01-2022 Office consultation new/estab patient 60 min Imad Manny [facility] Start: 03-25-2022 End: 03-26-2022 ambulatory AMA EDWARDS Facility:[facility] Start: 03-12-2022 End: 03-13-2022 ambulatory AMA EDWARDS Facility:[facility] Start: 01-27-2022 End: 01-28-[address] GEORGE ROWE Facility:[facility] Start: 09-12-2021 ambulatory AMA EWDARDS Facility: [facility] Start: 08-23-2021 End: 08-23-2021 ambulatory AMA EDWARDS Facility:[facility] Start: 08-23-2021 End: 08-23-2021 ambulatory LOLIS BOB Facility:[facility] Start: 08-22-2021 End: 08-23-2021 ambulatory AMA EDWARDS Facility:[facility] Procedures Date Procedure Procedure Detail Performing Clinician Start: 05-09-2022 Esophagogastroduodenoscopy [employer] Ama patel Work Phone: Screening for malign ant neoplasm of colon Imad Asaad Other Plan of Treatment Date Care Activity Detail Author Start: 05-09-2022 [facility] Patient Education Colon Polyps H emorrhoids (DC) Diverticulosis (DC) Gastritis (DC) [facility] Work Phone: Payers Date Payer Category Payer Self-pay 2022 Unknown 1960 Unknown [id number] 2.16.84 [id number] 1960 Unknown [id number] 2.16.84 [id number] 1960 Unknown [id number] 2.16.84 [id number] 1962 Unknown [id number] 2.16.84 [id number] 1962 Unknown [id number] 2.16.84 [id number] 1962 Unknown [id number] 2.16.84 [id number] 1962 Unknown [id number] 2.16.84 [id number] 1962 Unknown [id number] 2.16. [id number] 1962 Unknown [id number] 2.16. [id number] 1962 Unknown [id number] 2.16. [id number] 1962 Unknown [id number] 2.16. [id number] 1962 Unknown [id number] 2.16. [id number] 1962 Unknown [id number] 2.16. [id number] 1957 Medicare [id number] 1959 Unknown [id number] 1959 Unknown [id number] 1959 Unknown [id number] Unknown [id number] 2.16.8 [id number] Social History Date Type Detail Facility Start: 05-09-2022 [facility] Start: 1960 Sex Assigned At Female F [facility] Sex Assigned At [facility] Tobacco smoking status No Smokin g Status Entered [facility] [employer] Goals Date Patient Goal Desired Activity /State Procedure note 05-09-2022 Note Date & Type Note Facility 05-09-2022 Procedure note [facility] Evaluation note 05-01-2022 Note Date & Type Note Facility 05-01-2022 Evaluation note Encounter Date Diagnosis Assessment Notes Apr, Dysphagia (ICD-10 - R13.10) Apr, Weight loss (ICD-10 - R63.4) Apr, Colon cancer screening (ICD-10 - Z12.11) [facility] Other Evaluation + Plan note Note Date & Type Note Facility Evaluation + Plan note No data available for this section [facility] Evaluation note Note Date & Type Note Facility Evaluation note No assessment information [facility] Work Phone: Evaluation note Note Date & Type Note Facility Evaluation note No Information [employer] Other History general Narrative - Reported Note Date & Type Note Facility History general Narrative - Reported Type Medical History Anxiety/Depression Surgical History Neck surgery Surgical History Tonsillectomy Hospitalization History See above [facility] Other Hospital Discharge instructions Note Date & [...] NOT operate machinery such as power tools, mxHeron mowers, snow blowers, sewing machines, etc. for [...] NOT operate machinery such as power tools, mx[employer]on mowers, snow blowers, sewing machines, etc. for [...] -Follow up with PCP. - Office number [phone]. [facility] Work Phone: Hospital Discharge instructions Note Date & Type Note Facility Hospital Discharge instructions No data available for this section [facility] Progress note Note Date & Type Note Facility Progress note No data available for this section [facility] Chief Complaint and Reason for Visit [...] section and content) DATE CREATED AUTHOR 05/20/2022 [facility] DATE CREATED AUTHOR AUTHOR'S ORGANIZ ATION 07/02/2022 [facility] DATE CREATED AUTHOR AUTHOR'S ORGANIZ ATION 12/24/2023 [facility] DATE CREATED AUTHOR AUTHOR'S ORGANIZ ATION 01/02/2024 [facility] FOR RECORDS PERTAINING TO PATIENTS WHO [...] BE BASED ON THE PRIMARY CLINICAL RECORDS. [facility]. provides no warranty or guarantee of the accuracy or completeness of information in this document.
--- NOTE | 2024-01-06 09:54 | P.CN_ITS ---
Consult Note: HPI Data of Consult Patient: known to practice within the last 3 years Consult date: 12/14/23 Requesting Physician: Angle Brownlee NP Primary Care Provider: SOLITARIO EDWARDS Consult Narrative Reason for consult: neck, bilateral arm pain Narrative: 63yof who presents for assessment. continues to have neck and bilateral arm pain. fused from c4-7. recently saw spine surgeon, who did not recommend surgery at this time. imaging significant for cervical spondylosis and stenosis at c3-4. continues in provider directed home exercise course >6 weeks, without lasting benefit. denies adverse med side effects. Recent bilateral C3-4 TFESI providing 50% improvement ongoing cc:: CC: Angle Brownlee NP Review of Systems ROS Status of ROS 10 or more systems reviewed and unremark able except as noted in history and below Musculoskeletal Reports: neck pain PFSH PFSH Medical History Dyspnea on exertion ?R06.09 - Other forms of dyspnea (ICD-10) Colon polyp ?K63.5 - Polyp of colon (ICD-10) Fibromyalgia ?M79.7 - Fibromyalgia (ICD-10) Back pain ?M54.9 - Dorsalgia, unspecified (ICD-10) Arthritis ?M19.90 - Unspecified osteoarthritis, unspecified site (ICD-10) Claustrophobia ?F40.240 - Claustrophobia (ICD-10) Insomnia ?G47.00 - Insomnia, unspecified (ICD-10) Heartburn ?R12 - Heartburn (ICD-10) Diverticulitis ?K57.92 - Diverticulitis of intestine, part unspecified, without perforation or abscess without bleeding (ICD-10) Degeneration of lumbosacral intervertebral disc ?M51.37 - Other intervertebral disc degeneration, lumbosacral region (ICD-10) Spondylolisthesis, lumbar region ?M43.16 - Spondylolisthesis, lumbar region (ICD-10) Cervical disc displacement ?M50.20 - Other cervical disc displacement, unspecified cervical region (ICD- 10) Spinal stenosis, cervical region ?M48.02 - Spinal stenosis, cervical region (ICD-10) Other cervical disc degeneration, high cervical region ?M50.31 - Other cervical disc degeneration, high cervical region (ICD-10) Anxiety ?F41.9 - Anxiety disorder, unspecified (ICD-10) Depression ?F32.A - Depression, unspecified (ICD-10) Bronchitis ?J40 - Bronchitis, not specified as acute or chronic (ICD-10) HTN (hypertension) ?I10 - Essential (primary) hypertension (ICD-10) Intervertebral disc degeneration Myofascial pain ?M79.18 - Myalgia, other site (ICD-10) Lumbar stenosis with neurogenic claudication ?M48.062 - Spinal stenosis, lumbar region with neurogenic claudication (ICD- 10) Chronic use of benzodiazepine for therapeutic purpose ?Z79.899 - Other half-way (current) drug therapy (ICD-10) Greater trochanteric bursitis of both hips ?M70.61 - Trochanteric bursitis, right hip (ICD-10) ?M70.62 - Trochanteric bursitis, left hip (ICD-10) Muscle spasm ?M62.838 - Other muscle spasm (ICD-10) Cervical postlaminectomy syndrome ?M96.1 - Postlaminectomy syndrome, not elsewhere classified (ICD-10) Cervical spondylosis ?M47.812 - Spondylosis without myelopathy or radiculopathy, cervical region (ICD-10) Upper back pain ?M54.9 - Dorsalgia, unspecified (ICD-10) Neck pain ?M54.2 - Cervicalgia (ICD-10) Smoker ?F17.200 - Nicotine dependence, unspecified, uncomplicated (ICD-10) Surgical History H/O lumbosacral spine surgery ?Z98.890 - Other specified postprocedural states (ICD-10) History of colonoscopy ?Z98.890 - Other specified postprocedural states (ICD-10) S/P epidural steroid injection ?Z92.241 - Personal history of systemic steroid therapy (ICD-10) History of tonsillectomy ?Z90.89 - Acquired absence of other organs (ICD-10) H/O cervical spine surgery ?Z98.890 - Other specified postprocedural states (ICD-10) Family History Other Family history of breast cancer Social History Within the past year, how often did you have a drink containing alcohol: 2-4 times a month Smoking status: Current every day smoker What tobacco products do you use: cigarettes Packs per day: 1 Years smoked: 45 Smoking pack-years: 45.00 Highest level of school completed/degree received: 9th grade Meds Home Medications and Allergies Home Medications ?Medication ?Instructions ?Recorded ?Confirmed ?Type omeprazole 40 mg capsule,delayed 40 mg PO DAILY 08/31/23 12/28/23 History release albuterol sulfate 90 mcg/actuation 2 inh inhalation Q6H PRN shortness 09/25/23 12/28/23 History aerosol inhaler of breath or wheezing trazodone 50 mg tablet 50 mg PO QPM PRN sleep 09/25/23 12/28/23 History orphenadrine citrate 100 mg 100 mg PO BID PRN Muscle spasms 30 10/11/23 12/28/23 Rx tablet,extended release days #60 tabs tramadol 50 mg tablet 50 mg PO Q4H PRN pain 12/14/23 12/28/23 History acetaminophen 650 mg 650 mg PO Q12H PRN pain 12/28/23 12/28/23 History tablet,extended release Allergies Allergy/AdvReac Type Severity Reaction Status Date / Time No Known Drug Allergies Allergy Verified 12/28/23 09:14 Exam Narrative Exam Narrative: Psych-alert and oriented x 3.? Attentive and appropriate, constitutionally normal, displays normal mood and affect per situation.? There are no obvious deficits in memory, reasoning, or intellect.? Skin-no obvious rashes, bruising, or erythema noted to the patient's area of pain.? Extremities-upper extremities are warm with minimal edema and palpable pulses. Cervical- tenderness to palpation noted in the cervical spine and paraspinal musculature. trigger points noted left>right splenius capitus and trapezius ? Pain is elicited with flexion, extension, and lateral rotation of the cervical spine.? Range of motion is diminished due to pain. Facet loading maneuvers are negative.? Strength-unremarkable and within normal limits with the exception to the bilateral biceps. Sensory-no notable sensory deficits in the bilateral upper extremities to touch or pinprick Coordination remains intact.? Gait remains non-antalgic. Assessment and Plan Assessment and Plan (1) Cervical radiculopathy: Assessment and Plan: bilateral C3-4 TFESI providing 50% improvement ongoing (2) Failed neck syndrome: (3) Cervical spondylosis: (4) Myalgia, other site: Assessment and Plan: return to office for bilateral splenius capitus and trapezius TPI with Dr Reynaga left side >right (5) Chronic use of opiate for therapeutic purpose: Assessment and Plan: tramadol 50mg BID PRN providing mild relief per pt, denies side effects Plan DC tramadol 50mg BID PRN, start tramadol 100mg ER daily prn moderate to severe pain. risks vs benefits reviewed narcan script updated today continue HEP as tolerated f/u for TPI with Dr Reynaga
== END 2024-01-06 09:27 | disposition home or self-care (01) ==
PROVIDERS: PCP Nurse Practitioner Family; Visit Provider Nurse Practitioner
DX: M54.12 Radiculopathy, cervical region (principal); M47.812 Spondylosis without myelopathy or radiculopathy, cervical region; M79.18 Myalgia, other site; Z79.891 Long term (current) use of opiate analgesic; M96.1 Postlaminectomy syndrome, not elsewhere classified
CPT/HCPCS: G0463

== ENCOUNTER 2024-02-02 11:44 | Day surgery (SDC) | payer MEDICARE, OTHER, MEDICAID, SELFPAY ==
--- NOTE | 2024-02-02 11:48 | MM_ITS ---
Patient Name: CARLA ABDI MR#: [id number] : 1960 Exam Date: 02/02/2024 Ordering Doctor: SOLITAIRO EDWARDS CNP RADIOLOGY REPORT PROCEDURE: MM POST BIOPSY RT COMPARISON: MM STEREOTACTIC LOC RT, 02/02/2024. MM DIAGNOSTIC MAMMO UNILAT RT, 12/09/2023. MM SCREENING MAMMO BI, 11/26/2023. INDICATIONS: Abnormal Mammogram, Calcifications BREAST COMPOSITION: FINDINGS: Post-Procedure Mammogram for Marker Placement BIOPSY MARKER: A metallic marker has been placed in the targeted location within the upper-outer quadrant of the right breast. BREAST FINDINGS: Expected post biopsy findings. RECOMMENDATIONS: Dictated by: Jose Matos M.D. on 02/02/2024 at 15:57 Approved by: Jose Matos M.D. on 02/02/2024 at 15:58
--- NOTE | 2024-02-02 11:48 | MM_ITS ---
Patient Name: CARLA ABDI MR#: [id number] : 1960 Exam Date: 02/02/2024 Ordering Doctor: SOLITARIO EDWARDS CNP RADIOLOGY REPORT PROCEDURE: MM STEREOTACTIC LOC RT COMPARISON: MM DIAGNOSTIC MAMMO UNILAT RT, 12/09/2023. MM SCREENING MAMMO BI, 11/26/2023. INDICATIONS: Abnormal Mammogram, Calcifications DESCRIPTION: Following informed consent, digital stereotactic mammographic views were obtained to localize the lesion. Multiple vacuum-assisted core biopsies were obtained. Specimen images were obtained to confirm proper sampling. The location of the biopsy was then marked as indicated below. FINDINGS: RECOMMENDATIONS: SPECIMEN #, LOCATION: 5 core samples; posterior upper-outer quadrant of right breast. SPECIMEN IMAGE: Calcifications within several cores. BIOPSY NEEDLE: 10 gauge Revolve(r) vacuum core biopsy needle. MARKER(S) PLACED: A single metallic marker was placed in the appropriate targeted location. MEDICATION: Buffered 1% lidocaine superficial;1% lidocaine with epinephrine deep. COMPLICATIONS: None. PATHOLOGY / LAB: Pending. CONCLUSION: 1. Technically successful biopsy of the upper-outer quadrant of the right breast where there are innumerable loosely distributed calcifications. 2. Pathology results are pending. An addendum will be added when pathology results are final. Dictated by: Jose Matos M.D. on 02/02/2024 at 16:13 Approved by: Jose Matos M.D. on 02/02/2024 at 16:15
[2024-02-02 12:20] VITALS: BP 111/88; PULSE 81; O2SAT 96
[2024-02-02] MEDS: 0.9 % SODIUM CHLORIDE 250 ML IRR (13:00)
[2024-02-02] MEDS: LIDOCAINE HCL 10 ML, SODIUM BICARBONATE 1 MEQ INJ (13:00)
[2024-02-02] MEDS: LIDOCAINE HCL/EPINEPHRINE 10 ML, SODIUM BICARBONATE 1 MEQ INJ (13:00)
--- NOTE | 2024-02-02 14:21 | SUR.PREOP ---
01/12/24 After multiple phone calls and messages left pt was scheduled for biopsy. Reviewed procedure, date, time, and prep. Pt states that she will take her Valium prior to biopsy at noon. Pt instructed to have a dray driver available to take her home after biopsy.
== END 2024-02-02 13:35 | disposition home or self-care (01) ==
LOC: MAMMO 11:44
PROVIDERS: Radiology Diagnostic Radiology; PCP Nurse Practitioner Family; Visit Provider Nurse Practitioner Family
DX: R92.1 Mammographic calcification found on diagnostic imaging of breast (principal); N60.21 Fibroadenosis of right breast; R92.0 Mammographic microcalcification found on diagnostic imaging of breast
CPT/HCPCS: 19081; 77065; 88305

== ENCOUNTER 2024-02-08 13:51 | Outpatient (OUT) | payer MEDICARE, OTHER, MEDICAID, SELFPAY ==
--- NOTE | 2024-02-08 14:34 | PM.CN ---
Consult Note: HPI Data of Consult Patient: known to practice within the last 3 years Consult date: 02/08/24 Requesting Physician: Manuel Reynaga MD Primary Care Provider: SOLITARIO EDWARDS Consult Narrative Reason for consult: neck pain Narrative: 63yof who presents for in office injection. continues to have neck pain, so would like to proceed with trigger point injections. cc:: CC: Manuel Reynaga MD Review of Systems ROS Status of ROS 10 or more systems reviewed and unremarkable except as noted in history and below PFSH PFSH Medical History History of needle biopsy ?Z98.890 - Other specified postprocedural states (ICD-10) Dyspnea on exertion ?R06.09 - Other forms of dyspnea (ICD-10) Colon polyp ?K63.5 - Polyp of colon (ICD-10) Fibromyalgia ?M79.7 - Fibromyalgia (ICD-10) Back pain ?M54.9 - Dorsalgia, unspecified (ICD-10) Arthritis ?M19.90 - Unspecified osteoarthritis, unspecified site (ICD-10) Claustrophobia ?F40.240 - Claustrophobia (ICD-10) Insomnia ?G47.00 - Insomnia, unspecified (ICD-10) Heartburn ?R12 - Heartburn (ICD-10) Diverticulitis ?K57.92 - Diverticulitis of intestine, part unspecified, without perforation or abscess without bleeding (ICD-10) Degeneration of lumbosacral intervertebral disc ?M51.37 - Other intervertebral disc degeneration, lumbosacral region (ICD-10) Spondylolisthesis, lumbar region ?M43.16 - Spondylolisthesis, lumbar region (ICD-10) Cervical disc displacement ?M50.20 - Other cervical disc displacement, unspecified cervical region (ICD-10) Spinal stenosis, cervical region ?M48.02 - Spinal stenosis, cervical region (ICD-10) Other cervical disc degeneration, high cervical region ?M50.31 - Other cervical disc degeneration, high cervical region (ICD-10) Anxiety ?F41.9 - Anxiety disorder, unspecified (ICD-10) Depression ?F32.A - Depression, unspecified (ICD-10) Bronchitis ?J40 - Bronchitis, not specified as acute or chronic (ICD-10) HTN (hypertension) ?I10 - Essential (primary) hypertension (ICD-10) Intervertebral disc degeneration Myofascial pain ?M79.18 - Myalgia, other site (ICD-10) Lumbar stenosis with neurogenic claudication ?M48.062 - Spinal stenosis, lumbar region with neurogenic claudication (ICD-10) Chronic use of benzodiazepine for therapeutic purpose ?Z79.899 - 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 therapy (ICD-10) Greater trochanteric bursitis of both hips ?M70.61 - Trochanteric bursitis, right hip (ICD-10) ?M70.62 - Trochanteric bursitis, left hip (ICD-10) Muscle spasm ?M62.838 - Other muscle spasm (ICD-10) Cervical postlaminectomy syndrome ?M96.1 - Postlaminectomy syndrome, not elsewhere classified (ICD-10) Cervical spondylosis ?M47.812 - Spondylosis without myelopathy or radiculopathy, cervical region (ICD-10) Upper back pain ?M54.9 - Dorsalgia, unspecified (ICD-10) Neck pain ?M54.2 - Cervicalgia (ICD-10) Smoker ?F17.200 - Nicotine dependence, unspecified, uncomplicated (ICD-10) Surgical History H/O lumbosacral spine surgery ?Z98.890 - Other specified postprocedural states (ICD-10) History of colonoscopy ?Z98.890 - Other specified postprocedural states (ICD-10) S/P epidural steroid injection ?Z92.241 - Personal history of systemic steroid therapy (ICD-10) History of tonsillectomy ?Z90.89 - Acquired absence of other organs (ICD-10) H/O cervical spine surgery ?Z98.890 - Other specified postprocedural states (ICD-10) Family History Other Family history of breast cancer Social History Within the past year, how often did you have a drink containing alcohol: 2-4 times a month Smoking status: Current every day smoker What tobacco products do you use: cigarettes Packs per day: 1 Years smoked: 45 Smoking pack-years: 45.00 Highest level of school completed/degree received: 9th grade Meds Home Medications and Allergies Home Medications ?Medication ?Instructions ?Recorded ?Confirmed ?Type omeprazole 40 mg capsule,delayed 40 mg PO DAILY 08/31/23 02/02/24 History release albuterol sulfate 90 mcg/actuation 2 inh inhalation Q6H PRN shortness 09/25/23 12/28/23 History aerosol inhaler of breath or wheezing trazodone 50 mg tablet 50 mg PO QPM PRN sleep 09/25/23 01/12/24 History orphenadrine citrate 100 mg 100 mg PO BID PRN Muscle spasms 30 10/11/23 01/12/24 Rx tablet,extended release days #60 tabs tramadol 50 mg tablet 50 mg PO Q4H PRN pain 12/14/23 01/12/24 History acetaminophen 650 mg 650 mg PO Q12H PRN pain 12/28/23 12/28/23 History tablet,extended release naloxone 4 mg/actuation nasal 4 mg intranasal Q2M PRN opioid 01/06/24 Rx spray (Narcan) overdose #1 ea diazepam 5 mg tablet 5 mg PO DAILY 01/12/24 02/02/24 History tiotropium bromide 2.5 2 inh inhalation DAILY 01/12/24 02/02/24 History mcg/actuation mist for inhalation (Spiriva Respimat) tramadol 100 mg capsule 100 mg PO DAILY PRN pain #30 caps 02/02/24 Rx 24h,extended release(25-75) tramadol 50 mg tablet See Rx Instructions .Route 02/03/24 Rx .COMPLEX PRN pain #95 tabs Allergies Allergy/AdvReac Type Severity Reaction Status Date / Time No Known Drug Allergies Allergy Verified 02/02/24 14:18 Exam Narrative Exam Narrative: Psych-alert and oriented x 3.? Attentive and appropriate, constitutionally normal, displays normal mood and affect per situation.? There are no obvious deficits in memory, reasoning, or intellect.? Skin-no obvious rashes, bruising, or erythema noted to the patient's area of pain. Extremities-upper extremities are warm with minimal edema and palpable pulses. Cervical- tenderness to palpation noted in the cervical spine and paraspinal musculature.?Multiple trigger points expressed on palpation. Pain is elicited with extension, and lateral rotation of the cervical spine.? Range of motion is slightly diminished due to pain. Facet loading maneuvers are positive bilaterally.? Coordination remains intact.? Gait remains non-antalgic. Assessment and Plan Assessment and Plan (1) Myalgia, other site: Plan 63yof who presents for in office injection. continues to have neck pain, will proceed with trigger point injections. Procedure: Bilateral splenius capitis, trapezius trigger point injections Medications: Bupivacaine 0.25% 4cc, kenalog 40mg I explained the details of the procedure to the patient including the risks, benefits, and alternatives.? We had an informed discussion.? The patient verbalized understanding and signed the consent form.? All questions were answered appropriately.? A time-out was performed.? After obtaining a comfortable seated position, the skin overlying the bilateral cervical region was prepped with alcohol 3 times. The needle was inserted in a sterile manner through the skin towards the palpated trigger point areas. The contents of the syringe were gently injected without any resistance 1cc at a time into the appropriate trigger point.? The needle was removed and pressure was applied at the injection site to decrease the incidence of ecchymosis and hematoma formation.? A sterile bandage was applied. The patient tolerated the procedure well.
== END 2024-02-08 13:52 | disposition home or self-care (01) ==
LOC: PM 13:51
PROVIDERS: PCP Nurse Practitioner Family; Visit Provider Anesthesiology
DX: M79.10 Myalgia, unspecified site (principal)
CPT/HCPCS: 20553; J0665; J3301

== ENCOUNTER 2024-02-11 12:51 | Outpatient (RCR) | payer MEDICARE, OTHER, MEDICAID, SELFPAY | END 2024-02-23 14:44 | disposition home or self-care (01) | LOC: PT 12:51 | PROVIDERS: PCP Nurse Practitioner Family; Visit Provider Orthopaedic Surgery Orthopaedic Surgery of the Spine | DX: M54.2 Cervicalgia (principal); Z47.89 Encounter for other orthopedic aftercare | CPT/HCPCS: 97163 ==

== ENCOUNTER 2024-02-24 10:55 | Outpatient (RCR) | payer MEDICARE, OTHER, MEDICAID, SELFPAY | END 2024-03-24 08:06 | disposition home or self-care (01) | LOC: PT 10:55 | PROVIDERS: PCP Nurse Practitioner Family; Visit Provider Orthopaedic Surgery Orthopaedic Surgery of the Spine | DX: Z47.89 Encounter for other orthopedic aftercare (principal); M54.2 Cervicalgia | CPT/HCPCS: 20560; 97010; 97014; 97110; 97140 ==

== ENCOUNTER 2024-03-21 12:45 | Outpatient (OUT) | payer MEDICARE, OTHER, MEDICAID, SELFPAY ==
--- OUTSIDE RECORDS SUMMARY | 2024-03-21 13:01 | XMS_ITS | CCD ---
Author Organization [facility] Care Team Providers Care Junior Media Buyer Name Role Phone MD Nesha Bryant Attending Provider JIE Edwards Primary Care Provider Nesha Bryant Unavailable AMA EDAWRDS Attending Unavailable AMA EDWARDS Consulting Unavailable JERRY, AMA Primary Care Unavailable JERRY, AMA Admitting Unavailable JERRY, AMA Attending Unavailable JERRY, AMA Primary Care Unavailable JERRY AMA Admitting Unavailable PAULINOLOLIS Admitting Unavailable LOLIS BOB Attending Unavailable LOLIS BOB Consulting Unavailable JERRY, AMA Primary Care Unavailable SOLEDAD, DR GEORGE Lam Consulting Unavailable JERRY, AMA Attending Unavailable JERRY, AMA Primary Care Unavailable JERRY, AMA Admitting Unavailable JERRY, AMA Consulting Unavailable JERRY, AMA Admitting Unavailable ZIEBER, DR JOSE Franz Consulting Unavailable JERRY, AMA Attending Unavailable JERRY, AMA Primary Care Unavailable JERRY, AMA Consulting Unavailable JERRY, AMA Admitting Unavailable JERRY, AMA Attending Unavailable ZIEBSAUL, DR JOSE Franz Consulting Unavailable JERRY, AMA Primary Care Unavailable JERRY, AMA Consulting Unavailable George Catalan Unavailable JERRY, AMA Primary Care Unavailable JERRY, AMA Attending Unavailable JERRY, AMA Primary Care Unavailable SOLEDAD, DR GEORGE Lam Consulting Unavailable JERRY, AMA Admitting Unavailable JERRY, AMA Consulting Unavailable Thompson Diane Primary Care Physician AMA EDWARDS Primary Care Physician LEIGH CLARK Attending Unavailable Thompson Diane Referring Unavailable LEIGH CLARK Attending Unavailable LEIGH CLARK Attending Unavailable LEIGH CLARK Admitting Unavailable LEIGH CLARK Attending Unavailable LEIGH CLARK Admitting Unavailable Ama Edwards Attending Unavailable Ama Edwards Primary Care Unavailable Ama Edwards Admitting Unavailable Giedraitis , Manuel Yoo Attending Unavailable Giedraitis , Manuel Yoo Attending Unavailable Giedraitis , Manuel Yoo Attending Unavailable Giedraitis , Andkrishna Yoo Attending Unavailable Giedraitis , Andkrishna Yoo Attending Unavailable Giedraitis , Manuel Yoo Attending Unavailable Giedraitis , Manuel Yoo Attending Unavailable Allergies Allergy Classification Reported Allergen(s) Allergy Type Date of Onset Reaction(s) Facility (2 sources) No Known Medication Allergies; Translations: [No Known Medication Allergies] Propensity to adverse reactions (disorder) [facility] Repository Medications Current Medications Medication Drug Class(es) Dates Sig (Normalized) Sig (Original) ALPRAZolam 0.25 mg oral tablet (3 sources) Benzodiazepine Start: 05-09-2022 take 0.25 mg by mouth once daily Alprazolam Active 0.25 MG PO Daily May 09, 2022 12:00am ALPRAZolam Activ e busPIRone hydrochloride 10 mg oral tablet (1 source) Start: 05-09-2022 Buspirone Acti ve 10 MG PO As Directed May 09, 2022 12:00am hydrOXYzine hydrochloride 10 mg oral tablet (2 sources) Antihistamine hydrOXYzine HCl 10 MG as directed Orally Active omeprazole 40 mg delayed release oral capsule (4 sources) Proton Pump Inhibitor Start: 01-12-2024 omeprazo le 40 mg Cap-DR 40 mg = 1 cap(s) Start Date: 01/12/24 Status: Ordered Start: 05-12-2022 take 1 capsule by [facility] once daily Omeprazole 40 MG 1 capsule 30 minutes before morning meal Orally Once a day for 30 days Apr, Active 12 hr orphenadrine citrate 100 mg extended release oral tablet (2 sources) Muscle Relaxant Start: 01-12-2024 orphenadrine 1 00 mg ER Tab 100 mg = 1 tab(s) Start Date: 01/12/24 Status: Ordered polyethylene glycol 3350 361311 mg / potassium chloride 2970 mg / sodium bicarbonate 6740 mg / sodium chloride 5860 mg / sodium sulfate 21182 mg powder for oral solution (2 sources) Osmotic Laxative Start: 05-01-2022 PEG-3350/Elec trolyte s 236 GM as directed Orally once daily for 1 days Apr, Active 60 actuat tiotropium 0.0025 mg/actuat inhalation spray (2 sources) Anticholinergic Start: 01-12-2024 Spiriva Respim at 60 ACT 2.5 mcg/inh inhalation aerosol = 2 inh Start Date: 01/12/24 Status: Ordered traMADol hydrochloride 50 mg oral tablet (2 sources) Opioid Agonist Start: 01-12-2024 traMADOL 50 mg Tab 50 mg = 1 tab(s) Start Date: 01/12/24 Status: Ordered traZODone hydrochloride 50 mg oral tablet (2 sources) Serotonin Reuptake Inhibitor Start: 01-12-2024 traZODONE 50 mg Tab 50 mg = 1 tab(s) Start Date: 01/12/24 Status: Ordered Problems Active Problems Problem Classification Problem Date Documented Da te Episodic/Chronic Anxiety disorders (3 sources) Anxiety disorder 12-16-2023 Chronic Chronic obstructive pulmonary disease and bronchiectasis (3 sources) Chronic obstructive lung disease 12-16-2023 Chronic Disorders of lipid metabolism (4 sources) Hyperlipidemia, unspecified; Translations: [Hyperlipidemia] Onset: 3 12-16-2023 Chronic Esophageal disorders (3 sources) Gastroesophageal reflux disease without esophagitis 12-16-2023 Chronic Genitourinary symptoms and ill-defined conditions (2 sources) Retention of urine; Translations: [Microscopic hematuria] Onset: 4 12-16-2023 Episodic Osteoarthritis (3 sources) Osteoarthritis 12-16-2023 Chronic Other diseases of bladder and urethra (1 source) Detrusor overactivity; Translations: [Overactive bladder] Onset: Chronic Other diseases of bladder and urethra (2 sources) Overactive bladder 01-12-2024 Chronic Other gastrointestinal disorders (2 sources) Diarrhea; Translations: [Diarrhea, unspecified] Episodic Other gastrointestinal disorders (2 sources) Dysphagia; Translations: [Dysphagia, unspecified] Episodic Other nutritional; endocrine; and metabolic disorders (2 sources) Weight loss; Translations: [Abnormal weight loss] Episodic Residual codes; unclassified (3 sources) Insomnia 12-16-2023 Episodic Residual codes; unclassified (2 sources) Tobacco user 01-12-2024 Episodic Spondylosis; intervertebral disc disorders; other back problems (4 sources) Other cervical disc degeneration, unspecified cervical region; Translations: [Degeneration of lumbar intervertebral disc] Onset: 2 12-16-2023 Chronic Spondylosis; intervertebral disc disorders; other back problems (8 sources) Cervicalgia; Translations: [Pain in thoracic spine] Onset: 2 12-16-2023 Episodic Substance-related disorders (8 sources) Nicotine dependence, unspecified, uncomplicated; Translations: [Nicotine dependence] Onset: 2 Chronic Unclassified (3 sources) CONTACT W/AND (SUSP) EXPOS COVID-19; Translations: [CONTACT W/AND (SUSP) EXPOS COVID-19] Onset: 2 Unclassified (1 source) COUGH, UNSPECIFIED; Translations: [COUGH, UNSPECIFIED] Onset: 2 Unclassified (2 sources) Asymptomatic microscopic hematuria 01-12-2024 Past or Other Problems Problem Classification Problem [...] Test Name Value Interpretation Reference Range Facility [facility] 02-02-2024 L --- Specimen: [id number] Received: 02/03/24 Status: EDUARD Zaragoza Num: [id number] Spec Type: Surgical Subm Dr: Jose Matos MD Tissues: A Breast Core CALCIFICATIONS (RIGHT BREAST MICRO CALCIFICA) Procedures: RSOI/Sanya Ibrahim/Lindsay L4 Age/ Patient Sex Location Account Attending Physician Nancy Joyce 63/F LABELL [id number] Ama Edwards CNP SPEC NUM: [id number] RECD: 02/03/24 STATUS: EDUARD ZARAGOZA NUM: [id number] KATY: 02/02/[address]: Jose Matos MD ENTERED: 02/03/[address] [facility] [address]: Keyur,Lab Ama Edwards, RUNNING INSTRUCTOR SPEC TYPE: Surgical DEPT: RAMYA LOWE ENTERED BY: [id number] RECV BY: [id number] ORDERED: HE/6, Gross/Micro L4 ORDERED: HE/6, Gross/Micro L4 Pathological Diagnosis Right breast, upper outer quadrant, calcification, stereotactic core biopsy: - Fibrocystic change characterize by duct ectasia, adenosis and stromal fibrosis with associated microcalcifications. - No evidence of malignancy identified. Clinical Information Right breast microcalcifications Gross Description Received in formalin labeled with the patients name, date of , and right breast upper outer quadrant microcalcifications are 6 pale blevins to yellow roblero, delicate needle core biopsy segments, 1.1 to 3 cm in length with detached fragments of fibrofatty tissue, 1.2 x 0.6 x 0.2 cm in aggregate. The cores are entirely submitted in Cassette A1?A2 with the fragmented fibrofatty tissue filtered, and entirely submitted in Cassette A3. Fixation time: Time tissue removed from patient: 1303 Time specimen placed in formalin: 1315 Cold ischemic time: 12 minutes Total fixation time: 28 hours and 30 minutes (3, ns, [id number] A) GLENN Specimen: [id number] Received: 02/03/24 Status: EDUARD Nik Num: [id number] Spec Type: Surgical Subm Dr: Jose Maots MD Tissues: A Breast Core CALCIFICATIONS (RIGHT BREAST MICRO CALCIFICA) Procedures: HE/6, Gross/Micro L4 Patient: Nancy Joyce [id number] (Continued) Specimen: [id number] Received: 02/03/24 (Continued) Signed (signature on file) Glenn Rogel MD 02/04/24 1105 Specimen: [id number] Received: 02/03/24 Status: EDUARD Zaragoza Num: [id number] Spec Type: Surgical Subm Dr: Jose Matos MD Tissues: A Breast Core CALCIFICATIONS (RIGHT BREAST MICRO CALCIFICA) Procedures: HE/6, Sanya/Lindsay L4 Patient: Nancy Joyce Nuria [id number] (Continued) Specimen: [id number] Received: 02/03/24 (Continued) Microscopic Description Microscopic examination is performed. CPT Codes 02451 Specimen: [id number] Received: 02/03/24 Status: EDUARD Zaragoza Num: [id number] Spec Type: Surgical Subm Dr: Jose Matos MD Tissues: A Breast Core CALCIFICATIONS (RIGHT BREAST MICRO CALCIFICA) Procedures: HE/6, Gross/Micro L4 Patient: Nancy Joyce [id number] (Continued) Signed (signature on file) Glenn Rogel MD 02/04/24 1105 Normal [facility] C Urineon 01-14-2024 Bacteria identified Cx Nom (U) Microbiology PROCEDURE: Urine Culture [R1] SOURCE: U Random BODY SITE: COLLECTED DATE/TIME: 01/12/2024 14:07 EST RECEIVED DATE/TIME: 01/12/2024 17:40 EST START DATE/TIME: 01/12/2024 17:40 EST FREE TEXT SOURCE: LEIGH CLARK PA-C, PA-C, JENNIFER E FINAL REPORTS Final Report [] Verified Date/Time: 01/14/2024 09:41 EST 2,000 cfu/ml Mixed skin contaminants Performing Locations R1: [facility] performed at[facility] [address] [place] [address], [facility]- , [place], Normal [facility] Comment on above: Performed By: #### 2 [id number] #### [facility] [address] [place] [address] URINALYSISOrdered By: SYSTEM SYSTEM on 01-12-2024 Bilirubin Ql (U) Negative Normal Negativemg/ d L [facility] UA Auto SS Clarity (U) Clear (01/12/24 2:07 PM) Normal Clear [facility] UA Auto SS Color (U) Yellow 1 (01/12/24 2:07 PM) Normal Yellow [facility] UA Auto SS Comment on above: Interpretive Data: M icroscopic readings are only performed on those samples that meet specific criteria set forth by [facility]. Glucose Ql (U) Negative Normal Negativemg/d L [facility] UA Auto SS Hemoglobin Auto test strip (U) [Mass/Vol] Trace mg/dL Invalid Interpretation Code Negativemg/d L [facility] UA Auto SS Ketones Auto test strip Ql (U) Negative Normal Negativemg/d L [facility] UA Auto SS Leukocyte esterase Auto test strip Ql (U) Negative Normal NegativeLeu/ uL [facility] UA Auto SS Nitrite Auto test strip Ql (U) Negative Normal Negativemg/d L [facility] UA Auto SS pH (U) 5.0 *NA* (01/12/24 2:07 PM) Invalid Interpretation Code 5.0 - 9.0 [facility] UA Auto SS Protein Ql (U) Negative Normal Negativemg/d L [facility] UA Auto SS Specific gravity (U) [Rel density] 1.012 *NA* (01/12/24 2:07 PM) Invalid Interpretation Code 1.005 - 1.030 [facility] UA Auto SS Urobilinogen (U) [Mass/Vol] Negative Normal Negativemg/d L [facility] UA Auto SS URINALYSISOrdered By: Alexandra Godoy on 01-12-2024 UA Spec Desc Random Urine (01/12/24 2:07 PM) Normal [facility] UA Auto SS Urinalysis with Microon 12-24 Bilirubin Ql (U) Negative Normal Negative [facility] Comment on above: Performed By: #### 4 [id number] #### [facility] [address] [place] [address] Clarity (U) Clear Normal Clear [facility] Comment on above: Performed By: #### 4 [id number] #### [facility] [address] [place] [address] Color (U) Yellow Normal Yellow [facility] Comment on above: Result Comment: Micr oscopic readings are only performed on those samples that meet specific criteria set forth by [facility]. Performed By: #### 4 [id number] #### [facility] [address] [place] [address] Glucose Ql (U) Negative Normal Negative [facility] Comment on above: Performed By: #### 4 [id number] #### [facility] [address] [place] [address] Hemoglobin Auto test strip (U) [Mass/Vol] Trace Abnormal Negative [facility] Comment on above: Performed By: #### 4 [id number] #### [facility] [address] [place] [address] Ketones Auto test strip Ql (U) Negative Normal Negative [facility] Comment on above: Performed By: #### 4 [id number] #### [facility] [address] [place] [address] Leukocyte esterase Auto test strip Ql (U) Negative Normal Negative [facility] Comment on above: Performed By: #### 4 [id number] #### [facility] [address] [place] [address] Nitrite Auto test strip Ql (U) Negative Normal Negative [facility] Comment on above: Performed By: #### 4 [id number] #### [facility] [address] [place] [address] pH (U) 5.0 [pH] Invalid Interpretation Code 5.0-9.0 [facility] Comment on above: Performed By: #### 4 [id number] #### [facility] [address] [place] [address] Protein Ql (U) Negative Normal Negative [facility] Comment on above: Performed By: #### 4 [id number] #### [facility] [address] [place] [address] Specific gravity (U) [Rel density] 1.012 Invalid Interpretation Code 1.005-1.030 [facility] Comment on above: Performed By: #### 4 [id number] #### [facility] [address] [place] [address] Urobilinogen (U) [Mass/Vol] Negative Normal Negative [facility] Comment on above: Performed By: #### 4 [id number] #### [facility] [address] [place] [address] Type of Urine collection method Random Urine Normal [facility] Comment on above: Performed By: #### 4 [id number] #### [facility] [address] [place] [address] Urology Office/Clinic Noteon 01-12-2024 Urology Office/Clinic Note Urology Office/Clinic Note HPI Staff 63 year old female referred by Ama Edwards CNP for urine retention. Pt. states all the urinary issues started when she had her back surgery in September. Saw PCP 11/19/23 w dysuria. UA showed wbc/rbc/leuk/mucus/squa m + trich. Cx showed <10k pathogens. Tx'd w Flagyl. CHRISSIE 11/26/23 no hydro, pre-void volume 206ml, post-void volume 83ml. Radiologist read this as moderate PVR. Dysuria: no Incomplete bladder emptying: no, PVR 0mL Hematuria: no Frequency: at least once an hour Urgency: yes Nocturia: 5 or more times Stream: weak stream Post void dripping: no Wearing pads/ Depends: no Urge incontinence: no Stress incontinence: no Incontinence without Sensory Awareness: no Abdominal pain: no Flank pain: no Review of Systems PHQ Score Initial Depression Screen Score: 2 SCORE no fever, chills, malaise, myalgia. no rash/lesions. no chest pain, palpitations, or SOB. no abdominal pain, nausea, vomiting. no unilateral calf swelling, redness, pain Physical Exam Vitals & Measurements HR: 84(Peripheral) RR: 20 BP: 117/67 HT: 71 in HT: 180 cm WT: 73 kg WT: 160.937 lb BMI: 22.53 General: nontoxic, NAD Mouth: moist mucosa Lungs: normal respiratory effort Cardio: regular rate, good distal perfusion Abdomen: nondistended, no suprapubic distention or tenderness, no CVA tenderness Neurologic: Grossly normal Skin: No rashes or suspicious lesions Assessment/Plan 1. OAB (overactive bladder) (N32.81: Overactive bladder) Had back surgery in September (lumbar fusion w decompression). Worsening LUTS since then. Denies loss or bowel or bladder. Denies paresthesias. PVR 0ml today (83ml on external US). I explained that her PVR today was perfect and that despite radiologist noting moderate PVR a PVR of 83ml is actully completely normal for her age. I am not concerned with this at all and do not think urinary retention is contributing to her LUTS. UA completed in office today shows no signs of infection. BBSQ 20 poor control. q1h daytime, 4+nocturia, severe urgency. No UUI or ISACC. 1) Pt has severe constipation due to Tramadol she's been on post-op since her back surgery. Discussed bowel-bladder connection. Recommend aggressive bowel management. 2) Pt also admits to drinking a lot of bladder irritants. We discussed reducing these. 3) Discussed general pelvic floor strengthening and utilizing Kegel when she feels urge to void. -Pt was provided w printed pt education as well for all of the above. She will give these a try and contact office if no improvement w conservative management in 4-6 weeks. Could consider medication management at that time. Otherwise f/u PRN. Ordered: E&M of New Patient Moderate 45-59 Min 36146 2. Asymptomatic microscopic hematuria (R31.21: Asymptomatic microscopic hematuria) today's in-office UA shows trace-intact hgb. we will send for microscopic eval and culture. if shows significant microhematuria and completely negative cx, then we will need to proceed with hematuria eval. hematuria eval components were not discussed in depth during today's visit. if + will need phone call or o.v. to discuss at length. if micro negative then no additional action needed at this time - pt aware that no news is good news in this regard. Ordered: E&M of New Patient Moderate 45-59 Min 10608 Orders: [id number] Measure Post Void residual urine and/or bladder capacity by US- non-imaging Urinalysis with Micro Urine Culture Urnls Dip Stick Auto w/o Microscopy POC [id number] Follow-up With When Contact Information AMBER MONAHAN, LEIGH Mcleod, URL Only if needed [address] [place] [address] Business (1) Additional Instructions: Patient Education Overactive Bladder, Adult Problem List/Past Medical History Ongoing Anxiety disorder Asymptomatic microscopic hematuria Cervical radiculopathy Chronic obstructive pulmonary disease Gastro-esophageal reflux disease without esophagitis Hyperlipidemia Insomnia Lumbar degenerative disc disease Nicotine dependence OAB (overactive bladder) Osteoarthritis Thoracic back pain Historical No qualifying data Procedure/Surgical History Colonoscopy, Surgical procedure on cervical spine, Tonsillectomy. Medications omeprazole 40 mg Cap-DR, 40 mg= 1 cap(s) orphenadrine 100 mg ER Tab, 100 mg= 1 tab(s) Spiriva Respimat 60 ACT 2.5 mcg/inh inhalation aerosol, 2 inh traMADOL 50 mg Tab, 50 mg= 1 tab(s) traZODONE 50 mg Tab, 50 mg= 1 tab(s) Allergies No Known Medication Allergies Social History Alcohol Current. Beer, Liquor. 1-2 times per month., 01/12/2024 Substance Abuse Never., 01/12/2024 Tobacco 10 or more cigarettes (1/2 pack or more)/day in last 30 days Tobacco Use:. Yes, 01/12/2024 Family History Dementia: Mother. Lupus: Sister. Primary malignant neoplasm of female breast: Sister. Lab Results Ambulatory Point of Care Results Bilirubin Urine Dipstick: Negativ (more content not included)... Normal [facility] Comment on above: Result Comment: Elec tronically Signed By: LEIGH CLARK PA-C\.earle\Date and Time Signed: 01/12/24 14:26 EST XR MODIFIED BARIUM SWALLOWon 03-25-2022 XR MODIFIED [...] additional discussion and recommendations. Electronically authenticated by: JOSE MATOS Date: 2022-03-25 13:53 Normal [facility] INSULINon 03-13-2022 Insulin 3.9 uIU/mL Normal 2.6-24.9 [facility] Comment on above: Performed By: #### O BSCRN #### [facility] [address] [place] [address] Dr. Ambrosio Ramirez XR CSPINE MIN 4 VIEWSon 02-23 XR CSPINE MIN 4 VIEWS EXAMINATION: XR CS PINE MIN 4 VIEWS HISTORY: Neck pain ; [...] Grossly stable degenerative changes. Electronically authenticated by: JOSE MATOS Date: 2022-03-13 08:09 Normal [facility] CBC AUTO DIFFon 03-12-2022 BASO # 0.0 103/ul Normal 0.0-0.1 [facility] Comment on above: Performed By: #### C BC #### [facility] [address] [place] [address] Dr. Ambrosio Ramirez Basophils/100 WBC (Bld) 0.7 % Normal 0.2-2.0 [facility] Comment on above: Performed By: #### C BC #### [facility] [address] [place] [address] Dr. Ambrosio Ramirez EO # 0.1 103/ul Normal 0.0-0.7 [facility] Comment on above: Performed By: #### C BC #### [facility] [address] [place] [address] Dr. Ambrosio Ramirez Eosinophils/100 WBC (Bld) 0.9 % Normal 0.9-7.0 [facility] Comment on above: Performed By: #### C BC #### [facility] [address] [place] [address] Dr. Ambrosio Ramirez Erythrocyte distribution width (RBC) [Ratio] 12.3 % Normal 11.0-15.0 [facility] Comment on above: Performed By: #### C BC #### [facility] [address] [place] [address] Dr. Ambrosio Ramirez Hematocrit (Bld) [Volume fraction] 46.0 % Normal 36.0-48.0 [facility] Comment on above: Performed By: #### C BC #### [facility] [address] [place] [address] Dr. Ambrosio Ramirez Hemoglobin (Bld) [Mass/Vol] 15.2 g/dL Normal 12.0-16.0 [facility] Comment on above: Performed By: #### C BC #### [facility] [address] [place] [address] Dr. Ambrosio Ramirez IG # 0.03 10e3/ul Normal 0.00-0.03 [facility] Comment on above: Performed By: #### C BC #### [facility] [address] [place] [address] Dr. Ambrosio Ramirez IG % 0.5 % Normal 0.0-0.5 [facility] Comment on above: Performed By: #### C BC #### [facility] [address] [place] [address] Dr. Ambrosio Ramirez LYMPH # 2.0 103/ul Normal 1.2-3.8 [facility] Comment on above: Performed By: #### C BC #### [facility] [address] [place] [address] Dr. Ambrosio Ramirez Lymphocytes/100 WBC (Bld) 35.0 % Normal 20.5-60.0 [facility] Comment on above: Performed By: #### C BC #### [facility] [address] [place] [address] Dr. Ambrosio Ramirez MANUAL DIFF REQ NO Normal [facility] Comment on above: Performed By: #### C BC #### [facility] [address] [place] [address] Dr. Ambrosio Ramirez MCH (RBC) [Entitic mass] 33.8 pg Normal 26.7-34.0 [facility] Comment on above: Performed By: #### C BC #### [facility] [address] [place] [address] Dr. Ambrosio Ramirez MCHC (RBC) [Mass/Vol] 33.0 g/dL Normal 29.9-35.2 [facility] Comment on above: Performed By: #### C BC #### [facility] [address] [address] [address] Ambrosio Ramirez MCV (RBC) [Entitic vol] 102.2 fL Critically high 81.0-99.0 [facility] Comment on above: Performed By: #### C BC #### [facility] [address] [address] [address] Ambrosio Ramirez MONO # 0.4 103/ul Normal 0.3-0.8 [facility] Comment on above: Performed By: #### C BC #### [facility] [address] [address] [address] Ambrosio Ramirez Monocytes/100 WBC (Bld) 7.2 % Normal 1.7-12.0 [facility] Comment on above: Performed By: #### C BC #### [facility] [address] [place] [address] Dr. Ambrosio Ramirez NEUT # 3.2 103/ul Normal 1.4-6.5 [facility] Comment on above: Performed By: #### C BC #### [facility] [address] [place] [address] Dr. Ambrosio Ramirez Neutrophils/100 WBC (Bld) 55.7 % Normal 43.0-75.0 [facility] [facility] Comment on above: Performed By: #### C BC #### [facility] [address] [place] [address] Dr. Ambrosio Ramirez Platelet mean volume (Bld) [Entitic vol] 9.1 fL Critically low 9.5-13.5 [facility] Comment on above: Performed By: #### C BC #### [facility] [address] [place] [address] Dr. Ambrosio Ramirez PLT 234 103/ul Normal 150-450 [facility] Comment on above: Performed By: #### C BC #### [facility] [address] [place] [address] Dr. Ambrosio Ramirez RBC 4.50 106/ul Normal 4.20-5.40 [facility] Comment on above: Performed By: #### C BC #### [facility] [address] [address] [address] Ambrosio Ramirez WBC 5.7 103/ul Normal 4.0-11.0 [facility] Comment on above: Performed By: #### C BC #### [facility] [address] [address] [address] Ambrosio Ramirez FREE THYROXINE INDEX T7on FTI 2.41 Normal 1.30-4.50 [facility] Comment on above: Performed By: #### A 1C #### [facility] [address] [place] [address] Dr. Ambrosio Ramirez T3U 33.0 % Normal 30.0-39.0 [facility] Comment on above: Performed By: #### A 1C #### [facility] [address] [place] [address] Dr. Ambrosio Ramirez T4 [Mass/Vol] 7.30 ug/dL Normal 4.80-13.90 [facility] Comment on above: Performed By: #### A 1C #### [facility] [address] [place] [address] Dr. Ambrosio Ramirez GLYCOHEMOGLOBIN A1Con 2022 ADA RECOMMENDATION SEE BELOW Normal [facility] Comment on above: Result Comment: ADA RECOMMENDED LIMIT 4.0 - 6.0 ADA THERAPEUTIC TARGET < 7.0 ACTION SUGGESTED > 7.0 Performed By: #### A 1C #### [facility] [address] [place] [address] Dr. Ambrosio Ramirez Glucose [Mass/Vol] 100 mg/dL Normal [facility] Comment on above: Performed By: #### A 1C #### [facility] [address] [place] [address] Dr. Ambrosio Ramirez HbA1c (Bld) [Mass fraction] 5.1 % Normal 4.5-6.2 [facility] Comment on above: Performed By: #### A 1C #### [facility] [address] [place] [address] Dr. Ambrosio Ramirez IRONon 03-12-2022 Iron [Mass/Vol] 148.0 ug/dL Normal 50.0-170.0 [facility] Comment on above: Performed By: #### O BSCRN #### [facility] [address] [address] [address] Ambrosio Ramirez LIPID PROFILEon 03-12-2022 CHOL-HDL RATIO NORM SEE BELOW Normal [facility] Comment on above: Result Comment: 3.3 - 4.4 LOW RISK 4.4 - 7.1 AVERAGE RISK 7.1 - 11.0 MODERATE RISK >11.0 HIGH RISK Performed By: #### A 1C #### [facility] [address] [address] [address] Ambrosio Ramirez Cholesterol [Mass/Vol] 234 mg/dL Critically high <=200 [facility] Comment on above: Performed By: #### A 1C #### [facility] [address] [address] [address] Ambrosio Ramirez Cholesterol in HDL [Mass/Vol] 71 mg/dL Critically high 40-60 [facility] Comment on above: Performed By: #### A 1C #### [facility] [address] [address] [address] Ambrosio Ramirez Cholesterol in LDL [Mass/Vol] 132.4 mg/dL Normal [facility] Comment on above: Performed By: #### A 1C #### [facility] [address] [address] [address] Ambrosio Ramirez Cholesterol.total/Cho lesterol in HDL [Mass ratio] 3.3 {ratio} Normal [facility] Comment on above: Performed By: #### A 1C #### [facility] [address] [address] [address] Ambrosio Ramirez HDL NORMAL > or = 60 mg/dl - LO W CARDIOVASCULAR RISK <40 mg/dl - HIGH CARDIOVASCULAR RISK Normal [facility] Comment on above: Performed By: #### A 1C #### [facility] [address] [address] [address] Ambrosio Ramirez LDL CALC NORMAL SEE BELOW Normal [facility] Comment on above: Result Comment: <100 mg/dl OPTIMAL 100 - 129 mg/dl NEAR OR ABOVE OPTIMAL 130 - 159 mg/dl BORDERLINE HIGH 160 - 189 mg/dl HIGH >190 mg/dl VERY HIGH Performed By: #### A 1C #### [facility] [address] [address] [address] Ambrosio Ramirez Triglyceride [Mass/Vol] 153 mg/dL Critically high <=150 [facility] Comment on above: Performed By: #### A 1C #### [facility] [address] [address] [address] Ambrosio Ramirez VLDL CALC 30.6 mg/dL Normal [facility] Comment on above: Performed By: #### A 1C #### [facility] [address] [address] [address] Ambrosio Ramirez PROF 14(COMP METB)on 023 Albumin [Mass/Vol] 4.2 g/dL Normal 3.4-5.0 [facility] Comment on above: Performed By: #### A 1C #### [facility] [address] [address] [address] Ambrosio Ramirez Albumin/Globulin [Mass ratio] 1.3 {ratio} Normal [facility] Comment on above: Performed By: #### A 1C #### [facility] [address] [address] [address] Ambrosio Ramirez ALP [Catalytic activity/Vol] 62 U/L Normal 46-116 [facility] Comment on above: Performed By: #### A 1C #### [facility] [address] [place] [address] Dr. Ambrosio Ramirez ALT [Catalytic activity/Vol] 27 U/L Normal 14-59 [facility] Comment on above: Performed By: #### A 1C #### [facility] [address] [address] [address] Ambrosio Ramirez Anion gap [Moles/Vol] 12.8 mmol/L Normal [facility] Comment on above: Performed By: #### A 1C #### [facility] [address] [address] [address] Ambrosio Ramirez AST [Catalytic activity/Vol] 39 U/L Critically high 15-37 [facility] Comment on above: Performed By: #### A 1C #### [facility] [address] [address] [address] Ambrosio Ramirez Bilirubin [Mass/Vol] 0.4 mg/dL Normal 0.2-1.0 [facility] Comment on above: Performed By: #### A 1C #### [facility] [address] [address] [address] Ambrosio Ramirez Calcium [Mass/Vol] 9.1 mg/dL Normal 8.5-10.1 [facility] Comment on above: Performed By: #### A 1C #### [facility] [address] [address] [address] Ambrosio Ramirez Chloride [Moles/Vol] 103 mmol/L Normal 98-107 [facility] Comment on above: Performed By: #### A 1C #### [facility] [address] [place] [address] Dr. Ambrosio Ramirez CO2 [Moles/Vol] 30.5 mmol/L Normal 21.0-32.0 [facility] Comment on above: Performed By: #### A 1C #### [facility] [address] [place] [address] Dr. Ambrosio Ramirez Creatinine [Mass/Vol] 0.54 mg/dL Critically low 0.55-1.02 [facility] Comment on above: Performed By: #### A 1C #### [facility] [address] [place] [address] Dr. Ambrosio Ramirez EGFR-AF MONTENEGRIN >60 Normal >=60 [facility] Comment on above: Performed By: #### A 1C #### [facility] [address] [place] [address] Dr. Ambrosio Ramirez EGFR-NON AF MONTENEGRIN >60 Normal >=60 [facility] Comment on above: Performed By: #### A 1C #### [facility] [address] [place] [address] Dr. Ambrosio Ramirez Globulin (S) [Mass/Vol] 3.3 g/dL Normal [facility] Comment on above: Performed By: #### A 1C #### [facility] [address] [place] [address] Dr. Ambrosio Ramirez Glucose [Mass/Vol] 88 mg/dL Normal 74-106 [facility] Comment on above: Performed By: #### A 1C #### [facility] [address] [address] [address] Ambrosio Ramirez Potassium [Moles/Vol] 4.3 mmol/L Normal 3.5-5.1 [facility] Comment on above: Performed By: #### A 1C #### [facility] [address] [address] [address] Ambrosio Ramirez Protein [Mass/Vol] 7.5 g/dL Normal 6.4-8.2 [facility] Comment on above: Performed By: #### A 1C #### [facility] [address] [place] [address] Dr. Ambrosio Ramirez Sodium [Moles/Vol] 142 mmol/L Normal 136-145 [facility] Comment on above: Performed By: #### A 1C #### [facility] [address] [address] [address] Ambrosio Ramirez Urea nitrogen [Mass/Vol] 9.0 mg/dL Normal 7.0-18.0 [facility] Comment on above: Performed By: #### A 1C #### [facility] [address] [place] [address] Dr. Ambrosio Ramirez Urea nitrogen/Creatinine [Mass ratio] 16.7 mg/mg Normal [facility] Comment on above: Performed By: #### A 1C #### [facility] [address] [place] [address] Dr. Ambrosio Ramirez TSHon 03-12-2022 TSH 1.934 uIU/mL Normal 0.358-3.740 [facility] Comment on above: Performed By: #### A 1C #### [facility] [address] [place] [address] Dr. Ambrosio Ramirez XR TSPINE 3 VIEWSon [...] GEORGE CATALAN Date: 2022-03-12 17:07 Normal [facility] Covid-19 PCR (CVDTB)on SARS-CoV-2 (COVID-19) RNA JAYY+probe Ql (Unsp spec) Not detected Normal NOT DETECTED [facility] Comment on above: Result Comment: When diagnostic [...] for this test is supported by the [place] of Health and Human Service's declaration that [...] used). Performed By: #### C VDTB #### [facility] [address] [place] [address] Dr. Ambrosio Ramirez INFLUENZA A AND B AGon 01-27 INFLUENZA A AG Negative Normal NEGATIVE SEE COMMENT [facility] Comment on above: Performed By: #### I NFLUAB #### [facility] [address] [place] [address] Dr. Ambrosio Ramirez INFLUENZA B AG Negative Normal NEGATIVE SEE COMMENT [facility] Comment on above: Performed By: #### I NFLUAB #### [facility] [address] [place] [address] Dr. Ambrosio Ramirez INTERNAL CONTROLS Within Normal Limits Normal Wi thin Normal Limits [facility] Comment on above: Performed By: #### I NFLUAB #### [facility] [id number] Ambrosio Ramirez XR CHEST 2 Von 01-27-2022 XR CHEST 2 V EXAMINATION: XR CHES T 2 V HISTORY: Fever COMPARISON: No relevant [...] GEORGE ROWE Date: 2022-01-27 14:42 Normal [facility] RPR QUANTon 08-26-2021 Rapid Plasma Reagin, Quant Non-Reactive Normal NonRea<1:1 [facility] Comment on above: Result Comment: Plea se Note: This test does not meet current guidelines for screening and diagnosis of syphilis. This test is intended for following treatment response in patients being treated for syphilis infection. To screen for syphilis infection, a reflex cascade that includes both RPR and a treponema-specific assay should be utilized, such as Treponema pallidum (Syphilis) Screening [place] (465282) or Rapid Plasma Reagin (RPR) Test With Reflex to Quantitative RPR and Confirmatory Treponema pallidum Antibodies (772105). Performed By: #### R PRQ #### [facility] [address] [place] [address] Dr. Ambrosio Ramirez HEP B SURFACE ANTIGEN SCREEN on 08-24-2021 HBsAg Screen Negative Normal Negative [facility] Comment on above: Performed By: #### H BSANS #### [facility] [address] [place] [address] Dr. Ambrosio Ramirez HEPATITIS C ANTIBODYon 08-24 Hep C Virus Ab <0.1 Normal 0.0-0.9 [facility] Comment on above: Result Comment: Nega [...] Hepatitis C Virus (HCV) RNA, Diagnosis, JAYY (947955) and Hepatitis C Virus (HCV) Antibody with reflex to Quantitative Real-time PCR ([id number]). Performed By: #### H CV #### [facility] [address] [place] [address] Dr. Ambrosio Ramirez INSULINon 08-23-2021 Insulin 5.0 uIU/mL Normal 2.6-24.9 [facility] Comment on above: Performed By: #### A 1C #### [facility] [address] [place] [address] Dr. Ambrosio Ramirez OCC BLD IMMUNO SCREENon OCCULT BLOOD Negative Normal NEGATIVE [facility] Comment on above: Performed By: #### O BSCRN #### [facility] [address] [place] [address] Dr. Ambrosio Ramirez CBC AUTO DIFFon 08-22-2021 BASO # 0.1 103/ul Normal 0.0-0.1 [facility] Comment on above: Performed By: #### O BSCRN #### [facility] [address] [place] [address] Dr. Ambrosio Ramirez Basophils/100 WBC (Bld) 1.0 % Normal 0.2-2.0 [facility] Comment on above: Performed By: #### O BSCRN #### [facility] [address] [place] [address] Dr. Ambrosio Ramirez EO # 0.1 103/ul Normal 0.0-0.7 [facility] Comment on above: Performed By: #### O BSCRN #### [facility] [address] [place] [address] Dr. Ambrosio Ramirez Eosinophils/100 WBC (Bld) 1.8 % Normal 0.9-7.0 [facility] Comment on above: Performed By: #### O BSCRN #### [facility] [address] [place] [address] Dr. Ambrosio Ramirez Erythrocyte distribution width (RBC) [Ratio] 11.9 % Normal 11.0-15.0 [facility] Comment on above: Performed By: #### O BSCRN #### [facility] [address] [place] [address] Dr. Ambrosio Ramirez Hematocrit (Bld) [Volume fraction] 48.6 % Critically high 36.0-48.0 [facility] Comment on above: Performed By: #### O BSCRN #### [facility] [address] [place] [address] Dr. Ambrosio Ramirez Hemoglobin (Bld) [Mass/Vol] 16.3 g/dL Critically high 12.0-16.0 [facility] Comment on above: Performed By: #### O BSCRN #### [facility] [address] [place] [address] Dr. Ambrosio Ramirez IG # 0.03 10e3/ul Normal 0.00-0.03 [facility] Comment on above: Performed By: #### O BSCRN #### [facility] [address] [place] [address] Dr. Ambrosio Ramirez IG % 0.6 % Critically high 0.0-0.5 [facility] Comment on above: Performed By: #### O BSCRN #### [facility] [address] [place] [address] Dr. Ambrosio Ramirez LYMPH # 2.4 103/ul Normal 1.2-3.8 [facility] Comment on above: Performed By: #### O BSCRN #### [facility] [address] [place] [address] Dr. Ambrosio Ramirez Lymphocytes/100 WBC (Bld) 46.9 % Normal 20.5-60.0 [facility] Comment on above: Performed By: #### O BSCRN #### [facility] [address] [place] [address] Dr. Ambrosio Ramirez MANUAL DIFF REQ NO Normal [facility] Comment on above: Performed By: #### O BSCRN #### [facility] [address] [place] [address] Dr. Ambrosio Ramirez MCH (RBC) [Entitic mass] 34.9 pg Critically high 26.7-34.0 [facility] Comment on above: Performed By: #### O BSCRN #### [facility] [address] [place] [address] Dr. Ambrosio Ramirez MCHC (RBC) [Mass/Vol] 33.5 g/dL Normal 29.9-35.2 [facility] Comment on above: Performed By: #### O BSCRN #### [facility] [address] [place] [address] Dr. Ambrosio Ramirez MCV (RBC) [Entitic vol] 104.1 fL Critically high 81.0-99.0 [facility] Comment on above: Performed By: #### O BSCRN #### [facility] [address] [place] [address] Dr. Ambrosio Ramirez MONO # 0.4 103/ul Normal 0.3-0.8 [facility] Comment on above: Performed By: #### O BSCRN #### [facility] [address] [place] [address] Dr. Ambrosio Ramirez Monocytes/100 WBC (Bld) 8.2 % Normal 1.7-12.0 [facility] Comment on above: Performed By: #### O BSCRN #### [facility] [address] [place] [address] Dr. Ambrosio Ramirez NEUT # 2.1 103/ul Normal 1.4-6.5 [facility] Comment on above: Performed By: #### O BSCRN #### [facility] [address] [place] [address] Dr. Ambrosio Ramirez Neutrophils/100 WBC (Bld) 41.5 % Critically low 43.0-75.0 [facility] Comment on above: Performed By: #### O BSCRN #### [facility] [address] [place] [address] Dr. Ambrosio Ramirez Platelet mean volume (Bld) [Entitic vol] 9.3 fL Critically low 9.5-13.5 [facility] Comment on above: Performed By: #### O BSCRN #### [facility] [address] [place] [address] Dr. Ambrosio Ramirez PLT 210 103/ul Normal 150-450 [facility] Comment on above: Performed By: #### O BSCRN #### [facility] [address] [place] [address] Dr. Ambrosio Ramirez RBC 4.67 106/ul Normal 4.20-5.40 [facility] Comment on above: Performed By: #### O BSCRN #### [facility] [address] [place] [address] Dr. Ambrosio Ramirez WBC 5.0 103/ul Normal 4.0-11.0 [facility] Comment on above: Performed By: #### O BSCRN #### [facility] [address] [place] [address] Dr. Ambrosio Ramirez FREE THYROXINE INDEX T7on FTI 2.72 Normal 1.30-4.50 [facility] Comment on above: Performed By: #### O BSCRN #### [facility] [address] [place] [address] Dr. Ambrosio Ramirez T3U 32.0 % Normal 30.0-39.0 [facility] Comment on above: Performed By: #### O BSCRN #### [facility] [address] [place] [address] Dr. Ambrosio Ramirez T4 [Mass/Vol] 8.50 ug/dL Normal 4.80-13.90 [facility] Comment on above: Performed By: #### O BSCRN #### [facility] [address] [place] [address] Dr. Ambrosio Ramirez GLYCOHEMOGLOBIN A1Con 2021 ADA RECOMMENDATION SEE BELOW Normal [facility] Comment on above: Result Comment: ADA RECOMMENDED LIMIT 4.0 - 6.0 ADA THERAPEUTIC TARGET < 7.0 ACTION SUGGESTED > 7.0 Performed By: #### A 1C #### [facility] [address] [place] [address] Dr. Ambrosio Ramirez Glucose [Mass/Vol] 108 mg/dL Normal [facility] Comment on above: Performed By: #### A 1C #### [facility] [address] [address] [address] Ambrosio Ramirez HbA1c (Bld) [Mass fraction] 5.4 % Normal 4.5-6.2 [facility] Comment on above: Performed By: #### A 1C #### [facility] [address] [address] [address] Ambrosio Ramirez HIV 1/2 RAPID (EXPOSURE ONLY )on 08-22-2021 HIV AB Negative Normal [facility] Comment on above: Performed By: #### A 1C #### [facility] [address] [address] [address] Ambrosio Ramirez HIV AG Negative Normal [facility] Comment on above: Performed By: #### A 1C #### [facility] [address] [address] [address] Ambrosio Ramirez INTERNAL CONTROLS Within Normal Limits Normal [place] thin Normal Limits [facility] Comment on above: Performed By: #### A 1C #### [facility] [address] [address] [address] Ambrosio Ramirez RAPID HIV INFO SEE BELOW Normal [facility] Comment on above: Result Comment: This test is used for the initial screening of the exposure source. Confirmation of all results will be obtained through reference lab testing. Performed By: #### A 1C #### [facility] [address] [place] [address] Dr. Ambrosio Ramirez IRONon 08-22-2021 Iron [Mass/Vol] 137.0 ug/dL Normal 50.0-170.0 [facility] Comment on above: Performed By: #### I HAMLET #### [facility] [address] [place] [address] Dr. Ambrosio Ramirez LIPID PROFILEon 08-22-2021 CHOL-HDL RATIO NORM SEE BELOW Normal [facility] Comment on above: Result Comment: 3.3 - 4.4 LOW RISK 4.4 - 7.1 AVERAGE RISK 7.1 - 11.0 MODERATE RISK >11.0 HIGH RISK Performed By: #### O BSCRN #### [facility] [address] [place] [address] Dr. Ambrosio Ramirez Cholesterol [Mass/Vol] 251 mg/dL Critically high <=200 [facility] Comment on above: Performed By: #### O BSCRN #### [facility] [address] [address] [address] Ambrosio Ramirez Cholesterol in HDL [Mass/Vol] 67 mg/dL Critically high 40-60 [facility] Comment on above: Performed By: #### O BSCRN #### [facility] [address] [address] [address] Ambrosio Ramirez Cholesterol in LDL [Mass/Vol] 154.8 mg/dL Normal [facility] Comment on above: Performed By: #### O BSCRN #### [facility] [address] [address] [address] Ambrosio Ramirez Cholesterol.total/Cho lesterol in HDL [Mass ratio] 3.7 {ratio} Normal [facility] Comment on above: Performed By: #### O BSCRN #### [facility] [address] [address] [address] Ambrosio Ramirez HDL NORMAL > or = 60 mg/dl - LO W CARDIOVASCULAR RISK <40 mg/dl - HIGH CARDIOVASCULAR RISK Normal [facility] Comment on above: Performed By: #### O BSCRN #### [facility] [address] [address] [address] Ambrosio Ramirez LDL CALC NORMAL SEE BELOW Normal [facility] Comment on above: Result Comment: <100 mg/dl OPTIMAL 100 - 129 mg/dl NEAR OR ABOVE OPTIMAL 130 - 159 mg/dl BORDERLINE HIGH 160 - 189 mg/dl HIGH >190 mg/dl VERY HIGH Performed By: #### O BSCRN #### [facility] [address] [address] [address] Ambrosio Ramirez Triglyceride [Mass/Vol] 146 mg/dL Normal <=150 [facility] Comment on above: Performed By: #### O BSCRN #### [facility] [address] [address] [address] Ambrosio Ramirez VLDL CALC 29.2 mg/dL Normal [facility] Comment on above: Performed By: #### O BSCRN #### [facility] [address] [address] [address] Ambrosio Ramirez PROF 14(COMP METB)on 022 Albumin [Mass/Vol] 4.3 g/dL Normal 3.4-5.0 [facility] Comment on above: Performed By: #### O BSCRN #### [facility] [address] [place] [address] Dr. Ambrosio Ramirez Albumin/Globulin [Mass ratio] 1.2 {ratio} Normal [facility] Comment on above: Performed By: #### O BSCRN #### [facility] [address] [place] [address] Dr. Ambrosio Ramirez ALP [Catalytic activity/Vol] 57 U/L Normal 46-116 [facility] Comment on above: Performed By: #### O BSCRN #### [facility] [address] [place] [address] Dr. Ambrosio Ramirez ALT [Catalytic activity/Vol] 56 U/L Normal 14-59 [facility] Comment on above: Performed By: #### O BSCRN #### [facility] [address] [place] [address] Dr. Ambrosio Ramirez Anion gap [Moles/Vol] 11.5 mmol/L Normal [facility] Comment on above: Performed By: #### O BSCRN #### [facility] [address] [place] [address] Dr. Ambrosio Ramirez AST [Catalytic activity/Vol] 75 U/L Critically high 15-37 [facility] Comment on above: Performed By: #### O BSCRN #### [facility] [address] [place] [address] Dr. Ambrosio Ramirez Bilirubin [Mass/Vol] 0.4 mg/dL Normal 0.2-1.0 [facility] Comment on above: Performed By: #### O BSCRN #### [facility] [address] [place] [address] Dr. Ambrosio Ramirez Calcium [Mass/Vol] 8.7 mg/dL Normal 8.5-10.1 [facility] Comment on above: Performed By: #### O BSCRN #### [facility] [address] [address] [address] Ambrosio Ramirez Chloride [Moles/Vol] 105 mmol/L Normal 98-107 [facility] Comment on above: Performed By: #### O BSCRN #### [facility] [address] [address] [address] Ambrosio Ramirez CO2 [Moles/Vol] 30.3 mmol/L Normal 21.0-32.0 [facility] Comment on above: Performed By: #### O BSCRN #### [facility] [address] [address] [address] Ambrosio Ramirez Creatinine [Mass/Vol] 0.67 mg/dL Normal 0.55-1.02 [facility] Comment on above: Performed By: #### O BSCRN #### [facility] [address] [place] [address] Dr. Ambrosio Ramirez EGFR-AF MONTENEGRIN >60 Normal >=60 [facility] Comment on above: Performed By: #### O BSCRN #### [facility] [address] [address] [address] Ambrosio Ramirez EGFR-NON AF MONTENEGRIN >60 Normal >=60 [facility] Comment on above: Performed By: #### O BSCRN #### [facility] [address] [address] [address] Ambrosio Ramirez Globulin (S) [Mass/Vol] 3.7 g/dL Normal [facility] Comment on above: Performed By: #### O BSCRN #### [facility] [address] [address] [address] Ambrosio Ramirez Glucose [Mass/Vol] 93 mg/dL Normal 74-106 [facility] Comment on above: Performed By: #### O BSCRN #### [facility] [address] [address] [address] Ambrosio Ramirez Potassium [Moles/Vol] 4.8 mmol/L Normal 3.5-5.1 [facility] Comment on above: Performed By: #### O BSCRN #### [facility] [address] [place] [address] Dr. Ambrosio Ramirez Protein [Mass/Vol] 8.0 g/dL Normal 6.4-8.2 [facility] Comment on above: Performed By: #### O BSCRN #### [facility] [address] [place] [address] Dr. Ambrosio Ramirez Sodium [Moles/Vol] 142 mmol/L Normal 136-145 [facility] Comment on above: Performed By: #### O BSCRN #### [facility] [address] [place] [address] Dr. Ambrosio Ramirez Urea nitrogen [Mass/Vol] 8.0 mg/dL Normal 7.0-18.0 [facility] Comment on above: Performed By: #### O BSCRN #### [facility] [address] [place] [address] Dr. Ambrosoi Ramirez Urea nitrogen/Creatinine [Mass ratio] 11.9 mg/mg Normal [facility] Comment on above: Performed By: #### O BSCRN #### [facility] [address] [place] [address] Dr. Ambrosio Ramirez TSHon 08-22-2021 TSH 2.117 uIU/mL Normal 0.358-3.740 [facility] Comment on above: Performed By: #### O BSCRN #### [facility] [address] [place] [address] Dr. 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 Electronically authenticated by: GEORGE ROWE Date: 2021-08-22 21:07 Normal [facility] Vital Signs Date Time Vital Sign Value Performing Clinician Facility 01-12-2024 13:34-0500 Blood Pressure Location LEIGH CLARK [facility] 01-12-2024 13:34-0500 Diastolic blood pressure 67 mm[Hg] LEIGH AMBER [facility] 01-12-2024 13:34-0500 Heart rate 84 /min LEIGH AMBER [facility] 01-12-2024 13:34-0500 Respiratory rate 20 /min LEIGH AMBER [facility] 01-12-2024 13:34-0500 Systolic blood pressure 117 mm[Hg] LEIGH AMBER [facility] 05-09-2022 10:14-0400 Diastolic blood pressure 85 mm[Hg] SUPPLY CHAIN ANALYST-C Ama Jerry Work Phone: [facility] 05-09-2022 10:14-0400 Heart rate 99 /min SUPPLY CHAIN ANALYST-C Ama Jerry Work Phone: [facility] 05-09-2022 10:14-0400 Respiratory rate 18 /min SUPPLY CHAIN ANALYST-C Ama Jerry Work Phone: [facility] 05-09-2022 10:14-0400 SaO2% (BldA) [Mass fraction] 99 % SUPPLY CHAIN ANALYST-C Ama Jerry Work Phone: [facility] 05-09-2022 10:14-0400 Systolic blood pressure 124 mm[Hg] SUPPLY CHAIN ANALYST-C Ama Jerry Work Phone: [facility] 05-09-2022 08:04-0400 Body height 180.34 cm SUPPLY CHAIN ANALYST-C Ama Jerry Work Phone: [facility] 05-09-2022 08:04-0400 Body weight 58.96 kg SHANE-C Ama Edwards Work Phone: [facility] 05-01-2022 11:15-0500 Body height Imad Asaad Other [facility] Other 05-01-2022 11:15-0500 Body mass index (BMI) [Ratio] 18.13 kg/m2 Imad Asaad Other [facility] Other 05-01-2022 11:15-0500 Body weight 58.97 kg Imad Asaad Other [facility] Other 05-01-2022 11:15-0500 Diastolic blood pressure 102 mm[Hg] Imad Asaad Other [facility] Other 05-01-2022 11:15-0500 Respiratory rate 16 /min Imad Asaad Other [employer] Other 05-01-2022 11:15-0500 Systolic blood pressure 158 mm[Hg] Imad Asaad Other [employer] [facility] Other Encounters Encounter Date Encounter Type Care Provider Facility Start: 02-08-2024 End: 02-08-2024 ambulatory Manuel Reynaga MD Facility:[facility] Start: 02-02-2024 End: 02-02-2024 ambulatory Ama Edwards Facility:[facility] Start: 01-12-2024 End: 01-12-2024 Lab Drop off [facility] Start: 01-12-2024 End: 01-12-2024 ambulatory LEIGH CLARK Facility:[facility] [place] [facility] Start: 01-12-2024 End: 01-12-2024 Patient encounter procedure [facility] Start: 12-28-2023 End: 12-28-2023 ambulatory Manuel Reynaga MD Facility: [facility] Start: 12-22-2023 End: 12-22-2023 ambulatory LEIGH CLARK Facility:[facility] [place] [facility] Start: 12-22-2023 End: 12-22-2023 Patient encounter procedure LEIGH Mcleod AMBER [facility] Start: 12-14-2023 End: 12-14-2023 ambulatory Manuel Reynaga MD Facility: [place] Start: 11-23-2023 ambulatory LEIGH CLARK Facility :[facility] Start: 09-21-2023 End: 09-21-2023 ambulatory Manuel Reynaga MD Facility: [facility] Start: 08-31-2023 End: 08-31-2023 ambulatory Andkrishna Lugoitis Facility: [place] [facility] Start: 08-17-2023 End: 08-17-2023 ambulatory Manuel Lugoitis Facility: [place] Start: 07-06-2023 End: 07-06-2023 ambulatory Andkrishna Lugoitis Facility: [facility] Start: 05-09-2022 End: 05-09-2022 Admission to same day surgery center SUPPLY CHAIN ANALYST-C Ama Edwards Work Phone: [facility] Work Phone: Start: 05-09-2022 End: 05-09-2022 ambulatory SUPPLY CHAIN ANALYST-C Ama Edwards Work Phone: [facility] Work Phone: Start: 05-02-2022 End: 05-02-2022 ambulatory Imad Asaad Other [facility] Other Start: 05-02-2022 Telephone encounter Imad Asaad [facility] Start: 05-01-2022 End: 05-01-2022 ambulatory Imad Asaad Other [facility] Other Start: 05-01-2022 Office consultation new/estab patient [...] Procedure Detail Performing Clinician Start: 05-09-2022 Esophagogastroduodenoscopy SUPPLY CHAIN ANALYST-C Ama patel Work Phone: Colonoscopy [facility] Screening for malign ant neoplasm of colon Imad Asaad Other Surgical procedure o n cervical spine [facility] Tonsillectomy [facility] Plan of Treatment Date Care Activity Detail Author Start: 05-09-2022 [facility] Patient Education Colon Polyps H emorrhoids (DC) Diverticulosis (DC) Gastritis (DC) [facility] Work Phone: Payers Date Payer Category Payer Self-pay 2022 Unknown 1960 Unknown [id number] 2.16.84 [id number] 1960 Unknown [id number] 2.16.84 [id number] 1960 Unknown [id number] 2.16.84 [id number] 1960 Unknown [id number] 2.16.84 0.1.539506.3.579.2.593 1960 Unknown [id number] 2.16.84 0.1.336505.3.579.2.593 1960 Unknown [id number] 2.16.84 0.1.481023.3.579.2.593 1960 Unknown [id number] 2.16.84 0.1.284024.3.579.2.593 1960 Unknown [id number] 2.16.8 40.1.229023.3.579.2.727 1960 Unknown [id number] 2.16.8 40.1.628158.3.579.2.727 1960 Unknown [id number] 2.16. 840.1.598893.3.579.2.196 1960 Unknown [id number] 2.16. 840.1.343822.3.579.2.196 1960 Unknown [id number] 2.16. 840.1.941431.3.579.2.196 1960 Unknown [id number] 2.16. 840.1.205798.3.579.2.196 1960 Unknown [id number] 2.16. 840.1.592042.3.579.2. 1960 Unknown [id number] 2.16. 840.1.127354.3.579.2.196 1960 Unknown [id number] 2.16. [id number] 1957 Medicare [id number] 1957 Unknown [id number] 1957 Unknown [id number] 1957 Unknown [id number] Unknown [id number] 2.16.8 [id number] Social History Date Type Detail Facility Start: 05-09-2022 Tobacco smoking stat [facility] Smoker (finding) [facility] Start: 1960 Sex Assigned At Female F [facility] Sex Assigned At [facility] Tobacco smoking status No Smokin g Status Entered [facility] Start: 01-12-2024 Tobacco smoking status Heavy t obacco smoker (finding) [facility] Goals Date Patient Goal Desired Activity /State Functional Status Date Assessment Result Facility 01-12-2024 Functional Status N/A [facility] Clinical Notes 05-01-2022 to 01-12-2024 Note Date & Type Note Facility 01-12-2024 Hospital Discharg e instructions Patient Education 01/12/2024 14:25:12 Overactive Bladder, Adult Overactive Bladder, Adult Overactive bladder is a condition in which a person has a sudden and frequent need to urinate. A person might also leak urine if he or she cannot get to the bathroom fast enough (urinary incontinence). Sometimes, symptoms can interfere with work or social activities. What are the causes? Overactive bladder is associated with poor nerve signals between your bladder and your brain. Your bladder may get the signal to empty before it is full. You may also have very sensitive muscles that make your bladder squeeze too soon. This condition may also be caused by other factors, such as: Medical conditions: ?Urinary tract infection. ?Infection of nearby tissues. ?Prostate enlargement. ?Bladder stones, inflammation, or tumors. ?Diabetes. ?Muscle or nerve weakness, especially from these conditions: ?A spinal cord injury. ?Stroke. ?Multiple sclerosis. ?Parkinson's disease. Other causes: ?Surgery on the uterus or urethra. ?Drinking too much caffeine or alcohol. ?Certain medicines, especially those that eliminate extra fluid in the body (diuretics). ?Constipation. What increases the risk? You may be at greater risk for overactive bladder if you: Are an older adult. Smoke. Are going through menopause. Have prostate problems. Have a neurological disease, such as stroke, dementia, Parkinson's disease, or multiple sclerosis (MS). Eat or drink alcohol, spicy food, caffeine, and other things that irritate the bladder. Are overweight or obese. What are the signs or symptoms? Symptoms of this condition include a sudden, strong urge to urinate. Other symptoms include: Leaking urine. Urinating 8 or more times a day. Waking up to urinate 2 or more times overnight. How is this diagnosed? This condition may be diagnosed based on: Your symptoms and medical history. A physical exam. Blood or urine tests to check for possible causes, such as infection. You may also need to see a health care provider who specializes in urinary tract problems. This is called a urologist. How is this treated? Treatment for overactive bladder depends on the cause of your condition and whether it is mild or severe. Treatment may include: Bladder training, such as: ?Learning to control the urge to urinate by following a schedule to urinate at regular intervals. ?Doing Kegel exercises to strengthen the pelvic floor muscles that support your bladder. Special devices, such as: ?Biofeedback. This uses sensors to help you become aware of your body's signals. ?Electrical stimulation. This uses electrodes placed inside the body (implanted) or outside the body. These electrodes send gentle pulses of electricity to strengthen the nerves or muscles that control the bladder. ?Women may use a plastic device, called a pessary, that fits into the vagina and supports the bladder. Medicines, such as: ?Antibiotics to treat bladder infection. ?Antispasmodics to stop the bladder from releasing urine at the wrong time. ?Tricyclic antidepressants to relax bladder muscles. ?Injections of botulinum toxin type A directly into the bladder tissue to relax bladder muscles. Surgery, such as: ?A device may be implanted to help manage the nerve signals that control urination. ?An electrode may be implanted to stimulate electrical signals in the bladder. ?A procedure may be done to change the shape of the bladder. This is done only in very severe cases. Follow these instructions at home: Eating and drinking Make diet or lifestyle changes recommended by your health care provider. These may include: ?Drinking fluids throughout the day and not only with meals. ?Cutting down on caffeine or alcohol. ?Eating a healthy and balanced diet to prevent constipation. This may include: ?Choosing foods that are high in fiber, such as beans, whole grains, and fresh fruits and vegetables. ?Limiting foods that are high in fat and processed sugars, such as fried and sweet foods. Lifestyle Lose weight if needed. Do not use any products that contain nicotine or tobacco. These include cigarettes, chewing tobacco, and vaping devices, such as e-cigarettes. If you need help quitting, ask your health care provider. General instructions Take yywi-qco-ujsbbtp and prescription medicines only as told by your health care provider. If you were prescribed an antibiotic medicine, take it as told by your health care provider. Do not stop taking the antibiotic even if you start to feel better. Use any implants or pessary as told by your health care provider. If needed, wear pads to absorb urine leakage. Keep a log to track how much and when you drink, and when you need to urinate. This will help your health care provider monitor your condition. Keep all follow-up visits. This is important. Contact a health care provider if: You have a fever or chills. Your symptoms do not get better with treatment. Your pain and discomfort get worse. You have more frequent urges to urinate. Get help right away if: You are not able to control your bladder. Summary Overactive bladder refers to a condition in which a person has a sudden and frequent need to urinate. Several conditions may lead to an overactive bladder. Treatment for overactive bladder depends on the cause and severity of your condition. Making lifestyle changes, doing Kegel exercises, keeping a log, and taking medicines can help with this condition. This information is not intended to replace advice given to you by your health care provider. Make sure you discuss any questions you have with your health care provider. Document Revised: 10/29/2020 Document Reviewed: 10/29/2020 [employer] Patient Education 2023 [employer]. Follow Up Care 01/05/2024 13:19:21 With:AMBER MONAHAN, LEIGH Mcleod, URL Address: [address] [place] [address] Business (1) When: only if needed [facility] 01-12-2024 Note Patient Education Obstetrics and Gynecology Overactive Bladder, Adult Overactive bladder is a condition in which a person has a sudden and frequent need to urinate. A person might also leak urine if he or she cannot get to the bathroom fast enough (urinary incontinence). Sometimes, symptoms can interfere with work or social activities. What are the causes? Overactive bladder is associated with poor nerve signals between your bladder and your brain. Your bladder may get the signal to empty before it is full. You may also have very sensitive muscles that make your bladder squeeze too soon. This condition may also be caused by other factors, such as: ??? Medical conditions: ? Urinary tract infection. ? Infection of nearby tissues. ? Prostate enlargement. ? Bladder stones, inflammation, or tumors. ? Diabetes. ? Muscle or nerve weakness, especially from these conditions: ? A spinal cord injury. ? Stroke. ? Multiple sclerosis. ? Parkinson's disease. ??? Other causes: ? Surgery on the uterus or urethra. ? Drinking too much caffeine or alcohol. ? Certain medicines, especially those that eliminate extra fluid in the body (diuretics). ? Constipation. What increases the risk? You may be at greater risk for overactive bladder if you: ??? Are an older adult. ??? Smoke. ??? Are going through menopause. ??? Have prostate problems. ??? Have a neurological disease, such as stroke, dementia, Parkinson's disease, or multiple sclerosis (MS). ??? Eat or drink alcohol, spicy food, caffeine, and other things that irritate the bladder. ??? Are overweight or obese. What are the signs or symptoms? Symptoms of this condition include a sudden, strong urge to urinate. Other symptoms include: ??? Leaking urine. ??? Urinating 8 or more times a day. ??? Waking up to urinate 2 or more times overnight. How is this diagnosed? This condition may be diagnosed based on: ??? Your symptoms and medical history. ??? A physical exam. ??? Blood or urine tests to check for possible causes, such as infection. You may also need to see a health care provider who specializes in urinary tract problems. This is called a urologist. How is this treated? Treatment for overactive bladder depends on the cause of your condition and whether it is mild or severe. Treatment may include: ??? Bladder training, such as: ? Learning to control the urge to urinate by following a schedule to urinate at regular intervals. ? Doing Kegel exercises to strengthen the pelvic floor muscles that support your bladder. ??? Special devices, such as: ? Biofeedback. This uses sensors to help you become aware of your body's signals. ? Electrical stimulation. This uses electrodes placed inside the body (implanted) or outside the body. These electrodes send gentle pulses of electricity to strengthen the nerves or muscles that control the bladder. ? Women may use a plastic device, called a pessary, that fits into the vagina and supports the bladder. ??? Medicines, such as: ? Antibiotics to treat bladder infection. ? Antispasmodics to stop the bladder from releasing urine at the wrong time. ? Tricyclic antidepressants to relax bladder muscles. ? Injections of botulinum toxin type A directly into the bladder tissue to relax bladder muscles. ??? Surgery, such as: ? A device may be implanted to help manage the nerve signals that control urination. ? An electrode may be implanted to stimulate electrical signals in the bladder. ? A procedure may be done to change the shape of the bladder. This is done only in very severe cases. Follow these instructions at home: Eating and drinking ??? Make diet or lifestyle changes recommended by your health care provider. These may include: ? Drinking fluids throughout the day and not only with meals. ? Cutting down on caffeine or alcohol. ? Eating a healthy and balanced diet to prevent constipation. This may include: ? Choosing foods that are high in fiber, such as beans, whole grains, and fresh fruits and vegetables. ? Limiting foods that are high in fat and processed sugars, such as fried and sweet foods. Lifestyle ??? Lose weight if needed. ??? Do not use any products that contain nicotine or tobacco. These include cigarettes, chewing tobacco, and vaping devices, such as e-cigarettes. If you need help quitting, ask your health care provider. General instructions ??? Take nymc-lnq-vhegsmb and prescription medicines only as told by your health care provider. ??? If you were prescribed an antibiotic medicine, take it as told by your health care provider. Do not stop taking the antibiotic even if you start to feel better. ??? Use any implants or pessary as told by your health care provider. ??? If needed, wear pads to absorb urine leakage. ??? Keep a log to track how much and when you drink, and whe (more content not included)... [facility] 01-12-2024 Evaluation + Plan note Diagnostic Tests PendingUrine Culture 01/12/24 [facility] 05-09-2022 Procedure [address] [facility] 05-01-2022 Evaluation note Encounter Date Diagnosis Assessment Notes Apr, Dysphagia (ICD-10 - R13.10) Apr, Weight loss (ICD-10 - R63.4) Apr, Colon cancer screening (ICD-10 - Z12.11) [facility] Other Evaluation + Plan note No data available for this section [facility] evaluation noteNo assessment information available [facility] Work Phone: Evaluation noteNo InformationNort Neck Tie Koozies Other History general Narrative - Reported* Type Description Date Medical History Anxiety/Depression Surgical History Neck surgery Surgical History Tonsillectomy Hospitalization History See above [facility] Other Hospital Discharge instructions Additional Instructions DISCHARGE INSTRUCTIONS [...] NOT operate machinery such as power tools, [employer] mowers, snow blowers, sewing machines, etc. for [...] -Follow up with PCP. - Office number [phone]. [facility] Work Phone: Hospital Discharge instructions No data available for this section [facility] progress note No data available for this section [facility] Chief Complaint and Reason for Visit [...] ized section and content) DATE CREATED AUTHOR 07/02/2022 [facility] DATE CREATED AUTHOR AUTHOR'S ORGANIZ ATION 01/15/2024 [facility] DATE CREATED AUTHOR AUTHOR'S ORGANIZ ATION 01/17/[address] [facility] DATE CREATED AUTHOR AUTHOR'S ORGANIZ ATION 02/06/2024 [facility] DATE CREATED AUTHOR AUTHOR'S ORGANIZ ATION 02/11/[address] [facility] DATE CREATED AUTHOR AUTHOR'S ORGANIZ ATION 02/17/2024 [facility] FOR RECORDS PERTAINING TO PATIENTS WHO [...] BE BASED ON THE PRIMARY CLINICAL RECORDS. [employer] [facility]. provides no warranty or guarantee of the accuracy or completeness of information in this document.
[2024-03-21 13:04] LABS: Hemoglobin 13.9 g/dL (12.0-16.0)
--- NOTE | 2024-03-21 13:24 | RT_ITS ---
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 Findings were considered accurate and reproducible. Both pre- and post-bronchodilator values utilized for spirometry. Spirometry (based on pre-bronchodilator values): -FEV1/FVC: Reduced @ 62% -FEV1: Moderately-severely reduced @ 50% -FVC: Reduced @ 63% -ZMT73-38%: Reduced @ 29% -There is a positive bronchodilator resposne in EEP13-91%, but diagnostic and clinical significance is unclear. Lung volumes by plethysmography: -RV: Increased @ 153% -TLC: Normal @ 103% Diffusion capacity: -DLCO: Moderate reduction @ 63% when corrected for Hb 13.9g/dL Impressions: -Spirometry suggests moderately-severe obstruction. There is no bronchodilator response. An elevated RV suggests air trapping. There is a moderately reduced diffusion capacity. Overall study is compatible with COPD/emphysema. Clinical correlation required. Electronically Signed On 03-22-2024 16:25:34 EST by Arvin Joseph
[2024-03-21] MEDS: ALBUTEROL SULFATE 2.5 MG/3 ML VIAL NEB IH (13:55)
--- NOTE | 2024-03-21 14:05 | CT_ITS ---
[address] [address] Patient Name: CARLA ABDI MRN: [id number] date: 1960 Sex: F Assigned Patient Location: CARD Current Patient Location: Accession/Order Number: [id number] Exam Date: 03/21/2024 14:45 Report Date: 03/22/2024 05:50 At the request of: MINERVA QUINTANA Procedure: CT chest high res EXAMINATION: CT chest high res HISTORY: Abnormal CT Scan Lung COMPARISON: No relevant comparison available. TECHNIQUE: Axial images were obtained at 10 mm intervals during inspiration and expiration in the supine and prone positions. No IV contrast given. Dose reduction techniques were achieved by using automated exposure control and/or adjustment of mA and/or kV according to patient size and/or use of iterative reconstruction technique. FINDINGS: LUNGS: Small amount of atelectasis or less likely infiltrates within anterior inferior lingula. No air trapping, significant chronic interstitial changes, or bronchial dilation or wall thickening. PLEURA: No mass, effusion, or pneumothorax. AMIRAH: No mass or adenopathy. MEDIASTINUM: No mass or adenopathy. HEART: No significant enlargement or pericardial effusion.. Coronary arteries: Mild AORTA: No aneurysm.. CHEST WALL: No mass or axillary adenopathy LIMITED ABDOMEN: No suspicious findings. Limited images of the upper abdomen. OTHER: Negative. CT/CT chest high res IMPRESSION: 1. Trace amount of atelectasis or possibly infiltrates within lingula. 2. No significant chronic interstitial changes. Electronically authenticated by: DENNY RINCON Date: 03/22/2024 05:50
== END 2024-03-21 12:46 | disposition home or self-care (01) ==
PROVIDERS: PCP Nurse Practitioner Family; Visit Provider Internal Medicine
DX: R91.8 Other nonspecific abnormal finding of lung field (principal); J43.8 Other emphysema
CPT/HCPCS: 36415; 71250; 85018; 94060; 94726; 94729

== ENCOUNTER 2024-03-23 12:51 | Outpatient (OUT) | payer MEDICARE, OTHER, MEDICAID, SELFPAY ==
--- OUTSIDE RECORDS SUMMARY | 2024-03-23 13:13 | XMS_ITS | CCD ---
Author Organization [facility] Care Team Providers Care Education Adviser Name Role Phone MD Nesha Bryant Attending Provider JIE Edwards Primary Care Provider Nesha Bryant Unavailable AMA EDWARDS Attending Unavailable AMA EDWARDS Consulting Unavailable JERRY, [...] Medication Allergies] Propensity to adverse reactions (disorder) [facility] Medications Current Medications Medication Drug Class(es) [...] Ordered Start: 05-12-2022 take 1 capsule by [facility] once daily Omeprazole 40 MG 1 capsule 30 minutes before morning meal Orally Once a day for 30 days Apr, Active 12 hr orphenadrine citrate 100 mg extended release oral tablet (2 sources) Muscle Relaxant Start: 01-12-2024 orphenadrine 1 00 mg ER Tab 100 mg = 1 tab(s) Start Date: 01/12/24 Status: Ordered polyethylene glycol 3350 372457 mg / potassium chloride 2970 mg / sodium bicarbonate 6740 mg / sodium chloride 5860 mg / sodium sulfate 63813 mg powder for oral solution (2 sources) [...] Test Name Value Interpretation Reference Range Facility [facility] 02-02-2024 L --- Specimen: [id number] Received: 02/03/24 Status: EDUARD Zaragoza Num: [id number] Spec Type: Surgical Subm Dr: Jose Matos MD Tissues: A Breast Core CALCIFICATIONS (RIGHT BREAST MICRO CALCIFICA) Procedures: ROSI/Sanya Ibrahim/Lindsay L4 Age/ Patient Sex Location Account Attending Physician Nancy Joyce 63/F LABELL [id number] Ama Edwards CNP SPEC NUM: [id number] RECD: 02/03/24 STATUS: EDUARD ZARAGOZA NUM: [id number] KATY: 02/02/[address]: Jose Matos MD ENTERED: 02/03/[address] [facility] [address]: Keyur,Lab Ama Edwards, [employer] SERVER SPEC TYPE: Surgical DEPT: RAMYA LOWE ENTERED BY: [id number] RECV BY: [id number] ORDERED: HE/6, Gross/Micro L4 ORDERED: HE/6, Gross/Micro [...] 28 hours and 30 minutes (3, ns, [id number] A) GLENN Specimen: [id number] Received: 02/03/24 Status: EDUARD Nik Num: [id number] Spec Type: Surgical Subm Dr: Jose Matos MD Tissues: A Breast Core CALCIFICATIONS (RIGHT BREAST MICRO CALCIFICA) Procedures: HE/6, Gross/Micro L4 Patient: Nancy Joyce [id number] (Continued) Specimen: [id number] Received: 02/03/24 (Continued) Signed (signature on file) Glenn Rogel MD 02/04/24 1105 Specimen: [id number] Received: 02/03/24 Status: EDUARD Zaragoza Num: [id number] Spec Type: Surgical Subm Dr: Jose Matos MD Tissues: A Breast Core CALCIFICATIONS (RIGHT BREAST MICRO CALCIFICA) Procedures: HE/6, Sanya/Lindsay L4 Patient: Nancy Joyce Nuria [id number] (Continued) Specimen: [id number] Received: 02/03/24 (Continued) Microscopic Description Microscopic examination is performed. CPT Codes 97009 Specimen: [id number] Received: 02/03/24 Status: EDUARD Zaragoza Num: [id number] Spec Type: Surgical Subm Dr: Jose Matos MD Tissues: A Breast Core CALCIFICATIONS (RIGHT BREAST MICRO CALCIFICA) Procedures: HE/6, Gross/Micro L4 Patient: Nancy Joyce [id number] (Continued) Signed (signature on file) Glenn Rogel MD 02/04/24 1105 Normal [facility] C Urineon 01-14-2024 Bacteria [...] Locations R1: [facility] performed at[facility] [address] [place] [address], [facility]- , [place], Normal [facility] Comment on above: Performed By: #### 2 [id number] #### [facility] [address] [place] [address] URINALYSISOrdered By: SYSTEM SYSTEM on 01-12-2024 Bilirubin [...] that meet specific criteria set forth by [facility]. Glucose Ql (U) Negative Normal Negativemg/d L [facility] UA Auto SS Hemoglobin Auto test strip (U) [Mass/Vol] Trace mg/dL Invalid Interpretation Code Negativemg/d L [facility] [place] UA Auto SS Ketones Auto test strip Ql (U) Negative Normal Negativemg/d L [facility] [place] UA Auto SS Leukocyte esterase Auto test strip Ql (U) Negative Normal NegativeLeu/ uL [facility] [place] UA Auto SS Nitrite Auto test strip Ql (U) Negative Normal Negativemg/d L [facility] [place] UA Auto SS pH (U) 5.0 *NA* (01/12/24 2:07 PM) Invalid Interpretation Code 5.0 - 9.0 [facility] [place] UA Auto SS Protein Ql (U) Negative Normal Negativemg/d L [facility] [place] UA Auto SS Specific gravity (U) [Rel density] 1.012 *NA* (01/12/24 2:07 PM) Invalid Interpretation Code 1.005 - 1.030 [facility] [place] UA Auto SS Urobilinogen (U) [Mass/Vol] Negative Normal Negativemg/d L [facility] [place] UA Auto SS URINALYSISOrdered By: Alexandra Godoy on 01-12-2024 UA Spec Desc Random Urine (01/12/24 2:07 PM) Normal [facility] [place] UA Auto SS Urinalysis with Microon 12-24 Bilirubin Ql (U) Negative Normal Negative [facility] Comment on above: Performed By: #### 4 [id number] #### [facility] [address] [place] [address] Clarity (U) Clear Normal Clear [facility] Comment on above: Performed By: #### 4 [id number] #### [facility] [address] [place] [address] Color (U) Yellow Normal Yellow [facility] Comment on above: Result Comment: Micr oscopic readings are only performed on those samples that meet specific criteria set forth by [facility]. Performed By: #### 4 [id number] #### [facility] [address] [place] [address] Glucose Ql (U) Negative Normal Negative [facility] Comment on above: Performed By: #### 4 [id number] #### [facility] [address] [place] [address] Hemoglobin Auto test strip (U) [Mass/Vol] Trace Abnormal Negative [facility] Comment on above: Performed By: #### 4 [id number] #### [facility] [address] [place] [address] Ketones Auto test strip Ql (U) Negative Normal Negative [facility] Comment on above: Performed By: #### 4 [id number] #### [facility] [address] [place] [address] Leukocyte esterase Auto test strip Ql (U) Negative Normal Negative [facility] Comment on above: Performed By: #### 4 [id number] #### [facility] [address] [place] [address] Nitrite Auto test strip Ql (U) Negative Normal Negative [facility] Comment on above: Performed By: #### 4 [id number] #### [facility] [address] [place] [address] pH (U) 5.0 [pH] Invalid Interpretation Code 5.0-9.0 [facility] Comment on above: Performed By: #### 4 [id number] #### [facility] [address] [place] [address] Protein Ql (U) Negative Normal Negative [facility] Comment on above: Performed By: #### 4 [id number] #### [facility] [address] [place] [address] Specific gravity (U) [Rel density] 1.012 Invalid Interpretation Code 1.005-1.030 [facility] Comment on above: Performed By: #### 4 [id number] #### [facility] [address] [place] [address] Urobilinogen (U) [Mass/Vol] Negative Normal Negative [facility] Comment on above: Performed By: #### 4 [id number] #### [facility] [address] [place] [address] Type of Urine collection method Random Urine Normal [facility] Comment on above: Performed By: #### 4 [id number] #### [facility] [address] [place] [address] Urology Office/Clinic Noteon 01-12-2024 Urology Office/Clinic Note [...] E&M of New Patient Moderate 45-59 Min 59741 2. Asymptomatic microscopic hematuria (R31.21: Asymptomatic microscopic [...] E&M of New Patient Moderate 45-59 Min 95581 Orders: [id number] Measure Post Void residual urine and/or bladder capacity by US- non-imaging Urinalysis with Micro Urine Culture Urnls Dip Stick Auto w/o Microscopy POC 37729 Follow-up With When Contact Information AMBER MONAHAN, LEIGH Mcleod, URL Only if needed [address] [place] [address] Business (1) Additional Instructions: Patient [...] Dipstick: Negativ (more content not included)... Normal [facility] Comment on above: Result Comment: Elec tronically [...] by: JOSE MATOS Date: 2022-03-25 13:53 Normal [facility] INSULINon 03-13-2022 Insulin 3.9 uIU/mL Normal 2.6-24.9 [facility] Comment on above: Performed By: #### O BSCRN #### [facility] [address] [place] [address] Dr. Ambrosio Ramirez XR CSPINE MIN 4 [...] JOSE MATOS Date: 2022-03-13 08:09 Normal [facility] CBC AUTO DIFFon 03-12-2022 BASO # 0.0 103/ul Normal 0.0-0.1 [facility] Comment on above: Performed By: #### C BC #### [facility] [address] [place] [address] Dr. Ambrosio Ramirez Basophils/100 WBC (Bld) 0.7 % Normal 0.2-2.0 [facility] Comment on above: Performed By: #### C BC #### [facility] [address] [place] [address] Dr. Ambrosio Ramirez EO # 0.1 103/ul Normal 0.0-0.7 [facility] Comment on above: Performed By: #### C BC #### [facility] [address] [place] [address] Dr. Ambrosio Ramirez Eosinophils/100 WBC (Bld) 0.9 % Normal 0.9-7.0 [facility] Comment on above: Performed By: #### C BC #### [facility] [address] [place] [address] Dr. Ambrosio Ramirez Erythrocyte distribution width (RBC) [Ratio] 12.3 % Normal 11.0-15.0 [facility] Comment on above: Performed By: #### C BC #### [facility] [address] [place] [address] Dr. Ambrosio Ramirez Hematocrit (Bld) [Volume fraction] 46.0 % Normal 36.0-48.0 [facility] Comment on above: Performed By: #### C BC #### [facility] [address] [place] [address] Dr. Ambrosio Ramirez Hemoglobin (Bld) [Mass/Vol] 15.2 g/dL Normal 12.0-16.0 [facility] Comment on above: Performed By: #### C BC #### [facility] [address] [place] [address] Dr. Ambrosio Ramirez IG # 0.03 10e3/ul Normal 0.00-0.03 [facility] Comment on above: Performed By: #### C BC #### [facility] [address] [place] [address] Dr. Ambrosio Ramirez IG % 0.5 % Normal 0.0-0.5 [facility] Comment on above: Performed By: #### C BC #### [facility] [address] [place] [address] Dr. Ambrosio Ramirez LYMPH # 2.0 103/ul Normal 1.2-3.8 [facility] Comment on above: Performed By: #### C BC #### [facility] [address] [place] [address] Dr. Ambrosio Ramirez Lymphocytes/100 WBC (Bld) 35.0 % Normal 20.5-60.0 [facility] Comment on above: Performed By: #### C BC #### [facility] [address] [place] [address] Dr. Ambrosio Ramirez MANUAL DIFF REQ NO Normal [facility] Comment on above: Performed By: #### C BC #### [facility] [address] [place] [address] Dr. Ambrosio Ramirez MCH (RBC) [Entitic mass] 33.8 pg Normal 26.7-34.0 [facility] Comment on above: Performed By: #### C BC #### [facility] [address] [place] [address] Dr. Ambrosio Ramirez MCHC (RBC) [Mass/Vol] 33.0 g/dL Normal 29.9-35.2 [facility] Comment on above: Performed By: #### C BC #### [facility] [address] [address] [address] Ambrosio Ramirez MCV (RBC) [Entitic vol] 102.2 fL Critically high 81.0-99.0 [facility] Comment on above: Performed By: #### C BC #### [facility] [address] [address] [address] Ambrosio Ramirez MONO # 0.4 103/ul Normal 0.3-0.8 [facility] Comment on above: Performed By: #### C BC #### [facility] [address] [address] [address] Ambrosio Ramirez Monocytes/100 WBC (Bld) 7.2 % Normal 1.7-12.0 [facility] Comment on above: Performed By: #### C BC #### [facility] [address] [place] [address] Dr. Ambrosio Ramirez NEUT # 3.2 103/ul Normal 1.4-6.5 [facility] Comment on above: Performed By: #### C BC #### [facility] [address] [place] [address] Dr. Ambrosio Ramirez Neutrophils/100 WBC (Bld) 55.7 % Normal 43.0-75.0 [facility] Comment on above: Performed By: #### C BC #### [facility] [address] [place] [address] Dr. Ambrosio Ramirez Platelet mean volume (Bld) [Entitic vol] 9.1 fL Critically low 9.5-13.5 [facility] Comment on above: Performed By: #### C BC #### [facility] [address] [place] [address] Dr. Ambrosio Ramirez PLT 234 103/ul Normal 150-450 [facility] Comment on above: Performed By: #### C BC #### [facility] [address] [place] [address] Dr. Ambrosio Ramirez RBC 4.50 106/ul Normal 4.20-5.40 [facility] Comment on above: Performed By: #### C BC #### [facility] [address] [address] [address] Ambrosio Ramirez WBC 5.7 103/ul Normal 4.0-11.0 [facility] Comment on above: Performed By: #### C BC #### [facility] [address] [address] [address] Ambrosio Ramirez FREE THYROXINE INDEX T7on FTI 2.41 Normal 1.30-4.50 [facility] Comment on above: Performed By: #### A 1C #### [facility] [address] [place] [address] Dr. Ambrosio Ramirez T3U 33.0 % Normal 30.0-39.0 [facility] Comment on above: Performed By: #### A 1C #### [facility] [address] [place] [address] Dr. Ambrosio Ramirez T4 [Mass/Vol] 7.30 ug/dL Normal 4.80-13.90 [facility] Comment on above: Performed By: #### A 1C #### [facility] [address] [place] [address] Dr. Ambrosio Ramirez GLYCOHEMOGLOBIN A1Con 2022 ADA RECOMMENDATION SEE BELOW Normal [facility] Comment on above: Result Comment: ADA RECOMMENDED LIMIT 4.0 - 6.0 ADA THERAPEUTIC TARGET < 7.0 ACTION SUGGESTED > 7.0 Performed By: #### A 1C #### [facility] [address] [place] [address] Dr. Ambrosio Ramirez Glucose [Mass/Vol] 100 mg/dL Normal [facility] Comment on above: Performed By: #### A 1C #### [facility] [address] [place] [address] Dr. Ambrosio Ramirez HbA1c (Bld) [Mass fraction] 5.1 % Normal 4.5-6.2 [facility] Comment on above: Performed By: #### A 1C #### [facility] [address] [place] [address] Dr. Ambrosio Ramirez IRONon 03-12-2022 Iron [Mass/Vol] 148.0 ug/dL Normal 50.0-170.0 [facility] Comment on above: Performed By: #### O BSCRN #### [facility] [address] [address] [address] Ambrosio Ramirez LIPID PROFILEon 03-12-2022 CHOL-HDL RATIO NORM SEE BELOW Normal [facility] Comment on above: Result Comment: 3.3 - 4.4 LOW RISK 4.4 - 7.1 AVERAGE RISK 7.1 - 11.0 MODERATE RISK >11.0 HIGH RISK Performed By: #### A 1C #### [facility] [address] [address] [address] Ambrosio Ramirez Cholesterol [Mass/Vol] 234 mg/dL Critically high <=200 [facility] Comment on above: Performed By: #### A 1C #### [facility] [address] [address] [address] Ambrosio Ramirez Cholesterol in HDL [Mass/Vol] 71 mg/dL Critically high 40-60 [facility] Comment on above: Performed By: #### A 1C #### [facility] [address] [address] [address] Ambrosio Ramirez Cholesterol in LDL [Mass/Vol] 132.4 mg/dL Normal [facility] Comment on above: Performed By: #### A 1C #### [facility] [address] [address] [address] Ambrosio Ramirez Cholesterol.total/Cho lesterol in HDL [Mass ratio] 3.3 {ratio} Normal [facility] Comment on above: Performed By: #### A 1C #### [facility] [address] [address] [address] Ambrosio Ramirez HDL NORMAL > or = 60 mg/dl - LO W CARDIOVASCULAR RISK <40 mg/dl - HIGH CARDIOVASCULAR RISK Normal [facility] Comment on above: Performed By: #### A 1C #### [facility] [address] [address] [address] Ambrosio Ramirez LDL CALC NORMAL SEE BELOW Normal [facility] Comment on above: Result Comment: <100 mg/dl OPTIMAL 100 - 129 mg/dl NEAR OR ABOVE OPTIMAL 130 - 159 mg/dl BORDERLINE HIGH 160 - 189 mg/dl HIGH >190 mg/dl VERY HIGH Performed By: #### A 1C #### [facility] [address] [address] [address] Ambrosio Ramirez Triglyceride [Mass/Vol] 153 mg/dL Critically high <=150 [facility] Comment on above: Performed By: #### A 1C #### [facility] [address] [address] [address] Ambrosio Ramirez VLDL CALC 30.6 mg/dL Normal [facility] Comment on above: Performed By: #### A 1C #### [facility] [address] [address] [address] Ambrosio Ramirez PROF 14(COMP METB)on 023 Albumin [Mass/Vol] 4.2 g/dL Normal 3.4-5.0 [facility] Comment on above: Performed By: #### A 1C #### [facility] [address] [address] [address] Ambrosio Ramirez Albumin/Globulin [Mass ratio] 1.3 {ratio} Normal [facility] Comment on above: Performed By: #### A 1C #### [facility] [address] [address] [address] Ambrosio Ramirez ALP [Catalytic activity/Vol] 62 U/L Normal 46-116 [facility] Comment on above: Performed By: #### A 1C #### [facility] [address] [place] [address] Dr. Ambrosio Ramirez ALT [Catalytic activity/Vol] 27 U/L Normal 14-59 [facility] Comment on above: Performed By: #### A 1C #### [facility] [address] [address] [address] Ambrosio Ramirez Anion gap [Moles/Vol] 12.8 mmol/L Normal [facility] Comment on above: Performed By: #### A 1C #### [facility] [address] [address] [address] Ambrosio Ramirez AST [Catalytic activity/Vol] 39 U/L Critically high 15-37 [facility] Comment on above: Performed By: #### A 1C #### [facility] [address] [address] [address] Ambrosio Ramirez Bilirubin [Mass/Vol] 0.4 mg/dL Normal 0.2-1.0 [facility] Comment on above: Performed By: #### A 1C #### [facility] [address] [address] [address] Ambrosio Ramirez Calcium [Mass/Vol] 9.1 mg/dL Normal 8.5-10.1 [facility] Comment on above: Performed By: #### A 1C #### [facility] [address] [address] [address] Ambrosio Ramirez Chloride [Moles/Vol] 103 mmol/L Normal 98-107 [facility] Comment on above: Performed By: #### A 1C #### [facility] [address] [place] [address] Dr. Ambrosio Ramirez CO2 [Moles/Vol] 30.5 mmol/L Normal 21.0-32.0 [facility] Comment on above: Performed By: #### A 1C #### [facility] [address] [place] [address] Dr. Ambrosio Ramirez Creatinine [Mass/Vol] 0.54 mg/dL Critically low 0.55-1.02 [facility] Comment on above: Performed By: #### A 1C #### [facility] [address] [place] [address] Dr. Ambrosio Ramirez EGFR-AF ROMANIAN >60 Normal >=60 [facility] Comment on above: Performed By: #### A 1C #### [facility] [address] [place] [address] Dr. Ambrosio Ramirez EGFR-NON AF ROMANIAN >60 Normal >=60 [facility] Comment on above: Performed By: #### A 1C #### [facility] [address] [place] [address] Dr. Ambrosio Ramirez Globulin (S) [Mass/Vol] 3.3 g/dL Normal [facility] Comment on above: Performed By: #### A 1C #### [facility] [address] [place] [address] Dr. Ambrosio Ramirez Glucose [Mass/Vol] 88 mg/dL Normal 74-106 [facility] Comment on above: Performed By: #### A 1C #### [facility] [address] [address] [address] Ambrosio Ramirez Potassium [Moles/Vol] 4.3 mmol/L Normal 3.5-5.1 [facility] Comment on above: Performed By: #### A 1C #### [facility] [address] [address] [address] Ambrosio Ramirez Protein [Mass/Vol] 7.5 g/dL Normal 6.4-8.2 [facility] Comment on above: Performed By: #### A 1C #### [facility] [address] [place] [address] Dr. Ambrosio Ramirez Sodium [Moles/Vol] 142 mmol/L Normal 136-145 [facility] Comment on above: Performed By: #### A 1C #### [facility] [address] [address] [address] Ambrosio Ramirez Urea nitrogen [Mass/Vol] 9.0 mg/dL Normal 7.0-18.0 [facility] Comment on above: Performed By: #### A 1C #### [facility] [address] [place] [address] Dr. Ambrosio Ramirez Urea nitrogen/Creatinine [Mass ratio] 16.7 mg/mg Normal [facility] Comment on above: Performed By: #### A 1C #### [facility] [address] [place] [address] Dr. Ambrosio Ramirez TSHon 03-12-2022 TSH 1.934 uIU/mL Normal 0.358-3.740 [facility] Comment on above: Performed By: #### A 1C #### [facility] [address] [place] [address] Dr. Ambrosio Ramirez XR TSPINE 3 VIEWSon [...] Date: 2022-03-12 17:07 Normal [facility] Covid-19 PCR (CVDTB)on SARS-CoV-2 (COVID-19) RNA JAYY+probe Ql (Unsp spec) Not detected Normal NOT DETECTED [facility] Comment on above: Result Comment: [...] for this test is supported by the [place] of [employer] and Human Service's declaration that [...] used). Performed By: #### C VDTB #### [facility] [address] [place] [address] Dr. Ambrosio Ramirez INFLUENZA A AND B AGon 01-27 INFLUENZA A AG Negative Normal NEGATIVE SEE COMMENT [facility] Comment on above: Performed By: #### I NFLUAB #### [facility] [address] [place] [address] Dr. Ambrosio Ramirez INFLUENZA B AG Negative Normal NEGATIVE SEE COMMENT [facility] Comment on above: Performed By: #### I NFLUAB #### [facility] [address] [place] [address] Dr. Ambrosio Ramirez INTERNAL CONTROLS Within Normal Limits Normal Wi thin Normal Limits [facility] Comment on above: Performed By: #### I NFLUAB #### [facility] [facility] [address] [id number] [address] Ambrosio Ramirez XR CHEST 2 Von [...] Date: 2022-01-27 14:42 Normal [facility] RPR QUANTon 08-26-2021 Rapid Plasma Reagin, Quant Non-Reactive Normal NonRea<1:1 [facility] Comment on above: Result Comment: Plea se Note: This test does not meet current guidelines for screening and diagnosis of syphilis. This test is intended for following treatment response in patients being treated for syphilis infection. To screen for syphilis infection, a reflex cascade that includes both RPR and a treponema-specific assay should be utilized, such as Treponema pallidum (Syphilis) Screening [place] (252827) or Rapid Plasma Reagin (RPR) Test With Reflex to Quantitative RPR and Confirmatory Treponema pallidum Antibodies ([id number]). Performed By: #### R PRQ #### [facility] [address] [place] [address] Dr. Ambrosio Ramirez HEP B SURFACE ANTIGEN SCREEN on 08-24-2021 HBsAg Screen Negative Normal Negative [facility] Comment on above: Performed By: #### H BSANS #### [facility] [address] [place] [address] Dr. Ambrosio Ramirez HEPATITIS C ANTIBODYon 08-24 Hep C Virus Ab <0.1 Normal 0.0-0.9 [facility] Comment on above: Result [...] Hepatitis C Virus (HCV) RNA, Diagnosis, JAYY (320070) and Hepatitis C Virus (HCV) Antibody with reflex to Quantitative Real-time PCR ([id number]). Performed By: #### H CV #### [facility] [address] [place] [address] Dr. Ambrosio Ramirez INSULINon 08-23-2021 Insulin 5.0 uIU/mL Normal 2.6-24.9 [facility] Comment on above: Performed By: #### A 1C #### [facility] [address] [place] [address] Dr. Ambrosio Ramirez OCC BLD IMMUNO SCREENon OCCULT BLOOD Negative Normal NEGATIVE [facility] Comment on above: Performed By: #### O BSCRN #### [facility] [address] [place] [address] Dr. Ambrosio Ramirez CBC AUTO DIFFon 08-22-2021 BASO # 0.1 103/ul Normal 0.0-0.1 [facility] Comment on above: Performed By: #### O BSCRN #### [facility] [address] [place] [address] Dr. Ambrosio Ramirez Basophils/100 WBC (Bld) 1.0 % Normal 0.2-2.0 [facility] Comment on above: Performed By: #### O BSCRN #### [facility] [address] [place] [address] Dr. Ambrosio Ramirez EO # 0.1 103/ul Normal 0.0-0.7 [facility] Comment on above: Performed By: #### O BSCRN #### [facility] [address] [place] [address] Dr. Ambrosio Ramirez Eosinophils/100 WBC (Bld) 1.8 % Normal 0.9-7.0 [facility] Comment on above: Performed By: #### O BSCRN #### [facility] [address] [place] [address] Dr. Ambrosio Ramirez Erythrocyte distribution width (RBC) [Ratio] 11.9 % Normal 11.0-15.0 [facility] Comment on above: Performed By: #### O BSCRN #### [facility] [address] [place] [address] Dr. Ambrosio Ramirez Hematocrit (Bld) [Volume fraction] 48.6 % Critically high 36.0-48.0 [facility] Comment on above: Performed By: #### O BSCRN #### [facility] [address] [place] [address] Dr. Ambrosio Ramirez Hemoglobin (Bld) [Mass/Vol] 16.3 g/dL Critically high 12.0-16.0 [facility] Comment on above: Performed By: #### O BSCRN #### [facility] [address] [place] [address] Dr. Ambrosio Ramirez IG # 0.03 10e3/ul Normal 0.00-0.03 [facility] Comment on above: Performed By: #### O BSCRN #### [facility] [address] [place] [address] Dr. Ambrosio Ramirez IG % 0.6 % Critically high 0.0-0.5 [facility] Comment on above: Performed By: #### O BSCRN #### [facility] [address] [place] [address] Dr. Ambrosio Ramirez LYMPH # 2.4 103/ul Normal 1.2-3.8 [facility] Comment on above: Performed By: #### O BSCRN #### [facility] [address] [place] [address] Dr. Ambrosio Ramirez Lymphocytes/100 WBC (Bld) 46.9 % Normal 20.5-60.0 [facility] Comment on above: Performed By: #### O BSCRN #### [facility] [address] [place] [address] Dr. Ambrosio Ramirez MANUAL DIFF REQ NO Normal [facility] Comment on above: Performed By: #### O BSCRN #### [facility] [address] [place] [address] Dr. Ambrosio Ramirez MCH (RBC) [Entitic mass] 34.9 pg Critically high 26.7-34.0 [facility] Comment on above: Performed By: #### O BSCRN #### [facility] [address] [place] [address] Dr. Ambrosio Ramirez MCHC (RBC) [Mass/Vol] 33.5 g/dL Normal 29.9-35.2 [facility] Comment on above: Performed By: #### O BSCRN #### [facility] [address] [place] [address] Dr. Ambrosio Ramirez MCV (RBC) [Entitic vol] 104.1 fL Critically high 81.0-99.0 [facility] Comment on above: Performed By: #### O BSCRN #### [facility] [address] [place] [address] Dr. Ambrosio Ramirez MONO # 0.4 103/ul Normal 0.3-0.8 [facility] Comment on above: Performed By: #### O BSCRN #### [facility] [address] [place] [address] Dr. Ambrosio Ramirez Monocytes/100 WBC (Bld) 8.2 % Normal 1.7-12.0 [facility] Comment on above: Performed By: #### O BSCRN #### [facility] [address] [place] [address] Dr. Ambrosio Ramirez NEUT # 2.1 103/ul Normal 1.4-6.5 [facility] Comment on above: Performed By: #### O BSCRN #### [facility] [address] [place] [address] Dr. Ambrosio Ramirez Neutrophils/100 WBC (Bld) 41.5 % Critically low 43.0-75.0 [facility] Comment on above: Performed By: #### O BSCRN #### [facility] [address] [place] [address] Dr. Ambrosio Ramirez Platelet mean volume (Bld) [Entitic vol] 9.3 fL Critically low 9.5-13.5 [facility] Comment on above: Performed By: #### O BSCRN #### [facility] [address] [place] [address] Dr. Ambrosio Ramirez PLT 210 103/ul Normal 150-450 [facility] Comment on above: Performed By: #### O BSCRN #### [facility] [address] [place] [address] Dr. Ambrosio Ramirez RBC 4.67 106/ul Normal 4.20-5.40 [facility] Comment on above: Performed By: #### O BSCRN #### [facility] [address] [place] [address] Dr. Ambrosio Ramirez WBC 5.0 103/ul Normal 4.0-11.0 [facility] Comment on above: Performed By: #### O BSCRN #### [facility] [address] [place] [address] Dr. Ambrosio Ramirez FREE THYROXINE INDEX T7on FTI 2.72 Normal 1.30-4.50 [facility] Comment on above: Performed By: #### O BSCRN #### [facility] [address] [place] [address] Dr. Ambrosio Ramirez T3U 32.0 % Normal 30.0-39.0 [facility] Comment on above: Performed By: #### O BSCRN #### [facility] [address] [place] [address] Dr. Ambrosio Ramirez T4 [Mass/Vol] 8.50 ug/dL Normal 4.80-13.90 [facility] Comment on above: Performed By: #### O BSCRN #### [facility] [address] [place] [address] Dr. Ambrosio Ramirez GLYCOHEMOGLOBIN A1Con 2021 ADA RECOMMENDATION SEE BELOW Normal [facility] Comment on above: Result Comment: ADA RECOMMENDED LIMIT 4.0 - 6.0 ADA THERAPEUTIC TARGET < 7.0 ACTION SUGGESTED > 7.0 Performed By: #### A 1C #### [facility] [address] [place] [address] Dr. Ambrosio Ramirez Glucose [Mass/Vol] 108 mg/dL Normal [facility] Comment on above: Performed By: #### A 1C #### [facility] [address] [address] [address] Ambrosio Ramirez HbA1c (Bld) [Mass fraction] 5.4 % Normal 4.5-6.2 [facility] Comment on above: Performed By: #### A 1C #### [facility] [address] [address] [address] Ambrosio Ramirez HIV 1/2 RAPID (EXPOSURE ONLY )on 08-22-2021 HIV AB Negative Normal [facility] Comment on above: Performed By: #### A 1C #### [facility] [address] [address] [address] Ambrosio Ramirez HIV AG Negative Normal [facility] Comment on above: Performed By: #### A 1C #### [facility] [address] [address] [address] Ambrosio Ramirez INTERNAL CONTROLS Within Normal Limits Normal Wi thin Normal Limits [facility] Comment on above: Performed By: #### A 1C #### [facility] [address] [address] [address] Ambrosio Ramirez RAPID HIV INFO SEE BELOW Normal [facility] Comment on above: Result Comment: This test is used for the initial screening of the exposure source. Confirmation of all results will be obtained through reference lab testing. Performed By: #### A 1C #### [facility] [address] [place] [address] Dr. Ambrosio Ramirez IRONon 08-22-2021 Iron [Mass/Vol] 137.0 ug/dL Normal 50.0-170.0 [facility] Comment on above: Performed By: #### I HAMLET #### [facility] [address] [place] [address] Dr. Ambrosio Ramirez LIPID PROFILEon 08-22-2021 CHOL-HDL RATIO NORM SEE BELOW Normal [facility] Comment on above: Result Comment: 3.3 - 4.4 LOW RISK 4.4 - 7.1 AVERAGE RISK 7.1 - 11.0 MODERATE RISK >11.0 HIGH RISK Performed By: #### O BSCRN #### [facility] [address] [place] [address] Dr. Ambrosio Ramirez Cholesterol [Mass/Vol] 251 mg/dL Critically high <=200 [facility] Comment on above: Performed By: #### O BSCRN #### [facility] [address] [address] [address] Ambrosio Ramirez Cholesterol in HDL [Mass/Vol] 67 mg/dL Critically high 40-60 [facility] Comment on above: Performed By: #### O BSCRN #### [facility] [address] [address] [address] Ambrosio Ramirez Cholesterol in LDL [Mass/Vol] 154.8 mg/dL Normal [facility] Comment on above: Performed By: #### O BSCRN #### [facility] [address] [address] [address] Ambrosio Ramirez Cholesterol.total/Cho lesterol in HDL [Mass ratio] 3.7 {ratio} Normal [facility] Comment on above: Performed By: #### O BSCRN #### [facility] [address] [address] [address] Ambrosio Ramirez HDL NORMAL > or = 60 mg/dl - LO W CARDIOVASCULAR RISK <40 mg/dl - HIGH CARDIOVASCULAR RISK Normal [facility] Comment on above: Performed By: #### O BSCRN #### [facility] [address] [address] [address] Ambrosio Ramirez LDL CALC NORMAL SEE BELOW Normal [facility] Comment on above: Result Comment: <100 mg/dl OPTIMAL 100 - 129 mg/dl NEAR OR ABOVE OPTIMAL 130 - 159 mg/dl BORDERLINE HIGH 160 - 189 mg/dl HIGH >190 mg/dl VERY HIGH Performed By: #### O BSCRN #### [facility] [address] [address] [address] Ambrosio Ramirez Triglyceride [Mass/Vol] 146 mg/dL Normal <=150 [facility] Comment on above: Performed By: #### O BSCRN #### [facility] [address] [address] [address] Ambrosio Ramirez VLDL CALC 29.2 mg/dL Normal [facility] Comment on above: Performed By: #### O BSCRN #### [facility] [address] [address] [address] Ambrosio Ramirez PROF 14(COMP METB)on 022 Albumin [Mass/Vol] 4.3 g/dL Normal 3.4-5.0 [facility] Comment on above: Performed By: #### O BSCRN #### [facility] [address] [place] [address] Dr. Ambrosio Ramirez Albumin/Globulin [Mass ratio] 1.2 {ratio} Normal [facility] Comment on above: Performed By: #### O BSCRN #### [facility] [address] [place] [address] Dr. Ambrosio Ramirez ALP [Catalytic activity/Vol] 57 U/L Normal 46-116 [facility] Comment on above: Performed By: #### O BSCRN #### [facility] [address] [place] [address] Dr. Ambrosio Ramirez ALT [Catalytic activity/Vol] 56 U/L Normal 14-59 [facility] Comment on above: Performed By: #### O BSCRN #### [facility] [address] [place] [address] Dr. Ambrosio Ramirez Anion gap [Moles/Vol] 11.5 mmol/L Normal [facility] Comment on above: Performed By: #### O BSCRN #### [facility] [address] [place] [address] Dr. Ambrosio Ramirez AST [Catalytic activity/Vol] 75 U/L Critically high 15-37 [facility] Comment on above: Performed By: #### O BSCRN #### [facility] [address] [place] [address] Dr. Ambrosio Ramirez Bilirubin [Mass/Vol] 0.4 mg/dL Normal 0.2-1.0 [facility] Comment on above: Performed By: #### O BSCRN #### [facility] [address] [place] [address] Dr. Ambrosio Ramirez Calcium [Mass/Vol] 8.7 mg/dL Normal 8.5-10.1 [facility] Comment on above: Performed By: #### O BSCRN #### [facility] [address] [address] [address] Ambrosio Ramirez Chloride [Moles/Vol] 105 mmol/L Normal 98-107 [facility] Comment on above: Performed By: #### O BSCRN #### [facility] [address] [address] [address] Ambroiso Ramirez CO2 [Moles/Vol] 30.3 mmol/L Normal 21.0-32.0 [facility] Comment on above: Performed By: #### O BSCRN #### [facility] [address] [address] [address] Ambrosio Ramirez Creatinine [Mass/Vol] 0.67 mg/dL Normal 0.55-1.02 [facility] Comment on above: Performed By: #### O BSCRN #### [facility] [address] [place] [address] Dr. Ambrosio Ramirez EGFR-AF ROMANIAN >60 Normal >=60 [facility] Comment on above: Performed By: #### O BSCRN #### [facility] [address] [address] [address] Ambrosio Ramirez EGFR-NON AF ROMANIAN >60 Normal >=60 [facility] Comment on above: Performed By: #### O BSCRN #### [facility] [address] [address] [address] Ambrosio Ramirez Globulin (S) [Mass/Vol] 3.7 g/dL Normal [facility] Comment on above: Performed By: #### O BSCRN #### [facility] [address] [address] [address] Ambrosio Ramirez Glucose [Mass/Vol] 93 mg/dL Normal 74-106 [facility] Comment on above: Performed By: #### O BSCRN #### [facility] [address] [address] [address] Ambrosio Ramirez Potassium [Moles/Vol] 4.8 mmol/L Normal 3.5-5.1 [facility] Comment on above: Performed By: #### O BSCRN #### [facility] [address] [place] [address] Dr. Ambrosio Ramirez Protein [Mass/Vol] 8.0 g/dL Normal 6.4-8.2 [facility] Comment on above: Performed By: #### O BSCRN #### [facility] [address] [place] [address] Dr. Ambrosio Ramirez Sodium [Moles/Vol] 142 mmol/L Normal 136-145 [facility] Comment on above: Performed By: #### O BSCRN #### [facility] [address] [place] [address] Dr. Ambrosio Ramirez Urea nitrogen [Mass/Vol] 8.0 mg/dL Normal 7.0-18.0 [facility] Comment on above: Performed By: #### O BSCRN #### [facility] [address] [place] [address] Dr. Ambrosio Ramirez Urea nitrogen/Creatinine [Mass ratio] 11.9 mg/mg Normal [facility] Comment on above: Performed By: #### O BSCRN #### [facility] [address] [place] [address] Dr. Ambrosio Ramirez TSHon 08-22-2021 TSH 2.117 uIU/mL Normal 0.358-3.740 [facility] Comment on above: Performed By: #### O BSCRN #### [facility] [address] [place] [address] Dr. 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 Electronically authenticated by: GEORGE ROWE Date: 2021-08-22 21:07 Normal [facility] Vital Signs Date Time Vital Sign Value Performing Clinician Facility 01-12-2024 13:34-0500 Blood Pressure Location [facility] 01-12-2024 13:34-0500 Diastolic blood pressure 67 mm[Hg] [facility] 01-12-2024 13:34-0500 Heart rate 84 /min [facility] 01-12-2024 13:34-0500 Respiratory rate 20 /min [facility] 01-12-2024 13:34-0500 Systolic blood pressure 117 mm[Hg] [facility] 05-09-2022 10:14-0400 Diastolic blood pressure 85 mm[Hg] PROGRAM CLERK-C Ama Jerry Work Phone: [facility] 05-09-2022 10:14-0400 Heart rate 99 /min PROGRAM CLERK-C Ama Jerry Work Phone: [facility] 05-09-2022 10:14-0400 Respiratory rate 18 /min PROGRAM CLERK-C Ama Jerry Work Phone: [facility] 05-09-2022 10:14-0400 SaO2% (BldA) [Mass fraction] 99 % PROGRAM CLERK-C Ama Jerry Work Phone: [facility] 05-09-2022 10:14-0400 Systolic blood pressure 124 mm[Hg] PROGRAM CLERK-C Ama Jerry Work Phone: [facility] 05-09-2022 08:04-0400 Body height 180.34 cm PROGRAM CLERK-C Ama Jerry Work Phone: [facility] 05-09-2022 08:04-0400 Body weight 58.96 kg SHANE-C Ama Edwards Work Phone: [facility] 05-01-2022 11:15-0500 Body height Imad Asaad Other [employer] Other 05-01-2022 11:15-0500 Body mass index (BMI) [Ratio] 18.13 kg/m2 Imad Asaad Other [employer] Other 05-01-2022 11:15-0500 Body weight 58.97 kg Imad Asaad Other [employer] Other 05-01-2022 11:15-0500 Diastolic blood pressure 102 mm[Hg] Imad Asaad Other [employer] Other 05-01-2022 11:15-0500 Respiratory rate 16 /min Imad Asaad Other [employer] Other 05-01-2022 11:15-0500 Systolic blood pressure 158 mm[Hg] Imad Asaad Other [employer] Other Encounters Encounter Date Encounter Type Care Provider Facility Start: 02-08-2024 End: 02-08-2024 ambulatory Manuel Reynaga MD Facility:[facility] Start: 02-02-2024 End: 02-02-2024 ambulatory Ama Edwards Facility:[facility] Start: 01-12-2024 End: 01-12-2024 Lab Drop off [facility] Start: 01-12-2024 End: 01-12-2024 ambulatory [facility] Facility:[facility] Start: 01-12-2024 End: 01-12-2024 Patient encounter procedure [facility] Start: 12-28-2023 End: 12-28-2023 ambulatory Manuel Reynaga MD Facility: [facility] Start: 12-22-2023 End: 12-22-2023 ambulatory [facility] Facility:[facility] Start: 12-22-2023 End: 12-22-2023 Patient encounter procedure [facility] Start: 12-14-2023 End: 12-14-2023 ambulatory Manuel Reynaga MD Facility[facility] Start: 11-23-2023 ambulatory [facility] Facility :[facility] Start: 09-21-2023 End: 09-21-2023 ambulatory Manuel Reynaga MD Facility: [facility] Start: 08-31-2023 End: 08-31-2023 ambulatory Andkrishna Lugoitis Facility: [facility] Start: 08-17-2023 End: 08-17-2023 ambulatory Manuel Lugoitis Facility: [facility] Start: 07-06-2023 End: 07-06-2023 ambulatory Andkrishna Lugoitis Facility: [facility] Start: 05-09-2022 End: 05-09-2022 Admission to same day surgery center PROGRAM CLERK-C Ama Edwards Work Phone: [facility] Work Phone: Start: 05-09-2022 End: 05-09-2022 ambulatory PROGRAM CLERK-C Ama Edwards Work Phone: [facility] Work Phone: Start: 05-02-2022 End: 05-02-2022 ambulatory Imad Asaad Other [employer] Other Start: 05-02-2022 Telephone encounter Imad Asaad [facility] Start: 05-01-2022 End: 05-01-2022 ambulatory Imad Asaad Other [employer] Other Start: 05-01-2022 Office consultation new/estab patient [...] Procedure Detail Performing Clinician Start: 05-09-2022 Esophagogastroduodenoscopy PROGRAM CLERK-C Ama patel Work Phone: Colonoscopy [facility] Screening for malign ant neoplasm of colon Imad Asaad Other Surgical procedure o n cervical spine [place] Tonsillectomy [facility] Plan of Treatment Date Care Activity Detail Author Start: 05-09-2022 [facility] Patient Education Colon Polyps H emorrhoids (DC) Diverticulosis (DC) Gastritis (DC) [facility] Work Phone: Payers Date Payer Category Payer Self-pay 2022 Unknown 1960 Unknown [id number] 2.16.84 [id number] 1960 Unknown [id number] 2.16.84 [id number] 1960 Unknown [id number] 2.16.84 0.1.347998.3.579.2.593 1962 Unknown [id number] 2.16.84 0.1.353016.3.579.2.593 1962 Unknown [id number] 2.16.84 0.1.509660.3.579.2.593 1962 Unknown [id number] 2.16.84 0.1.710963.3.579.2.593 1962 Unknown [id number] 2.16.84 0.1.219038.3.579.2.593 1962 Unknown [id number] 2.16.8 40.1.304640.3.579.2.727 1962 Unknown [id number] 2.16.8 40.1.813313.3.579.2.727 1962 Unknown [id number] 2.16. 840.1.524557.3.579.2.196 1962 Unknown [id number] 2.16. 840.1.570088.3.579.2.196 1962 Unknown [id number] 2.16. 840.1.999189.3.579.2.196 1962 Unknown [id number] 2.16. 840.1.749825.3.579.2.196 1962 Unknown [id number] 2.16. 840.1.975801.3.579.2. 1962 Unknown [id number] 2.16. 840.1.078303.3.579.2.196 1962 Unknown [id number] 2.16. 840.1.189640.3.579.2.196 1957 Medicare [id number] 1959 Unknown [id number] 1959 Unknown [id number] 1957 Unknown [id number] Unknown [id number] 2.16.8 40.1.129027.3.579.2.531 Social History Date Type Detail Facility Start: 05-09-2022 Tobacco smoking stat [facility] Smoker (finding) [facility] Start: 1960 Sex Assigned At Female F [facility] Sex Assigned At [facility] Tobacco smoking status No Smokin g Status Entered [facility] Start: 01-12-2024 Tobacco smoking status Heavy t obacco smoker (finding) [facility] Goals Date Patient Goal Desired Activity /State Functional Status Date Assessment Result Facility 01-12-2024 Functional Status N/A [facility] Clinical Notes 05-01-2022 to 01-12-2024 Note Date [...] your health care provider. General instructions Take bdpl-psz-xeomwod and prescription medicines only as told by [...] provider. Document Revised: 10/29/2020 Document Reviewed: 10/29/2020 ITT EXIM Patient Education 2023 [employer]. Follow Up Care 01/05/2024 13:19:21 With:AMBER MONAHAN, LEIGH Mcleod, URL Address: [address] [place] [address] Business (1) When: only if needed [facility] 01-12-2024 Note Patient Education Obstetrics [...] health care provider. General instructions ??? Take eonz-bvw-ogrfpmp and prescription medicines only as told by [...] drink, and whe (more content not included)... [facility] 01-12-2024 Evaluation + Plan note Diagnostic Tests PendingUrine Culture 01/12/24 [facility] 05-09-2022 Procedure note [facility] 05-01-2022 Evaluation note Encounter Date Diagnosis Assessment Notes Apr, Dysphagia (ICD-10 - R13.10) Apr, Weight loss (ICD-10 - R63.4) Apr, Colon cancer screening (ICD-10 - Z12.11) [employer] Other Evaluation + Plan note No data available for this section [facility] evaluation noteNo assessment information available [facility] Work Phone: Evaluation noteNo InformationNort [employer] Other History general Narrative - Reported* Type Description Date Medical History Anxiety/Depression Surgical History Neck surgery Surgical History Tonsillectomy Hospitalization History See above [employer] Other Hospital Discharge instructions Additional Instructions DISCHARGE [...] NOT operate machinery such as power tools, [employer] mowers, snow blowers, sewing machines, etc. for [...] -Follow up with PCP. - Office number [phone]. [facility] Work Phone: Hospital Discharge instructions No data available for this section [facility] progress note No data available for this section [facility] Chief Complaint and Reason for Visit [...] and content) DATE CREATED AUTHOR 07/02/2022 [facility] DATE CREATED AUTHOR AUTHOR'S ORGANIZ ATION 01/15/2024 [facility] DATE CREATED AUTHOR AUTHOR'S ORGANIZ ATION 01/17/2024 [facility] DATE CREATED AUTHOR AUTHOR'S ORGANIZ ATION 02/06/2024 [facility] DATE CREATED AUTHOR AUTHOR'S ORGANIZ ATION 02/11/2024 [facility] DATE CREATED AUTHOR AUTHOR'S ORGANIZ ATION 02/17/2024 [facility] FOR RECORDS PERTAINING TO PATIENTS WHO ARE [...] BE BASED ON THE PRIMARY CLINICAL RECORDS. [employer] [facility]. provides no warranty or guarantee of the accuracy or completeness of information in this document.
--- NOTE | 2024-03-23 13:19 | P.CN_ITS ---
Consult Note: HPI Data of Consult Patient: known to practice within the last 3 years Requesting Physician: Angel Brownlee NP Primary Care Provider: SOLITARIO EDWARDS Consult Narrative Reason for consult: f/u Narrative: Nancy Joyce a pleasant 63 year old female presents for evaluation of chronic neck pain post cervical fusion. pt has been evaluated by NS who recommends additional surgical intervention. pt failed to significant benefit from bilateral C3/4 TFESI. Has failed >6 weeks of provider guided HEP, currently in PT with increased pain. failed tylenol and NSAIDs as well as heat and ice. Pain today 7-8/10 with numbness and tingling in neck. pt utilizing tramadol 50-100mg BID and norflex 100mg BID PRN with benefit without side effects. cc:: CC: Angle Brownlee NP Review of Systems ROS Status of ROS 10 or more systems reviewed and unremark able except as noted in history and below Musculoskeletal Reports: back pain and neck pain PFSH PFSH Medical History History of needle biopsy ?Z98.890 - Other specified postprocedural states (ICD-10) Dyspnea on exertion ?R06.09 - Other forms of dyspnea (ICD-10) Colon polyp ?K63.5 - Polyp of colon (ICD-10) Fibromyalgia ?M79.7 - Fibromyalgia (ICD-10) Back pain ?M54.9 - Dorsalgia, unspecified (ICD-10) Arthritis ?M19.90 - Unspecified osteoarthritis, unspecified site (ICD-10) Claustrophobia ?F40.240 - Claustrophobia (ICD-10) Insomnia ?G47.00 - Insomnia, unspecified (ICD-10) Heartburn ?R12 - Heartburn (ICD-10) Diverticulitis ?K57.92 - Diverticulitis of intestine, part unspecified, without perforation or abscess without bleeding (ICD-10) Degeneration of lumbosacral intervertebral disc ?M51.37 - Other intervertebral disc degeneration, lumbosacral region (ICD-10) Spondylolisthesis, lumbar region ?M43.16 - Spondylolisthesis, lumbar region (ICD-10) Cervical disc displacement ?M50.20 - Other cervical disc displacement, unspecified cervical region (ICD- 10) Spinal stenosis, cervical region ?M48.02 - Spinal stenosis, cervical region (ICD-10) Other cervical disc degeneration, high cervical region ?M50.31 - Other cervical disc degeneration, high cervical region (ICD-10) Anxiety ?F41.9 - Anxiety disorder, unspecified (ICD-10) Depression ?F32.A - Depression, unspecified (ICD-10) Bronchitis ?J40 - Bronchitis, not specified as acute or chronic (ICD-10) HTN (hypertension) ?I10 - Essential (primary) hypertension (ICD-10) Intervertebral disc degeneration Myofascial pain ?M79.18 - Myalgia, other site (ICD-10) Lumbar stenosis with neurogenic claudication ?M48.062 - Spinal stenosis, lumbar region with neurogenic claudication (ICD- 10) Chronic use of benzodiazepine for therapeutic purpose ?Z79.899 - Other watermaster (current) drug therapy (ICD-10) Greater trochanteric bursitis of both hips ?M70.61 - Trochanteric bursitis, right hip (ICD-10) ?M70.62 - Trochanteric bursitis, left hip (ICD-10) Muscle spasm ?M62.838 - Other muscle spasm (ICD-10) Cervical postlaminectomy syndrome ?M96.1 - Postlaminectomy syndrome, not elsewhere classified (ICD-10) Cervical spondylosis ?M47.812 - Spondylosis without myelopathy or radiculopathy, cervical region (ICD-10) Upper back pain ?M54.9 - Dorsalgia, unspecified (ICD-10) Neck pain ?M54.2 - Cervicalgia (ICD-10) Smoker ?F17.200 - Nicotine dependence, unspecified, uncomplicated (ICD-10) Surgical History H/O lumbosacral spine surgery ?Z98.890 - Other specified postprocedural states (ICD-10) History of colonoscopy ?Z98.890 - Other specified postprocedural states (ICD-10) S/P epidural steroid injection ?Z92.241 - Personal history of systemic steroid therapy (ICD-10) History of tonsillectomy ?Z90.89 - Acquired absence of other organs (ICD-10) H/O cervical spine surgery ?Z98.890 - Other specified postprocedural states (ICD-10) Family History Other Family history of breast cancer Social History Within the past year, how often did you have a drink containing alcohol: 2-4 times a month Smoking status: Current every day smoker What tobacco products do you use: cigarettes Packs per day: 1 Years smoked: 45 Smoking pack-years: 45.00 Highest level of school completed/degree received: 9th grade Meds Home Medications and Allergies Home Medications ?Medication ?Instructions ?Recorded ?Confirmed ?Type omeprazole 40 mg capsule,delayed 40 mg PO DAILY 08/31/23 02/02/24 History release albuterol sulfate 90 mcg/actuation 2 inh inhalation Q6H PRN shortness 09/25/23 12/28/23 History aerosol inhaler of breath or wheezing trazodone 50 mg tablet 50 mg PO QPM PRN sleep 09/25/23 01/12/24 History orphenadrine citrate 100 mg 100 mg PO BID PRN Muscle spasms 30 10/11/23 01/12/24 Rx tablet,extended release days #60 tabs tramadol 50 mg tablet 50 mg PO Q4H PRN pain 12/14/23 01/12/24 History acetaminophen 650 mg 650 mg PO Q12H PRN pain 12/28/23 12/28/23 History tablet,extended release naloxone 4 mg/actuation nasal 4 mg intranasal Q2M PRN opioid 01/06/24 Rx spray (Narcan) overdose #1 ea diazepam 5 mg tablet 5 mg PO DAILY 01/12/24 02/02/24 History tiotropium bromide 2.5 2 inh inhalation DAILY 01/12/24 02/02/24 History mcg/actuation mist for inhalation (Spiriva Respimat) tramadol 100 mg capsule 100 mg PO DAILY PRN pain #30 caps 02/02/24 Rx 24h,extended release(25-75) tramadol 50 mg tablet See Rx Instructions .Route 02/03/24 Rx .COMPLEX PRN pain #95 tabs tramadol 50 mg tablet See Rx Instructions .Route 03/04/24 Rx .COMPLEX PRN pain #95 tabs Allergies Allergy/AdvReac Type Severity Reaction Status Date / Time No Known Drug Allergies Allergy Verified 02/02/24 14:18 Exam Constitutional Documenting provider has reviewed patient's vital signs: yes Common normals: no apparent distress, oriented x3, healthy appearing, alert and well nourished General appearance: cooperative HENMT Common normals: normocephalic, hearing grossly normal bilaterally and moist oral mucous membranes Head and scalp: normocephalic Eye Common normals: PERRL Pupil: PERRL Neck & C-Spine Common normals: full ROM General: normal visual inspection Cervical spine: cervical ROM abnormal, pain with cervical ROM and cervical spine tenderness Other: strength 4/5 in BUE sensation intact BUE positive spurlings Chest Common normals: inspection of chest normal Respiratory Common normals: normal respiratory effort, no retractions and no use of accessory muscles Neuro Common normals: oriented x3, CN's II-XII intact bilaterally, moves all extremities, no focal motor deficits, no sensory deficits noted and deep tendon reflexes 2+ bilaterally Sensorium/orientation: alert Motor exam: strength 5/5 throughout and no movement abnormalities noted Psych Common normals: mental status grossly normal, thought process normal, cooperative, affect normal, speech normal and activity/motor behavior normal Speech: normal speech Thought process: normal thought process Results Additional Findings Additional findings: If on a controlled substance or opioids, I have checked an [place]AR[place] report on this patient and there are no aberrancies noted in the prescribing history.??If on a controlled substance or opioid a drug screen was completed and reviewed within the last year, and if there has not been a drug screen completed we ordered one today to monitor higher risk, state monitored pain medication use. As part of providing excellent, safe, comprehensive care, the following was completed at our patient's visit: 1. A medication reconciliation and review to ensure accurate knowledge of current/active medications, including asking our patients to inform us about any srhe-keh-bpgetwn medications or herbal remedies/nutritional supplements/alternative remedies. 2. A review to specifically ensure our patients have had annual screening for screening for depression, screening for tobacco use, and screening for unhealthy alcohol use. For concerning screenings had a discussion with the patient, provided patient education, and recommended follow-up with primary care provider when appropriate. If patient noted with a risk of falling, they received education on strength, gait, and balance training to prevent future risk of falling. Portions of this note may have been carried over from the previous visit and updated as appropriate. Please note this office utilizes paper charting in addition to the electronic medical record. A list of current medications, vitals, and PMH is available there as the clinical staff outside of myself do not have access to [employer] charting during the clinic day operations. As part of providing quality comprehensive care the current medications, vitals, and PMH were reviewed in the paper chart. Assessment and Plan Assessment and Plan (1) Failed neck syndrome: (2) Myalgia, other site: (3) Chronic use of opiate for therapeutic purpose: Assessment and Plan: I feel these medications are improving the patient's quality of life and allow them to tolerate activities of daily living as well as participate in recreational activity.? The patient does not report intolerable side effects. The patient is NOT opioid naive and non-pharmacologic and non-opioid treatment has failed to significantly relieve the patient's pain and improve functionality. The patient has a diagnosis that is related to a somatic or visceral pain etiology. ? ?? I reviewed with the patient the potential risks and side effects with the use of? opioid medications including but not limited to respiratory depression,? sedation, and even . Within the last 12 months I have verified the patient has access to naloxone should? these effects occur. The patient was advised to let? their family know they had Naloxone in case they would need to administer? the medication. I advised the patient to avoid the use of any other? sedation substances including alcohol, THC, and benzodiazepines while? taking opioid medications due to the risk of compounding side effects and? detrimental outcomes. within the last 12 months I have reviewed the [facility], pain treatment agreement and urine drug screen.? ?? A drug screen was completed within the last year, and no aberrancies were noted regarding their use of controlled substances. The patient understands they are subject to the terms and conditions of the pain contract that they have signed. ? ?? I have checked an OARRS report on this patient today and there are no aberrancies noted in the prescribing history.? Plan continue current medications continue f/u with NS f/u 3 months
== END 2024-03-23 12:52 | disposition home or self-care (01) ==
LOC: PM 12:52
PROVIDERS: PCP Nurse Practitioner Family; Visit Provider Nurse Practitioner
DX: M96.1 Postlaminectomy syndrome, not elsewhere classified (principal); M79.18 Myalgia, other site; Z79.891 Long term (current) use of opiate analgesic
CPT/HCPCS: G0463

== ENCOUNTER 2024-04-01 09:56 | Outpatient (OUT) | payer MEDICARE, OTHER, MEDICAID, SELFPAY ==
--- NOTE | 2024-04-01 | XR_ITS ---
The [address] [address] Patient Name: CARLA ABDI MRN: [facility]:[id number] date: 1960 Sex: F Assigned Patient Location: Current Patient Location: Accession/Order Number: [id number] Exam Date: 04/01/2024 09:57 Report Date: 04/04/2024 08:47 At the request of: SHAD REID Procedure: XR lumbar spine min 4V EXAMINATION: XR lumbar spine min 4V HISTORY: LUMBAR SPINE PAIN COMPARISON: No relevant comparison available. FINDINGS: BONES: r neutral projection demonstrates posterior decompression and transpedicular fusion L4-L5 with 10 mm anterolisthesis L4 on L5. This is stable with flexion and extension. Mild spondylosis. Zvvr-pd-kubmksof facet osteoarthropathy DISC SPACES: Disc collapse L4-5 PARASPINOUS: Negative. No paraspinous abnormality is seen. OTHER: Negative. XR/XR lumbar spine min 4V IMPRESSION: 10 mm anterolisthesis L4 on L5 with no dynamic instability. Electronically authenticated by: GEORGE ROWE Date: 04/04/2024 08:47
--- OUTSIDE RECORDS SUMMARY | 2024-04-01 10:13 | XMS_ITS | CCD ---
Author Organization [facility] Care Team Providers Care Tooling Inspector Name Role Phone MD Nesha Bryant Attending [...] Medication Allergies] Propensity to adverse reactions (disorder) [facility] Repository Medications Current Medications Medication Drug Class(es) [...] Ordered Start: 05-12-2022 take 1 capsule by [facility] once daily Omeprazole 40 MG 1 capsule 30 minutes before morning meal Orally Once a day for 30 days Apr, Active 12 hr orphenadrine citrate 100 mg extended release oral tablet (2 sources) Muscle Relaxant Start: 01-12-2024 orphenadrine 1 00 mg ER Tab 100 mg = 1 tab(s) Start Date: 01/12/24 Status: Ordered polyethylene glycol 3350 845749 mg / potassium chloride 2970 mg / sodium bicarbonate 6740 mg / sodium chloride 5860 mg / sodium sulfate 20281 mg powder for oral solution (2 sources) [...] Test Name Value Interpretation Reference Range Facility [facility] 02-02-2024 L --- Specimen: [id number] Received: 02/03/24 Status: EDUARD Zaragoza Num: [id number] Spec Type: Surgical Subm Dr: Jose Matos MD Tissues: A Breast Core CALCIFICATIONS (RIGHT BREAST MICRO CALCIFICA) Procedures: ROSI/Sanya Ibrahim/Lindsay L4 Age/ Patient Sex Location Account Attending Physician Nancy Joyce 63/F LABELL [id number] Ama Edwards CNP SPEC NUM: [id number] RECD: 02/03/24 STATUS: EDUARD ZARAGOZA NUM: [id number] KATY: 02/02/[address]: Jose Matos MD ENTERED: 02/03/[address] [facility] [address]: Keyur,Lab Ama Edwards, [employer] UNLOADER SPEC TYPE: Surgical DEPT: RAMYA LOWE ENTERED BY: [id number] RECV BY: [id number] ORDERED: HE/6, Gross/Micro L4 ORDERED: HE/6, Gross/Micro [...] 28 hours and 30 minutes (3, ns, [id number] A) GLENN Specimen: [id number] Received: 02/03/24 Status: EDUARD Nik Num: [id number] Spec Type: Surgical Subm Dr: Jose Matos MD Tissues: A Breast Core CALCIFICATIONS (RIGHT BREAST MICRO CALCIFICA) Procedures: HE/6, Gross/Micro L4 Patient: Nancy Joyce [id number] (Continued) Specimen: [id number] Received: 02/03/24 (Continued) Signed (signature on file) Glenn Rogel MD 02/04/24 1105 Specimen: [id number] Received: 02/03/24 Status: EDUARD Zaragoza Num: [id number] Spec Type: Surgical Subm Dr: Jose Matos MD Tissues: A Breast Core CALCIFICATIONS (RIGHT BREAST MICRO CALCIFICA) Procedures: HE/6, Sanya/Lindsay L4 Patient: Nancy Joyce Nuria [id number] (Continued) Specimen: [id number] Received: 02/03/24 (Continued) Microscopic Description Microscopic examination is performed. CPT Codes 25359 Specimen: [id number] Received: 02/03/24 Status: EDUARD Zaragoza Num: [id number] Spec Type: Surgical Subm Dr: Jose Matos MD Tissues: A Breast Core CALCIFICATIONS (RIGHT BREAST MICRO CALCIFICA) Procedures: HE/6, Gross/Micro L4 Patient: Nancy Joyce [id number] (Continued) Signed (signature on file) Glenn Rogel MD 02/04/24 [address] [facility] C Urineon 01-14-2024 Bacteria [...] Locations R1: This test [facility] performed at[facility], [address] [place] [address], [facility]- , [place], Normal [facility] Comment on above: Performed By: #### 2 [id number] #### [facility] [address] [place] [address] URINALYSISOrdered By: SYSTEM SYSTEM on 01-12-2024 Bilirubin [...] that meet specific criteria set forth by [facility]. Glucose Ql (U) Negative Normal Negativemg/d L [facility] UA Auto SS Hemoglobin Auto test strip (U) [Mass/Vol] Trace mg/dL Invalid Interpretation Code Negativemg/d L [facility] UA Auto SS Ketones Auto test strip Ql (U) Negative Normal Negativemg/d L [facility] UA Auto SS Leukocyte esterase Auto test strip Ql (U) Negative Normal NegativeLeu/ uL [facility] UA Auto SS Nitrite Auto test strip Ql (U) Negative Normal Negativemg/d L [facility] UA Auto SS pH (U) 5.0 *NA* (01/12/24 2:07 PM) Invalid Interpretation Code 5.0 - 9.0 [facility] UA Auto SS Protein Ql (U) Negative Normal Negativemg/d L [facility] UA Auto SS Specific gravity (U) [Rel density] 1.012 *NA* (01/12/24 2:07 PM) Invalid Interpretation Code 1.005 - 1.030 [facility] UA Auto SS Urobilinogen (U) [Mass/Vol] Negative Normal Negativemg/d L [facility] UA Auto SS URINALYSISOrdered By: Alexandra Godoy on 01-12-2024 UA Spec Desc Random Urine (01/12/24 2:07 PM) Normal [facility] UA Auto SS Urinalysis with Microon 12-24 Bilirubin Ql (U) Negative Normal Negative [facility] Comment on above: Performed By: #### 4 [id number] #### [facility] [address] [place] [address] Clarity (U) Clear Normal Clear [facility] Comment on above: Performed By: #### 4 [id number] #### [facility] [address] [place] [address] Color (U) Yellow Normal Yellow [facility] Comment on above: Result Comment: Micr oscopic readings are only performed on those samples that meet specific criteria set forth by [facility]. Performed By: #### 4 [id number] #### [facility] [address] [place] [address] Glucose Ql (U) Negative Normal Negative [facility] Comment on above: Performed By: #### 4 [id number] #### [facility] [address] [place] [address] Hemoglobin Auto test strip (U) [Mass/Vol] Trace Abnormal Negative [facility] Comment on above: Performed By: #### 4 [id number] #### [facility] [address] [place] [address] Ketones Auto test strip Ql (U) Negative Normal Negative [facility] Comment on above: Performed By: #### 4 [id number] #### [facility] [address] [place] [address] Leukocyte esterase Auto test strip Ql (U) Negative Normal Negative [facility] Comment on above: Performed By: #### 4 [id number] #### [facility] [address] [place] [address] Nitrite Auto test strip Ql (U) Negative Normal Negative [facility] Comment on above: Performed By: #### 4 [id number] #### [facility] [address] [place] [address] pH (U) 5.0 [pH] Invalid Interpretation Code 5.0-9.0 [facility] Comment on above: Performed By: #### 4 [id number] #### [facility] [address] [place] [address] Protein Ql (U) Negative Normal Negative [facility] Comment on above: Performed By: #### 4 [id number] #### [facility] [address] [place] [address] Specific gravity (U) [Rel density] 1.012 Invalid Interpretation Code 1.005-1.030 [facility] Comment on above: Performed By: #### 4 [id number] #### [facility] [address] [place] [address] Urobilinogen (U) [Mass/Vol] Negative Normal Negative [facility] Comment on above: Performed By: #### 4 [id number] #### [facility] [address] [place] [address] Type of Urine collection method Random Urine Normal [facility] Comment on above: Performed By: #### 4 [id number] #### [facility] [address] [place] [address] Urology Office/Clinic Noteon 01-12-2024 Urology Office/Clinic Note [...] E&M of New Patient Moderate 45-59 Min 60777 2. Asymptomatic microscopic hematuria (R31.21: Asymptomatic microscopic [...] E&M of New Patient Moderate 45-59 Min 77957 Orders: [id number] Measure Post Void residual urine and/or bladder capacity by US- non-imaging Urinalysis with Micro Urine Culture Urnls Dip Stick Auto w/o Microscopy POC 16917 Follow-up With When Contact Information AMBER MONAHAN, LEIGH Mcleod, URL Only if needed [address] [place] [address] Business (1) Additional Instructions: Patient [...] Dipstick: Negativ (more content not included)... Normal [facility] Comment on above: Result Comment: Elec tronically [...] by: JOSE MATOS Date: 2022-03-25 13:53 Normal [facility] INSULINon 03-13-2022 Insulin 3.9 uIU/mL Normal 2.6-24.9 [facility] Comment on above: Performed By: #### O BSCRN #### [facility] [address] [place] [address] Dr. Ambrosio Ramirez XR CSPINE MIN 4 [...] 03-12-2022 BASO # 0.0 103/ul Normal 0.0-0.1 [facility] Comment on above: Performed By: #### C BC #### [facility] [address] [place] [address] Dr. Ambrosio Rmairez Basophils/100 WBC (Bld) 0.7 % Normal 0.2-2.0 [facility] Comment on above: Performed By: #### C BC #### [facility] [address] [place] [address] Dr. Ambrosio Ramirez EO # 0.1 103/ul Normal 0.0-0.7 [facility] Comment on above: Performed By: #### C BC #### [facility] [address] [place] [address] Dr. Ambrosio Ramirez Eosinophils/100 WBC (Bld) 0.9 % Normal 0.9-7.0 [facility] Comment on above: Performed By: #### C BC #### [facility] [address] [place] [address] Dr. Ambrosio Ramirez Erythrocyte distribution width (RBC) [Ratio] 12.3 % Normal 11.0-15.0 [facility] Comment on above: Performed By: #### C BC #### [facility] [address] [place] [address] Dr. Ambrosio Ramirez Hematocrit (Bld) [Volume fraction] 46.0 % Normal 36.0-48.0 [facility] Comment on above: Performed By: #### C BC #### [facility] [address] [place] [address] Dr. Ambrosio Ramirez Hemoglobin (Bld) [Mass/Vol] 15.2 g/dL Normal 12.0-16.0 [facility] Comment on above: Performed By: #### C BC #### [facility] [address] [place] [address] Dr. Ambrosio Ramirez IG # 0.03 10e3/ul Normal 0.00-0.03 [facility] Comment on above: Performed By: #### C BC #### [facility] [address] [place] [address] Dr. Ambrosio Ramirez IG % 0.5 % Normal 0.0-0.5 [facility] Comment on above: Performed By: #### C BC #### [facility] [address] [place] [address] Dr. Ambrosio Ramirez LYMPH # 2.0 103/ul Normal 1.2-3.8 [facility] Comment on above: Performed By: #### C BC #### [facility] [address] [place] [address] Dr. Ambrosio Ramirez Lymphocytes/100 WBC (Bld) 35.0 % Normal 20.5-60.0 [facility] Comment on above: Performed By: #### C BC #### [facility] [address] [place] [address] Dr. Ambrosio Ramirez MANUAL DIFF REQ NO Normal [facility] Comment on above: Performed By: #### C BC #### [facility] [address] [place] [address] Dr. Ambrosio Ramirez MCH (RBC) [Entitic mass] 33.8 pg Normal 26.7-34.0 [facility] Comment on above: Performed By: #### C BC #### [facility] [address] [place] [address] Dr. Ambrosio Ramirez MCHC (RBC) [Mass/Vol] 33.0 g/dL Normal 29.9-35.2 [facility] Comment on above: Performed By: #### C BC #### [facility] [address] [address] [address] Ambrosio Ramirez MCV (RBC) [Entitic vol] 102.2 fL Critically high 81.0-99.0 [facility] Comment on above: Performed By: #### C BC #### [facility] [address] [address] [address] Ambrosio Ramirez MONO # 0.4 103/ul Normal 0.3-0.8 [facility] Comment on above: Performed By: #### C BC #### [facility] [address] [address] [address] Ambrosio Ramirez Monocytes/100 WBC (Bld) 7.2 % Normal 1.7-12.0 [facility] Comment on above: Performed By: #### C BC #### [facility] [address] [place] [address] Dr. Ambrosio Ramirez NEUT # 3.2 103/ul Normal 1.4-6.5 [facility] Comment on above: Performed By: #### C BC #### [facility] [address] [place] [address] Dr. Ambrosio Ramirez Neutrophils/100 WBC (Bld) 55.7 % Normal 43.0-75.0 [facility] Comment on above: Performed By: #### C BC #### [facility] [address] [place] [address] Dr. Ambrosio Ramirez Platelet mean volume (Bld) [Entitic vol] 9.1 fL Critically low 9.5-13.5 [facility] Comment on above: Performed By: #### C BC #### [facility] [address] [place] [address] Dr. Ambrosio Ramirez PLT 234 103/ul Normal 150-450 [facility] Comment on above: Performed By: #### C BC #### [facility] [address] [place] [address] Dr. Ambrosio Ramirez RBC 4.50 106/ul Normal 4.20-5.40 [facility] Comment on above: Performed By: #### C BC #### [facility] [address] [address] [address] Ambrosio Ramirez WBC 5.7 103/ul Normal 4.0-11.0 [facility] Comment on above: Performed By: #### C BC #### [facility] [address] [address] [address] Ambrosio Ramirez FREE THYROXINE INDEX T7on FTI 2.41 Normal 1.30-4.50 [facility] Comment on above: Performed By: #### A 1C #### [facility] [address] [place] [address] Dr. Ambrosio Ramirez T3U 33.0 % Normal 30.0-39.0 [facility] Comment on above: Performed By: #### A 1C #### [facility] [address] [place] [address] Dr. Ambrosio Ramirez T4 [Mass/Vol] 7.30 ug/dL Normal 4.80-13.90 [facility] Comment on above: Performed By: #### A 1C #### [facility] [address] [place] [address] Dr. Ambrosio Ramirez GLYCOHEMOGLOBIN A1Con 2022 ADA RECOMMENDATION SEE BELOW Normal [facility] Comment on above: Result Comment: ADA RECOMMENDED LIMIT 4.0 - 6.0 ADA THERAPEUTIC TARGET < 7.0 ACTION SUGGESTED > 7.0 Performed By: #### A 1C #### [facility] [address] [place] [address] Dr. Ambrosio Ramirez Glucose [Mass/Vol] 100 mg/dL Normal [facility] Comment on above: Performed By: #### A 1C #### [facility] [address] [place] [address] Dr. Ambrosio Ramirez HbA1c (Bld) [Mass fraction] 5.1 % Normal 4.5-6.2 [facility] Comment on above: Performed By: #### A 1C #### [facility] [address] [place] [address] Dr. Ambrosio Ramirez IRONon 03-12-2022 Iron [Mass/Vol] 148.0 ug/dL Normal 50.0-170.0 [facility] Comment on above: Performed By: #### O BSCRN #### [facility] [address] [address] [address] Ambrosio Ramirez LIPID PROFILEon 03-12-2022 CHOL-HDL RATIO NORM SEE BELOW Normal [facility] Comment on above: Result Comment: 3.3 - 4.4 LOW RISK 4.4 - 7.1 AVERAGE RISK 7.1 - 11.0 MODERATE RISK >11.0 HIGH RISK Performed By: #### A 1C #### [facility] [address] [address] [address] Ambrosio Ramirez Cholesterol [Mass/Vol] 234 mg/dL Critically high <=200 [facility] Comment on above: Performed By: #### A 1C #### [facility] [address] [address] [address] Ambrosio Ramirez Cholesterol in HDL [Mass/Vol] 71 mg/dL Critically high 40-60 [facility] Comment on above: Performed By: #### A 1C #### [facility] [address] [address] [address] Ambrosio Ramirez Cholesterol in LDL [Mass/Vol] 132.4 mg/dL Normal [facility] Comment on above: Performed By: #### A 1C #### [facility] [address] [address] [address] Ambrosio Ramirez Cholesterol.total/Cho lesterol in HDL [Mass ratio] 3.3 {ratio} Normal [facility] Comment on above: Performed By: #### A 1C #### [facility] [address] [address] [address] Ambrosio Ramirez HDL NORMAL > or = 60 mg/dl - LO W CARDIOVASCULAR RISK <40 mg/dl - HIGH CARDIOVASCULAR RISK Normal [facility] Comment on above: Performed By: #### A 1C #### [facility] [address] [address] [address] Ambrosio Ramirez LDL CALC NORMAL SEE BELOW Normal [facility] Comment on above: Result Comment: <100 mg/dl OPTIMAL 100 - 129 mg/dl NEAR OR ABOVE OPTIMAL 130 - 159 mg/dl BORDERLINE HIGH 160 - 189 mg/dl HIGH >190 mg/dl VERY HIGH Performed By: #### A 1C #### [facility] [address] [address] [address] Ambrosio Ramirez Triglyceride [Mass/Vol] 153 mg/dL Critically high <=150 [facility] Comment on above: Performed By: #### A 1C #### [facility] [address] [address] [address] Ambrosio Ramirez VLDL CALC 30.6 mg/dL Normal [facility] Comment on above: Performed By: #### A 1C #### [facility] [address] [address] [address] Ambrosio Ramirez PROF 14(COMP METB)on 023 Albumin [Mass/Vol] 4.2 g/dL Normal 3.4-5.0 [facility] Comment on above: Performed By: #### A 1C #### [facility] [address] [address] [address] Ambrosio Ramirez Albumin/Globulin [Mass ratio] 1.3 {ratio} Normal [facility] Comment on above: Performed By: #### A 1C #### [facility] [address] [address] [address] Ambrosio Ramirez ALP [Catalytic activity/Vol] 62 U/L Normal 46-116 [facility] Comment on above: Performed By: #### A 1C #### [facility] [address] [place] [address] Dr. Ambrosio Ramirez ALT [Catalytic activity/Vol] 27 U/L Normal 14-59 [facility] Comment on above: Performed By: #### A 1C #### [facility] [address] [address] [address] Ambrosio Ramirez Anion gap [Moles/Vol] 12.8 mmol/L Normal [facility] Comment on above: Performed By: #### A 1C #### [facility] [address] [address] [address] Ambrosio Ramirez AST [Catalytic activity/Vol] 39 U/L Critically high 15-37 [facility] Comment on above: Performed By: #### A 1C #### [facility] [address] [address] [address] Ambrosio Ramirez Bilirubin [Mass/Vol] 0.4 mg/dL Normal 0.2-1.0 [facility] Comment on above: Performed By: #### A 1C #### [facility] [address] [address] [address] Ambrosio Ramirez Calcium [Mass/Vol] 9.1 mg/dL Normal 8.5-10.1 [facility] Comment on above: Performed By: #### A 1C #### [facility] [address] [address] [address] Ambrosio Ramirez Chloride [Moles/Vol] 103 mmol/L Normal 98-107 [facility] Comment on above: Performed By: #### A 1C #### [facility] [address] [place] [address] Dr. Ambrosio Ramirez CO2 [Moles/Vol] 30.5 mmol/L Normal 21.0-32.0 [facility] Comment on above: Performed By: #### A 1C #### [facility] [address] [place] [address] Dr. Ambrosio Ramirez Creatinine [Mass/Vol] 0.54 mg/dL Critically low 0.55-1.02 [facility] Comment on above: Performed By: #### A 1C #### [facility] [address] [place] [address] Dr. Ambrosio Ramirez EGFR-AF CHILEAN >60 Normal >=60 [facility] Comment on above: Performed By: #### A 1C #### [facility] [address] [place] [address] Dr. Ambrosio Ramirez EGFR-NON AF CHILEAN >60 Normal >=60 [facility] Comment on above: Performed By: #### A 1C #### [facility] [address] [place] [address] Dr. Ambrosio Ramirez Globulin (S) [Mass/Vol] 3.3 g/dL Normal [facility] Comment on above: Performed By: #### A 1C #### [facility] [address] [place] [address] Dr. Ambrosio Ramirez Glucose [Mass/Vol] 88 mg/dL Normal 74-106 [facility] Comment on above: Performed By: #### A 1C #### [facility] [address] [address] [address] Ambrosio Ramirez Potassium [Moles/Vol] 4.3 mmol/L Normal 3.5-5.1 [facility] Comment on above: Performed By: #### A 1C #### [facility] [address] [address] [address] Ambrosio Ramirez Protein [Mass/Vol] 7.5 g/dL Normal 6.4-8.2 [facility] Comment on above: Performed By: #### A 1C #### [facility] [address] [place] [address] Dr. Ambrosio Ramirez Sodium [Moles/Vol] 142 mmol/L Normal 136-145 [facility] Comment on above: Performed By: #### A 1C #### [facility] [address] [address] [address] Ambrosio Ramirez Urea nitrogen [Mass/Vol] 9.0 mg/dL Normal 7.0-18.0 [facility] Comment on above: Performed By: #### A 1C #### [facility] [address] [place] [address] Dr. Ambrosio Ramirez Urea nitrogen/Creatinine [Mass ratio] 16.7 mg/mg Normal [facility] Comment on above: Performed By: #### A 1C #### [facility] [address] [place] [address] Dr. Ambrosio Ramirez TSHon 03-12-2022 TSH 1.934 uIU/mL Normal 0.358-3.740 [facility] Comment on above: Performed By: #### A 1C #### [facility] [address] [place] [address] Dr. Ambrosio Ramirez XR TSPINE 3 VIEWSon [...] for this test is supported by the [place] of Health and Human Service's declaration that [...] #### [facility] [address] [place] [address] Dr. Ambrosio Ramirez INFLUENZA A AND B AGon 01-27 INFLUENZA A AG Negative Normal NEGATIVE SEE COMMENT [facility] Comment on above: Performed By: #### I NFLUAB #### [facility] [address] [place] [address] Dr. Ambrosio Ramirez INFLUENZA B AG Negative Normal NEGATIVE SEE COMMENT [facility] Comment on above: Performed By: #### I NFLUAB #### [facility] [address] [place] [address] Dr. Ambrosio Ramirez INTERNAL CONTROLS Within Normal Limits Normal Wi thin Normal Limits [facility] Comment on above: Performed By: #### I NFLUAB #### [facility] [id number] Ambrosio Ramirez XR CHEST 2 Von [...] Rapid Plasma Reagin, Quant Non-Reactive Normal NonRea<1:1 [facility] Comment on above: Result Comment: Plea se Note: This test does not meet current guidelines for screening and diagnosis of syphilis. This test is intended for following treatment response in patients being treated for syphilis infection. To screen for syphilis infection, a reflex cascade that includes both RPR and a treponema-specific assay should be utilized, such as Treponema pallidum (Syphilis) Screening Benedict (783452) or Rapid Plasma Reagin (RPR) Test With Reflex to Quantitative RPR and Confirmatory Treponema pallidum Antibodies ([id number]). Performed By: #### R PRQ #### [facility] [address] [place] [address] Dr. Ambrosio Ramirez HEP B SURFACE ANTIGEN SCREEN on 08-24-2021 HBsAg Screen Negative Normal Negative [facility] Comment on above: Performed By: #### H BSANS #### [facility] [address] [place] [address] Dr. Ambrosio Ramirez HEPATITIS C ANTIBODYon 08-24 Hep C Virus Ab <0.1 Normal 0.0-0.9 [facility] Comment on above: Result Comment: Nega [...] Hepatitis C Virus (HCV) RNA, Diagnosis, JAYY ([id number]) and Hepatitis C Virus (HCV) Antibody with reflex to Quantitative Real-time PCR ([id number]). Performed By: #### H CV #### [facility] [address] [place] [address] Dr. Ambrosio Ramirez INSULINon 08-23-2021 Insulin 5.0 uIU/mL Normal 2.6-24.9 [facility] Comment on above: Performed By: #### A 1C #### [facility] [address] [place] [address] Dr. Ambrosio Ramirez OCC BLD IMMUNO SCREENon OCCULT BLOOD Negative Normal NEGATIVE [facility] Comment on above: Performed By: #### O BSCRN #### [facility] [address] [place] [address] Dr. Ambrosio Ramirez CBC AUTO DIFFon 08-22-2021 BASO # 0.1 103/ul Normal 0.0-0.1 [facility] Comment on above: Performed By: #### O BSCRN #### [facility] [address] [place] [address] Dr. Ambrosio Ramirez Basophils/100 WBC (Bld) 1.0 % Normal 0.2-2.0 [facility] Comment on above: Performed By: #### O BSCRN #### [facility] [address] [place] [address] Dr. Ambrosio Ramriez EO # 0.1 103/ul Normal 0.0-0.7 [facility] Comment on above: Performed By: #### O BSCRN #### [facility] [address] [place] [address] Dr. Ambrosio Ramirez Eosinophils/100 WBC (Bld) 1.8 % Normal 0.9-7.0 [facility] Comment on above: Performed By: #### O BSCRN #### [facility] [address] [place] [address] Dr. Amrbosio Ramirez Erythrocyte distribution width (RBC) [Ratio] 11.9 % Normal 11.0-15.0 [facility] Comment on above: Performed By: #### O BSCRN #### [facility] [address] [place] [address] Dr. Ambrosio Ramirez Hematocrit (Bld) [Volume fraction] 48.6 % Critically high 36.0-48.0 [facility] Comment on above: Performed By: #### O BSCRN #### [facility] [address] [place] [address] Dr. Ambrosio Ramirez Hemoglobin (Bld) [Mass/Vol] 16.3 g/dL Critically high 12.0-16.0 [facility] Comment on above: Performed By: #### O BSCRN #### [facility] [address] [place] [address] Dr. Ambrosio Ramirez IG # 0.03 10e3/ul Normal 0.00-0.03 [facility] Comment on above: Performed By: #### O BSCRN #### [facility] [address] [place] [address] Dr. Ambrosio Ramirez IG % 0.6 % Critically high 0.0-0.5 [facility] Comment on above: Performed By: #### O BSCRN #### [facility] [address] [place] [address] Dr. Ambrosio Ramirez LYMPH # 2.4 103/ul Normal 1.2-3.8 [facility] Comment on above: Performed By: #### O BSCRN #### [facility] [address] [place] [address] Dr. Ambrosio Ramirez Lymphocytes/100 WBC (Bld) 46.9 % Normal 20.5-60.0 [facility] Comment on above: Performed By: #### O BSCRN #### [facility] [address] [place] [address] Dr. Ambrosio Ramirez MANUAL DIFF REQ NO Normal [facility] Comment on above: Performed By: #### O BSCRN #### [facility] [address] [place] [address] Dr. Ambrosio Ramirez MCH (RBC) [Entitic mass] 34.9 pg Critically high 26.7-34.0 [facility] Comment on above: Performed By: #### O BSCRN #### [facility] [address] [place] [address] Dr. Ambrosio Ramirez MCHC (RBC) [Mass/Vol] 33.5 g/dL Normal 29.9-35.2 [facility] Comment on above: Performed By: #### O BSCRN #### [facility] [address] [place] [address] Dr. Ambrosio Ramirez MCV (RBC) [Entitic vol] 104.1 fL Critically high 81.0-99.0 [facility] Comment on above: Performed By: #### O BSCRN #### [facility] [address] [place] [address] Dr. Ambrosio Ramirez MONO # 0.4 103/ul Normal 0.3-0.8 [facility] Comment on above: Performed By: #### O BSCRN #### [facility] [address] [place] [address] Dr. Ambrosio Ramirez Monocytes/100 WBC (Bld) 8.2 % Normal 1.7-12.0 [facility] Comment on above: Performed By: #### O BSCRN #### [facility] [address] [place] [address] Dr. Ambrosio Ramirez NEUT # 2.1 103/ul Normal 1.4-6.5 [facility] Comment on above: Performed By: #### O BSCRN #### [facility] [address] [place] [address] Dr. Ambrosio Ramirez Neutrophils/100 WBC (Bld) 41.5 % Critically low 43.0-75.0 [facility] Comment on above: Performed By: #### O BSCRN #### [facility] [address] [place] [address] Dr. Ambrosio Ramirez Platelet mean volume (Bld) [Entitic vol] 9.3 fL Critically low 9.5-13.5 [facility] Comment on above: Performed By: #### O BSCRN #### [facility] [address] [place] [address] Dr. Ambrosio Ramirez PLT 210 103/ul Normal 150-450 [facility] Comment on above: Performed By: #### O BSCRN #### [facility] [address] [place] [address] Dr. Ambrosio Ramirez RBC 4.67 106/ul Normal 4.20-5.40 [facility] Comment on above: Performed By: #### O BSCRN #### [facility] [address] [place] [address] Dr. Ambrosio Ramirez WBC 5.0 103/ul Normal 4.0-11.0 [facility] Comment on above: Performed By: #### O BSCRN #### [facility] [address] [place] [address] Dr. Ambrosio Ramirez FREE THYROXINE INDEX T7on FTI 2.72 Normal 1.30-4.50 [facility] Comment on above: Performed By: #### O BSCRN #### [facility] [address] [place] [address] Dr. Ambrosio Ramirez T3U 32.0 % Normal 30.0-39.0 [facility] Comment on above: Performed By: #### O BSCRN #### [facility] [address] [place] [address] Dr. Ambrosio Ramirez T4 [Mass/Vol] 8.50 ug/dL Normal 4.80-13.90 [facility] Comment on above: Performed By: #### O BSCRN #### [facility] [address] [place] [address] Dr. Ambrosio Ramirez GLYCOHEMOGLOBIN A1Con 2021 ADA RECOMMENDATION SEE BELOW Normal [facility] Comment on above: Result Comment: ADA RECOMMENDED LIMIT 4.0 - 6.0 ADA THERAPEUTIC TARGET < 7.0 ACTION SUGGESTED > 7.0 Performed By: #### A 1C #### [facility] [address] [place] [address] Dr. Ambrosio Ramirez Glucose [Mass/Vol] 108 mg/dL Normal [facility] Comment on above: Performed By: #### A 1C #### [facility] [address] [address] [address] Ambrosio Ramirez HbA1c (Bld) [Mass fraction] 5.4 % Normal 4.5-6.2 [facility] Comment on above: Performed By: #### A 1C #### [facility] [address] [address] [address] Ambrosio Ramirez HIV 1/2 RAPID (EXPOSURE ONLY )on 08-22-2021 HIV AB Negative Normal [facility] Comment on above: Performed By: #### A 1C #### [facility] [address] [address] [address] Ambrosio Raimrez HIV AG Negative Normal [facility] Comment on above: Performed By: #### A 1C #### [facility] [address] [address] [address] Ambrosio Ramirez INTERNAL CONTROLS Within Normal Limits Normal Wi thin Normal Limits [facility] Comment on above: Performed By: #### A 1C #### [facility] [address] [address] [address] Ambrosio Ramirez RAPID HIV INFO SEE BELOW Normal [facility] Comment on above: Result Comment: This test is used for the initial screening of the exposure source. Confirmation of all results will be obtained through reference lab testing. Performed By: #### A 1C #### [facility] [address] [place] [address] Dr. Ambrosio Ramirez IRONon 08-22-2021 Iron [Mass/Vol] 137.0 ug/dL Normal 50.0-170.0 [facility] Comment on above: Performed By: #### I HAMLET #### [facility] [address] [place] [address] Dr. Ambrosio Ramirez LIPID PROFILEon 08-22-2021 CHOL-HDL RATIO NORM SEE BELOW Normal [facility] Comment on above: Result Comment: 3.3 - 4.4 LOW RISK 4.4 - 7.1 AVERAGE RISK 7.1 - 11.0 MODERATE RISK >11.0 HIGH RISK Performed By: #### O BSCRN #### [facility] [address] [place] [address] Dr. Ambrosio Ramirez Cholesterol [Mass/Vol] 251 mg/dL Critically high <=200 [facility] Comment on above: Performed By: #### O BSCRN #### [facility] [address] [address] [address] Ambrosio Ramirez Cholesterol in HDL [Mass/Vol] 67 mg/dL Critically high 40-60 [facility] Comment on above: Performed By: #### O BSCRN #### [facility] [address] [address] [address] Ambrosio Ramirez Cholesterol in LDL [Mass/Vol] 154.8 mg/dL Normal [facility] Comment on above: Performed By: #### O BSCRN #### [facility] [address] [address] [address] Ambrosio Ramirez Cholesterol.total/Cho lesterol in HDL [Mass ratio] 3.7 {ratio} Normal [facility] Comment on above: Performed By: #### O BSCRN #### [facility] [address] [address] [address] Ambrosio Ramirez HDL NORMAL > or = 60 mg/dl - LO W CARDIOVASCULAR RISK <40 mg/dl - HIGH CARDIOVASCULAR RISK Normal [facility] Comment on above: Performed By: #### O BSCRN #### [facility] [address] [address] [address] Ambrosio Ramirez LDL CALC NORMAL SEE BELOW Normal [facility] Comment on above: Result Comment: <100 mg/dl OPTIMAL 100 - 129 mg/dl NEAR OR ABOVE OPTIMAL 130 - 159 mg/dl BORDERLINE HIGH 160 - 189 mg/dl HIGH >190 mg/dl VERY HIGH Performed By: #### O BSCRN #### [facility] [address] [address] [address] Ambrosio Ramirez Triglyceride [Mass/Vol] 146 mg/dL Normal <=150 [facility] Comment on above: Performed By: #### O BSCRN #### [facility] [address] [address] [address] Ambrosio Ramirez VLDL CALC 29.2 mg/dL Normal [facility] Comment on above: Performed By: #### O BSCRN #### [facility] [address] [address] [address] Ambrosio Ramirez PROF 14(COMP METB)on 022 Albumin [Mass/Vol] 4.3 g/dL Normal 3.4-5.0 [facility] Comment on above: Performed By: #### O BSCRN #### [facility] [address] [place] [address] Dr. Ambrosio Ramirez Albumin/Globulin [Mass ratio] 1.2 {ratio} Normal [facility] Comment on above: Performed By: #### O BSCRN #### [facility] [address] [place] [address] Dr. Ambrosio Ramirez ALP [Catalytic activity/Vol] 57 U/L Normal 46-116 [facility] Comment on above: Performed By: #### O BSCRN #### [facility] [address] [place] [address] Dr. Ambrosio Ramirez ALT [Catalytic activity/Vol] 56 U/L Normal 14-59 [facility] Comment on above: Performed By: #### O BSCRN #### [facility] [address] [place] [address] Dr. Ambrosio Ramirez Anion gap [Moles/Vol] 11.5 mmol/L Normal [facility] Comment on above: Performed By: #### O BSCRN #### [facility] [address] [place] [address] Dr. Ambrosio Ramirez AST [Catalytic activity/Vol] 75 U/L Critically high 15-37 [facility] Comment on above: Performed By: #### O BSCRN #### [facility] [address] [place] [address] Dr. Ambrosio Ramirez Bilirubin [Mass/Vol] 0.4 mg/dL Normal 0.2-1.0 [facility] Comment on above: Performed By: #### O BSCRN #### [facility] [address] [place] [address] Dr. Ambrosio Ramirez Calcium [Mass/Vol] 8.7 mg/dL Normal 8.5-10.1 [facility] Comment on above: Performed By: #### O BSCRN #### [facility] [address] [address] [address] Ambrosio Ramirez Chloride [Moles/Vol] 105 mmol/L Normal 98-107 [facility] Comment on above: Performed By: #### O BSCRN #### [facility] [address] [address] [address] Ambrosio Ramirez CO2 [Moles/Vol] 30.3 mmol/L Normal 21.0-32.0 [facility] Comment on above: Performed By: #### O BSCRN #### [facility] [address] [address] [address] Ambrosio Ramirez Creatinine [Mass/Vol] 0.67 mg/dL Normal 0.55-1.02 [facility] Comment on above: Performed By: #### O BSCRN #### [facility] [address] [place] [address] Dr. Ambrosio Ramirez EGFR-AF CHILEAN >60 Normal >=60 [facility] Comment on above: Performed By: #### O BSCRN #### [facility] [address] [address] [address] Ambrosio Ramirez EGFR-NON AF CHILEAN >60 Normal >=60 [facility] Comment on above: Performed By: #### O BSCRN #### [facility] [address] [address] [address] Ambrosio Ramirez Globulin (S) [Mass/Vol] 3.7 g/dL Normal [facility] Comment on above: Performed By: #### O BSCRN #### [facility] [address] [address] [address] Ambrosio Ramirez Glucose [Mass/Vol] 93 mg/dL Normal 74-106 [facility] Comment on above: Performed By: #### O BSCRN #### [facility] [address] [address] [address] Ambrosio Ramirez Potassium [Moles/Vol] 4.8 mmol/L Normal 3.5-5.1 [facility] Comment on above: Performed By: #### O BSCRN #### [facility] [address] [place] [address] Dr. Ambrosio Ramirez Protein [Mass/Vol] 8.0 g/dL Normal 6.4-8.2 [facility] Comment on above: Performed By: #### O BSCRN #### [facility] [address] [place] [address] Dr. Ambrosio Ramirez Sodium [Moles/Vol] 142 mmol/L Normal 136-145 [facility] Comment on above: Performed By: #### O BSCRN #### [facility] [address] [place] [address] Dr. Ambrosio Ramirez Urea nitrogen [Mass/Vol] 8.0 mg/dL Normal 7.0-18.0 [facility] Comment on above: Performed By: #### O BSCRN #### [facility] [address] [place] [address] Dr. Ambrosio Ramirez Urea nitrogen/Creatinine [Mass ratio] 11.9 mg/mg Normal [facility] Comment on above: Performed By: #### O BSCRN #### [facility] [address] [place] [address] Dr. Ambrosio Ramirez TSHon 08-22-2021 TSH 2.117 uIU/mL Normal 0.358-3.740 [facility] Comment on above: Performed By: #### O BSCRN #### [facility] [address] [place] [address] Dr. Ambrosio Ramirez XR CSPINE MIN 4 [...] Cervical fusion hardware with no mechanical failure [id number] degenerative changes of the cervical thoracic spine Electronically authenticated by: GEORGE ROWE Date: 2021-08-22 21:07 Normal [facility] Vital Signs Date Time Vital Sign Value Performing Clinician Facility 01-12-2024 13:34-0500 Blood Pressure Location [facility] 01-12-2024 13:34-0500 Diastolic blood pressure 67 mm[Hg] LEIGH AMBER [facility] 01-12-2024 13:34-0500 Heart rate 84 /min LEIGH AMBER [facility] 01-12-2024 13:34-0500 Respiratory rate 20 /min LEIGH AMBER [facility] 01-12-2024 13:34-0500 Systolic blood pressure 117 mm[Hg] LEIGH AMBER [facility] 05-09-2022 10:14-0400 Diastolic blood pressure 85 mm[Hg] DRY CLEANING COUNTER CLERK-C Ama Jerry Work Phone: [facility] 05-09-2022 10:14-0400 Heart rate 99 /min DRY CLEANING COUNTER CLERK-C Ama Jerry Work Phone: [facility] 05-09-2022 10:14-0400 Respiratory rate 18 /min DRY CLEANING COUNTER CLERK-C Ama Jerry Work Phone: [facility] 05-09-2022 10:14-0400 SaO2% (BldA) [Mass fraction] 99 % DRY CLEANING COUNTER CLERK-C Ama Jerry Work Phone: [facility] 05-09-2022 10:14-0400 Systolic blood pressure 124 mm[Hg] DRY CLEANING COUNTER CLERK-C Ama Jerry Work Phone: [facility] 05-09-2022 08:04-0400 Body height 180.34 cm DRY CLEANING COUNTER CLERK-C Ama Jerry Work Phone: [facility] 05-09-2022 08:04-0400 Body weight 58.96 kg SHANE-C Ama Edwards Work Phone: [facility] 05-01-2022 11:15-0500 Body height Imad Asaad Other [facility] Other 05-01-2022 11:15-0500 Body mass index (BMI) [Ratio] 18.13 kg/m2 Imad Asaad Other [facility] Other 05-01-2022 11:15-0500 Body weight 58.97 kg Imad Asaad Other [facility] Other 05-01-2022 11:15-0500 Diastolic blood pressure 102 mm[Hg] Imad Asaad Other [facility] Other 05-01-2022 11:15-0500 Respiratory rate 16 /min Imad Asaad Other [facility] Other 05-01-2022 11:15-0500 Systolic blood pressure 158 mm[Hg] Imad Asaad Other [facility] Other Encounters Encounter Date Encounter Type Care Provider Facility Start: 02-08-2024 End: 02-08-2024 ambulatory Manuel Reynaga MD Facility:[facility] Start: 02-02-2024 End: 02-02-2024 ambulatory Ama Edwards Facility:[facility] Start: 01-12-2024 End: 01-12-2024 Lab Drop off [facility] Start: 01-12-2024 End: 01-12-2024 ambulatory LEIGH CLARK Facility:[facility] Start: 01-12-2024 End: 01-12-2024 Patient encounter procedure [facility] CL[facility] Start: 12-28-2023 End: 12-28-2023 ambulatory Manuel Reynaga MD Facility: [facility] Start: 12-22-2023 End: 12-22-2023 ambulatory LEIGH CLARK Facility:[facility] Start: 12-22-2023 End: 12-22-2023 Patient encounter procedure LEIGH Mcleod AMBER [facility] Start: 12-14-2023 End: 12-14-2023 ambulatory Manuel Reynaga MD Facility: [facility] Start: 11-23-2023 ambulatory [facility] CLARK Facility :[facility] Start: 09-21-2023 End: 09-21-2023 ambulatory Manuel Reynaga MD Facility: [facility] Start: 08-31-2023 End: 08-31-2023 ambulatory Andkrishna Lugoitis Facility: [facility] Start: 08-17-2023 End: 08-17-2023 ambulatory Manuel Lugoitis Facility: [facility] Start: 07-06-2023 End: 07-06-2023 ambulatory Andkrishna Lugoitis Facility: [facility] Start: 05-09-2022 End: 05-09-2022 Admission to same day surgery center DRY CLEANING COUNTER CLERK-C Ama Edwards Work Phone: [facility] Work Phone: Start: 05-09-2022 End: 05-09-2022 ambulatory DRY CLEANING COUNTER CLERK-C Ama Edwards Work Phone: [facility] Work Phone: Start: 05-02-2022 End: 05-02-2022 ambulatory Imad Asaad Other [facility] Other Start: 05-02-2022 Telephone encounter Imad Asaad [facility] Start: 05-01-2022 End: 05-01-2022 ambulatory Imad Asaad Other [facility] Other Start: 05-01-2022 Office consultation new/estab patient [...] Procedure Detail Performing Clinician Start: 05-09-2022 Esophagogastroduodenoscopy DRY CLEANING COUNTER CLERK-C Ama patel Work Phone: Colonoscopy [facility] Screening for malign ant neoplasm of colon Imad Asaad Other Surgical procedure o n cervical spine [facility] Tonsillectomy [facility] Plan of Treatment Date Care Activity Detail Author Start: 05-09-2022 [facility] Patient Education Colon Polyps H emorrhoids (DC) Diverticulosis (DC) Gastritis (DC) [facility] Work Phone: Payers Date Payer Category Payer Self-pay 2022 Unknown 1960 Unknown [id number] 2.16.84 [id number] 1960 Unknown [id number] 2.16.84 [id number] 1960 Unknown [id number] 2.16.84 [id number] 1962 Unknown [id number] 2.16.84 [id number] 1962 Unknown [id number] 2.16.84 0.1.546084.3.579.2.593 1962 Unknown [id number] 2.16.84 [id number] 1962 Unknown [id number] 2.16.84 0.1.924291.3.579.2.593 1962 Unknown [id number] 2.16.8 40.1.098583.3.579.2.727 1962 Unknown [id number] 2.16.8 40.1.273063.3.579.2.727 1962 Unknown [id number] 2.16. 840.1.563802.3.579.2.196 1962 Unknown [id number] 2.16. 840.1.383765.3.579.2.196 1962 Unknown [id number] 2.16. 840.1.982155.3.579.2.196 1962 Unknown [id number] 2.16. 840.1.379503.3.579.2.196 1962 Unknown [id number] 2.16. 840.1.313748.3.579.2. 1962 Unknown [id number] 2.16. 840.1.681923.3.579.2.196 1962 Unknown [id number] 2.16. 840.1.175981.3.579.2.196 1957 Medicare [id number] 21 [id number] 1959 Unknown [id number] 1959 Unknown [id number] 1959 Unknown [id number] Unknown [id number] 2.16.8 [id number] Social History Date Type Detail Facility Start: 05-09-2022 Tobacco smoking stat [facility] Smoker (finding) [facility] Start: 1960 Sex Assigned At Female F [facility] Sex Assigned At [facility] Tobacco smoking status No Smokin g Status Entered [facility] Start: 01-12-2024 Tobacco smoking status Heavy t obacco smoker (finding) [facility] Goals Date Patient Goal Desired Activity /State Functional Status Date Assessment Result Facility 01-12-2024 Functional Status N/A [facility] Clinical Notes 05-01-2022 to 01-12-2024 Note [...] your health care provider. General instructions Take fyxc-[id number] and prescription medicines only as told by [...] provider. Document Revised: 10/29/2020 Document Reviewed: 10/29/2020 [employer] Patient Education 2023 [employer]. Follow Up Care 01/05/2024 13:19:21 With:AMBER MONAHAN, LEIGH Mcleod, URL Address: [address] [place] [address] Business (1) When: only if needed [facility] 01-12-2024 Note Patient Education Obstetrics and [...] health care provider. General instructions ??? Take ubpu-ajv-wtyxleq and prescription medicines only as told by [...] drink, and whe (more content not included)... [facility] 01-12-2024 Evaluation + Plan note Diagnostic Tests PendingUrine Culture 01/12/24 [facility] 05-09-2022 Procedure note [facility] 05-01-2022 Evaluation note Encounter Date Diagnosis Assessment Notes Apr, Dysphagia (ICD-10 - R13.10) Apr, Weight loss (ICD-10 - R63.4) Apr, Colon cancer screening (ICD-10 - Z12.11) [facility] Other Evaluation + Plan note No data available for this section [facility] evaluation noteNo assessment information available [facility] Work Phone: Evaluation noteNo InformationNort Sensorly Other History general Narrative - Reported* Type Description Date Medical History Anxiety/Depression Surgical History Neck surgery Surgical History Tonsillectomy Hospitalization History See above [facility] Other Hospital Discharge instructions Additional Instructions DISCHARGE [...] NOT operate machinery such as power tools, [employer] mowers, snow blowers, sewing machines, etc. for [...] -Follow up with PCP. - Office number [phone]. [facility] Work Phone: Hospital Discharge instructions No data available for this section [facility] progress note No data available for this section [facility] Chief Complaint and Reason for Visit [...] and content) DATE CREATED AUTHOR 07/02/2022 [facility] DATE CREATED AUTHOR AUTHOR'S ORGANIZ ATION 01/15/2024 [facility] DATE CREATED AUTHOR AUTHOR'S ORGANIZ ATION 01/17/2024 [facility] DATE CREATED AUTHOR AUTHOR'S ORGANIZ ATION 02/06/2024 [facility] DATE CREATED AUTHOR AUTHOR'S ORGANIZ ATION 02/11/2024 [facility] DATE CREATED AUTHOR AUTHOR'S ORGANIZ ATION 02/17/[address] [facility] FOR RECORDS PERTAINING TO PATIENTS WHO [...] BE BASED ON THE PRIMARY CLINICAL RECORDS. [employer] [facility]. provides no warranty or guarantee of the accuracy or completeness of information in this document.
== END 2024-04-01 09:57 | disposition home or self-care (01) ==
LOC: EC 09:56
PROVIDERS: PCP Nurse Practitioner Family; Visit Provider Orthopaedic Surgery Orthopaedic Surgery of the Spine
DX: M54.50 Low back pain, unspecified (principal)
CPT/HCPCS: 72110

== ENCOUNTER 2024-07-11 13:33 | Outpatient (OUT) | payer MEDICARE, OTHER, MEDICAID, SELFPAY ==
--- NOTE | 2024-07-11 13:38 | MR_ITS ---
The [address] [address] Patient Name: CARLA ABDI MRN: [facility]:[id number] date: 1960 Sex: F Assigned Patient Location: MRI Current Patient Location: MRI Accession/Order Number: [id number] Exam Date: 07/11/2024 16:07 Report Date: 07/11/2024 16:15 At the request of: YEIMI LENNON Procedure: MR cervical spine wo con MR cervical spine wo con 07/11/2024 3:03 PM SIGNS AND SYMPTOMS: Chronic back pain radiating into shoulders PROTOCOL: Multiplanar multisequence MR images of the cervical spine without IV contrast COMPARISON: 07/24/2023 FINDINGS: The bones of the cervical spine are in anatomic alignment. There is preservation of vertebral body heights. There is anterior and intervertebral fusion from C4 through C7. There is accompanying anterior fusion hardware at these levels. The marrow signal is within normal limits. The cord is normal in signal. No epidural or paraspinous fluid collection is appreciated. The visualized paraspinous soft tissues are within normal limits. The prevertebral soft tissues are within normal limits. At C2-C3: There is a normal disc, central canal, and neural foramen. At C3-C4: There is facet hypertrophy without to joint spurring contributing to moderate left neural foraminal narrowing. There is mild spinal canal narrowing. This is unchanged. At C4-C5: There is left-sided facet hypertrophy and operative joint spurring with mild left neural foraminal narrowing. No significant spinal canal narrowing. This is unchanged. At C5-C6: There is uncovertebral joint spurring with moderate left and mild right neural foraminal narrowing. There is mild spinal canal stenosis. This is unchanged. At C6-C7: There is a normal disc, central canal, and neural foramen. At C7-T1: There is a normal disc, central canal, and neural foramen. MR/MR cervical spine wo con IMPRESSION: Anterior and intervertebral fusion hardware is redemonstrated from C4 through C7. At C3-C4: There is facet hypertrophy without to joint spurring contributing to moderate left neural foraminal narrowing. There is mild spinal canal narrowing. This is unchanged. At C4-C5: There is left-sided facet hypertrophy and operative joint spurring with mild left neural foraminal narrowing. No significant spinal canal narrowing. This is unchanged. At C5-C6: There is uncovertebral joint spurring with moderate left and mild right neural foraminal narrowing. There is mild spinal canal stenosis. This is unchanged. No cord compression or cord signal abnormality. Impression dictated by: Yevgeniy Lee M.D. 07/11/2024 4:15 PM Dictation Location: [place] [address] Electronically authenticated by: [id number] Y Date: 07/11/2024 16:15
--- OUTSIDE RECORDS SUMMARY | 2024-07-11 13:55 | XMS_ITS | CCD ---
Author Organization [facility] CliniSyia Care Team Providers Care American Sign Language Interpreter Name Role Phone MD Nesha Bryant Attending Provider [phone] JIE Edwards Primary Care Provider Nesha Bryant Unavailable AMA EDWARDS Attending Unavailable AMA EDWARDS Consulting Unavailable JERRY, AMA Primary Care Unavailable JERRY, AMA Admitting Unavailable JERRY, AMA Attending Unavailable JERRY, AMA Primary Care Unavailable JERRY AMA Admitting Unavailable PAULINOLOLIS Admitting Unavailable LOLIS BOB Attending Unavailable PAULINOLOLIS TRAN Consulting Unavailable JERRY, AMA Primary Care Unavailable [...] Care Physician AMA EDWARDS Primary Care Physician [phone] LEIGH CLARK Attending Unavailable Thompson Diane Referring [...] Medication Allergies] Propensity to adverse reactions (disorder) [facility] Repository Medications Current Medications Medication Drug [...] Ordered Start: 05-12-2022 take 1 capsule by [facility] once daily Omeprazole 40 MG 1 capsule 30 minutes before morning meal Orally Once a day for 30 days Apr, Active 12 hr orphenadrine citrate 100 mg extended release oral tablet (2 sources) Muscle Relaxant Start: 01-12-2024 orphenadrine 1 00 mg ER Tab 100 mg = 1 tab(s) Start Date: 01/12/24 Status: Ordered polyethylene glycol 3350 736640 mg / potassium chloride 2970 mg / sodium bicarbonate 6740 mg / sodium chloride 5860 mg / sodium sulfate 68685 mg powder for oral solution (2 sources) [...] [facility] 02-02-2024 L --- Specimen: [id number] Received: 02/03/24 Status: EDUARD Zaragoza Num: [id number] Spec Type: Surgical Subm Dr: Jose Matos MD Tissues: A Breast Core CALCIFICATIONS (RIGHT BREAST MICRO CALCIFICA) Procedures: ROSI/Sanya Ibrahim/Lindsay L4 Age/ Patient Sex Location Account Attending Physician Nancy Joyce 63/F [place] [id number] Ama Edwards CNP SPEC NUM: [id number] RECD: 02/03/24 STATUS: EDUARD ZARAGOZA NUM: [id number] KATY: 02/02/[address]: Jose Matos MD ENTERED: 02/03/24 [facility] DR: Keyur,Lab Ama Edwards, CLINICAL EDUCATOR SPEC TYPE: Surgical DEPT: RAMYA LOWE ENTERED BY: [id number] RECV BY: [id number] ORDERED: HE/6, Gross/Micro L4 ORDERED: HE/6, Gross/Micro [...] 28 hours and 30 minutes (3, ns, [id number] A) GLENN Specimen: [id number] Received: 02/03/24 Status: EDUARD Nik Num: [id number] Spec Type: Surgical Subm Dr: Jose Matos MD Tissues: A Breast Core CALCIFICATIONS (RIGHT BREAST MICRO CALCIFICA) Procedures: HE/6, Gross/Micro L4 Patient: aNncy Joyce [id number] (Continued) Specimen: [id number] Received: 02/03/24 (Continued) Signed (signature on file) Glenn Rogel MD 02/04/24 1105 Specimen: [id number] Received: 02/03/24 Status: EDUARD Zaragoza Num: [id number] Spec Type: Surgical Subm Dr: Jose Matos MD Tissues: A Breast Core CALCIFICATIONS (RIGHT BREAST MICRO CALCIFICA) Procedures: HE/6, Sanya/Lindsay L4 Patient: Nancy Joyce Nuria [id number] (Continued) Specimen: [id number] Received: 02/03/24 (Continued) Microscopic Description Microscopic examination is performed. CPT Codes 33126 Specimen: [id number] Received: 02/03/24 Status: EDUARD Zaragoza Num: [id number] Spec Type: Surgical Subm Dr: Jose Matos MD Tissues: A Breast Core CALCIFICATIONS (RIGHT BREAST MICRO CALCIFICA) Procedures: HE/6, Gross/Micro L4 Patient: Nancy Joyce [id number] (Continued) Signed (signature on file) Glenn Rogel MD 02/04/24 1105 Normal [facility] C Urineon 01-14-2024 Bacteria identified [...] Locations R1: This test [facility] performed at[facility] [address] [place] [address], [facility]- , [place], Normal [facility] Comment on above: Performed By: #### 2 [id number] #### [facility] [address] [place] [address] URINALYSISOrdered By: SYSTEM SYSTEM on 01-12-2024 Bilirubin [...] that meet specific criteria set forth by [facility]. Glucose Ql (U) Negative Normal Negativemg/d L [facility] UA Auto SS Hemoglobin Auto test strip (U) [Mass/Vol] Trace mg/dL Invalid Interpretation Code Negativemg/d L [facility] [place] [place] UA Auto SS Ketones Auto test strip Ql (U) Negative Normal Negativemg/d L [facility] [place] [place] UA Auto SS Leukocyte esterase Auto test strip Ql (U) Negative Normal NegativeLeu/ uL [facility] [place] [place] UA Auto SS Nitrite Auto test strip Ql (U) Negative Normal Negativemg/d L [facility] [place] [place] UA Auto SS pH (U) 5.0 *NA* (01/12/24 2:07 PM) Invalid Interpretation Code 5.0 - 9.0 [facility] [place] [place] UA Auto SS Protein Ql (U) Negative Normal Negativemg/d L [facility] [place] [place] UA Auto SS Specific gravity (U) [Rel density] 1.012 *NA* (01/12/24 2:07 PM) Invalid Interpretation Code 1.005 - 1.030 [facility] [place] [place] UA Auto SS Urobilinogen (U) [Mass/Vol] Negative Normal Negativemg/d L [facility] [place] [place] UA Auto SS URINALYSISOrdered By: Alexandra Godoy on 01-12-2024 UA Spec Desc Random Urine (01/12/24 2:07 PM) Normal [facility] [place] [place] UA Auto SS Urinalysis with Microon 12-24 Bilirubin Ql (U) Negative Normal Negative [facility] Comment on above: Performed By: #### 4 [id number] #### [facility] [address] [place] [address] Clarity (U) Clear Normal Clear [facility] Comment on above: Performed By: #### 4 [id number] #### [facility] [address] [place] [address] Color (U) Yellow Normal Yellow [facility] Comment on above: Result Comment: Micr oscopic readings are only performed on those samples that meet specific criteria set forth by [facility]. Performed By: #### 4 [id number] #### [facility] [address] [place] [address] Glucose Ql (U) Negative Normal Negative [facility] Comment on above: Performed By: #### 4 [id number] #### [facility] [address] [place] [address] Hemoglobin Auto test strip (U) [Mass/Vol] Trace Abnormal Negative [facility] Comment on above: Performed By: #### 4 [id number] #### [facility] [address] [place] [address] Ketones Auto test strip Ql (U) Negative Normal Negative [facility] Comment on above: Performed By: #### 4 [id number] #### [facility] [address] [place] [address] Leukocyte esterase Auto test strip Ql (U) Negative Normal Negative [facility] Comment on above: Performed By: #### 4 [id number] #### [facility] [address] [place] [address] Nitrite Auto test strip Ql (U) Negative Normal Negative [facility] Comment on above: Performed By: #### 4 [id number] #### [facility] [address] [place] [address] pH (U) 5.0 [pH] Invalid Interpretation Code 5.0-9.0 [facility] Comment on above: Performed By: #### 4 [id number] #### [facility] [address] [place] [address] Protein Ql (U) Negative Normal Negative [facility] Comment on above: Performed By: #### 4 [id number] #### [facility] [address] [place] [address] Specific gravity (U) [Rel density] 1.012 Invalid Interpretation Code 1.005-1.030 [facility] Comment on above: Performed By: #### 4 [id number] #### [facility] [address] [place] [address] Urobilinogen (U) [Mass/Vol] Negative Normal Negative [facility] Comment on above: Performed By: #### 4 [id number] #### [facility] [address] [place] [address] Type of Urine collection method Random Urine Normal [facility] Comment on above: Performed By: #### 4 [id number] #### [facility] [address] [place] [address] Urology Office/Clinic Noteon 01-12-2024 Urology Office/Clinic Note [...] E&M of New Patient Moderate 45-59 Min 70871 2. Asymptomatic microscopic hematuria (R31.21: Asymptomatic microscopic [...] E&M of New Patient Moderate 45-59 Min 57143 Orders: [id number] Measure Post Void residual urine and/or bladder capacity by US- non-imaging Urinalysis with Micro Urine Culture Urnls Dip Stick Auto w/o Microscopy POC 34081 Follow-up With When Contact Information AMBER MONAHAN, LEIGH Mcleod, URL Only if needed [address] [place] [address] Business (1) Additional Instructions: Patient [...] Dipstick: Negativ (more content not included)... Normal [facility] Comment on above: Result Comment: Elec [...] by: JOSE MATOS Date: 2022-03-25 13:[address] [facility] INSULINon 03-13-2022 Insulin 3.9 uIU/mL Normal 2.6-24.[address] [facility] Comment on above: Performed By: #### O BSCRN #### [facility] [address] [place] [address] Dr. Ambrosio Ramirez XR CSPINE MIN 4 [...] JOSE MATOS Date: 2022-03-13 08:[address] [facility] CBC AUTO DIFFon 03-12-2022 BASO # 0.0 103/ul Normal 0.0-0.1 [facility] Comment on above: Performed By: #### C BC #### [facility] [address] [place] [address] Dr. Ambrosio Ramirez Basophils/100 WBC (Bld) 0.7 % Normal 0.2-2.0 [facility] Comment on above: Performed By: #### C BC #### [facility] [address] [place] [address] Dr. Ambrosio Ramirez EO # 0.1 103/ul Normal 0.0-0.7 [facility] Comment on above: Performed By: #### C BC #### [facility] [address] [place] [address] Dr. Ambrosio Ramirez Eosinophils/100 WBC (Bld) 0.9 % Normal 0.9-7.0 [facility] Comment on above: Performed By: #### C BC #### [facility] [address] [place] [address] Dr. Ambrosio Ramirez Erythrocyte distribution width (RBC) [Ratio] 12.3 % Normal 11.0-15.0 [facility] Comment on above: Performed By: #### C BC #### [facility] [address] [place] [address] Dr. Ambrosio Ramirez Hematocrit (Bld) [Volume fraction] 46.0 % Normal 36.0-48.0 [facility] Comment on above: Performed By: #### C BC #### [facility] [address] [place] [address] Dr. Ambrosio Ramirez Hemoglobin (Bld) [Mass/Vol] 15.2 g/dL Normal 12.0-16.0 [facility] Comment on above: Performed By: #### C BC #### [facility] [address] [place] [address] Dr. Ambrosio Ramirez IG # 0.03 10e3/ul Normal 0.00-0.03 [facility] Comment on above: Performed By: #### C BC #### [facility] [address] [place] [address] Dr. Ambrosio Ramirez IG % 0.5 % Normal 0.0-0.5 [facility] Comment on above: Performed By: #### C BC #### [facility] [address] [place] [address] Dr. Ambrosio Ramirez LYMPH # 2.0 103/ul Normal 1.2-3.8 [facility] Comment on above: Performed By: #### C BC #### [facility] [address] [place] [address] Dr. Ambrosio Ramirez Lymphocytes/100 WBC (Bld) 35.0 % Normal 20.5-60.0 [facility] Comment on above: Performed By: #### C BC #### [facility] [address] [place] [address] Dr. Ambrosio Ramirez MANUAL DIFF REQ NO Normal [facility] Comment on above: Performed By: #### C BC #### [facility] [address] [place] [address] Dr. Ambrosio Ramirez MCH (RBC) [Entitic mass] 33.8 pg Normal 26.7-34.0 [facility] Comment on above: Performed By: #### C BC #### [facility] [address] [place] [address] Dr. Ambrosio Ramirez MCHC (RBC) [Mass/Vol] 33.0 g/dL Normal 29.9-35.2 [facility] Comment on above: Performed By: #### C BC #### [facility] [address] [address] [address] Ambrosio Ramirez MCV (RBC) [Entitic vol] 102.2 fL Critically high 81.0-99.0 [facility] Comment on above: Performed By: #### C BC #### [facility] [address] [address] [address] Ambrosio Ramirez MONO # 0.4 103/ul Normal 0.3-0.8 [facility] Comment on above: Performed By: #### C BC #### [facility] [address] [address] [address] Ambrosio Ramirez Monocytes/100 WBC (Bld) 7.2 % Normal 1.7-12.0 [facility] Comment on above: Performed By: #### C BC #### [facility] [address] [place] [address] Dr. Ambrosio Ramirez NEUT # 3.2 103/ul Normal 1.4-6.5 [facility] Comment on above: Performed By: #### C BC #### [facility] [address] [place] [address] Dr. Ambrosio Ramirez Neutrophils/100 WBC (Bld) 55.7 % Normal 43.0-75.0 [facility] Comment on above: Performed By: #### C BC #### [facility] [address] [place] [address] Dr. Ambrosio Ramirez Platelet mean volume (Bld) [Entitic vol] 9.1 fL Critically low 9.5-13.5 [facility] Comment on above: Performed By: #### C BC #### [facility] [address] [place] [address] Dr. Ambrosio Ramirez PLT 234 103/ul Normal 150-[address] [facility] Comment on above: Performed By: #### C BC #### [facility] [address] [place] [address] Dr. Ambrosio Ramirez RBC 4.50 106/ul Normal 4.20-5.[address] [facility] Comment on above: Performed By: #### C BC #### [facility] [address] [address] [address] Ambrosio Ramirez WBC 5.7 103/ul Normal 4.0-11.0 [facility] Comment on above: Performed By: #### C BC #### [facility] [address] [address] [address] Ambrosio Ramirez FREE THYROXINE INDEX T7on FTI 2.41 Normal 1.30-4.[address] [facility] Comment on above: Performed By: #### A 1C #### [facility] [address] [place] [address] Dr. Ambrosio Ramirez T3U 33.0 % Normal 30.0-39.[address] [facility] Comment on above: Performed By: #### A 1C #### [facility] [address] [place] [address] Dr. Ambrosio Ramirez T4 [Mass/Vol] 7.30 ug/dL Normal 4.80-13.90 [facility] Comment on above: Performed By: #### A 1C #### [facility] [address] [place] [address] Dr. Ambrosio Ramirez GLYCOHEMOGLOBIN A1Con 2022 ADA RECOMMENDATION SEE BELOW Normal [facility] Comment on above: Result Comment: ADA RECOMMENDED LIMIT 4.0 - 6.0 ADA THERAPEUTIC TARGET < 7.0 ACTION SUGGESTED > 7.0 Performed By: #### A 1C #### [facility] [address] [place] [address] Dr. Ambrosio Ramirez Glucose [Mass/Vol] 100 mg/dL Normal [facility] Comment on above: Performed By: #### A 1C #### [facility] [address] [place] [address] Dr. Ambrosio Ramirez HbA1c (Bld) [Mass fraction] 5.1 % Normal 4.5-6.2 [facility] Comment on above: Performed By: #### A 1C #### [facility] [address] [place] [address] Dr. Ambrosio Ramirez IRONon 03-12-2022 Iron [Mass/Vol] 148.0 ug/dL Normal 50.0-170.0 [facility] Comment on above: Performed By: #### O BSCRN #### [facility] [address] [address] [address] Ambrosio Ramirez LIPID PROFILEon 03-12-2022 CHOL-HDL RATIO NORM SEE BELOW Normal [facility] Comment on above: Result Comment: 3.3 - 4.4 LOW RISK 4.4 - 7.1 AVERAGE RISK 7.1 - 11.0 MODERATE RISK >11.0 HIGH RISK Performed By: #### A 1C #### [facility] [address] [address] [address] Ambrosio Ramirez Cholesterol [Mass/Vol] 234 mg/dL Critically high <=200 [facility] Comment on above: Performed By: #### A 1C #### [facility] [address] [address] [address] Ambrosio Ramirez Cholesterol in HDL [Mass/Vol] 71 mg/dL Critically high 40-60 [facility] Comment on above: Performed By: #### A 1C #### [facility] [address] [address] [address] Ambrosio Ramirez Cholesterol in LDL [Mass/Vol] 132.4 mg/dL Normal [facility] Comment on above: Performed By: #### A 1C #### [facility] [address] [address] [address] Ambrosio Ramirez Cholesterol.total/Cho lesterol in HDL [Mass ratio] 3.3 {ratio} Normal [facility] Comment on above: Performed By: #### A 1C #### [facility] [address] [address] [address] Ambrosio Ramirez HDL NORMAL > or = 60 mg/dl - LO W CARDIOVASCULAR RISK <40 mg/dl - HIGH CARDIOVASCULAR RISK Normal [facility] Comment on above: Performed By: #### A 1C #### [facility] [address] [address] [address] Ambrosio Ramirez LDL CALC NORMAL SEE BELOW Normal [facility] Comment on above: Result Comment: <100 mg/dl OPTIMAL 100 - 129 mg/dl NEAR OR ABOVE OPTIMAL 130 - 159 mg/dl BORDERLINE HIGH 160 - 189 mg/dl HIGH >190 mg/dl VERY HIGH Performed By: #### A 1C #### [facility] [address] [address] [address] Ambrosio Ramirez Triglyceride [Mass/Vol] 153 mg/dL Critically high <=150 [facility] Comment on above: Performed By: #### A 1C #### [facility] [address] [address] [address] Ambrosio Ramirez VLDL CALC 30.6 mg/dL Normal [facility] Comment on above: Performed By: #### A 1C #### [facility] [address] [address] [address] Ambrosio Ramirez PROF 14(COMP METB)on 023 Albumin [Mass/Vol] 4.2 g/dL Normal 3.4-5.0 [facility] Comment on above: Performed By: #### A 1C #### [facility] [address] [address] [address] Ambrosio Ramirez Albumin/Globulin [Mass ratio] 1.3 {ratio} Normal [facility] Comment on above: Performed By: #### A 1C #### [facility] [address] [address] [address] Ambrosio Ramirez ALP [Catalytic activity/Vol] 62 U/L Normal 46-116 [facility] Comment on above: Performed By: #### A 1C #### [facility] [address] [place] [address] Dr. Ambrosio Ramirez ALT [Catalytic activity/Vol] 27 U/L Normal 14-59 [facility] Comment on above: Performed By: #### A 1C #### [facility] [address] [address] [address] Ambrosio Ramirze Anion gap [Moles/Vol] 12.8 mmol/L Normal [facility] Comment on above: Performed By: #### A 1C #### [facility] [address] [address] [address] Ambrosio Ramirez AST [Catalytic activity/Vol] 39 U/L Critically high 15-37 [facility] Comment on above: Performed By: #### A 1C #### [facility] [address] [address] [address] Ambrosio Ramirez Bilirubin [Mass/Vol] 0.4 mg/dL Normal 0.2-1.0 [facility] Comment on above: Performed By: #### A 1C #### [facility] [address] [address] [address] Ambrosio Ramirez Calcium [Mass/Vol] 9.1 mg/dL Normal 8.5-10.1 [facility] Comment on above: Performed By: #### A 1C #### [facility] [address] [address] [address] Ambrosio Ramirez Chloride [Moles/Vol] 103 mmol/L Normal 98-107 [facility] Comment on above: Performed By: #### A 1C #### [facility] [address] [place] [address] Dr. Ambrosio Ramirez CO2 [Moles/Vol] 30.5 mmol/L Normal 21.0-32.0 [facility] Comment on above: Performed By: #### A 1C #### [facility] [address] [place] [address] Dr. Ambrosio Ramirez Creatinine [Mass/Vol] 0.54 mg/dL Critically low 0.55-1.02 [facility] Comment on above: Performed By: #### A 1C #### [facility] [address] [place] [address] Dr. Ambrosio Ramirez EGFR-AF MOZAMBICAN >60 Normal >=60 [facility] Comment on above: Performed By: #### A 1C #### [facility] [address] [place] [address] Dr. Ambrosio Ramirez EGFR-NON AF MOZAMBICAN >60 Normal >=60 [facility] Comment on above: Performed By: #### A 1C #### [facility] [address] [place] [address] Dr. Ambrosio Ramirez Globulin (S) [Mass/Vol] 3.3 g/dL Normal [facility] Comment on above: Performed By: #### A 1C #### [facility] [address] [place] [address] Dr. Ambrosio Ramirez Glucose [Mass/Vol] 88 mg/dL Normal 74-106 [facility] Comment on above: Performed By: #### A 1C #### [facility] [address] [address] [address] Ambrosio Ramirez Potassium [Moles/Vol] 4.3 mmol/L Normal 3.5-5.1 [facility] Comment on above: Performed By: #### A 1C #### [facility] [address] [address] [address] Ambrosio Ramirez Protein [Mass/Vol] 7.5 g/dL Normal 6.4-8.2 [facility] Comment on above: Performed By: #### A 1C #### [facility] [address] [place] [address] Dr. Ambrosio Ramirez Sodium [Moles/Vol] 142 mmol/L Normal 136-145 [facility] Comment on above: Performed By: #### A 1C #### [facility] [address] [address] [address] Ambrosio Ramirez Urea nitrogen [Mass/Vol] 9.0 mg/dL Normal 7.0-18.0 [facility] Comment on above: Performed By: #### A 1C #### [facility] [address] [place] [address] Dr. Ambrosio Ramirez Urea nitrogen/Creatinine [Mass ratio] 16.7 mg/mg Normal [facility] Comment on above: Performed By: #### A 1C #### [facility] [address] [place] [address] Dr. Ambrosio Ramirez TSHon 03-12-2022 TSH 1.934 uIU/mL Normal 0.358-3.740 [facility] Comment on above: Performed By: #### A 1C #### [facility] [address] [place] [address] Dr. Ambrosio Ramirez XR TSPINE 3 VIEWSon [...] for this test is supported by the [place] of Health and Human Service's declaration that [...] used). Performed By: #### C VDTB #### [facility] [address] [place] [address] Dr. Ambrosio Ramirez INFLUENZA A AND B AGon 01-27 INFLUENZA A AG Negative Normal NEGATIVE SEE COMMENT [facility] Comment on above: Performed By: #### I NFLUAB #### [facility] [address] [place] [address] Dr. Ambrosio Ramirez INFLUENZA B AG Negative Normal NEGATIVE SEE COMMENT [facility] Comment on above: Performed By: #### I NFLUAB #### [facility] [address] [place] [address] Dr. Ambrosio Ramirez INTERNAL CONTROLS Within Normal Limits Normal Wi thin Normal Limits [facility] Comment on above: Performed By: #### I NFLUAB #### [facility] [address] [id number] Ambrosio Ramirez XR CHEST 2 Von [...] Rapid Plasma Reagin, Quant Non-Reactive Normal NonRea<1:1 [facility] Comment on above: Result Comment: Plea se Note: This test does not meet current guidelines for screening and diagnosis of syphilis. This test is intended for following treatment response in patients being treated for syphilis infection. To screen for syphilis infection, a reflex cascade that includes both RPR and a treponema-specific assay should be utilized, such as Treponema pallidum (Syphilis) Screening [place] ([id number]) or Rapid Plasma Reagin (RPR) Test With Reflex to Quantitative RPR and Confirmatory Treponema pallidum Antibodies ([id number]). Performed By: #### R PRQ #### [facility] [address] [place] [address] Dr. Ambrosio Ramirez HEP B SURFACE ANTIGEN SCREEN on 08-24-2021 HBsAg Screen Negative Normal Negative [facility] Comment on above: Performed By: #### H BSANS #### [facility] [address] [place] [address] Dr. Ambrosio Ramirez HEPATITIS C ANTIBODYon 08-24 Hep C Virus Ab <0.1 Normal 0.0-0.9 [facility] Comment on above: Result Comment: Nega tive: [...] Hepatitis C Virus (HCV) RNA, Diagnosis, JAYY ([id number]) and Hepatitis C Virus (HCV) Antibody with reflex to Quantitative Real-time PCR ([id number]). Performed By: #### H CV #### [facility] [address] [place] [address] Dr. Ambrosio Ramirez INSULINon 08-23-2021 Insulin 5.0 uIU/mL Normal 2.6-24.9 [facility] Comment on above: Performed By: #### A 1C #### [facility] [address] [place] [address] Dr. Ambrosio Ramirez OCC BLD IMMUNO SCREENon OCCULT BLOOD Negative Normal NEGATIVE [facility] Comment on above: Performed By: #### O BSCRN #### [facility] [address] [place] [address] Dr. Ambrosio Ramirez CBC AUTO DIFFon 08-22-2021 BASO # 0.1 103/ul Normal 0.0-0.1 [facility] Comment on above: Performed By: #### O BSCRN #### [facility] [address] [place] [address] Dr. Ambrosio Ramirez Basophils/100 WBC (Bld) 1.0 % Normal 0.2-2.0 [facility] Comment on above: Performed By: #### O BSCRN #### [facility] [address] [place] [address] Dr. Ambrosio Ramirez EO # 0.1 103/ul Normal 0.0-0.7 [facility] Comment on above: Performed By: #### O BSCRN #### [facility] [address] [place] [address] Dr. Ambrosio Ramirez Eosinophils/100 WBC (Bld) 1.8 % Normal 0.9-7.[address] [facility] Comment on above: Performed By: #### O BSCRN #### [facility] [address] [place] [address] Dr. Ambrosio Ramirez Erythrocyte distribution width (RBC) [Ratio] 11.9 % Normal 11.0-15.0 [facility] Comment on above: Performed By: #### O BSCRN #### [facility] [address] [place] [address] Dr. Ambrosio Ramirez Hematocrit (Bld) [Volume fraction] 48.6 % Critically high 36.0-48.0 [facility] Comment on above: Performed By: #### O BSCRN #### [facility] [address] [place] [address] Dr. Ambrosio Ramirez Hemoglobin (Bld) [Mass/Vol] 16.3 g/dL Critically high 12.0-16.0 [facility] Comment on above: Performed By: #### O BSCRN #### [facility] [address] [place] [address] Dr. Ambrosio Ramirez IG # 0.03 10e3/ul Normal 0.00-0.03 [facility] Comment on above: Performed By: #### O BSCRN #### [facility] [address] [place] [address] Dr. Ambrosio Ramirez IG % 0.6 % Critically high 0.0-0.5 [facility] Comment on above: Performed By: #### O BSCRN #### [facility] [address] [place] [address] Dr. Ambrosio Ramirez LYMPH # 2.4 103/ul Normal 1.2-3.8 [facility] Comment on above: Performed By: #### O BSCRN #### [facility] [address] [place] [address] Dr. Ambrosio Ramirez Lymphocytes/100 WBC (Bld) 46.9 % Normal 20.5-60.[address] [facility] Comment on above: Performed By: #### O BSCRN #### [facility] [address] [place] [address] Dr. Ambrosio Ramirez MANUAL DIFF REQ NO Normal [facility] Comment on above: Performed By: #### O BSCRN #### [facility] [address] [place] [address] Dr. Ambrosio Ramirez MCH (RBC) [Entitic mass] 34.9 pg Critically high 26.7-34.0 [facility] Comment on above: Performed By: #### O BSCRN #### [facility] [address] [place] [address] Dr. Ambrosio Ramirez MCHC (RBC) [Mass/Vol] 33.5 g/dL Normal 29.9-35.2 [facility] Comment on above: Performed By: #### O BSCRN #### [facility] [address] [place] [address] Dr. Ambrosio Ramirez MCV (RBC) [Entitic vol] 104.1 fL Critically high 81.0-99.0 [facility] Comment on above: Performed By: #### O BSCRN #### [facility] [address] [place] [address] Dr. Ambrosio Ramirez MONO # 0.4 103/ul Normal 0.3-0.8 [facility] Comment on above: Performed By: #### O BSCRN #### [facility] [address] [place] [address] Dr. Ambrosio Ramirez Monocytes/100 WBC (Bld) 8.2 % Normal 1.7-12.0 [facility] Comment on above: Performed By: #### O BSCRN #### [facility] [address] [place] [address] Dr. Ambrosio Ramirez NEUT # 2.1 103/ul Normal 1.4-6.5 [facility] Comment on above: Performed By: #### O BSCRN #### [facility] [address] [place] [address] Dr. Ambrosio Ramirez Neutrophils/100 WBC (Bld) 41.5 % Critically low 43.0-75.[address] [facility] Comment on above: Performed By: #### O BSCRN #### [facility] [address] [place] [address] Dr. Ambrosio Ramirez Platelet mean volume (Bld) [Entitic vol] 9.3 fL Critically low 9.5-13.5 [facility] Comment on above: Performed By: #### O BSCRN #### [facility] [address] [place] [address] Dr. Ambrosio Ramirez PLT 210 103/ul Normal 150-[address] [facility] Comment on above: Performed By: #### O BSCRN #### [facility] [address] [place] [address] Dr. Ambrosio Ramirez RBC 4.67 106/ul Normal 4.20-5.40 [facility] Comment on above: Performed By: #### O BSCRN #### [facility] [address] [place] [address] Dr. Ambrosio Ramirez WBC 5.0 103/ul Normal 4.0-11.0 [facility] Comment on above: Performed By: #### O BSCRN #### [facility] [address] [place] [address] Dr. Ambrosio Ramirez FREE THYROXINE INDEX T7on FTI 2.72 Normal 1.30-4.50 [facility] Comment on above: Performed By: #### O BSCRN #### [facility] [address] [place] [address] Dr. Ambrosio Ramirez T3U 32.0 % Normal 30.0-39.0 [facility] Comment on above: Performed By: #### O BSCRN #### [facility] [address] [place] [address] Dr. Ambrosio Ramirez T4 [Mass/Vol] 8.50 ug/dL Normal 4.80-13.90 [facility] Comment on above: Performed By: #### O BSCRN #### [facility] [address] [place] [address] Dr. Ambrosio Ramirez GLYCOHEMOGLOBIN A1Con 2021 ADA RECOMMENDATION SEE BELOW Normal [facility] Comment on above: Result Comment: ADA RECOMMENDED LIMIT 4.0 - 6.0 ADA THERAPEUTIC TARGET < 7.0 ACTION SUGGESTED > 7.0 Performed By: #### A 1C #### [facility] [address] [place] [address] Dr. Ambrosio Ramirez Glucose [Mass/Vol] 108 mg/dL Normal [facility] Comment on above: Performed By: #### A 1C #### [facility] [address] [address] [address] Ambrosio Ramirez HbA1c (Bld) [Mass fraction] 5.4 % Normal 4.5-6.2 [facility] Comment on above: Performed By: #### A 1C #### [facility] [address] [address] [address] Ambrosio Ramirez HIV 1/2 RAPID (EXPOSURE ONLY )on 08-22-2021 HIV AB Negative Normal [facility] Comment on above: Performed By: #### A 1C #### [facility] [address] [address] [address] Ambrosio Ramirez HIV AG Negative Normal [facility] Comment on above: Performed By: #### A 1C #### [facility] [address] [address] [address] Ambrosio Ramirez INTERNAL CONTROLS Within Normal Limits Normal Wi thin Normal Limits [facility] Comment on above: Performed By: #### A 1C #### [facility] [address] [address] [address] Ambrosio Ramirez RAPID HIV INFO SEE BELOW Normal [facility] Comment on above: Result Comment: This test is used for the initial screening of the exposure source. Confirmation of all results will be obtained through reference lab testing. Performed By: #### A 1C #### [facility] [address] [place] [address] Dr. Ambrosio Ramirez IRONon 08-22-2021 Iron [Mass/Vol] 137.0 ug/dL Normal 50.0-170.0 [facility] Comment on above: Performed By: #### I HAMLET #### [facility] [address] [place] [address] Dr. Ambrosio Ramirez LIPID PROFILEon 08-22-2021 CHOL-HDL RATIO NORM SEE BELOW Normal [facility] Comment on above: Result Comment: 3.3 - 4.4 LOW RISK 4.4 - 7.1 AVERAGE RISK 7.1 - 11.0 MODERATE RISK >11.0 HIGH RISK Performed By: #### O BSCRN #### [facility] [address] [place] [address] Dr. Ambrosio Ramirez Cholesterol [Mass/Vol] 251 mg/dL Critically high <=200 [facility] Comment on above: Performed By: #### O BSCRN #### [facility] [address] [address] [address] Ambrosio Ramirez Cholesterol in HDL [Mass/Vol] 67 mg/dL Critically high 40-60 [facility] Comment on above: Performed By: #### O BSCRN #### [facility] [address] [address] [address] Ambrosio Ramirez Cholesterol in LDL [Mass/Vol] 154.8 mg/dL Normal [facility] Comment on above: Performed By: #### O BSCRN #### [facility] [address] [address] [address] Ambrosio Ramirez Cholesterol.total/Cho lesterol in HDL [Mass ratio] 3.7 {ratio} Normal [facility] Comment on above: Performed By: #### O BSCRN #### [facility] [address] [address] [address] Ambrosio Ramirez HDL NORMAL > or = 60 mg/dl - LO W CARDIOVASCULAR RISK <40 mg/dl - HIGH CARDIOVASCULAR RISK Normal [facility] Comment on above: Performed By: #### O BSCRN #### [facility] [address] [address] [address] Ambrosio Ramirez LDL CALC NORMAL SEE BELOW Normal [facility] Comment on above: Result Comment: <100 mg/dl OPTIMAL 100 - 129 mg/dl NEAR OR ABOVE OPTIMAL 130 - 159 mg/dl BORDERLINE HIGH 160 - 189 mg/dl HIGH >190 mg/dl VERY HIGH Performed By: #### O BSCRN #### [facility] [address] [address] [address] Ambrosio Ramirez Triglyceride [Mass/Vol] 146 mg/dL Normal <=[address] [facility] Comment on above: Performed By: #### O BSCRN #### [facility] [address] [address] [address] Ambrosio Ramirez VLDL CALC 29.2 mg/dL Normal [facility] Comment on above: Performed By: #### O BSCRN #### [facility] [address] [address] [address] Ambrosio Ramirez PROF 14(COMP METB)on 022 Albumin [Mass/Vol] 4.3 g/dL Normal 3.4-5.0 [facility] Comment on above: Performed By: #### O BSCRN #### [facility] [address] [place] [address] Dr. Ambrosio Ramirez Albumin/Globulin [Mass ratio] 1.2 {ratio} Normal [facility] Comment on above: Performed By: #### O BSCRN #### [facility] [address] [place] [address] Dr. Ambrosio Ramirez ALP [Catalytic activity/Vol] 57 U/L Normal 46-116 [facility] Comment on above: Performed By: #### O BSCRN #### [facility] [address] [place] [address] Dr. Ambrosio Ramirez ALT [Catalytic activity/Vol] 56 U/L Normal 14-59 [facility] Comment on above: Performed By: #### O BSCRN #### [facility] [address] [place] [address] Dr. Ambrosio Ramirez Anion gap [Moles/Vol] 11.5 mmol/L Normal [facility] Comment on above: Performed By: #### O BSCRN #### [facility] [address] [place] [address] Dr. Ambrosio Ramirez AST [Catalytic activity/Vol] 75 U/L Critically high 15-37 [facility] Comment on above: Performed By: #### O BSCRN #### [facility] [address] [place] [address] Dr. Ambrosio Ramirez Bilirubin [Mass/Vol] 0.4 mg/dL Normal 0.2-1.0 [facility] Comment on above: Performed By: #### O BSCRN #### [facility] [address] [place] [address] Dr. Ambrosio Ramirez Calcium [Mass/Vol] 8.7 mg/dL Normal 8.5-10.1 [facility] Comment on above: Performed By: #### O BSCRN #### [facility] [address] [address] [address] Ambrosio Ramirez Chloride [Moles/Vol] 105 mmol/L Normal 98-[address] [facility] Comment on above: Performed By: #### O BSCRN #### [facility] [address] [address] [address] Ambrosio Ramirez CO2 [Moles/Vol] 30.3 mmol/L Normal 21.0-32.0 [facility] Comment on above: Performed By: #### O BSCRN #### [facility] [address] [address] [address] Ambrosio Ramirez Creatinine [Mass/Vol] 0.67 mg/dL Normal 0.55-1.02 [facility] Comment on above: Performed By: #### O BSCRN #### [facility] [address] [place] [address] Dr. Ambrosio Ramirez EGFR-AF MOZAMBICAN >60 Normal >=60 [facility] Comment on above: Performed By: #### O BSCRN #### [facility] [address] [address] [address] Ambrosio Ramirez EGFR-NON AF MOZAMBICAN >60 Normal >=60 [facility] Comment on above: Performed By: #### O BSCRN #### [facility] [address] [address] [address] Ambrosio Ramirez Globulin (S) [Mass/Vol] 3.7 g/dL Normal [facility] Comment on above: Performed By: #### O BSCRN #### [facility] [address] [address] [address] Ambrosio Ramirez Glucose [Mass/Vol] 93 mg/dL Normal 74-106 [facility] Comment on above: Performed By: #### O BSCRN #### [facility] [address] [address] [address] Ambrosio Ramirez Potassium [Moles/Vol] 4.8 mmol/L Normal 3.5-5.1 [facility] Comment on above: Performed By: #### O BSCRN #### [facility] [address] [place] [address] Dr. Ambrosio Ramirez Protein [Mass/Vol] 8.0 g/dL Normal 6.4-8.[address] [facility] Comment on above: Performed By: #### O BSCRN #### [facility] [address] [place] [address] Dr. Ambrosio Ramirez Sodium [Moles/Vol] 142 mmol/L Normal 136-[address] [facility] Comment on above: Performed By: #### O BSCRN #### [facility] [address] [place] [address] Dr. Ambrosio Ramirez Urea nitrogen [Mass/Vol] 8.0 mg/dL Normal 7.0-18.0 [facility] Comment on above: Performed By: #### O BSCRN #### [facility] [address] [place] [address] Dr. Ambrosio Ramirez Urea nitrogen/Creatinine [Mass ratio] 11.9 mg/mg Normal [facility] Comment on above: Performed By: #### O BSCRN #### [facility] [address] [place] [address] Dr. Ambrosio Ramirez TSHon 08-22-2021 TSH 2.117 uIU/mL Normal 0.358-3.740 [facility] Comment on above: Performed By: #### O BSCRN #### [facility] [address] [place] [address] Dr. 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 Vital Signs Date Time Vital Sign Value Performing Clinician Facility 01-12-2024 13:34-0500 Blood Pressure Location [facility] CL[facility] 01-12-2024 13:34-0500 Diastolic blood pressure 67 mm[Hg] LEIGH AMBER [facility] 01-12-2024 13:34-0500 Heart rate 84 /min LEIGH AMBER [facility] 01-12-2024 13:34-0500 Respiratory rate 20 /min LEIGH AM[facility] 01-12-2024 13:34-0500 Systolic blood pressure 117 mm[Hg] LEIGH AMBER [facility] 05-09-2022 10:14-0400 Diastolic blood pressure 85 mm[Hg] [employer] Ama Jerry Work Phone: [facility] 05-09-2022 10:14-0400 Heart rate 99 /min [employer] Ama Jerry Work Phone: [facility] 05-09-2022 10:14-0400 Respiratory rate 18 /min [employer] Ama Jerry Work Phone: [facility] 05-09-2022 10:14-0400 SaO2% (BldA) [Mass fraction] 99 % [employer] Ama Jerry Work Phone: [facility] 05-09-2022 10:14-0400 Systolic blood pressure 124 mm[Hg] [employer] Ama Jerry Work Phone: [facility] 05-09-2022 08:04-0400 Body height 180.34 cm [employer] Ama Jerry Work Phone: [facility] 05-09-2022 08:04-0400 Body weight 58.96 kg SHANE-C Ama Edwards Work Phone: [facility] 05-01-2022 11:15-0500 Body height Imad Asaad Other [facility] Other 05-01-2022 11:15-0500 Body mass index (BMI) [Ratio] 18.13 kg/m2 Imad Asaad Other [facility] Other 05-01-2022 11:15-0500 Body weight 58.97 kg Imad Asaad Other [facility] Other 05-01-2022 11:15-0500 Diastolic blood pressure 102 mm[Hg] Imad Asaad Other [facility] Other 05-01-2022 11:15-0500 Respiratory rate 16 /min Imad Asaad Other [facility] Other 05-01-2022 11:15-0500 Systolic blood pressure 158 mm[Hg] Imad Asaad Other [facility] Other Encounters Encounter Date Encounter Type Care Provider Facility Start: 02-08-2024 End: 02-08-2024 ambulatory Manuel Reyanga MD Facility:[facility] Start: 02-02-2024 End: 02-02-2024 ambulatory Ama Edwards Facility:[facility] Start: 01-12-2024 End: 01-12-2024 Lab Drop off [facility] Start: 01-12-2024 End: 01-12-2024 ambulatory LEIGH CLARK Facility:[facility] Start: 01-12-2024 End: 01-12-2024 Patient encounter procedure [facility] Start: 12-28-2023 End: 12-28-2023 ambulatory Manuel Reynaga MD Facility: [facility] Start: 12-22-2023 End: 12-22-2023 ambulatory LE[facility] CLARK Facility:[facility] Start: 12-22-2023 End: 12-22-2023 Patient encounter procedure LEIGH Mcleod [facility] Start: 12-14-2023 End: 12-14-2023 ambulatory Manuel Reynaga MD Facility: [facility] Start: 11-23-2023 ambulatory LEIGH CLARK Facility :[facility] Start: 09-21-2023 End: 09-21-2023 ambulatory Manuel Reynaga MD Facility: [facility] Start: 08-31-2023 End: 08-31-2023 ambulatory Andkrishna Lugoitis Facility: [facility] Start: 08-17-2023 End: 08-17-2023 ambulatory Manuel Lugoitis Facility: [facility] Start: 07-06-2023 End: 07-06-2023 ambulatory Andkrishna Lugoitis Facility: [facility] Start: 05-09-2022 End: 05-09-2022 Admission to same day surgery center [employer] Ama Edwards Work Phone: [facility] Work Phone: Start: 05-09-2022 End: 05-09-2022 ambulatory [employer] Ama Edwards Work Phone: [facility] Work Phone: Start: 05-02-2022 End: 05-02-2022 ambulatory Imad Asaad Other [facility] Other Start: 05-02-2022 Telephone encounter Imad Asaad [facility] Start: 05-01-2022 End: 05-01-2022 ambulatory Imad Asaad Other [facility] Other Start: 05-01-2022 Office consultation new/estab patient 60 min Imad Asaad [facility] Start: 03-25-2022 End: 03-26-2022 ambulatory AMA EDWARDS Facility:[facility] Start: 03-12-2022 End: 03-13-2022 ambulatory AMA EDWRADS Facility:[facility] Start: 01-27-2022 End: 01-28-[address] GEORGE ROWE Facility:[facility] Start: 09-12-2021 ambulatory AMA EDWARDS Facility: [facility] Start: 08-23-2021 End: 08-23-2021 ambulatory AMA EDWARDS Facility:[facility] Start: 08-23-2021 End: 08-23-2021 ambulatory LOLIS BOB Facility:[facility] Start: 08-22-2021 End: 08-23-2021 ambulatory AMA EDWARDS Facility:[facility] Procedures Date Procedure Procedure Detail Performing Clinician Start: 05-09-2022 Esophagogastroduodenoscopy [employer] Ama patel Work Phone: Colonoscopy [facility] Screening for malign ant neoplasm of colon Imad Asaad Other Surgical procedure o n cervical spine [facility] Tonsillectomy [facility] Plan of Treatment Date Care Activity Detail Author Start: 05-09-2022 [facility] Patient Education Colon Polyps H emorrhoids (DC) Diverticulosis (DC) Gastritis (DC) [facility] Work Phone: Payers Date Payer Category Payer Self-pay 2022 Unknown 1960 Unknown [id number] 2.16.84 [id number] 1960 Unknown [id number] 2.16.84 [id number] 1960 Unknown [id number] 2.16.84 [id number] 1962 Unknown [id number] 2.16.84 [id number] 1962 Unknown [id number] 2.16.84 0.1.084689.3.579.2.593 1962 Unknown [id number] 2.16.84 0.1.800823.3.579.2.593 1962 Unknown [id number] 2.16.84 0.1.581805.3.579.2.593 1962 Unknown [id number] 2.16.8 40.1.266185.3.579.2.727 1962 Unknown [id number] 2.16.8 40.1.465538.3.579.2.727 1962 Unknown [id number] 2.16. 840.1.010282.3.579.2.196 1962 Unknown [id number] 2.16. 840.1.260460.3.579.2.196 1962 Unknown [id number] 2.16. 840.1.420509.3.579.2.196 1962 Unknown [id number] 2.16. 840.1.469902.3.579.2.196 1962 Unknown [id number] 2.16. 840.1.463089.3.579.2. 1962 Unknown [id number] 2.16. 840.1.313039.3.579.2.196 1962 Unknown [id number] 2.16. 840.1.168885.3.579.2.196 1957 Medicare [id number] 1957 Unknown [id number] 1957 Unknown [id number] 1957 Unknown [id number] Unknown [id number] 2.16.8 [id number] Social History Date Type Detail Facility Start: 05-09-2022 Tobacco smoking stat [facility] Smoker (finding) [facility] Start: 1960 Sex Assigned At Female F [facility] Sex Assigned At [facility] Tobacco smoking status No Smokin g Status Entered [facility] Start: 01-12-2024 Tobacco smoking status Heavy [...] your health care provider. General instructions Take prhs-moj-lygdead and prescription medicines only as told by [...] provider. Document Revised: 10/29/2020 Document Reviewed: 10/29/2020 [employer] Patient Education 2023 [employer]. Follow Up Care 01/05/2024 13:19:21 With:AMBER MONAHAN, LEIGH Mcleod, URL Address: [address] [place] [address] Business (1) When: only if needed [facility] 01-12-2024 Note Patient Education Obstetrics and [...] health care provider. General instructions ??? Take wlxr-osa-csvonyu and prescription medicines only as told by [...] drink, and whe (more content not included)... [facility] 01-12-2024 Evaluation + Plan note Diagnostic Tests PendingUrine Culture 01/12/24 [facility] 05-09-2022 Procedure note [facility] 05-01-2022 Evaluation note Encounter Date Diagnosis Assessment Notes Apr, Dysphagia (ICD-10 - R13.10) Apr, Weight loss (ICD-10 - R63.4) Apr, Colon cancer screening (ICD-10 - Z12.11) [facility] Other Evaluation + Plan note No data available for this section [facility] evaluation noteNo assessment information available [facility] Work Phone: Evaluation noteNo InformationNort [employer] Other History general Narrative - Reported* Type Description Date Medical History Anxiety/Depression Surgical History Neck surgery Surgical History Tonsillectomy Hospitalization History See above [facility] Other Hospital Discharge instructions Additional Instructions DISCHARGE [...] NOT operate machinery such as power tools, [place] mowers, snow blowers, sewing machines, etc. for [...] -Follow up with PCP. - Office number [phone]. [facility] Work Phone: Hospital Discharge instructions No data available for this section [facility] progress note No data available for this section [facility] Chief Complaint and Reason for Visit [...] and content) DATE CREATED AUTHOR 07/02/2022 [facility] DATE CREATED AUTHOR AUTHOR'S ORGANIZ ATION 01/15/2024 [facility] DATE CREATED AUTHOR AUTHOR'S ORGANIZ ATION 01/17/2024 [facility] DATE CREATED AUTHOR AUTHOR'S ORGANIZ ATION 02/06/[address] [facility] DATE CREATED AUTHOR AUTHOR'S ORGANIZ ATION 02/11/2024 [facility] DATE CREATED AUTHOR AUTHOR'S ORGANIZ ATION 02/17/2024 [facility] FOR RECORDS PERTAINING TO PATIENTS WHO [...] BE BASED ON THE PRIMARY CLINICAL RECORDS. [facility]. provides no warranty or guarantee of the accuracy or completeness of information in this document.
== END 2024-07-11 13:34 | disposition home or self-care (01) ==
LOC: MRI 13:33
PROVIDERS: PCP Nurse Practitioner Family
DX: M54.12 Radiculopathy, cervical region (principal); M43.22 Fusion of spine, cervical region; M48.02 Spinal stenosis, cervical region
CPT/HCPCS: 72141

== ENCOUNTER 2024-07-13 13:47 | Outpatient (OUT) | payer MEDICARE, OTHER, MEDICAID, SELFPAY ==
--- OUTSIDE RECORDS SUMMARY | 2024-07-13 13:57 | XMS_ITS | CCD ---
Author Organization [facility] CliniSypr Care Team Providers Care Sales Correspondence Clerk Name Role Phone MD Nesha Bryant Attending [...] , Manuel Yoo Attending Unavailable Giedraitis , Maunel Yoo Attending Unavailable Giedraitis , Manuel Yoo Attending Unavailable Giedraitis , Andkrishna Yoo Attending Unavailable Giedraitis , Andkrishna Yoo Attending Unavailable Giedraitis , Manuel Yoo Attending Unavailable Giedraitis , Manuel Yoo Attending Unavailable Allergies Allergy Classification Reported Allergen(s) Allergy Type Date of Onset Reaction(s) Facility (2 sources) No Known Medication Allergies; Translations: [No Known Medication Allergies] Propensity to adverse reactions (disorder) [facility] Repository Medications Current Medications Medication Drug Class(es) [...] Ordered Start: 05-12-2022 take 1 capsule by cox monett once daily Omeprazole 40 MG 1 capsule 30 minutes before morning meal Orally Once a day for 30 days Apr, Active 12 hr orphenadrine citrate 100 mg extended release oral tablet (2 sources) Muscle Relaxant Start: 01-12-2024 orphenadrine 1 00 mg ER Tab 100 mg = 1 tab(s) Start Date: 01/12/24 Status: Ordered polyethylene glycol 3350 241597 mg / potassium chloride 2970 mg / sodium bicarbonate 6740 mg / sodium chloride 5860 mg / sodium sulfate 88758 mg powder for oral solution (2 sources) [...] Test Name Value Interpretation Reference Range Facility [facility] 02-02-2024 L --- Specimen: [id number] Received: 02/03/24 Status: EDUARD Zaragoza Num: [id number] Spec Type: Surgical Subm Dr: Jose Matos MD Tissues: A Breast Core CALCIFICATIONS (RIGHT BREAST MICRO CALCIFICA) Procedures: ROSI/Sanya Ibrahim/Lindsay L4 Age/ Patient Sex Location Account Attending Physician Nanyc Joyce 63/F LABELL [id number] Ama Edwards CNP SPEC NUM: [id number] RECD: 02/03/24 STATUS: EDUARD ZARAGOZA NUM: [id number] AKTY: 02/02/[address]: Jose Matos MD ENTERED: 02/03/[address] [facility] [address]: Keyur,Lab Ama Edwards, SUPERVISOR CURING ROOM SPEC TYPE: Surgical DEPT: RAMYA LOWE ENTERED BY: [id number] RECV BY: [id number] ORDERED: HE/6, Gross/Micro L4 ORDERED: HE/6, Gross/Micro [...] 28 hours and 30 minutes (3, ns, [id number] A) GLENN Specimen: [id number] Received: 02/03/24 Status: EDUARD Nik Num: [id number] Spec Type: Surgical Subm Dr: Jose Matos MD Tissues: A Breast Core CALCIFICATIONS (RIGHT BREAST MICRO CALCIFICA) Procedures: HE/6, Gross/Micro L4 Patient: Nancy Joyce [id number] (Continued) Specimen: [id number] Received: 02/03/24 (Continued) Signed (signature on file) Glenn Rogel MD 02/04/24 1105 Specimen: [id number] Received: 02/03/24 Status: EDUARD Zaragoza Num: [id number] Spec Type: Surgical Subm Dr: Jose Matos MD Tissues: A Breast Core CALCIFICATIONS (RIGHT BREAST MICRO CALCIFICA) Procedures: HE/6, Sanya/Lindsay L4 Patient: Nancy Joyce Nuria [id number] (Continued) Specimen: [id number] Received: 02/03/24 (Continued) Microscopic Description Microscopic examination is performed. CPT Codes 03355 Specimen: [id number] Received: 02/03/24 Status: EDUARD Zaragoza Num: [id number] Spec Type: Surgical Subm Dr: Jose Matos MD Tissues: A Breast Core CALCIFICATIONS (RIGHT BREAST MICRO CALCIFICA) Procedures: HE/6, Gross/Micro L4 Patient: Nancy Joyce [id number] (Continued) Signed (signature on file) Glenn Rogel MD 02/04/[address] [facility] C Urineon 01-14-2024 Bacteria [...] Locations R1: This test [facility] performed at[facility] [address] [place] [address], [facility]- , [place], Normal [facility] Comment on above: Performed By: #### 2 [id number] #### [facility] [address] [place] [address] URINALYSISOrdered By: SYSTEM SYSTEM on 01-12-2024 Bilirubin [...] that meet specific criteria set forth by [facility]. Glucose Ql (U) Negative Normal Negativemg/d L [facility] UA Auto SS Hemoglobin Auto test strip (U) [Mass/Vol] Trace mg/dL Invalid Interpretation Code Negativemg/d L [facility] UA Auto SS Ketones Auto test strip Ql (U) Negative Normal Negativemg/d L [facility] [place] [place] UA Auto SS Leukocyte esterase Auto test strip Ql (U) Negative Normal NegativeLeu/ uL [facility] UA Auto SS Nitrite Auto test strip Ql (U) Negative Normal Negativemg/d L [facility] UA Auto SS pH (U) 5.0 *NA* (01/12/24 2:07 PM) Invalid Interpretation Code 5.0 - 9.0 [facility] UA Auto SS Protein Ql (U) Negative Normal Negativemg/d L [facility] [place] UA Auto SS Specific gravity (U) [Rel density] 1.012 *NA* (01/12/24 2:07 PM) Invalid Interpretation Code 1.005 - 1.030 [facility] [place] [place] UA Auto SS Urobilinogen (U) [Mass/Vol] Negative Normal Negativemg/d L [facility] [place] UA Auto SS URINALYSISOrdered By: Alexandra Godoy on 01-12-2024 UA Spec Desc Random Urine (01/12/24 2:07 PM) Normal [facility] UA Auto SS Urinalysis with Microon 12-24 Bilirubin Ql (U) Negative Normal Negative [facility] Comment on above: Performed By: #### 4 [id number] #### [facility] [address] [place] [address] Clarity (U) Clear Normal Clear [facility] Comment on above: Performed By: #### 4 [id number] #### [facility] [address] [place] [address] Color (U) Yellow Normal Yellow [facility] Comment on above: Result Comment: Micr oscopic readings are only performed on those samples that meet specific criteria set forth by [facility]. Performed By: #### 4 [id number] #### [facility] [address] [place] [address] Glucose Ql (U) Negative Normal Negative [facility] Comment on above: Performed By: #### 4 [id number] #### [facility] [address] [place] [address] Hemoglobin Auto test strip (U) [Mass/Vol] Trace Abnormal Negative [facility] Comment on above: Performed By: #### 4 [id number] #### [facility] [address] [place] [address] Ketones Auto test strip Ql (U) Negative Normal Negative [facility] Comment on above: Performed By: #### 4 [id number] #### [facility] [address] [place] [address] Leukocyte esterase Auto test strip Ql (U) Negative Normal Negative [facility] Comment on above: Performed By: #### 4 [id number] #### [facility] [address] [place] [address] Nitrite Auto test strip Ql (U) Negative Normal Negative [facility] Comment on above: Performed By: #### 4 [id number] #### [facility] [address] [place] [address] pH (U) 5.0 [pH] Invalid Interpretation Code 5.0-9.0 [facility] Comment on above: Performed By: #### 4 [id number] #### [facility] [address] [place] [address] Protein Ql (U) Negative Normal Negative [facility] Comment on above: Performed By: #### 4 [id number] #### [facility] [address] [place] [address] Specific gravity (U) [Rel density] 1.012 Invalid Interpretation Code 1.005-1.030 [facility] Comment on above: Performed By: #### 4 [id number] #### [facility] [address] [place] [address] Urobilinogen (U) [Mass/Vol] Negative Normal Negative [facility] Comment on above: Performed By: #### 4 [id number] #### [facility] [address] [place] [address] Type of Urine collection method Random Urine Normal [facility] Comment on above: Performed By: #### 4 [id number] #### [facility] [address] [place] [address] Urology Office/Clinic Noteon 01-12-2024 Urology Office/Clinic Note [...] E&M of New Patient Moderate 45-59 Min 56821 2. Asymptomatic microscopic hematuria (R31.21: Asymptomatic microscopic [...] E&M of New Patient Moderate 45-59 Min 69512 Orders: 19991 Measure Post Void residual urine and/or bladder capacity by US- non-imaging Urinalysis with Micro Urine Culture Urnls Dip Stick Auto w/o Microscopy POC 68208 Follow-up With When Contact Information AMBER MONAHAN, LEIGH Mcleod, URL Only if needed [address] [place] [address] Business (1) Additional Instructions: Patient [...] Dipstick: Negativ (more content not included)... Normal [facility] Comment on above: Result Comment: Elec tronically [...] by: JOSE MATOS Date: 2022-03-25 13:53 Normal [facility] INSULINon 03-13-2022 Insulin 3.9 uIU/mL Normal 2.6-24.9 [facility] Comment on above: Performed By: #### O BSCRN #### [facility] [address] [place] [address] Dr. Ambrosio Ramirez XR CSPINE MIN 4 [...] JOSE MATOS Date: 2022-03-13 08:09 Normal [facility] CBC AUTO DIFFon 03-12-2022 BASO # 0.0 103/ul Normal 0.0-0.1 [facility] Comment on above: Performed By: #### C BC #### [facility] [address] [place] [address] Dr. Ambrosio Ramirez Basophils/100 WBC (Bld) 0.7 % Normal 0.2-2.0 [facility] Comment on above: Performed By: #### C BC #### [facility] [address] [place] [address] Dr. Ambrosio Ramirez EO # 0.1 103/ul Normal 0.0-0.7 [facility] Comment on above: Performed By: #### C BC #### [facility] [address] [place] [address] Dr. Ambrosio Ramirez Eosinophils/100 WBC (Bld) 0.9 % Normal 0.9-7.0 [facility] Comment on above: Performed By: #### C BC #### [facility] [address] [place] [address] Dr. Ambrosio Ramirez Erythrocyte distribution width (RBC) [Ratio] 12.3 % Normal 11.0-15.0 [facility] Comment on above: Performed By: #### C BC #### [facility] [address] [place] [address] Dr. Ambrosio Ramirez Hematocrit (Bld) [Volume fraction] 46.0 % Normal 36.0-48.0 [facility] Comment on above: Performed By: #### C BC #### [facility] [address] [place] [address] Dr. Ambrosio Ramirez Hemoglobin (Bld) [Mass/Vol] 15.2 g/dL Normal 12.0-16.0 [facility] Comment on above: Performed By: #### C BC #### [facility] [address] [place] [address] Dr. Ambrosio Ramirez IG # 0.03 10e3/ul Normal 0.00-0.03 [facility] Comment on above: Performed By: #### C BC #### [facility] [address] [place] [address] Dr. Ambrosio Ramirez IG % 0.5 % Normal 0.0-0.5 [facility] Comment on above: Performed By: #### C BC #### [facility] [address] [place] [address] Dr. Ambrosio Ramirez LYMPH # 2.0 103/ul Normal 1.2-3.8 [facility] Comment on above: Performed By: #### C BC #### [facility] [address] [place] [address] Dr. Ambrosio Ramirez Lymphocytes/100 WBC (Bld) 35.0 % Normal 20.5-60.0 [facility] Comment on above: Performed By: #### C BC #### [facility] [address] [place] [address] Dr. Ambrosio Ramirez MANUAL DIFF REQ NO Normal [facility] Comment on above: Performed By: #### C BC #### [facility] [address] [place] [address] Dr. Ambrosio Ramirez MCH (RBC) [Entitic mass] 33.8 pg Normal 26.7-34.0 [facility] Comment on above: Performed By: #### C BC #### [facility] [address] [place] [address] Dr. Ambrosio Ramirez MCHC (RBC) [Mass/Vol] 33.0 g/dL Normal 29.9-35.2 [facility] Comment on above: Performed By: #### C BC #### [facility] [address] [address] [address] Ambrosio Ramirez MCV (RBC) [Entitic vol] 102.2 fL Critically high 81.0-99.0 [facility] Comment on above: Performed By: #### C BC #### [facility] [address] [address] [address] Ambrosio Ramirez MONO # 0.4 103/ul Normal 0.3-0.8 [facility] Comment on above: Performed By: #### C BC #### [facility] [address] [address] [address] Ambrosio Ramirez Monocytes/100 WBC (Bld) 7.2 % Normal 1.7-12.0 [facility] Comment on above: Performed By: #### C BC #### [facility] [address] [place] [address] Dr. Ambrosio Ramirez NEUT # 3.2 103/ul Normal 1.4-6.5 [facility] Comment on above: Performed By: #### C BC #### [facility] [address] [place] [address] Dr. Ambrosio Ramirez Neutrophils/100 WBC (Bld) 55.7 % Normal 43.0-75.0 [facility] Comment on above: Performed By: #### C BC #### [facility] [address] [place] [address] Dr. Ambrosio Ramirez Platelet mean volume (Bld) [Entitic vol] 9.1 fL Critically low 9.5-13.5 [facility] Comment on above: Performed By: #### C BC #### [facility] [address] [place] [address] Dr. Ambrosio Ramirez PLT 234 103/ul Normal 150-450 [facility] Comment on above: Performed By: #### C BC #### [facility] [address] [place] [address] Dr. Ambrosio Ramirez RBC 4.50 106/ul Normal 4.20-5.40 [facility] Comment on above: Performed By: #### C BC #### [facility] [address] [address] [address] Ambrosio Ramirez WBC 5.7 103/ul Normal 4.0-11.0 [facility] Comment on above: Performed By: #### C BC #### [facility] [address] [address] [address] Ambrosio Ramirez FREE THYROXINE INDEX T7on FTI 2.41 Normal 1.30-4.50 [facility] Comment on above: Performed By: #### A 1C #### [facility] [address] [place] [address] Dr. Ambrosio Ramirez T3U 33.0 % Normal 30.0-39.0 [facility] Comment on above: Performed By: #### A 1C #### [facility] [address] [place] [address] Dr. Ambrosio Ramirez T4 [Mass/Vol] 7.30 ug/dL Normal 4.80-13.90 [facility] Comment on above: Performed By: #### A 1C #### [facility] [address] [place] [address] Dr. Ambrosio Ramirez GLYCOHEMOGLOBIN A1Con 2022 ADA RECOMMENDATION SEE BELOW Normal [facility] Comment on above: Result Comment: ADA RECOMMENDED LIMIT 4.0 - 6.0 ADA THERAPEUTIC TARGET < 7.0 ACTION SUGGESTED > 7.0 Performed By: #### A 1C #### [facility] [address] [place] [address] Dr. Ambrosio Ramirez Glucose [Mass/Vol] 100 mg/dL Normal [facility] Comment on above: Performed By: #### A 1C #### [facility] [address] [place] [address] Dr. Ambrosio Ramirez HbA1c (Bld) [Mass fraction] 5.1 % Normal 4.5-6.2 [facility] Comment on above: Performed By: #### A 1C #### [facility] [address] [place] [address] Dr. Ambrosio Ramirez IRONon 03-12-2022 Iron [Mass/Vol] 148.0 ug/dL Normal 50.0-170.0 [facility] Comment on above: Performed By: #### O BSCRN #### [facility] [address] [address] [address] Ambrosio Ramirez LIPID PROFILEon 03-12-2022 CHOL-HDL RATIO NORM SEE BELOW Normal [facility] Comment on above: Result Comment: 3.3 - 4.4 LOW RISK 4.4 - 7.1 AVERAGE RISK 7.1 - 11.0 MODERATE RISK >11.0 HIGH RISK Performed By: #### A 1C #### [facility] [address] [address] [address] Ambrosio Ramirez Cholesterol [Mass/Vol] 234 mg/dL Critically high <=200 [facility] Comment on above: Performed By: #### A 1C #### [facility] [address] [address] [address] Ambrosio Ramirez Cholesterol in HDL [Mass/Vol] 71 mg/dL Critically high 40-60 [facility] Comment on above: Performed By: #### A 1C #### [facility] [address] [address] [address] Ambrosio Ramirez Cholesterol in LDL [Mass/Vol] 132.4 mg/dL Normal [facility] Comment on above: Performed By: #### A 1C #### [facility] [address] [address] [address] Ambrosio Ramirez Cholesterol.total/Cho lesterol in HDL [Mass ratio] 3.3 {ratio} Normal [facility] Comment on above: Performed By: #### A 1C #### [facility] [address] [address] [address] Ambrosio Ramirez HDL NORMAL > or = 60 mg/dl - LO W CARDIOVASCULAR RISK <40 mg/dl - HIGH CARDIOVASCULAR RISK Normal [facility] Comment on above: Performed By: #### A 1C #### [facility] [address] [address] [address] Ambrosio Ramirez LDL CALC NORMAL SEE BELOW Normal [facility] Comment on above: Result Comment: <100 mg/dl OPTIMAL 100 - 129 mg/dl NEAR OR ABOVE OPTIMAL 130 - 159 mg/dl BORDERLINE HIGH 160 - 189 mg/dl HIGH >190 mg/dl VERY HIGH Performed By: #### A 1C #### [facility] [address] [address] [address] Ambrosio Ramirez Triglyceride [Mass/Vol] 153 mg/dL Critically high <=150 [facility] Comment on above: Performed By: #### A 1C #### [facility] [address] [address] [address] Ambrosio Ramirez VLDL CALC 30.6 mg/dL Normal [facility] Comment on above: Performed By: #### A 1C #### [facility] [address] [address] [address] Ambrosio Ramirez PROF 14(COMP METB)on 023 Albumin [Mass/Vol] 4.2 g/dL Normal 3.4-5.0 [facility] Comment on above: Performed By: #### A 1C #### [facility] [address] [address] [address] Ambrosio Ramirez Albumin/Globulin [Mass ratio] 1.3 {ratio} Normal [facility] Comment on above: Performed By: #### A 1C #### [facility] [address] [address] [address] Ambrosio Ramirez ALP [Catalytic activity/Vol] 62 U/L Normal 46-116 [facility] Comment on above: Performed By: #### A 1C #### [facility] [address] [place] [address] Dr. Ambrosio Ramirez ALT [Catalytic activity/Vol] 27 U/L Normal 14-59 [facility] Comment on above: Performed By: #### A 1C #### [facility] [address] [address] [address] Ambrosio Ramirez Anion gap [Moles/Vol] 12.8 mmol/L Normal [facility] Comment on above: Performed By: #### A 1C #### [facility] [address] [address] [address] Ambrosio Ramirez AST [Catalytic activity/Vol] 39 U/L Critically high 15-37 [facility] Comment on above: Performed By: #### A 1C #### [facility] [address] [address] [address] Ambrosio Ramirez Bilirubin [Mass/Vol] 0.4 mg/dL Normal 0.2-1.0 [facility] Comment on above: Performed By: #### A 1C #### [facility] [address] [address] [address] Ambrosio Ramirez Calcium [Mass/Vol] 9.1 mg/dL Normal 8.5-10.1 [facility] Comment on above: Performed By: #### A 1C #### [facility] [address] [address] [address] Ambrosio Ramirez Chloride [Moles/Vol] 103 mmol/L Normal 98-107 [facility] Comment on above: Performed By: #### A 1C #### [facility] [address] [place] [address] Dr. Ambrosio Ramirez CO2 [Moles/Vol] 30.5 mmol/L Normal 21.0-32.0 [facility] Comment on above: Performed By: #### A 1C #### [facility] [address] [place] [address] Dr. Ambrosio Ramirez Creatinine [Mass/Vol] 0.54 mg/dL Critically low 0.55-1.02 [facility] Comment on above: Performed By: #### A 1C #### [facility] [address] [place] [address] Dr. Ambrosio Ramirez EGFR-AF THAI >60 Normal >=60 [facility] Comment on above: Performed By: #### A 1C #### [facility] [address] [place] [address] Dr. Ambrosio Ramirez EGFR-NON AF THAI >60 Normal >=60 [facility] Comment on above: Performed By: #### A 1C #### [facility] [address] [place] [address] Dr. Ambrosio Ramirez Globulin (S) [Mass/Vol] 3.3 g/dL Normal [facility] Comment on above: Performed By: #### A 1C #### [facility] [address] [place] [address] Dr. Ambrosio Ramirez Glucose [Mass/Vol] 88 mg/dL Normal 74-106 [facility] Comment on above: Performed By: #### A 1C #### [facility] [address] [address] [address] Ambrosio Ramirez Potassium [Moles/Vol] 4.3 mmol/L Normal 3.5-5.1 [facility] Comment on above: Performed By: #### A 1C #### [facility] [address] [address] [address] Ambrosio Ramirez Protein [Mass/Vol] 7.5 g/dL Normal 6.4-8.2 [facility] Comment on above: Performed By: #### A 1C #### [facility] [address] [place] [address] Dr. Ambrosio Ramirez Sodium [Moles/Vol] 142 mmol/L Normal 136-145 [facility] Comment on above: Performed By: #### A 1C #### [facility] [address] [address] [address] Ambrosio Ramirez Urea nitrogen [Mass/Vol] 9.0 mg/dL Normal 7.0-18.0 [facility] Comment on above: Performed By: #### A 1C #### [facility] [address] [place] [address] Dr. Ambrosio Ramirez Urea nitrogen/Creatinine [Mass ratio] 16.7 mg/mg Normal [facility] Comment on above: Performed By: #### A 1C #### [facility] [address] [place] [address] Dr. Ambrosio Ramirez TSHon 03-12-2022 TSH 1.934 uIU/mL Normal 0.358-3.740 [facility] Comment on above: Performed By: #### A 1C #### [facility] [address] [place] [address] Dr. Abmrosio Ramirez XR TSPINE 3 VIEWSon 03-12-19 23 [...] GEORGE CATALAN Date: 2022-03-12 17:07 Normal [facility] Covid-19 PCR (CVDTB)on SARS-CoV-2 (COVID-19) RNA JAYY+probe Ql (Unsp spec) Not detected Normal NOT DETECTED [facility] Comment on above: Result Comment: [...] for this test is supported by the [employer] of [employer] and Human Service's declaration that [...] used). Performed By: #### C VDTB #### [facility] [address] [place] [address] Dr. Ambrosio Ramirez INFLUENZA A AND B AGon 01-27 INFLUENZA A AG Negative Normal NEGATIVE SEE COMMENT [facility] Comment on above: Performed By: #### I NFLUAB #### [facility] [address] [place] [address] Dr. Ambrosio Ramirez INFLUENZA B AG Negative Normal NEGATIVE SEE COMMENT [facility] Comment on above: Performed By: #### I NFLUAB #### [facility] [address] [place] [address] Dr. Ambrosio Ramirez INTERNAL CONTROLS Within Normal Limits Normal Wi thin Normal Limits [facility] Comment on above: Performed By: #### I NFLUAB #### [facility] [address] [id number] Ambrosio Ramirez XR CHEST 2 Von [...] GEORGE ROWE Date: 2022-01-27 14:42 Normal [facility] RPR QUANTon 08-26-2021 Rapid Plasma Reagin, Quant Non-Reactive Normal NonRea<1:1 [facility] Comment on above: [...] utilized, such as Treponema pallidum (Syphilis) Screening [place] (315118) or Rapid Plasma Reagin (RPR) Test With Reflex to Quantitative RPR and Confirmatory Treponema pallidum Antibodies (101722). Performed By: #### R PRQ #### [facility] [address] [place] [address] Dr. Ambrosio Ramirez HEP B SURFACE ANTIGEN SCREEN on 08-24-2021 HBsAg Screen Negative Normal Negative [facility] Comment on above: Performed By: #### H BSANS #### [facility] [address] [place] [address] Dr. Ambrosio Ramirez HEPATITIS C ANTIBODYon 08-24 Hep C Virus Ab <0.1 Normal 0.0-0.9 [facility] Comment on above: Result Comment: [...] Hepatitis C Virus (HCV) RNA, Diagnosis, JAYY ([id number]) and Hepatitis C Virus (HCV) Antibody with reflex to Quantitative Real-time PCR ([id number]). Performed By: #### H CV #### [facility] [address] [place] [address] Dr. Ambrosio Ramirez INSULINon 08-23-2021 Insulin 5.0 uIU/mL Normal 2.6-24.9 [facility] Comment on above: Performed By: #### A 1C #### [facility] [address] [place] [address] Dr. Ambrosio Ramirez OCC BLD IMMUNO SCREENon OCCULT BLOOD Negative Normal NEGATIVE [facility] Comment on above: Performed By: #### O BSCRN #### [facility] [address] [place] [address] Dr. Ambrosio Ramirez CBC AUTO DIFFon 08-22-2021 BASO # 0.1 103/ul Normal 0.0-0.1 [facility] Comment on above: Performed By: #### O BSCRN #### [facility] [address] [place] [address] Dr. Ambrosio Ramirez Basophils/100 WBC (Bld) 1.0 % Normal 0.2-2.0 [facility] Comment on above: Performed By: #### O BSCRN #### [facility] [address] [place] [address] Dr. Ambrosio Ramirez EO # 0.1 103/ul Normal 0.0-0.7 [facility] Comment on above: Performed By: #### O BSCRN #### [facility] [address] [place] [address] Dr. Ambrosio Ramirez Eosinophils/100 WBC (Bld) 1.8 % Normal 0.9-7.0 [facility] Comment on above: Performed By: #### O BSCRN #### [facility] [address] [place] [address] Dr. Ambrosio Ramirez Erythrocyte distribution width (RBC) [Ratio] 11.9 % Normal 11.0-15.0 [facility] Comment on above: Performed By: #### O BSCRN #### [facility] [address] [place] [address] Dr. Ambrosio Ramirez Hematocrit (Bld) [Volume fraction] 48.6 % Critically high 36.0-48.0 [facility] Comment on above: Performed By: #### O BSCRN #### [facility] [address] [place] [address] Dr. Ambrosio Ramirez Hemoglobin (Bld) [Mass/Vol] 16.3 g/dL Critically high 12.0-16.0 [facility] Comment on above: Performed By: #### O BSCRN #### [facility] [address] [place] [address] Dr. Ambrosio Ramirez IG # 0.03 10e3/ul Normal 0.00-0.03 [facility] Comment on above: Performed By: #### O BSCRN #### [facility] [address] [place] [address] Dr. Ambrosio Ramirez IG % 0.6 % Critically high 0.0-0.5 [facility] Comment on above: Performed By: #### O BSCRN #### [facility] [address] [place] [address] Dr. Ambrosio Ramirez LYMPH # 2.4 103/ul Normal 1.2-3.8 [facility] Comment on above: Performed By: #### O BSCRN #### [facility] [address] [place] [address] Dr. Ambrosio Ramirez Lymphocytes/100 WBC (Bld) 46.9 % Normal 20.5-60.0 [facility] Comment on above: Performed By: #### O BSCRN #### [facility] [address] [place] [address] Dr. Ambrosio Ramirez MANUAL DIFF REQ NO Normal [facility] Comment on above: Performed By: #### O BSCRN #### [facility] [address] [place] [address] Dr. Ambrosio Ramirez MCH (RBC) [Entitic mass] 34.9 pg Critically high 26.7-34.0 [facility] Comment on above: Performed By: #### O BSCRN #### [facility] [address] [place] [address] Dr. Ambrosio Ramirez MCHC (RBC) [Mass/Vol] 33.5 g/dL Normal 29.9-35.2 [facility] Comment on above: Performed By: #### O BSCRN #### [facility] [address] [place] [address] Dr. Ambrosio Ramirez MCV (RBC) [Entitic vol] 104.1 fL Critically high 81.0-99.0 [facility] Comment on above: Performed By: #### O BSCRN #### [facility] [address] [place] [address] Dr. Ambrosio Ramirez MONO # 0.4 103/ul Normal 0.3-0.8 [facility] Comment on above: Performed By: #### O BSCRN #### [facility] [address] [place] [address] Dr. Ambrosio Ramirez Monocytes/100 WBC (Bld) 8.2 % Normal 1.7-12.0 [facility] Comment on above: Performed By: #### O BSCRN #### [facility] [address] [place] [address] Dr. Ambrosio Ramirez NEUT # 2.1 103/ul Normal 1.4-6.5 [facility] Comment on above: Performed By: #### O BSCRN #### [facility] [address] [place] [address] Dr. Ambrosio Ramirez Neutrophils/100 WBC (Bld) 41.5 % Critically low 43.0-75.0 [facility] Comment on above: Performed By: #### O BSCRN #### [facility] [address] [place] [address] Dr. Ambrosio Ramirez Platelet mean volume (Bld) [Entitic vol] 9.3 fL Critically low 9.5-13.5 [facility] Comment on above: Performed By: #### O BSCRN #### [facility] [address] [place] [address] Dr. Ambrosio Ramirez PLT 210 103/ul Normal 150-450 [facility] Comment on above: Performed By: #### O BSCRN #### [facility] [address] [place] [address] Dr. Ambrosio Ramirez RBC 4.67 106/ul Normal 4.20-5.40 [facility] Comment on above: Performed By: #### O BSCRN #### [facility] [address] [place] [address] Dr. Ambrosio Ramirez WBC 5.0 103/ul Normal 4.0-11.0 [facility] Comment on above: Performed By: #### O BSCRN #### [facility] [address] [place] [address] Dr. Ambrosio Ramirez FREE THYROXINE INDEX T7on FTI 2.72 Normal 1.30-4.50 [facility] Comment on above: Performed By: #### O BSCRN #### [facility] [address] [place] [address] Dr. Ambrosio Ramirez T3U 32.0 % Normal 30.0-39.0 [facility] Comment on above: Performed By: #### O BSCRN #### [facility] [address] [place] [address] Dr. Ambrosio Ramirez T4 [Mass/Vol] 8.50 ug/dL Normal 4.80-13.90 [facility] Comment on above: Performed By: #### O BSCRN #### [facility] [address] [place] [address] Dr. Ambrosio Ramirez GLYCOHEMOGLOBIN A1Con 2021 ADA RECOMMENDATION SEE BELOW Normal [facility] Comment on above: Result Comment: ADA RECOMMENDED LIMIT 4.0 - 6.0 ADA THERAPEUTIC TARGET < 7.0 ACTION SUGGESTED > 7.0 Performed By: #### A 1C #### [facility] [address] [place] [address] Dr. Ambrosio Ramirez Glucose [Mass/Vol] 108 mg/dL Normal [facility] Comment on above: Performed By: #### A 1C #### [facility] [address] [address] [address] Ambrosio Ramirez HbA1c (Bld) [Mass fraction] 5.4 % Normal 4.5-6.2 [facility] Comment on above: Performed By: #### A 1C #### [facility] [address] [address] [address] Ambrosio Ramirez HIV 1/2 RAPID (EXPOSURE ONLY )on 08-22-2021 HIV AB Negative Normal [facility] Comment on above: Performed By: #### A 1C #### [facility] [address] [address] [address] Ambrosio Ramirez HIV AG Negative Normal [facility] Comment on above: Performed By: #### A 1C #### [facility] [address] [address] [address] Ambrosio Ramirez INTERNAL CONTROLS Within Normal Limits Normal Wi thin Normal Limits [facility] Comment on above: Performed By: #### A 1C #### [facility] [address] [address] [address] Ambrosio Ramirez RAPID HIV INFO SEE BELOW Normal [facility] Comment on above: Result Comment: This test is used for the initial screening of the exposure source. Confirmation of all results will be obtained through reference lab testing. Performed By: #### A 1C #### [facility] [address] [place] [address] Dr. Ambrosio Ramirez IRONon 08-22-2021 Iron [Mass/Vol] 137.0 ug/dL Normal 50.0-170.0 [facility] Comment on above: Performed By: #### I HAMLET #### [facility] [address] [place] [address] Dr. Ambrosio Ramirez LIPID PROFILEon 08-22-2021 CHOL-HDL RATIO NORM SEE BELOW Normal [facility] Comment on above: Result Comment: 3.3 - 4.4 LOW RISK 4.4 - 7.1 AVERAGE RISK 7.1 - 11.0 MODERATE RISK >11.0 HIGH RISK Performed By: #### O BSCRN #### [facility] [address] [place] [address] Dr. Ambrosio Ramirez Cholesterol [Mass/Vol] 251 mg/dL Critically high <=200 [facility] Comment on above: Performed By: #### O BSCRN #### [facility] [address] [address] [address] Ambrosio Ramirez Cholesterol in HDL [Mass/Vol] 67 mg/dL Critically high 40-60 [facility] Comment on above: Performed By: #### O BSCRN #### [facility] [address] [address] [address] Ambrosio Ramirez Cholesterol in LDL [Mass/Vol] 154.8 mg/dL Normal [facility] Comment on above: Performed By: #### O BSCRN #### [facility] [address] [address] [address] Ambrosio Ramirez Cholesterol.total/Cho lesterol in HDL [Mass ratio] 3.7 {ratio} Normal [facility] Comment on above: Performed By: #### O BSCRN #### [facility] [address] [address] [address] Ambrosio Ramirez HDL NORMAL > or = 60 mg/dl - LO W CARDIOVASCULAR RISK <40 mg/dl - HIGH CARDIOVASCULAR RISK Normal [facility] Comment on above: Performed By: #### O BSCRN #### [facility] [address] [address] [address] Ambrosio Ramirez LDL CALC NORMAL SEE BELOW Normal [facility] Comment on above: Result Comment: <100 mg/dl OPTIMAL 100 - 129 mg/dl NEAR OR ABOVE OPTIMAL 130 - 159 mg/dl BORDERLINE HIGH 160 - 189 mg/dl HIGH >190 mg/dl VERY HIGH Performed By: #### O BSCRN #### [facility] [address] [address] [address] Ambrosio Ramirez Triglyceride [Mass/Vol] 146 mg/dL Normal <=150 [facility] Comment on above: Performed By: #### O BSCRN #### [facility] [address] [address] [address] Ambrosio Ramirez VLDL CALC 29.2 mg/dL Normal [facility] Comment on above: Performed By: #### O BSCRN #### [facility] [address] [address] [address] Ambrosio Ramirez PROF 14(COMP METB)on 022 Albumin [Mass/Vol] 4.3 g/dL Normal 3.4-5.0 [facility] Comment on above: Performed By: #### O BSCRN #### [facility] [address] [place] [address] Dr. Ambrosio Ramirez Albumin/Globulin [Mass ratio] 1.2 {ratio} Normal [facility] Comment on above: Performed By: #### O BSCRN #### [facility] [address] [place] [address] Dr. Ambrosio Ramirez ALP [Catalytic activity/Vol] 57 U/L Normal 46-116 [facility] Comment on above: Performed By: #### O BSCRN #### [facility] [address] [place] [address] Dr. Ambrosio Ramirez ALT [Catalytic activity/Vol] 56 U/L Normal 14-59 [facility] Comment on above: Performed By: #### O BSCRN #### [facility] [address] [place] [address] Dr. Ambrosio Ramirez Anion gap [Moles/Vol] 11.5 mmol/L Normal [facility] Comment on above: Performed By: #### O BSCRN #### [facility] [address] [place] [address] Dr. Ambrosio Ramirez AST [Catalytic activity/Vol] 75 U/L Critically high 15-37 [facility] Comment on above: Performed By: #### O BSCRN #### [facility] [address] [place] [address] Dr. Ambrosio Ramirez Bilirubin [Mass/Vol] 0.4 mg/dL Normal 0.2-1.0 [facility] Comment on above: Performed By: #### O BSCRN #### [facility] [address] [place] [address] Dr. Ambrosio Ramirez Calcium [Mass/Vol] 8.7 mg/dL Normal 8.5-10.1 [facility] Comment on above: Performed By: #### O BSCRN #### [facility] [address] [address] [address] Ambrosio Ramirez Chloride [Moles/Vol] 105 mmol/L Normal 98-107 [facility] Comment on above: Performed By: #### O BSCRN #### [facility] [address] [address] [address] Ambrosio Ramirez CO2 [Moles/Vol] 30.3 mmol/L Normal 21.0-32.0 [facility] Comment on above: Performed By: #### O BSCRN #### [facility] [address] [address] [address] Ambrosio Ramirez Creatinine [Mass/Vol] 0.67 mg/dL Normal 0.55-1.02 [facility] Comment on above: Performed By: #### O BSCRN #### [facility] [address] [place] [address] Dr. Ambrosio Ramirez EGFR-AF THAI >60 Normal >=60 [facility] Comment on above: Performed By: #### O BSCRN #### [facility] [address] [address] [address] Ambrosio Ramirez EGFR-NON AF THAI >60 Normal >=60 [facility] Comment on above: Performed By: #### O BSCRN #### [facility] [address] [address] [address] Ambrosio Ramirez Globulin (S) [Mass/Vol] 3.7 g/dL Normal [facility] Comment on above: Performed By: #### O BSCRN #### [facility] [address] [address] [address] Ambrosio Ramirez Glucose [Mass/Vol] 93 mg/dL Normal 74-106 [facility] Comment on above: Performed By: #### O BSCRN #### [facility] [address] [address] [address] Ambrosio Ramirez Potassium [Moles/Vol] 4.8 mmol/L Normal 3.5-5.1 [facility] Comment on above: Performed By: #### O BSCRN #### [facility] [address] [place] [address] Dr. Ambrosio Ramirez Protein [Mass/Vol] 8.0 g/dL Normal 6.4-8.2 [facility] Comment on above: Performed By: #### O BSCRN #### [facility] [address] [place] [address] Dr. Ambrosio Ramirez Sodium [Moles/Vol] 142 mmol/L Normal 136-145 [facility] Comment on above: Performed By: #### O BSCRN #### [facility] [address] [place] [address] Dr. Ambrosio Ramirez Urea nitrogen [Mass/Vol] 8.0 mg/dL Normal 7.0-18.0 [facility] Comment on above: Performed By: #### O BSCRN #### [facility] [address] [place] [address] Dr. Ambrosio Ramirez Urea nitrogen/Creatinine [Mass ratio] 11.9 mg/mg Normal [facility] Comment on above: Performed By: #### O BSCRN #### [facility] [address] [place] [address] Dr. Ambrosio Ramirez TSHon 08-22-2021 TSH 2.117 uIU/mL Normal 0.358-3.740 [facility] Comment on above: Performed By: #### O BSCRN #### [facility] [address] [place] [address] Dr. Ambrosio Ramirez XR CSPINE MIN 4 [...] Cervical fusion hardware with no mechanical failure [id number] degenerative changes of the cervical thoracic spine Electronically authenticated by: GEORGE ROWE Date: 2021-08-22 21:07 Normal [facility] Vital Signs Date Time Vital Sign Value Performing Clinician Facility 01-12-2024 13:34-0500 Blood Pressure Location [facility] 01-12-2024 13:34-0500 Diastolic blood pressure 67 mm[Hg] LEIGH AMBER [facility] 01-12-2024 13:34-0500 Heart rate 84 /min LEIGH AMBER [facility] 01-12-2024 13:34-0500 Respiratory rate 20 /min LEIGH AMBER [facility] 01-12-2024 13:34-0500 Systolic blood pressure 117 mm[Hg] LEIGH AMBER [facility] 05-09-2022 10:14-0400 Diastolic blood pressure 85 mm[Hg] SCALLOPER-C Ama Jerry Work Phone: [facility] 05-09-2022 10:14-0400 Heart rate 99 /min SCALLOPER-C Ama Jerry Work Phone: [facility] 05-09-2022 10:14-0400 Respiratory rate 18 /min SCALLOPER-C Ama Jerry Work Phone: [facility] 05-09-2022 10:14-0400 SaO2% (BldA) [Mass fraction] 99 % SCALLOPER-C Ama Jerry Work Phone: [facility] 05-09-2022 10:14-0400 Systolic blood pressure 124 mm[Hg] SCALLOPER-C Ama Jerry Work Phone: [facility] 05-09-2022 08:04-0400 Body height 180.34 cm SCALLOPER-C Ama Jerry Work Phone: [facility] 05-09-2022 08:04-0400 Body weight 58.96 kg SHANE-C Ama Edwards Work Phone: [facility] 05-01-2022 11:15-0500 Body height Imad Asaad Other [employer] Other 05-01-2022 11:15-0500 Body mass index (BMI) [Ratio] 18.13 kg/m2 Imad Asaad Other [employer] Other 05-01-2022 11:15-0500 Body weight 58.97 kg Imad Asaad Other [employer] Other 05-01-2022 11:15-0500 Diastolic blood pressure 102 mm[Hg] Imad Asaad Other [employer] Other 05-01-2022 11:15-0500 Respiratory rate 16 /min Imad Asaad Other [employer] Other 05-01-2022 11:15-0500 Systolic blood pressure 158 mm[Hg] Imad Asaad Other [employer] Other Encounters Encounter Date Encounter Type Care Provider Facility Start: 02-08-2024 End: 02-08-2024 ambulatory Manuel Reynaga MD Facility:[facility] Start: 02-02-2024 End: 02-02-2024 ambulatory Ama Edwards Facility:[facility] Start: 01-12-2024 End: 01-12-2024 Lab Drop off [facility] Start: 01-12-2024 End: 01-12-2024 ambulatory LEIGH CLARK Facility:[facility] Start: 01-12-2024 End: 01-12-2024 Patient encounter procedure [facility] Start: 12-28-2023 End: 12-28-2023 ambulatory Manuel Reynaga MD Facility: [facility] Start: 12-22-2023 End: 12-22-2023 ambulatory LEIGH CLARK Facility:[facility] Start: 12-22-2023 End: 12-22-2023 Patient encounter procedure LEIGH Mcleod AMBER [facility] Start: 12-14-2023 End: 12-14-2023 ambulatory Manuel Reynaga MD Facility: [facility] Start: 11-23-2023 ambulatory [facility]IGH CLARK Facility :[facility] Start: 09-21-2023 End: 09-21-2023 ambulatory Manuel Reynaga MD Facility: [facility] Start: 08-31-2023 End: 08-31-2023 ambulatory Andkrishna Lugoitis Facility: [facility] Start: 08-17-2023 End: 08-17-2023 ambulatory Manuel Lugoitis Facility: [facility] Start: 07-06-2023 End: 07-06-2023 ambulatory Andkrishna Lugoitis Facility: [facility] Start: 05-09-2022 End: 05-09-2022 Admission to same day surgery center SCALLOPER-C Ama Edwards Work Phone: [facility] Work Phone: Start: 05-09-2022 End: 05-09-2022 ambulatory SCALLOPER-C Ama Edwards Work Phone: [facility] Work Phone: Start: 05-02-2022 End: 05-02-2022 ambulatory Imad Asaad Other [employer] Other Start: 05-02-2022 Telephone encounter Imad Asaad [facility] Start: 05-01-2022 End: 05-01-2022 ambulatory Imad Asaad Other [employer] Other Start: 05-01-2022 Office consultation new/estab patient [...] Procedure Detail Performing Clinician Start: 05-09-2022 Esophagogastroduodenoscopy SCALLOPER-C Ama patel Work Phone: Colonoscopy [facility] Screening for malign ant neoplasm of colon Imad Asaad Other Surgical procedure o n cervical spine [facility] Tonsillectomy [facility] Plan of Treatment Date Care Activity Detail Author Start: 05-09-2022 [facility] Patient Education Colon Polyps H emorrhoids (DC) Diverticulosis (DC) Gastritis (DC) [facility] Work Phone: Payers Date Payer Category Payer Self-pay 2022 Unknown 1960 Unknown [id number] 2.16.84 [id number] 1960 Unknown [id number] 2.16.84 [id number] 1960 Unknown [id number] 2.16.84 [id number] 1960 Unknown [id number] 2.16.84 [id number] 1960 Unknown [id number] 2.16.84 [id number] 1962 Unknown [id number] 2.16.84 [id number] 1962 Unknown [id number] 2.16.84 0.1.148352.3.579.2.593 1962 Unknown [id number] 2.16.8 40.1.215116.3.579.2.727 1962 Unknown [id number] 2.16.8 40.1.188585.3.579.2.727 1962 Unknown [id number] 2.16. 840.1.383858.3.579.2.196 1962 Unknown [id number] 2.16. 840.1.732114.3.579.2.196 1962 Unknown [id number] 2.16. 840.1.212395.3.579.2.196 1962 Unknown [id number] 2.16. 840.1.415242.3.579.2.196 1962 Unknown [id number] 2.16. 840.1.567060.3.579.2. 1962 Unknown [id number] 2.16. 840.1.464506.3.579.2.196 1960 Unknown [id number] 2.16. [id number] 1957 Medicare [id number] 21 [id number] 1959 Unknown [id number] 1959 Unknown [id number] 1959 Unknown [id number] Unknown [id number] 2.16.8 [id number] Social History Date Type Detail Facility Start: 05-09-2022 Tobacco smoking stat [facility] Smoker (finding) [facility] Start: 1960 Sex Assigned At Female F [facility] Sex Assigned At [facility] Tobacco smoking status No Smokin g Status Entered [facility] Start: 01-12-2024 Tobacco smoking status Heavy t obacco smoker (finding) [facility] Goals Date Patient Goal Desired Activity /State Functional Status Date Assessment Result Facility 01-12-2024 Functional Status N/A [facility] Clinical Notes 05-01-2022 to 01-12-2024 Note [...] your health care provider. General instructions Take eapx-kzw-qxbuplv and prescription medicines only as told by [...] provider. Document Revised: 10/29/2020 Document Reviewed: 10/29/2020 [employer] Patient Education 2023 [employer]. Follow Up Care 01/05/2024 13:19:21 With:AMBER MONAHAN, LEIGH Mcleod, URL Address: [address] [place] [address] Business (1) When: only if needed [facility] 01-12-2024 Note Patient Education Obstetrics and [...] health care provider. General instructions ??? Take uxts-wrw-tujohlb and prescription medicines only as told by [...] drink, and whe (more content not included)... [facility] 01-12-2024 Evaluation + Plan note Diagnostic Tests PendingUrine Culture 01/12/24 [facility] 05-09-2022 Procedure note [facility] 05-01-2022 Evaluation note Encounter Date Diagnosis Assessment Notes Apr, Dysphagia (ICD-10 - R13.10) Apr, Weight loss (ICD-10 - R63.4) Apr, Colon cancer screening (ICD-10 - Z12.11) [employer] Other Evaluation + Plan note No data available for this section [facility] evaluation noteNo assessment information available [facility] Work Phone: Evaluation noteNo InformationNort Hipster Other History general Narrative - Reported* Type Description Date Medical History Anxiety/Depression Surgical History Neck surgery Surgical History Tonsillectomy Hospitalization History See above [employer] Other Hospital Discharge instructions Additional Instructions DISCHARGE [...] NOT operate machinery such as power tools, emoquon mowers, snow blowers, sewing machines, etc. for [...] -Follow up with PCP. - Office number [phone]. [facility] Work Phone: Hospital Discharge instructions No data available for this section [facility] progress note No data available for this section [facility] Chief Complaint and Reason for [...] and content) DATE CREATED AUTHOR 07/02/2022 [facility] DATE CREATED AUTHOR AUTHOR'S ORGANIZ ATION 01/15/2024 [facility] DATE CREATED AUTHOR AUTHOR'S ORGANIZ ATION 01/17/2024 [facility] DATE CREATED AUTHOR AUTHOR'S ORGANIZ ATION 02/06/2024 [facility] DATE CREATED AUTHOR AUTHOR'S ORGANIZ ATION 02/11/2024 [facility] DATE CREATED AUTHOR AUTHOR'S ORGANIZ ATION 02/17/2024 [facility] FOR RECORDS PERTAINING TO PATIENTS WHO ARE [...] BE BASED ON THE PRIMARY CLINICAL RECORDS. [facility]. provides no warranty or guarantee of the accuracy or completeness of information in this document.
--- NOTE | 2024-07-13 14:19 | PM.CN ---
Consult Note: HPI Data of Consult Patient: known to practice within the last 3 years Requesting Physician: Angle Brownlee NP Primary Care Provider: SOLITARIO EDWARDS Consult Narrative Reason for consult: f/u Narrative: Nancy Joyce a pleasant 63 year old female presents for evaluation of chronic neck pain post cervical fusion. failed > 6 weeks of PT and provider guided HEP. failed tylenol and NSAIDs as well as heat and ice. Pain today 6/10 with numbness and tingling in neck. pt utilizing tramadol 50-100mg BID and norflex 100mg BID PRN with benefit without side effects. since last visit underwent updated cervical MRI and is pending evaluation with NS. 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 cc:: CC: Angle Brownlee NP Review of Systems ROS Musculoskeletal Reports: back pain and neck pain PFSH PFSH Medical History History of needle biopsy ?Z98.890 - Other specified postprocedural states (ICD-10) Dyspnea on exertion ?R06.09 - Other forms of dyspnea (ICD-10) Colon polyp ?K63.5 - Polyp of colon (ICD-10) Fibromyalgia ?M79.7 - Fibromyalgia (ICD-10) Back pain ?M54.9 - Dorsalgia, unspecified (ICD-10) Arthritis ?M19.90 - Unspecified osteoarthritis, unspecified site (ICD-10) Claustrophobia ?F40.240 - Claustrophobia (ICD-10) Insomnia ?G47.00 - Insomnia, unspecified (ICD-10) Heartburn ?R12 - Heartburn (ICD-10) Diverticulitis ?K57.92 - Diverticulitis of intestine, part unspecified, without perforation or abscess without bleeding (ICD-10) Degeneration of lumbosacral intervertebral disc ?M51.37 - Other intervertebral disc degeneration, lumbosacral region (ICD-10) Spondylolisthesis, lumbar region ?M43.16 - Spondylolisthesis, lumbar region (ICD-10) Cervical disc displacement ?M50.20 - Other cervical disc displacement, unspecified cervical region (ICD-10) Spinal stenosis, cervical region ?M48.02 - Spinal stenosis, cervical region (ICD-10) Other cervical disc degeneration, high cervical region ?M50.31 - Other cervical disc degeneration, high cervical region (ICD-10) Anxiety ?F41.9 - Anxiety disorder, unspecified (ICD-10) Depression ?F32.A - Depression, unspecified (ICD-10) Bronchitis ?J40 - Bronchitis, not specified as acute or chronic (ICD-10) HTN (hypertension) ?I10 - Essential (primary) hypertension (ICD-10) Intervertebral disc degeneration Myofascial pain ?M79.18 - Myalgia, other site (ICD-10) Lumbar stenosis with neurogenic claudication ?M48.062 - Spinal stenosis, lumbar region with neurogenic claudication (ICD-10) Chronic use of benzodiazepine for therapeutic purpose ?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 (ICD-10) Greater trochanteric bursitis of both hips ?M70.61 - Trochanteric bursitis, right hip (ICD-10) ?M70.62 - Trochanteric bursitis, left hip (ICD-10) Muscle spasm ?M62.838 - Other muscle spasm (ICD-10) Cervical postlaminectomy syndrome ?M96.1 - Postlaminectomy syndrome, not elsewhere classified (ICD-10) Cervical spondylosis ?M47.812 - Spondylosis without myelopathy or radiculopathy, cervical region (ICD-10) Upper back pain ?M54.9 - Dorsalgia, unspecified (ICD-10) Neck pain ?M54.2 - Cervicalgia (ICD-10) Smoker ?F17.200 - Nicotine dependence, unspecified, uncomplicated (ICD-10) Surgical History H/O lumbosacral spine surgery ?Z98.890 - Other specified postprocedural states (ICD-10) History of colonoscopy ?Z98.890 - Other specified postprocedural states (ICD-10) S/P epidural steroid injection ?Z92.241 - Personal history of systemic steroid therapy (ICD-10) History of tonsillectomy ?Z90.89 - Acquired absence of other organs (ICD-10) H/O cervical spine surgery ?Z98.890 - Other specified postprocedural states (ICD-10) Family History Other Family history of breast cancer Social History Within the past year, how often did you have a drink containing alcohol: 2-4 times a month Smoking status: Current every day smoker What tobacco products do you use: cigarettes Packs per day: 1 Years smoked: 45 Smoking pack-years: 45.00 Highest level of school completed/degree received: 9th grade Meds Home Medications and Allergies Home Medications ?Medication ?Instructions ?Recorded ?Confirmed ?Type omeprazole 40 mg capsule,delayed 40 mg PO DAILY 08/31/23 02/02/24 History release albuterol sulfate 90 mcg/actuation 2 inh inhalation Q6H PRN shortness 09/25/23 12/28/23 History aerosol inhaler of breath or wheezing trazodone 50 mg tablet 50 mg PO QPM PRN sleep 09/25/23 01/12/24 History orphenadrine citrate 100 mg 100 mg PO BID PRN Muscle spasms 30 10/11/23 01/12/24 Rx tablet,extended release days #60 tabs tramadol 50 mg tablet 50 mg PO Q4H PRN pain 12/14/23 01/12/24 History acetaminophen 650 mg 650 mg PO Q12H PRN pain 12/28/23 12/28/23 History tablet,extended release naloxone 4 mg/actuation nasal 4 mg intranasal Q2M PRN opioid 01/06/24 Rx spray (Narcan) overdose #1 ea diazepam 5 mg tablet 5 mg PO DAILY 01/12/24 02/02/24 History tiotropium bromide 2.5 2 inh inhalation DAILY 01/12/24 02/02/24 History mcg/actuation mist for inhalation (Spiriva Respimat) tramadol 100 mg capsule 100 mg PO DAILY PRN pain #30 caps 02/02/24 Rx 24h,extended release(25-75) tramadol 50 mg tablet See Rx Instructions .Route 02/03/24 Rx .COMPLEX PRN pain #95 tabs tramadol 50 mg tablet See Rx Instructions .Route 03/04/24 Rx .COMPLEX PRN pain #95 tabs tramadol 100 mg capsule 100 mg PO DAILY PRN pain, moderate 05/12/24 Rx 24h,extended release(25-75) #30 caps Allergies Allergy/AdvReac Type Severity Reaction Status Date / Time No Known Drug Allergies Allergy Verified 02/02/24 14:18 Exam Constitutional Documenting provider has reviewed patient's vital signs: yes Common normals: no apparent distress, oriented x3, healthy appearing, alert and well nourished General appearance: cooperative HENMT Common normals: normocephalic, hearing grossly normal bilaterally and moist oral mucous membranes Head and scalp: normocephalic Eye Common normals: PERRL Pupil: PERRL Neck & C-Spine Common normals: full ROM General: normal visual inspection Cervical spine: cervical ROM abnormal, pain with cervical ROM and cervical spine tenderness Other: strength 4/5 in BUE sensation intact BUE positive spurlings Chest Common normals: inspection of chest normal Respiratory Common normals: normal respiratory effort, no retractions and no use of accessory muscles Neuro Common normals: oriented x3 Sensorium/orientation: alert Motor exam: strength 5/5 throughout and no movement abnormalities noted Psych Common normals: mental status grossly normal, thought process normal, cooperative, affect normal, speech normal and activity/motor behavior normal Speech: normal speech Thought process: normal thought process Results Additional Findings Additional findings: If on a controlled substance or opioids, I have checked an [place] report on this patient and there are no aberrancies noted in the prescribing history.??If on a controlled substance or opioid a drug screen was completed and reviewed within the last year, and if there has not been a drug screen completed we ordered one today to monitor higher risk, state monitored pain medication use. As part of providing excellent, safe, comprehensive care, the following was completed at our patient's visit: 1. A medication reconciliation and review to ensure accurate knowledge of current/active medications, including asking our patients to inform us about any [id number] medications or herbal remedies/nutritional supplements/alternative remedies. 2. A review to specifically ensure our patients have had annual screening for screening for depression, screening for tobacco use, and screening for unhealthy alcohol use. For concerning screenings had a discussion with the patient, provided patient education, and recommended follow-up with primary care provider when appropriate. If patient noted with a risk of falling, they received education on strength, gait, and balance training to prevent future risk of falling. Portions of this note may have been carried over from the previous visit and updated as appropriate. Please note this office utilizes paper charting in addition to the electronic medical record. A list of current medications, vitals, and PMH is available there as the clinical staff outside of myself do not have access to [employer] charting during the clinic day operations. As part of providing quality comprehensive care the current medications, vitals, and PMH were reviewed in the paper chart. Assessment and Plan Assessment and Plan (1) Failed neck syndrome: (2) Myalgia, other site: (3) Chronic use of opiate for therapeutic purpose: Plan continue f/u with NS as planned. random UDS today. 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 pt asked to bring in xanax for pill count and disposal within 24 hours. if pt UDS reveals benzodiazpines will dismiss as pt reports she has not taken any. if uds and pill count appropriate will maintain current medication regimen and f/u 3 months.
== END 2024-07-13 13:48 | disposition home or self-care (01) ==
LOC: PM 13:48
PROVIDERS: PCP Nurse Practitioner Family; Visit Provider Nurse Practitioner
DX: M96.1 Postlaminectomy syndrome, not elsewhere classified (principal); M79.10 Myalgia, unspecified site; Z79.891 Long term (current) use of opiate analgesic
CPT/HCPCS: G0463